=== PATIENT | female | born 1970 | race Caucasian/White ===

== ENCOUNTER → 2017-11-21 16:38 | Outpatient (CLI) | payer MEDICARE, MEDICAID, SELFPAY ==
[2017-11-21 18:05] LABS: Absolute Lymphocyte Count 4.84 X10^3/ul (0.83-4.51); Absolute Neutrophil Count 9.9 X10^3/uL (2.0-7.7); Basophil# 0.04 X10^3/uL; Basophil% 0.3 % (0-1); Eosinophils% 1.9 % (0-5); Hematocrit 42.8 % (37-47); Hemoglobin 13.7 g/dl (12.0-15.0); Lymphocyte # 4.84 X10^3/ul (4.0); Lymphocyte % 30.8 % (19-41); Mean Corpuscular Hgb 29.7 pg (27.0-32.0); Mean Corpuscular Volume 92.6 fL (81-99); Mean Platelet Vol. 10.3 fl (6.2-12.0); Monocyte# 0.57 X10^3/uL; Monocyte% 3.6 % (0-10); Neutrophil # 9.93 X10^3/uL (2.7-7.7); Neutrophil % 63.1 % (47-70); Platelet Count 393 K/mm3 (150-450); RBC Distribution Width SD 51.4 fl (35.1-43.9); Red Blood Count 4.62 M/mm3 (4.2-5.4); White Blood Count 15.7 K/mm3 (4.4-11.0)
[2017-11-21 18:06] LABS: POSITIVE COUNT NO; POSITIVE DIFFERENTIAL NO; POSITIVE MORPHOLOGY NO
[2017-11-21 18:17] LABS: Erythrocyte Sedimentation Rate 50 mm/hr (0-20)
[2017-11-23 13:00] LABS: ANTINUCLEAR ANTIBODIES DIRECT Negative (Negative)
== END ==
PROVIDERS: Family Provider Family Medicine; PCP Family Medicine; Visit Provider Family Medicine
DX: R89.9 Unspecified abnormal finding in specimens from other organs, systems and tissues (principal)
CPT/HCPCS: 36415; 85025; 85652; 86038; 86140

== ENCOUNTER → 2017-11-23 15:43 | Outpatient (CLI) | payer MEDICARE, MEDICAID, SELFPAY ==
--- NOTE | 2017-11-23 15:44 | MRI_ITS ---
STUDY: MRI LUMBAR SPINE WITHOUT CONTRAST REASON FOR EXAM: Female, 47 years old. Back pain and bilateral leg pain TECHNIQUE: Standardized fat and water weighted pulse sequences were obtained in the sagittal and axial planes. COMPARISON: None FINDINGS: T12-L1: Normal endplates. Normal disc height, hydration and morphology. Normal bilateral facet joints. Normal central canal and bilateral lateral recesses. Normal bilateral intervertebral neural foramina. Normal lumbar lordosis. There is no substantial scoliosis. Normal conus medullaris that terminates at the L1 level. L1-2: Mild bulging annulus with bilateral facet and ligamentum flavum hypertrophy. Minimal central canal stenosis. L2-3: Disc desiccation. Bilateral facet and ligamentum flavum hypertrophy with mild to moderate central canal stenosis. L3-4: Disc desiccation and L4 Schmorl's node. Mild bulging annulus with superimposed left foraminal annular fissure and bilateral facet and ligamentum flavum hypertrophy. Mild to moderate central canal stenosis and mild right foraminal stenosis. L4-5: Disc space narrowing and desiccation with anterior osteophytes. Bulging annulus with bilateral facet and ligamentum flavum hypertrophy. Moderate central canal stenosis and moderate to severe bilateral lateral recess stenoses. Moderate to severe right and moderate left foraminal stenoses. L5-S1: Disc desiccation and discogenic endplate changes. Bulging annulus and left foraminal osteophyte with bilateral facet and ligamentum flavum hypertrophy. Moderate left lateral recess stenosis. Severe left and moderate right foraminal stenoses. Normal visualized sacral ala. Normal visualized paraspinous soft tissue structures. MRI/Spine Lumbar (Routine) IMPRESSION: Multilevel degenerative disc and facet disease as described. Severe left foraminal stenosis at L5-S1. Moderate to severe bilateral lateral recess stenoses at L4-5. Moderate to severe right foraminal stenosis at L4-5. Electronically Signed: Tommy Petersen MD at 3:30 EST Tel , Service support ,
== END ==
PROVIDERS: Family Provider Family Medicine; PCP Family Medicine; Visit Provider Orthopaedic Surgery
DX: M54.5 Low back pain (principal); G89.29 Other chronic pain
CPT/HCPCS: 72148

== ENCOUNTER → 2017-12-13 15:43 | Outpatient (CLI) | payer MEDICARE, MEDICAID, SELFPAY ==
--- NOTE | 2017-12-13 15:45 | CT_ITS ---
STUDY: CT ABDOMEN WITH CONTRAST REASON FOR EXAM: Female, 47 years old. Persistent epigastric pain. RADIATION DOSAGE (If Supplied By Facility): CTDIvol = ( 20.34 ) mGy, DLP = ( 870.54 ) mGycm TECHNIQUE: Transaxial images were obtained post I.V. administration of 100mL ml of Isovue 300 contrast, and with oral contrast. Sagittal and coronal images were reconstructed. Individualized dose optimization techniques were used for this CT. COMPARISON: 02/25/2016. FINDINGS: The visualized lung bases are unremarkable. The visualized portions of the heart are within normal limits. There is decreased attenuation of the liver consistent with steatosis. There is marked hepatomegaly. There is non-visualization of the gallbladder, which may be secondary to either contraction or a prior cholecystectomy. Normal spleen. Normal pancreas. Normal bilateral adrenal glands. No acute abnormalities of the kidneys. Both kidneys show small cortical scars. Both kidneys show partial duplication with pronounced on the left. Stable nonobstructing 1 mm stone in the lower pole of the right kidney. Stable 7 mm nonobstructing stone in the lower pole of left kidney. Normal visualized stomach. Normal small intestine. Normal colon. There is non-visualization of the appendix. Normal abdominal aorta. Normal inferior vena cava. There is borderline retroperitoneal lymphadenopathy with enlarged nodes no greater than 10mm in the short axis diameter. Normal abdominal wall. There are diffuse degenerative changes of the visualized lumbar spine. CT/Abdomen WITH IV Contrast IMPRESSION: There is no definite acute abnormality. Marked fatty liver and hepatomegaly. Bilateral duplicated and scarred kidneys, with nonobstructing renal stones. Electronically Signed: Boy Castañeda MD at 16:41 EST , Service support ,
[2017-12-13 16:00] LABS: CREATININE FINGERSTICK 1.2 mg/dL (0.55-1.02)
== END ==
PROVIDERS: Family Provider Family Medicine; PCP Family Medicine; Visit Provider Family Medicine
DX: R10.13 Epigastric pain (principal)
CPT/HCPCS: 74160; Q9967

== ENCOUNTER → 2018-01-19 10:00 | Outpatient (CLI) | payer MEDICARE, MEDICAID, SELFPAY ==
--- NOTE | 2018-01-19 10:11 | NM_ITS ---
CLINICAL: 47-year-old female with reported history of chronic abdominal pain. SEMI-SOLID PHASE 99m Tc SULFUR COLLOID GASTRIC EMPTYING STUDY COMPARISON: CT of the abdomen report 12/13/2017 FINDINGS: The patient was administered 1.1 mCi of 99m Tc sulfur colloid mixed with oatmeal and consumed per os. Image acquisitions in the anterior-posterior projections for a total of 60 minutes. There is prompt visualization of the stomach. There is no gastroesophageal reflux identified. First order kinetics are maintained throughout the duration of the acquisitions. The T1/2 linear fit was calculated to be 265.68 minutes, (Normal: 12-56 minutes). NM/Gastric Emptying Study IMPRESSION: 1. ABNORMAL 99m Tc sulfur colloid semi-solid phase (oatmeal) gastric emptying imaging examination. A. There is significantly delayed semi-solid phase gastric emptying compared to normal controls with maintained first order kinetics throughout all components of the examination. (Norberto healy al, J Nucl Med Tech 38: 186, 2010). Electronically Signed: Abdoul Harris DO at 13:31 EDT Tel , Service support ,
== END ==
PROVIDERS: Family Provider Family Medicine; PCP Family Medicine; Visit Provider Internal Medicine Gastroenterology
DX: R10.13 Epigastric pain (principal)
CPT/HCPCS: 78264; A9541

== ENCOUNTER 2018-01-29 09:23 | Inpatient (IN) | payer MEDICARE, MEDICAID, SELFPAY ==
[2018-01-29] VITALS (8 sets, daily range): BP systolic 103–148; BP diastolic 55–69; PULSE 72–81; RESP 13–20; TEMP 36.9–37.2; O2SAT 92–98; BMI 40.6
[2018-01-29 09:36] LABS: Bedside Glucose 146 mg/dL (70-110)
--- NOTE | 2018-01-29 09:42 | RAD_ITS ---
STUDY: X-RAY CHEST REASON FOR EXAM: Female, 47 years old. Mental status changes. TECHNIQUE: Single AP portable view of the chest. COMPARISON: Comparison is made with prior study dated February 08, 2016. FINDINGS: EKG electrodes are seen. The lungs are clear and expanded. There is no demonstrated pleural abnormality. Normal size heart. Normal mediastinum and geovanna. Normal visualized pulmonary arteries. Normal visualized aortic arch and descending thoracic aorta. Normal visualized thoracic spine. Normal visualized ribs, clavicles, and shoulders. There is no demonstrated abnormality of the visualized soft tissue structures of the upper abdomen. RAD/Chest 1 View (Portable) IMPRESSION: Normal x-ray examination of the chest. Electronically Signed: Rufus Pike MD at 10:20 EDT Tel [phone], Service support ,
--- NOTE | 2018-01-29 09:42 | EKG12_ITS ---
Test Reason : CONFUSION Blood Pressure : / mmHG Vent. Rate : 078 BPM Atrial Rate : 078 BPM P-R Int : 146 ms QRS Dur : 080 ms QT Int : 380 ms P-R-T Axes : 064 028 047 degrees QTc Int : 433 ms Normal sinus rhythm Normal ECG Confirmed by EAN CRABTREE, [place] ([id number]), scientific publications editor VÍCTOR IRBY ([id number]) on 01/30/2018 3:16:57 PM Referred By: CRIS/DALILA Confirmed By:[place] MCKOY MD
--- NOTE | 2018-01-29 09:42 | CT_ITS ---
STUDY: CT BRAIN WITHOUT CONTRAST REASON FOR EXAM: Female, 47 years old. Contusion since last night. RADIATION DOSAGE (If Supplied By Facility): CTDIvol = ( 44.99 ) mGy, DLP = ( 745.49 ) mGycm TECHNIQUE: Transaxial CT imaging of the brain was performed without administration of intravenous contrast material. Individualized dose optimization techniques were used for this CT. COMPARISON: None. FINDINGS: Normal soft tissue structures. Normal calvarium. Normal size ventricles and extra-axial spaces for the patient's age. Normal white matter tracts of the cerebral hemispheres. Normal basal ganglia and thalami. Normal brainstem. Normal cerebellum. There is no intracranial hemorrhage. There are no findings of an acute ischemic infarction. Normal visualized paranasal sinuses. Empty sella. CT/Brain/Head without Contrast IMPRESSION: Normal unenhanced CT scan of the brain. Electronically Signed: Rufus Pike MD at 10:30 EDT Tel [phone], Service support ,
--- NOTE | 2018-01-29 09:47 | ED.VISSUMM ---
- ER Visit Summary Date of Service: 01/29/18 Chief Complaint: Confusion History of Present Illness: The patient is a 47 F 3 of chronic pain, reflux, rjs-kqmgdyu-bvheqionj diabetes, hypothyroidism and chronic back pain. Patient brought in by her significant other who has been her male disposal plant operator for 20 years. He states he has never seen her like this. Last night she seemed confused. Since he was sleeping comfortably trouble waking her it was throughout the night. Since he is more confused today and he brought her in for evaluation. He denies any head injury or head trauma. No fever. No vomiting or diarrhea. No recent med changes. She is on chronic Percocet and fentanyl patches for chronic pain. He denies ever using any illicit drugs. Physical Examination: Middle-aged female no acute distress. Initial blood pressure 117/64. Pulse ox 94% on room air no signs of hypoxia. Her initial blood sugar is 146 per the nursing staff. HEENT exam no facial trauma. No scalp or head trauma. Pupils round reactive light. Her eyes are open. She is answering questions. There is no facial droop. Her slurred speech. Neck nontender no meningismus. Lungs clear to auscultation bilaterally. Heart regular rhythm no murmur. Chest wall nontender. Abdomen soft nondistended normal bowel sounds no peritoneal signs. She is moving all 4 extremities. Back exam nontender. Skin unremarkable. No petechiae or purpura. Neurologically she is awake she will answer questions. At times she does seem somewhat somnolent but easily arousable. She is confused to the day, month and year. She does seem confused. But has normal motor activity. Test Results: No acute abnormality reviewed by me read by the radiologist. Chest x-ray no acute abnormality. CBC white count 14,000 reviewing her old labs she has had multiple prior elevated white counts in the past. Normal H&H. Electrolytes unremarkable. Gap is 6. Glucose 139. She does have elevated BUN and creatinine of 41 and 2.66. Her prior most recent creatinine was 1.2. Liver enzymes normal. UA 25-50 red cells otherwise unremarkable no signs of infection. Emergency Department Course and Treatment: Middle aged diabetic female with confusion and mental status change. Treatment Plan: Jc exam no change patient remains confused. She does not know day, month or year. She has no motor deficits. I spoke to the hospitalist Dr. Sánchez and he will evaluate her for admission for confusion. Disposition: Admission Impression: Acute confusion with decreased mental status uncertain etiology Chronic pain syndrome History of diabetes This note was generated with e[employer] dictation software. It may contain incorrect words, spelling, and punctuation that were not noted in review of the chart prior to signing ED Disposition - Plan for ED Patient: Chief Complaint: Confusion Referrals: Aron Palumbo MD [Primary Care Provider] -
--- NOTE | 2018-01-29 09:50 | ED.DCSUM_ITS ---
- ER Visit Summary Date of Service: 01/29/18 Chief Complaint: Confusion History of Present Illness: The patient is a 47 F 3 of chronic pain, reflux, non -insulin-dependent diabetes, hypothyroidism and chronic back pain. Patient brought in by her significant other who has been her male care manager cna for 20 years. He states he has never seen her like this. Last night she seemed confused. Since he was sleeping comfortably trouble waking her it was throughout the night. Since he is more confused today and he brought her in for evaluation. He denies any head injury or head trauma. No fever. No vomiting or diarrhea. No recent med changes. She is on chronic Percocet and fentanyl patches for chronic pain. He denies ever using any illicit drugs. Physical Examination: Middle-aged female no acute distress. Initial blood pressure 117/64. Pulse ox 94% on room air no signs of hypoxia. Her initial blood sugar is 146 per the nursing staff. HEENT exam no facial trauma. No scalp or head trauma. Pupils round reactive light. Her eyes are open. She is answering questions. There is no facial droop. Her slurred speech. Neck nontender no meningismus. Lungs clear to auscultation bilaterally. Heart regular rhythm no murmur. Chest wall nontender. Abdomen soft nondistended normal bowel sounds no peritoneal signs. She is moving all 4 extremities. Back exam nontender. Skin unremarkable. No petechiae or purpura. Neurologically she is awake she will answer questions. At times she does seem somewhat somnolent but easily arousable. She is confused to the day, month and year. She does seem confused. But has normal motor activity. Test Results: No acute abnormality reviewed by me read by the radiologist. Chest x-ray no acute abnormality. CBC white count 14,000 reviewing her old labs she has had multiple prior elevated white counts in the past. Normal H&H. Electrolytes unremarkable. Gap is 6. Glucose 139. She does have elevated BUN and creatinine of 41 and 2.66. Her prior most recent creatinine was 1.2. Liver enzymes normal. UA 25-50 red cells otherwise unremarkable no signs of infection. Emergency Department Course and Treatment: Middle aged diabetic female with confusion and mental status change. Treatment Plan: Jc exam no change patient remains confused. She does not know day, month or year. She has no motor deficits. I spoke to the hospitalist Dr. Sánchez and he will evaluate her for admission for confusion. Disposition: Admission Impression: Acute confusion with decreased mental status uncertain etiology Chronic pain syndrome History of diabetes This note was generated with [employer] dictation software. It may contain incorrect words, spelling, and punctuation that were not noted in review of the chart prior to signing ED Disposition - Plan for ED Patient: Chief Complaint: Confusion Referrals: Aron Palumbo MD [Primary Care Provider] -
[2018-01-29 09:58] LABS: Absolute Lymphocyte Count 3.59 X10^3/ul (0.83-4.51); Absolute Neutrophil Count 9.4 X10^3/uL (2.0-7.7); Basophil# 0.03 X10^3/uL; Basophil% 0.2 % (0-1); Eosinophil# 0.21 X10^3/uL; Eosinophils% 1.5 % (0-5); Hematocrit 39.2 % (37-47); Hemoglobin 12.7 g/dl (12.0-15.0); Lymphocyte # 3.59 X10^3/ul (4.0); Lymphocyte % 25.7 % (19-41); Mean Corp Hgb Conc 32.4 g/gl (32-36); Mean Corpuscular Hgb 29.5 pg (27.0-32.0); Mean Platelet Vol. 9.3 fl (6.2-12.0); Monocyte# 0.71 X10^3/uL; Monocyte% 5.1 % (0-10); Neutrophil # 9.42 X10^3/uL (2.7-7.7); Neutrophil % 67.3 % (47-70); Platelet Count 330 K/mm3 (150-450); RBC Distribution Width CV 14.3 % (11.6-14.6); RBC Distribution Width SD 47.5 fl (35.1-43.9); Red Blood Count 4.31 M/mm3 (4.2-5.4)
[2018-01-29 09:59] LABS: POSITIVE COUNT NO; POSITIVE DIFFERENTIAL NO; POSITIVE MORPHOLOGY NO
[2018-01-29 10:16] LABS: AST(SGOT) 31 U/L (15-37); Alanine Aminotransfer ALT/SGPT 29 U/L (13-56); Albumin, Serum 3.8 g/dL (3.2-5.0); Alkaline Phosphatase 73 U/L (45-117); Anion Gap 6 (5-15); BUN 41 mg/dL (7-18); BUN/Creat Ratio 15.4 RATIO (10-20); Bilirubin, Direct 0.13 mg/dL (0.00-0.30); Calcium,Total 8.7 mg/dL (8.5-10.1); Chloride 111 mmol/L (98-107); Creatinine, Serum 2.66 mg/dL (0.55-1.02); EST Glomerular Filtration Rate 20 mL/min (>60); Est Glom Filt Rate - Afr Amer 25 mL/min (>60); Estimated Creatinine Clearance 23.27 ml/min; Globulin 3.6 g/dL (2.2-4.2); Glucose 139 mg/dL (74-106); Potassium 5.1 mmol/L (3.5-5.1); Protein, Total 7.4 g/dL (6.4-8.2); Sodium Level 141 mmol/L (136-145)
[2018-01-29 10:33] LABS: Mucous, Urine 0 SEEN /hpf (<or=2+); White Blood Cells 0 SEEN /hpf (0-5)
[2018-01-29 10:35] LABS: Color, Urine Yellow (Yellow); Glucose, Dipstick Normal (Normal); Ketone-Dipstick Negative (Negative); Leukocyte Esterase-Dipstick Negative /ul (Negative); Nitrite-Dipstick Negative (Negative); Occult Blood-Urine 250 /ul (Negative); Protein-Dipstick 15 mg/dl (Negative); Urine Bilirubin Dipstick Negative (Negative); Urine Clarity Clear (Clear); Urine Urobilinogen Normal (Normal)
[2018-01-29 10:49] LABS: Red Blood Cells-Urine 25-50 SEEN /hpf (0-5); Squamous Epithelial Cells - UA 0-5 SEEN /hpf (5-10)
[2018-01-29 10:50] LABS: Bacteria RARE /hpf (None Seen); Hyaline Cast 0-5 SEEN /lpf (0-5)
--- NOTE | 2018-01-29 11:32 | NURSING ---
DR URI LYNCH
--- NOTE | 2018-01-29 11:43 | NURSING ---
MED SURG KATLYN, CONFUSION URI
[2018-01-29] MEDS: 0.9% Normal Saline 1,000 ML 150 ML IV ×2 (14:53→19:24)
[2018-01-29] MEDS: Albuterol 2.5 MG/3 ML VIAL.NEB. INHALATION (15:13)
--- NOTE | 2018-01-29 16:08 | PCM.HP.STD ---
<Mariposa Iverson - Last Filed: 01/29/18 16:32> Problem List (1) Acute cholecystitis Status: Resolved (2) Morbid obesity Status: Chronic (3) Chronic low back pain Status: Chronic (4) COPD (chronic obstructive pulmonary disease) Status: Chronic (5) Hypertension Status: Chronic (6) Cervical cancer Status: Chronic (7) Severe sepsis Status: Resolved (8) Gallbladder rupture Status: Resolved (9) Respiratory failure Status: Resolved (10) Surgical wound dehiscence Status: Resolved (11) Wound infection after surgery Status: Resolved History of Present Illness Date of Admission: 01/29/18 Chief Complaint: Altered mental status The patient is a 47 year old F who presents to the emergency room with altered mental status. Patient was brought in by her fiteja who states he has never seen her like this before. Per ER report, he noted patient to be lethargic and had trouble waking her throughout the night and also noted confusion. Ghislaine? is no longer available at bedside. Patient is confused on assessment and not able to answer questions appropriately. When asked what year it is patient states Kiet. She answers Royal to various other questions. Patient appears very restless and is pulling at blankets and moving legs. Per records, she has a past medical history of chronic pain syndrome, type 2 diabetes mellitus, COPD, tobacco dependence, GERD, hypothyroidism, gout. Past Medical History Past Medical History (Chronic Problems): Chronic Problems (Last Reviewed 12/12/17 @ 16:04 by Ting Denis) Morbid obesity (Chronic) Chronic low back pain (Chronic) COPD (chronic obstructive pulmonary disease) (Chronic) Hypertension (Chronic) Cervical cancer (Chronic) Allergies codeine Allergy (Verified 01/29/18 09:24) Rash nabumetone [From Relafen] Allergy (Verified 01/29/18 09:24) Rash Sulfa (Sulfonamide Antibiotics) Allergy (Verified 01/29/18 09:24) Rash albuterol Adverse Reaction (Uncoded 01/29/18 09:24) Laryngospasms Home Medications: Ambulatory Orders Medication Instructions Recorded Cholecalciferol (Vitamin D3) 2,000 unit PO DAILY 08/12/17 [Vitamin D3] Duloxetine HCl 60 mg PO DAILY 08/12/17 Febuxostat [Uloric] 80 mg PO DAILY 08/12/17 Furosemide [Lasix] 20 mg PO DAILY PRN 08/12/17 Irbesartan [Avapro] 75 mg PO DAILY 08/12/17 Levothyroxine [Synthroid] 88 mcg PO DAILY 08/12/17 Linagliptin [Tradjenta] 5 mg PO DAILY 08/12/17 Montelukast [Singulair] 10 mg PO DAILY 08/12/17 Omeprazole [Prilosec] 20 mg PO DAILY 08/12/17 Oxycodone HCl/Acetaminophen 1 each PO Q8H 08/12/17 [Percocet 7.5-325 mg Tablet] Potassium Citrate [Urocit-K] 15 meq PO DAILY 08/12/17 Pregabalin [Lyrica] 200 mg PO BID 08/12/17 Topiramate [Topamax] 100 mg PO DAILY 08/12/17 fentaNYL patch [Duragesic] 25 mcg TRANSDERM. 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 VTE Information - Inpt Only VTE Present on Admission: No VTE Mechan Device Prophylaxis: None VTE Pharm Prophylaxis ordered?: Yes Patient Problems: Active and Suspected Problems (Last Reviewed 12/12/17 @ 16:04 by Ting Denis) Encephalopathy acute (Acute) - Physical Exam General: Alert, No apparent distress, Confused, Disoriented HEENT: Atraumatic, PERRLA, EOMI, Normocephalic Oral: Dry Mucosa Neck: Supple, No JVD, Negative Carotid Bruits Lungs: Diminished, Wheezes Cardiovascular: Regular rate, Regular Rhythm, Normal S1, Normal S2, No murmurs Abdomen: Bowel Sounds Present, Soft, Non Tender, Non-Distended, Obese Extremities: No clubbing, No cyanosis, No edema, Capillary Refill Less than 3 Seconds Skin: No rashes, No breakdown Musculoskeletal: No Tenderness to Palpation of Joints or Extremities Neurological: Cranial nerves II-XII grossly intact Psych/Mental Status: Restless Vital Signs Temp Pulse Resp BP Pulse Ox 99.0 F 74 20 H 114/55 L 94 01/29/18 14:51 01/29/18 15:14 01/29/18 15:14 01/29/18 14:51 01/29/18 14:51 Oxygen Delivery Method Room Air Weight: 110.6 kg Body Mass Index (BMI) 40.6 Assessment/Plan Active and Suspected Problems (Last Reviewed 12/12/17 @ 16:04 by Ting Denis) Encephalopathy acute (Acute) 1. Altered mental status, suspected acute encephalopathy secondary to polypharmacy-tox screen pending. Brain CT unremarkable. Chest x-ray normal. Urinalysis unremarkable. Patient is on multi drug pain regimen at home including Percocet, Lyrica, fentanyl patch, baclofen which are on hold at this time. Continue to monitor. 2. Acute renal failure on suspected chronic kidney disease stage III-creatinine on admission 2.66. Baseline appears to be 1.1-1.3. Home Lasix regimen on hold. Continue IV fluids. Monitor BMP. CT of abdomen November 2017 showed fatty liver and hepatomegaly. Bilateral scarred kidneys with nonobstructing renal stones. 3. Mild leukocytosis-unclear etiology. Appears chronic in nature. WBC in the range of 12-25 since 2016. 4. Chronic back pain/chronic pain syndrome-on multidrug regimen including baclofen, fentanyl patch, Lidoderm patch, Percocet, Lyrica. Recommend patient follow-up with pain management as outpatient. Lumbar spine x-ray from October 2017 show degenerative disc disease and arthritic changes at L4-L5 and L5-S1. 5. Type 2 diabetes mellitus-home oral regimen on hold. Accu-Cheks before meals at bedtime with sliding scale insulin. Check hemoglobin A1c. 6. Chronic COPD-no acute exacerbation. Continue albuterol and budesonide aerosols. 7. Hypertension-stable. 8. Hypothyroidism-continue home Synthroid regimen. 9. Tobacco dependence-encourage smoking cessation. 10. GERD-continue PPI. 11. Gout 12. Morbid obesity-nutrition consult for diet education when patient is alert and oriented. DVT prophylaxis-heparin subcu. This patient was seen by KRISHNA Cody under the supervision of Dr. Sánchez. <Aron Sánchez - Last Filed: 01/29/18 17:30> Problem List (1) Encephalopathy acute Status: Acute (2) Morbid obesity Status: Chronic (3) Chronic low back pain Status: Chronic (4) COPD (chronic obstructive pulmonary disease) Status: Chronic (5) Hypertension Status: Chronic (6) Cervical cancer Status: Chronic History of Present Illness The patient is a 47 year old F presents with confusion. Confusion was much worse over the past couple days where the patient has been having mild clonus plus perseverating her speech. The patient's fianc? said he spoke with the patient's son and who noted that the patient was having some perseverated speech couple weeks ago and was concerned that she was high on drugs. The patient's fianc? is unaware of the patient using any kind of illicit substances. Patient is on narcotics but he is not suspecting that she is using them inappropriately. She presented to the emergency room and had a head CT that was negative. The patient's fianc? noted that she has been feeling sick and rundown over the past month or so but otherwise she has been feeling well. Patient is confused and unable to provide any adequate history. 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 Perseverated speech. HEENT: Atraumatic, PERRLA, EOMI, Normocephalic Oral: Moist Mucosa, No Gingival or Mucosal Lesions/ Ulcerations Neck: No Nodes, Thyroid Normal Size and Texture Lungs: Clear to auscultation, Normal air movement, No rhonchi, No wheeze, Diminished Cardiovascular: Regular rate, Regular Rhythm, Normal S1, Normal S2, No murmurs Abdomen: Bowel Sounds Present, Soft, Non Tender, Non-Distended Extremities: No edema, No Calf Tenderness Skin: No rashes, No breakdown Neurological: Cranial nerves II-XII grossly intact, Deep Tendon Reflexes 2+/4 and Symmetrical Psych/Mental Status: Agitated, Restless Vital Signs Temp Pulse Resp BP Pulse Ox 37.2 C 74 20 H 114/55 L 94 01/29/18 14:51 01/29/18 15:14 01/29/18 15:14 01/29/18 14:51 01/29/18 14:51 Oxygen Delivery Method Room Air Weight: 110.6 kg Body Mass Index (BMI) 40.6 Laboratory Tests Past 24 Hrs 01/29/18 16:15 Urine Opiates Screen NEGATIVE Urine Methadone Screen NEGATIVE Ur Barbiturates Screen NEGATIVE Ur Phencyclidine Scrn NEGATIVE Ur Amphetamines Screen NEGATIVE U Methamphetamin-MDMA NEGATIVE U Benzodiazepines Scrn NEGATIVE Urine Cocaine Screen NEGATIVE U Cannabinoids Screen NEGATIVE Ur Drug Screen Comment Assessment/Plan Seen and examined independent. Agree the above note by the nurse practitioner. 1. Acute encephalopathy: Toxic versus metabolic or combination thereof. Hold potentiating medications. Check an MRI of the brain to rule out any other acute process. Given the patient's progress may need to consider getting a lumbar puncture. Drug screen negative. I doubt the patient is uremic as a cause of her myoclonus and change in mental status. 2. Acute kidney injury: Baseline creatinine is 1.23 from October. Presumed prerenal. IV fluids. 3. Leukocytosis: No left shift. Has been chronically elevated in the past and actually today it is lower than it has been. Continue to monitor. No evidence of any infection at this time. 4. DVT prophylaxis with heparin Code Visit Inpatient E&M: 68387 Init Hosp L3
[2018-01-29 17:15] LABS: Amphetamine Urine VISTA NEGATIVE (<1000 ng/mL); Barbiturate Urine VISTA NEGATIVE (< 200 ng/mL); Benzodiazepine Urine VISTA NEGATIVE (< 200 ng/mL); Cocaine Urine VISTA NEGATIVE (< 300 ng/mL); Ecstacy Urine VISTA NEGATIVE (< 500 ng/mL); Methadone Urine VISTA NEGATIVE (< 300 ng/mL); PCP Urine VISTA NEGATIVE (< 25 ng/mL); THC Urine VISTA NEGATIVE (< 50 ng/mL); Vista UDS pH Range 5
[2018-01-29 17:59] LABS: Hemoglobin A1c 7.4 % (4.2-6.3)
[2018-01-29] MEDS: Budesonide Respules 0.5 MG/2 ML AMPUL.NEB. INHALATION (19:55)
[2018-01-29] MEDS: Heparin Injection 5,000 UNITS/ML Syringe 5000 UNITS SC (22:44)
[2018-01-29 22:55] LABS: Bedside Glucose 131 mg/dL (70-110)
[2018-01-30] VITALS (7 sets, daily range): BP systolic 116–146; BP diastolic 79–91; PULSE 71–93; RESP 16–18; TEMP 36.3–36.9; O2SAT 95–99
[2018-01-30] MEDS: 0.9% Normal Saline 1,000 ML 150 ML IV ×2 (02:05→08:22)
[2018-01-30 06:25] LABS: Absolute Lymphocyte Count 3.74 X10^3/ul (0.83-4.51); Absolute Neutrophil Count 5.7 X10^3/uL (2.0-7.7); Basophil# 0.02 X10^3/uL; Basophil% 0.2 % (0-1); Eosinophil# 0.17 X10^3/uL; Eosinophils% 1.7 % (0-5); Lymphocyte # 3.74 X10^3/ul (4.0); Mean Corp Hgb Conc 32.4 g/gl (32-36); Mean Corpuscular Hgb 29.2 pg (27.0-32.0); Mean Platelet Vol. 9.8 fl (6.2-12.0); Monocyte# 0.47 X10^3/uL; Monocyte% 4.7 % (0-10); Neutrophil # 5.69 X10^3/uL (2.7-7.7); Neutrophil % 56.3 % (47-70); Platelet Count 328 K/mm3 (150-450); RBC Distribution Width CV 14.2 % (11.6-14.6); RBC Distribution Width SD 46.8 fl (35.1-43.9); Red Blood Count 4.11 M/mm3 (4.2-5.4); White Blood Count 10.1 K/mm3 (4.4-11.0)
[2018-01-30 06:27] LABS: POSITIVE COUNT NO; POSITIVE DIFFERENTIAL NO; POSITIVE MORPHOLOGY NO
[2018-01-30 06:48] LABS: Anion Gap 7 (5-15); BUN 24 mg/dL (7-18); BUN/Creat Ratio 21.4 RATIO (10-20); Calcium,Total 8.5 mg/dL (8.5-10.1); Chloride 113 mmol/L (98-107); Creatinine, Serum 1.12 mg/dL (0.55-1.02); EST Glomerular Filtration Rate 55 mL/min (>60); Est Glom Filt Rate - Afr Amer 67 mL/min (>60); Estimated Creatinine Clearance 55.28 ml/min; Glucose 135 mg/dL (74-106); Potassium 4.3 mmol/L (3.5-5.1); Sodium Level 141 mmol/L (136-145)
[2018-01-30] MEDS: Levothyroxine 88 MCG Tablet PO (06:58)
[2018-01-30 07:11] LABS: Bedside Glucose 133 mg/dL (70-110)
[2018-01-30] MEDS: Budesonide Respules 0.5 MG/2 ML AMPUL.NEB. INHALATION ×2 (07:40→19:05)
--- NOTE | 2018-01-30 08:02 | CPS ---
pt refuses Albuterol, it is listed as an allergy, says it causes her to have an asthma attack.
[2018-01-30 09:31] LABS: Bedside Glucose 121 mg/dL (70-110)
[2018-01-30] MEDS: Pantoprazole Sodium 20 MG Tablet PO (09:38)
[2018-01-30] MEDS: Heparin Injection 5,000 UNITS/ML Syringe 5000 UNITS SC ×2 (09:38→22:19)
--- NOTE | 2018-01-30 10:32 | PN_ITS ---
<Mariposa Iverson - Last Filed: 01/30/18 10:33> Patient Problems: Active and Suspected Problems (Last Reviewed 12/12/17 @ 16:04 by Ting Denis) Encephalopathy acute (Acute) Subjective: Patient seen and examined. Mental status improved from prior assessment. Patient answers most questions appropriately. She does say things repetitively during conversation. She states she has been taking her medications as prescribed although she states she uses fentanyl patch occasionally. She states she has not had episodes of confusion in the past. Denies other complaints. - Physical Exam General: Alert, Oriented x3, Cooperative, No apparent distress HEENT: Atraumatic, PERRLA, EOMI, Normocephalic Neck: Supple, No JVD, Negative Carotid Bruits Lungs: Clear to auscultation, Diminished Cardiovascular: Regular rate, Regular Rhythm, Normal S1, Normal S2, No murmurs Abdomen: Bowel Sounds Present, Soft, Non Tender, Non-Distended, Obese Extremities: No clubbing, No cyanosis, No edema, Capillary Refill Less than 3 Seconds Skin: No rashes, No breakdown Musculoskeletal: No Tenderness to Palpation of Joints or Extremities Neurological: Cranial nerves II-XII grossly intact Psych/Mental Status: Normal Affect, Appropriate Vital Signs Temp Pulse Resp BP Pulse Ox 97.9 F 72 16 116/79 95 01/30/18 07:19 01/30/18 07:40 01/30/18 07:40 01/30/18 07:19 01/30/18 07:19 Oxygen Delivery Method Room Air Weight: 110.6 kg Body Mass Index (BMI) 40.6 Intake and Output for Last 24 Hours 01/28/18 01/29/18 01/30/18 23:59 23:59 23:59 Intake Total 450 / 450 3046 / 3046 Balance 450 / 450 3046 / 3046 Laboratory Tests Past 24 Hrs 01/29/18 01/30/18 01/30/18 16:15 05:50 05:50 WBC 10.1 RBC 4.11 L Hgb 12.0 Hct 37.0 MCV 90.0 MCH 29.2 MCHC 32.4 RDW 14.2 RDW Differential 46.8 H Plt Count 328 MPV 9.8 Immature Gran % (Auto) 0.100 Neut % (Auto) 56.3 Lymph % (Auto) 37.0 [place] % (Auto) 4.7 Eos % (Auto) 1.7 Baso % (Auto) 0.2 Absolute Neuts (auto) 5.7 Absolute Lymphs (auto) 3.74 Total Counted Not Reportable Sodium 141 Potassium 4.3 Chloride 113 H Carbon Dioxide 21.0 Anion Gap 7 BUN 24 H Creatinine 1.12 H Estim Creat Clear Calc 55.28 Est GFR (MDRD) Af Amer 67 Est GFR (MDRD) Non-Af 55 L BUN/Creatinine Ratio 21.4 H Glucose 135 H Calcium 8.5 Urine Opiates Screen NEGATIVE Urine Methadone Screen NEGATIVE Ur Barbiturates Screen NEGATIVE Ur Phencyclidine Scrn NEGATIVE Ur Amphetamines Screen NEGATIVE U Methamphetamin-MDMA NEGATIVE U Benzodiazepines Scrn NEGATIVE Urine Cocaine Screen NEGATIVE U Cannabinoids Screen NEGATIVE Ur Drug Screen Comment POC Glucose 01/30/18 01/29/18 01/29/18 06:56 22:42 17:21 POC Glucose 133 H 131 H 121 H Medical Necessity - Tobacco Use Smoking Status: Current every day smoker Tobacco Use: Cigarettes Assessment/Plan Active and Suspected Problems (Last Reviewed 12/12/17 @ 16:04 by Ting Denis) Encephalopathy acute (Acute) Patient is a 47-year-old female admitted 01/29/18 due to altered mental status. She has a past medical history of chronic pain syndrome, type 2 diabetes mellitus, COPD, tobacco dependence, GERD, hypothyroidism, gout. 1. Altered mental status, acute encephalopathy-unclear etiology. Toxic versus metabolic? Tox screen negative. Brain CT unremarkable. Chest x-ray normal. Urinalysis unremarkable. No signs of infectious etiology. Patient is on multi drug pain regimen at home including Percocet, Lyrica, fentanyl patch, baclofen which are on hold at this time. Mental status improved. MRI of the brain pending. 2. Acute renal failure on suspected chronic kidney disease stage III- creatinine on admission 2.66. Baseline appears to be 1.1-1.3. Home Lasix regimen on hold. Continue IV fluids. Monitor BMP. CT of abdomen November 2017 showed fatty liver and hepatomegaly. Bilateral scarred kidneys with nonobstructing renal stones. Creatinine now at baseline, 1.12. 3. Mild leukocytosis-resolved. Unclear etiology. Appears chronic in nature. WBC in the range of 12-25 since 2016. 4. Chronic back pain/chronic pain syndrome-on multidrug regimen including baclofen, fentanyl patch, Lidoderm patch, Percocet, Lyrica. Patient follows with Dr. Gallegos as outpatient. Lumbar spine x-ray from October 2017 show degenerative disc disease and arthritic changes at L4-L5 and L5-S1. 5. Type 2 diabetes mellitus-home oral regimen on hold. Accu-Cheks before meals at bedtime with sliding scale insulin. Hemoglobin A1c 7.4%. 6. Chronic COPD-no acute exacerbation. Continue albuterol and budesonide aerosols. 7. Hypertension-stable. 8. Hypothyroidism-continue home Synthroid regimen. 9. Tobacco dependence-encourage smoking cessation. 10. GERD-continue PPI. 11. Gout 12. Morbid obesity-encourage diet and lifestyle modifications. DVT prophylaxis-heparin subcu. This patient was seen by KRISHNA Cody under the supervision of Dr. Sánchez. <Aron Sánchez - Last Filed: 01/30/18 11:28> - Physical Exam General: Alert, Oriented x3, Cooperative, No apparent distress, - - still with some confusion HEENT: Atraumatic, Normocephalic Lungs: Clear to auscultation, Normal air movement, No rhonchi, No wheeze, Diminished Cardiovascular: Regular rate, Regular Rhythm, Normal S1, Normal S2 Abdomen: Bowel Sounds Present, Soft, Non Tender, Non-Distended Extremities: No edema, No Calf Tenderness Psych/Mental Status: Normal Affect, Appropriate Vital Signs Temp Pulse Resp BP Pulse Ox 36.3 C L 81 16 142/83 H 97 01/30/18 11:22 01/30/18 11:22 01/30/18 11:22 01/30/18 11:22 01/30/18 11:22 Oxygen Delivery Method Room Air Weight: 110.6 kg Body Mass Index (BMI) 40.6 Intake and Output for Last 24 Hours 01/28/18 01/29/18 01/30/18 23:59 23:59 23:59 Intake Total 450 / 450 4135 / 4135 Balance 450 / 450 4135 / 4135 Laboratory Tests Past 24 Hrs 01/29/18 01/30/18 01/30/18 16:15 05:50 05:50 WBC 10.1 RBC 4.11 L Hgb 12.0 Hct 37.0 MCV 90.0 MCH 29.2 MCHC 32.4 RDW 14.2 RDW Differential 46.8 H Plt Count 328 MPV 9.8 Immature Gran % (Auto) 0.100 Neut % (Auto) 56.3 Lymph % (Auto) 37.0 [place] % (Auto) 4.7 Eos % (Auto) 1.7 Baso % (Auto) 0.2 Absolute Neuts (auto) 5.7 Absolute Lymphs (auto) 3.74 Total Counted Not Reportable Sodium 141 Potassium 4.3 Chloride 113 H Carbon Dioxide 21.0 Anion Gap 7 BUN 24 H Creatinine 1.12 H Estim Creat Clear Calc 55.28 Est GFR (MDRD) Af Amer 67 Est GFR (MDRD) Non-Af 55 L BUN/Creatinine Ratio 21.4 H Glucose 135 H Calcium 8.5 Urine Opiates Screen NEGATIVE Urine Methadone Screen NEGATIVE Ur Barbiturates Screen NEGATIVE Ur Phencyclidine Scrn NEGATIVE Ur Amphetamines Screen NEGATIVE U Methamphetamin-MDMA NEGATIVE U Benzodiazepines Scrn NEGATIVE Urine Cocaine Screen NEGATIVE U Cannabinoids Screen NEGATIVE Ur Drug Screen Comment POC Glucose 01/30/18 01/30/18 01/29/18 11:18 06:56 22:42 POC Glucose 186 H 133 H 131 H 01/29/18 17:21 POC Glucose 121 H Assessment/Plan Pt seen and examined independently. I agree with the above note. 1. Encephalopathy: favoring toxic given meds. Check MRI to r/o other processes. Improved. Doubt encephalitis. Code Visit Inpatient E&M: 80341 Subs Hosp L2
[2018-01-30 11:21] LABS: Bedside Glucose 186 mg/dL (70-110)
--- NOTE | 2018-01-30 11:23 | CASEMGMT ---
RN ELENA Face to Face with patient for initial transition planning/care coordination assessment. RN CM introduced self and role at [facility]. Patient lying in bed, alert and oriented. Patient willing to participate in assessment and is able to answer all questions appropriately. Care providers, pharmacy, and demographics verified. See link attached. Patient wishes to discharge home, denies need for home health at this time. Patient states she has no further needs or concerns at this time. CM to follow for discharge planning needs that may arise. Disposition Plan: Patient to discharge home with family support and follow-up plans in place.
--- NOTE | 2018-01-30 11:26 | MRI_ITS ---
STUDY: MRI BRAIN WITHOUT CONTRAST REASON FOR EXAM: Female, 47 years old. Encephalopathy and altered mental status TECHNIQUE: Standardized multiplanar fat and water weighted pulse sequences were obtained. COMPARISON: CT of the brain on January 29, 2018. FINDINGS: Normal size of the ventricles and extra-axial spaces for the patient's age. Normal white matter tracts of the supratentorial brain. Chronic ischemic changes within the jose bilaterally possibly due to old lacunar infarcts Normal bilateral basal ganglia. Normal thalami. There is no extra-axial fluid accumulation. Normal flow voids within the major intracranial circulation suggesting patency by spin echo criteria. Empty sella deformity of uncertain clinical significance. Normal, infundibular stalk, optic chiasm and hypothalamus. Normal tectal plate and pineal gland. Normal midbrain, jose and medulla. Normal cerebellum. Normal basal cisterns. Normal bilateral temporal bones. Normal bilateral internal auditory canals. No demonstrated orbital abnormality, within the constraints of a routine brain study. Normal visualized paranasal sinuses. Normal calvarium and skull base. Normal visualized soft tissue structures. Normal visualized upper cervical spine. MRI/Brain without Contrast IMPRESSION: Chronic ischemic changes or possible old bilateral lacunar infarcts in the jose. No significant periventricular white matter disease or evidence for acute infarct Incidental finding of empty sella deformity of uncertain significance although may be seen in association with pseudotumor cerebri. Clinical correlation is recommended in this regard Electronically Signed: Chuck Gonzales MD at 17:29 EDT , Service support ,
[2018-01-30 16:35] LABS: Bedside Glucose 125 mg/dL (70-110)
[2018-01-30] MEDS: fentaNYL 25 MCG Patch TRANSDERM. (16:57)
--- NOTE | 2018-01-30 17:40 | ECHOD_ITS ---
Version 2 Reason For Study: CVA Procedure This was a 2D Doppler, Color Flow transthoracic echocardiogram. Exam performed portable in patient room. Left Ventricle Normal size and thickness. The estimated ejection fraction is 65 %. Stage 1 diastolic dysfunction. No regional wall motion abnormalities noted. Right Ventricle Normal size and thickness. Normal systolic function. Atria Normal left atrium. Normal right atrium. Normal atrial septum. Bubble contrast study negative for right to left interatrial shunt. Mitral Valve The mitral valve is structurally normal. No prolapse or stenosis seen. Trivial mitral valve insufficiency. Tricuspid Valve Normal tricuspid valve. Trivial tricuspid valve insufficiency. Right ventricular systolic pressure estimated to be 31 mmHg. Aortic Valve Normal aortic valve. Trisinus/trileaflet aortic valve. Pulmonic Valve Normal pulmonic valve. Great Vessels Normal aortic root. Normal arch. Normal inferior vena cava. Inferior vena cava collapse with sniff. Pericardium/Pleural No pericardial effusion. Medication Performed a rapid injection of agitated mix of 9 cc saline and 1cc air to assess for atrial septal defect. MMode/2D Measurements & Calculations LVIDd: 4.3 cm IVSd: 1.1 cm Ao root diam: 2.8 cm LVIDs: 2.9 cm LVPWd: 0.85 cm LA dimension: 3.2 cm RVDd: 3.4 cm FS: 32.6 % LAV(MOD-bp): 46.7 ml EDV(MOD-sp4): 110.8 ml EDV(MOD-sp2): 99.2 ml LAV(MOD-bp) Indexed: 21.7 ml/m2 ESV(MOD-sp4): 45.3 ml EF(MOD-sp2): 65.5 % LAV(MOD-sp2): 46.9 ml EF(MOD-sp4): 59.1 % LAV(MOD-sp4): 41.4 ml SV(MOD-sp4): 65.5 ml SV(MOD-sp2): 65.0 ml LA A4 area: 15.0 cm2 RA A4 area: 12.4 cm2 Doppler Measurements & Calculations MV E max stevie: 93.9 cm/sec Lat Peak E' Stevie: 10.2 cm/sec Med Peak E' Stevie: 8.6 cm/sec MV A max stevie: 81.0 cm/sec E/E' lat: 9.2 E/E' med: 10.9 MV E/A: 1.2 Ao V2 max: 127.2 cm/sec LV V1 max: 105.7 cm/sec PA V2 max: 96.5 cm/sec Ao max P.5 mmHg LV V1 max P.5 mmHg TR max stevie: 249.6 cm/sec TR max P.9 mmHg Interpretation Summary The estimated ejection fraction is 65 %. Stage 1 diastolic dysfunction. Trivial mitral valve insufficiency. Trivial tricuspid valve insufficiency. Right ventricular systolic pressure estimated to be 31 mmHg. Compared to echo report dated 10/21/2014, no appreciable changes noted. Bubble contrast study negative for right to left interatrial shunt. Ordering Physician: Aron Sánchez Referring Physician: Aron Palumbo MD Performed By: Liz Quintana RDCS
[2018-01-30 23:26] LABS: Bedside Glucose 120 mg/dL (70-110)
[2018-01-31] MEDS: Acetaminophen 325 MG Tablet 650 MG PO (01:43)
[2018-01-31] MEDS: Lidocaine 5% Patch 1 PATCH TOPICAL (01:54)
[2018-01-31 02:00] VITALS: BP 135/68; PULSE 77; RESP 16; TEMP 36.8; O2SAT 98
[2018-01-31] MEDS: 0.9% NaCl Peripheral Flush Adult/Peds IV ×2 (06:37→12:10)
[2018-01-31] MEDS: Cosyntropin 0.25 MG Vial IV (06:37)
[2018-01-31] MEDS: Levothyroxine 88 MCG Tablet PO (06:38)
[2018-01-31 06:43] LABS: Hematocrit 38.7 % (37-47); Hemoglobin 13.3 g/dl (12.0-15.0); Mean Corp Hgb Conc 34.4 g/gl (32-36); Mean Corpuscular Hgb 30.4 pg (27.0-32.0); Mean Corpuscular Volume 88.4 fL (81-99); Mean Platelet Vol. 9.9 fl (6.2-12.0); Platelet Count 353 K/mm3 (150-450); RBC Distribution Width CV 13.8 % (11.6-14.6); RBC Distribution Width SD 44.2 fl (35.1-43.9); Red Blood Count 4.38 M/mm3 (4.2-5.4); White Blood Count 12.1 K/mm3 (4.4-11.0)
[2018-01-31 06:47] LABS: Scan Indicated on CBC? Y/N NO
[2018-01-31 06:51] LABS: Bedside Glucose 142 mg/dL (70-110)
[2018-01-31 07:06] VITALS: PULSE 66; RESP 16
[2018-01-31] MEDS: Budesonide Respules 0.5 MG/2 ML AMPUL.NEB. INHALATION (07:06)
[2018-01-31 07:17] LABS: Anion Gap 10 (5-15); BUN 18 mg/dL (7-18); BUN/Creat Ratio 19.6 RATIO (10-20); Chloride 112 mmol/L (98-107); Cholesterol 219 mg/dL (200); Creatinine, Serum 0.92 mg/dL (0.55-1.02); EST Glomerular Filtration Rate 69 mL/min (>60); Est Glom Filt Rate - Afr Amer 84 mL/min (>60); Estimated Creatinine Clearance 67.29 ml/min; Glucose 135 mg/dL (74-106); High Density Lipoprotein 28 mg/dL; Potassium 4.3 mmol/L (3.5-5.1); Sodium Level 140 mmol/L (136-145); Thyroid Stim Hormone (TSH) 6.42 uIU/mL (0.358-3.74); Triglycerides 453 mg/dL
[2018-01-31 08:07] VITALS: PULSE 69; RESP 18; O2SAT 99
[2018-01-31 08:54] VITALS: BP 131/79; PULSE 69; RESP 18; TEMP 36.8; O2SAT 99
--- NOTE | 2018-01-31 09:09 | PN_ITS ---
<Mariposa Iverson - Last Filed: 01/31/18 09:09> Subjective: Patient seen and examined. Currently having echocardiogram. Nursing reports patient has been alert and oriented overnight with no episodes of confusion. Discussed with patient neurology consult given MRI reporting possible old stroke. Patient became tearful and states she has grandchildren to help take care of. She denies any neurological symptoms. Denies other complaints. - Physical Exam General: Alert, Oriented x3, Cooperative, No apparent distress HEENT: Atraumatic, PERRLA, EOMI, Normocephalic Neck: Supple, No JVD, Negative Carotid Bruits Lungs: Clear to auscultation, Diminished Cardiovascular: Regular rate, Regular Rhythm, Normal S1, Normal S2, No murmurs Abdomen: Bowel Sounds Present, Soft, Non Tender, Non-Distended, Obese Extremities: No clubbing, No cyanosis, No edema, Capillary Refill Less than 3 Seconds Skin: No rashes, No breakdown Musculoskeletal: No Tenderness to Palpation of Joints or Extremities Neurological: Cranial nerves II-XII grossly intact, Neuro grossly intact Psych/Mental Status: Normal Affect, Appropriate Vital Signs Temp Pulse Resp BP Pulse Ox 98.2 F 66 16 135/68 H 98 01/31/18 02:00 01/31/18 07:06 01/31/18 07:06 01/31/18 02:00 01/31/18 02:00 Oxygen Delivery Method Room Air Weight: 110.6 kg Body Mass Index (BMI) 40.6 Intake and Output for Last 24 Hours 01/29/18 01/30/18 01/31/18 23:59 23:59 23:59 Intake Total 450 / 450 4735 / 4735 1200 / 1200 Balance 450 / 450 4735 / 4735 1200 / 1200 Laboratory Tests Past 24 Hrs 01/31/18 01/31/18 01/31/18 06:20 06:20 06:20 WBC 12.1 H RBC 4.38 Hgb 13.3 Hct 38.7 MCV 88.4 MCH 30.4 MCHC 34.4 RDW 13.8 RDW Differential 44.2 H Plt Count 353 MPV 9.9 Sodium 140 Potassium 4.3 Chloride 112 H Carbon Dioxide 18.0 L Anion Gap 10 BUN 18 Creatinine 0.92 Estim Creat Clear Calc 67.29 Est GFR (MDRD) Af Amer 84 Est GFR (MDRD) Non-Af 69 BUN/Creatinine Ratio 19.6 Glucose 135 H Calcium 9.0 Triglycerides 453 H Cholesterol 219 H LDL Cholesterol TNP VLDL Cholesterol TNP HDL Cholesterol 28 L TSH 6.42 H Cortisol 30.40 H POC Glucose 01/31/18 01/30/18 01/30/18 06:36 22:16 16:27 POC Glucose 142 H 120 H 125 H 01/30/18 01/29/18 11:18 17:21 POC Glucose 186 H 121 H Medical Necessity - Tobacco Use Smoking Status: Current every day smoker Tobacco Use: Cigarettes Assessment/Plan Patient is a 47-year-old female admitted 01/29/18 due to altered mental status. She has a past medical history of chronic pain syndrome, type 2 diabetes mellitus, COPD, tobacco dependence, GERD, hypothyroidism, gout. 1. Altered mental status, acute encephalopathy-unclear etiology. Toxic versus metabolic? Tox screen negative. Brain CT unremarkable. Chest x-ray normal. Urinalysis unremarkable. No signs of infectious etiology. Patient is on multi drug pain regimen at home including Percocet, Lyrica, fentanyl patch, baclofen. Neurology consult given abnormal MRI-see findings below. 2. Abnormal MRI-MRI showed chronic ischemic changes or possible old bilateral lacunar infarcts in the jose. No evidence of acute infarct. Incidental finding of empty sella deformity of uncertain significance. Echocardiogram ordered and pending. Neurology consulted. Cortisol 30. TSH 6.42. Continue Plavix, statin. 3. Acute renal failure on suspected chronic kidney disease stage III- creatinine on admission 2.66. Baseline appears to be 1.1-1.3. Home Lasix regimen on hold. Patient received IV fluids which have since been discontinued. CT of abdomen November 2017 showed fatty liver and hepatomegaly. Bilateral scarred kidneys with nonobstructing renal stones. Creatinine now 0.92. 4. Mild leukocytosis-resolved. Unclear etiology. Appears chronic in nature. WBC in the range of 12-25 since 2016. 5. Chronic back pain/chronic pain syndrome-on multidrug regimen including baclofen, fentanyl patch, Lidoderm patch, Percocet, Lyrica. Patient follows with Dr. Gallegos as outpatient. Lumbar spine x-ray from October 2017 show degenerative disc disease and arthritic changes at L4-L5 and L5-S1. 6. Type 2 diabetes mellitus-home oral regimen on hold. Accu-Cheks before meals at bedtime with sliding scale insulin. Hemoglobin A1c 7.4%. 7. Chronic COPD-no acute exacerbation. Continue albuterol and budesonide aerosols. 8. Hypertension-stable. 9. Hypothyroidism-continue home Synthroid regimen. 10. Tobacco dependence-encourage smoking cessation. 11. GERD-continue PPI. 12. Gout 13. Morbid obesity-encourage diet and lifestyle modifications. DVT prophylaxis-heparin subcu. This patient was seen by KRISHNA Cody under the supervision of Dr. Sánchez. <Aron Sánchez - Last Filed: 01/31/18 18:08> - Physical Exam General: Alert, Oriented x3, Cooperative, No apparent distress, - - Much more coherent today. HEENT: Atraumatic, Normocephalic Vital Signs Temp Pulse Resp BP Pulse Ox 37.5 C H 73 18 158/78 H 100 01/31/18 13:21 01/31/18 13:21 01/31/18 13:21 01/31/18 13:21 01/31/18 13:21 Oxygen Delivery Method Room Air Weight: 110.6 kg Body Mass Index (BMI) 40.6 Intake and Output for Last 24 Hours 01/29/18 01/30/18 01/31/18 23:59 23:59 23:59 Intake Total 450 / 450 4735 / 4735 1550 / 1550 Balance 450 / 450 4735 / 4735 1550 / 1550 Laboratory Tests Past 24 Hrs 01/31/18 01/31/18 01/31/18 06:20 06:20 06:20 WBC 12.1 H RBC 4.38 Hgb 13.3 Hct 38.7 MCV 88.4 MCH 30.4 MCHC 34.4 RDW 13.8 RDW Differential 44.2 H Plt Count 353 MPV 9.9 Sodium 140 Potassium 4.3 Chloride 112 H Carbon Dioxide 18.0 L Anion Gap 10 BUN 18 Creatinine 0.92 Estim Creat Clear Calc 67.29 Est GFR (MDRD) Af Amer 84 Est GFR (MDRD) Non-Af 69 BUN/Creatinine Ratio 19.6 Glucose 135 H Calcium 9.0 Triglycerides 453 H Cholesterol 219 H LDL Cholesterol TNP VLDL Cholesterol TNP HDL Cholesterol 28 L TSH 6.42 H Free T4 Cortisol 30.40 H 01/31/18 06:20 WBC RBC Hgb Hct MCV MCH MCHC RDW RDW Differential Plt Count MPV Sodium Potassium Chloride Carbon Dioxide Anion Gap BUN Creatinine Estim Creat Clear Calc Est GFR (MDRD) Af Amer Est GFR (MDRD) Non-Af BUN/Creatinine Ratio Glucose Calcium Triglycerides Cholesterol LDL Cholesterol VLDL Cholesterol HDL Cholesterol TSH Free T4 0.94 Cortisol POC Glucose 01/31/18 01/31/18 01/30/18 12:09 06:36 22:16 POC Glucose 180 H 142 H 120 H Assessment/Plan Name independently. Agree with above note by the nurse practitioner. 1. Acute encephalopathy probably combination of toxic and metabolic. Toxic due to her medications and metabolic due to renal failure. Recommended discontinuing Lyrica. Patient may continue with her other medications as previously prescribed. There was concern for pontine stroke spent on evaluation by neurology is not felt to be pontine strokes and thus no additional neurologic workup is necessary.
[2018-01-31 09:37] LABS: T4 Free Direct 0.94 ng/dL (0.76-1.46)
[2018-01-31] MEDS: Pantoprazole Sodium 20 MG Tablet PO (09:45)
[2018-01-31] MEDS: Clopidogrel Bisulfate 75 MG Tablet PO (09:45)
[2018-01-31] MEDS: Heparin Injection 5,000 UNITS/ML Syringe 5000 UNITS SC (09:46)
--- NOTE | 2018-01-31 12:05 | DCINST_ITS ---
- Discharge Diagnoses Current Active Problems: Current Active and Chronic Problems (Last Reviewed 12/12/17 @ 16:04 by Ting Denis) Encephalopathy acute (Acute) You will use the following diet at home:: Calorie/Carbohydrate Controlled ( specify 1200, 1400, etc) Discharge Activity: Return to Normal Activity Call your doctor if you observe: Numbness or Tingling, Shortness of breath, Dizziness, Fainting spells, Chest pain, Increased palpitations (irregular heartbeat) Allergies/Adverse Reactions: Allergies codeine Allergy (Verified 01/29/18 09:24) Rash nabumetone [From Relafen] Allergy (Verified 01/29/18 09:24) Rash Sulfa (Sulfonamide Antibiotics) Allergy (Verified 01/29/18 09:24) Rash albuterol Adverse Reaction (Uncoded 01/29/18 09:24) Laryngospasms Medications to take at Discharge Cholecalciferol (Vitamin D3) [Vitamin D3] 2,000 unit PO DAILY 08/12/17 Duloxetine HCl 60 mg PO DAILY 08/12/17 Febuxostat [Uloric] 80 mg PO DAILY 08/12/17 Furosemide [Lasix] 20 mg PO DAILY PRN 08/12/17 Irbesartan [Avapro] 75 mg PO DAILY 08/12/17 Levothyroxine [Synthroid] 88 mcg PO DAILY 08/12/17 Linagliptin [Tradjenta] 5 mg PO DAILY 08/12/17 Montelukast [Singulair] 10 mg PO DAILY 08/12/17 Omeprazole [Prilosec] 20 mg PO DAILY 08/12/17 Oxycodone HCl/Acetaminophen [Percocet 7.5-325 mg Tablet] 1 each PO Q8H PRN PRN 08/12/17 Potassium Citrate [Urocit-K] 15 meq PO DAILY 08/12/17 Topiramate [Topamax] 100 mg PO DAILY 08/12/17 fentaNYL patch [Duragesic patch] 25 mcg TRANSDERM. Q72H 08/12/17 Boric Acid 300 gm MC PRN PRN 11/04/17 Cetirizine HCl [All Day Allergy] 10 mg PO DAILY 11/04/17 Fluticasone/Vilanterol [Breo Ellipta 200-25 Mcg INH] 1 each IH DAILY 11/04/17 Hydroxyzine HCl 12.5 mg PO Q8 PRN 11/04/17 Lidocaine [Lidoderm Patch] 2 patch TOPICAL DAILY 11/04/17 Metformin HCl 1,000 mg PO BID 11/04/17 Sodium Chloride [Saline Nasal [place]] 30 ml NS Q2H PRN PRN 11/04/17 Baclofen 20 mg PO TID PRN 01/29/18 Aspirin E.C. [Ecotrin] 81 mg PO DAILY@0800 #30 tab 01/31/18 Atorvastatin Calcium [Lipitor] 40 mg PO QHS #30 tab 01/31/18 The following prescriptions were given: Aspirin E.C. [Ecotrin] 81 mg PO DAILY@0800 #30 tab Atorvastatin Calcium [Lipitor] 40 mg PO QHS #30 tab Primary Care Physician: Aron Palumbo MD [Primary Care Provider] - Please follow up with your Primary Care Physician in: 1 Week
--- NOTE | 2018-01-31 12:06 | PCM.DC.SUM ---
<Mariposa Iverson - Last Filed: 01/31/18 12:16> Discharge Date and Diagnosis Date of Admission: 01/29/18 Date of Discharge: 01/31/18 - Primary Discharge Diagnosis Active and Suspected Problems (Last Reviewed 12/12/17 @ 16:04 by Ting Denis) 1. Acute toxic encephalopathy 2. Acute kidney injury - Secondary Discharge Diagnosis Chronic Problems (Last Reviewed 12/12/17 @ 16:04 by Ting Denis) Morbid obesity (Chronic) Chronic low back pain (Chronic) COPD (chronic obstructive pulmonary disease) (Chronic) Hypertension (Chronic) Cervical cancer (Chronic) Hospital Course and Treatment Imaging Results: Diagnostic Data Brain CT 01/29/18 09:42 IMPRESSION: Normal unenhanced CT scan of the brain. Electronically Signed: Rufus Pike MD at 10:30 EDT Tel [phone], Service support , Chest X-Ray 01/29/18 09:42 IMPRESSION: Normal x-ray examination of the chest. Electronically Signed: Rufus Pike MD at 10:20 EDT Tel [phone], Service support , Brain MRI 01/30/18 11:26 IMPRESSION: Chronic ischemic changes or possible old bilateral lacunar infarcts in the jose. No significant periventricular white matter disease or evidence for acute infarct Incidental finding of empty sella deformity of uncertain significance although may be seen in association with pseudotumor cerebri. Clinical correlation is recommended in this regard Electronically Signed: Chuck Gonzales MD at 17:29 EDT , Service support , Dr. Aguilera- Neurology. Operations: None Procedures: 2-D Echocardiogram Summary of Care Provided: Patient is a 47-year-old female admitted 01/29/18 due to altered mental status. She has a past medical history of chronic pain syndrome, type 2 diabetes mellitus, COPD, tobacco dependence, GERD, hypothyroidism, gout. 1. Altered mental status, acute toxic encephalopathy-suspected secondary to polypharmacy. Tox screen negative. Brain CT unremarkable. Chest x-ray normal. Urinalysis unremarkable. No signs of infectious etiology. Patient is on multi drug pain regimen at home including Percocet, Lyrica, fentanyl patch, baclofen. Lyrica discontinued at discharge. MRI showed chronic ischemic changes or possible old bilateral lacunar infarcts in the jose. No evidence of acute infarct. Incidental finding of empty sella deformity of uncertain significance. Neurology consulted. Per neurology, no stroke on MRI. Patient will be discharged on aspirin, statin. Echocardiogram pending at discharge and can be followed by primary care physician. Follow-up with primary care physician in 1 week. 2. Acute renal failure on suspected chronic kidney disease stage III-creatinine on admission 2.66. Baseline appears to be 1.1-1.3. Patient received IV fluids. CT of abdomen November 2017 showed fatty liver and hepatomegaly. Bilateral scarred kidneys with nonobstructing renal stones. Creatinine now 0.92. 3. Mild leukocytosis-resolved. Unclear etiology. Appears chronic in nature. WBC in the range of 12-25 since 2016. 4. Chronic back pain/chronic pain syndrome-on multidrug regimen including baclofen, fentanyl patch, Lidoderm patch, Percocet, Lyrica. Patient follows with Dr. Gallegos as outpatient. Lumbar spine x-ray from October 2017 show degenerative disc disease and arthritic changes at L4-L5 and L5-S1. Lyrica discontinued at discharge. 5. Type 2 diabetes mellitus-continue home oral regimen. Hemoglobin A1c 7.4%. 6. Chronic COPD-no acute exacerbation. Continue albuterol and budesonide aerosols. 7. Hypertension-stable. 8. Hypothyroidism-continue home Synthroid regimen. 9. Tobacco dependence-encourage smoking cessation. 10. GERD-continue PPI. 11. Gout 12. Morbid obesity-encourage diet and lifestyle modifications. General: Alert, Oriented x3, Cooperative, No apparent distress HEENT: Atraumatic, PERRLA, EOMI, Normocephalic Neck: Supple, No JVD, Negative Carotid Bruits Lungs: Clear to auscultation, Diminished Cardiovascular: Regular rate, Regular Rhythm, Normal S1, Normal S2, No murmurs Abdomen: Bowel Sounds Present, Soft, Non Tender, Non-Distended, Obese Extremities: No clubbing, No cyanosis, No edema, Capillary Refill Less than 3 Seconds Skin: No rashes, No breakdown Musculoskeletal: No Tenderness to Palpation of Joints or Extremities Neurological: Cranial nerves II-XII grossly intact, Neuro grossly intact Psych/Mental Status: Normal Affect, Appropriate Patient seen and examined prior to discharge. Physical assessment as noted above. Patient stable for discharge home. This patient was seen by KRISHNA Cody under the supervision of Dr. Sánchez. Discharge Diet: Low fat/ Low Cholesterol, Carb Control Diet Discharge Activity: Return to Normal Activity Call your doctor if you observe: Numbness or Tingling, Shortness of breath, Dizziness, Fainting spells, Chest pain, Increased palpitations (irregular heartbeat) Home Medications: Medications to take at Discharge Cholecalciferol (Vitamin D3) [Vitamin D3] 2,000 unit PO DAILY 08/12/17 Duloxetine HCl 60 mg PO DAILY 08/12/17 Febuxostat [Uloric] 80 mg PO DAILY 08/12/17 Furosemide [Lasix] 20 mg PO DAILY PRN 08/12/17 Irbesartan [Avapro] 75 mg PO DAILY 08/12/17 Levothyroxine [Synthroid] 88 mcg PO DAILY 08/12/17 Linagliptin [Tradjenta] 5 mg PO DAILY 08/12/17 Montelukast [Singulair] 10 mg PO DAILY 08/12/17 Omeprazole [Prilosec] 20 mg PO DAILY 08/12/17 Oxycodone HCl/Acetaminophen [Percocet 7.5-325 mg Tablet] 1 each PO Q8H PRN PRN 08/12/17 Potassium Citrate [Urocit-K] 15 meq PO DAILY 08/12/17 Topiramate [Topamax] 100 mg PO DAILY 08/12/17 fentaNYL patch [Duragesic patch] 25 mcg TRANSDERM. Q72H 08/12/17 Boric Acid 300 gm MC PRN PRN 11/04/17 Cetirizine HCl [All Day Allergy] 10 mg PO DAILY 11/04/17 Fluticasone/Vilanterol [Breo Ellipta 200-25 Mcg INH] 1 each IH DAILY 11/04/17 Hydroxyzine HCl 12.5 mg PO Q8 PRN 11/04/17 Lidocaine [Lidoderm Patch] 2 patch TOPICAL DAILY 11/04/17 Metformin HCl 1,000 mg PO BID 11/04/17 Sodium Chloride [Saline Nasal [place]] 30 ml NS Q2H PRN PRN 11/04/17 Baclofen 20 mg PO TID PRN 01/29/18 Aspirin E.C. [Ecotrin] 81 mg PO DAILY@0800 #30 tab 01/31/18 Atorvastatin Calcium [Lipitor] 40 mg PO QHS #30 tab 01/31/18 Following Prescrptions Were Given to Patient: Aspirin E.C. [Ecotrin] 81 mg PO DAILY@0800 #30 tab Atorvastatin Calcium [Lipitor] 40 mg PO QHS #30 tab Primary Care Physician: Aron Palumbo MD [Primary Care Provider] - Please follow up with your Primary Care Physician in: 1 Week Disposition: Home Minutes spent on discharge:: 35 Patient Condition:: Stable Medical Necessity - Tobacco Use Smoking Status: Current every day smoker Tobacco Use: Cigarettes Meaningful Use Info Meaningful Use Diagnoses (Choose all that apply): None applicable <Aron Sánchez - Last Filed: 01/31/18 18:10> Discharge Date and Diagnosis - Secondary Discharge Diagnosis Chronic Problems (Last Reviewed 12/12/17 @ 16:04 by Ting Denis) Morbid obesity (Chronic) Chronic low back pain (Chronic) COPD (chronic obstructive pulmonary disease) (Chronic) Hypertension (Chronic) Cervical cancer (Chronic) Hospital Course and Treatment Operations: None Procedures: 2-D Echocardiogram Summary of Care Provided: Seen and examined pending. Agree with the above note by the nurse practitioner. Patient presents with encephalopathy likely combination of toxic and metabolic. Patient underwent an MRI that showed questionable pontine strokes. Evaluation of neurology felt that these were not pontine strokes. Recommend patient discontinue her Lyrica. The patient is a 47 year old F [] Discharge Diet: Low fat/ Low Cholesterol, Carb Control Diet Discharge Activity: Return to Normal Activity Call your doctor if you observe: Numbness or Tingling, Shortness of breath, Dizziness, Fainting spells, Chest pain, Increased palpitations (irregular heartbeat) Disposition: Home Minutes spent on discharge:: 35 Meaningful Use Info Meaningful Use Diagnoses (Choose all that apply): None applicable Code Visit Inpatient E&M: 19702 Disch Hosp
[2018-01-31] MEDS: DULoxetine Hcl 60 MG Capsule PO (12:11)
--- NOTE | 2018-01-31 12:16 | DS.PCM_ITS ---
<Mariposa Iverson - Last Filed: 01/31/18 12:16> Discharge Date and Diagnosis Date of Admission: 01/29/18 Date of Discharge: 01/31/18 - Primary Discharge Diagnosis Active and Suspected Problems (Last Reviewed 12/12/17 @ 16:04 by Ting Denis) 1. Acute toxic encephalopathy 2. Acute kidney injury - Secondary Discharge Diagnosis Chronic Problems (Last Reviewed 12/12/17 @ 16:04 by Ting Denis) Morbid obesity (Chronic) Chronic low back pain (Chronic) COPD (chronic obstructive pulmonary disease) (Chronic) Hypertension (Chronic) Cervical cancer (Chronic) Hospital Course and Treatment Imaging Results: Diagnostic Data Brain CT 01/29/18 09:42 IMPRESSION: Normal unenhanced CT scan of the brain. Electronically Signed: Rufus Pike MD at 10:30 EDT Tel [phone], Service support , Chest X-Ray 01/29/18 09:42 IMPRESSION: Normal x-ray examination of the chest. Electronically Signed: Rufus Pike MD at 10:20 EDT Tel [phone], Service support , Brain MRI 01/30/18 11:26 IMPRESSION: Chronic ischemic changes or possible old bilateral lacunar infarcts in the jose. No significant periventricular white matter disease or evidence for acute infarct Incidental finding of empty sella deformity of uncertain significance although may be seen in association with pseudotumor cerebri. Clinical correlation is recommended in this regard Electronically Signed: Chuck Gonzales MD at 17:29 EDT , Service support , Dr. Aguilera- Neurology. Operations: None Procedures: 2-D Echocardiogram Summary of Care Provided: Patient is a 47-year-old female admitted 01/29/18 due to altered mental status. She has a past medical history of chronic pain syndrome, type 2 diabetes mellitus, COPD, tobacco dependence, GERD, hypothyroidism, gout. 1. Altered mental status, acute toxic encephalopathy-suspected secondary to polypharmacy. Tox screen negative. Brain CT unremarkable. Chest x-ray normal. Urinalysis unremarkable. No signs of infectious etiology. Patient is on multi drug pain regimen at home including Percocet, Lyrica, fentanyl patch, baclofen. Lyrica discontinued at discharge. MRI showed chronic ischemic changes or possible old bilateral lacunar infarcts in the jose. No evidence of acute infarct. Incidental finding of empty sella deformity of uncertain significance. Neurology consulted. Per neurology, no stroke on MRI. Patient will be discharged on aspirin, statin. Echocardiogram pending at discharge and can be followed by primary care physician. Follow-up with primary care physician in 1 week. 2. Acute renal failure on suspected chronic kidney disease stage III- creatinine on admission 2.66. Baseline appears to be 1.1-1.3. Patient received IV fluids. CT of abdomen November 2017 showed fatty liver and hepatomegaly. Bilateral scarred kidneys with nonobstructing renal stones. Creatinine now 0.92. 3. Mild leukocytosis-resolved. Unclear etiology. Appears chronic in nature. WBC in the range of 12-25 since 2016. 4. Chronic back pain/chronic pain syndrome-on multidrug regimen including baclofen, fentanyl patch, Lidoderm patch, Percocet, Lyrica. Patient follows with Dr. Gallegos as outpatient. Lumbar spine x-ray from October 2017 show degenerative disc disease and arthritic changes at L4-L5 and L5-S1. Lyrica discontinued at discharge. 5. Type 2 diabetes mellitus-continue home oral regimen. Hemoglobin A1c 7.4%. 6. Chronic COPD-no acute exacerbation. Continue albuterol and budesonide aerosols. 7. Hypertension-stable. 8. Hypothyroidism-continue home Synthroid regimen. 9. Tobacco dependence-encourage smoking cessation. 10. GERD-continue PPI. 11. Gout 12. Morbid obesity-encourage diet and lifestyle modifications. General: Alert, Oriented x3, Cooperative, No apparent distress HEENT: Atraumatic, PERRLA, EOMI, Normocephalic Neck: Supple, No JVD, Negative Carotid Bruits Lungs: Clear to auscultation, Diminished Cardiovascular: Regular rate, Regular Rhythm, Normal S1, Normal S2, No murmurs Abdomen: Bowel Sounds Present, Soft, Non Tender, Non-Distended, Obese Extremities: No clubbing, No cyanosis, No edema, Capillary Refill Less than 3 Seconds Skin: No rashes, No breakdown Musculoskeletal: No Tenderness to Palpation of Joints or Extremities Neurological: Cranial nerves II-XII grossly intact, Neuro grossly intact Psych/Mental Status: Normal Affect, Appropriate Patient seen and examined prior to discharge. Physical assessment as noted above. Patient stable for discharge home. This patient was seen by KRISHNA Cody under the supervision of Dr. Sánchez. Discharge Diet: Low fat/ Low Cholesterol, Carb Control Diet Discharge Activity: Return to Normal Activity Call your doctor if you observe: Numbness or Tingling, Shortness of breath, Dizziness, Fainting spells, Chest pain, Increased palpitations (irregular heartbeat) Home Medications: Medications to take at Discharge Cholecalciferol (Vitamin D3) [Vitamin D3] 2,000 unit PO DAILY 08/12/17 Duloxetine HCl 60 mg PO DAILY 08/12/17 Febuxostat [Uloric] 80 mg PO DAILY 08/12/17 Furosemide [Lasix] 20 mg PO DAILY PRN 08/12/17 Irbesartan [Avapro] 75 mg PO DAILY 08/12/17 Levothyroxine [Synthroid] 88 mcg PO DAILY 08/12/17 Linagliptin [Tradjenta] 5 mg PO DAILY 08/12/17 Montelukast [Singulair] 10 mg PO DAILY 08/12/17 Omeprazole [Prilosec] 20 mg PO DAILY 08/12/17 Oxycodone HCl/Acetaminophen [Percocet 7.5-325 mg Tablet] 1 each PO Q8H PRN PRN 08/12/17 Potassium Citrate [Urocit-K] 15 meq PO DAILY 08/12/17 Topiramate [Topamax] 100 mg PO DAILY 08/12/17 fentaNYL patch [Duragesic patch] 25 mcg TRANSDERM. Q72H 08/12/17 Boric Acid 300 gm MC PRN PRN 11/04/17 Cetirizine HCl [All Day Allergy] 10 mg PO DAILY 11/04/17 Fluticasone/Vilanterol [Breo Ellipta 200-25 Mcg INH] 1 each IH DAILY 11/04/17 Hydroxyzine HCl 12.5 mg PO Q8 PRN 11/04/17 Lidocaine [Lidoderm Patch] 2 patch TOPICAL DAILY 11/04/17 Metformin HCl 1,000 mg PO BID 11/04/17 Sodium Chloride [Saline Nasal [place]] 30 ml NS Q2H PRN PRN 11/04/17 Baclofen 20 mg PO TID PRN 01/29/18 Aspirin E.C. [Ecotrin] 81 mg PO DAILY@0800 #30 tab 01/31/18 Atorvastatin Calcium [Lipitor] 40 mg PO QHS #30 tab 01/31/18 Following Prescrptions Were Given to Patient: Aspirin E.C. [Ecotrin] 81 mg PO DAILY@0800 #30 tab Atorvastatin Calcium [Lipitor] 40 mg PO QHS #30 tab Primary Care Physician: Aron Palumbo MD [Primary Care Provider] - Please follow up with your Primary Care Physician in: 1 Week Disposition: Home Minutes spent on discharge:: 35 Patient Condition:: Stable Medical Necessity - Tobacco Use Smoking Status: Current every day smoker Tobacco Use: Cigarettes Meaningful Use Info Meaningful Use Diagnoses (Choose all that apply): None applicable <Aron Sánchez - Last Filed: 01/31/18 18:10> Discharge Date and Diagnosis - Secondary Discharge Diagnosis Chronic Problems (Last Reviewed 12/12/17 @ 16:04 by Ting Denis) Morbid obesity (Chronic) Chronic low back pain (Chronic) COPD (chronic obstructive pulmonary disease) (Chronic) Hypertension (Chronic) Cervical cancer (Chronic) Hospital Course and Treatment Operations: None Procedures: 2-D Echocardiogram Summary of Care Provided: Seen and examined pending. Agree with the above note by the nurse practitioner. Patient presents with encephalopathy likely combination of toxic and metabolic. Patient underwent an MRI that showed questionable pontine strokes. Evaluation of neurology felt that these were not pontine strokes. Recommend patient discontinue her Lyrica. The patient is a 47 year old F [] Discharge Diet: Low fat/ Low Cholesterol, Carb Control Diet Discharge Activity: Return to Normal Activity Call your doctor if you observe: Numbness or Tingling, Shortness of breath, Dizziness, Fainting spells, Chest pain, Increased palpitations (irregular heartbeat) Disposition: Home Minutes spent on discharge:: 35 Meaningful Use Info Meaningful Use Diagnoses (Choose all that apply): None applicable Code Visit Inpatient E&M: 90235 Disch Hosp
[2018-01-31 12:17] LABS: Bedside Glucose 180 mg/dL (70-110)
[2018-01-31 13:21] VITALS: BP 158/78; PULSE 73; RESP 18; TEMP 37.5; O2SAT 100
--- NOTE | 2018-01-31 13:31 | CON.PCM_ITS ---
Reason for Consult Date of Consultation: 01/31/18 Reason for Consultation: Confusion History of Present Illness: The patient is a 47 year old female with a history of what is him, nephrolithiasis, and COPD, current smoker, who was admitted with confusion which is now resolved. She says she is at her normal baseline. Apparently the confusion has resolved with improvement of hydration she was felt to be somewhat dehydrated. In the process of her evaluation an MRI was obtained which showed possible pontine infarct as well as lacunar infarcts. An empty sella. The patient has been asymptomatic. She feels her normal self. Past Medical History Past Medical History (Chronic Problems): Chronic Problems (Last Reviewed 12/12/17 @ 16:04 by Ting Denis) Morbid obesity (Chronic) Chronic low back pain (Chronic) COPD (chronic obstructive pulmonary disease) (Chronic) Hypertension (Chronic) Cervical cancer (Chronic) Allergies codeine Allergy (Verified 01/29/18 09:24) Rash nabumetone [From Relafen] Allergy (Verified 01/29/18 09:24) Rash Sulfa (Sulfonamide Antibiotics) Allergy (Verified 01/29/18 09:24) Rash albuterol Adverse Reaction (Uncoded 01/29/18 09:24) Laryngospasms Home Medications: Ambulatory Orders Medication Instructions Recorded Cholecalciferol (Vitamin D3) 2,000 unit PO DAILY 08/12/17 [Vitamin D3] Duloxetine HCl 60 mg PO DAILY 08/12/17 Febuxostat [Uloric] 80 mg PO DAILY 08/12/17 Furosemide [Lasix] 20 mg PO DAILY PRN 08/12/17 Irbesartan [Avapro] 75 mg PO DAILY 08/12/17 Levothyroxine [Synthroid] 88 mcg PO DAILY 08/12/17 Linagliptin [Tradjenta] 5 mg PO DAILY 08/12/17 Montelukast [Singulair] 10 mg PO DAILY 08/12/17 Omeprazole [Prilosec] 20 mg PO DAILY 08/12/17 Oxycodone HCl/Acetaminophen 1 each PO Q8H PRN PRN 08/12/17 [Percocet 7.5-325 mg Tablet] Potassium Citrate [Urocit-K] 15 meq PO DAILY 08/12/17 Topiramate [Topamax] 100 mg PO DAILY 08/12/17 fentaNYL patch [Duragesic patch] 25 mcg TRANSDERM. Q72H 08/12/17 Boric Acid 300 gm MC PRN PRN 11/04/17 Cetirizine HCl [All Day Allergy] 10 mg PO DAILY 11/04/17 Fluticasone/Vilanterol [Breo 1 each IH DAILY 11/04/17 Ellipta 200-25 Mcg INH] Hydroxyzine HCl 12.5 mg PO Q8 PRN 11/04/17 Lidocaine [Lidoderm Patch] 2 patch TOPICAL DAILY 11/04/17 Metformin HCl 1,000 mg PO BID 11/04/17 Sodium Chloride [Saline Nasal 30 ml NS Q2H PRN PRN 11/04/17 [place]] Baclofen 20 mg PO TID PRN 01/29/18 Aspirin E.C. [Ecotrin] 81 mg PO DAILY@0800 #30 tab 01/31/18 Atorvastatin Calcium [Lipitor] 40 mg PO QHS #30 tab 01/31/18 Surgical History: cholecystectomy, - Psychiatric History: No pertinent psych hx [employer] History: cervical cancer Lives: Spouse/ Significant Other Smoking Status: Current every day smoker Tobacco Use: Cigarettes Drugs: - - *Family History Maternal History Items: Diabetes Paternal History Items: - Review of Systems Constitutional: Denies: Chills, Fever, Weight Change HEENT: Denies: Head Aches, Sinus Congestion, Sinus Drainage Cardiovascular: Denies: Chest Pain, Palpitations Respiratory: Denies: Cough, Shortness of breath at rest, Sputum production Gastrointestinal: Denies: Abdominal Pain, Nausea, Vomiting Genitourinary: Denies: Dysuria Musculoskeletal: Denies: Joint Pain, Joint Tenderness Skin: Denies: Rash, Wounds Neurological: Denies: Numbness, Tingling, Focal weakness Psychiatric: Denies: Anxiety, Depression, Homicidal Ideations, Suicidal Ideations Hematologic/ Lymphatic: Denies: Easy Bruising, Easy Bleeding Patient Problems: Active and Suspected Problems (Last Reviewed 12/12/17 @ 16:04 by Ting Denis) Encephalopathy acute (Acute) - Physical Exam General: Alert, Oriented x3, Cooperative HEENT: Atraumatic, PERRLA, EOMI, Normocephalic Neck: Supple, No JVD, Negative Carotid Bruits Lungs: Clear to auscultation, Normal air movement Cardiovascular: Regular rate, No murmurs Abdomen: Bowel Sounds Present, Soft, Non Tender Extremities: No edema, Capillary Refill Less than 3 Seconds Skin: No rashes, No breakdown Musculoskeletal: No Tenderness to Palpation of Joints or Extremities Neurological: Cranial nerves II-XII grossly intact Psych/Mental Status: Normal Affect, Appropriate Vital Signs Temp Pulse Resp BP Pulse Ox 37.5 C H 73 18 158/78 H 100 01/31/18 13:21 01/31/18 13:21 01/31/18 13:21 01/31/18 13:21 01/31/18 13:21 Oxygen Delivery Method Room Air Weight: 110.6 kg Body Mass Index (BMI) 40.6 Intake and Output for Last 24 Hours 01/29/18 01/30/18 01/31/18 23:59 23:59 23:59 Intake Total 450 / 450 4735 / 4735 1550 / 1550 Balance 450 / 450 4735 / 4735 1550 / 1550 Laboratory Tests Past 24 Hrs 01/31/18 01/31/18 01/31/18 06:20 06:20 06:20 WBC 12.1 H RBC 4.38 Hgb 13.3 Hct 38.7 MCV 88.4 MCH 30.4 MCHC 34.4 RDW 13.8 RDW Differential 44.2 H Plt Count 353 MPV 9.9 Sodium 140 Potassium 4.3 Chloride 112 H Carbon Dioxide 18.0 L Anion Gap 10 BUN 18 Creatinine 0.92 Estim Creat Clear Calc 67.29 Est GFR (MDRD) Af Amer 84 Est GFR (MDRD) Non-Af 69 BUN/Creatinine Ratio 19.6 Glucose 135 H Calcium 9.0 Triglycerides 453 H Cholesterol 219 H LDL Cholesterol TNP VLDL Cholesterol TNP HDL Cholesterol 28 L TSH 6.42 H Free T4 Cortisol 30.40 H 01/31/18 06:20 WBC RBC Hgb Hct MCV MCH MCHC RDW RDW Differential Plt Count MPV Sodium Potassium Chloride Carbon Dioxide Anion Gap BUN Creatinine Estim Creat Clear Calc Est GFR (MDRD) Af Amer Est GFR (MDRD) Non-Af BUN/Creatinine Ratio Glucose Calcium Triglycerides Cholesterol LDL Cholesterol VLDL Cholesterol HDL Cholesterol TSH Free T4 0.94 Cortisol POC Glucose 01/31/18 01/31/18 01/30/18 12:09 06:36 22:16 POC Glucose 180 H 142 H 120 H 01/30/18 16:27 POC Glucose 125 H MRI was reviewed. This is essentially normal. Nothing acute. There may be some very mild chronic white matter disease in her jose. Assessment/Plan Active and Suspected Problems (Last Reviewed 12/12/17 @ 16:04 by Ting Denis) Encephalopathy acute (Acute) [place]: Encephalopathy, resolved. Her MRI I think is essentially normal for her age although I would recommend aspirin daily, as well as smoking cessation. She can be discharged with outpatient follow-up from neurology perspective.
--- NOTE | 2018-02-02 16:04 | CASEMGMT ---
RN CM Discharge Follow-up Phone Call: RHONDA: Deepika Strata: 4 Call Date: 02/02/18 Discharge Date: 01/31/18 Time of Call:1605 Duration: 1 min Admitting Diagnosis: KATLYN, confusion RN CM attempted call no answer. Voice message left with contact information. Follow-up appt was schedule with Dr. Aron Palumbo for 02/08/18 0800 prior to discharge.
== END 2018-01-31 15:14 | disposition home or self-care (01) | DRG 682 ==
LOC: ED 10:38 → MS3 01-30 06:17
PROVIDERS: Nurse Practitioner Family; Emergency Provider Emergency Medicine; Family Provider Family Medicine; PCP Family Medicine
DX: N17.9 Acute kidney failure, unspecified (principal); G92 Toxic encephalopathy; Z68.41 Body mass index [BMI] 40.0-44.9, adult; E66.01 Morbid (severe) obesity due to excess calories; Z71.3 Dietary counseling and surveillance; J44.9 Chronic obstructive pulmonary disease, unspecified; Z85.41 Personal history of malignant neoplasm of cervix uteri; G89.4 Chronic pain syndrome; K21.9 Gastro-esophageal reflux disease without esophagitis; E03.9 Hypothyroidism, unspecified; M10.9 Gout, unspecified; F17.210 Nicotine dependence, cigarettes, uncomplicated; D72.829 Elevated white blood cell count, unspecified; E11.22 Type 2 diabetes mellitus with diabetic chronic kidney disease; I12.9 Hypertensive chronic kidney disease with stage 1 through stage 4 chronic kidney disease, or unspecified chronic kidney disease; N18.3 Chronic kidney disease, stage 3 (moderate)
CPT/HCPCS: 36415; 70450; 70551; 71045; 80048; 80061; 80076; 80307; 81001; 82533; 82962; 83036; 84439; 84443; 85025; 85027; 93005; 93306; 94640; 97802; 99284; J7030; P9612; Q9957; A4216; J0834

== ENCOUNTER 2018-03-05 13:51 | Inpatient (IN) | payer MEDICARE, MEDICAID, SELFPAY ==
[2018-03-05] VITALS (11 sets, daily range): BP systolic 110–151; BP diastolic 55–99; PULSE 78–97; RESP 16–28; TEMP 36.5–37.4; O2SAT 94–98; BMI 36.6; BMI 39.0; BMI 39.1
[2018-03-05 14:15] LABS: Bedside Glucose 366 mg/dL (70-110)
--- NOTE | 2018-03-05 14:26 | EKG12_ITS ---
Test Reason : CONFUSION Blood Pressure : / mmHG Vent. Rate : 080 BPM Atrial Rate : 080 BPM P-R Int : 138 ms QRS Dur : 080 ms QT Int : 402 ms P-R-T Axes : 038 031 041 degrees QTc Int : 463 ms Normal sinus rhythm Low voltage QRS Borderline ECG Confirmed by EAN CRABTREE, [place] ([id number]), social media editor VÍCTOR IRBY ([id number] on 03/09/2018 10:22:11 AM Referred By: CRIS Confirmed By:[place] MCKOY MD
[2018-03-05 14:38] LABS: Absolute Lymphocyte Count 2.17 X10^3/ul (0.83-4.51); Absolute Neutrophil Count 11.5 X10^3/uL (2.0-7.7); Basophil# 0.02 X10^3/uL; Basophil% 0.1 % (0-1); Eosinophil# 0.03 X10^3/uL; Eosinophils% 0.2 % (0-5); Hemoglobin 13.7 g/dl (12.0-15.0); Lymphocyte # 2.17 X10^3/ul (4.0); Lymphocyte % 15.2 % (19-41); Mean Corp Hgb Conc 34.3 g/gl (32-36); Mean Corpuscular Hgb 29.9 pg (27.0-32.0); Mean Corpuscular Volume 87.3 fL (81-99); Mean Platelet Vol. 9.8 fl (6.2-12.0); Monocyte% 3.5 % (0-10); Neutrophil # 11.48 X10^3/uL (2.7-7.7); Neutrophil % 80.8 % (47-70); Platelet Count 356 K/mm3 (150-450); RBC Distribution Width CV 13.8 % (11.6-14.6); Red Blood Count 4.58 M/mm3 (4.2-5.4); White Blood Count 14.2 K/mm3 (4.4-11.0)
[2018-03-05 14:39] LABS: POSITIVE COUNT NO; POSITIVE DIFFERENTIAL NO; POSITIVE MORPHOLOGY NO
[2018-03-05 14:58] LABS: AST(SGOT) 31 U/L (15-37); Alanine Aminotransfer ALT/SGPT 37 U/L (13-56); Albumin, Serum 4.1 g/dL (3.2-5.0); Alkaline Phosphatase 90 U/L (45-117); BUN 23 mg/dL (7-18); BUN/Creat Ratio 14.5 RATIO (10-20); Bilirubin, Direct 0.15 mg/dL (0.00-0.30); Calcium,Total 9.5 mg/dL (8.5-10.1); Chloride 104 mmol/L (98-107); Creatinine, Serum 1.59 mg/dL (0.55-1.02); EST Glomerular Filtration Rate 37 mL/min (>60); Est Glom Filt Rate - Afr Amer 44 mL/min (>60); Estimated Creatinine Clearance 38.94 ml/min; Globulin 4.2 g/dL (2.2-4.2); Glucose 348 mg/dL (74-106); Potassium 4.6 mmol/L (3.5-5.1); Protein, Total 8.3 g/dL (6.4-8.2); Sodium Level 137 mmol/L (136-145)
[2018-03-05 14:59] LABS: Anion Gap 12 (5-15)
--- NOTE | 2018-03-05 15:27 | PCM.HP.STD ---
Problem List (1) Encephalopathy acute Status: Acute (2) HLD (hyperlipidemia) Status: Chronic Qualifiers: Hyperlipidemia type: unspecified Qualified Code(s): E78.5 - Hyperlipidemia, unspecified (3) Tobacco use Status: Chronic (4) Obesity (BMI 30-39.9) Status: Chronic (5) Chronic low back pain Status: Chronic Qualifiers: Back pain laterality: unspecified Sciatica presence: unspecified whether sciatica present Qualified Code(s): M54.5 - Low back pain; G89.29 - Other chronic pain (6) COPD (chronic obstructive pulmonary disease) Status: Chronic Qualifiers: COPD type: unspecified COPD Qualified Code(s): J44.9 - Chronic obstructive pulmonary disease, unspecified (7) Hypertension Status: Chronic Qualifiers: Hypertension type: essential hypertension Qualified Code(s): I10 - Essential (primary) hypertension (8) Cervical cancer Status: Chronic Qualifiers: Malignant neoplasm of cervix location: unspecified location Qualified Code(s): C53.9 - Malignant neoplasm of cervix uteri, unspecified History of Present Illness Date of Admission: 03/05/18 Chief Complaint: Confusion The patient is a 47 y/o F w/ PMHx: Obesity, Chronic Pain Syndrome, HTN, HLD, History of Prior Cholecystitis w/ ruptured gallbladder, Chronic COPD, Tobacco use, Anxiety and Depression, Hypothyroidism. Allergic Rhinitis, Diabetes mellitus type II who presents to the [facility] ED on 03/05/18 with history of onset increased confusion, lethargy and noted serial movements per finance and [id number] over the last 12-24 hours, similar in appearance to recent admission 01/29/18 with work-up at that time and neurology evaluation unremarkable and felt likely secondary to lyrica which was discontinued and she has not restarted. In the ED work-up includes T 97.7, HR 92, BP 151/99, RR 16, 98% on RA, CBC w/ WBC 14.2, Hgb 13.7, Plts 356 with L shift, CMP w/ BUN/Cr 23/1.59, glucose 348, pending UDS and UA per ED, CT head deferred per ED given recent admission w/ MRI Brain secondary to similar presentation w/ noted chronic ischemic changes and possible prior CVA with neurology recommendation at that time for continued asa therapy. Past Medical History Past Medical History (Chronic Problems): Chronic Problems (Last Reviewed 12/12/17 @ 16:04 by Ting Denis) HLD (hyperlipidemia) (Chronic) Tobacco use (Chronic) Obesity (BMI 30-39.9) (Chronic) Morbid obesity (Chronic) Chronic low back pain (Chronic) COPD (chronic obstructive pulmonary disease) (Chronic) Hypertension (Chronic) Cervical cancer (Chronic) Allergies codeine Allergy (Verified 03/05/18 14:00) Rash nabumetone [From Relafen] Allergy (Verified 03/05/18 14:00) Rash Sulfa (Sulfonamide Antibiotics) Allergy (Verified 03/05/18 14:00) Rash pregabalin [From Lyrica] Adverse Reaction (Verified 03/05/18 14:00) Other CONFUSION/DELIRIUM albuterol Adverse Reaction (Uncoded 03/05/18 14:00) Laryngospasms Home Medications: Ambulatory Orders Medication Instructions Recorded Cetirizine HCl [All Day Allergy] 10 mg PO DAILY 03/05/18 Cholecalciferol (Vitamin D3) 5,000 unit PO DAILY 03/05/18 [Vitamin D3] Duloxetine HCl 60 mg PO DAILY 03/05/18 Febuxostat [Uloric] 80 mg PO DAILY 03/05/18 Fentanyl 25 mcg TD DAILY PRN PRN 03/05/18 Fluticasone/Vilanterol [Breo 1 puff IH DAILY 03/05/18 Ellipta 200-25 Mcg INH] Furosemide [Lasix] 20 mg PO DAILY 03/05/18 Hydroxyzine HCl 25 mg PO Q8H PRN PRN 03/05/18 Irbesartan [Avapro] 75 mg PO QHS 03/05/18 Levothyroxine [Synthroid] 88 mcg PO DAILY 03/05/18 Linagliptin [Tradjenta] 5 mg PO DAILY 03/05/18 Metformin HCl [Glucophage] 1,000 mg PO BIDCM 03/05/18 Metoprolol Succinate [Toprol Xl] 100 mg PO DAILY 03/05/18 Montelukast Sodium [Singulair] 10 mg PO DAILY 03/05/18 Omeprazole [Prilosec] 20 mg PO DAILY 03/05/18 Oxycodone HCl/Acetaminophen 7.5 - 325 each PO Q8H PRN PRN 03/05/18 [Percocet 7.5-325 mg Tablet] Potassium Citrate [Potassium 15 meq PO DAILY 03/05/18 Citrate ER] Pregabalin [Lyrica] 200 mg PO BID 03/05/18 Tizanidine HCl [Zanaflex] 4 mg PO BID 03/05/18 Surgical History: - - Carpal tunnel release, ?2, cholecystectomy. 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 Tobacco Use: Cigarettes Alcohol: None Drugs: None - *Family History Maternal History Items: Diabetes Paternal History Items: No pertinent history Review of Systems Constitutional: Reports: Anorexia, Malaise, Weakness, Fatigue. Denies: Chills, Fever, Weight Change HEENT: Denies: Head Aches, Sinus Congestion, Sinus Drainage Cardiovascular: Denies: Chest Pain, Palpitations Respiratory: Denies: Cough, Shortness of breath at rest, Sputum production Gastrointestinal: Reports: Abdominal Pain. Denies: Nausea, Vomiting Genitourinary: Denies: Dysuria Musculoskeletal: Denies: Joint Pain, Joint Tenderness Skin: Denies: Rash, Wounds Neurological: Reports: Confusion. Denies: Focal weakness, Numbness, Tingling Psychiatric: Reports: Anxiety, Depression. Denies: Homicidal Ideations, Suicidal Ideations Hematologic/ Lymphatic: Denies: Easy Bruising, Easy Bleeding VTE Information - Inpt Only VTE Present on Admission: No VTE Mechan Device Prophylaxis: SCD's VTE Pharm Prophylaxis ordered?: Yes Subjective: Seated upright in the ED bed, fatigued appearance, odd to the right upper extremity movements. Objective: Physical Examination: General: awake, not alert, oriented to self, not to date, month, year, lethargic appearing, intermittently cooperative, seated upright in bed in no apparent distress. Skin: normal color, turgor, no icterus, cyanosis. HEENT: AT/NC, EOMI, PERRLA, dry MM, no carotid bruits or JVD noted. Lungs: Diminished BS BL, > bases, poor effort, no rales, ronchi or wheezing. Heart: Regular rate and rhythm; no gallop, rub audible. Abdomen: soft, obese, TTP RUQ region, ND, mildly hyperactive BS, difficult to assess HSM secondary to habitus and discomfort. Extremities: no cyanosis, clubbing, or edema. Neurological: patient awake, not markedly alert, lethargic, oriented as noted; cognitive function not baseline intact; pupils equally reactive to light and accomodation; cranial nerves II-XII grossly normal, moving all 4 extremities, ongoing repetitive movements of the right upper extremity, strength difficult to assess but moderately to severely globally decreased, unable to delineate any focal deficits, negative babinski. Psychiatric: affect appears flat, lethargic, no acute evidence of depressive or anxiety feelings. - Physical Exam Vital Signs Temp Pulse Resp BP Pulse Ox 97.7 F L 83 16 111/78 94 03/05/18 13:52 03/05/18 14:03 03/05/18 14:03 03/05/18 14:03 03/05/18 14:03 Oxygen Delivery Method Room Air Weight: 220 lb Body Mass Index (BMI) 36.6 Finger Stick Blood Glucose 366 Laboratory Tests Past 24 Hrs 03/05/18 03/05/18 14:20 14:20 WBC 14.2 H RBC 4.58 Hgb 13.7 Hct 40.0 MCV 87.3 MCH 29.9 MCHC 34.3 RDW 13.8 RDW Differential 44.0 H Plt Count 356 MPV 9.8 Immature Gran % (Auto) 0.200 Neut % (Auto) 80.8 H Lymph % (Auto) 15.2 L [place] % (Auto) 3.5 Eos % (Auto) 0.2 Baso % (Auto) 0.1 Absolute Neuts (auto) 11.5 H Absolute Lymphs (auto) 2.17 Total Counted Not Reportable Sodium 137 Potassium 4.6 Chloride 104 Carbon Dioxide 21.0 Anion Gap 12 BUN 23 H Creatinine 1.59 H Estim Creat Clear Calc 38.94 Est GFR (MDRD) Af Amer 44 L Est GFR (MDRD) Non-Af 37 L BUN/Creatinine Ratio 14.5 Glucose 348 H Calcium 9.5 Total Bilirubin 0.40 Direct Bilirubin 0.15 AST 31 ALT 37 Alkaline Phosphatase 90 Total Protein 8.3 H Albumin 4.1 Globulin 4.2 POC Glucose 03/05/18 14:08 POC Glucose 366 H Assessment/Plan The patient is a 47 y/o F w/ PMHx: Obesity, Chronic Pain Syndrome, HTN, HLD, History of Prior Cholecystitis w/ ruptured gallbladder, Chronic COPD, Tobacco use, Anxiety and Depression, Hypothyroidism. Allergic Rhinitis, Diabetes mellitus type II who presents to the [facility] ED on 03/05/18 with history of onset increased confusion, lethargy and noted serial movements per finance and [id number] over the last 12-24 hours, similar in appearance to recent admission 01/29/18 with work-up at that time and neurology evaluation unremarkable and felt likely secondary to lyrica which was discontinued and she has not restarted. (1) Acute Encephalopathy, Unclear Etiology: Recent admission w/ Neurology evaluation, MRI and ECHO. Given severity of appearance and recurrence will admit to PCU, will obtain repeat MRI Brain, MRA Head and Neck, defer ECHO as already recently performed, PT/OT/Speech/Nutrition, consult Neurology for evaluation, allow permissive HTN until MRI performed given unclear etiology and prior abnormal appearing MRI w/ chronic ischemic change and possible prior old CVA, maintain on asa, add plavix until MRI resulted given unclear etiology and possible prior CVA on recent MRI, add statin w/ AM FLP, fall precautions. Mag, TSH pending. EEG requested. ABG requested. Pending UA, UDS. Ammonia pending. (2) Acute kidney injury: Unclear etiology, possible poor intake secondary to confusion and medications concurrently. Admission BUN/Cr 23/1.59, prior baseline creatinine noted to be 0.7. Will continue to hydrate, hold nephrotoxic medications and repeat chemistry in AM. Will obtain FeNa assessment. (3) Chronic Leukocytosis: Noted routine leukocytosis, unclear specific etiology, admission CBC w/ WBC 14.2, appears baseline, does have mild abdominal RUQ pain with palpation, history of GB rupture and cholecystitis, will obtain abdominal US, repeat CBC in AM, UA pending, obtain CXR. (4) Chronic COPD: ATC duonebs, PRN albuterol, HOB, IS parameters, ABG pending as noted above. (5) Tobacco Abuse: Encouraged cessation, inpatient consultation per RT, NR if desired. (6) Diabetes mellitus type II: Hold oral home regimen, ADA diet if passes swallow evaluation per RN, accu checks w/ ISS, HgbA1c pending. (7) Hypothyroidism: Continue home synthroid regimen, TSH pending. (8) Obesity: Weight loss and lifestyle changes encouraged, nutrition consulted. (9) Anxiety and Depression: Maintain on home duloxetine regimen. (10) Chronic Pain Syndrome: Patient per record on as needed agents only, hold given mental status changes and restart once appropriate to avoid withdrawal. (11) GERD: PPI. (12) DVT prophylaxis: SCDs, heparin. Code Visit Inpatient E&M: 36689 Init Hosp L3
--- NOTE | 2018-03-05 15:31 | ED.VISSUMM ---
- ER Visit Summary Date of Service: 03/05/18 Chief Complaint: Confusion and decreased mental status History of Present Illness: The patient is a 47 F past medical history of insulin-dependent diabetes and chronic back pain. Patient was admitted approximately 1 month ago secondary to confusion and mental status change. At that time had an extensive workup which was negative including CT of the brain, MRI and neurology consultation. They felt it may be secondary to Lyrica but according to her soon-to-be [id number] is in the room she has been off the Lyrica since that time. She denies any falls, head injury or fever. Physical Examination: Middle-aged female no acute distress. Vital signs are stable afebrile. She does not look septic or toxic. She does seem to be confused. No smell of alcohol. H EENT exam unremarkable. Multiple piercings. No trauma to the face or scalp. Neck nontender no meningismus. No lymphadenopathy. Lungs clear to auscultation bilaterally. Heart regular rhythm no murmur. Abdomen soft and nontender. Moving all 4 extremities. Neurologically she is confused. She thinks it is Monday not Monday. She does not answer the month or year. She does follow commands. No facial droop. Test Results: CBC shows a white count of 14.2 however she has had elevated white counts between 12 and 25 of the last year. Normal H&H. Electrolytes are unremarkable she does have an elevated blood sugar of 348. BUN 23 creatinine 1.59. Which is a change in the most recent creatinine but she has had higher in the past. She had a prior CT and MRI chose not to repeat those at this time. Urinalysis and tox screen are pending. Her last eye screen was negative. Emergency Department Course and Treatment: Repeat exam at 1527 is unchanged. I spoke to her soon-to-be [id number] and explained her she would be admitted for further evaluation and workup. I spoke to Dr. Hernandez the hospitalist who is going to admit the patient. Treatment Plan: [] Disposition: Admission Impression: Acute mental status change with confusion of uncertain etiology Hyperglycemia with a history of insulin-dependent diabetes Acute renal injury with elevated creatinine This note was generated with [employer] dictation software. It may contain incorrect words, spelling, and punctuation that were not noted in review of the chart prior to signing ED Disposition - Plan for ED Patient: Chief Complaint: Confusion Referrals: Aron Palumbo MD [Primary Care Provider] -
--- NOTE | 2018-03-05 15:36 | ED.DCSUM_ITS ---
- ER Visit Summary Date of Service: 03/05/18 Chief Complaint: Confusion and decreased mental status History of Present Illness: The patient is a 47 F past medical history of insulin-dependent diabetes and chronic back pain. Patient was admitted approximately 1 month ago secondary to confusion and mental status change. At that time had an extensive workup which was negative including CT of the brain, MRI and neurology consultation. They felt it may be secondary to Lyrica but according to her soon-to-be [id number] is in the room she has been off the Lyrica since that time. She denies any falls, head injury or fever. Physical Examination: Middle-aged female no acute distress. Vital signs are stable afebrile. She does not look septic or toxic. She does seem to be confused. No smell of alcohol. H EENT exam unremarkable. Multiple piercings. No trauma to the face or scalp. Neck nontender no meningismus. No lymphadenopathy. Lungs clear to auscultation bilaterally. Heart regular rhythm no murmur. Abdomen soft and nontender. Moving all 4 extremities. Neurologically she is confused. She thinks it is Monday not Monday. She does not answer the month or year. She does follow commands. No facial droop. Test Results: CBC shows a white count of 14.2 however she has had elevated white counts between 12 and 25 of the last year. Normal H&H. Electrolytes are unremarkable she does have an elevated blood sugar of 348. BUN 23 creatinine 1.59. Which is a change in the most recent creatinine but she has had higher in the past. She had a prior CT and MRI chose not to repeat those at this time. Urinalysis and tox screen are pending. Her last eye screen was negative. Emergency Department Course and Treatment: Repeat exam at 1527 is unchanged. I spoke to her soon-to-be [id number] and explained her she would be admitted for further evaluation and workup. I spoke to Dr. Hernandez the hospitalist who is going to admit the patient. Treatment Plan: [] Disposition: Admission Impression: Acute mental status change with confusion of uncertain etiology Hyperglycemia with a history of insulin-dependent diabetes Acute renal injury with elevated creatinine This note was generated with [employer] dictation software. It may contain incorrect words, spelling, and punctuation that were not noted in review of the chart prior to signing ED Disposition - Plan for ED Patient: Chief Complaint: Confusion Referrals: Aron Palumbo MD [Primary Care Provider] -
--- NOTE | 2018-03-05 15:37 | HP.PCM_ITS ---
Problem List (1) Encephalopathy acute Status: Acute (2) HLD (hyperlipidemia) Status: Chronic Qualifiers: Hyperlipidemia type: unspecified Qualified Code(s): E78.5 - Hyperlipidemia , unspecified (3) Tobacco use Status: Chronic (4) Obesity (BMI 30-39.9) Status: Chronic (5) Chronic low back pain Status: Chronic Qualifiers: Back pain laterality: unspecified Sciatica presence: unspecified whether sciatica present Qualified Code(s): M54.5 - Low back pain; G89.29 - Other chronic pain (6) COPD (chronic obstructive pulmonary disease) Status: Chronic Qualifiers: COPD type: unspecified COPD Qualified Code(s): J44.9 - Chronic obstructive pulmonary disease, unspecified (7) Hypertension Status: Chronic Qualifiers: Hypertension type: essential hypertension Qualified Code(s): I10 - Essential (primary) hypertension (8) Cervical cancer Status: Chronic Qualifiers: Malignant neoplasm of cervix location: unspecified location Qualified Code( s): C53.9 - Malignant neoplasm of cervix uteri, unspecified History of Present Illness Date of Admission: 03/05/18 Chief Complaint: Confusion The patient is a 47 y/o F w/ PMHx: Obesity, Chronic Pain Syndrome, HTN, HLD, History of Prior Cholecystitis w/ ruptured gallbladder, Chronic COPD, Tobacco use, Anxiety and Depression, Hypothyroidism. Allergic Rhinitis, Diabetes mellitus type II who presents to the [facility] ED on 03/05/18 with history of onset increased confusion, lethargy and noted serial movements per finance and mother- in-law over the last 12-24 hours, similar in appearance to recent admission 01/29 with work-up at that time and neurology evaluation unremarkable and felt likely secondary to lyrica which was discontinued and she has not restarted. In the ED work-up includes T 97.7, HR 92, BP 151/99, RR 16, 98% on RA, CBC w/ WBC 14.2, Hgb 13.7, Plts 356 with L shift, CMP w/ BUN/Cr 23/1.59, glucose 348, pending UDS and UA per ED, CT head deferred per ED given recent admission w/ MRI Brain secondary to similar presentation w/ noted chronic ischemic changes and possible prior CVA with neurology recommendation at that time for continued asa therapy. Past Medical History Past Medical History (Chronic Problems): Chronic Problems (Last Reviewed 12/12/17 @ 16:04 by Ting Denis) HLD (hyperlipidemia) (Chronic) Tobacco use (Chronic) Obesity (BMI 30-39.9) (Chronic) Morbid obesity (Chronic) Chronic low back pain (Chronic) COPD (chronic obstructive pulmonary disease) (Chronic) Hypertension (Chronic) Cervical cancer (Chronic) Allergies codeine Allergy (Verified 03/05/18 14:00) Rash nabumetone [From Relafen] Allergy (Verified 03/05/18 14:00) Rash Sulfa (Sulfonamide Antibiotics) Allergy (Verified 03/05/18 14:00) Rash pregabalin [From Lyrica] Adverse Reaction (Verified 03/05/18 14:00) Other CONFUSION/DELIRIUM albuterol Adverse Reaction (Uncoded 03/05/18 14:00) Laryngospasms Home Medications: Ambulatory Orders Medication Instructions Recorded Cetirizine HCl [All Day Allergy] 10 mg PO DAILY 03/05/18 Cholecalciferol (Vitamin D3) 5,000 unit PO DAILY 03/05/18 [Vitamin D3] Duloxetine HCl 60 mg PO DAILY 03/05/18 Febuxostat [Uloric] 80 mg PO DAILY 03/05/18 Fentanyl 25 mcg TD DAILY PRN PRN 03/05/18 Fluticasone/Vilanterol [Breo 1 puff IH DAILY 03/05/18 Ellipta 200-25 Mcg INH] Furosemide [Lasix] 20 mg PO DAILY 03/05/18 Hydroxyzine HCl 25 mg PO Q8H PRN PRN 03/05/18 Irbesartan [Avapro] 75 mg PO QHS 03/05/18 Levothyroxine [Synthroid] 88 mcg PO DAILY 03/05/18 Linagliptin [Tradjenta] 5 mg PO DAILY 03/05/18 Metformin HCl [Glucophage] 1,000 mg PO BIDCM 03/05/18 Metoprolol Succinate [Toprol Xl] 100 mg PO DAILY 03/05/18 Montelukast Sodium [Singulair] 10 mg PO DAILY 03/05/18 Omeprazole [Prilosec] 20 mg PO DAILY 03/05/18 Oxycodone HCl/Acetaminophen 7.5 - 325 each PO Q8H PRN PRN 03/05/18 [Percocet 7.5-325 mg Tablet] Potassium Citrate [Potassium 15 meq PO DAILY 03/05/18 Citrate ER] Pregabalin [Lyrica] 200 mg PO BID 03/05/18 Tizanidine HCl [Zanaflex] 4 mg PO BID 03/05/18 Surgical History: - - Carpal tunnel release, ?2, cholecystectomy. Psychiatric History: Anxiety, Depression [employer] History: cervical cancer Lives: Spouse/ Significant Other Smoking Status: Current every day smoker - 1 pack per day tobacco use. Tobacco Use: Cigarettes Alcohol: None Drugs: None - *Family History Maternal History Items: Diabetes Paternal History Items: No pertinent history Review of Systems Constitutional: Reports: Anorexia, Malaise, Weakness, Fatigue. Denies: Chills, Fever, Weight Change HEENT: Denies: Head Aches, Sinus Congestion, Sinus Drainage Cardiovascular: Denies: Chest Pain, Palpitations Respiratory: Denies: Cough, Shortness of breath at rest, Sputum production Gastrointestinal: Reports: Abdominal Pain. Denies: Nausea, Vomiting Genitourinary: Denies: Dysuria Musculoskeletal: Denies: Joint Pain, Joint Tenderness Skin: Denies: Rash, Wounds Neurological: Reports: Confusion. Denies: Focal weakness, Numbness, Tingling Psychiatric: Reports: Anxiety, Depression. Denies: Homicidal Ideations, Suicidal Ideations Hematologic/ Lymphatic: Denies: Easy Bruising, Easy Bleeding VTE Information - Inpt Only VTE Present on Admission: No VTE Mechan Device Prophylaxis: SCD's VTE Pharm Prophylaxis ordered?: Yes Subjective: Seated upright in the ED bed, fatigued appearance, odd to the right upper extremity movements. Objective: Physical Examination: General: awake, not alert, oriented to self, not to date, month, year, lethargic appearing, intermittently cooperative, seated upright in bed in no apparent distress. Skin: normal color, turgor, no icterus, cyanosis. HEENT: AT/NC, EOMI, PERRLA, dry MM, no carotid bruits or JVD noted. Lungs: Diminished BS BL, > bases, poor effort, no rales, ronchi or wheezing. Heart: Regular rate and rhythm; no gallop, rub audible. Abdomen: soft, obese, TTP RUQ region, ND, mildly hyperactive BS, difficult to assess HSM secondary to habitus and discomfort. Extremities: no cyanosis, clubbing, or edema. Neurological: patient awake, not markedly alert, lethargic, oriented as noted; cognitive function not baseline intact; pupils equally reactive to light and accomodation; cranial nerves II-XII grossly normal, moving all 4 extremities, ongoing repetitive movements of the right upper extremity, strength difficult to assess but moderately to severely globally decreased, unable to delineate any focal deficits, negative babinski. Psychiatric: affect appears flat, lethargic, no acute evidence of depressive or anxiety feelings. - Physical Exam Vital Signs Temp Pulse Resp BP Pulse Ox 97.7 F L 83 16 111/78 94 03/05/18 13:52 03/05/18 14:03 03/05/18 14:03 03/05/18 14:03 03/05/18 14:03 Oxygen Delivery Method Room Air Weight: 220 lb Body Mass Index (BMI) 36.6 Finger Stick Blood Glucose 366 Laboratory Tests Past 24 Hrs 03/05/18 03/05/18 14:20 14:20 WBC 14.2 H RBC 4.58 Hgb 13.7 Hct 40.0 MCV 87.3 MCH 29.9 MCHC 34.3 RDW 13.8 RDW Differential 44.0 H Plt Count 356 MPV 9.8 Immature Gran % (Auto) 0.200 Neut % (Auto) 80.8 H Lymph % (Auto) 15.2 L [place] % (Auto) 3.5 Eos % (Auto) 0.2 Baso % (Auto) 0.1 Absolute Neuts (auto) 11.5 H Absolute Lymphs (auto) 2.17 Total Counted Not Reportable Sodium 137 Potassium 4.6 Chloride 104 Carbon Dioxide 21.0 Anion Gap 12 BUN 23 H Creatinine 1.59 H Estim Creat Clear Calc 38.94 Est GFR (MDRD) Af Amer 44 L Est GFR (MDRD) Non-Af 37 L BUN/Creatinine Ratio 14.5 Glucose 348 H Calcium 9.5 Total Bilirubin 0.40 Direct Bilirubin 0.15 AST 31 ALT 37 Alkaline Phosphatase 90 Total Protein 8.3 H Albumin 4.1 Globulin 4.2 POC Glucose 03/05/18 14:08 POC Glucose 366 H Assessment/Plan The patient is a 47 y/o F w/ PMHx: Obesity, Chronic Pain Syndrome, HTN, HLD, History of Prior Cholecystitis w/ ruptured gallbladder, Chronic COPD, Tobacco use, Anxiety and Depression, Hypothyroidism. Allergic Rhinitis, Diabetes mellitus type II who presents to the [facility] ED on 03/05/18 with history of onset increased confusion, lethargy and noted serial movements per finance and mother- in-law over the last 12-24 hours, similar in appearance to recent admission 01/29 with work-up at that time and neurology evaluation unremarkable and felt likely secondary to lyrica which was discontinued and she has not restarted. (1) Acute Encephalopathy, Unclear Etiology: Recent admission w/ Neurology evaluation, MRI and ECHO. Given severity of appearance and recurrence will admit to PCU, will obtain repeat MRI Brain, MRA Head and Neck, defer ECHO as already recently performed, PT/OT/Speech/Nutrition, consult Neurology for evaluation, allow permissive HTN until MRI performed given unclear etiology and prior abnormal appearing MRI w/ chronic ischemic change and possible prior old CVA, maintain on asa, add plavix until MRI resulted given unclear etiology and possible prior CVA on recent MRI, add statin w/ AM FLP, fall precautions. Mag, TSH pending. EEG requested. ABG requested. Pending UA, UDS. Ammonia pending. (2) Acute kidney injury: Unclear etiology, possible poor intake secondary to confusion and medications concurrently. Admission BUN/Cr 23/1.59, prior baseline creatinine noted to be 0.7. Will continue to hydrate, hold nephrotoxic medications and repeat chemistry in AM. Will obtain FeNa assessment. (3) Chronic Leukocytosis: Noted routine leukocytosis, unclear specific etiology , admission CBC w/ WBC 14.2, appears baseline, does have mild abdominal RUQ pain with palpation, history of GB rupture and cholecystitis, will obtain abdominal US, repeat CBC in AM, UA pending, obtain CXR. (4) Chronic COPD: ATC duonebs, PRN albuterol, HOB, IS parameters, ABG pending as noted above. (5) Tobacco Abuse: Encouraged cessation, inpatient consultation per RT, NR if desired. (6) Diabetes mellitus type II: Hold oral home regimen, ADA diet if passes swallow evaluation per RN, accu checks w/ ISS, HgbA1c pending. (7) Hypothyroidism: Continue home synthroid regimen, TSH pending. (8) Obesity: Weight loss and lifestyle changes encouraged, nutrition consulted. (9) Anxiety and Depression: Maintain on home duloxetine regimen. (10) Chronic Pain Syndrome: Patient per record on as needed agents only, hold given mental status changes and restart once appropriate to avoid withdrawal. (11) GERD: PPI. (12) DVT prophylaxis: SCDs, heparin. Code Visit Inpatient E&M: 69929 Init Hosp L3
--- NOTE | 2018-03-05 16:28 | US_ITS ---
STUDY: ABDOMINAL ULTRASOUND - RIGHT UPPER QUADRANT REASON FOR VISIT: Female, 47 years old. Right upper quadrant pain TECHNIQUE: Transverse and longitudinal imaging of the right upper quadrant was performed using real-time ultrasound. COMPARISON: CT abdomen and pelvis dated December 13, 2017 FINDINGS: Liver: The liver measures at least 23 cm. There is increased echogenicity of the liver. The direction of portal flow is hepatopetal. There is no demonstrated mass in the liver. Gallbladder: The patient has had prior cholecystectomy. Common Bile Duct (C.B.D.): The common bile duct measures 7.7 mm. Pancreas: The visualized pancreas is within normal limits. There is no demonstrated mass in the pancreas. Right Kidney: The right kidney measures 13.8 cm. The right cortex measures 1.3 cm. There is no demonstrated mass in the right kidney. There is no dilatation of the collecting system. There is no demonstrated free fluid. US/Liver IMPRESSION: The liver is markedly enlarged with fatty infiltration. There is no ascites. There are no acute abnormalities. Electronically Signed: Wilma Perez MD at 21:27 EDT Tel Direct: [phone], Service support ,
[2018-03-05 17:25] LABS: Bedside Glucose 311 mg/dL (70-110)
--- NOTE | 2018-03-05 17:38 | CPS ---
ABG attempts x2 unsuccessful. Dr. Hernandez made aware. Okay to try again later. Albuterol allergy - reaction needs verified by family prior to aerosol start. RT to call Dr. Hernandez once reaction known.
[2018-03-05 17:42] LABS: Hemoglobin A1c 8.3 % (4.2-6.3)
[2018-03-05] MEDS: 0.9% Normal Saline 1,000 ML 999 ML IV (17:49)
[2018-03-05] MEDS: 0.9% NaCl Peripheral Flush Adult/Peds IV (17:54)
[2018-03-05 17:57] LABS: Lipase 154 U/L (73-393); Thyroid Stim Hormone (TSH) 2.48 uIU/mL (0.358-3.74)
[2018-03-05] MEDS: 0.9% Normal Saline 1,000 ML 125 ML IV (19:05)
[2018-03-05] MEDS: Ipratropium 0.5 MG/2.5 ML SOLUTION INHALATION (19:44)
[2018-03-05] MEDS: Atorvastatin Calcium 80 MG Tablet PO (22:56)
[2018-03-05] MEDS: Heparin Injection (Vial) 5,000 UNIT/ML VIAL 5000 UNIT SC (22:57)
[2018-03-05 23:20] LABS: Bedside Glucose 249 mg/dL (70-110)
[2018-03-05] MEDS: Insulin Lispro 100 UNIT/ML INSULN.PEN SC (23:48)
[2018-03-06] VITALS (11 sets, daily range): BP systolic 109–145; BP diastolic 71–82; PULSE 73–89; RESP 16–20; TEMP 36.2–36.9; O2SAT 95–96; BMI 39.0
[2018-03-06] MEDS: Ipratropium 0.5 MG/2.5 ML SOLUTION INHALATION ×3 (00:51→15:20)
[2018-03-06 05:39] LABS: Absolute Lymphocyte Count 4.88 X10^3/ul (0.83-4.51); Absolute Neutrophil Count 7.5 X10^3/uL (2.0-7.7); Basophil# 0.04 X10^3/uL; Basophil% 0.3 % (0-1); Eosinophil# 0.14 X10^3/uL; Hematocrit 35.6 % (37-47); Hemoglobin 12.2 g/dl (12.0-15.0); Lymphocyte # 4.88 X10^3/ul (4.0); Lymphocyte % 36.4 % (19-41); Mean Corp Hgb Conc 34.3 g/gl (32-36); Mean Corpuscular Hgb 30.1 pg (27.0-32.0); Mean Corpuscular Volume 87.9 fL (81-99); Mean Platelet Vol. 9.7 fl (6.2-12.0); Monocyte# 0.82 X10^3/uL; Monocyte% 6.1 % (0-10); Neutrophil % 56.1 % (47-70); POSITIVE COUNT NO; POSITIVE DIFFERENTIAL NO; POSITIVE MORPHOLOGY NO; Platelet Count 327 K/mm3 (150-450); RBC Distribution Width CV 13.9 % (11.6-14.6); RBC Distribution Width SD 44.7 fl (35.1-43.9); Red Blood Count 4.05 M/mm3 (4.2-5.4); White Blood Count 13.4 K/mm3 (4.4-11.0)
[2018-03-06 06:04] LABS: Cholesterol 155 mg/dL (200); High Density Lipoprotein 29 mg/dL; Triglycerides 345 mg/dL; Very Low Density Lipoprotein 69 mg/dL (5-40)
[2018-03-06] MEDS: Levothyroxine 88 MCG Tablet PO (06:24)
[2018-03-06] MEDS: 0.9% Normal Saline 1,000 ML 125 ML IV ×2 (06:24→15:45)
[2018-03-06] MEDS: Heparin Injection (Vial) 5,000 UNIT/ML VIAL 5000 UNIT SC ×2 (06:24→14:37)
[2018-03-06 07:03] LABS: Bacteria 0 SEEN /hpf (None Seen); Mucous, Urine 0 SEEN /hpf (<or=2+); Red Blood Cells-Urine 0 SEEN /hpf (0-5)
[2018-03-06 07:05] LABS: Bedside Glucose 226 mg/dL (70-110)
[2018-03-06 07:11] LABS: Color, Urine Yellow (Yellow); Glucose, Dipstick Normal (Normal); Ketone-Dipstick Negative (Negative); Leukocyte Esterase-Dipstick Negative /ul (Negative); Nitrite-Dipstick Negative (Negative); Occult Blood-Urine Negative /ul (Negative); Protein-Dipstick 15 mg/dl (Negative); Urine Bilirubin Dipstick Negative (Negative); Urine Clarity Clear (Clear); Urine Urobilinogen Normal (Normal)
[2018-03-06 07:19] LABS: Squamous Epithelial Cells - UA 0-5 SEEN /hpf (5-10); White Blood Cells 0-5 SEEN /hpf (0-5)
[2018-03-06 07:38] LABS: Urine Sodium 138 mmol/L (Not Establ.)
[2018-03-06] MEDS: Aspirin 81 MG TAB.CHEW PO (07:55)
[2018-03-06 07:57] LABS: Amphetamine Urine VISTA NEGATIVE (<1000 ng/mL); Barbiturate Urine VISTA NEGATIVE (< 200 ng/mL); Benzodiazepine Urine VISTA NEGATIVE (< 200 ng/mL); Cocaine Urine VISTA NEGATIVE (< 300 ng/mL); Ecstacy Urine VISTA NEGATIVE (< 500 ng/mL); Methadone Urine VISTA NEGATIVE (< 300 ng/mL); PCP Urine VISTA NEGATIVE (< 25 ng/mL); THC Urine VISTA POSITIVE (< 50 ng/mL); Vista UDS pH Range 5
[2018-03-06] MEDS: Insulin Lispro 100 UNIT/ML INSULN.PEN SC ×3 (07:59→17:05)
[2018-03-06] MEDS: DULoxetine Hcl 60 MG Capsule PO (09:57)
[2018-03-06] MEDS: Pantoprazole Sodium 20 MG Tablet PO (09:58)
[2018-03-06] MEDS: Febuxostat 40 MG TABLET 80 MG PO (09:58)
[2018-03-06] MEDS: LORazepam 2 MG/ML Syringe 0.5 MG IV (11:50)
[2018-03-06 12:05] LABS: Bedside Glucose 295 mg/dL (70-110)
--- NOTE | 2018-03-06 12:37 | CASEMGMT ---
Face to Face with patient for initial transition planning/care coordination assessment. RN ELENA introduced self and role at [facility], pt voices understanding and consents to assessment at this time. Pt is lying in bed in no distress at this time. Pt is A/O x4 but has moments of confusion and answers most questions appropriately at this time. Care providers, pharmacy, and demographics verified. See attached link. Pt voices no further concerns/needs at this time. Advised pt to ask for CM if any further questions/concerns/needs arise, voices understanding. CM to follow for any further discharge planning/needs. PLAN: [place] [facility]
[2018-03-06 12:48] LABS: Anion Gap 9 (5-15); BUN 16 mg/dL (7-18); BUN/Creat Ratio 15.1 RATIO (10-20); Calcium,Total 8.3 mg/dL (8.5-10.1); Chloride 107 mmol/L (98-107); Creatinine, Serum 1.06 mg/dL (0.55-1.02); EST Glomerular Filtration Rate 59 mL/min (>60); Est Glom Filt Rate - Afr Amer 71 mL/min (>60); Glucose 274 mg/dL (74-106); Potassium 3.8 mmol/L (3.5-5.1); Sodium Level 137 mmol/L (136-145)
--- NOTE | 2018-03-06 14:24 | CT_ITS ---
STUDY: CT BRAIN WITHOUT CONTRAST REASON FOR EXAM: Female, 47 years old. Alteration of awareness RADIATION DOSAGE (If Supplied By Facility): CTDIvol = ( 44.99 ) mGy, DLP = ( 1490.98 ) mGycm TECHNIQUE: Transaxial CT imaging of the brain was performed without administration of intravenous contrast material. Individualized dose optimization techniques were used for this CT. COMPARISON: January 29, 2018 FINDINGS: The soft tissues are unremarkable. The osseous structures are unremarkable. Normal size ventricles and extra-axial spaces for the patient's age. The white matter tracts are unremarkable. The basal ganglia and thalami are unremarkable. No abnormalities are seen in the brainstem. The cerebellum is unremarkable. Incidentally noted is an empty sella. There is no intracranial hemorrhage. There are no findings of acute ischemia. The visualized sinuses are unremarkable. CT/Brain/Head without Contrast IMPRESSION: No acute intracranial abnormalities or changes. Electronically Signed: Wilma Perez MD at 16:30 EDT Tel Direct: [phone], Service support ,
--- NOTE | 2018-03-06 14:56 | PCM.CONS.GEN ---
Problem List (1) Encephalopathy acute Status: Acute Reason for Consult Date of Consultation: 03/06/18 Reason for Consultation: AMS History of Present Illness: The patient is a 47 year old CF with PMH HLD, DM, COPD, hypothyroidism, depression, chronic low back pain, morbid obesity admitted with AMS. Per patient she remembers waking up yesterday (03/05/18) then remembers her fiance telling her that he is taking her to the hospital, she does not remember being brought to the hospital, was admitted for confusion and AMS, found to have BS of 348 and KATLYN with creatinine of 1.59, per patient she started remembering things from last night and at present her encephalopathy has almost resolved, this time it was felt that her symptoms could have been medication induced due to Percocet and the same was discontinued by the hospitalist. She had admission due to similar symptoms about a month ago in January 2018, had normal CT head and MRI brain at that time, it was thought that her symptoms were medication induced due to Lyrica which was discontinued then. Patient has history of migraines and per patient is being treated by her PCP with Topamax, usually has HAs about 3-4 times a week, generalized, with photophobia, phonophobia, visual floaters and nausea, lasting hours. At present denies any SANTANA, visual disturbances, focal motor weakness or sensory loss. [] Past Medical History Past Medical History (Chronic Problems): Chronic Problems (Last Reviewed 12/12/17 @ 16:04 by Ting Denis) HLD (hyperlipidemia) (Chronic) Tobacco use (Chronic) Obesity (BMI 30-39.9) (Chronic) Morbid obesity (Chronic) Chronic low back pain (Chronic) COPD (chronic obstructive pulmonary disease) (Chronic) Hypertension (Chronic) Cervical cancer (Chronic) Allergies codeine Allergy (Verified 03/05/18 14:00) Rash nabumetone [From Relafen] Allergy (Verified 03/05/18 14:00) Rash Sulfa (Sulfonamide Antibiotics) Allergy (Verified 03/05/18 14:00) Rash pregabalin [From Lyrica] Adverse Reaction (Verified 03/05/18 17:25) confusion/delirium CONFUSION/DELIRIUM albuterol Adverse Reaction (Uncoded 03/05/18 14:00) Laryngospasms Home Medications: Ambulatory Orders Medication Instructions Recorded Aspirin E.C. [Ecotrin] 81 mg PO DAILY 03/05/18 Atorvastatin Calcium [Lipitor] 40 mg PO QHS 03/05/18 Cetirizine HCl [All Day Allergy] 10 mg PO DAILY 03/05/18 Cholecalciferol (Vitamin D3) 5,000 unit PO DAILY 03/05/18 [Vitamin D3] Duloxetine HCl 60 mg PO DAILY 03/05/18 Febuxostat [Uloric] 80 mg PO DAILY 03/05/18 Fentanyl 25 mcg TD Q72H 03/05/18 Fluticasone/Vilanterol [Breo 1 puff IH DAILY 03/05/18 Ellipta 200-25 Mcg INH] Furosemide [Lasix] 20 mg PO DAILY PRN 03/05/18 Hydroxyzine HCl 25 mg PO Q8H PRN PRN 03/05/18 Irbesartan [Avapro] 75 mg PO QHS 03/05/18 Levothyroxine [Synthroid] 88 mcg PO DAILY 03/05/18 Lidocaine [Lidoderm Patch] 1 patch TOPICAL DAILY 03/05/18 Melatonin [Melatonin] 1 mg PO 1700,2100 03/05/18 Metformin HCl [Glucophage] 1,000 mg PO BIDCM 03/05/18 Montelukast Sodium [Singulair] 10 mg PO DAILY 03/05/18 Omeprazole [Prilosec] 20 mg PO DAILY 03/05/18 Oxycodone HCl/Acetaminophen 7.5 - 325 each PO Q8H PRN PRN 03/05/18 [Percocet 7.5-325 mg Tablet] Potassium Citrate [Potassium 15 meq PO DAILY PRN 03/05/18 Citrate ER] Sodium Chloride [Saline Nasal 1 spray NS Q2H PRN 03/05/18 [place]] Surgical History: - - Carpal tunnel release, ?2, cholecystectomy. 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 Lives: Spouse/ Significant Other Smoking Status: Current every day smoker Tobacco Use: Cigarettes Alcohol: None Drugs: None - *Family History Maternal History Items: Diabetes Paternal History Items: No pertinent history Review of Systems Constitutional: Reports: - - complete ROS negative except as documented in HPI - Physical Exam General: Alert, Cooperative, No apparent distress HEENT: Normocephalic Neck: Supple Lungs: Clear to auscultation Cardiovascular: Regular rate Abdomen: Bowel Sounds Present Extremities: No cyanosis Skin: No rashes Musculoskeletal: No Tenderness to Palpation of Joints or Extremities Neurological: - - consious, awake, AoA x2 (only has some mild confusion with date/time), CN 2-12 grossly intact, Power 5/5 all 4 extremities, no sensory loss, no cerebellar signs, Reflexes + B/L B/S/T/K/A, gait deferred Vital Signs Temp Pulse Resp BP Pulse Ox 97.1 F L 78 18 145/82 H 96 03/06/18 11:50 03/06/18 11:50 03/06/18 11:50 03/06/18 11:50 03/06/18 11:50 Oxygen Delivery Method Room Air Weight: 106.5 kg Body Mass Index (BMI) 39.0 Intake and Output for Last 24 Hours 03/04/18 03/05/18 03/06/18 23:59 23:59 23:59 Intake Total 1359 / 1359 2226 / 2226 Output Total 700 / 700 Balance 1359 / 1359 1526 / 1526 Laboratory Tests Past 24 Hrs 03/05/18 03/05/18 03/05/18 17:06 17:06 17:06 WBC RBC Hgb Hct MCV MCH MCHC RDW RDW Differential Plt Count MPV Immature Gran % (Auto) Neut % (Auto) Lymph % (Auto) [place] % (Auto) Eos % (Auto) Baso % (Auto) Absolute Neuts (auto) Absolute Lymphs (auto) Total Counted Sodium Potassium Chloride Carbon Dioxide Anion Gap BUN Creatinine Estim Creat Clear Calc Est GFR (MDRD) Af Amer Est GFR (MDRD) Non-Af BUN/Creatinine Ratio Glucose Hemoglobin A1c 8.3 H Calcium Magnesium 2.0 Ammonia 22.0 Triglycerides Cholesterol LDL Cholesterol VLDL Cholesterol HDL Cholesterol Lipase 154 TSH 2.48 Urine Color Urine Clarity Urine pH Ur Specific [place] Urine Protein Urine Glucose (UA) Urine Ketones Urine Occult Blood Urine Nitrite Urine Bilirubin Urine Urobilinogen Ur Leukocyte Esterase Urine RBC Urine WBC Ur Squamous Epith Cells Urine Bacteria Urine Mucus Ur Random Sodium Urine Creatinine Urine Opiates Screen Urine Methadone Screen Ur Barbiturates Screen Ur Phencyclidine Scrn Ur Amphetamines Screen U Methamphetamin-MDMA U Benzodiazepines Scrn Urine Cocaine Screen U Cannabinoids Screen Ur Drug Screen Comment 03/06/18 03/06/18 03/06/18 05:20 05:20 06:30 WBC 13.4 H RBC 4.05 L Hgb 12.2 Hct 35.6 L MCV 87.9 MCH 30.1 MCHC 34.3 RDW 13.9 RDW Differential 44.7 H Plt Count 327 MPV 9.7 Immature Gran % (Auto) 0.100 Neut % (Auto) 56.1 Lymph % (Auto) 36.4 [place] % (Auto) 6.1 Eos % (Auto) 1.0 Baso % (Auto) 0.3 Absolute Neuts (auto) 7.5 Absolute Lymphs (auto) 4.88 H Total Counted Not Reportable Sodium Potassium Chloride Carbon Dioxide Anion Gap BUN Creatinine Estim Creat Clear Calc Est GFR (MDRD) Af Amer Est GFR (MDRD) Non-Af BUN/Creatinine Ratio Glucose Hemoglobin A1c Calcium Magnesium Ammonia Triglycerides 345 H Cholesterol 155 LDL Cholesterol 57 VLDL Cholesterol 69 H HDL Cholesterol 29 L Lipase TSH Urine Color Urine Clarity Urine pH Ur Specific [place] Urine Protein Urine Glucose (UA) Urine Ketones Urine Occult Blood Urine Nitrite Urine Bilirubin Urine Urobilinogen Ur Leukocyte Esterase Urine RBC Urine WBC Ur Squamous Epith Cells Urine Bacteria Urine Mucus Ur Random Sodium Urine Creatinine Urine Opiates Screen NEGATIVE Urine Methadone Screen NEGATIVE Ur Barbiturates Screen NEGATIVE Ur Phencyclidine Scrn NEGATIVE Ur Amphetamines Screen NEGATIVE U Methamphetamin-MDMA NEGATIVE U Benzodiazepines Scrn NEGATIVE Urine Cocaine Screen NEGATIVE U Cannabinoids Screen POSITIVE H Ur Drug Screen Comment 03/06/1818 03/06/18 06:30 06:30 06:30 WBC RBC Hgb Hct MCV MCH MCHC RDW RDW Differential Plt Count MPV Immature Gran % (Auto) Neut % (Auto) Lymph % (Auto) [place] % (Auto) Eos % (Auto) Baso % (Auto) Absolute Neuts (auto) Absolute Lymphs (auto) Total Counted Sodium Potassium Chloride Carbon Dioxide Anion Gap BUN Creatinine Estim Creat Clear Calc Est GFR (MDRD) Af Amer Est GFR (MDRD) Non-Af BUN/Creatinine Ratio Glucose Hemoglobin A1c Calcium Magnesium Ammonia Triglycerides Cholesterol LDL Cholesterol VLDL Cholesterol HDL Cholesterol Lipase TSH Urine Color Yellow Urine Clarity Clear Urine pH 6.0 Ur Specific [place] 1.020 Urine Protein 15 H Urine Glucose (UA) Normal Urine Ketones Negative Urine Occult Blood Negative Urine Nitrite Negative Urine Bilirubin Negative Urine Urobilinogen Normal Ur Leukocyte Esterase Negative Urine RBC 0 SEEN Urine WBC 0-5 SEEN Ur Squamous Epith Cells 0-5 SEEN Urine Bacteria 0 SEEN Urine Mucus 0 SEEN Ur Random Sodium 138 Urine Creatinine 134.00 Urine Opiates Screen Urine Methadone Screen Ur Barbiturates Screen Ur Phencyclidine Scrn Ur Amphetamines Screen U Methamphetamin-MDMA U Benzodiazepines Scrn Urine Cocaine Screen U Cannabinoids Screen Ur Drug Screen Comment 03/06/18 11:40 WBC RBC Hgb Hct MCV MCH MCHC RDW RDW Differential Plt Count MPV Immature Gran % (Auto) Neut % (Auto) Lymph % (Auto) [place] % (Auto) Eos % (Auto) Baso % (Auto) Absolute Neuts (auto) Absolute Lymphs (auto) Total Counted Sodium 137 Potassium 3.8 Chloride 107 Carbon Dioxide 21.0 Anion Gap 9 BUN 16 Creatinine 1.06 H Estim Creat Clear Calc 58.40 Est GFR (MDRD) Af Amer 71 Est GFR (MDRD) Non-Af 59 L BUN/Creatinine Ratio 15.1 Glucose 274 H Hemoglobin A1c Calcium 8.3 L Magnesium Ammonia Triglycerides Cholesterol LDL Cholesterol VLDL Cholesterol HDL Cholesterol Lipase TSH Urine Color Urine Clarity Urine pH Ur Specific [place] Urine Protein Urine Glucose (UA) Urine Ketones Urine Occult Blood Urine Nitrite Urine Bilirubin Urine Urobilinogen Ur Leukocyte Esterase Urine RBC Urine WBC Ur Squamous Epith Cells Urine Bacteria Urine Mucus Ur Random Sodium Urine Creatinine Urine Opiates Screen Urine Methadone Screen Ur Barbiturates Screen Ur Phencyclidine Scrn Ur Amphetamines Screen U Methamphetamin-MDMA U Benzodiazepines Scrn Urine Cocaine Screen U Cannabinoids Screen Ur Drug Screen Comment POC Glucose 03/06/18 03/06/18 03/05/18 11:48 07:00 22:50 POC Glucose 295 H 226 H 249 H 03/05/18 16:57 POC Glucose 311 H Assessment/Plan The patient is a 47 year old CF with PMH HLD, DM, COPD, hypothyroidism, depression, chronic low back pain, morbid obesity admitted with AMS. Per patient she remembers waking up yesterday (03/05/18) then remembers her fiance telling her that he is taking her to the hospital, she does not remember being brought to the hospital, was admitted for confusion and AMS, found to have BS of 348 and KATLYN with creatinine of 1.59, per patient she started remembering things from last night and at present her encephalopathy has almost resolved, this time it was felt that her symptoms could have been medication induced due to Percocet and the same was discontinued by the hospitalist. She had admission due to similar symptoms about a month ago in January 2018, had normal CT head and MRI brain at that time, it was thought that her symptoms were medication induced due to Lyrica which was discontinued then. Patient has history of migraines and per patient is being treated by her PCP with Topamax, usually has HAs about 3-4 times a week, generalized, with photophobia, phonophobia, visual floaters and nausea, lasting hours. At present denies any SANTANA, visual disturbances, focal motor weakness or sensory loss. Impression Metabolic Encephalopathy Possible Medication induced Plan -Check CT head. Patient does not want to have another MRI brain -Check EEG -Avoid narcotics -Labs reviewed -Further medical management per primary team -GI/DVT prophylaxis -PT/OT -Please call with questions if any -Thank you for allowing us to participate in patient's care and management I spent 60 minutes taking history, doing physical examination, reviewing medical records, coordinating care and counseling the patient. Code Visit Inpatient E&M: 11572 Init Hosp L3
--- NOTE | 2018-03-06 15:05 | PN_ITS ---
<Milo Delgado - Last Filed: 03/06/18 14:52> Subjective: Pt intermittently confused throughout the day today. This AM she was able to provide me with her hx and why she came in, then later couldn't remember. She did admit to smoking cannabinoids. She does not think she took anything extra. She did not restart lyrica after last admission which at that time was felt to be the cause of her altered mental status. She denies hx of CVA. 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 She denies focal weakness. - Physical Exam General: Alert, Oriented x3, Cooperative HEENT: Atraumatic, PERRLA, EOMI, Normocephalic Neck: Supple, No JVD, Negative Carotid Bruits Lungs: Clear to auscultation, Normal air movement Cardiovascular: Regular rate, No murmurs Abdomen: Bowel Sounds Present, Soft, Non Tender Extremities: No edema, Capillary Refill Less than 3 Seconds Skin: No rashes, No breakdown Musculoskeletal: No Tenderness to Palpation of Joints or Extremities Neurological: Cranial nerves II-XII grossly intact Psych/Mental Status: Normal Affect, Appropriate Vital Signs Temp Pulse Resp BP Pulse Ox 97.1 F L 78 18 145/82 H 96 03/06/18 11:50 03/06/18 11:50 03/06/18 11:50 03/06/18 11:50 03/06/18 11:50 Oxygen Delivery Method Room Air Weight: 106.5 kg Body Mass Index (BMI) 39.0 Intake and Output for Last 24 Hours 03/04/18 03/05/18 03/06/18 23:59 23:59 23:59 Intake Total 1359 / 1359 2226 / 2226 Output Total 700 / 700 Balance 1359 / 1359 1526 / 1526 Laboratory Tests Past 24 Hrs 03/05/18 03/05/18 03/05/18 17:06 17:06 17:06 WBC RBC Hgb Hct MCV MCH MCHC RDW RDW Differential Plt Count MPV Immature Gran % (Auto) Neut % (Auto) Lymph % (Auto) Hart[place] % (Auto) Eos % (Auto) Baso % (Auto) Absolute Neuts (auto) Absolute Lymphs (auto) Total Counted Sodium Potassium Chloride Carbon Dioxide Anion Gap BUN Creatinine Estim Creat Clear Calc Est GFR (MDRD) Af Amer Est GFR (MDRD) Non-Af BUN/Creatinine Ratio Glucose Hemoglobin A1c 8.3 H Calcium Magnesium 2.0 Ammonia 22.0 Triglycerides Cholesterol LDL Cholesterol VLDL Cholesterol HDL Cholesterol Lipase 154 TSH 2.48 Urine Color Urine Clarity Urine pH Ur Specific [place] Urine Protein Urine Glucose (UA) Urine Ketones Urine Occult Blood Urine Nitrite Urine Bilirubin Urine Urobilinogen Ur Leukocyte Esterase Urine RBC Urine WBC Ur Squamous Epith Cells Urine Bacteria Urine Mucus Ur Random Sodium Urine Creatinine Urine Opiates Screen Urine Methadone Screen Ur Barbiturates Screen Ur Phencyclidine Scrn Ur Amphetamines Screen U Methamphetamin-MDMA U Benzodiazepines Scrn Urine Cocaine Screen U Cannabinoids Screen Ur Drug Screen Comment 03/06/18 03/06/18 03/06/18 05:20 05:20 06:30 WBC 13.4 H RBC 4.05 L Hgb 12.2 Hct 35.6 L MCV 87.9 MCH 30.1 MCHC 34.3 RDW 13.9 RDW Differential 44.7 H Plt Count 327 MPV 9.7 Immature Gran % (Auto) 0.100 Neut % (Auto) 56.1 Lymph % (Auto) 36.4 Hartley % (Auto) 6.1 Eos % (Auto) 1.0 Baso % (Auto) 0.3 Absolute Neuts (auto) 7.5 Absolute Lymphs (auto) 4.88 H Total Counted Not Reportable Sodium Potassium Chloride Carbon Dioxide Anion Gap BUN Creatinine Estim Creat Clear Calc Est GFR (MDRD) Af Amer Est GFR (MDRD) Non-Af BUN/Creatinine Ratio Glucose Hemoglobin A1c Calcium Magnesium Ammonia Triglycerides 345 H Cholesterol 155 LDL Cholesterol 57 VLDL Cholesterol 69 H HDL Cholesterol 29 L Lipase TSH Urine Color Urine Clarity Urine pH Ur Specific [place] Urine Protein Urine Glucose (UA) Urine Ketones Urine Occult Blood Urine Nitrite Urine Bilirubin Urine Urobilinogen Ur Leukocyte Esterase Urine RBC Urine WBC Ur Squamous Epith Cells Urine Bacteria Urine Mucus Ur Random Sodium Urine Creatinine Urine Opiates Screen NEGATIVE Urine Methadone Screen NEGATIVE Ur Barbiturates Screen NEGATIVE Ur Phencyclidine Scrn NEGATIVE Ur Amphetamines Screen NEGATIVE U Methamphetamin-MDMA NEGATIVE U Benzodiazepines Scrn NEGATIVE Urine Cocaine Screen NEGATIVE U Cannabinoids Screen POSITIVE H Ur Drug Screen Comment 03/06/18 03/06/18 03/06/18 06:30 06:30 06:30 WBC RBC Hgb Hct MCV MCH MCHC RDW RDW Differential Plt Count MPV Immature Gran % (Auto) Neut % (Auto) Lymph % (Auto) Hartley % (Auto) Eos % (Auto) Baso % (Auto) Absolute Neuts (auto) Absolute Lymphs (auto) Total Counted Sodium Potassium Chloride Carbon Dioxide Anion Gap BUN Creatinine Estim Creat Clear Calc Est GFR (MDRD) Af Amer Est GFR (MDRD) Non-Af BUN/Creatinine Ratio Glucose Hemoglobin A1c Calcium Magnesium Ammonia Triglycerides Cholesterol LDL Cholesterol VLDL Cholesterol HDL Cholesterol Lipase TSH Urine Color Yellow Urine Clarity Clear Urine pH 6.0 Ur Specific [place] 1.020 Urine Protein 15 H Urine Glucose (UA) Normal Urine Ketones Negative Urine Occult Blood Negative Urine Nitrite Negative Urine Bilirubin Negative Urine Urobilinogen Normal Ur Leukocyte Esterase Negative Urine RBC 0 SEEN Urine WBC 0-5 SEEN Ur Squamous Epith Cells 0-5 SEEN Urine Bacteria 0 SEEN Urine Mucus 0 SEEN Ur Random Sodium 138 Urine Creatinine 134.00 Urine Opiates Screen Urine Methadone Screen Ur Barbiturates Screen Ur Phencyclidine Scrn Ur Amphetamines Screen U Methamphetamin-MDMA U Benzodiazepines Scrn Urine Cocaine Screen U Cannabinoids Screen Ur Drug Screen Comment 03/06/18 11:40 WBC RBC Hgb Hct MCV MCH MCHC RDW RDW Differential Plt Count MPV Immature Gran % (Auto) Neut % (Auto) Lymph % (Auto) [place] % (Auto) Eos % (Auto) Baso % (Auto) Absolute Neuts (auto) Absolute Lymphs (auto) Total Counted Sodium 137 Potassium 3.8 Chloride 107 Carbon Dioxide 21.0 Anion Gap 9 BUN 16 Creatinine 1.06 H Estim Creat Clear Calc 58.40 Est GFR (MDRD) Af Amer 71 Est GFR (MDRD) Non-Af 59 L BUN/Creatinine Ratio 15.1 Glucose 274 H Hemoglobin A1c Calcium 8.3 L Magnesium Ammonia Triglycerides Cholesterol LDL Cholesterol VLDL Cholesterol HDL Cholesterol Lipase TSH Urine Color Urine Clarity Urine pH Ur Specific [place] Urine Protein Urine Glucose (UA) Urine Ketones Urine Occult Blood Urine Nitrite Urine Bilirubin Urine Urobilinogen Ur Leukocyte Esterase Urine RBC Urine WBC Ur Squamous Epith Cells Urine Bacteria Urine Mucus Ur Random Sodium Urine Creatinine Urine Opiates Screen Urine Methadone Screen Ur Barbiturates Screen Ur Phencyclidine Scrn Ur Amphetamines Screen U Methamphetamin-MDMA U Benzodiazepines Scrn Urine Cocaine Screen U Cannabinoids Screen Ur Drug Screen Comment POC Glucose 03/06/18 03/06/18 03/05/18 11:48 07:00 22:50 POC Glucose 295 H 226 H 249 H 03/05/18 16:57 POC Glucose 311 H Medical Necessity - Tobacco Use Smoking Status: Current every day smoker Tobacco Use: Cigarettes Assessment/Plan 1. Acute metabolic/toxic encephalopathy - unclear etiology. No focal weakness. Possibly continued polypharmacy which she was here for about 1 month ago at which time abilio was DCd. DC percocet. Was in KATLYN at admission which has improved, may not have been clearing medications well. Lethargy is improved but still somewhat confused. Pt refused MRI brain. Will have CT brain instead. Will also get EEG per neuro who is following. Drug screen with cannabinoids. Liver US with fatty liver, negative ammonia level. UA negative. TSH normal. 2. Chronic leukocytosis - unclear etiology. 3. KATLYN resolved - dehydration 2/2 poor PO intake. 4. COPD - stable. 5. Tobacco abuse - patch. Advised cessation. 6. DMt2 - hold orals. A1C 8.3. would benefit from additional agent at DC. Trigs poorly controlled as well. 7. HTN - trend 8. Hx cervical CA 9. Hypothyroidism - normal TSH, continue current synthroid dose. 10. Chronic pain syndrome 2/2 back pain - continue as ordered now. 11. GERD - ppi 12. Anx/Depression - meds possibly contributing to #1. DVT ppx: heparin DC planning: PTOT This patient was seen by Miol Delgado PA-C under the supervision of Doctor Rivas. <Bassem Hathaway - Last Filed: 03/06/18 17:51> - Physical Exam Vital Signs Temp Pulse Resp BP Pulse Ox 98.0 F 89 18 121/71 H 95 03/06/18 15:42 03/06/18 15:42 03/06/18 15:42 03/06/18 15:42 03/06/18 15:42 Oxygen Delivery Method Room Air Weight: 106.5 kg Body Mass Index (BMI) 39.0 Intake and Output for Last 24 Hours 03/04/18 03/05/18 03/06/18 23:59 23:59 23:59 Intake Total 1359 / 1359 2226 / 2226 Output Total 700 / 700 Balance 1359 / 1359 1526 / 1526 Laboratory Tests Past 24 Hrs 03/05/18 03/06/18 03/06/18 17:06 05:20 05:20 WBC 13.4 H RBC 4.05 L Hgb 12.2 Hct 35.6 L MCV 87.9 MCH 30.1 MCHC 34.3 RDW 13.9 RDW Differential 44.7 H Plt Count 327 MPV 9.7 Immature Gran % (Auto) 0.100 Neut % (Auto) 56.1 Lymph % (Auto) 36.4 Hartley % (Auto) 6.1 Eos % (Auto) 1.0 Baso % (Auto) 0.3 Absolute Neuts (auto) 7.5 Absolute Lymphs (auto) 4.88 H Total Counted Not Reportable Sodium Potassium Chloride Carbon Dioxide Anion Gap BUN Creatinine Estim Creat Clear Calc Est GFR (MDRD) Af Amer Est GFR (MDRD) Non-Af BUN/Creatinine Ratio Glucose Calcium Magnesium 2.0 Triglycerides 345 H Cholesterol 155 LDL Cholesterol 57 VLDL Cholesterol 69 H HDL Cholesterol 29 L Lipase 154 TSH 2.48 Urine Color Urine Clarity Urine pH Ur Specific [place] Urine Protein Urine Glucose (UA) Urine Ketones Urine Occult Blood Urine Nitrite Urine Bilirubin Urine Urobilinogen Ur Leukocyte Esterase Urine RBC Urine WBC Ur Squamous Epith Cells Urine Bacteria Urine Mucus Ur Random Sodium Urine Creatinine Urine Opiates Screen Urine Methadone Screen Ur Barbiturates Screen Ur Phencyclidine Scrn Ur Amphetamines Screen U Methamphetamin-MDMA U Benzodiazepines Scrn Urine Cocaine Screen U Cannabinoids Screen Ur Drug Screen Comment 03/06/18 03/06/18 03/06/18 06:30 06:30 06:30 WBC RBC Hgb Hct MCV MCH MCHC RDW RDW Differential Plt Count MPV Immature Gran % (Auto) Neut % (Auto) Lymph % (Auto) [place] % (Auto) Eos % (Auto) Baso % (Auto) Absolute Neuts (auto) Absolute Lymphs (auto) Total Counted Sodium Potassium Chloride Carbon Dioxide Anion Gap BUN Creatinine Estim Creat Clear Calc Est GFR (MDRD) Af Amer Est GFR (MDRD) Non-Af BUN/Creatinine Ratio Glucose Calcium Magnesium Triglycerides Cholesterol LDL Cholesterol VLDL Cholesterol HDL Cholesterol Lipase TSH Urine Color Yellow Urine Clarity Clear Urine pH 6.0 Ur Specific [place] 1.020 Urine Protein 15 H Urine Glucose (UA) Normal Urine Ketones Negative Urine Occult Blood Negative Urine Nitrite Negative Urine Bilirubin Negative Urine Urobilinogen Normal Ur Leukocyte Esterase Negative Urine RBC 0 SEEN Urine WBC 0-5 SEEN Ur Squamous Epith Cells 0-5 SEEN Urine Bacteria 0 SEEN Urine Mucus 0 SEEN Ur Random Sodium Urine Creatinine 134.00 Urine Opiates Screen NEGATIVE Urine Methadone Screen NEGATIVE Ur Barbiturates Screen NEGATIVE Ur Phencyclidine Scrn NEGATIVE Ur Amphetamines Screen NEGATIVE U Methamphetamin-MDMA NEGATIVE U Benzodiazepines Scrn NEGATIVE Urine Cocaine Screen NEGATIVE U Cannabinoids Screen POSITIVE H Ur Drug Screen Comment 03/06/18 03/06/18 06:30 11:40 WBC RBC Hgb Hct MCV MCH MCHC RDW RDW Differential Plt Count MPV Immature Gran % (Auto) Neut % (Auto) Lymph % (Auto) [place] % (Auto) Eos % (Auto) Baso % (Auto) Absolute Neuts (auto) Absolute Lymphs (auto) Total Counted Sodium 137 Potassium 3.8 Chloride 107 Carbon Dioxide 21.0 Anion Gap 9 BUN 16 Creatinine 1.06 H Estim Creat Clear Calc 58.40 Est GFR (MDRD) Af Amer 71 Est GFR (MDRD) Non-Af 59 L BUN/Creatinine Ratio 15.1 Glucose 274 H Calcium 8.3 L Magnesium Triglycerides Cholesterol LDL Cholesterol VLDL Cholesterol HDL Cholesterol Lipase TSH Urine Color Urine Clarity Urine pH Ur Specific [place] Urine Protein Urine Glucose (UA) Urine Ketones Urine Occult Blood Urine Nitrite Urine Bilirubin Urine Urobilinogen Ur Leukocyte Esterase Urine RBC Urine WBC Ur Squamous Epith Cells Urine Bacteria Urine Mucus Ur Random Sodium 138 Urine Creatinine Urine Opiates Screen Urine Methadone Screen Ur Barbiturates Screen Ur Phencyclidine Scrn Ur Amphetamines Screen U Methamphetamin-MDMA U Benzodiazepines Scrn Urine Cocaine Screen U Cannabinoids Screen Ur Drug Screen Comment POC Glucose 03/06/18 03/06/18 03/06/18 17:03 11:48 07:00 POC Glucose 268 H 295 H 226 H 03/05/18 22:50 POC Glucose 249 H Assessment/Plan This patient was seen in conjunction with Milo Delgado PA-C. I have independently interviewed and examined the patient and reviewed pertinent historical, laboratory, and other data. Please refer to Milo Delgado PA-C note for details of this patient's presentation, findings, and recommendations. I have reviewed Milo Delgado PA-C note and concur with documented findings. In brief, patient is a 47-year-old lady with chronic pain syndrome admitted with altered mental status. Patient admitted to a monitored bed for subsequent evaluation Physical Examination: Assessment: 1. Acute encephalopathy secondary to toxic encephalopathy from suspected accidental drug overdose and metabolic encephalopathy from her kidney injury 2. Acute kidney injury 3. Chronic pain syndrome 4. Hypothyroidism 5. GERD 6. Obesity with BMI of 39.1 7. Diabetes mellitus type 2 8. History of cervical CA 9. Tobacco dependence 10. COPD 11. Depression with anxiety Recommendations: 1. I have discussed the results of my overview and impressions with the patient 2. Options for management were reviewed Code Visit Inpatient E&M: 41309 Subs Hosp L3
--- NOTE | 2018-03-06 16:45 | EEG ---
- Electroencephalogram Date of service 03/06/18 History EEG is being done in this 47 yr F to rule out seizures EEG Description: This is an 18 channel EEG with 10-20 lead placement system. Bipolar montages, Referential and Circumferential montages were reviewed. Photic stimulation and Hyperventilation were performed. The posterior dominant background rhythm is absent. Photo stimulation did not elicit normal driving response or any abnormal photoparoxysmal response, Hyperventilation did not elicit any abnormal photoparoxysmal response. There is consistent artifact noted in the throughout the recording. Sleep was not identified. There was generalized background slowing in the theta frequency range of 6 Hz. There was intermittent presence of triphasic waves. There was no epileptiform discharges or electrographic seizures noted during this recording. EEG Interpretation This is an abnormal EEG due to the presence of mild to moderate generalized slowing and presence of triphasic waves. This can be seen in generalized cerebral dysfunction in form of metabolic/toxic encephalopathy. Clinical correlation is advised. Artifact present almost throughout the entire EEG recording. There is no epileptiform discharges or electrographic seizures noted during the record.
[2018-03-06 17:26] LABS: Bedside Glucose 268 mg/dL (70-110)
--- NOTE | 2018-03-06 17:36 | PCM.DC ---
- Discharge Diagnoses Current Active Problems: Current Active and Chronic Problems (Last Reviewed 12/12/17 @ 16:04 by Ting Denis) HLD (hyperlipidemia) (Chronic) Tobacco use (Chronic) Obesity (BMI 30-39.9) (Chronic) You will use the following diet at home:: Calorie/Carbohydrate Controlled (specify 1200, 1400, etc) - 1800 laura /day, Cardiac Your food should be the consistency of: Regular Your liquids should be the consistency of: Regular/Thin Discharge Activity: Return to Normal Activity Allergies/Adverse Reactions: Allergies codeine Allergy (Verified 03/05/18 14:00) Rash nabumetone [From Relafen] Allergy (Verified 03/05/18 14:00) Rash Sulfa (Sulfonamide Antibiotics) Allergy (Verified 03/05/18 14:00) Rash pregabalin [From Lyrica] Adverse Reaction (Verified 03/05/18 17:25) confusion/delirium CONFUSION/DELIRIUM albuterol Adverse Reaction (Uncoded 03/05/18 14:00) Laryngospasms Medications to take at Discharge Aspirin E.C. [Ecotrin] 81 mg PO DAILY 03/05/18 Atorvastatin Calcium [Lipitor] 40 mg PO QHS 03/05/18 Cetirizine HCl [All Day Allergy] 10 mg PO DAILY 03/05/18 Cholecalciferol (Vitamin D3) [Vitamin D3] 5,000 unit PO DAILY 03/05/18 Duloxetine HCl 60 mg PO DAILY 03/05/18 Febuxostat [Uloric] 80 mg PO DAILY 03/05/18 Fentanyl 25 mcg TD Q72H 03/05/18 Fluticasone/Vilanterol [Breo Ellipta 200-25 Mcg INH] 1 puff IH DAILY 03/05/18 Furosemide [Lasix] 20 mg PO DAILY PRN 03/05/18 Hydroxyzine HCl 25 mg PO Q8H PRN PRN 03/05/18 Irbesartan [Avapro] 75 mg PO QHS 03/05/18 Levothyroxine [Synthroid] 88 mcg PO DAILY 03/05/18 Lidocaine [Lidoderm Patch] 1 patch TOPICAL DAILY 03/05/18 Melatonin 1 mg PO 1700,2100 03/05/18 Metformin HCl [Glucophage] 1,000 mg PO BIDCM 03/05/18 Montelukast Sodium [Singulair] 10 mg PO DAILY 03/05/18 Omeprazole [Prilosec] 20 mg PO DAILY 03/05/18 Potassium Citrate [Potassium Citrate ER] 15 meq PO DAILY PRN 03/05/18 Sodium Chloride [Saline Nasal [place]] 1 spray NS Q2H PRN 03/05/18 Primary Care Physician: Aron Palumbo MD [Primary Care Provider] - Please follow up with your Primary Care Physician in: 1-2 weeks Please Follow Up With: Zoey Joyce MD When: 2-3 weeks Proposed Discharge Date: 03/06/18
--- NOTE | 2018-03-06 17:49 | DS.PCM_ITS ---
<Milo Delgado - Last Filed: 03/06/18 17:37> Discharge Date and Diagnosis Date of Admission: 03/05/18 Date of Discharge: 03/06/18 - Primary Discharge Diagnosis Acute toxic and metabolic encephalopathy 2/2 polypharmacy KATLYN 2/2 dehydration Chronic pain COPD no exacerbation HLD Tobacco abuse Hx Cervical CA Obesity Chronic leukocytosis DMt2 Hypothyroidism Anxiety/Depression - Secondary Discharge Diagnosis Chronic Problems (Last Reviewed 12/12/17 @ 16:04 by Ting Denis) HLD (hyperlipidemia) (Chronic) Tobacco use (Chronic) Obesity (BMI 30-39.9) (Chronic) Morbid obesity (Chronic) Chronic low back pain (Chronic) COPD (chronic obstructive pulmonary disease) (Chronic) Hypertension (Chronic) Cervical cancer (Chronic) Hospital Course and Treatment Imaging Results: US/Liver IMPRESSION: The liver is markedly enlarged with fatty infiltration. There is no ascites. There are no acute abnormalities. CT/Brain/Head without Contrast IMPRESSION: No acute intracranial abnormalities or changes. EEG Interpretation This is an abnormal EEG due to the presence of mild to moderate generalized slowing and presence of triphasic waves. This can be seen in generalized cerebral dysfunction in form of metabolic/toxic encephalopathy. Clinical correlation is advised. Artifact present almost throughout the entire EEG recording. There is no epileptiform discharges or electrographic seizures noted during the record. Consults: Isiah - neuro Operations: None Procedures: Electroencephalogram Summary of Care Provided: The patient is a 47 year old F with a hx of chronic pain and recent admission for toxic and metabolic encephalopathy 2/2 polypharmacy, HLD, HTN, DMt2, Obesity, hypothyroidism, chronic leukocytosis, COPD, nicotine abuse, who presented to the ER with increased lethargy at home and confusion. The patient was brought to the ER and was admitted with concern for stroke. She had been here about 1 month prior with a similar presentation, and at that time her lyrica was discontinued. She had had an MRI of the brain which was negative. This time in the ER she was found to have KATLYN with increased BUN and Creatinine. She was placed on fluids and admitted to the ER. We attempted to obtain an MRI the following day but this was refused by the patient. A CT of the brain was negative. Her renal function improved overnight. Her oxycodone was stopped. Her mentation improved. Neuro was consulted. An EEG was obtained which was abnormal with generalized slowing c/w encephalopathy see above. Tox screen was positive for cannabinoids. Liver US was obtained which showed fatty liver changes, ammonia was negative. Her symptoms were felt to be due to the multiple sedating and psychotropic agents that she is on in combination with renal failure accumulating to toxic levels making her lethargic. As her mentation had improved by the following day both in terms of KATLYN and alertness, she was discharged home in stable condition. She must discontinue oxycodone at this time, and additionally I have advised discontinuation of melatonin and hydroxizine. She will need to follow up with her PCP and with neurology. I have advised her to have a BMP in 3 days to reassess her renal function. This patient was seen by Milo Delgado PA-C under the supervision of Doctor Rivas. [] Discharge Diet: Low fat/ Low Cholesterol, 1800 Calorie Control Diet, 2000 mg Sodium Diet Discharge Activity: Return to Normal Activity Home Medications: Medications to take at Discharge Aspirin E.C. [Ecotrin] 81 mg PO DAILY 03/05/18 Atorvastatin Calcium [Lipitor] 40 mg PO QHS 03/05/18 Cetirizine HCl [All Day Allergy] 10 mg PO DAILY 03/05/18 Cholecalciferol (Vitamin D3) [Vitamin D3] 5,000 unit PO DAILY 03/05/18 Duloxetine HCl 60 mg PO DAILY 03/05/18 Febuxostat [Uloric] 80 mg PO DAILY 03/05/18 Fentanyl 25 mcg TD Q72H 03/05/18 Fluticasone/Vilanterol [Breo Ellipta 200-25 Mcg INH] 1 puff IH DAILY 03/05/18 Furosemide [Lasix] 20 mg PO DAILY PRN 03/05/18 Irbesartan [Avapro] 75 mg PO QHS 03/05/18 Levothyroxine [Synthroid] 88 mcg PO DAILY 03/05/18 Lidocaine [Lidoderm Patch] 1 patch TOPICAL DAILY 03/05/18 Metformin HCl [Glucophage] 1,000 mg PO BIDCM 03/05/18 Montelukast Sodium [Singulair] 10 mg PO DAILY 03/05/18 Omeprazole [Prilosec] 20 mg PO DAILY 03/05/18 Potassium Citrate [Potassium Citrate ER] 15 meq PO DAILY PRN 03/05/18 Sodium Chloride [Saline Nasal [place]] 1 spray NS Q2H PRN 03/05/18 Primary Care Physician: Aron Palumbo MD [Primary Care Provider] - Please follow up with your Primary Care Physician in: 1-2 weeks Please Follow Up With: Zoey Joyce MD When: 2-3 weeks Disposition: Home Minutes spent on discharge:: 35 Patient Condition:: Stable Medical Necessity - Tobacco Use Smoking Status: Current every day smoker Tobacco Use: Cigarettes Meaningful Use Info Meaningful Use Diagnoses (Choose all that apply): None applicable <Bassem Hathaway - Last Filed: 03/06/18 17:52> Discharge Date and Diagnosis - Secondary Discharge Diagnosis Chronic Problems (Last Reviewed 12/12/17 @ 16:04 by Ting Denis) HLD (hyperlipidemia) (Chronic) Tobacco use (Chronic) Obesity (BMI 30-39.9) (Chronic) Morbid obesity (Chronic) Chronic low back pain (Chronic) COPD (chronic obstructive pulmonary disease) (Chronic) Hypertension (Chronic) Cervical cancer (Chronic) Hospital Course and Treatment Imaging Results: 03/06/18 14:24 Brain/Head without Contrast [CT] Urgent Summary of Care Provided: In brief, patient is a 47-year-old lady with chronic pain syndrome admitted with altered mental status. Patient admitted to a monitored bed for subsequent evaluation Assessment: 1. Acute encephalopathy secondary to toxic encephalopathy from suspected accidental drug overdose and metabolic encephalopathy from her kidney injury 2. Acute kidney injury 3. Chronic pain syndrome 4. Hypothyroidism 5. GERD 6. Obesity with BMI of 39.1 7. Diabetes mellitus type 2 8. History of cervical CA 9. Tobacco dependence 10. COPD 11. Depression with anxiety Hospital course as elicited above by Milo Delgado PA-C Code Visit Inpatient E&M: 94879 Disch Hosp
== END 2018-03-06 19:00 | disposition home or self-care (01) | DRG 682 ==
LOC: ED 14:32 → PCU 15:37
PROVIDERS: Admitting Provider Family Medicine; Emergency Provider Emergency Medicine; Family Provider Family Medicine; PCP Family Medicine; Visit Provider Internal Medicine
DX: N17.9 Acute kidney failure, unspecified (principal); G92 Toxic encephalopathy; T50.905A Adverse effect of unspecified drugs, medicaments and biological substances, initial encounter; E86.0 Dehydration; J44.9 Chronic obstructive pulmonary disease, unspecified; Z85.41 Personal history of malignant neoplasm of cervix uteri; E11.9 Type 2 diabetes mellitus without complications; Z68.39 Body mass index [BMI] 39.0-39.9, adult; Z71.3 Dietary counseling and surveillance; E03.9 Hypothyroidism, unspecified; E78.5 Hyperlipidemia, unspecified; E66.01 Morbid (severe) obesity due to excess calories; I10 Essential (primary) hypertension; G89.4 Chronic pain syndrome; F17.210 Nicotine dependence, cigarettes, uncomplicated; F41.9 Anxiety disorder, unspecified; F32.9 Major depressive disorder, single episode, unspecified
CPT/HCPCS: 36415; 70450; 76705; 80048; 80061; 80076; 80307; 81001; 82140; 82570; 82962; 83036; 83690; 83735; 84300; 84443; 85025; 92523; 93005; 94640; 94667; 97162; 97165; 97802; 99284; J7030; A4216

== ENCOUNTER → 2018-03-20 14:38 | Outpatient (CLI) | payer MEDICARE, MEDICAID, SELFPAY ==
--- NOTE | 2018-03-20 14:38 | DT_ITS ---
This patient was seen during an EMR downtime March 19, 2018 - March 26, 2018. This patient may have a combination of paper and electronic documentation or all paper documentation. All documentation is viewable within the e-chart portion of [facility] for each patient visit.
--- NOTE | 2018-03-20 14:40 | RAD_ITS ---
STUDY: X-RAY - ABDOMEN/PELVIS REASON FOR EXAM: Female, 47 years old. Left upper quadrant and epigastric tenderness. Diabetic gastroparesis. TECHNIQUE: AP supine and upright views of the abdomen and pelvis. COMPARISON: None. FINDINGS: Normal visualized lung bases. There is a large amount of feces throughout nondistended colon. There is air in nondistended small bowel loops in left upper quadrant. There is no demonstrated free abdominal air. The visualized liver, spleen and kidneys are grossly normal in size and morphology. Normal soft tissue structures. Normal visualized osseous structures. RAD/[employer] Decub and/or Erect IMPRESSION: Question left upper quadrant localized ileus. Electronically Signed: Clive Alonso DO at 16:23 EDT Tel [phone], Service support ,
== END ==
PROVIDERS: Family Provider Family Medicine; PCP Family Medicine; Visit Provider Family Medicine
DX: E11.43 Type 2 diabetes mellitus with diabetic autonomic (poly)neuropathy (principal)
CPT/HCPCS: 74019

== ENCOUNTER → 2018-05-08 09:00 | Outpatient (CLI) | payer MEDICARE, MEDICAID, SELFPAY ==
[2018-05-08 10:40] LABS: ALB/GLOB Ratio 0.8 RATIO (0.9-2.4); AST(SGOT) 36 U/L (15-37); Alanine Aminotransfer ALT/SGPT 32 U/L (13-56); Albumin, Serum 3.6 g/dL (3.2-5.0); Alkaline Phosphatase 99 U/L (45-117); Anion Gap 12 (5-15); BUN 16 mg/dL (7-18); BUN/Creat Ratio 13.2 RATIO (10-20); Calcium,Total 8.9 mg/dL (8.5-10.1); Chloride 104 mmol/L (98-107); Creatinine, Serum 1.21 mg/dL (0.55-1.02); EST Glomerular Filtration Rate 50 mL/min (>60); Est Glom Filt Rate - Afr Amer 61 mL/min (>60); Globulin 4.8 g/dL (2.2-4.2); Glucose 214 mg/dL (74-106); Potassium 3.9 mmol/L (3.5-5.1); Protein, Total 8.4 g/dL (6.4-8.2); Sodium Level 136 mmol/L (136-145); T4 Free Direct 1.08 ng/dL (0.76-1.46)
== END ==
PROVIDERS: Family Provider Family Medicine; PCP Family Medicine; Visit Provider Family Medicine
DX: E03.9 Hypothyroidism, unspecified (principal); E11.40 Type 2 diabetes mellitus with diabetic neuropathy, unspecified; E11.43 Type 2 diabetes mellitus with diabetic autonomic (poly)neuropathy
CPT/HCPCS: 36415; 80053; 84439; 84443; 84481

== ENCOUNTER → 2018-06-11 14:07 | Outpatient (CLI) | payer MEDICARE, MEDICAID, SELFPAY | PROVIDERS: Family Provider Family Medicine; PCP Family Medicine; Visit Provider Family Medicine | DX: L02.211 Cutaneous abscess of abdominal wall (principal) | CPT/HCPCS: 87070; 87077; 87186; 87205 ==

== ENCOUNTER → 2018-09-25 14:25 | Outpatient (CLI) | payer MEDICARE, MEDICAID, SELFPAY ==
[2018-08-29 09:02] VITALS: BMI 37.3
--- OUTSIDE RECORDS SUMMARY | 2018-11-11 20:20 | XMS RPT_ITS ---
:1970 Author Organization OHIP Support Name Relationship Address Phone D Unavailable Unavailable Unavailable MARTÍNEZ, DIAMOND Unavailable [address] + [place] [address] D Unavailable Unavailable Unavailable MARTÍNEZ, DIAMOND Unavailable [address] + [place] [address] D Unavailable Unavailable Unavailable MARTÍNEZ, DIAMOND Unavailable [address] + [place] [address] D Unavailable Unavailable Unavailable MARTÍNEZ, DIAMOND Unavailable [address] + [place] [address] D Unavailable Unavailable Unavailable MARTÍNEZ, DIAMOND Unavailable [address] + [place] [address] D Unavailable Unavailable Unavailable MARTÍNEZ, DIAMOND Unavailable [address] + [place] [address] D Unavailable Unavailable Unavailable MARTÍNEZ, DIAMOND Unavailable [address] + [place] [address] D Unavailable Unavailable Unavailable MARTÍNEZ, DIAMOND Unavailable [address] + [place] [address] D Unavailable Unavailable Unavailable MARTÍNEZ, DIAMOND Unavailable [address] + [place] [address] D Unavailable Unavailable Unavailable MARTÍNEZ, DIAMOND Unavailable [address] + [place] [address] D Unavailable Unavailable Unavailable MARTÍNEZ, DIAMOND Unavailable [address] + [place] [address] D Unavailable Unavailable Unavailable MARTÍNEZ, DIAMOND Unavailable [address] + [place] [address] D Unavailable Unavailable Unavailable MARTÍNEZ, DIAMOND Unavailable [address] + [place] [address] D Unavailable Unavailable Unavailable MARTÍNEZ, DIAMOND Unavailable [address] + [place] [address] D Unavailable Unavailable Unavailable MARTÍNEZ, DIAMOND Unavailable [address] + [place] [address] D Unavailable Unavailable Unavailable MARTÍNEZ, DIAMOND Unavailable [address] + [place] [address] D Unavailable Unavailable Unavailable MARTÍNEZ, DIAMOND Unavailable [address] + [place] [address] D Unavailable Unavailable Unavailable MARTÍNEZ, DIAMOND Unavailable [address] + [place] [address] D Unavailable Unavailable Unavailable MARTÍNEZ, DIAMOND Unavailable [address] + [place] [address] D Unavailable Unavailable Unavailable MARTÍNEZMADI HUERTAH Unavailable [address] + [place] [address] D Unavailable Unavailable Unavailable MADI MARTÍNEZH Unavailable [address] + [place] [address] D Unavailable Unavailable Unavailable DIAMOND MARTÍNEZ Unavailable [address] + [place] [address] D Unavailable Unavailable Unavailable MADI MARTÍNEZH Unavailable [address] + [place] [address] D Unavailable Unavailable Unavailable MADI MARTÍNEZH Unavailable [address] + [place] [address] Care Team Providers Name Role Phone Margaret Tobin Attending Unavailable Palumbo, Aron Referring Unavailable Palumbo, Aron Primary Care Unavailable Margaret Tobin Attending Unavailable Palumbo, Aron Primary Care Unavailable Danae Tobinbeth Attending Unavailable Tobin, Margaret Referring Unavailable Palumbo, Aron Primary Care Unavailable Palumbo, Aron Attending Unavailable Palumbo, Aron Primary Care Unavailable Tobin, Margaret Attending Unavailable Palumbo, Aron Referring Unavailable Palumbo, Aron Primary Care Unavailable Palumbo, Aron Attending Unavailable Palumbo, Aron Referring Unavailable Palumbo, Aron Primary Care Unavailable Nate Coyne Attending Unavailable Nate Coyne Referring Unavailable Palumbo, Aron Primary Care Unavailable Palumbo, Aron Primary Care Unavailable Jopperi, Aron Admitting Unavailable Gonzalo Aron Attending Unavailable Horacio Aguilera Unavailable Palumbo, Aron Attending Unavailable Palumbo, Aron Referring Unavailable Palumbo, Aron Primary Care Unavailable Parth Watkins Attending Unavailable Slabgareth, Parth Referring Unavailable Palumbo, Aron Primary Care Unavailable Palumbo, Aron Attending Unavailable Palumbo, Aron Primary Care Unavailable Slabgareth, Parth Attending Unavailable Slaby, Parth Referring Unavailable Palumbo, Aron Primary Care Unavailable Slaby, Parth Consulting Unavailable Slaby, Parth Attending Unavailable Slaby, Parth Referring Unavailable Palumbo, Aron Primary Care Unavailable Slaby, Parth Consulting Unavailable Slaby, Parth Attending Unavailable Palumbo, Aron Referring Unavailable Jopperi, Aron Admitting Unavailable Palumbo, Aron Primary Care Unavailable Jopperi, Aron Consulting Unavailable Jopperi, Aron Attending Unavailable Jopperi, Aron Admitting Unavailable Palumbo, Aron Primary Care Unavailable Jopperi, Aron Consulting Unavailable Jopperi, Aron Attending Unavailable Yoav Montes Attending Unavailable Jopperi, Aron Referring Unavailable Palumbo, Aron Primary Care Unavailable White, Miranda Admitting Unavailable Isiah, Zoey S. Consulting Unavailable KitBassem mancia Attending Unavailable White, Miranda Admitting Unavailable White, Miranda Attending Unavailable Palumbo, Aron Primary Care Unavailable White, Miranda Consulting Unavailable White, Miranda Admitting Unavailable Palumbo, Aron Primary Care Unavailable Isiah, Zoey S. Consulting Unavailable Bassem Hathaway Attending Unavailable KitBassem mnacia Consulting Unavailable Palumbo, Aron Attending Unavailable Palumbo, Aron Referring Unavailable Palumbo, Aron Primary Care Unavailable Palumbo, Aron Attending Unavailable Palumbo, Aron Primary Care Unavailable Palumbo, Aron Attending Unavailable Palumbo, Aron Primary Care Unavailable Parth Watkins Attending Unavailable Palumbo, Aron Referring Unavailable LEMON, VANDANA (PT) Attending Unavailable TOBIN, MARGARET M Referring Unavailable LEMON, VANDANA (PT) Attending Unavailable TOBIN, MARGARET M Referring Unavailable LEMON, VANDANA (PT) Attending Unavailable TOBIN, MARGARET M Referring Unavailable LEMON, VANDANA (PT) Attending Unavailable TOBIN, MARGARET M Referring Unavailable ShengAly oswald P Attending Unavailable Palumbo, Aron A Primary Care Unavailable Aly Patricio P Attending Unavailable Aly Patricio P Attending Unavailable Krystal Patricioaliel P Attending Unavailable Sheng, Aly P Primary Care Unavailable ShengKrystal oswaldaliel P Attending Unavailable Palumbo, Aron A Primary Care Unavailable Aly Patricio P Attending Unavailable Sheng, [place] P Primary Care Unavailable ShengKrystalAly P Attending Unavailable Linwood Aron Elizalde Primary Care Unavailable Aly Patricio Attending Unavailable Aly Patricio Attending Unavailable Aly Patricio Attending Unavailable Aron Palumbo A Primary Care Unavailable PROBLEMS PROBLEMS DATE TYPE CONDITION / CODE ATTENDING STATUS SOURCE 10/19/2018 Unknown G89.18 - Other acute Parth Watkins Active [place] postprocedural pain Community / G89.18(ICD-10) Hospital Repository 10/01/2018 Unknown N30.90 - Cystitis, Aron Palumbo Active [place] unspecified without Community hematuria / Hospital N30.90(ICD-10) Repository 09/25/2018 Unknown R39.198 - Other Aron Palumbo Active [place] difficulties with Community micturition / Hospital R39.198(ICD-10) Repository 06/11/2018 Unknown L02.211 - Cutaneous Aron Palumbo Active [place] abscess of abdominal Community wall / Hospital L02.211(ICD-10) Repository 05/08/2018 Unknown E11.43 - Type 2 Aron Palumbo Active [place] diabetes mellitus Community with diabetic Hospital autonomic Repository (poly)neuropathy / E11.43(ICD-10) 05/08/2018 Unknown E03.9 - Aron Palumbo Active [place] Hypothyroidism, Community unspecified / Hospital E03.9(ICD-10) Repository 04/02/2018 Admitting Unknown / Valentina Patricio Medical diagnosis UNK(Unknown) Aly Chairez [facility] Repository 12/13/2017 Unknown R10.13 - Epigastric Aron Palumbo Active [place] pain / Community R10.13(ICD-10) Hospital Repository 11/20/2017 Active Unknown / VANDANA ARREDONDO Active [facility] UNK(Unknown) (PT) [facility] [place] Repository 11/07/2017 Unknown M54.5 - Low back Margaret Tobin Active [place] pain / M54.5(ICD-10) [facility] Repository PROCEDURES PROCEDURES No Procedure Records FoundRESULTS RESULTS PLASTIC SURGERY Observed: 10/26/2018 Status: F Source: [place] VISIT REPORT 4:58 PM [facility] RE[facility]IT[facility] [address] [place] [address] OFFICE VISIT Date of Service: 10/24/18 MR#: [id number] Acct: [id number] Name: GELY LACKEY Rep #: [id number] : 1970 Provider: aPrth Watkins MD Age/Sex: 48/F [place] [facility] Status: Signed Intake Vital Signs10/24/18 Body Mass Index (BMI) 37.0 10/24/18 Blood Pressure 105/73 10/24/18 Blood Pressure Location Rt brachial 10/24/18 Blood Pressure Position Sitting 10/24/18 Respiratory Rate 18 Intake Visit Reasons: postop surgery 10/18/18 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 Accompanied by: None Is patient in pain?: No Allergies codeine Allergy (Verified 10/24/18 15:14) Rash nabumetone [From Relafen] Allergy (Verified 10/24/18 15:14) Rash Sulfa (Sulfonamide Antibiotics) Allergy (Verified 10/24/18 15:14) Rash pregabalin [From Lyrica] Adverse Reaction (Verified 10/24/18 15:14) confusion/delirium albuterol Adverse Reaction (Uncoded 10/24/18 15:14) Laryngospasms Medications Atorvastatin Calcium [Lipitor] 40 mg PO QHS 03/05/18 [History Confirmed 10/18/18] Cetirizine HCl [All Day Allergy] 10 mg PO DAILY 03/05/18 [History Confirmed 10/18/18] Cholecalciferol (Vitamin D3) [Vitamin D3] 5,000 unit PO DAILY 03/05/18 [History Confirmed 10/18/18] Duloxetine HCl 60 mg PO DAILY 03/05/18 [History Confirmed 10/18/18] Febuxostat [Uloric] 80 mg PO DAILY 03/05/18 [History Confirmed 10/18/18] Fluticasone/Vilanterol [Breo Ellipta 200-25 Mcg INH] 1 puff IH DAILY 03/05/18 [History Confirmed 10/18/18] Furosemide [Lasix] 20 mg PO DAILY 03/05/18 [History Confirmed 10/18/18] Irbesartan [Avapro] 75 mg PO QHS 03/05/18 [History Confirmed 10/18/18] Levothyroxine [Synthroid] 100 mcg PO DAILY 03/05/18 [History Confirmed 10/18/18] Lidocaine [Lidoderm Patch] 1 patch TOPICAL DAILY 03/05/18 [History Confirmed 10/18/18] Metformin HCl [Glucophage] 1,000 mg PO BIDCM 03/05/18 [History Confirmed 10/18/18] Montelukast Sodium [Singulair] 10 mg PO DAILY 03/05/18 [History Confirmed 10/18/18] Omeprazole [Prilosec] 40 mg PO DAILY 03/05/18 [History Confirmed 10/18/18] Potassium Citrate [Potassium Citrate ER] 15 meq PO DAILY 03/05/18 [History Confirmed 10/18/18] Sodium Chloride [Saline Nasal [place]] 1 spray NS Q2H PRN 03/05/18 [History Confirmed 10/18/18] Buprenorphine 20 Mcg/Hr [Butrans 20 Mcg/Hr] 20 mcg TRANSDERM. SA 10/11/18 [History Confirmed 10/18/18] Gabapentin [Gralise] 600 mg PO TID 10/11/18 [History Confirmed 10/18/18] Clindamycin HCl [Cleocin HCl] 300 mg PO TID #15 cap 10/18/18 [Rx] Nurse's Note: PFSH Medical History Arthritis (Acute) Asthma (Acute) Back problem (Acute) Diabetes (Acute) GERD (gastroesophageal reflux disease) (Acute) Gastric paresis (Acute) IBS (irritable bowel syndrome) (Acute) Kidney stones (Acute) Migraines (Acute) Multiple allergies (Acute) Sleep apnea in adult (Acute) Thyroid disease (Acute) COPD (chronic obstructive pulmonary disease) (Chronic) Chronic pain (Chronic) Surgical History Carpal tunnel syndrome (Acute) Cervical cancer (Acute) Previous section (Inactive) gallbladder removal (Inactive) Family History Mother Cervical cancer Grandmother Arthritis Diabetes Grandfather Bleeding disorder Bowel disease Heart disease Aunt Throat cancer Father Diabetes Social History Smoking Status: Current every day smoker alcohol intake: never substance use type: does not use additional social history: DOES USE ASPIRIN DOES NOT USE IBUPROFEN HPI postop surgery 10/18/18: Details: Postop visit from her recent surgery on 10/18/18 where she underwent excision 7 mm chronically infected soft tissue mass left cheek with 1.5 cm layered closure. Comes in today with no complaints. Incision is dry and intact. Mild swelling present. No evidence of infection. Pathology was discussed with the patient. The lesion showed focal mild chronic folliculitis and dermal fibrosis and mild chronic inflammation and negative for malignancy. Sutures were removed today without difficulty. Massage the incision with skin lotion daily to help soften up the scar. She is interested in pursing a breast reduction. I recommended that she will need to stop smoking before proceeding with this elective surgery. She states she will work on that. Followup 3 months for further evaluation. Assessment AND Plan Problems 1. Cheek mass R22.0 2. Smoker F17.200 Coding Level of Care Code Global Post Op Diagnoses Cheek mass R22.0 Smoker F17.200 10/26/18 1658 <Electronically signed by Parth Watkins MD> Date Parth Watkins MD Cosigner Signature: Date (if applicable) CC: OPERATIVE REPORT Observed: 10/19/2018 Status: F Source: [place] 5:09 PM [facility]IT[facility] Medical Records Department [address] [place] [address] Operative Report 10/18/181954 MR#: [id number] Acct: [id number] Name: GELY LACKEY Rep #: [id number] : 1970 48 From: Parth Watkins MD PCP: Aron Palumbo MD Status: [facility] [place] [facility] [place] of Operation Date of Procedure: 10/18/18 Pre-Operative Diagnosis: 1. 7 mm chronically infected soft tissue mass left cheek. 2. Smoker. Post-Operative Diagnosis: Same. Surgery/Procedure Performed:: Excision 7 mm chronically infected soft tissue mass left cheek with 1.5 cm layered closure. Description of Surgical Findings:: 48 year old woman presents with a soft tissue mass left cheek that had increased in size over the last several months. She noticed some redness around the soft tissue mass. There was spontaneous drainage of this mass in June. She denies any trauma. She denies any bleeding. She denies any fever. She is not on antibiotics at the present time. She has not had any I AND D procedures. Patient was informed of the risks and complications of the procedure including alternatives to surgery. These were discussed with the patient personally. Patient voices understanding and wishes to proceed. Some of the risks and complications were included in a form from the [employer]. Encouraged patient to stop smoking as it may have deleterious effects on wound healing. tool keeper: None Type of Anesthesia:: Local MAC - xylocaine with epinephrine. Specimen's removed: Chronically infected soft tissue mass left cheek to Pathology. Drains: None. Estimated Blood Loss (mL): 1 ml. Description of Procedure: Patient was taken to OR in supine position and was given IV sedation. The left cheek was prepped and draped in the usual fashion. SCD's were placed for DVT prophylaxis. Perioperative antibiotics were given intravenously. The left cheek lesion was infiltrated with xylocaine and epinephrine. After waiting 5 minutes for the anesthetic to take effect, The lesion was excised in an oblique elliptical fashion down into the subcutaneous tissue. A suture was marked at 12 oclock position for pathology orientation. The lesion was sent to Pathology for analysis to rule out carcinoma. A fair amount of scar tissue was present indicative of the chronicity of the disease process. No pus was seen. The soft tissue mass was adherent to the skin which also needed to be excised to minimize recurrence. The lesion was excised with a 1 mm margin in all directions thus making it a 9 mm excision with a 1.5 cm layered closure. Hemostasis was obtained with electrocautery. The wound was closed in a layered fashion with 5-0 Monocryl interrupted sutures for the deep dermis and subcutaneous tissue. The skin was approximated with 6-0 Prolene simple interrupted sutures. Steri-Strips were applied followed by antibiotic ointment. Patient tolerated the procedure well and was sent to PACU in satisfactory condition. Patient will be sent home on antibiotics and pain medication. Patient will keep her head elevated during the initial postoperative period. Patient will followup in a week for a wound check and for discussion of the pathology report and for removal of the sutures. Grafts/Implants Used: None. - Complications None. - Admit VTE Documentation VTE Present on Admission: No VTE Mechan Device Prophylaxis: SCD's VTE Pharm Prophylaxis ordered?: No Code Visit Surgery Charges CPT - 34522 ICD-10 - R22.0, F17.200 89736 R22.0, F17.200 10/19/18 1709 <Electronically signed by Parth Watkins MD> Date Parth Watkins MD CC: Aron Palumbo MD; Parth Watkins MD Signed HISTORY AND PHYSICAL Observed: 10/19/2018 Status: F Source: [place] EXAM 5:02 PM [facility] Medical Records Department [address] [place] [address] History and Physical 10/17/18 1700 MR#: [id number] Acct: [id number] Name: GELY LACKEY Rep #: [id number] : 1970 48 From: Parth Watkins MD PCP: Aron Palumbo MD Status: [facility] [place] [facility] History and Physical Date of Admission: 10/18/18 HISTORY OF PRESENT ILLNESS 48 year old woman presents with a soft tissue mass left cheek that had increased in size over the last several months. She noticed some redness around the soft tissue mass. There was spontaneous drainage of this mass in June. She denies any trauma. She denies any bleeding. She denies any fever. She is not on antibiotics at the present time. She has not had any I AND D procedures. While here she also had complaints about her bilateral macromastia and associated painful symptomatology of neck pain, thoracic back pain, bilateral shoulder pain from shoulder grooving from the weight of her breasts on her bra straps, and inframammary intertrigo for which she uses powders for relief. She states she has had PT in the past with no relief in her breast symptomatology. She is due for her mammogram in November,. She presents today for further evaluation and treatment. PAST MEDICAL HISTORY Arthritis Asthma Back problem Diabetes GERD (gastroesophageal reflux disease) Gastric paresis IBS (irritable bowel syndrome) Kidney stones Migraines Multiple allergies Sleep apnea in adult Thyroid disease COPD (chronic obstructive pulmonary disease) Chronic pain PAST SURGICAL HISTORY Carpal tunnel syndrome surgery Cervical cancer surgery Previous section gallbladder removal ALLERGIES codeine nabumetone [From Relafen] Sulfa (Sulfonamide Antibiotics) pregabalin [From Lyrica] albuterol MEDICATIONS Aspirin E.C. [Ecotrin] Atorvastatin Calcium [Lipitor] Cetirizine HCl [All Day Allergy] Cholecalciferol (Vitamin D3) [Vitamin D3] Duloxetine Febuxostat [Uloric] Fentanyl 25mcg Fluticasone/Vilanterol [Breo Ellipta 200-25 Mcg INH] Furosemide [Lasix] Irbesartan [Avapro] Levothyroxine [Synthroid] Lidocaine [Lidoderm Patch] Metformin HCl [Glucophage] Montelukast Sodium [Singulair] Omeprazole [Prilosec] Potassium Citrate [Potassium Citrate ER] Sodium Chloride [Saline Nasal [place]] FAMILY HISTORY Mother - Cervical cancer Grandmother - Arthritis, Diabetes Grandfather , Bleeding disorder, Bowel disease, Heart disease Aunt - Throat cancer Father - Diabetes SOCIAL HISTORY Smoking Status: Current every day smoker alcohol intake: never substance use type: does not use REVIEW OF SYSTEMS General - Denies fever, fatigue, and weight loss. Eyes - Denies cataracts and glaucoma. ENT - Denies nasal congestion and sore throat. Endocrine - Denies excessive thirst and urination. Has thyroid disease. Skin - Denies skin cancer. Has infected cystic lesion left cheek. Has inframammary intertrigo for which she uses powders for relief. Musculoskeletal - Denies joint pain, joint stiffness, weakness of muscles and joints, and arthritis. Has neck pain and thoracic back pain. Has bilateral shoulder pain from shoulder grooving from the weight of her breasts on her bra straps. Neuro - Has headaches. Cardiovascular - Denies chest pain, fatigue, and shortness of breath with exertion. Psych - Denies anxiety. Has depression. Respiratory - Denies chronic cough. Has shortness of breath. Has asthma. Patient is a smoker. Gastrointestinal - Denies nausea, vomiting, and constipation. Has some diarrhea. Hematologic - Denies abnormal bruising and bleeding. Genitourinary - Denies hematuria and urinary frequency. PHYSICAL EXAMINATION General - Alert and Oriented. Bra size is 44 D. HEENT - PERRL. EOMI. Throat is clear. On the left cheek is a soft tissue mass. Measures 7 mm. It is nodular and mobile. Mild redness seen around the mass. No fluctuance. No purulent drainage. Neck - Supple and nontender. No cervical adenopathy. No bony tenderness. Has pericervical soft tissue tenderness. Breasts - Bilateral macromastia with the left breast larger than the right breast. No breast masses palpable. No axillary adenopathy. Distance from midclavicular line on the left to the nipple is 34 cm and from the nipple to the inframammary fold is 10 cm. Distance from midclavicular line on the right to the nipple is 33 cm and from the nipple to the inframammary fold is 9 cm. The nipple areolar complex diameter is 8 cm bilaterally. Lungs - Clear to auscultation. Heart - Regular rate and rhythm. Abdomen - Soft and nondistended. Extremities - FROM. No axillary adenopathy. Radial pulses are palpable. Has bilateral shoulder tenderness from shoulder grooving from the weight of her breasts on her bra straps. Back - No bony tenderness. There is perivertebral soft tissue tenderness especially in the thoracic area. Neuro - CN II-XII grossly intact. Psych - Normal mood and affect. ASSESSMENT 1. 7 mm chronically infected soft tissue mass left cheek. 2. Bilateral macromastia. 3. Neck pain. 4. Thoracic back pain. 5. Bilateral shoulder pain from shoulder grooving from the weight of the breasts on the bra straps. 6. Inframammary intertrigo. 7. Smoker. PLAN Recommend excision of this chronically infected soft tissue mass left cheek. Will send the lesion to Pathology for analysis to rule out carcinoma. If evidence of infection persistent, will also send a culture as well. Depending on how much of the skin needs to be excised will determine if a local skin flap is needed. Surgery will be done on an outpatient basis under local anesthesia and IV sedation. Patient was informed of the risks and complications of the procedure including alternatives to surgery. These were discussed with the patient personally. Patient voices understanding and wishes to proceed. Some of the risks and complications were included in a form from the [employer]. Encouraged patient to stop smoking as it may have deleterious effects on wound healing. After healing has occurred, the patient is interested in a breast reduction mammaplasty. With her large size and associated painful symptomatology, she would benefit from this surgery. Since she has Medicare, no precert can be done. Medicare would decide after the surgery if it were medically necessary. Therefore the patient would have to sign a Medicare waiver prior to the surgery. She will also need a mammogram preop. She is due for her next mammogram in November,. I would remove about 500 grams of breast tissue per side, with more being taken from the left breast. Discussed the extent of the scarring. She would have drains in for a few days. Tissue that is removed will be sent to Pathology for analysis to rule out carcinoma. Will discuss further after her left cheek surgery has healed. Tentatively, will proceed with the breast reduction surgery in the Spring after her mammogram. Her last recorded HgbA1c was 8.3. Since the breast reduction surgery is elective, the HgbA1c has to be less than 8 in order to proceed. She states she will followup with her PCP to work on lowering her HgbA1c. 10/19/18 1702 <Electronically signed by Parth Watkins MD> Date Parth Watkins MD Cosigner Signature: Date (if applicable) CC: Aron Palumbo MD; Parth Watkins MD Signed DISCHARGE INSTRUCTION Observed: 10/18/2018 Status: F Source: [place] 8:43 AM [facility] RE[facility]IT[facility] Medical Records Department [address] [place] [id number] Instructions for Home/Discharge Instructions 10/18/18 0839 MR#: [id number] Acct: [id number] Name: GELY LACKEY Rep #: [id number] : 1970 48 From: Parth Watkins MD PCP: rAon Palumbo MD Status: [facility] You will use the following diet at home:: No restrictions Discharge Activity: May not drive while taking narcotic pain medications., May Shower - in two days. May shower in (days): 2 May resume sexual activity in: No Restrictions Ice area for (Minutes): 5 - as needed for facial swelling. Weight Bearing Status: Weight bearing as tolerated Lifting Restrictions: 20 lbs. Keep extremity elevated above heart level: - - elevate head. Call your doctor if your incision/area has: Continuous Slow Oozing, Sudden Increased Bleeding, Increased Pain/ Swelling, Increased Redness, Foul Smelling Discharge, Swelling at the incision site Call your doctor if you observe: Fever of 101 or Higher, Coldness, Increased Pain, Shortness of breath, Chest pain, Calf discomfort, Uncontrolled pain Suture Line Care: - - apply antibiotic ointment to suture line dailiy. Cleanse incision/area with: - - may get incision wet in the shower in two days. Allergies/Adverse Reactions: Allergies codeine Allergy (Verified 10/11/18 13:08) Rash nabumetone [From Relafen] Allergy (Verified 10/11/18 13:08) Rash Sulfa (Sulfonamide Antibiotics) Allergy (Verified 10/11/18 13:08) Rash pregabalin [From Lyrica] Adverse Reaction (Verified 10/11/18 13:08) confusion/delirium CONFUSION/DELIRIUM albuterol Adverse Reaction (Uncoded 10/11/18 13:08) Laryngospasms Medications to take at Discharge Atorvastatin Calcium [Lipitor] 40 mg PO QHS 03/05/18 Cetirizine HCl [All Day Allergy] 10 mg PO DAILY 03/05/18 Cholecalciferol (Vitamin D3) [Vitamin D3] 5,000 unit PO DAILY 03/05/18 Duloxetine HCl 60 mg PO DAILY 03/05/18 Febuxostat [Uloric] 80 mg PO DAILY 03/05/18 Fluticasone/Vilanterol [Breo Ellipta 200-25 Mcg INH] 1 puff IH DAILY 03/05/18 Furosemide [Lasix] 20 mg PO DAILY 03/05/18 Irbesartan [Avapro] 75 mg PO QHS 03/05/18 Levothyroxine [Synthroid] 100 mcg PO DAILY 03/05/18 Lidocaine [Lidoderm Patch] 1 patch TOPICAL DAILY 03/05/18 Metformin HCl [Glucophage] 1,000 mg PO BIDCM 03/05/18 Montelukast Sodium [Singulair] 10 mg PO DAILY 03/05/18 Omeprazole [Prilosec] 40 mg PO DAILY 03/05/18 Potassium Citrate [Potassium Citrate ER] 15 meq PO DAILY 03/05/18 Sodium Chloride [Saline Nasal [place]] 1 spray NS Q2H PRN 03/05/18 Buprenorphine 20 Mcg/Hr [Butrans 20 Mcg/Hr] 20 mcg TRANSDERM. SA 10/11/18 Gabapentin [Gralise] 600 mg PO TID 10/11/18 Clindamycin HCl [Cleocin HCl] 300 mg PO TID #15 cap 10/18/18 Oxycodone HCl/Acetaminophen [Percocet 5/325] 1 tab PO 4X/DAY PRN PRN 5 Days #20 tab 10/18/18 The following prescriptions were given: Oxycodone HCl/Acetaminophen [Percocet 5/325] 1 tab PO 4X/DAY PRN PRN 5 Days #20 tab PRN Reason: Pain Clindamycin HCl [Cleocin HCl] 300 mg PO TID #15 cap Primary Care Physician: Aron Palumbo MD [Primary Care Provider] - Test Results: Test results from this visit will be discussed in further detail at your follow-up appointment, if applicable. Please Follow Up With: Parth Watkins MD When: one week. call [phone] for appt. Proposed Discharge Date: 10/18/18 10/18/18 0843 <Electronically signed by Parth Watkins MD> Date Parth Watkins MD CC: Aron Palumbo MD Signed BEDSIDE GLUCOSE Collected: 10/18/2018 Status: F Source: [place] 7:05 AM [facility] REPOSITORY TYPE CODE TESTS RESULT OUT OF REFERENCE UNITS RANGE LAB L501.080 70-110 mg/dL High BEDSIDE GLU 239 Result Comment: MANAGEMENT OF PATIENT CARE PER NURSING PROTOCOL Performed By: #### L501.080 #### [facility] Point of Care [address] [place], [place] [address] MASS (DEFINE AREA) Observed: 10/18/2018 Status: F Source: [place] 12:00 AM [facility] REPOSITORY Patient: GELY LACKEY : 1970 (48/F) Acct Num: [id number] Phys: Parth Watkins MD Unit Num: [id number] Loc: [facility] Specimen: [id number] Received: 10/18/18 - 1445 Spec Type: Mass TISSUES 1 TISSUES: Cheek, NOS COMMENT Immunohistochemistry ([id number]) supports the above diagnosis. Case has been reviewed in consultation with Dr. Villeda who concurs with the above diagnosis. IDC:CHRIST GROSS DESCRIPTION Received in fixative is one container labeled with the patient's name and designated chronically infected soft tissue mass left cheek. The specimen consists of a gomez-white skin ellipse measuring 0.7 x 0.2 cm and up to 0.3 cm in thickness. The specimen is oriented by a suture at 12 o'clock. The 12 o'clock margin is inked black and 6 o'clock margin is inked blue. The entire specimen is submitted in one cassette. It will be bisected at the time of embedding. / SJ:delaney 10/18/18 TC:5 CPT: 84152 HEADER OPERATION: Excision infected cystic lesion left cheek PRE-OP DIAGNOSIS: Chronically infected soft tissue mass, left cheek TISSUE SUBMITTED: Chronically infected soft tissue mass, left cheek, suture at 12 o'clock MICROSCOPIC DESCRIPTION Slides are reviewed. MICROSCOPIC DIAGNOSIS Left cheek lesion, excisional biopsy: Focal mild chronic folliculitis. Dermal fibrosis, mild chronic inflammation and melanophages. Negative for malignancy. SJ:delaney 10/19/18 Signed Trey Medina DO 10/22/18 <signature on file> Performed By: #### [facility] #### [facility] [address] [place] [address]. [place], [address] IMMUNOHISTOCHEMISTRY Observed: 10/18/2018 Status: F Source: [place] 12:00 AM [facility] REPOSITORY Patient: GELY LACKEY : 1970 (48/F) Acct Num: [id number] Phys: Roland CRABTREE,Parth Unit Num: [id number] Loc: [facility] Specimen: [id number] Received: 10/22/18 - 1007 Spec Type: IMMUNO TISSUES 1 TISSUES: Cheek, NOS SPECIMEN INFORMATION: Tissue Source: Chronically infected soft tissue mass, left cheek Clinical Info: Chronically infected soft tissue mass, left cheek Specimen Number: [id number] CPT code: 75063, 74102 x3 METHODOLOGY: Deparaffinized sections of prefer/formalin-fixed tissue or PAP/DQ stained slides are incubated with monoclonal/polyclonal antibodies/oligonucleotide probes. Localization is made via biotin free immunoperoxidase method. Appropriate controls are performed and reacted as expected. Results on target cell population are indicated in the following table: RESULTS: ANTIBODY / CLONE RESULT S-100 (4C4.9) negative MART-1 (A-103) negative Vimentin (V9) positive Macro (HAM-56) positive These tests were developed and their performance characteristics determined by [facility]. They may not have been cleared or approved by the U.S. Food and Drug Administration. The FDA has determined that such clearance or approval is not necessary. INTERPRETATION: Chronically infected soft tissue mass, left cheek, excision: No evidence of malignancy. AM:delaney 10/22/18 [facility] [address] [address] Signed Trey Medina, DO 10/22/18 <signature on file> Performed By: #### [facility] #### [facility] [address] [place] [address]. [place], [address] TOXASSURE COMPR Collected: 10/03/2018 Status: F Source: [facility] 3:24 PM [facility] REPOSITORY TYPE CODE TESTS RESULT OUT OF RANGE REFERENCE UNITS LAB L600.30424 () Normal TOXASSURE COMPR FINAL Result Comment: TOXASSURE COMP DRUG ANALYSIS,UR Test Result Flag Units Drug Present and Declared for Prescription Verification Buprenorphine 2 EXPECTED ng/mg creat Norbuprenorphine 13 EXPECTED ng/mg creat Source of buprenorphine is a scheduled prescription medication. Norbuprenorphine is an expected metabolite of buprenorphine. Gabapentin PRESENT EXPECTED Drug Present not Declared for Prescription Verification Oxazepam 58 UNEXPECTED ng/mg creat Temazepam 9 UNEXPECTED ng/mg creat Oxazepam and temazepam are expected metabolites of diazepam. Oxazepam is also an expected metabolite of other benzodiazepine drugs, including chlordiazepoxide, prazepam, clorazepate, halazepam, and temazepam. Oxazepam and temazepam are available as scheduled prescription medications. Topiramate PRESENT UNEXPECTED Duloxetine PRESENT UNEXPECTED Test Result Flag Units Ref Range Creatinine 256 mg/dL >=20 Declared Medications: The flagging and interpretation on this report are based on the following declared medications. Unexpected results may arise from inaccuracies in the declared medications. Note: The testing scope of this panel includes these medications: Gabapentin Note: The testing scope of this panel does not include small to moderate amounts of these reported medications: Buprenorphine Patch (Butrans) For clinical consultation, please call . Performed At: [facility] [address] [place], [place] [id number] [facility] [id number] Performed By: #### L600.03236 #### [facility] [address] [place] [address] # [phone] URINALYSIS, COMPLETE Collected: 10/01/2018 Status: F Source: [place] 2:55 PM [facility] REPOSITORY Order Comment: How was Urine Obtained? CLEAN CATCH TYPE CODE TESTS RESULT OUT OF RANGE REFERENCE UNITS LAB L400.3000 Yellow Normal COLOR SEE COMMENT BELOW Result Comment: Visual Urine Color: ORANGE LAB L400.3050 Clear Normal CLARITY Clear LAB L400.3200 Normal mg/dl Normal GLUCOSE, UR Normal LAB L400.3300 Negative mg/dL High BILIRUBIN URINE 6 Result Comment: COLOR OF URINE MAY AFFECT DIPSTICK RESULTS. LAB L400.3400 Negative mg/dl High KETONE UR 5 LAB L400.3465 1.002-1.030 Normal SP.GR. DIPSTX 1.015 LAB L400.3550 5.0 - 8.0 pH Normal UR 8.0 LAB L400.3600 Negative mg/dl High PROT DIPSTX 30 LAB L400.3700 Normal mg/dl High UROBILI 12 LAB L400.3750 Negative High NITRITE UR Positive LAB L400.3780 Negative /ul High OCCULT 25 BLOOD-UR LAB L400.3800 Negative /ul High LEUK ESTERASE 25 LAB L400.4050 0-5 /hpf Normal WBC 0-5 SEEN LAB L400.4100 0-5 /hpf Normal RBC-UA 0-5 SEEN LAB L400.4150 5-10 /hpf Normal SQUAM EPI 0-5 SEEN LAB L400.4300 None Seen /hpf Normal BACTERIA 0 SEEN LAB L400.4350 <or=2+ /hpf Normal MUCUS, URINE 1+ LAB L400.4400 0-5 /lpf Normal HYALINE CAST 5-10 SEEN Performed By: #### L400.0001 #### [facility] [address] [place], [address] Observed: 10/01/2018 Status: F Source: [place] CULTURE, URINE 2:55 PM [facility] REPOSITORY Urine Culture PREDOMINENT ORGANISM: 54033 cfu/mL LACTOBACILLUS SPECIES ORGANISM 1: Mixed Gram Positive Organisms [place] Count 11,000-25,000 MIX CULTURE Mixed contaminants. Submit a new specimen if indicated. Performed By: #### M100.0650 #### [facility] [address] [place], [address] Observed: 09/25/2018 Status: F Source: [place] CULTURE, URINE 3:06 PM [facility] REPOSITORY Urine Culture Probable urogenital contamination. ORGANISM 1: Mixed Gram Positive Organisms [place] Count >100,000 Performed By: #### M100.0650 #### [facility] [address] [place], [address] PLASTIC SURGERY Observed: 09/02/2018 Status: F Source: [place] VISIT REPORT 7:51 PM [facility] REPOSITORY [facility] [address] [place] [address] OFFICE VISIT Date of Service: 08/29/18 MR#: [id number] Acct: [id number] Name: GELY LACKEY Deborah Rep #: [id number] : 1970 Provider: Parth Watkins MD Age/Sex: 48/F Location: [facility] Status: Signed Intake Vital Signs08/29/18 Height 5 ft 5 in 08/29/18 Weight: 224 lb 2 oz Intake Visit Reasons: evaluation infected cystic lesion left cheek and evaluation breast reduction 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 [Ecotrin] 81 mg PO DAILY 03/05/18 [History Confirmed 08/29/18] Atorvastatin Calcium [Lipitor] 40 mg PO QHS 03/05/18 [History Confirmed 08/29/18] Cetirizine HCl [All Day Allergy] 10 mg PO DAILY 03/05/18 [History Confirmed 08/29/18] Cholecalciferol (Vitamin D3) [Vitamin D3] 5,000 unit PO DAILY 03/05/18 [History Confirmed 08/29/18] Duloxetine HCl 60 mg PO DAILY 03/05/18 [History Confirmed 08/29/18] Febuxostat [Uloric] 80 mg PO DAILY 03/05/18 [History Confirmed 08/29/18] Fentanyl 25 mcg TD Q72H 03/05/18 [History Confirmed 08/29/18] Fluticasone/Vilanterol [Breo Ellipta 200-25 Mcg INH] 1 puff IH DAILY 03/05/18 [History Confirmed 08/29/18] Furosemide [Lasix] 20 mg PO DAILY PRN 03/05/18 [History Confirmed 08/29/18] Irbesartan [Avapro] 75 mg PO QHS 03/05/18 [History Confirmed 08/29/18] Levothyroxine [Synthroid] 88 mcg PO DAILY 03/05/18 [History Confirmed 08/29/18] Lidocaine [Lidoderm Patch] 1 patch TOPICAL DAILY 03/05/18 [History Confirmed 08/29/18] Metformin HCl [Glucophage] 1,000 mg PO BIDCM 03/05/18 [History Confirmed 08/29/18] Montelukast Sodium [Singulair] 10 mg PO DAILY 03/05/18 [History Confirmed 08/29/18] Omeprazole [Prilosec] 20 mg PO DAILY 03/05/18 [History Confirmed 08/29/18] Potassium Citrate [Potassium Citrate ER] 15 meq PO DAILY PRN 03/05/18 [History Confirmed 08/29/18] Sodium Chloride [Saline Nasal Layton] 1 spray NS Q2H PRN 03/05/18 [History Confirmed 08/29/18] Patient : No PFSH Medical History Arthritis (Acute) Asthma (Acute) Back problem (Acute) Diabetes (Acute) GERD (gastroesophageal reflux disease) (Acute) Gastric paresis (Acute) IBS (irritable bowel syndrome) (Acute) Kidney stones (Acute) Migraines (Acute) Multiple allergies (Acute) Sleep apnea in adult (Acute) Thyroid disease (Acute) COPD (chronic obstructive pulmonary disease) (Chronic) Chronic pain (Chronic) Surgical History Carpal tunnel syndrome (Acute) Cervical cancer (Acute) Previous section (Inactive) gallbladder removal (Inactive) Family History Mother Cervical cancer Grandmother Arthritis Diabetes Grandfather Bleeding disorder Bowel disease Heart disease Aunt Throat cancer Father Diabetes Social History Smoking Status: Current every day smoker alcohol intake: never substance use type: does not use additional social history: DOES USE ASPIRIN DOES NOT USE IBUPROFEN HPI evaluation infected cystic lesion left cheek and evaluation breast reduction: Details: HISTORY OF PRESENT ILLNESS 48 year old woman presents with a soft tissue mass left cheek that had increased in size over the last several months. She noticed some redness around the soft tissue mass. There was spontaneous drainage of this mass in June. She denies any trauma. She denies any bleeding. She denies any fever. She is not on antibiotics at the present time. She has not had any I AND D procedures. While here she also had complaints about her bilateral macromastia and associated painful symptomatology of neck pain, thoracic back pain, bilateral shoulder pain from shoulder grooving from the weight of her breasts on her bra straps, and inframammary intertrigo for which she uses powders for relief. She states she has had PT in the past with no relief in her breast symptomatology. She is due for her mammogram in November,. She presents today for further evaluation and treatment. REVIEW OF SYSTEMS General - Denies fever, fatigue, and weight loss. Eyes - Denies cataracts and glaucoma. ENT - Denies nasal congestion and sore throat. Endocrine - Denies excessive thirst and urination. Has thyroid disease. Skin - Denies skin cancer. Has infected cystic lesion left cheek. Has inframammary intertrigo for which she uses powders for relief. Musculoskeletal - Denies joint pain, joint stiffness, weakness of muscles and joints, and arthritis. Has neck pain and thoracic back pain. Has bilateral shoulder pain from shoulder grooving from the weight of her breasts on her bra straps. Neuro - Has headaches. Cardiovascular - Denies chest pain, fatigue, and shortness of breath with exertion. Psych - Denies anxiety. Has depression. Respiratory - Denies chronic cough. Has shortness of breath. Has asthma. Patient is a smoker. Gastrointestinal - Denies nausea, vomiting, and constipation. Has some diarrhea. Hematologic - Denies abnormal bruising and bleeding. Genitourinary - Denies hematuria and urinary frequency. PHYSICAL EXAMINATION General - Alert and Oriented. Bra size is 44 D. HEENT - PERRL. EOMI. Throat is clear. On the left cheek is a soft tissue mass. Measures 7 mm. It is nodular and mobile. Mild redness seen around the mass. No fluctuance. No purulent drainage. Neck - Supple and nontender. No cervical adenopathy. No bony tenderness. Has pericervical soft tissue tenderness. Breasts - Bilateral macromastia with the left breast larger than the right breast. No breast masses palpable. No axillary adenopathy. Distance from midclavicular line on the left to the nipple is 34 cm and from the nipple to the inframammary fold is 10 cm. Distance from midclavicular line on the right to the nipple is 33 cm and from the nipple to the inframammary fold is 9 cm. The nipple areolar complex diameter is 8 cm bilaterally. Lungs - Clear to auscultation. Heart - Regular rate and rhythm. Abdomen - Soft and nondistended. Extremities - FROM. No axillary adenopathy. Radial pulses are palpable. Has bilateral shoulder tenderness from shoulder grooving from the weight of her breasts on her bra straps. Back - No bony tenderness. There is perivertebral soft tissue tenderness especially in the thoracic area. Neuro - CN II-XII grossly intact. Psych - Normal mood and affect. ASSESSMENT 1. 7 mm chronically infected soft tissue mass left cheek. 2. Bilateral macromastia. 3. Neck pain. 4. Thoracic back pain. 5. Bilateral shoulder pain from shoulder grooving from the weight of the breasts on the bra straps. 6. Inframammary intertrigo. 7. Smoker. PLAN Recommend excision of this chronically infected soft tissue mass left cheek. Will send the lesion to Pathology for analysis to rule out carcinoma. If evidence of infection persistent, will also send a culture as well. Depending on how much of the skin needs to be excised will determine if a local skin flap is needed. Surgery will be done on an outpatient basis under local anesthesia and IV sedation. Patient was informed of the risks and complications of the procedure including alternatives to surgery. These were discussed with the patient personally. Patient voices understanding and wishes to proceed. Some of the risks and complications were included in a form from the [employer]. Encouraged patient to stop smoking as it may have deleterious effects on wound healing. After healing has occurred, the patient is interested in a breast reduction mammaplasty. With her large size and associated painful symptomatology, she would benefit from this surgery. Since she has Medicare, no precert can be done. Medicare would decide after the surgery if it were medically necessary. Therefore the patient would have to sign a Medicare waiver prior to the surgery. She will also need a mammogram preop. She is due for her next mammogram in November,. I would remove about 500 grams of breast tissue per side, with more being taken from the left breast. Discussed the extent of the scarring. She would have drains in for a few days. Tissue that is removed will be sent to Pathology for analysis to rule out carcinoma. Will discuss further after her left cheek surgery has healed. Tentatively, will proceed with the breast reduction surgery in the Spring after her mammogram. Her last recorded HgbA1c was 8.3. Since the breast reduction surgery is elective, the HgbA1c has to be less than 8 in order to proceed. She states she will followup with her PCP to work on lowering her HgbA1c. Assessment AND Plan Problems 1. Cheek mass R22.0 2. Breast hypertrophy N62 3. Chronic cervical pain M54.2; G89.29 4. Chronic thoracic back pain M54.6; G89.29 5. Shoulder pain M25.519 6. Intertrigo L30.4 7. Smoker F17.200 Coding Level of Care Code Off vis,new,level 4 Diagnoses Cheek mass R22.0 Breast hypertrophy N62 Chronic cervical pain M54.2; G89.29 Chronic thoracic back pain M54.6; G89.29 Shoulder pain M25.519 Intertrigo L30.4 Smoker F17.200 09/02/181950 <Electronically signed by Parth Watkins MD> Date Parth Watkins MD Cosigner Signature: Date (if applicable) CC: Aron Palumbo MD FLUOROSCOPY IN OR/PAIN Observed: 08/28/2018 Status: F [facility] FLUOROSCOPY IN OR/PAIN MGT Ordering Physician: Aly Patricio MD 08/28/2018 3:40 PM FLUOROSCOPY FOR PAIN MANAGEMENT: Clinical Statement: Sacroiliitis. Report: 50 seconds of fluoroscopy time was utilized by pain management. Frontal and lateral fluoroscopic images were obtained over the sacrum to document needle placement and saved to PACS. There are four needles visualized projecting over the right upper and mid sacrum. Further details can be found in the procedural note. IMPRESSION: Documentation of fluoroscopic utilization by pain management. ---- Electronic Signature on File ---- Signed By: Otf Parr MD [email or web address] Dictated: 08/28/2018 4:35 PM Signed: 08/28/2018 4:38 PM Reported By: OTF PARR M.D. Signed By: OTF PARR M.D. FLUOROSCOPY IN OR/PAIN Observed: 08/16/2018 Status: F [facility] 7:[facility] AM [facility] FLUOROSCOPY IN OR/PAIN MGT Ordering Physician: Aly Patricio MD 08/16/2018 2:30 PM FLUOROSCOPY AND RADIOGRAPHS UTILIZED IN PAIN MANAGEMENT Clinical Statement: Sacroiliitis FINDINGS: 34.2 seconds fluoroscopy time utilized. A total of two radiographs were obtained demonstrating needle placement at multiple sites overlying the left side of the sacrum. IMPRESSION: Documentation of fluoroscopy and radiographs utilized in pain management. Please see clinician's report for complete details. ---- Electronic Signature on File ---- Signed By: Monse Doyle MD [email or web address] Dictated: 08/16/2018 2:53 PM Signed: 08/16/2018 2:54 PM Reported By: MONSE DOYLE M.D. Signed By: MONSE DOYLE M.D. Observed: 06/11/2018 Status: F Source: [place] CULTURE, WOUND 1:40 PM [facility] REPOSITORY Gram Stain Gram Stain 2+ Red Blood Cells 1+ Gram positive cocci 1+ Epithelial cells 2+ White Blood Cells Wound Culture ORGANISM 1: Staphylococcus aureus Amount Growth Growth Staphylococcus aureus: REACTION Benzylpenicillin NF >=0.5 R Cefoxitin *NF - Clindamycin $$ <=0.25 S Inducable Clindamycin [place] - Erythromycin $ >=8 R Gentamicin $ <=0.5 S Levofloxacin $ >=8 R Linezolid $$$$ 1 S Moxifloxicin *NF >=8 R Oxacillin NF 0.5 S Tigecycline $$$$ <=0.12 S Rifampin $$ <=0.5 S Tetracycline NF <=1 S Trimethoprim/Sulfametho $ >=320 R Vancomycin $ 1 S (NF) indicates non-formulary drug at [facility]. Approval by Infectious Disease Specialist required before non-formulary drugs may be ordered and/or dispensed. * CLSI guidelines does not recommend testing of cephalosporins. This interpretation is deduced from Beta-lactam/penicillin results. Performed By: #### M100.1400 #### [facility] [address] [place], [address] FLUOROSCOPY IN OR/PAIN Observed: 06/05/2018 Status: F Source: [facility] MGT 6:37 AM [facility] REPOSITORY FLUOROSCOPY IN OR/PAIN MGT Ordering Physician: Aly Patricio MD 06/05/2018 9:15 AM INTRAOPERATIVE FLUOROSCOPY: Clinical Statement: Sacroiliac Comparison: None FINDINGS: 5.2 seconds of intraoperative fluoroscopy were provided to Dr. Aly Patricio for bilateral sacroiliac joint injections. Two fluoroscopic spot films were obtained. Frontal views of the sacrum show needles projecting near the bilateral sacroiliac joints IMPRESSION: Documentation of intraoperative fluoroscopy as described ---- Electronic Signature on File ---- Signed By: Frank Leon MD [email or web address] Dictated: 06/05/2018 9:34 AM Signed: 06/05/2018 9:35 AM Reported By: FRANK LEON M.D. Signed By: FRANK LEON M.D. FLUOROSCOPY IN OR/PAIN Observed: 05/15/2018 Status: F Source: [facility] MGT 7:08 AM [facility] REPOSITORY FLUOROSCOPY IN OR/PAIN MGT Ordering Physician: Aly Patricio MD 05/15/2018 9:50 AM FLUOROSCOPY AND SPOT RADIOGRAPHS: Clinical Statement: Lumbar DDD Comparison: None FINDINGS: 12.5 seconds of fluoroscopic time was utilized. Two spot radiographs were obtained. IMPRESSION: 1. Documentation of utilization of 12.5 seconds fluoroscopic time. 2. Two spot radiographs obtained. For details, refer to the procedure note by the physician performing this procedure. This report is for fluoroscopy documentation purposes only. ---- Electronic Signature on File ---- Signed By: Pedro Chavez MD [email or web address] Dictated: 05/15/2018 10:22 AM Signed: 05/15/2018 10:23 AM Reported By: PEDRO CHAVEZ M.D. Signed By: PEDRO CHAVEZ M.D. COMPREHENSIVE METABOLIC Collected: 05/08/2018 Status: F Source: [place]IET ARAUJO 9:02 AM [facility] REPOSITORY Order Comment: Order Date: 05/08/18 Order Info: 0786-1 - CMP Order Info: 3051-0 - T3F Order Info: 3016-3 - TSH Order Info: 3024-7 - T4F TYPE CODE TESTS RESULT OUT OF RANGE REFERENCE UNITS LAB L501.0100 74-106 mg/dL High GLU 214 Result Comment: Glucose result greater than or equal to 200 mg/dL suggests DIABETES MELLITUS per A.D.A. criteria. Please note revised GLUCOSE reference range effective 2017. LAB L501.1000 7-18 mg/dL Normal BUN 16 LAB L501.1100 0.55-1.02 mg/dL High CREAT,SERUM 1.21 Result Comment: The validity of the calculated GFR AND GFRAA in patients over 70 years has not been determined. Clinical correlation is essential. LAB L501.1110 >60 mL/min Low EST GFR 50 Result Comment: Non- GFR Calc LAB L501.1115 >60 mL/min Normal EST GFR - AA 61 Result Comment: GFR Calc LAB L501.1300 10-20 RATIO Normal BUN/CRE 13.2 LAB L501.1500 6.4-8.2 g/dL High T PROT 8.4 LAB L501.1800 3.2-5.0 g/dL Normal ALB 3.6 LAB L501.1950 2.2-4.2 g/dL High GLOB 4.8 LAB L501.2000 0.9-2.4 RATIO Low A/G 0.8 LAB L501.2200 8.5-10.1 mg/dL CA Normal 8.9 LAB L501.4100 15-37 U/L Normal AST 36 LAB L501.4305 45-117 U/L Normal ALK P 99 LAB L501.4405 13-56 U/L Normal ALT 32 LAB L501.4600 0.20-1.00 mg/dL T Normal BILI 0.40 LAB L501.5300 136-145 mmol/L NA Normal 136 LAB L501.5600 3.5-5.1 mmol/L K Normal 3.9 LAB L501.5900 98-107 mmol/L CL Normal 104 LAB L501.6100 21.0-32.0 mmol/L Low CO2 20.0 LAB L501.6200 5-15 Normal GAP 12 Performed By: #### L500.4050, L501.9520 #### [facility] [address], [place], [id number] THYROID STIM HORMONE Collected: 05/08/2018 Status: F Source: KIET (TSH) 9:02 AM [facility] REPOS[facility] Order Comment: Order Date: 05/08/18 Order Info: 0786-1 - CMP Order Info: 3051-0 - T3F Order Info: 3016-3 - TSH Order Info: 3024-7 - T4F TYPE CODE TESTS RESULT OUT OF RANGE REFERENCE UNITS LAB L501.9520 0.358-3.74 uIU/mL High TSH 10.50 Performed By: #### L500.4050, L501.9520 #### [facility] [address] [place], [address] FREE T3 Collected: 05/08/2018 Status: F Source: KIET 9:02 AM [facility] Order Comment: Order Date: 05/08/18 Order Info: 0786-1 - CMP Order Info: 3051-0 - T3F Order Info: 3016-3 - TSH Order Info: 3024-7 - T4F TYPE CODE TESTS RESULT OUT OF RANGE REFERENCE UNITS LAB L501.61058 2.18-3.98 pg/mL High FREE T3 5.0 Performed By: #### L501.20298, L506.0400 #### [facility] [address] [place], [address] T4 FREE DIRECT Collected: 05/08/2018 Status: F Source: KIET 9:02 AM [facility] Order Comment: Order Date: 05/08/18 Order Info: 0786-1 - CMP Order Info: 3051-0 - T3F Order Info: 3016-3 - TSH Order Info: 3024-7 - T4F TYPE CODE TESTS RESULT OUT OF RANGE REFERENCE UNITS LAB L506.0400 0.76-1.46 ng/dL Normal T4 FREE 1.08 DIRECT Performed By: #### L501.00471, L506.0400 #### [facility] [address] [place], [address] FLUOROSCOPY IN OR/PAIN Observed: 05/01/2018 Status: F Source: [facility] MGT 6:57 AM [facility] FLUOROSCOPY IN OR/PAIN MGT Ordering Physician: Aly Patricio MD 05/01/2018 8:16 AM FLUOROSCOPY AND SPOT RADIOGRAPHS: Clinical Statement: Lumbar DDD Comparison: None FINDINGS: 11.4 seconds of fluoroscopic time was utilized. Two spot radiographs were obtained. IMPRESSION: 1. Documentation of utilization of 11.4 seconds fluoroscopic time. 2. Two spot radiographs obtained. For details, refer to the procedure note by the physician performing this procedure. This report is for fluoroscopy documentation only. ---- Electronic Signature on File ---- Signed By: Pedro Chavez MD [email or web address] Dictated: 05/01/2018 8:59 AM Signed: 05/01/2018 9:00 AM Reported By: PEDRO CHAVEZ M.D. Signed By: PEDRO CHAVEZ M.D. DOWNTIME REPORT Observed: 04/05/2018 Status: F Source: KIET 2:14 PM [facility] REPOSITORY [facility] Medical Records Department [address] [place] [address] Downtime Report MR#: [id number] Acct: [id number] Name: GELY LACKEY Rep #: [id number] : 1970 47 From: Josh Irby PCP: Aron Palumbo MD Status: REG CLI This patient was seen during an EMR downtime March 19, 2018 - March 26, 2018. This patient may have a combination of paper and electronic documentation or all paper documentation. All documentation is viewable within the e-chart portion of [facility] [employer] for each patient visit. ABD INC DECUB Observed: 03/26/2018 Status: F Source: KIET AND/OR ERECT 1:28 PM [facility] REPOSITORY [facility] Imaging Services [address] [place] [address] Abd Inc Decub and/or Erect MR#: [id number] Acct: [id number] Name: GELY LACKEY Rep #: [id number] : 1970 F 47 From: Clive Alonso DO PCP: Aron Palumbo MD Status: REG CLI Study: Abd Inc Decub and/or Erect Date of Exam: 03/20/18 Exam# [id number] Ordering Dr: Aron Palumbo MD STUDY: X-RAY - ABDOMEN/PELVIS REASON FOR EXAM: Female, 47 years old. Left upper quadrant and epigastric tenderness. Diabetic gastroparesis. TECHNIQUE: AP supine and upright views of the abdomen and pelvis. COMPARISON: None. FINDINGS: Normal visualized lung bases. There is a large amount of feces throughout nondistended colon. There is air in nondistended small bowel loops in left upper quadrant. There is no demonstrated free abdominal air. The visualized liver, spleen and kidneys are grossly normal in size and morphology. Normal soft tissue structures. Normal visualized osseous structures. RAD/Abd Inc Decub and/or Erect IMPRESSION: Question left upper quadrant localized ileus. Electronically Signed: Clive Alonso DO at 16:23 EDT Tel [phone], Service support , CC: Aron Palumbo MD Industrial Engineering Professor: Signed CONSULTATION Observed: 03/18/2018 Status: F Source: [place] 2:56 PM [facility] REPOS[facility]ORY [facility] Medical Records Department [address] [place] [address] Consultation 03/06/18 1456 MR#: [id number] Acct: [id number] Name: GELY LACKEY Rep #: [id number] : 1970 47 From: Zoey Joyec MD PCP: Aron Palumbo MD Status: DIS IN Y Location: [place] [address] Problem List (1) Encephalopathy acute Status: Acute Reason for Consult Date of Consultation: 03/06/18 Reason for Consultation: AMS History of Present Illness: The patient is a 47 year old CF with PMH HLD, DM, COPD, hypothyroidism, depression, chronic low back pain, morbid obesity admitted with AMS. Per patient she remembers waking up yesterday (03/05/18) then remembers her fiance telling her that he is taking her to the hospital, she does not remember being brought to the hospital, was admitted for confusion and AMS, found to have BS of 348 and KALTYN with creatinine of 1.59, per patient she started remembering things from last night and at present her encephalopathy has almost resolved, this time it was felt that her symptoms could have been medication induced due to Percocet and the same was discontinued by the hospitalist. She had admission due to similar symptoms about a month ago in January 2018, had normal CT head and MRI brain at that time, it was thought that her symptoms were medication induced due to Lyrica which was discontinued then. Patient has history of migraines and per patient is being treated by her PCP with Topamax, usually has HAs about 3-4 times a week, generalized, with photophobia, phonophobia, visual floaters and nausea, lasting hours. At present denies any SANTANA, visual disturbances, focal motor weakness or sensory loss. [] Past Medical History Past Medical History (Chronic Problems): Chronic Problems (Last Reviewed 12/12/17 @ 16:04 by Ting Densi) HLD (hyperlipidemia) (Chronic) Tobacco use (Chronic) Obesity (BMI 30-39.9) (Chronic) Morbid obesity (Chronic) Chronic low back pain (Chronic) COPD (chronic obstructive pulmonary disease) (Chronic) Hypertension (Chronic) Cervical cancer (Chronic) Allergies codeine Allergy (Verified 03/05/18 14:00) Rash nabumetone [From Relafen] Allergy (Verified 03/05/18 14:00) Rash Sulfa (Sulfonamide Antibiotics) Allergy (Verified 03/05/18 14:00) Rash pregabalin [From Lyrica] Adverse Reaction (Verified 03/05/18 17:25) confusion/delirium CONFUSION/DELIRIUM albuterol Adverse Reaction (Uncoded 03/05/18 14:00) Laryngospasms Home Medications: Ambulatory Orders Medication Instructions Recorded Aspirin E.C. [Ecotrin] 81 mg PO DAILY 03/05/18 Atorvastatin Calcium [Lipitor] 40 mg PO QHS 03/05/18 Cetirizine HCl [All Day Allergy] 10 mg PO DAILY 03/05/18 Surgical History: - - Carpal tunnel release, 2, cholecystectomy. 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 Lives: Spouse/ Significant Other Smoking Status: Current every day smoker Tobacco Use: Cigarettes Alcohol: None Drugs: None - *Family History Maternal History Items: Diabetes Paternal History Items: No pertinent history Review of Systems Constitutional: Reports: - - complete ROS negative except as documented in HPI - Physical Exam General: Alert, Cooperative, No apparent distress HEENT: Normocephalic Neck: Supple Lungs: Clear to auscultation Cardiovascular: Regular rate Abdomen: Bowel Sounds Present Extremities: No cyanosis Skin: No rashes Musculoskeletal: No Tenderness to Palpation of Joints or Extremities Neurological: - - consious, awake, AoA x2 (only has some mild confusion with date/time), CN 2-12 grossly intact, Power 5/5 all 4 extremities, no sensory loss, no cerebellar signs, Reflexes + B/L B/S/T/K/A, gait deferred Vital Signs Temp Pulse Resp BP Pulse Ox 97.1 F L 78 18 145/82 H 96 03/06/18 11:50 03/06/18 11:50 03/06/18 11:50 03/06/18 11:50 03/06/18 11:50 Oxygen Delivery Method Room Air Weight: 106.5 kg Body Mass Index (BMI) 39.0 Intake and Output for Last 24 Hours Intake Total 1359 / 1359 2226 / 2226 Output Total 700 / 700 Balance 1359 / 1359 1526 / 1526 Laboratory Tests Past 24 Hrs WBC RBC WBC 13.4 H WBC RBC Hgb Hct MCV MCH MCHC RDW RDW Differential Plt Count MPV Immature Gran % (Auto) WBC RBC Hgb Hct MCV MCH MCHC RDW RDW Differential Plt Count MPV Immature Gran % (Auto) POC Glucose POC Glucose 295 H 226 H 249 H POC Glucose 311 H Assessment/Plan The patient is a 47 year old CF with PMH HLD, DM, COPD, hypothyroidism, depression, chronic low back pain, morbid obesity admitted with AMS. Per patient she remembers waking up yesterday (03/05/18) then remembers her fiance telling her that he is taking her to the hospital, she does not remember being brought to the hospital, was admitted for confusion and AMS, found to have BS of 348 and KATLYN with creatinine of 1.59, per patient she started remembering things from last night and at present her encephalopathy has almost resolved, this time it was felt that her symptoms could have been medication induced due to Percocet and the same was discontinued by the hospitalist. She had admission due to similar symptoms about a month ago in January 2018, had normal CT head and MRI brain at that time, it was thought that her symptoms were medication induced due to Lyrica which was discontinued then. Patient has history of migraines and per patient is being treated by her PCP with Topamax, usually has HAs about 3-4 times a week, generalized, with photophobia, phonophobia, visual floaters and nausea, lasting hours. At present denies any SANTANA, visual disturbances, focal motor weakness or sensory loss. Impression Metabolic Encephalopathy Possible Medication induced Plan -Check CT head. Patient does not want to have another MRI brain -Check EEG -Avoid narcotics -Labs reviewed -Further medical management per primary team -GI/DVT prophylaxis -PT/OT -Please call with questions if any -Thank you for allowing us to participate in patient's care and management I spent 60 minutes taking history, doing physical examination, reviewing medical records, coordinating care and counseling the patient. Code Visit Inpatient E AND M: 34775 Init Hosp L3 03/18/18 1456 <Electronically signed by Zoey Joyce MD> Date Zoey Joyce MD Cosigner Signature (if applicable): Date CC: Catarina Joyce MD; Aron Palumbo MD Signed ELECTROENCEPHALOGRAM Observed: 03/18/2018 Status: F Source: KIET 2:56 PM [facility] RE[facility]ORY [facility] Pulmonary Services/Neurology [address] [place] [address] MR#: [id number] Acct: [id number] Name: GELY LACKEY Rep #: [id number] : 1970 47 From: Zoey Joyce MD Referring Dr: Bassem Hathaway MD Status: DIS IN Ordering Dr: Date: Location: [place] [address] Sex: F C - Electroencephalogram Date of service 03/06/18 History EEG is being done in this 47 yr F to rule out seizures EEG Description: This is an 18 channel EEG with 10-20 lead placement system. Bipolar montages, Referential and Circumferential montages were reviewed. Photic stimulation and Hyperventilation were performed. The posterior dominant background rhythm is absent. Photo stimulation did not elicit normal driving response or any abnormal photoparoxysmal response, Hyperventilation did not elicit any abnormal photoparoxysmal response. There is consistent artifact noted in the throughout the recording. Sleep was not identified. There was generalized background slowing in the theta frequency range of 6 Hz. There was intermittent presence of triphasic waves. There was no epileptiform discharges or electrographic seizures noted during this recording. EEG Interpretation This is an abnormal EEG due to the presence of mild to moderate generalized slowing and presence of triphasic waves. This can be seen in generalized cerebral dysfunction in form of metabolic/toxic encephalopathy. Clinical correlation is advised. Artifact present almost throughout the entire EEG recording. There is no epileptiform discharges or electrographic seizures noted during the record. 03/18/18 1456 <Electronically signed by Zoey Joyce MD> Date Zoey Joyce MD CC: Catarina Joyce MD; Bassem Hathaway MD; Aron Palumbo MD Date Dictated: 03/06/181644 Date Transcribed: 03/06/181644 Industrial Engineering Professor: RSR Signed 12 LEAD ELECTROCARDIOGRAM Observed: 03/09/2018 Status: F Source: [place] 10:22 AM [facility] Cardiovascular Services [address] [place] [id number] 12 Lead EKG 03/05/18 1454 MR#: [id number] Acct: [id number] Name: GELY LACKEY Rep #: [id number] : 1970 47 From: Farncis Mckoy MD Attending Dr: Bassem Hathaway MD Status: DIS IN Ordering Dr: Chuck Zacarias MD Date: 03/05/18 Location: [facility] Sex: F C Admitted: 03/05/18 Test Reason : CONFUSION Blood Pressure : / mmHG Vent. Rate : 080 BPM Atrial Rate : 080 BPM P-R Int : 138 ms QRS Dur : 080 ms QT Int : 402 ms P-R-T Axes : 038 031 041 degrees QTc Int : 463 ms Normal sinus rhythm Low voltage QRS Borderline ECG Confirmed by EAN CRABTREE, FRANCIS ([id number]), loan expeditor LINDA IRBY ([id number]) on 03/09/2018 10:22:11 AM Referred By: CRIS Confirmed By:FRANCIS MCKOY MD 03/09/18 1022 Date Francis Mckoy MD CC: Bassem Hathaway MD; Aron Palumbo MD; Chuck Zacarias MD Signed DISCHARGE SUMMARY Observed: 03/06/2018 Status: F Source: KIET 5:52 PM [facility] Medical Records Department [address] [place] [address] Discharge Summary 03/06/18 1737 MR#: [id number] Acct: [id number] Name: GELY LACKEY Rep #: [id number] : 1970 47 From: Milo VAZQUEZ PCP: Aron Palumbo MD Status: ADM IN Y Location: [place] [address] <Milo Delgado - Last Filed: 03/06/18 17:37> Discharge Date and Diagnosis Date of Admission: 03/05/18 Date of Discharge: 03/06/18 - Primary Discharge Diagnosis Acute toxic and metabolic encephalopathy 2/2 polypharmacy KATLYN 2/2 dehydration Chronic pain COPD no exacerbation HLD Tobacco abuse Hx Cervical CA Obesity Chronic leukocytosis DMt2 Hypothyroidism Anxiety/Depression - Secondary Discharge Diagnosis Chronic Problems (Last Reviewed 12/12/17 @ 16:04 by Ting Denis) HLD (hyperlipidemia) (Chronic) Tobacco use (Chronic) Obesity (BMI 30-39.9) (Chronic) Morbid obesity (Chronic) Chronic low back pain (Chronic) COPD (chronic obstructive pulmonary disease) (Chronic) Hypertension (Chronic) Cervical cancer (Chronic) Hospital Course and Treatment Imaging Results: US/Liver IMPRESSION: The liver is markedly enlarged with fatty infiltration. There is no ascites. There are no acute abnormalities. CT/Brain/Head without Contrast IMPRESSION: No acute intracranial abnormalities or changes. EEG Interpretation This is an abnormal EEG due to the presence of mild to moderate generalized slowing and presence of triphasic waves. This can be seen in generalized cerebral dysfunction in form of metabolic/toxic encephalopathy. Clinical correlation is advised. Artifact present almost throughout the entire EEG recording. There is no epileptiform discharges or electrographic seizures noted during the record. Consults: Isiah - neuro Operations: None Procedures: Electroencephalogram Summary of Care Provided: The patient is a 47 year old F with a hx of chronic pain and recent admission for toxic and metabolic encephalopathy 2/2 polypharmacy, HLD, HTN, DMt2, Obesity, hypothyroidism, chronic leukocytosis, COPD, nicotine abuse, who presented to the ER with increased lethargy at home and confusion. The patient was brought to the ER and was admitted with concern for stroke. She had been here about 1 month prior with a similar presentation, and at that time her lyrica was discontinued. She had had an MRI of the brain which was negative. This time in the ER she was found to have KATLYN with increased BUN and Creatinine. She was placed on fluids and admitted to the ER. We attempted to obtain an MRI the following day but this was refused by the patient. A CT of the brain was negative. Her renal function improved overnight. Her oxycodone was stopped. Her mentation improved. Neuro was consulted. An EEG was obtained which was abnormal with generalized slowing c/w encephalopathy see above. Tox screen was positive for cannabinoids. Liver US was obtained which showed fatty liver changes, ammonia was negative. Her symptoms were felt to be due to the multiple sedating and psychotropic agents that she is on in combination with renal failure accumulating to toxic levels making her lethargic. As her mentation had improved by the following day both in terms of KATLYN and alertness, she was discharged home in stable condition. She must discontinue oxycodone at this time, and additionally I have advised discontinuation of melatonin and hydroxizine. She will need to follow up with her PCP and with neurology. I have advised her to have a BMP in 3 days to reassess her renal function. This patient was seen by Milo Delgaod PA-C under the supervision of Doctor Hathaway. [] Discharge Diet: Low fat/ Low Cholesterol, 1800 Calorie Control Diet, 2000 mg Sodium Diet Discharge Activity: Return to Normal Activity Home Medications: Medications to take at Discharge Aspirin E.C. [Ecotrin] 81 mg PO DAILY 03/05/18 Atorvastatin Calcium [Lipitor] 40 mg PO QHS 03/05/18 Cetirizine HCl [All Day Allergy] 10 mg PO DAILY 03/05/18 Cholecalciferol (Vitamin D3) [Vitamin D3] 5,000 unit PO DAILY 03/05/18 Duloxetine HCl 60 mg PO DAILY 03/05/18 Febuxostat [Uloric] 80 mg PO DAILY 03/05/18 Fentanyl 25 mcg TD Q72H 03/05/18 Fluticasone/Vilanterol [Breo Ellipta 200-25 Mcg INH] 1 puff IH DAILY 03/05/18 Furosemide [Lasix] 20 mg PO DAILY PRN 03/05/18 Irbesartan [Avapro] 75 mg PO QHS 03/05/18 Levothyroxine [Synthroid] 88 mcg PO DAILY 03/05/18 Lidocaine [Lidoderm Patch] 1 patch TOPICAL DAILY 03/05/18 Metformin HCl [Glucophage] 1,000 mg PO BIDCM 03/05/18 Montelukast Sodium [Singulair] 10 mg PO DAILY 03/05/18 Omeprazole [Prilosec] 20 mg PO DAILY 03/05/18 Potassium Citrate [Potassium Citrate ER] 15 meq PO DAILY PRN 03/05/18 Sodium Chloride [Saline Nasal [place]] 1 spray NS Q2H PRN 03/05/18 Primary Care Physician: Aron Palumbo MD [Primary Care Provider] - Please follow up with your Primary Care Physician in: 1-2 weeks Please Follow Up With: Zoey Joyce MD When: 2-3 weeks Disposition: Home Minutes spent on discharge:: 35 Patient Condition:: Stable Medical Necessity - Tobacco Use Smoking Status: Current every day smoker Tobacco Use: Cigarettes Meaningful Use Info Meaningful Use Diagnoses (Choose all that apply): None applicable <Bassem Hathaway - Last Filed: 03/06/18 17:52> Discharge Date and Diagnosis - Secondary Discharge Diagnosis Chronic Problems (Last Reviewed 12/12/17 @ 16:04 by Ting Denis) HLD (hyperlipidemia) (Chronic) Tobacco use (Chronic) Obesity (BMI 30-39.9) (Chronic) Morbid obesity (Chronic) Chronic low back pain (Chronic) COPD (chronic obstructive pulmonary disease) (Chronic) Hypertension (Chronic) Cervical cancer (Chronic) Hospital Course and Treatment Imaging Results: 03/06/18 14:24 Brain/Head without Contrast [CT] Urgent Summary of Care Provided: In brief, patient is a 47-year-old lady with chronic pain syndrome admitted with altered mental status. Patient admitted to a monitored bed for subsequent evaluation Assessment: 1. Acute encephalopathy secondary to toxic encephalopathy from suspected accidental drug overdose and metabolic encephalopathy from her kidney injury 2. Acute kidney injury 3. Chronic pain syndrome 4. Hypothyroidism 5. GERD 6. Obesity with BMI of 39.1 7. Diabetes mellitus type 2 8. History of cervical CA 9. Tobacco dependence 10. COPD 11. Depression with anxiety Hospital course as elicited above by Milo Delgado PA-C Code Visit Inpatient E AND M: 22036 Disch Hosp 03/06/181750 <Electronically signed by Milo VAZQUEZ> Date Milo VAZQUEZ 03/06/181751<Electronically signed by Bassem Hathaway MD> Cosigner Signature (if applicable): Date Bassem Hathaway MD CC: GEORGE Delgado; Bassem Hathaway MD; Aron Palumbo MD Signed DISCHARGE INSTRUCTION Observed: 03/06/2018 Status: F Source: [place] 5:37 PM [facility] REPOSITORY [facility] Medical Records Department [address] [place] [address] Instructions for Home/Discharge Instructions 03/06/18 1736 MR#: [id number] Acct: [id number] Name: GELY LACKEY Rep #: [id number] : 1970 47 From: Milo VAZQUEZ PCP: Aron Palumbo MD Status: ADM IN - Discharge Diagnoses Current Active Problems: Current Active and Chronic Problems (Last Reviewed 12/12/17 @ 16:04 by Ting Denis) HLD (hyperlipidemia) (Chronic) Tobacco use (Chronic) Obesity (BMI 30-39.9) (Chronic) You will use the following diet at home:: Calorie/Carbohydrate Controlled (specify 1200, 1400, etc) - 1800 laura /day, Cardiac Your food should be the consistency of: Regular Your liquids should be the consistency of: Regular/Thin Discharge Activity: Return to Normal Activity Allergies/Adverse Reactions: Allergies codeine Allergy (Verified 03/05/18 14:00) Rash nabumetone [From Relafen] Allergy (Verified 03/05/18 14:00) Rash Sulfa (Sulfonamide Antibiotics) Allergy (Verified 03/05/18 14:00) Rash pregabalin [From Lyrica] Adverse Reaction (Verified 03/05/18 17:25) confusion/delirium CONFUSION/DELIRIUM albuterol Adverse Reaction (Uncoded 03/05/18 14:00) Laryngospasms Medications to take at Discharge Aspirin E.C. [Ecotrin] 81 mg PO DAILY 03/05/18 Atorvastatin Calcium [Lipitor] 40 mg PO QHS 03/05/18 Cetirizine HCl [All Day Allergy] 10 mg PO DAILY 03/05/18 Cholecalciferol (Vitamin D3) [Vitamin D3] 5,000 unit PO DAILY 03/05/18 Duloxetine HCl 60 mg PO DAILY 03/05/18 Febuxostat [Uloric] 80 mg PO DAILY 03/05/18 Fentanyl 25 mcg TD Q72H 03/05/18 Fluticasone/Vilanterol [Breo Ellipta 200-25 Mcg INH] 1 puff IH DAILY 03/05/18 Furosemide [Lasix] 20 mg PO DAILY PRN 03/05/18 Hydroxyzine HCl 25 mg PO Q8H PRN PRN 03/05/18 Irbesartan [Avapro] 75 mg PO QHS 03/05/18 Levothyroxine [Synthroid] 88 mcg PO DAILY 03/05/18 Lidocaine [Lidoderm Patch] 1 patch TOPICAL DAILY 03/05/18 Melatonin 1 mg PO 1700,2100 03/05/18 Metformin HCl [Glucophage] 1,000 mg PO BIDCM 03/05/18 Montelukast Sodium [Singulair] 10 mg PO DAILY 03/05/18 Omeprazole [Prilosec] 20 mg PO DAILY 03/05/18 Potassium Citrate [Potassium Citrate ER] 15 meq PO DAILY PRN 03/05/18 Sodium Chloride [Saline Nasal [place]] 1 spray NS Q2H PRN 03/05/18 Primary Care Physician: Aron Palumbo MD [Primary Care Provider] - Please follow up with your Primary Care Physician in: 1-2 weeks Please Follow Up With: Zoey Joyce MD When: 2-3 weeks Proposed Discharge Date: 03/06/18 03/06/18 1602 <Electronically signed by Milo VAZQUEZ> Date Milo VAZQUEZ CC: Catarina Joyce MD; Aron Palumbo MD BEDSIDE GLUCOSE Collected: 03/06/2018 Status: F Source: KIET 5:03 PM [facility] REPOSITORY TYPE CODE TESTS RESULT OUT OF REFERENCE UNITS RANGE LAB L501.080 70-110 mg/dL High BEDSIDE GLU 268 Result Comment: MANAGEMENT OF PATIENT CARE PER NURSING PROTOCOL Performed By: #### L501.080 #### [facility] Point of Care [address] [place] [address] BRAIN/HEAD WITHOUT Observed: 03/06/2018 Status: F Source: KIET CONTRAST 2:26 PM [facility] REPOSITORY [facility] Imaging Services [address] [place] [address] Brain/Head without Contrast MR#: [id number] Acct: [id number] Name: GELY LACKEY Deborah Rep #: [id number] : 1970 F 47 From: Wilma Perez MD PCP: Aron Palumbo MD Status: ADM IN Study: Brain/Head without Contrast Date of Exam: 03/06/18 Exam# [id number] Ordering Dr: Milo Delgado STUDY: CT BRAIN WITHOUT CONTRAST REASON FOR EXAM: Female, 47 years old. Alteration of awareness RADIATION DOSAGE (If Supplied By Facility): CTDIvol = ( 44.99 ) mGy, DLP = ( 1490.98 ) mGycm TECHNIQUE: Transaxial CT imaging of the brain was performed without administration of intravenous contrast material. Individualized dose optimization techniques were used for this CT. COMPARISON: January 29, 2018 FINDINGS: The soft tissues are unremarkable. The osseous structures are unremarkable. Normal size ventricles and extra-axial spaces for the patient's age. The white matter tracts are unremarkable. The basal ganglia and thalami are unremarkable. No abnormalities are seen in the brainstem. The cerebellum is unremarkable. Incidentally noted is an empty sella. There is no intracranial hemorrhage. There are no findings of acute ischemia. The visualized sinuses are unremarkable. CT/Brain/Head without Contrast IMPRESSION: No acute intracranial abnormalities or changes. Electronically Signed: Wilma Perez MD at 16:30 EDT Tel Direct: [phone], Service support , CC: GEORGE Delgado; Aron Palumbo MD Industrial Engineering Professor: Signed BEDSIDE GLUCOSE Collected: 03/06/2018 Status: F Source: KIET 11:48 AM [facility] REPOSITORY TYPE CODE TESTS RESULT OUT OF REFERENCE UNITS RANGE LAB L501.080 70-110 mg/dL High BEDSIDE GLU 295 Result Comment: MANAGEMENT OF PATIENT CARE PER NURSING PROTOCOL Performed By: #### L501.080 #### [facility] Point of Care [facility] [place] [address] BASIC METABOLIC Collected: 03/06/2018 Status: F Source: HACKBERRY PROFILE (BMP) 11:40 AM [facility] REPOSITORY TYPE CODE TESTS RESULT OUT OF RANGE REFERENCE UNITS LAB L501.0100 74-106 mg/dL High GLU 274 Result Comment: Glucose result greater than or equal to 200 mg/dL suggests DIABETES MELLITUS per A.D.A. criteria. Please note revised GLUCOSE reference range effective 2017. LAB L501.1000 7-18 mg/dL Normal BUN 16 LAB L501.1100 0.55-1.02 mg/dL High CREAT,SERUM 1.06 Result Comment: The validity of the calculated GFR AND GFRAA in patients over 70 years has not been determined. Clinical correlation is essential. LAB L501.1110 >60 mL/min Low EST GFR 59 Result Comment: Non- GFR Calc LAB L501.1115 >60 mL/min Normal EST GFR - AA 71 Result Comment: GFR Calc LAB L501.1255 ml/min Normal Estimated CRCL 58.40 LAB L501.1300 10-20 RATIO Normal BUN/CRE 15.1 LAB L501.2200 8.5-10 mg/dL Low .1 CA 8.3 LAB L501.5300 136-14 mmol/L Normal 5 NA 137 LAB L501.5600 3.5-5. mmol/L Normal 1 K 3.8 LAB L501.5900 98-107 mmol/L Normal CL 107 LAB L501.6100 21.0-3 mmol/L Normal 2.0 CO2 21.0 LAB L501.6200 5-15 Normal GAP 9 Performed By: #### L500.2500 #### [facility] [address] [facility] [address] [place], [place], [address] BEDSIDE GLUCOSE Collected: 03/06/2018 Status: F Source: KIET 7:00 AM [facility] REPOSITORY TYPE CODE TESTS RESULT OUT OF REFERENCE UNITS RANGE LAB L501.080 70-110 mg/dL High BEDSIDE GLU 226 Result Comment: MANAGEMENT OF PATIENT CARE PER NURSING PROTOCOL Performed By: #### L501.080 #### [facility] Point of Care [address] [facility] [place], [place] [address] URINE DRUG SCREEN Collected: 03/06/2018 Status: F Source: KIET (VISTA) 6:30 AM [facility] REPOSITORY Order Comment: List of Drugs Taken or Suspected? UNK TYPE CODE TESTS RESULT OUT OF RANGE REFERENCE UNITS LAB L505.0075 TO BE Normal CONFIRMED Result Comment: CONFIRMATORY TESTING FOR ALL POSITIVE URINE DRUG SCREEN RESULTS WILL ONLY BE SENT OUT UPON PHYSICIAN ORDER. VISTA Urine Drug Screen methods provide only preliminary analytical test results. A more specific alternate chemical method must be used in order to obtain a confirmed analytical result. Gas chromatography/mass spectrometery (GC/MS) is the preferred confirmatory method. Clinical consideration and professional judgement should be applied to any drug of abuse test result, particularly when preliminary positive results are used. URINE TCA TESTING MUST BE ORDERED SEPARATELY. USE TEST MNEMONIC: [facility] LAB L505.5005 VISTA UDS PH 5 Normal LAB L505.5015 <1000 ng/mL AMPHETAMINES Normal NEGATIVE LAB L505.5025 < 200 ng/mL BARBITIURATES Normal NEGATIVE LAB L505.5035 < 200 ng/mL BENZODIAZIPINE Normal NEGATIVE LAB L505.5045 < 300 ng/mL COCAINE Normal NEGATIVE LAB L505.5055 < 500 ng/mL ECSTACY Normal NEGATIVE LAB L505.5065 < 300 ng/mL METHADONE Normal NEGATIVE LAB L505.5075 < 300 ng/mL OPIATES Normal NEGATIVE LAB L505.5085 < 25 ng/mL PCP Normal NEGATIVE LAB L505.5095 < 50 High ng/mL THC POSITIVE Performed By: #### L505.5000 #### [facility] [address] [place], [place], [id number] URINALYSIS, COMPLETE Collected: 03/06/2018 Status: F Source: HACKBERRY 6:30 AM [facility] REPOSITORY Order Comment: How was Urine Obtained? PHOTOGRAPHER FINISH TO SPECIFY TYPE CODE TESTS RESULT OUT OF RANGE REFERENCE UNITS LAB L400.3000 Yellow COLOR Normal Yellow LAB L400.3050 Clear Normal CLARITY Clear LAB L400.3200 Normal mg/dl Normal GLUCOSE, UR Normal LAB L400.3300 Negative mg/dL Normal BILIRUBIN URINE Negative LAB L400.3400 Negative mg/dl Normal KETONE UR Negative LAB L400.3465 1.002-1.030 Normal SP.GR. DIPSTX 1.020 LAB L400.3550 5.0 - 8.0 pH UR Normal 6.0 LAB L400.3600 Negative mg/dl High PROT 15 DIPSTX LAB L400.3700 Normal mg/dl Normal UROBILI Normal LAB L400.3750 Negative Normal NITRITE UR Negative LAB L400.3780 Negative /ul Normal OCCULT BLOOD-UR Negative LAB L400.3800 Negative /ul LEUK Normal ESTERASE Negative LAB L400.4050 0-5 /hpf WBC Normal 0-5 SEEN LAB L400.4100 0-5 /hpf 0 Normal RBC-UA SEEN LAB L400.4150 5-10 /hpf SQUAM Normal EPI 0-5 SEEN LAB L400.4300 None Seen /hpf 0 Normal BACTERIA SEEN LAB L400.4350 <or=2+ /hpf 0 Normal MUCUS, URINE SEEN Performed By: #### L400.0001 #### [facility] [address] [place], [place], [id number] CREATININE, URINE Collected: 03/06/2018 Status: F Source: HACKBERRY (RANDOM) 6:30 AM [facility] REPOSITORY TYPE CODE TESTS RESULT OUT OF RANGE REFERENCE UNITS LAB L501.1200 NO RANGE EST. mg/dL Normal UR CREAT 134.00 Performed By: #### L501.1200 #### [facility] [address] [place], [address] URINE SODIUM Collected: 03/06/2018 Status: F Source: HACKBERRY 6:30 AM [facility] REPOSITORY TYPE CODE TESTS RESULT OUT OF RANGE REFERENCE UNITS LAB L501.5500 Not Establ. mmol/L Normal UR NA 138 Performed By: #### L501.5500 #### [facility] [address] [place], [address] CBC W/DIFF, AUTOMATED Collected: 03/06/2018 Status: F Source: HACKBERRY 5:20 AM [facility] REPOSITORY TYPE CODE TESTS RESULT OUT OF RANGE REFERENCE UNITS LAB L100.1000 4.4-11.0 K/mm3 High WBC 13.4 LAB L100.1200 4.2-5.4 M/mm3 Low RBC 4.05 LAB L100.1300 12.0-15.0 g/dl Normal HGB 12.2 LAB L100.1400 37-47 % Low HCT 35.6 LAB L100.1500 81-99 fL Normal MCV 87.9 LAB L100.1600 27.0-32.0 pg Normal MCH 30.1 LAB L100.1700 32-36 g/gl Normal MCHC 34.3 LAB L100.1810 11.6-14.6 % Normal RDW CV 13.9 LAB L100.1820 35.1-43.9 fl High RDW SD 44.7 LAB L100.1900 150-450 K/mm3 Normal PLT 327 LAB L100.2000 6.2-12.0 fl Normal MPV 9.7 LAB L100.2100 47-70 % Normal NEUT% 56.1 LAB L100.2200 19-41 % Normal LY% 36.4 LAB L100.2300 0-10 % Normal MONO% 6.1 LAB L100.2400 0-5 % Normal EO% 1.0 LAB L100.2500 0-1 % Normal BASO% 0.3 LAB L100.2550 0.0-0.9 % Normal IM GRAN % 0.100 Result Comment: IG% - Immature Granulocytes (promyelocytes, myelocytes and metamyelocytes) > 1% indicates that a LEFT SHIFT is Present. LAB L100.2620 2.0-7.7 X10 3/uL Normal Absolute Neut 7.5 LAB L100.2720 0.83-4.51 X10 3/ul High Absolute Lymph 4.88 Performed By: #### L100.0100 #### [facility] [address] [place], [place], [address] LIPID PROFILE Collected: 03/06/2018 Status: F Source: KIET 5:20 AM [facility] REPOSITORY TYPE CODE TESTS RESULT OUT OF RANGE REFERENCE UNITS LAB L501.4900 200 mg/dL Normal CHOL 155 Result Comment: <200 mg/dL Desirable 200-240 mg/dL Borderline >240 mg/dL High Risk LAB L501.5000 mg/dL High TRIG 345 Result Comment: The drugs N-Acetylcysteine and Metamizole may falsely depress this assay. Serum Triglycerides Reference Interval Normal <150 mg/dL Borderline high 150 - 199 mg/dL High 200 - 499 mg/dL Very High > or = 500 mg/dL LAB L501.6400 mg/dL Low HDL 29 Result Comment: The drugs N-Acetylcysteine and Metamizole may falsely depress this assay. Reference Range HDL <40 mg/dL Low HDL Cholesterol HDL >or= 60 mg/dL High HDL Cholesterol LAB L501.6500 0-130 mg/dL Normal LDL 57 LAB L501.6600 5-40 mg/dL High VLDL 69 Performed By: #### L500.4100 #### [facility] [address] [facility] [place], [place], [id number] BEDSIDE GLUCOSE Collected: 03/05/2018 Status: F Source: KIET 10:50 PM [facility] REPOSITORY TYPE CODE TESTS RESULT OUT OF REFERENCE UNITS RANGE LAB L501.080 70-110 mg/dL High BEDSIDE GLU 249 Result Comment: MANAGEMENT OF PATIENT CARE PER NURSING PROTOCOL Performed By: #### L501.080 #### [facility] Point of Care [address] [place] [address]. [place], [place] [address] HEMOGLOBIN A1C Collected: 03/05/2018 Status: F Source: KIET 5:06 PM [facility] REPOSITORY TYPE CODE TESTS RESULT OUT OF RANGE REFERENCE UNITS LAB L501.9985 4.2-6.3 % High HGB A1C 8.3 Performed By: #### L501.9985 #### [facility] [address] [place], [address] AMMONIA Collected: 03/05/2018 Status: F Source: KIET 5:06 PM [facility] REPOSITORY TYPE CODE TESTS RESULT OUT OF RANGE REFERENCE UNITS LAB L503.5510 11-32 umol/L Normal AMMONIA 22.0 Performed By: #### L503.5510 #### [facility] [address] [place], [address] LIPASE Collected: 03/05/2018 Status: F Source: KIET 5:06 PM [facility] REPOSITORY TYPE CODE TESTS RESULT OUT OF RANGE REFERENCE UNITS LAB L501.2450 73-393 U/L Normal LIPASE 154 Performed By: #### L501.2450, L501.5200, L501.9520 #### [facility] [address] [place], [address] MAGNESIUM Collected: 03/05/2018 Status: F Source: KIET 5:06 PM [facility] REPOSITORY TYPE CODE TESTS RESULT OUT OF RANGE REFERENCE UNITS LAB L501.5200 1.6-2.6 mg/dL Normal MG 2.0 Performed By: #### L501.2450, L501.5200, L501.9520 #### [facility] [address] [place], [address] THYROID STIM HORMONE Collected: 03/05/2018 Status: F Source: KIET (TSH) 5:06 PM [facility] REPOSITORY TYPE CODE TESTS RESULT OUT OF RANGE REFERENCE UNITS LAB L501.9520 0.358-3.74 uIU/mL Normal TSH 2.48 Performed By: #### L501.2450, L501.5200, L501.9520 #### [facility] [address] [place], [address] BEDSIDE GLUCOSE Collected: 03/05/2018 Status: F Source: KIET 4:57 PM [facility] REPOSITORY TYPE CODE TESTS RESULT OUT OF REFERENCE UNITS RANGE LAB L501.080 70-110 mg/dL High BEDSIDE GLU 311 Result Comment: MANAGEMENT OF PATIENT CARE PER NURSING PROTOCOL Performed By: #### L501.080 #### [facility] Point of Care [address] [place] [address] EMERGENCY DEPARTMENT Observed: 03/05/2018 Status: F Source: HACKBERRY SUMMARY 4:38 PM [facility] REPOSITORY [facility] Medical Records Department [address] [place] [address] Emergency Department Summary 03/05/18 1531 MR#: [id number] Acct: [id number] Name: GELY LACKEY Rep #: [id number] : 1970 47 From: Chuck Zacarias MD PCP: Aron Palumbo MD Status: ADM IN - ER Visit Summary Date of Service: 03/05/18 Chief Complaint: Confusion and decreased mental status History of Present Illness: The patient is a 47 F past medical history of insulin-dependent diabetes and chronic back pain. Patient was admitted approximately 1 month ago secondary to confusion and mental status change. At that time had an extensive workup which was negative including CT of the brain, MRI and neurology consultation. They felt it may be secondary to Lyrica but according to her soon-to-be [id number] is in the room she has been off the Lyrica since that time. She denies any falls, head injury or fever. Physical Examination: Middle-aged female no acute distress. Vital signs are stable afebrile. She does not look septic or toxic. She does seem to be confused. No smell of alcohol. H EENT exam unremarkable. Multiple piercings. No trauma to the face or scalp. Neck nontender no meningismus. No lymphadenopathy. Lungs clear to auscultation bilaterally. Heart regular rhythm no murmur. Abdomen soft and nontender. Moving all 4 extremities. Neurologically she is confused. She thinks it is Monday not Monday. She does not answer the month or year. She does follow commands. No facial droop. Test Results: CBC shows a white count of 14.2 however she has had elevated white counts between 12 and 25 of the last year. Normal H AND H. Electrolytes are unremarkable she does have an elevated blood sugar of 348. BUN 23 creatinine 1.59. Which is a change in the most recent creatinine but she has had higher in the past. She had a prior CT and MRI chose not to repeat those at this time. Urinalysis and tox screen are pending. Her last eye screen was negative. Emergency Department Course and Treatment: Repeat exam at 1527 is unchanged. I spoke to her soon-to-be [id number] and explained her she would be admitted for further evaluation and workup. I spoke to Dr. Hernandez the hospitalist who is going to admit the patient. Treatment Plan: [] Disposition: Admission Impression: Acute mental status change with confusion of uncertain etiology Hyperglycemia with a history of insulin-dependent diabetes Acute renal injury with elevated creatinine This note was generated with [employer] dictation software. It may contain incorrect words, spelling, and punctuation that were not noted in review of the chart prior to signing ED Disposition - Plan for ED Patient: Chief Complaint: Confusion Referrals: Aron Palumbo MD [Primary Care Provider] - What to do if you have Problems For any increased pain, shortness of breath, bleeding, nausea or vomiting, chest pain, or any unexpected problems, contact your Primary Care Provider. Call [facility] ([phone]) or report to the closest Emergency Room. Call 911 if necessary. 03/05/18 1638 <Electronically signed by Chuck Zacarias MD> Date Chuck Zacarias MD Cosigner Signature (If Indicated): Date CC: Aron Palumbo MD LIVER Observed: 03/05/2018 Status: F Source: HACKBERRY 4:29 PM [facility] REPOSITORY [facility] Imaging Services [facility] [place] [address] Liver MR#: [id number] Acct: [id number] Name: GELY LACKEY Rep #: [id number] : 1970 F 47 From: Wilma Perez MD PCP: Aron Palumbo MD Status: ADM IN Study: Liver Date of Exam: 03/05/18 Exam# [id number] Ordering Dr: Miranda Hernandez STUDY: ABDOMINAL ULTRASOUND - RIGHT UPPER QUADRANT REASON FOR VISIT: Female, 47 years old. Right upper quadrant pain TECHNIQUE: Transverse and longitudinal imaging of the right upper quadrant was performed using real-time ultrasound. COMPARISON: CT abdomen and pelvis dated December 13, 2017 FINDINGS: Liver: The liver measures at least 23 cm. There is increased echogenicity of the liver. The direction of portal flow is hepatopetal. There is no demonstrated mass in the liver. Gallbladder: The patient has had prior cholecystectomy. Common Bile Duct (C.B.D.): The common bile duct measures 7.7 mm. Pancreas: The visualized pancreas is within normal limits. There is no demonstrated mass in the pancreas. Right Kidney: The right kidney measures 13.8 cm. The right cortex measures 1.3 cm. There is no demonstrated mass in the right kidney. There is no dilatation of the collecting system. There is no demonstrated free fluid. US/Liver IMPRESSION: The liver is markedly enlarged with fatty infiltration. There is no ascites. There are no acute abnormalities. Electronically Signed: Wilma Perez MD at 21:27 EDT Tel Direct: [phone], Service support , CC: Miranda Hernandez; Aron Palumbo MD Industrial Engineering Professor: Signed HISTORY AND PHYSICAL Observed: 03/05/2018 Status: F Source: HACKBERRY EXAM 4:11 PM [facility] REPOSITORY [facility] Medical Records Department [address] [place] [id number] History and Physical 03/05/18 1527 MR#: [id number] Acct: [id number] Name: GELY LACKEY Rep #: [id number] : 1970 47 From: Miranda Hernandez PCP: Aron Palumbo MD Status: ADM IN Y Location: [place] [address]-1 Problem List (1) Encephalopathy acute Status: Acute (2) HLD (hyperlipidemia) Status: Chronic Qualifiers: Hyperlipidemia type: unspecified Qualified Code(s): E78.5 - Hyperlipidemia, unspecified (3) Tobacco use Status: Chronic (4) Obesity (BMI 30-39.9) Status: Chronic (5) Chronic low back pain Status: Chronic Qualifiers: Back pain laterality: unspecified Sciatica presence: unspecified whether sciatica present Qualified Code(s): M54.5 - Low back pain; G89.29 - Other chronic pain (6) COPD (chronic obstructive pulmonary disease) Status: Chronic Qualifiers: COPD type: unspecified COPD Qualified Code(s): J44.9 - Chronic obstructive pulmonary disease, unspecified (7) Hypertension Status: Chronic Qualifiers: Hypertension type: essential hypertension Qualified Code(s): I10 - Essential (primary) hypertension (8) Cervical cancer Status: Chronic Qualifiers: Malignant neoplasm of cervix location: unspecified location Qualified Code(s): C53.9 - Malignant neoplasm of cervix uteri, unspecified History of Present Illness Date of Admission: 03/05/18 Chief Complaint: Confusion The patient is a 47 y/o F w/ PMHx: Obesity, Chronic Pain Syndrome, HTN, HLD, History of Prior Cholecystitis w/ ruptured gallbladder, Chronic COPD, Tobacco use, Anxiety and Depression, Hypothyroidism. Allergic Rhinitis, Diabetes mellitus type II who presents to the [facility] ED on 03/05/18 with history of onset increased confusion, lethargy and noted serial movements per finance and qchnzj-pa-bzq over the last 12-24 hours, similar in appearance to recent admission 01/29/18 with work-up at that time and neurology evaluation unremarkable and felt likely secondary to lyrica which was discontinued and she has not restarted. In the ED work-up includes T 97.7, HR 92, BP 151/99, RR 16, 98% on RA, CBC w/ WBC 14.2, Hgb 13.7, Plts 356 with L shift, CMP w/ BUN/Cr 23/1.59, glucose 348, pending UDS and UA per ED, CT head deferred per ED given recent admission w/ MRI Brain secondary to similar presentation w/ noted chronic ischemic changes and possible prior CVA with neurology recommendation at that time for continued asa therapy. Past Medical History Past Medical History (Chronic Problems): Chronic Problems (Last Reviewed 12/12/17 @ 16:04 by Ting Denis) HLD (hyperlipidemia) (Chronic) Tobacco use (Chronic) Obesity (BMI 30-39.9) (Chronic) Morbid obesity (Chronic) Chronic low back pain (Chronic) COPD (chronic obstructive pulmonary disease) (Chronic) Hypertension (Chronic) Cervical cancer (Chronic) Allergies codeine Allergy (Verified 03/05/18 14:00) Rash nabumetone [From Relafen] Allergy (Verified 03/05/18 14:00) Rash Sulfa (Sulfonamide Antibiotics) Allergy (Verified 03/05/18 14:00) Rash pregabalin [From Lyrica] Adverse Reaction (Verified 03/05/18 14:00) Other CONFUSION/DELIRIUM albuterol Adverse Reaction (Uncoded 03/05/18 14:00) Laryngospasms Home Medications: Ambulatory Orders Medication Instructions Recorded Cetirizine HCl [All Day Allergy] 10 mg PO DAILY 03/05/18 Cholecalciferol (Vitamin D3) 5,000 unit PO DAILY 03/05/18 Surgical History: - - Carpal tunnel release, 2, cholecystectomy. 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 Lives: Spouse/ Significant Other Smoking Status: Current every day smoker - 1 pack per day tobacco use. Tobacco Use: Cigarettes Alcohol: None Drugs: None - *Family History Maternal History Items: Diabetes Paternal History Items: No pertinent history Review of Systems Constitutional: Reports: Anorexia, Malaise, Weakness, Fatigue. Denies: Chills, Fever, Weight Change HEENT: Denies: Head Aches, Sinus Congestion, Sinus Drainage Cardiovascular: Denies: Chest Pain, Palpitations Respiratory: Denies: Cough, Shortness of breath at rest, Sputum production Gastrointestinal: Reports: Abdominal Pain. Denies: Nausea, Vomiting Genitourinary: Denies: Dysuria Musculoskeletal: Denies: Joint Pain, Joint Tenderness Skin: Denies: Rash, Wounds Neurological: Reports: Confusion. Denies: Focal weakness, Numbness, Tingling Psychiatric: Reports: Anxiety, Depression. Denies: Homicidal Ideations, Suicidal Ideations Hematologic/ Lymphatic: Denies: Easy Bruising, Easy Bleeding VTE Information - Inpt Only VTE Present on Admission: No VTE Mechan Device Prophylaxis: SCD's VTE Pharm Prophylaxis ordered?: Yes Subjective: Seated upright in the ED bed, fatigued appearance, odd to the right upper extremity movements. Objective: Physical Examination: General: awake, not alert, oriented to self, not to date, month, year, lethargic appearing, intermittently cooperative, seated upright in bed in no apparent distress. Skin: normal color, turgor, no icterus, cyanosis. HEENT: AT/NC, EOMI, PERRLA, dry MM, no carotid bruits or JVD noted. Lungs: Diminished BS BL, > bases, poor effort, no rales, ronchi or wheezing. Heart: Regular rate and rhythm; no gallop, rub audible. Abdomen: soft, obese, TTP RUQ region, ND, mildly hyperactive BS, difficult to assess HSM secondary to habitus and discomfort. Extremities: no cyanosis, clubbing, or edema. Neurological: patient awake, not markedly alert, lethargic, oriented as noted; cognitive function not baseline intact; pupils equally reactive to light and accomodation; cranial nerves II-XII grossly normal, moving all 4 extremities, ongoing repetitive movements of the right upper extremity, strength difficult to assess but moderately to severely globally decreased, unable to delineate any focal deficits, negative babinski. Psychiatric: affect appears flat, lethargic, no acute evidence of depressive or anxiety feelings. - Physical Exam Vital Signs Temp Pulse Resp BP Pulse Ox 97.7 F L 83 16 111/78 94 03/05/18 13:52 03/05/18 14:03 03/05/18 14:03 03/05/18 14:03 03/05/18 14:03 Oxygen Delivery Method Room Air Weight: 220 lb Body Mass Index (BMI) 36.6 Finger Stick Blood Glucose 366 Laboratory Tests Past 24 Hrs WBC 14.2 H RBC 4.58 Hgb 13.7 Hct 40.0 MCV 87.3 POC Glucose POC Glucose 366 H Assessment/Plan The patient is a 47 y/o F w/ PMHx: Obesity, Chronic Pain Syndrome, HTN, HLD, History of Prior Cholecystitis w/ ruptured gallbladder, Chronic COPD, Tobacco use, Anxiety and Depression, Hypothyroidism. Allergic Rhinitis, Diabetes mellitus type II who presents to the [facility] ED on 03/05/18 with history of onset increased confusion, lethargy and noted serial movements per finance and [id number] over the last 12-24 hours, similar in appearance to recent admission 01/29/18 with work-up at that time and neurology evaluation unremarkable and felt likely secondary to lyrica which was discontinued and she has not restarted. (1) Acute Encephalopathy, Unclear Etiology: Recent admission w/ Neurology evaluation, MRI and ECHO. Given severity of appearance and recurrence will admit to PCU, will obtain repeat MRI Brain, MRA Head and Neck, defer ECHO as already recently performed, PT/OT/Speech/Nutrition, consult Neurology for evaluation, allow permissive HTN until MRI performed given unclear etiology and prior abnormal appearing MRI w/ chronic ischemic change and possible prior old CVA, maintain on asa, add plavix until MRI resulted given unclear etiology and possible prior CVA on recent MRI, add statin w/ AM FLP, fall precautions. Mag, TSH pending. EEG requested. ABG requested. Pending UA, UDS. Ammonia pending. (2) Acute kidney injury: Unclear etiology, possible poor intake secondary to confusion and medications concurrently. Admission BUN/Cr 23/1.59, prior baseline creatinine noted to be 0.7. Will continue to hydrate, hold nephrotoxic medications and repeat chemistry in AM. Will obtain FeNa assessment. (3) Chronic Leukocytosis: Noted routine leukocytosis, unclear specific etiology, admission CBC w/ WBC 14.2, appears baseline, does have mild abdominal RUQ pain with palpation, history of GB rupture and cholecystitis, will obtain abdominal US, repeat CBC in AM, UA pending, obtain CXR. (4) Chronic COPD: ATC duonebs, PRN albuterol, HOB, IS parameters, ABG pending as noted above. (5) Tobacco Abuse: Encouraged cessation, inpatient consultation per RT, NR if desired. (6) Diabetes mellitus type II: Hold oral home regimen, ADA diet if passes swallow evaluation per RN, accu checks w/ ISS, HgbA1c pending. (7) Hypothyroidism: Continue home synthroid regimen, TSH pending. (8) Obesity: Weight loss and lifestyle changes encouraged, nutrition consulted. (9) Anxiety and Depression: Maintain on home duloxetine regimen. (10) Chronic Pain Syndrome: Patient per record on as needed agents only, hold given mental status changes and restart once appropriate to avoid withdrawal. (11) GERD: PPI. (12) DVT prophylaxis: SCDs, heparin. Code Visit Inpatient E AND M: [id number] Init Hosp L3 03/05/18 1611 <Electronically signed by Miranda Hernandez > Date Miranda Hernandez Cosigner Signature: Date (if applicable) CC: Miranda Hernandez; Aron Palumbo MD Signed CBC W/DIFF, AUTOMATED Collected: 03/05/2018 Status: F Source: KIET 2:20 PM [facility] REPOSITORY TYPE CODE TESTS RESULT OUT OF RANGE REFERENCE UNITS LAB L100.1000 4.4-11.0 K/mm3 High WBC 14.2 LAB L100.1200 4.2-5.4 M/mm3 Normal RBC 4.58 LAB L100.1300 12.0-15.0 g/dl Normal HGB 13.7 LAB L100.1400 37-47 % Normal HCT 40.0 LAB L100.1500 81-99 fL Normal MCV 87.3 LAB L100.1600 27.0-32.0 pg Normal MCH 29.9 LAB L100.1700 32-36 g/gl Normal MCHC 34.3 LAB L100.1810 11.6-14.6 % Normal RDW CV 13.8 LAB L100.1820 35.1-43.9 fl High RDW SD 44.0 LAB L100.1900 150-450 K/mm3 Normal PLT 356 LAB L100.2000 6.2-12.0 fl Normal MPV 9.8 LAB L100.2100 47-70 % High NEUT% 80.8 LAB L100.2200 19-41 % Low LY% 15.2 LAB L100.2300 0-10 % Normal MONO% 3.5 LAB L100.2400 0-5 % Normal EO% 0.2 LAB L100.2500 0-1 % Normal BASO% 0.1 LAB L100.2550 0.0-0.9 % Normal IM GRAN % 0.200 Result Comment: IG% - Immature Granulocytes (promyelocytes, myelocytes and metamyelocytes) > 1% indicates that a LEFT SHIFT is Present. LAB L100.2620 2.0-7.7 X10 3/uL High Absolute Neut 11.5 LAB L100.2720 0.83-4.51 X10 3/ul Normal Absolute Lymph 2.17 Performed By: #### L100.0100 #### [facility] [address] [place], [place], [address] BASIC METABOLIC Collected: 03/05/2018 Status: F Source: KIET PROFILE (BMP) 2:20 PM [facility] REPOSITORY TYPE CODE TESTS RESULT OUT OF RANGE REFERENCE UNITS LAB L501.0100 74-106 mg/dL High GLU 348 Result Comment: Glucose result greater than or equal to 200 mg/dL suggests DIABETES MELLITUS per A.D.A. criteria. Please note revised GLUCOSE reference range effective 2017. LAB L501.1000 7-18 mg/dL High BUN 23 LAB L501.1100 0.55-1.02 mg/dL High CREAT,SERUM 1.59 Result Comment: The validity of the calculated GFR AND GFRAA in patients over 70 years has not been determined. Clinical correlation is essential. LAB L501.1110 >60 mL/min Low EST GFR 37 Result Comment: Non- GFR Calc LAB L501.1115 >60 mL/min Low EST GFR - AA 44 Result Comment: GFR Calc LAB L501.1255 ml/min Normal Estimated CRCL 38.94 LAB L501.1300 10-20 RATIO Normal BUN/CRE 14.5 LAB L501.2200 8.5-10 mg/dL Normal .1 CA 9.5 LAB L501.5300 136-14 mmol/L Normal 5 NA 137 LAB L501.5600 3.5-5. mmol/L Normal 1 K 4.6 LAB L501.5900 98-107 mmol/L Normal CL 104 LAB L501.6100 21.0-3 mmol/L Normal 2.0 CO2 21.0 LAB L501.6200 5-15 Normal GAP 12 Performed By: #### L500.2500, L500.3400 #### [facility] [address] [place], [place], [id number] LIVER PROFILE Collected: 03/05/2018 Status: F Source: [place] 2:20 PM [facility] REPOSITORY TYPE CODE TESTS RESULT OUT OF RANGE REFERENCE UNITS LAB L501.1500 6.4-8.2 g/dL High T PROT 8.3 LAB L501.1800 3.2-5.0 g/dL Normal ALB 4.1 LAB L501.1950 2.2-4.2 g/dL Normal GLOB 4.2 LAB L501.4100 15-37 U/L Normal AST 31 LAB L501.4305 45-117 U/L Normal ALK P 90 LAB L501.4405 13-56 U/L Normal ALT 37 LAB L501.4600 0.20-1.00 mg/dL Normal T BILI 0.40 LAB L501.4700 0.00-0.30 mg/dL Normal D BILI 0.15 Performed By: #### L500.2500, L500.3400 #### [facility] [address] [place], [address] BEDSIDE GLUCOSE Collected: 03/05/2018 Status: F Source: [place] 2:08 PM [facility] REPOSITORY TYPE CODE TESTS RESULT OUT OF REFERENCE UNITS RANGE LAB L501.080 70-110 mg/dL High BEDSIDE GLU 366 Result Comment: MANAGEMENT OF PATIENT CARE PER NURSING PROTOCOL Performed By: #### L501.080 #### [facility] Point of Care [address] [place] [address] CONSULTATION Observed: 02/01/2018 Status: F Source: [place] 10:04 AM [facility] REPOSITORY [facility] Medical Records Department [facility] [place] [address] Consultation 01/31/18 1329 MR#: [id number] Acct: [id number] Name: GELY LACKEY Rep #: [id number] : 1970 47 From: Horacio Aguilera MD PCP: Aron Palumbo MD Status: DIS IN Y Location: [facility] [id number] Reason for Consult Date of Consultation: 01/31/18 Reason for Consultation: Confusion History of Present Illness: The patient is a 47 year old female with a history of what is him, nephrolithiasis, and COPD, current smoker, who was admitted with confusion which is now resolved. She says she is at her normal baseline. Apparently the confusion has resolved with improvement of hydration she was felt to be somewhat dehydrated. In the process of her evaluation an MRI was obtained which showed possible pontine infarct as well as lacunar infarcts. An empty sella. The patient has been asymptomatic. She feels her normal self. Past Medical History Past Medical History (Chronic Problems): Chronic Problems (Last Reviewed 12/12/17 @ 16:04 by Ting Denis) Morbid obesity (Chronic) Chronic low back pain (Chronic) COPD (chronic obstructive pulmonary disease) (Chronic) Hypertension (Chronic) Cervical cancer (Chronic) Allergies codeine Allergy (Verified 01/29/18 09:24) Rash nabumetone [From Relafen] Allergy (Verified 01/29/18 09:24) Rash Sulfa (Sulfonamide Antibiotics) Allergy (Verified 01/29/18 09:24) Rash albuterol Adverse Reaction (Uncoded 01/29/18 09:24) Laryngospasms Home Medications: Ambulatory Orders Medication Instructions Recorded Cholecalciferol (Vitamin D3) 2,000 unit PO DAILY 08/12/17 [Vitamin D3] Duloxetine HCl 60 mg PO DAILY 08/12/17 Surgical History: cholecystectomy, - Psychiatric History: No pertinent psych hx [employer] C[employer]ER History: cervical cancer Lives: Spouse/ Significant Other Smoking Status: Current every day smoker Tobacco Use: Cigarettes Drugs: - - *Family History Maternal History Items: Diabetes Paternal History Items: - Review of Systems Constitutional: Denies: Chills, Fever, Weight Change HEENT: Denies: Head Aches, Sinus Congestion, Sinus Drainage Cardiovascular: Denies: Chest Pain, Palpitations Respiratory: Denies: Cough, Shortness of breath at rest, Sputum production Gastrointestinal: Denies: Abdominal Pain, Nausea, Vomiting Genitourinary: Denies: Dysuria Musculoskeletal: Denies: Joint Pain, Joint Tenderness Skin: Denies: Rash, Wounds Neurological: Denies: Numbness, Tingling, Focal weakness Psychiatric: Denies: Anxiety, Depression, Homicidal Ideations, Suicidal Ideations Hematologic/ Lymphatic: Denies: Easy Bruising, Easy Bleeding Patient Problems: Active and Suspected Problems (Last Reviewed 12/12/17 @ 16:04 by Ting Denis) Encephalopathy acute (Acute) - Physical Exam General: Alert, Oriented x3, Cooperative HEENT: Atraumatic, PERRLA, EOMI, Normocephalic Neck: Supple, No JVD, Negative Carotid Bruits Lungs: Clear to auscultation, Normal air movement Cardiovascular: Regular rate, No murmurs Abdomen: Bowel Sounds Present, Soft, Non Tender Extremities: No edema, Capillary Refill Less than 3 Seconds Skin: No rashes, No breakdown Musculoskeletal: No Tenderness to Palpation of Joints or Extremities Neurological: Cranial nerves II-XII grossly intact Psych/Mental Status: Normal Affect, Appropriate Vital Signs Temp Pulse Resp BP Pulse Ox 37.5 C H 73 18 158/78 H 100 01/31/18 13:21 01/31/18 13:21 01/31/18 13:21 01/31/18 13:21 01/31/18 13:21 Oxygen Delivery Method Room Air Weight: 110.6 kg Body Mass Index (BMI) 40.6 Intake and Output for Last 24 Hours Intake Total 450 / 450 4735 / 4735 1550 / 1550 Balance 450 / 450 4735 / 4735 1550 / 1550 Laboratory Tests Past 24 Hrs WBC 12.1 H RBC 4.38 Hgb 13.3 Hct 38.7 WBC RBC Hgb Hct MCV POC Glucose POC Glucose 180 H 142 H 120 H POC Glucose 125 H MRI was reviewed. This is essentially normal. Nothing acute. There may be some very mild chronic white matter disease in her jose. Assessment/Plan Active and Suspected Problems (Last Reviewed 12/12/17 @ 16:04 by Ting Denis) Encephalopathy acute (Acute) Ashen: Encephalopathy, resolved. Her MRI I think is essentially normal for her age although I would recommend aspirin daily, as well as smoking cessation. She can be discharged with outpatient follow-up from neurology perspective. 02/01/18 1004 <Electronically signed by Horacio Aguilera MD> Date Horacio Aguilera MD Cosigner Signature (if applicable): Date CC: Aron Palumbo MD; Horacio Aguilera MD Signed DISCHARGE SUMMARY Observed: 01/31/2018 Status: F Source: [place] 6:11 PM [facility] REPOSITORY [facility] Medical Records Department [address] [place] [address] Discharge Summary 01/31/18 1206 MR#: [id number] Acct: [id number] Name: GELY LACKEY Rep #: [id number] : 1970 47 From: Mariposa Iverson [employer] TECHNICIAN-C PCP: Aron Palumbo MD Status: DIS IN Y Location: [facility] [id number] <Mariposa Iverson - Last Filed: 01/31/18 12:16> Discharge Date and Diagnosis Date of Admission: 01/29/18 Date of Discharge: 01/31/18 - Primary Discharge Diagnosis Active and Suspected Problems (Last Reviewed 12/12/17 @ 16:04 by Ting Denis) 1. Acute toxic encephalopathy 2. Acute kidney injury - Secondary Discharge Diagnosis Chronic Problems (Last Reviewed 12/12/17 @ 16:04 by Ting Denis) Morbid obesity (Chronic) Chronic low back pain (Chronic) COPD (chronic obstructive pulmonary disease) (Chronic) Hypertension (Chronic) Cervical cancer (Chronic) Hospital Course and Treatment Imaging Results: Diagnostic Data Brain CT 01/29/18 09:42 IMPRESSION: Normal unenhanced CT scan of the brain. Electronically Signed: Rufus Pike MD at 10:30 EDT Tel [phone], Service support , Chest X-Ray 01/29/18 09:42 IMPRESSION: Normal x-ray examination of the chest. Electronically Signed: Rufus Pike MD at 10:20 EDT Tel [phone], Service support , Brain MRI 01/30/18 11:26 IMPRESSION: Chronic ischemic changes or possible old bilateral lacunar infarcts in the jose. No significant periventricular white matter disease or evidence for acute infarct Incidental finding of empty sella deformity of uncertain significance although may be seen in association with pseudotumor cerebri. Clinical correlation is recommended in this regard Electronically Signed: Chuck Gonzales MD at 17:29 EDT , Service support , Dr. Aguilera- Neurology. Operations: None Procedures: 2-D Echocardiogram Summary of Care Provided: Patient is a 47-year-old female admitted 01/29/18 due to altered mental status. She has a past medical history of chronic pain syndrome, type 2 diabetes mellitus, COPD, tobacco dependence, GERD, hypothyroidism, gout. 1. Altered mental status, acute toxic encephalopathy-suspected secondary to polypharmacy. Tox screen negative. Brain CT unremarkable. Chest x-ray normal. Urinalysis unremarkable. No signs of infectious etiology. Patient is on multi drug pain regimen at home including Percocet, Lyrica, fentanyl patch, baclofen. Lyrica discontinued at discharge. MRI showed chronic ischemic changes or possible old bilateral lacunar infarcts in the jose. No evidence of acute infarct. Incidental finding of empty sella deformity of uncertain significance. Neurology consulted. Per neurology, no stroke on MRI. Patient will be discharged on aspirin, statin. Echocardiogram pending at discharge and can be followed by primary care physician. Follow-up with primary care physician in 1 week. 2. Acute renal failure on suspected chronic kidney disease stage III-creatinine on admission 2.66. Baseline appears to be 1.1-1.3. Patient received IV fluids. CT of abdomen November 2017 showed fatty liver and hepatomegaly. Bilateral scarred kidneys with nonobstructing renal stones. Creatinine now 0.92. 3. Mild leukocytosis-resolved. Unclear etiology. Appears chronic in nature. WBC in the range of 12-25 since 2016. 4. Chronic back pain/chronic pain syndrome-on multidrug regimen including baclofen, fentanyl patch, Lidoderm patch, Percocet, Lyrica. Patient follows with Dr. Gallegos as outpatient. Lumbar spine x-ray from October 2017 show degenerative disc disease and arthritic changes at L4-L5 and L5-S1. Lyrica discontinued at discharge. 5. Type 2 diabetes mellitus-continue home oral regimen. Hemoglobin A1c 7.4%. 6. Chronic COPD-no acute exacerbation. Continue albuterol and budesonide aerosols. 7. Hypertension-stable. 8. Hypothyroidism-continue home Synthroid regimen. 9. Tobacco dependence-encourage smoking cessation. 10. GERD-continue PPI. 11. Gout 12. Morbid obesity-encourage diet and lifestyle modifications. General: Alert, Oriented x3, Cooperative, No apparent distress HEENT: Atraumatic, PERRLA, EOMI, Normocephalic Neck: Supple, No JVD, Negative Carotid Bruits Lungs: Clear to auscultation, Diminished Cardiovascular: Regular rate, Regular Rhythm, Normal S1, Normal S2, No murmurs Abdomen: Bowel Sounds Present, Soft, Non Tender, Non-Distended, Obese Extremities: No clubbing, No cyanosis, No edema, Capillary Refill Less than 3 Seconds Skin: No rashes, No breakdown Musculoskeletal: No Tenderness to Palpation of Joints or Extremities Neurological: Cranial nerves II-XII grossly intact, Neuro grossly intact Psych/Mental Status: Normal Affect, Appropriate Patient seen and examined prior to discharge. Physical assessment as noted above. Patient stable for discharge home. This patient was seen by KRISHNA Cody under the supervision of Dr. Sánchez. Discharge Diet: Low fat/ Low Cholesterol, Carb Control Diet Discharge Activity: Return to Normal Activity Call your doctor if you observe: Numbness or Tingling, Shortness of breath, Dizziness, Fainting spells, Chest pain, Increased palpitations (irregular heartbeat) Home Medications: Medications to take at Discharge Cholecalciferol (Vitamin D3) [Vitamin D3] 2,000 unit PO DAILY 08/12/17 Duloxetine HCl 60 mg PO DAILY 08/12/17 Febuxostat [Uloric] 80 mg PO DAILY 08/12/17 Furosemide [Lasix] 20 mg PO DAILY PRN 08/12/17 Irbesartan [Avapro] 75 mg PO DAILY 08/12/17 Levothyroxine [Synthroid] 88 mcg PO DAILY 08/12/17 Linagliptin [Tradjenta] 5 mg PO DAILY 08/12/17 Montelukast [Singulair] 10 mg PO DAILY 08/12/17 Omeprazole [Prilosec] 20 mg PO DAILY 08/12/17 Oxycodone HCl/Acetaminophen [Percocet 7.5-325 mg Tablet] 1 each PO Q8H PRN PRN 08/12/17 Potassium Citrate [Urocit-K] 15 meq PO DAILY 08/12/17 Topiramate [Topamax] 100 mg PO DAILY 08/12/17 fentaNYL patch [Duragesic patch] 25 mcg TRANSDERM. Q72H 08/12/17 Boric Acid 300 gm MC PRN PRN 11/04/17 Cetirizine HCl [All Day Allergy] 10 mg PO DAILY 11/04/17 Fluticasone/Vilanterol [Breo Ellipta 200-25 Mcg INH] 1 each IH DAILY 11/04/17 Hydroxyzine HCl 12.5 mg PO Q8 PRN 11/04/17 Lidocaine [Lidoderm Patch] 2 patch TOPICAL DAILY 11/04/17 Metformin HCl 1,000 mg PO BID 11/04/17 Sodium Chloride [Saline Nasal [place]] 30 ml NS Q2H PRN PRN 11/04/17 Baclofen 20 mg PO TID PRN 01/29/18 Aspirin E.C. [Ecotrin] 81 mg PO DAILY@0800 #30 tab 01/31/18 Atorvastatin Calcium [Lipitor] 40 mg PO QHS #30 tab 01/31/18 Following Prescrptions Were Given to Patient: Aspirin E.C. [Ecotrin] 81 mg PO DAILY@0800 #30 tab Atorvastatin Calcium [Lipitor] 40 mg PO QHS #30 tab Primary Care Physician: Aron Palumbo MD [Primary Care Provider] - Please follow up with your Primary Care Physician in: 1 Week Disposition: Home Minutes spent on discharge:: 35 Patient Condition:: Stable Medical Necessity - Tobacco Use Smoking Status: Current every day smoker Tobacco Use: Cigarettes Meaningful Use Info Meaningful Use Diagnoses (Choose all that apply): None applicable <Aron Sánchez - Last Filed: 01/31/18 18:10> Discharge Date and Diagnosis - Secondary Discharge Diagnosis Chronic Problems (Last Reviewed 12/12/17 @ 16:04 by Ting Denis) Morbid obesity (Chronic) Chronic low back pain (Chronic) COPD (chronic obstructive pulmonary disease) (Chronic) Hypertension (Chronic) Cervical cancer (Chronic) Hospital Course and Treatment Operations: None Procedures: 2-D Echocardiogram Summary of Care Provided: Seen and examined pending. Agree with the above note by the nurse practitioner. Patient presents with encephalopathy likely combination of toxic and metabolic. Patient underwent an MRI that showed questionable pontine strokes. Evaluation of neurology felt that these were not pontine strokes. Recommend patient discontinue her Lyrica. The patient is a 47 year old F [] Discharge Diet: Low fat/ Low Cholesterol, Carb Control Diet Discharge Activity: Return to Normal Activity Call your doctor if you observe: Numbness or Tingling, Shortness of breath, Dizziness, Fainting spells, Chest pain, Increased palpitations (irregular heartbeat) Disposition: Home Minutes spent on discharge:: 35 Meaningful Use Info Meaningful Use Diagnoses (Choose all that apply): None applicable Code Visit Inpatient ROB: [id number] Disch Hosp 01/31/18 1217 <Electronically signed by Mariposa Iverson [employer] TECHNICIAN-C> Date Mariposa Iverson [employer] TECHNICIAN-C 01/31/18 181<Electronically signed by Aron Sánchez DO> Cosigner Signature (if applicable): Date Aron Sánchez DO CC: [employer] TECHNICIAN-C Mariposa Iverson; Aron Sánchez DO; Aron Palumbo MD Signed ECHOCARDIOGRAM COMPLETE Observed: 01/31/2018 Status: F Source: [place] 2:08 PM [facility] REPOSITORY [facility] Cardiovascular Services [address] [place] [address] Echo Complete 01/31/1810 MR#: [id number] Acct: [id number] Name: GELY LACKEY Rep #: [id number] : 1970 47 From: Yoav Montes MD Attending Dr: Aron Sánchez DO Status: ADM IN Ordering Dr: Aron Sánchez DO Date: 01/30/18 Location: [facility] Sex: F C Admitted: 01/29/18 Version 2 Reason For Study: CVA Procedure This was a 2D Doppler, Color Flow transthoracic echocardiogram. Exam performed portable in patient room. Left Ventricle Normal size and thickness. The estimated ejection fraction is 65 %. Stage 1 diastolic dysfunction. No regional wall motion abnormalities noted. Right Ventricle Normal size and thickness. Normal systolic function. Atria Normal left atrium. Normal right atrium. Normal atrial septum. Bubble contrast study negative for right to left interatrial shunt. Mitral Valve The mitral valve is structurally normal. No prolapse or stenosis seen. Trivial mitral valve insufficiency. Tricuspid Valve Normal tricuspid valve. Trivial tricuspid valve insufficiency. Right ventricular systolic pressure estimated to be 31 mmHg. Aortic Valve Normal aortic valve. Trisinus/trileaflet aortic valve. Pulmonic Valve Normal pulmonic valve. Great Vessels Normal aortic root. Normal arch. Normal inferior vena cava. Inferior vena cava collapse with sniff. Pericardium/Pleural No pericardial effusion. Medication Performed a rapid injection of agitated mix of 9 cc saline and 1cc air to assess for atrial septal defect. MMode/2D Measurements AND Calculations LVIDd: 4.3 cm IVSd: 1.1 cm Ao root diam: 2.8 cm LVIDs: 2.9 cm LVPWd: 0.85 cm LA dimension: 3.2 cm RVDd: 3.4 cm FS: 32.6 % LAV(MOD-bp): 46.7 ml EDV(MOD-sp4): 110.8 ml EDV(MOD-sp2): 99.2 ml LAV(MOD-bp) Indexed: 21.7 ml/m2 ESV(MOD-sp4): 45.3 ml EF(MOD-sp2): 65.5 % LAV(MOD-sp2): 46.9 ml EF(MOD-sp4): 59.1 % LAV(MOD-sp4): 41.4 ml SV(MOD-sp4): 65.5 ml SV(MOD-sp2): 65.0 ml LA A4 area: 15.0 cm2 RA A4 area: 12.4 cm2 Doppler Measurements AND Calculations MV E max leora: 93.9 cm/sec Lat Peak E' Leora: 10.2 cm/sec Med Peak E' Leora: 8.6 cm/sec MV A max leora: 81.0 cm/sec E/E' lat: 9.2 E/E' med: 10.9 MV E/A: 1.2 Ao V2 max: 127.2 cm/sec LV V1 max: 105.7 cm/sec PA V2 max: 96.5 cm/sec Ao max P.5 mmHg LV V1 max P.5 mmHg TR max leora: 249.6 cm/sec TR max P.9 mmHg Interpretation Summary The estimated ejection fraction is 65 %. Stage 1 diastolic dysfunction. Trivial mitral valve insufficiency. Trivial tricuspid valve insufficiency. Right ventricular systolic pressure estimated to be 31 mmHg. Compared to echo report dated 10/21/2014, no appreciable changes noted. Bubble contrast study negative for right to left interatrial shunt. Ordering Physician: Aron Sánchez Referring Physician: Aron Palumbo MD Performed By: Liz Quintana RDCS 01/31/18 1407 Date Yoav Montes MD CC: Aron Sánchez DO; Aron Palumbo MD Date Dictated: 01/31/18 0810 Date Transcribed: 01/31/18 140 Industrial Engineering Professor: Signed DISCHARGE INSTRUCTION Observed: 01/31/2018 Status: F Source: [place] 12:17 PM [facility] REPOSITORY [facility] Medical Records Department [address] [place] [address] Instructions for Home/Discharge Instructions 01/31/18 1202 MR#: [id number] Acct: [id number] Name: GELY LACKEY Rep #: [id number] : 1970 47 From: Mariposa Iverson [employer] TECHNICIAN-C PCP: Aron Palumbo MD Status: ADM IN - Discharge Diagnoses Current Active Problems: Current Active and Chronic Problems (Last Reviewed 12/12/17 @ 16:04 by Ting Denis) Encephalopathy acute (Acute) You will use the following diet at home:: Calorie/Carbohydrate Controlled (specify 1200, 1400, etc) Discharge Activity: Return to Normal Activity Call your doctor if you observe: Numbness or Tingling, Shortness of breath, Dizziness, Fainting spells, Chest pain, Increased palpitations (irregular heartbeat) Allergies/Adverse Reactions: Allergies codeine Allergy (Verified 01/29/18 09:24) Rash nabumetone [From Relafen] Allergy (Verified 01/29/18 09:24) Rash Sulfa (Sulfonamide Antibiotics) Allergy (Verified 01/29/18 09:24) Rash albuterol Adverse Reaction (Uncoded 01/29/18 09:24) Laryngospasms Medications to take at Discharge Cholecalciferol (Vitamin D3) [Vitamin D3] 2,000 unit PO DAILY 08/12/17 Duloxetine HCl 60 mg PO DAILY 08/12/17 Febuxostat [Uloric] 80 mg PO DAILY 08/12/17 Furosemide [Lasix] 20 mg PO DAILY PRN 08/12/17 Irbesartan [Avapro] 75 mg PO DAILY 08/12/17 Levothyroxine [Synthroid] 88 mcg PO DAILY 08/12/17 Linagliptin [Tradjenta] 5 mg PO DAILY 08/12/17 Montelukast [Singulair] 10 mg PO DAILY 08/12/17 Omeprazole [Prilosec] 20 mg PO DAILY 08/12/17 Oxycodone HCl/Acetaminophen [Percocet 7.5-325 mg Tablet] 1 each PO Q8H PRN PRN 08/12/17 Potassium Citrate [Urocit-K] 15 meq PO DAILY 08/12/17 Topiramate [Topamax] 100 mg PO DAILY 08/12/17 fentaNYL patch [Duragesic patch] 25 mcg TRANSDERM. Q72H 08/12/17 Boric Acid 300 gm MC PRN PRN 11/04/17 Cetirizine HCl [All Day Allergy] 10 mg PO DAILY 11/04/17 Fluticasone/Vilanterol [Breo Ellipta 200-25 Mcg INH] 1 each IH DAILY 11/04/17 Hydroxyzine HCl 12.5 mg PO Q8 PRN 11/04/17 Lidocaine [Lidoderm Patch] 2 patch TOPICAL DAILY 11/04/17 Metformin HCl 1,000 mg PO BID 11/04/17 Sodium Chloride [Saline Nasal [place]] 30 ml NS Q2H PRN PRN 11/04/17 Baclofen 20 mg PO TID PRN 01/29/18 Aspirin E.C. [Ecotrin] 81 mg PO DAILY@0800 #30 tab 01/31/18 Atorvastatin Calcium [Lipitor] 40 mg PO QHS #30 tab 01/31/18 The following prescriptions were given: Aspirin E.C. [Ecotrin] 81 mg PO DAILY@0800 #30 tab Atorvastatin Calcium [Lipitor] 40 mg PO QHS #30 tab Primary Care Physician: Aron Palumbo MD [Primary Care Provider] - Please follow up with your Primary Care Physician in: 1 Week 01/31/18 1217 <Electronically signed by Mariposa KELLER> Date Mariposa Iverson NP-C CC: Aron Palumbo MD; Horacio Aguilera MD BEDSIDE GLUCOSE Collected: 01/31/2018 Status: F Source: KIET 12:09 PM [facility] REPOSITORY TYPE CODE TESTS RESULT OUT OF REFERENCE UNITS RANGE LAB L501.080 70-110 mg/dL High BEDSIDE GLU 180 Result Comment: MANAGEMENT OF PATIENT CARE PER NURSING PROTOCOL Performed By: #### L501.080 #### [facility] Point of Care [address] [place], [place] [address] BEDSIDE GLUCOSE Collected: 01/31/2018 Status: F Source: KIET 6:36 AM [facility] REPOSITORY TYPE CODE TESTS RESULT OUT OF REFERENCE UNITS RANGE LAB L501.080 70-110 mg/dL High BEDSIDE GLU 142 Result Comment: MANAGEMENT OF PATIENT CARE PER NURSING PROTOCOL Performed By: #### L501.080 #### [facility] Point of Care [address] [place], [place] [address] CBC-COMPLETE BLOOD CNT Collected: 01/31/2018 Status: F Source: KIET NO DIFF 6:20 AM [facility] REPOSITORY TYPE CODE TESTS RESULT OUT OF RANGE REFERENCE UNITS LAB L100.1000 4.4-11.0 K/mm3 High WBC 12.1 LAB L100.1200 4.2-5.4 M/mm3 Normal RBC 4.38 LAB L100.1300 12.0-15.0 g/dl Normal HGB 13.3 LAB L100.1400 37-47 % Normal HCT 38.7 LAB L100.1500 81-99 fL Normal MCV 88.4 LAB L100.1600 27.0-32.0 pg Normal MCH 30.4 LAB L100.1700 32-36 g/gl Normal MCHC 34.4 LAB L100.1810 11.6-14.6 % Normal RDW CV 13.8 LAB L100.1820 35.1-43.9 fl High RDW SD 44.2 LAB L100.1900 150-450 K/mm3 Normal PLT 353 LAB L100.2000 6.2-12.0 fl Normal MPV 9.9 Performed By: #### L100.0500 #### [facility] [address] [place], [place], [address] BASIC METABOLIC Collected: 01/31/2018 Status: F Source: KIET PROFILE (BMP) 6:20 AM [facility] REPOSITORY TYPE CODE TESTS RESULT OUT OF RANGE REFERENCE UNITS LAB L501.0100 74-106 mg/dL High GLU 135 Result Comment: Fasting Glucose result greater than or equal to 126 mg/dL suggests DIABETES MELLITUS per A.D.A. criteria. Please note revised GLUCOSE reference range effective 2017. LAB L501.1000 7-18 mg/dL Normal BUN 18 LAB L501.1100 0.55-1.02 mg/dL Normal CREAT,SERUM 0.92 Result Comment: The validity of the calculated GFR AND GFRAA in patients over 70 years has not been determined. Clinical correlation is essential. LAB L501.1110 >60 mL/min Normal EST GFR 69 Result Comment: Non- GFR Calc LAB L501.1115 >60 mL/min Normal EST GFR - AA 84 Result Comment: GFR Calc LAB L501.1255 ml/min Normal Estimated CRCL 67.29 LAB L501.1300 10-20 RATIO Normal BUN/CRE 19.6 LAB L501.2200 8.5-10 mg/dL Normal .1 CA 9.0 LAB L501.5300 136-14 mmol/L Normal 5 NA 140 LAB L501.5600 3.5-5. mmol/L Normal 1 K 4.3 LAB L501.5900 98-107 mmol/L High CL 112 LAB L501.6100 21.0-3 mmol/L Low 2.0 CO2 18.0 LAB L501.6200 5-15 Normal GAP 10 Performed By: #### L500.2500, L500.4100, L501.9520 #### [facility] [address] [place], [place], [address] LIPID PROFILE Collected: 01/31/2018 Status: F Source: KIET 6:20 AM [facility] REPOSITORY TYPE CODE TESTS RESULT OUT OF RANGE REFERENCE UNITS LAB L501.4900 200 mg/dL High CHOL 219 Result Comment: <200 mg/dL Desirable 200-240 mg/dL Borderline >240 mg/dL High Risk LAB L501.5000 mg/dL High TRIG 453 Result Comment: The drugs N-Acetylcysteine and Metamizole may falsely depress this assay. TRIGLYCERIDE IS GREATER THAN 400 mg/dL. LDL RESULT IS INVALID AND WILL NOT BE REPORTED. Serum Triglycerides Reference Interval Normal <150 mg/dL Borderline high 150 - 199 mg/dL High 200 - 499 mg/dL Very High > or = 500 mg/dL LAB L501.6400 mg/dL Low HDL 28 Result Comment: The drugs N-Acetylcysteine and Metamizole may falsely depress this assay. Reference Range HDL <40 mg/dL Low HDL Cholesterol HDL >or= 60 mg/dL High HDL Cholesterol LAB L501.6500 0-130 mg/dL Test Normal not performed LDL LAB L501.6600 5-40 mg/dL Test Normal not performed VLDL Performed By: #### L500.2500, L500.4100, L501.9520 #### [facility] [address] [place], [address] THYROID STIM HORMONE Collected: 01/31/2018 Status: F Source: KIET (TSH) 6:20 AM [facility] REPOSITORY TYPE CODE TESTS RESULT OUT OF RANGE REFERENCE UNITS LAB L501.9520 0.358-3.74 uIU/mL High TSH 6.42 Performed By: #### L500.2500, L500.4100, L501.9520 #### [facility] [address] [place], [place], [address] CORTISOL SERUM Collected: 01/31/2018 Status: F Source: KIET 6:20 AM [facility] REPOSITORY TYPE CODE TESTS RESULT OUT OF REFERENCE UNITS RANGE LAB L509.6000 3.09-22.40 ug/dL High CORTISOL 30.40 Result Comment: Adult (AM) 4.30 - 22.40 ug/dL Adult (PM) 3.09 - 16.66 ug/dL Performed By: #### L509.6000 #### [facility] [address] [place], [address] T4 FREE DIRECT Collected: 01/31/2018 Status: F Source: KIET 6:20 AM [facility] REPOSITORY TYPE CODE TESTS RESULT OUT OF RANGE REFERENCE UNITS LAB L506.0400 0.76-1.46 ng/dL Normal T4 FREE 0.94 DIRECT Performed By: #### L506.0400 #### [facility] [address] [place], [address] BEDSIDE GLUCOSE Collected: 01/30/2018 Status: F Source: [place] 10:16 PM [facility] REPOSITORY TYPE CODE TESTS RESULT OUT OF REFERENCE UNITS RANGE LAB L501.080 70-110 mg/dL High BEDSIDE GLU 120 Result Comment: MANAGEMENT OF PATIENT CARE PER NURSING PROTOCOL Performed By: #### L501.080 #### [facility] Point of Care [address] [place] [address] BEDSIDE GLUCOSE Collected: 01/30/2018 Status: F Source: [place] 4:27 PM [facility] REPOSITORY TYPE CODE TESTS RESULT OUT OF REFERENCE UNITS RANGE LAB L501.080 70-110 mg/dL High BEDSIDE GLU 125 Result Comment: MANAGEMENT OF PATIENT CARE PER NURSING PROTOCOL Performed By: #### L501.080 #### [facility] Point of Care [address] [place] [address] 12 LEAD ELECTROCARDIOGRAM Observed: 01/30/2018 Status: F Source: [place] 3:17 PM [facility] REPOSITORY [facility] Cardiovascular Services [address] [facility] [place] [address] 12 Lead EKG 01/29/18 0959 MR#: [id number] Acct: [id number] Name: GELY LACKEY Deborah Rep #: [id number] : 1970 47 From: Francis Mckoy MD Attending Dr: Aron Sánchez DO Status: ADM IN Ordering Dr: Chuck Zacarias MD Date: 01/29/18 Location: MS3 Sex: F C Admitted: 01/29/18 Test Reason : CONFUSION Blood Pressure : / mmHG Vent. Rate : 078 BPM Atrial Rate : 078 BPM P-R Int : 146 ms QRS Dur : 080 ms QT Int : 380 ms P-R-T Axes : 064 028 047 degrees QTc Int : 433 ms Normal sinus rhythm Normal ECG Confirmed by FRANCIS MCKOY MD ([id number]), loan expeditor LINDA IRBY ([id number]) on 01/30/2018 3:16:57 PM Referred By: CRIS/DALILA Confirmed By:FRANCIS MCKOY MD 01/30/18 1517 Date Francis Mckoy MD CC: Aron Sánchez DO; Aron Palumbo MD; Chuck Zacarias MD Signed BRAIN WITHOUT Observed: 01/30/2018 Status: F Source: [place] CONTRAST 11:27 AM [facility] REPOSITORY [facility] Imaging Services [address] [place] [address] Brain without Contrast MR#: [id number] Acct: [id number] Name: GELY LACKEY Rep #: [id number] : 1970 F 47 From: Chuck Gonzales MD PCP: Aron Palumbo MD Status: ADM IN Study: Brain without Contrast Date of Exam: 01/30/18 Exam# [id number] Ordering Dr: Aron Sánchez DO STUDY: MRI BRAIN WITHOUT CONTRAST REASON FOR EXAM: Female, 47 years old. Encephalopathy and altered mental status TECHNIQUE: Standardized multiplanar fat and water weighted pulse sequences were obtained. COMPARISON: CT of the brain on January 29, 2018. FINDINGS: Normal size of the ventricles and extra-axial spaces for the patient's age. Normal white matter tracts of the supratentorial brain. Chronic ischemic changes within the jose bilaterally possibly due to old lacunar infarcts Normal bilateral basal ganglia. Normal thalami. There is no extra-axial fluid accumulation. Normal flow voids within the major intracranial circulation suggesting patency by spin echo criteria. Empty sella deformity of uncertain clinical significance. Normal, infundibular stalk, optic chiasm and hypothalamus. Normal tectal plate and pineal gland. Normal midbrain, jose and medulla. Normal cerebellum. Normal basal cisterns. Normal bilateral temporal bones. Normal bilateral internal auditory canals. No demonstrated orbital abnormality, within the constraints of a routine brain study. Normal visualized paranasal sinuses. Normal calvarium and skull base. Normal visualized soft tissue structures. Normal visualized upper cervical spine. MRI/Brain without Contrast IMPRESSION: Chronic ischemic changes or possible old bilateral lacunar infarcts in the jose. No significant periventricular white matter disease or evidence for acute infarct Incidental finding of empty sella deformity of uncertain significance although may be seen in association with pseudotumor cerebri. Clinical correlation is recommended in this regard Electronically Signed: Chuck Gonzales MD at 17:29 EDT , Service support , CC: Aron Sánchez DO; Aron Palumbo MD Industrial Engineering Professor: Signed BEDSIDE GLUCOSE Collected: 01/30/2018 Status: F Source: KIET 11:18 AM [facility] REPOSITORY TYPE CODE TESTS RESULT OUT OF REFERENCE UNITS RANGE LAB L501.080 70-110 mg/dL High BEDSIDE GLU 186 Result Comment: MANAGEMENT OF PATIENT CARE PER NURSING PROTOCOL Performed By: #### L501.080 #### [facility] Point of Care [address] [place] [address] BEDSIDE GLUCOSE Collected: 01/30/2018 Status: F Source: KIET 6:56 AM [facility] REPOSITORY TYPE CODE TESTS RESULT OUT OF REFERENCE UNITS RANGE LAB L501.080 70-110 mg/dL High BEDSIDE GLU 133 Result Comment: MANAGEMENT OF PATIENT CARE PER NURSING PROTOCOL Performed By: #### L501.080 #### [facility] Point of Care [address] [place] [address] CBC W/DIFF, AUTOMATED Collected: 01/30/2018 Status: F Source: KIET 5:50 AM [facility] REPOSITORY TYPE CODE TESTS RESULT OUT OF RANGE REFERENCE UNITS LAB L100.1000 4.4-11.0 K/mm3 Normal WBC 10.1 LAB L100.1200 4.2-5.4 M/mm3 Low RBC 4.11 LAB L100.1300 12.0-15.0 g/dl Normal HGB 12.0 LAB L100.1400 37-47 % Normal HCT 37.0 LAB L100.1500 81-99 fL Normal MCV 90.0 LAB L100.1600 27.0-32.0 pg Normal MCH 29.2 LAB L100.1700 32-36 g/gl Normal MCHC 32.4 LAB L100.1810 11.6-14.6 % Normal RDW CV 14.2 LAB L100.1820 35.1-43.9 fl High RDW SD 46.8 LAB L100.1900 150-450 K/mm3 Normal PLT 328 LAB L100.2000 6.2-12.0 fl Normal MPV 9.8 LAB L100.2100 47-70 % Normal NEUT% 56.3 LAB L100.2200 19-41 % Normal LY% 37.0 LAB L100.2300 0-10 % Normal MONO% 4.7 LAB L100.2400 0-5 % Normal EO% 1.7 LAB L100.2500 0-1 % Normal BASO% 0.2 LAB L100.2550 0.0-0.9 % Normal IM GRAN % 0.100 Result Comment: IG% - Immature Granulocytes (promyelocytes, myelocytes and metamyelocytes) > 1% indicates that a LEFT SHIFT is Present. LAB L100.2620 2.0-7.7 X10 3/uL Normal Absolute Neut 5.7 LAB L100.2720 0.83-4.51 X10 3/ul Normal Absolute Lymph 3.74 Performed By: #### L100.0100 #### [facility] [address] [facility] [place], [address] BASIC METABOLIC Collected: 01/30/2018 Status: F Source: [place] PROFILE (BMP) 5:50 AM [facility] REPOSITORY TYPE CODE TESTS RESULT OUT OF RANGE REFERENCE UNITS LAB L501.0100 74-106 mg/dL High GLU 135 Result Comment: Fasting Glucose result greater than or equal to 126 mg/dL suggests DIABETES MELLITUS per A.D.A. criteria. Please note revised GLUCOSE reference range effective 2017. LAB L501.1000 7-18 mg/dL High BUN 24 LAB L501.1100 0.55-1.02 mg/dL High CREAT,SERUM 1.12 Result Comment: The validity of the calculated GFR AND GFRAA in patients over 70 years has not been determined. Clinical correlation is essential. LAB L501.1110 >60 mL/min Low EST GFR 55 Result Comment: Non- GFR Calc LAB L501.1115 >60 mL/min Normal EST GFR - AA 67 Result Comment: GFR Calc LAB L501.1255 ml/min Normal Estimated CRCL 55.28 LAB L501.1300 10-20 RATIO High BUN/CRE 21.4 LAB L501.2200 8.5-10 mg/dL Normal .1 CA 8.5 LAB L501.5300 136-14 mmol/L Normal 5 NA 141 LAB L501.5600 3.5-5. mmol/L Normal 1 K 4.3 LAB L501.5900 98-107 mmol/L High CL 113 LAB L501.6100 21.0-3 mmol/L Normal 2.0 CO2 21.0 LAB L501.6200 5-15 Normal GAP 7 Performed By: #### L500.2500 #### [facility] [address] [place], [address] BEDSIDE GLUCOSE Collected: 01/29/2018 Status: F Source: [place] 10:42 PM [facility] REPOSITORY TYPE CODE TESTS RESULT OUT OF REFERENCE UNITS RANGE LAB L501.080 70-110 mg/dL High BEDSIDE GLU 131 Result Comment: MANAGEMENT OF PATIENT CARE PER NURSING PROTOCOL Performed By: #### L501.080 #### [facility] Point of Care [address] [place] [address] HISTORY AND PHYSICAL Observed: 01/29/2018 Status: F Source: [place] EXAM 5:31 PM [facility] REPOSITORY [facility] Medical Records Department [address] [place] [address] History and Physical 01/29/18 1608 MR#: [id number] Acct: [id number] Name: ZIYADGELY Deborah Rep #: [id number] : 1970 47 From: Mariposa Iverson [employer] TECHNICIAN-C PCP: Aron Palumbo MD Status: ADM IN Y Location: [facility] [id number] <Mariposa Iverson - Last Filed: 01/29/18 16:32> Problem List (1) Acute cholecystitis Status: Resolved (2) Morbid obesity Status: Chronic (3) Chronic low back pain Status: Chronic (4) COPD (chronic obstructive pulmonary disease) Status: Chronic (5) Hypertension Status: Chronic (6) Cervical cancer Status: Chronic (7) Severe sepsis Status: Resolved (8) Gallbladder rupture Status: Resolved (9) Respiratory failure Status: Resolved (10) Surgical wound dehiscence Status: Resolved (11) Wound infection after surgery Status: Resolved History of Present Illness Date of Admission: 01/29/18 Chief Complaint: Altered mental status The patient is a 47 year old F who presents to the emergency room with altered mental status. Patient was brought in by her fianc who states he has never seen her like this before. Per ER report, he noted patient to be lethargic and had trouble waking her throughout the night and also noted confusion. Fianc is no longer available at bedside. Patient is confused on assessment and not able to answer questions appropriately. When asked what year it is patient states [place]. She answers [place] to various other questions. Patient appears very restless and is pulling at blankets and moving legs. Per records, she has a past medical history of chronic pain syndrome, type 2 diabetes mellitus, COPD, tobacco dependence, GERD, hypothyroidism, gout. Past Medical History Past Medical History (Chronic Problems): Chronic Problems (Last Reviewed 12/12/17 @ 16:04 by Ting Denis) Morbid obesity (Chronic) Chronic low back pain (Chronic) COPD (chronic obstructive pulmonary disease) (Chronic) Hypertension (Chronic) Cervical cancer (Chronic) Allergies codeine Allergy (Verified 01/29/18 09:24) Rash nabumetone [From Relafen] Allergy (Verified 01/29/18 09:24) Rash Sulfa (Sulfonamide Antibiotics) Allergy (Verified 01/29/18 09:24) Rash albuterol Adverse Reaction (Uncoded 01/29/18 09:24) Laryngospasms Home Medications: Ambulatory Orders Medication Instructions Recorded Surgical History: cholecystectomy, - - 2 history section, carpal tunnel surgery Psychiatric History: 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 VTE Information - Inpt Only VTE Present on Admission: No VTE Mechan Device Prophylaxis: None VTE Pharm Prophylaxis ordered?: Yes Patient Problems: Active and Suspected Problems (Last Reviewed 12/12/17 @ 16:04 by Ting Denis) Encephalopathy acute (Acute) - Physical Exam General: Alert, No apparent distress, Confused, Disoriented HEENT: Atraumatic, PERRLA, EOMI, Normocephalic Oral: Dry Mucosa Neck: Supple, No JVD, Negative Carotid Bruits Lungs: Diminished, Wheezes Cardiovascular: Regular rate, Regular Rhythm, Normal S1, Normal S2, No murmurs Abdomen: Bowel Sounds Present, Soft, Non Tender, Non-Distended, Obese Extremities: No clubbing, No cyanosis, No edema, Capillary Refill Less than 3 Seconds Skin: No rashes, No breakdown Musculoskeletal: No Tenderness to Palpation of Joints or Extremities Neurological: Cranial nerves II-XII grossly intact Psych/Mental Status: Restless Vital Signs Temp Pulse Resp BP Pulse Ox 99.0 F 74 20 H 114/55 L 94 01/29/18 14:51 01/29/18 15:14 01/29/18 15:14 01/29/18 14:51 01/29/18 14:51 Oxygen Delivery Method Room Air Weight: 110.6 kg Body Mass Index (BMI) 40.6 Assessment/Plan Active and Suspected Problems (Last Reviewed 12/12/17 @ 16:04 by Ting Denis) Encephalopathy acute (Acute) 1. Altered mental status, suspected acute encephalopathy secondary to polypharmacy-tox screen pending. Brain CT unremarkable. Chest x-ray normal. Urinalysis unremarkable. Patient is on multi drug pain regimen at home including Percocet, Lyrica, fentanyl patch, baclofen which are on hold at this time. Continue to monitor. 2. Acute renal failure on suspected chronic kidney disease stage III-creatinine on admission 2.66. Baseline appears to be 1.1-1.3. Home Lasix regimen on hold. Continue IV fluids. Monitor BMP. CT of abdomen November 2017 showed fatty liver and hepatomegaly. Bilateral scarred kidneys with nonobstructing renal stones. 3. Mild leukocytosis-unclear etiology. Appears chronic in nature. WBC in the range of 12-25 since 2016. 4. Chronic back pain/chronic pain syndrome-on multidrug regimen including baclofen, fentanyl patch, Lidoderm patch, Percocet, Lyrica. Recommend patient follow-up with pain management as outpatient. Lumbar spine x-ray from October 2017 show degenerative disc disease and arthritic changes at L4-L5 and L5-S1. 5. Type 2 diabetes mellitus-home oral regimen on hold. Accu- Cheks before meals at bedtime with sliding scale insulin. Check hemoglobin A1c. 6. Chronic COPD-no acute exacerbation. Continue albuterol and budesonide aerosols. 7. Hypertension-stable. 8. Hypothyroidism-continue home Synthroid regimen. 9. Tobacco dependence-encourage smoking cessation. 10. GERD-continue PPI. 11. Gout 12. Morbid obesity-nutrition consult for diet education when patient is alert and oriented. DVT prophylaxis-heparin subcu. This patient was seen by Mariposa Iverson NP-Coni under the supervision of Dr. Sánchez. <Aron Sánchez - Last Filed: 01/29/18 17:30> Problem List (1) Encephalopathy acute Status: Acute (2) Morbid obesity Status: Chronic (3) Chronic low back pain Status: Chronic (4) COPD (chronic obstructive pulmonary disease) Status: Chronic (5) Hypertension Status: Chronic (6) Cervical cancer Status: Chronic History of Present Illness The patient is a 47 year old F presents with confusion. Confusion was much worse over the past couple days where the patient has been having mild clonus plus perseverating her speech. The patient's fianc said he spoke with the patient's son and who noted that the patient was having some perseverated speech couple weeks ago and was concerned that she was high on drugs. The patient's fianc is unaware of the patient using any kind of illicit substances. Patient is on narcotics but he is not suspecting that she is using them inappropriately. She presented to the emergency room and had a head CT that was negative. The patient's fianc noted that she has been feeling sick and rundown over the past month or so but otherwise she has been feeling well. Patient is confused and unable to provide any adequate history. 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 Perseverated speech. HEENT: Atraumatic, PERRLA, EOMI, Normocephalic Oral: Moist Mucosa, No Gingival or Mucosal Lesions/ Ulcerations Neck: No Nodes, Thyroid Normal Size and Texture Lungs: Clear to auscultation, Normal air movement, No rhonchi, No wheeze, Diminished Cardiovascular: Regular rate, Regular Rhythm, Normal S1, Normal S2, No murmurs Abdomen: Bowel Sounds Present, Soft, Non Tender, Non-Distended Extremities: No edema, No Calf Tenderness Skin: No rashes, No breakdown Neurological: Cranial nerves II-XII grossly intact, Deep Tendon Reflexes 2+/4 and Symmetrical Psych/Mental Status: Agitated, Restless Vital Signs Temp Pulse Resp BP Pulse Ox 37.2 C 74 20 H 114/55 L 94 01/29/18 14:51 01/29/18 15:14 01/29/18 15:14 01/29/18 14:51 01/29/18 14:51 Oxygen Delivery Method Room Air Weight: 110.6 kg Body Mass Index (BMI) 40.6 Laboratory Tests Past 24 Hrs Urine Opiates Screen NEGATIVE Urine Methadone Screen NEGATIVE Ur Barbiturates Screen NEGATIVE Ur Phencyclidine Scrn NEGATIVE Assessment/Plan Seen and examined independent. Agree the above note by the nurse practitioner. 1. Acute encephalopathy: Toxic versus metabolic or combination thereof. Hold potentiating medications. Check an MRI of the brain to rule out any other acute process. Given the patient's progress may need to consider getting a lumbar puncture. Drug screen negative. I doubt the patient is uremic as a cause of her myoclonus and change in mental status. 2. Acute kidney injury: Baseline creatinine is 1.23 from October. Presumed prerenal. IV fluids. 3. Leukocytosis: No left shift. Has been chronically elevated in the past and actually today it is lower than it has been. Continue to monitor. No evidence of any infection at this time. 4. DVT prophylaxis with heparin Code Visit Inpatient E AND M: 44631 Init Hosp L3 01/29/18 1632 <Electronically signed by Mariposa Iverson PLAYER PIANO TECHNICIAN-C> Date Mariposa Iverson PLAYER PIANO TECHNICIAN-C 01/29/18 1731<Electronically signed by Aron Sánchez DO> Cosigner Signature: Date (if applicable) Aron Sánchez DO CC: PLAYER PIANO TECHNICIAN-C Mariposa Iverson; Aron Sánchez DO; Aron Palumbo MD Signed BEDSIDE GLUCOSE Collected: 01/29/2018 Status: F Source: [place] 5:21 PM [facility] REPOSITORY TYPE CODE TESTS RESULT OUT OF REFERENCE UNITS RANGE LAB L501.080 70-110 mg/dL High BEDSIDE GLU 121 Result Comment: MANAGEMENT OF PATIENT CARE PER NURSING PROTOCOL Performed By: #### L501.080 #### [facility] Point of Care [address] [facility] [place] [address] EMERGENCY DEPARTMENT Observed: 01/29/2018 Status: F Source: [place] SUMMARY 5:00 PM [facility] REPOSITORY [facility] Medical Records Department [address] [place] [address] Emergency Department Summary 01/29/18 0947 MR#: [id number] Acct: [id number] Name: ZIYADGELY Deborah Rep #: [id number] : 1970 47 From: Chuck Zacarias MD PCP: Aron Palumbo MD Status: ADM IN - ER Visit Summary Date of Service: 01/29/18 Chief Complaint: Confusion History of Present Illness: The patient is a 47 F 3 of chronic pain, reflux, sjg-vxuttol-aqspolata diabetes, hypothyroidism and chronic back pain. Patient brought in by her significant other who has been her male stacker straightener for 20 years. He states he has never seen her like this. Last night she seemed confused. Since he was sleeping comfortably trouble waking her it was throughout the night. Since he is more confused today and he brought her in for evaluation. He denies any head injury or head trauma. No fever. No vomiting or diarrhea. No recent med changes. She is on chronic Percocet and fentanyl patches for chronic pain. He denies ever using any illicit drugs. Physical Examination: Middle-aged female no acute distress. Initial blood pressure 117/64. Pulse ox 94% on room air no signs of hypoxia. Her initial blood sugar is 146 per the nursing staff. HEENT exam no facial trauma. No scalp or head trauma. Pupils round reactive light. Her eyes are open. She is answering questions. There is no facial droop. Her slurred speech. Neck nontender no meningismus. Lungs clear to auscultation bilaterally. Heart regular rhythm no murmur. Chest wall nontender. Abdomen soft nondistended normal bowel sounds no peritoneal signs. She is moving all 4 extremities. Back exam nontender. Skin unremarkable. No petechiae or purpura. Neurologically she is awake she will answer questions. At times she does seem somewhat somnolent but easily arousable. She is confused to the day, month and year. She does seem confused. But has normal motor activity. Test Results: No acute abnormality reviewed by me read by the radiologist. Chest x-ray no acute abnormality. CBC white count 14,000 reviewing her old labs she has had multiple prior elevated white counts in the past. Normal H AND H. Electrolytes unremarkable. Gap is 6. Glucose 139. She does have elevated BUN and creatinine of 41 and 2.66. Her prior most recent creatinine was 1.2. Liver enzymes normal. UA 25-50 red cells otherwise unremarkable no signs of infection. Emergency Department Course and Treatment: Middle aged diabetic female with confusion and mental status change. Treatment Plan: Jc exam no change patient remains confused. She does not know day, month or year. She has no motor deficits. I spoke to the hospitalist Dr. Sánchez and he will evaluate her for admission for confusion. Disposition: Admission Impression: Acute confusion with decreased mental status uncertain etiology Chronic pain syndrome History of diabetes This note was generated with Adom[employer]ation software. It may contain incorrect words, spelling, and punctuation that were not noted in review of the chart prior to signing ED Disposition - Plan for ED Patient: Chief Complaint: Confusion Referrals: Aron Palumbo MD [Primary Care Provider] - What to do if you have Problems For any increased pain, shortness of breath, bleeding, nausea or vomiting, chest pain, or any unexpected problems, contact your Primary Care Provider. Call [facility] ([phone]) or report to the closest Emergency Room. Call 911 if necessary. 01/29/18 1700 <Electronically signed by Chuck Zacarias MD> Date Chuck Zacarias MD Cosigner Signature (If Indicated): Date CC: Aron Palumbo MD URINE DRUG SCREEN Collected: 01/29/2018 Status: F Source: [place] (VISTA) 4:15 PM [facility] REPOSITORY TYPE CODE TESTS RESULT OUT OF RANGE REFERENCE UNITS LAB L505.0075 TO BE Normal CONFIRMED Result Comment: CONFIRMATORY TESTING FOR ALL POSITIVE URINE DRUG SCREEN RESULTS WILL ONLY BE SENT OUT UPON PHYSICIAN ORDER. VISTA Urine Drug Screen methods provide only preliminary analytical test results. A more specific alternate chemical method must be used in order to obtain a confirmed analytical result. Gas chromatography/mass spectrometery (GC/MS) is the preferred confirmatory method. Clinical consideration and professional judgement should be applied to any drug of abuse test result, particularly when preliminary positive results are used. URINE TCA TESTING MUST BE ORDERED SEPARATELY. USE TEST MNEMONIC: [facility] LAB L505.5005 VISTA UDS PH 5 Normal LAB L505.5015 <1000 ng/mL AMPHETAMINES Normal NEGATIVE LAB L505.5025 < 200 ng/mL BARBITIURATES Normal NEGATIVE LAB L505.5035 < 200 ng/mL BENZODIAZIPINE Normal NEGATIVE LAB L505.5045 < 300 ng/mL COCAINE Normal NEGATIVE LAB L505.5055 < 500 ng/mL ECSTACY Normal NEGATIVE LAB L505.5065 < 300 ng/mL METHADONE Normal NEGATIVE LAB L505.5075 < 300 ng/mL OPIATES Normal NEGATIVE LAB L505.5085 < 25 ng/mL PCP Normal NEGATIVE LAB L505.5095 < 50 ng/mL THC Normal NEGATIVE Performed By: #### L505.5000 #### [facility] [address] [place], [address] URINALYSIS, COMPLETE Collected: 01/29/2018 Status: F Source: [place] 10:30 AM [facility] REPOSITORY Order Comment: Order Date: 01/29/18 Has pt arrived? Y How was Urine Obtained? CLEAN CATCH TYPE CODE TESTS RESULT OUT OF RANGE REFERENCE UNITS LAB L400.3000 Yellow COLOR Normal Yellow LAB L400.3050 Clear Normal CLARITY Clear LAB L400.3200 Normal mg/dl Normal GLUCOSE, UR Normal LAB L400.3300 Negative mg/dL Normal BILIRUBIN URINE Negative LAB L400.3400 Negative mg/dl Normal KETONE UR Negative LAB L400.3465 1.002-1.030 Normal SP.GR. DIPSTX 1.020 LAB L400.3550 5.0 - 8.0 pH UR Normal 5.0 LAB L400.3600 Negative mg/dl High PROT 15 DIPSTX LAB L400.3700 Normal mg/dl Normal UROBILI Normal LAB L400.3750 Negative Normal NITRITE UR Negative LAB L400.3780 Negative /ul High OCCULT BLOOD-UR 250 LAB L400.3800 Negative /ul LEUK Normal ESTERASE Negative LAB L400.4050 0-5 /hpf WBC 0 Normal SEEN LAB L400.4100 0-5 /hpf Normal RBC-UA 25-50 SEEN LAB L400.4150 5-10 /hpf SQUAM Normal EPI 0-5 SEEN LAB L400.4300 None Seen /hpf Normal BACTERIA RARE LAB L400.4350 <or=2+ /hpf 0 Normal MUCUS, URINE SEEN LAB L400.4400 0-5 /lpf Normal HYALINE CAST 0-5 SEEN Performed By: #### L400.0001 #### [facility] [address] [place], [address] CBC W/DIFF, AUTOMATED Collected: 01/29/2018 Status: F Source: [place] 9:50 AM [facility] REPOSITORY TYPE CODE TESTS RESULT OUT OF RANGE REFERENCE UNITS LAB L100.1000 4.4-11.0 K/mm3 High WBC 14.0 LAB L100.1200 4.2-5.4 M/mm3 Normal RBC 4.31 LAB L100.1300 12.0-15.0 g/dl Normal HGB 12.7 LAB L100.1400 37-47 % Normal HCT 39.2 LAB L100.1500 81-99 fL Normal MCV 91.0 LAB L100.1600 27.0-32.0 pg Normal MCH 29.5 LAB L100.1700 32-36 g/gl Normal MCHC 32.4 LAB L100.1810 11.6-14.6 % Normal RDW CV 14.3 LAB L100.1820 35.1-43.9 fl High RDW SD 47.5 LAB L100.1900 150-450 K/mm3 Normal PLT 330 LAB L100.2000 6.2-12.0 fl Normal MPV 9.3 LAB L100.2100 47-70 % Normal NEUT% 67.3 LAB L100.2200 19-41 % Normal LY% 25.7 LAB L100.2300 0-10 % Normal MONO% 5.1 LAB L100.2400 0-5 % Normal EO% 1.5 LAB L100.2500 0-1 % Normal BASO% 0.2 LAB L100.2550 0.0-0.9 % Normal IM GRAN % 0.200 Result Comment: IG% - Immature Granulocytes (promyelocytes, myelocytes and metamyelocytes) > 1% indicates that a LEFT SHIFT is Present. LAB L100.2620 2.0-7.7 X10 3/uL High Absolute Neut 9.4 LAB L100.2720 0.83-4.51 X10 3/ul Normal Absolute Lymph 3.59 Performed By: #### L100.0100 #### [facility] [address] [place], [place], [address] BASIC METABOLIC Collected: 01/29/2018 Status: F Source: [place] PROFILE (BMP) 9:50 AM [facility] REPOSITORY TYPE CODE TESTS RESULT OUT OF RANGE REFERENCE UNITS LAB L501.0100 74-106 mg/dL High GLU 139 Result Comment: Fasting Glucose result greater than or equal to 126 mg/dL suggests DIABETES MELLITUS per A.D.A. criteria. Please note revised GLUCOSE reference range effective 2017. LAB L501.1000 7-18 mg/dL High BUN 41 LAB L501.1100 0.55-1.02 mg/dL High CREAT,SERUM 2.66 Result Comment: The validity of the calculated GFR AND GFRAA in patients over 70 years has not been determined. Clinical correlation is essential. LAB L501.1110 >60 mL/min Low EST GFR 20 Result Comment: Non- GFR Calc LAB L501.1115 >60 mL/min Low EST GFR - AA 25 Result Comment: GFR Calc LAB L501.1255 ml/min Normal Estimated CRCL 23.27 LAB L501.1300 10-20 RATIO Normal BUN/CRE 15.4 LAB L501.2200 8.5-10 mg/dL Normal .1 CA 8.7 LAB L501.5300 136-14 mmol/L Normal 5 NA 141 LAB L501.5600 3.5-5. mmol/L Normal 1 K 5.1 LAB L501.5900 98-107 mmol/L High CL 111 LAB L501.6100 21.0-3 mmol/L Normal 2.0 CO2 24.0 LAB L501.6200 5-15 Normal GAP 6 Performed By: #### L500.2500, L500.3400 #### [facility] [address] [place], [address] LIVER PROFILE Collected: 01/29/2018 Status: F Source: [place] 9:50 AM [facility] REPOSITORY TYPE CODE TESTS RESULT OUT OF RANGE REFERENCE UNITS LAB L501.1500 6.4-8.2 g/dL Normal T PROT 7.4 LAB L501.1800 3.2-5.0 g/dL Normal ALB 3.8 LAB L501.1950 2.2-4.2 g/dL Normal GLOB 3.6 LAB L501.4100 15-37 U/L Normal AST 31 LAB L501.4305 45-117 U/L Normal ALK P 73 LAB L501.4405 13-56 U/L Normal ALT 29 LAB L501.4600 0.20-1.00 mg/dL Normal T BILI 0.60 LAB L501.4700 0.00-0.30 mg/dL Normal D BILI 0.13 Performed By: #### L500.2500, L500.3400 #### [facility] [address] [place], [address] HEMOGLOBIN A1C Collected: 01/29/2018 Status: F Source: [place] 9:50 AM [facility] REPOSITORY TYPE CODE TESTS RESULT OUT OF RANGE REFERENCE UNITS LAB L501.9985 4.2-6.3 % High HGB A1C 7.4 Performed By: #### L501.9985 #### [facility] [address] [place], [address] CHEST 1 VIEW Observed: 01/29/2018 Status: F Source: [place] (PORTABLE) 9:46 AM [facility] REPOSITORY [facility] Imaging Services [address] [place] [address] Chest 1 View (Portable) MR#: [id number] Acct: [id number] Name: GELY LACKEY Rep #: [id number] : 1970 F 47 From: Rufus Pike MD PCP: Aron Palumbo MD Status: REG ER Study: Chest 1 View (Portable) Date of Exam: 01/29/18 Exam# [id number] Ordering Dr: Chuck Zacarias MD STUDY: X-RAY CHEST REASON FOR EXAM: Female, 47 years old. Mental status changes. TECHNIQUE: Single AP portable view of the chest. COMPARISON: Comparison is made with prior study dated February 08, 2016. FINDINGS: EKG electrodes are seen. The lungs are clear and expanded. There is no demonstrated pleural abnormality. Normal size heart. Normal mediastinum and geovanna. Normal visualized pulmonary arteries. Normal visualized aortic arch and descending thoracic aorta. Normal visualized thoracic spine. Normal visualized ribs, clavicles, and shoulders. There is no demonstrated abnormality of the visualized soft tissue structures of the upper abdomen. RAD/Chest 1 View (Portable) IMPRESSION: Normal x-ray examination of the chest. Electronically Signed: Rufus Pike MD at 10:20 EDT Tel [phone], Service support , CC: Aron Palumbo MD; Chuck Zacarias MD Industrial Engineering Professor: Signed BRAIN/HEAD WITHOUT Observed: 01/29/2018 Status: F Source: [place] CONTRAST 9:46 AM [facility] REPOSITORY [facility] Imaging Services [address] [place] [address] Brain/Head without Contrast MR#: [id number] Acct: [id number] Name: GELY LACKEY Rep #: [id number] : 1970 F 47 From: Rufus Pike MD PCP: Linwood CRABTREE,Aron Status: REG ER Study: Brain/Head without Contrast Date of Exam: 01/29/18 Exam# [id number] Ordering Dr: Chuck Zacarias MD STUDY: CT BRAIN WITHOUT CONTRAST REASON FOR EXAM: Female, 47 years old. Contusion since last night. RADIATION DOSAGE (If Supplied By Facility): CTDIvol = ( 44.99 ) mGy, DLP = ( 745.49 ) mGycm TECHNIQUE: Transaxial CT imaging of the brain was performed without administration of intravenous contrast material. Individualized dose optimization techniques were used for this CT. COMPARISON: None. FINDINGS: Normal soft tissue structures. Normal calvarium. Normal size ventricles and extra-axial spaces for the patient's age. Normal white matter tracts of the cerebral hemispheres. Normal basal ganglia and thalami. Normal brainstem. Normal cerebellum. There is no intracranial hemorrhage. There are no findings of an acute ischemic infarction. Normal visualized paranasal sinuses. Empty sella. CT/Brain/Head without Contrast IMPRESSION: Normal unenhanced CT scan of the brain. Electronically Signed: Rufus Pike MD at 10:30 EDT Tel [phone], Service support , CC: Aron Palumbo MD; Chuck Zacarias MD Industrial Engineering Professor: Signed BEDSIDE GLUCOSE Collected: 01/29/2018 Status: F Source: [place] 9:30 AM [facility] REPOSITORY TYPE CODE TESTS RESULT OUT OF REFERENCE UNITS RANGE LAB L501.080 70-110 mg/dL High BEDSIDE GLU 146 Result Comment: MANAGEMENT OF PATIENT CARE PER NURSING PROTOCOL Performed By: #### L501.080 #### [facility] Point of Care [address] [place] [address] PROGRESS Observed: 01/22/2018 Status: COMPLETED Source: [place] 11:23 AM [facility] REPOSITORY HNO ID: [id number] Author: Vandana (Pt) Arnulfo Service: (none) Author Type: Physical Therapist Type: Progress Notes Filed: 01/22/2018 11:24 AM Note Text: [facility] PHYSICAL THERAPY DISCONTINUANCE OF CARE Plan of Care Period: Start of Care Date: 11/20/17 Last Visit Date: 12/04/17 Therapy Program: The following is a summary of the interventions provided for this episode of care; Therapeutic exercise Assessment: Based on most recent visit, patient was progressing slower than expected toward functional goals based on pain levels and documented subjective information on progress. Unable to formally assess goal achievement due to non-compliance with therapy plan of care. Reason for Discontinuation of Care: Patient has not returned to therapy or scheduled additional follow-up appointments. Vandana Arredondo PT GASTRIC EMPTYING Observed: 01/19/2018 Status: F Source: [place] STUDY 10:11 AM [facility] REPOSITORY [facility] Imaging Services [address] [place] [address] Gastric Emptying Study MR#: [id number] Acct: [id number] Name: GELY LACKEY Rep #: [id number] : 1970 F 47 From: Abdoul Harris DO PCP: Aron Palumbo MD Status: REG CLI Study: Gastric Emptying Study Date of Exam: 01/19/18 Exam# [id number] Ordering Dr: Nate Coyne MD CLINICAL: 47-year-old female with reported history of chronic abdominal pain. SEMI-SOLID PHASE 99m Tc SULFUR COLLOID GASTRIC EMPTYING STUDY COMPARISON: CT of the abdomen report 12/13/2017 FINDINGS: The patient was administered 1.1 mCi of 99m Tc sulfur colloid mixed with oatmeal and consumed per os. Image acquisitions in the anterior-posterior projections for a total of 60 minutes. There is prompt visualization of the stomach. There is no gastroesophageal reflux identified. First order kinetics are maintained throughout the duration of the acquisitions. The T1/2 linear fit was calculated to be 265.68 minutes, (Normal: 12-56 minutes). NM/Gastric Emptying Study IMPRESSION: 1. ABNORMAL 99m Tc sulfur colloid semi-solid phase (oatmeal) gastric emptying imaging examination. A. There is significantly delayed semi-solid phase gastric emptying compared to normal controls with maintained first order kinetics throughout all components of the examination. (Norberto healy al, J Nucl Med Tech 38: 186, 2010). Electronically Signed: Abdoul Harris DO at 13:31 EDT Tel , Service support , CC: Aron Palumbo MD; Nate Coyne Industrial Engineering Professor: Signed ORTHOPEDIC VISIT Observed: 12/15/2017 Status: F Source: [place] REPORT 11:49 AM [facility] [address] [place] [address] OFFICE VISIT Date of Service: 12/12/17 MR#: [id number] Acct: [id number] Name: ZIYADGELY L Rep #: [id number] : 1970 Provider: Margaret Tobin MD Age/Sex: 47/F Location: [facility] Status: Signed Intake Intake Visit Reasons: Low Back Is patient in pain?: Yes Allergies codeine Allergy (Verified 11/04/17 13:43) Rash nabumetone [From Relafen] Allergy (Verified 11/04/17 13:43) Rash Sulfa (Sulfonamide Antibiotics) Allergy (Verified 11/04/17 13:43) Rash albuterol Adverse Reaction (Uncoded 11/04/17 13:43) Laryngospasms Medications Cholecalciferol (Vitamin D3) [Vitamin D3] 2,000 unit PO DAILY 08/12/17 [History Confirmed 11/04/17] Duloxetine HCl 60 mg PO DAILY 08/12/17 [History Confirmed 11/04/17] Febuxostat [Uloric] 80 mg PO DAILY 08/12/17 [History Confirmed 11/04/17] Fentanyl [Duragesic] 25 mcg TRANSDERM. Q72H 08/12/17 [History Confirmed 11/04/17] Furosemide [Lasix] 20 mg PO DAILY PRN 08/12/17 [History Confirmed 11/04/17] Irbesartan [Avapro] 75 mg PO DAILY 08/12/17 [History Confirmed 11/04/17] Levothyroxine [Synthroid] 88 mcg PO DAILY 08/12/17 [History Confirmed 11/04/17] Linagliptin [Tradjenta] 5 mg PO DAILY 08/12/17 [History Confirmed 11/04/17] Montelukast [Singulair] 10 mg PO DAILY 08/12/17 [History Confirmed 11/04/17] Omeprazole [Prilosec] 20 mg PO DAILY 08/12/17 [History Confirmed 11/04/17] Oxycodone HCl/Acetaminophen [Percocet 7.5-325 mg Tablet] 1 ea PO Q8H 08/12/17 [History Confirmed 11/04/17] Potassium Citrate [Urocit-K] 15 meq PO DAILY 08/12/17 [History Confirmed 11/04/17] Pregabalin [Lyrica] 200 mg PO BID 08/12/17 [History Confirmed 11/04/17] Tizanidine HCl 4 mg PO BID 08/12/17 [History Confirmed 11/04/17] Topiramate [Topamax] 100 mg PO DAILY 08/12/17 [History Confirmed 11/04/17] Boric Acid 340 gm MC PRN PRN 11/04/17 [History Confirmed 11/04/17] Cetirizine HCl [All Day Allergy] 10 mg PO DAILY 11/04/17 [History Confirmed 11/04/17] Fluticasone/Vilanterol [Breo Ellipta 200-25 Mcg INH] 1 ea IH DAILY 11/04/17 [History Confirmed 11/04/17] Hydroxyzine HCl 12.5 mg PO Q8 PRN 11/04/17 [History Confirmed 11/04/17] Lidocaine [Lidoderm Patch] 2 patch TOPICAL DAILY 11/04/17 [History Confirmed 11/04/17] Metformin HCl 1,000 mg PO BID 11/04/17 [History Confirmed 11/04/17] Sodium Chloride [Saline Nasal [place]] 30 ml NS Q2H PRN PRN 11/04/17 [History Confirmed 11/04/17] PFSH Medical History Diabetes (Acute) Surgical History Previous section (Inactive) gallbladder removal (Inactive) Social History Smoking Status: Current every day smoker alcohol intake: never HPI Low Back: Details: GELY LACKEY is a 47 year old F here today for a followup on low back pain. Patient notes that her pain radiates up her lumbar spine and down into her left ankle. She has 25% back pain and 75% bilateral buttock, posterior thigh, posterior calf pain. It is worse with sitting and standing. It is improved when she continues to move and change positions. She has had physical therapy, which did not help. It helped with desensitization. She denies bowel or bladder issues. She continues to smoke. She is accompanied by her sister. She was started on baclofen by her PCP. ROS Const Reports system reviewed and no additional complaints, except as docu Eyes Reports system reviewed and no additional complaints, except as docu ENT Reports system reviewed and no additional complaints, except as docu Card Reports system reviewed and no additional complaints, except as docu Resp Reports system reviewed and no additional complaints, except as docu GI Reports system reviewed and no additional complaints, except as docu Reports system reviewed and no additional complaints, except as docu Musc Reports muscle weakness, Reports back pain Skin/Breast Reports system reviewed and no additional complaints, except as docu Neuro Yes system reviewed and no additional complaints, except as docu Psych Reports system reviewed and no additional complaints, except as docu Endo Reports system reviewed and no additional complaints, except as docu Ortho Exam Spine Neuro: Yes Straight Leg Raise (negative bilaterally) and Sahu's (negative bilaterally) General: alert, oriented x3 Capillary Refill <2sec: Yes Gait: normal gait Motor: strength 5/5 throughout Sensory Exam: no sensory deficits noted DTR's: Rt Patellar: 2+, Lt Patellar: 2+, Rt Ankle: 2+, Lt Ankle: 2+ Plantar Reflexes: Downgoing: bilateral Coordination: tandem gait normal, Romberg test normal SPINE TESTING CERVICAL THORACIC LUMBAR Musculoskeletal General: Yes normal posture Thoracic/Lumbar Spine: straight leg raise negative bilaterally, thoraco-lumbar ROM limited, paraspinal tenderness, pain with thoraco-lumbar ROM (worse with lumbar extension) Strength 0=absent - 5=normal R Hip Flexor (L1-3): 5, L Hip Flexor (L1-3): 5, R Quadriceps (L2-4): 5, L Quadriceps (L2-4): 5, R Anterior Tibialis (L4-5): 5, L Anterior Tibialis (L4-5): 5, R Hamstrings (L5-S1): 5, L Hamstrings (L5-S1): 5, GS (S1): 5, L GS (S1): 5, R Peroneals (S1): 5, L Peroneals (S1): 5 Assessment AND Plan Problems 1. Chronic bilateral low back pain, with sciatica presence unspecified M54.5; G89.29 Plan Imaging: MRI lumbar spine - diffuse spondylosis with left L5-S1 foraminal stenosis, moderate L4-5 stenosis I/R/P: 1. back pain 2. bilateral leg pain 3. nicotine use Ms. Lackey returns today with back and bilateral leg pain. Her imaging reveals moderate stenosis; however, her symtpoms are not typical for neurogenic claudication. Surgical intervention at this time is not recommended. Recommend continued management with her pain physician, Dr. Cordova. She will contact us with any issues or concerns. Plan of care discussed. All questions answered. She and her sister are in understanding. Coding Level of Care Code Off vis,new,level 4 Diagnoses Chronic bilateral low back pain, with sciatica presence unspecified M54.5; G89.29 Back pain location: low back pain Chronicity: chronic Back pain laterality: bilateral Sciatica presence: unspecified whether sciatica present 12/15/17 1149 <Electronically signed by Margaret Tobin MD> Date Margaret Tobin MD Cosigner Signature: Date (if applicable) CC: CREATININE FINGERSTICK Collected: 12/13/2017 Status: F Source: [place] 3:53 PM [facility] REPOSITORY TYPE CODE TESTS RESULT OUT OF REFERENCE UNITS RANGE LAB L9100.0210 0.55-1.02 mg/dL High CREATININE WB 1.2 LAB L9100.0220 >60 mL/min Low EGFR WB 50.0000 Performed By: #### L9100.0200 #### [facility] Point of Care [address] [place] [address] ABDOMEN WITH IV Observed: 12/13/2017 Status: F Source: [place] CONTRAST 3:45 PM [facility] REPOSITORY [facility] Imaging Services [address] [place] [address] Abdomen WITH IV Contrast MR#: [id number] Acct: [id number] Name: GELY LACKEY Rep #: [id number] : 1970 F 47 From: Boy Castañeda MD PCP: Aron Palumbo MD Status: REG CLI Study: Abdomen WITH IV Contrast Date of Exam: 12/13/17 Exam# [id number] Ordering Dr: Aron Palumbo MD STUDY: CT ABDOMEN WITH CONTRAST REASON FOR EXAM: Female, 47 years old. Persistent epigastric pain. RADIATION DOSAGE (If Supplied By Facility): CTDIvol = ( 20.34 ) mGy, DLP = ( 870.54 ) mGycm TECHNIQUE: Transaxial images were obtained post I.V. administration of 100mL ml of Isovue 300 contrast, and with oral contrast. Sagittal and coronal images were reconstructed. Individualized dose optimization techniques were used for this CT. COMPARISON: 02/25/2016. FINDINGS: The visualized lung bases are unremarkable. The visualized portions of the heart are within normal limits. There is decreased attenuation of the liver consistent with steatosis. There is marked hepatomegaly. There is non-visualization of the gallbladder, which may be secondary to either contraction or a prior cholecystectomy. Normal spleen. Normal pancreas. Normal bilateral adrenal glands. No acute abnormalities of the kidneys. Both kidneys show small cortical scars. Both kidneys show partial duplication with pronounced on the left. Stable nonobstructing 1 mm stone in the lower pole of the right kidney. Stable 7 mm nonobstructing stone in the lower pole of left kidney. Normal visualized stomach. Normal small intestine. Normal colon. There is non-visualization of the appendix. Normal abdominal aorta. Normal inferior vena cava. There is borderline retroperitoneal lymphadenopathy with enlarged nodes no greater than 10mm in the short axis diameter. Normal abdominal wall. There are diffuse degenerative changes of the visualized lumbar spine. CT/Abdomen WITH IV Contrast IMPRESSION: There is no definite acute abnormality. Marked fatty liver and hepatomegaly. Bilateral duplicated and scarred kidneys, with nonobstructing renal stones. Electronically Signed: Boy Castañeda MD at 16:41 EST , Service support , CC: Aron Palumbo MD Industrial Engineering Professor: Signed PROGRESS Observed: 12/04/2017 Status: COMPLETED Source: [place] 4:23 PM [facility] REPOSITORY HNO ID: [id number] Author: Vandana (Pt) Arnulfo Service: (none) Author Type: Physical Therapist Type: Progress Notes Filed: 12/04/2017 7:01 PM Note Text: Episode Visit Count: 4 Therapist That Will Oversee The Plan Of Care: Vandana Arredondo Start of Care Date: 11/20/17 Plan of Care Certification Date: 11/20/17 [facility] PHYSICAL THERAPY TREATMENT NOTE ASSESSMENT: Gely Lackey demonstrated difficulty with gait, transfers and exercises today. Fair response to addition of seated stepper with no increased pain. The patient will continue to benefit from continued skilled physical therapy for core strengthening, ROM and pain control. PLAN FOR NEXT VISIT: May trial gentle manual pelvic traction depending on symptom response. SUBJECTIVE: Pt states she has not had any relief of her migraine since last week. She continues to perform her HEP. She reports having a follow up appt with her family doctor on Monday. Pain Score: 10/10 Pain Location: Low Back/Lumbar Spine - Right;Low Back/Lumbar Spine - Left (migraine continues since last Monday) Frequency: Continuous Post Treatment Pain Score: No Change OBJECTIVE MEASURES WITH LEVEL OF FUNCTION: Gait Assessment Gait Observation: Gait is a little improved from previous visit with increased carlyn and decreased antalgia. Functional Strength Functional Strength: Pt demonstrating difficulty with transfers d/t low back pain and migraine headache. TREATMENT: Therapeutic Exercise: 1: seated stepper, seat 13, WL 1.0 x 5 min 2: supine isometric abdominal 5 sec holds 1 x 10 reps. Deferred second set d/t increased pain last few reps of first set. 3: supine pelvic tilts within limited, comfortable ROM x 10 reps 4: supine gluteal sets 5 sec holds 2 x 10 reps 5: seated lumbar flexion stretch 20 sec hold x 10 reps Skilled Intervention: Patient was educated in proper exercise technique and purpose for exercises. Reviewed and educated patient on additions/changes for home exercise program and pt to modify sets/reps per symptoms. Skilled judgment was provided in selection of appropriate interventions. Correct performance of therapeutic exercises was facilitated with verbal and visual cuing. Patient education as noted. Billing: [facility]: Therapeutic Exercise ([id number]): 1:1 time: 45 minutes (3 units: 38-52 mins) Total time: 45 minutes Vandana Arredondo PT CNTHERAPY Observed: 12/04/2017 Status: COMPLETED Source: [place] 4:15 PM [facility] REPOSITORY OT/PT/Speech Visit (PTWS) GELY LACKEY ([id number]) 1970 F Date Time Provider Department 12/04/17 4:15 PM VANDANA ARREDONDOPT) PTWS Date Time Provider Department Center 12/04/2017 4:15 PM [id number] ARREDONDOPT) PTWS [facility] Reason for Visit: Physical Therapy [503] PT Discharge [752] Reason For Visit History Recorded Primary Visit Diagnosis:Low back pain, unspecified back pain laterality, unspecified chronicity, with sciatica presence unspecified [M54.5] Allergies As of Date: 12/04/2017 Noted Allergy Reaction ALLOPURINOL 01/20/2015 2 - Rash ALLOPURINOL 08/10/2015 4 - Hives CODEINE 03/17/2008 4 - Hives Comments: itching,swelling CODEINE 08/10/2015 4 - Hives RELAFEN (NABUMETONE) 08/10/2015 4 - Hives SULFA (SULFONAMIDE ANTIBIOTICS) 03/17/2008 4 - Hives Comments: swelling,itching SULFUR-SOD SUL,THIOSUL-MFOLATE 08/10/2015 4 - Hives Date Reviewed: 10/20/2015 Reviewed by: Jose Singh - Fully Assessed Prescriptions as of 12/04/2017 Sig: HYDROCODONE 7.5 MG-ACETAMINOP* MONTELUKAST 10 MG TABLET LYRICA 100 MG CAPSULE SELENIUM 200 MCG TABLET SERTRALINE 100 MG TABLET SALINE NOSE 0.65 % SPRAY AERO* TIZANIDINE 4 MG TABLET TOPIRAMATE 50 MG TABLET TEGADERM FRAME STYLE 4 X 4 3* LIDOCAINE 5 % TOPICAL PATCH Apply 1 Patch as directed nely* POLYETHYLENE GLYCOL 3350 17 G* Take 17 g by mouth once daily* ASMANEX TWISTHALER INHALATION Inhale as instructed. TRAMADOL 50 MG TABLET SPIRIVA WITH HANDIHALER 18 MC* SELENOMETHIONINE 200 MCG TABL* FIBER LAXATIVE (PSYLLIUM HUSK* as needed. POTASSIUM CITRATE ER 15 MEQ (* PRILOSEC OTC 20 MG TABLET,DEL* NORTRIPTYLINE 25 MG CAPSULE DULERA 200 MCG-5 MCG/ACTUATIO* MAGNESIUM OXIDE 400 MG TABLET LOSARTAN 25 MG TABLET HYDROXYZINE HCL 25 MG TABLET FUROSEMIDE 20 MG TABLET FLUTICASONE 50 MCG/ACTUATION * FENTANYL 25 MCG/HR TRANSDERMA* COD LIVER OIL CAPSULE BACLOFEN 20 MG TABLET FEBUXOSTAT 80 MG TABLET Take by mouth once daily. VITAMIN B COMPLEX TABLET Take 1 tablet by mouth once d* LEVOTHYROXINE 88 MCG TABLET Take 88 mcg by mouth daily be* PREGABALIN 75 MG CAPSULE Take 75 mg by mouth three caroline* CETIRIZINE 10 MG TABLET Take 10 mg by mouth once celio* NAPROXEN 500 MG TABLET Take 500 mg by mouth twice da* Progress Notes: Vandana Arredondo PT 12/04/2017 7:01 PM Signed Episode Visit Count: 4 Therapist That Will Oversee The Plan Of Care: ArnulfoBethVandana Start of Care Date: 11/20/17 Plan of Care Certification Date: 11/20/17 REHABILITATION AND SPORTS THERAPY PHYSICAL THERAPY TREATMENT NOTE ASSESSMENT: Gely Lackey demonstrated difficulty with gait, transfers and exercises today. Fair response to addition of seated stepper with no increased pain. The patient will continue to benefit from continued skilled physical therapy for core strengthening, ROM and pain control. PLAN FOR NEXT VISIT: February trial gentle manual pelvic traction depending on symptom response. SUBJECTIVE: Pt states she has not had any relief of her migraine since last week. She continues to perform her HEP. She reports having a follow up appt with her family doctor on Monday. Pain Score: 10/10 Pain Location: Low Back/Lumbar Spine - Right;Low Back/Lumbar Spine - Left (migraine continues since last Monday) Frequency: Continuous Post Treatment Pain Score: No Change OBJECTIVE MEASURES WITH LEVEL OF FUNCTION: Gait Assessment Gait Observation: Gait is a little improved from previous visit with increased carlyn and decreased antalgia. Functional Strength Functional Strength: Pt demonstrating difficulty with transfers d/t low back pain and migraine headache. TREATMENT: Therapeutic Exercise: 1: seated stepper, seat 13, WL 1.0 x 5 min 2: supine isometric abdominal 5 sec holds 1 x 10 reps. Deferred second set d/t increased pain last few reps of first set. 3: supine pelvic tilts within limited, comfortable ROM x 10 reps 4: supine gluteal sets 5 sec holds 2 x 10 reps 5: seated lumbar flexion stretch 20 sec hold x 10 reps Skilled Intervention: Patient was educated in proper exercise technique and purpose for exercises. Reviewed and educated patient on additions/changes for home exercise program and pt to modify sets/reps per symptoms. Skilled judgment was provided in selection of appropriate interventions. Correct performance of therapeutic exercises was facilitated with verbal and visual cuing. Patient education as noted. Billing: [facility]: Therapeutic Exercise ([id number]): 1:1 time: 45 minutes (3 units: 38-52 mins) Total time: 45 minutes Vandana Arredondo, PT Vandana Arredondo PT 01/22/2018 11:24 AM Signed [facility]ERAPY PHYSICAL THERAPY DISCONTINUANCE OF CARE Plan of Care Period: Start of Care Date: 11/20/17 Last Visit Date: 12/04/17 Therapy Program: The following is a summary of the interventions provided for this episode of care; Therapeutic exercise Assessment: Based on most recent visit, patient was progressing slower than expected toward functional goals based on pain levels and documented subjective information on progress. Unable to formally assess goal achievement due to non-compliance with therapy plan of care. Reason for Discontinuation of Care: Patient has not returned to therapy or scheduled additional follow-up appointments. Vandana Arredondo PT PROGRESS Observed: 12/01/2017 Status: COMPLETED Source: [place] 2:50 PM [facility] REPOSITORY O ID: [id number] Author: Vandana (Pt) Arnulfo Service: (none) Author Type: Physical Therapist Type: Progress Notes Filed: 12/01/2017 4:11 PM Note Text: Episode Visit Count: 3 Therapist That Will Oversee The Plan Of Care: Vandana Arredondo Start of Care Date: 11/20/17 Plan of Care Certification Date: 11/20/17 REHABILITATION AND SPORTS THERAPY PHYSICAL THERAPY TREATMENT NOTE ASSESSMENT: Gely Lackey demonstrated difficulty with increased pain and migraine headache today. Did not advance HEP today d/t increased pain and migraine. The patient will continue to benefit from continued skilled physical therapy for core strengthening and ROM to allow for improved function with pain reduction. PLAN FOR NEXT VISIT: Assess response to today's treatment and progression of HEP. Cotninue to advance per symptoms tolerance. May trial on seated stepper or recumbant stationary bike. SUBJECTIVE: Pt reports she felt better after her previous therapy session, then on Monday onset of migrain that has not resolved. Pain Score: 9/10 (Pt states almost a 10.) Pain Location: Low Back/Lumbar Spine - Right;Low Back/Lumbar Spine - Left (migraine back of head) Frequency: Continuous OBJECTIVE MEASURES WITH LEVEL OF FUNCTION: Gait Assessment Gait Observation: More labored, slower carlyn today. Pt amb with straight cane. TREATMENT: Therapeutic Exercise: 1: Attempted passive SKC, but caused increased lumbar pain so discontinued. 2: supine isometric abdominal 5 sec holds 2 x 10 reps 3: supine gluteal sets 5 sec holds 2 x 10 reps 4: supine pelvic tilts within limited, comfortable ROM x 10 reps 5: seated lumbar flexion stretch 20 sec hold x 10 reps Skilled Intervention: Patient was educated in proper exercise technique and purpose for exercises. Reviewed and educated patient on additions/changes for home exercise program increase sets of exercise per symptom tolerance. Skilled judgment was provided in selection of appropriate interventions. Correct performance of therapeutic exercises was facilitated with verbal and visual cuing. Patient education as noted. Educated pt in modifications to daily activities, positioning, and exercises to allow for improved function without increased pain. Billing: [facility]: Therapeutic Exercise ([id number]): 1:1 time: 40 minutes (3 units: 38-52 mins) Total time: 40 minutes Vandana Arredondo PT CNTHERAPY Observed: 12/01/2017 Status: COMPLETED Source: [place] 2:30 PM [facility] REPOSITORY OT/PT/Speech Visit (PTWS) GELY LACKEY ([id number]) 1970 F Date Time Provider Department 12/01/17 2:30 PM VANDANA ARREDONDO (PT) PTWS Date Time Provider Department Center 12/01/2017 2:30 PM [id number] ARREDONDO (PT) PTWS [facility] Reason for Visit: Physical Therapy [503] Primary Visit Diagnosis:Low back pain, unspecified back pain laterality, unspecified chronicity, with sciatica presence unspecified [M54.5] Allergies As of Date: 12/01/2017 Noted Allergy Reaction ALLOPURINOL 01/20/2015 2 - Rash ALLOPURINOL 08/10/2015 4 - Hives CODEINE 03/17/2008 4 - Hives Comments: itching,swelling CODEINE 08/10/2015 4 - Hives RELAFEN (NABUMETONE) 08/10/2015 4 - Hives SULFA (SULFONAMIDE ANTIBIOTICS) 03/17/2008 4 - Hives Comments: swelling,itching SULFUR-SOD SUL,THIOSUL-MFOLATE 08/10/2015 4 - Hives Date Reviewed: 10/20/2015 Reviewed by: Jose Singh - Fully Assessed Prescriptions as of 12/01/2017 Sig: HYDROCODONE 7.5 MG-ACETAMINOP* MONTELUKAST 10 MG TABLET LYRICA 100 MG CAPSULE SELENIUM 200 MCG TABLET SERTRALINE 100 MG TABLET SALINE NOSE 0.65 % SPRAY AERO* TIZANIDINE 4 MG TABLET TOPIRAMATE 50 MG TABLET TEGADERM FRAME STYLE 4 X 4 3* LIDOCAINE 5 % TOPICAL PATCH Apply 1 Patch as directed nely* POLYETHYLENE GLYCOL 3350 17 G* Take 17 g by mouth once daily* ASMANEX TWISTHALER INHALATION Inhale as instructed. TRAMADOL 50 MG TABLET SPIRIVA WITH HANDIHALER 18 MC* SELENOMETHIONINE 200 MCG TABL* FIBER LAXATIVE (PSYLLIUM HUSK* as needed. POTASSIUM CITRATE ER 15 MEQ (* PRILOSEC OTC 20 MG TABLET,DEL* NORTRIPTYLINE 25 MG CAPSULE DULERA 200 MCG-5 MCG/ACTUATIO* MAGNESIUM OXIDE 400 MG TABLET LOSARTAN 25 MG TABLET HYDROXYZINE HCL 25 MG TABLET FUROSEMIDE 20 MG TABLET FLUTICASONE 50 MCG/ACTUATION * FENTANYL 25 MCG/HR TRANSDERMA* COD LIVER OIL CAPSULE BACLOFEN 20 MG TABLET FEBUXOSTAT 80 MG TABLET Take by mouth once daily. VITAMIN B COMPLEX TABLET Take 1 tablet by mouth once d* LEVOTHYROXINE 88 MCG TABLET Take 88 mcg by mouth daily be* PREGABALIN 75 MG CAPSULE Take 75 mg by mouth three caroline* CETIRIZINE 10 MG TABLET Take 10 mg by mouth once celio* NAPROXEN 500 MG TABLET Take 500 mg by mouth twice da* Progress Notes: Vandana Arredondo, PT 12/01/2017 4:11 PM Signed Episode Visit Count: 3 Therapist That Will Oversee The Plan Of Care: Vandana Arredondo Start of Care Date: 11/20/17 Plan of Care Certification Date: 11/20/17 REHABILITATION AND SPORTS THERAPY PHYSICAL THERAPY TREATMENT NOTE ASSESSMENT: Gely Lackey demonstrated difficulty with increased pain and migraine headache today. Did not advance HEP today d/t increased pain and migraine. The patient will continue to benefit from continued skilled physical therapy for core strengthening and ROM to allow for improved function with pain reduction. PLAN FOR NEXT VISIT: Assess response to today's treatment and progression of HEP. Cotninue to advance per symptoms tolerance. May trial on seated stepper or recumbant stationary bike. SUBJECTIVE: Pt reports she felt better after her previous therapy session, then on Monday onset of migrain that has not resolved. Pain Score: 9/10 (Pt states almost a 10.) Pain Location: Low Back/Lumbar Spine - Right;Low Back/Lumbar Spine - Left (migraine back of head) Frequency: Continuous OBJECTIVE MEASURES WITH LEVEL OF FUNCTION: Gait Assessment Gait Observation: More labored, slower carlyn today. Pt amb with straight cane. TREATMENT: Therapeutic Exercise: 1: Attempted passive SKC, but caused increased lumbar pain so discontinued. 2: supine isometric abdominal 5 sec holds 2 x 10 reps 3: supine gluteal sets 5 sec holds 2 x 10 reps 4: supine pelvic tilts within limited, comfortable ROM x 10 reps 5: seated lumbar flexion stretch 20 sec hold x 10 reps Skilled Intervention: Patient was educated in proper exercise technique and purpose for exercises. Reviewed and educated patient on additions/changes for home exercise program increase sets of exercise per symptom tolerance. Skilled judgment was provided in selection of appropriate interventions. Correct performance of therapeutic exercises was facilitated with verbal and visual cuing. Patient education as noted. Educated pt in modifications to daily activities, positioning, and exercises to allow for improved function without increased pain. Billing: [facility]: Therapeutic Exercise ([id number]): 1:1 time: 40 minutes (3 units: 38-52 mins) Total time: 40 minutes Vandana Arredondo PT PROGRESS Observed: 11/27/2017 Status: COMPLETED Source: [place] 4:28 PM [facility] REPOSITORY HNO ID: [id number] Author: Vandana (Pt) Arnulfo Service: (none) Author Type: Physical Therapist Type: Progress Notes Filed: 11/27/2017 6:58 PM Note Text: Episode Visit Count: 2 Therapist That Will Oversee The Plan Of Care: Vandana Arredondo Start of Care Date: 11/20/17 Plan of Care Certification Date: 11/20/17 REHABILITATION AND SPORTS THERAPY PHYSICAL THERAPY TREATMENT NOTE ASSESSMENT: Gely Lackey demonstrated improvements in transfers onto and off of the plinth. She demonstrates compliance with HEP. The patient will continue to benefit from continued skilled physical therapy for core strengthening and ROM for lumbar spine. PLAN FOR NEXT VISIT: Continue to monitor response to exercises and HEP. Progress core strengthening as symptoms tolerate. SUBJECTIVE: Pt reports she started having more pain on Monday and a migraine today. She is not able to take pain medicine and drive. Used TENS unit earlier today with temporary relief. Pain Score: (A very high 9 and a half) Pain Location: Low Back/Lumbar Spine - Right;Low Back/Lumbar Spine - Left Frequency: Continuous Post Treatment Pain Score: (I can't rate it, but it's better. I can move R leg easier.) OBJECTIVE MEASURES WITH LEVEL OF FUNCTION: Pt demonstrated improved transfers onto and off of the plinth today compared to initial evaluation. TREATMENT: Therapeutic Exercise: 1: supine SKC stretches using towel for assist (gentle to tolerance) x 3 each leg 2: seated lumbar flexion stretch 20 sec hold x 5 reps 3: supine isometric abdominal 5 sec holds x 10 reps 4: supine pelvic tilts within limited, comfortable ROM x 10 reps 5: supine gluteal sets 5 sec holds 1 x 10 reps Skilled Intervention: Patient was educated in proper exercise technique and purpose for exercises. Reviewed and educated patient on additions/changes for home exercise program pt to add gluteal sets and increase reps of others as noted. Skilled judgment was provided in selection of appropriate interventions. Provided written instruction for home exercise program to facilitate proper performance and compliance. Correct performance of therapeutic exercises was facilitated with verbal and visual cuing. Patient education as noted. Billing: [facility]: Therapeutic Exercise ([id number]): 1:1 time: 43 minutes (3 units: 38-52 mins) Total time: 43 minutes Vandana Arredondo PT CNTHERAPY Observed: 11/27/2017 Status: COMPLETED Source: [place] 4:15 PM [facility] REPOSITORY OT/PT/Speech Visit (PTWS) GELY LACKEY ([id number]) 1970 F Date Time Provider Department 11/27/17 4:15 PM VANDANA ARREDONDO (PT) PTWS Date Time Provider Department Center 11/27/2017 4:15 PM [id number] ARREDONDO (PT) PTWS [facility] Reason for Visit: Physical Therapy [503] Primary Visit Diagnosis:Low back pain, unspecified back pain laterality, unspecified chronicity, with sciatica presence unspecified [M54.5] Allergies As of Date: 11/27/2017 Noted Allergy Reaction ALLOPURINOL 01/20/2015 2 - Rash ALLOPURINOL 08/10/2015 4 - Hives CODEINE 03/17/2008 4 - Hives Comments: itching,swelling CODEINE 08/10/2015 4 - Hives RELAFEN (NABUMETONE) 08/10/2015 4 - Hives SULFA (SULFONAMIDE ANTIBIOTICS) 03/17/2008 4 - Hives Comments: swelling,itching SULFUR-SOD SUL,THIOSUL-MFOLATE 08/10/2015 4 - Hives Date Reviewed: 10/20/2015 Reviewed by: Jose Singh - Fully Assessed Prescriptions as of 11/27/2017 Sig: HYDROCODONE 7.5 MG-ACETAMINOP* MONTELUKAST 10 MG TABLET LYRICA 100 MG CAPSULE SELENIUM 200 MCG TABLET SERTRALINE 100 MG TABLET SALINE NOSE 0.65 % SPRAY AERO* TIZANIDINE 4 MG TABLET TOPIRAMATE 50 MG TABLET TEGADERM FRAME STYLE 4 X 4 3* LIDOCAINE 5 % TOPICAL PATCH Apply 1 Patch as directed nely* POLYETHYLENE GLYCOL 3350 17 G* Take 17 g by mouth once daily* ASMANEX TWISTHALER INHALATION Inhale as instructed. TRAMADOL 50 MG TABLET SPIRIVA WITH HANDIHALER 18 MC* SELENOMETHIONINE 200 MCG TABL* FIBER LAXATIVE (PSYLLIUM HUSK* as needed. POTASSIUM CITRATE ER 15 MEQ (* PRILOSEC OTC 20 MG TABLET,DEL* NORTRIPTYLINE 25 MG CAPSULE DULERA 200 MCG-5 MCG/ACTUATIO* MAGNESIUM OXIDE 400 MG TABLET LOSARTAN 25 MG TABLET HYDROXYZINE HCL 25 MG TABLET FUROSEMIDE 20 MG TABLET FLUTICASONE 50 MCG/ACTUATION * FENTANYL 25 MCG/HR TRANSDERMA* COD LIVER OIL CAPSULE BACLOFEN 20 MG TABLET FEBUXOSTAT 80 MG TABLET Take by mouth once daily. VITAMIN B COMPLEX TABLET Take 1 tablet by mouth once d* LEVOTHYROXINE 88 MCG TABLET Take 88 mcg by mouth daily be* PREGABALIN 75 MG CAPSULE Take 75 mg by mouth three caroline* CETIRIZINE 10 MG TABLET Take 10 mg by mouth once celio* NAPROXEN 500 MG TABLET Take 500 mg by mouth twice da* Progress Notes: Vandana Arredondo, PT 11/27/2017 6:58 PM Signed Episode Visit Count: 2 Therapist That Will Oversee The Plan Of Care: Vandana Arredondo Start of Care Date: 11/20/17 Plan of Care Certification Date: 11/20/17 REHABILITATION AND SPORTS THERAPY PHYSICAL THERAPY TREATMENT NOTE ASSESSMENT: Gely Lackey demonstrated improvements in transfers onto and off of the plinth. She demonstrates compliance with HEP. The patient will continue to benefit from continued skilled physical therapy for core strengthening and ROM for lumbar spine. PLAN FOR NEXT VISIT: Continue to monitor response to exercises and HEP. Progress core strengthening as symptoms tolerate. SUBJECTIVE: Pt reports she started having more pain on Monday and a migraine today. She is not able to take pain medicine and drive. Used TENS unit earlier today with temporary relief. Pain Score: (A very high 9 and a half) Pain Location: Low Back/Lumbar Spine - Right;Low Back/Lumbar Spine - Left Frequency: Continuous Post Treatment Pain Score: (I can't rate it, but it's better. I can move R leg easier.) OBJECTIVE MEASURES WITH LEVEL OF FUNCTION: Pt demonstrated improved transfers onto and off of the plinth today compared to initial evaluation. TREATMENT: Therapeutic Exercise: 1: supine SKC stretches using towel for assist (gentle to tolerance) x 3 each leg 2: seated lumbar flexion stretch 20 sec hold x 5 reps 3: supine isometric abdominal 5 sec holds x 10 reps 4: supine pelvic tilts within limited, comfortable ROM x 10 reps 5: supine gluteal sets 5 sec holds 1 x 10 reps Skilled Intervention: Patient was educated in proper exercise technique and purpose for exercises. Reviewed and educated patient on additions/changes for home exercise program pt to add gluteal sets and increase reps of others as noted. Skilled judgment was provided in selection of appropriate interventions. Provided written instruction for home exercise program to facilitate proper performance and compliance. Correct performance of therapeutic exercises was facilitated with verbal and visual cuing. Patient education as noted. Billing: [facility]: Therapeutic Exercise ([id number]): 1:1 time: 43 minutes (3 units: 38-52 mins) Total time: 43 minutes Vandana Arredondo PT ORTHOPEDIC VISIT Observed: 11/25/2017 Status: F Source: [facility] REPORT 10:24 PM [facility] REPOSITORY [facility] [address] [place] [address] OFFICE VISIT Date of Service: 11/07/17 MR#: [id number] Acct: [id number] Name: GELY LACKEY Rep #: [id number] : 1970 Provider: Margaret Tobin MD Age/Sex: 47/F Location: [facility] [place] Status: Signed with Addenda ADDENDUM by Margaret Tobin MD on 11/25/17 at 2223 Addendum entered and electronically signed by Margaret Tobin MD 11/25/17 22:23: BMI 46 11/25/174 <Electronically signed by Margaret Tobin MD> Date Margaret Tobin MD cc: Aron Palumbo MD * Signed Intake Intake Visit Reasons: Lumbar pain Is patient in pain?: Yes Pain scale (1-10): 9 Allergies codeine Allergy (Verified 11/04/17 13:43) Rash nabumetone [From Relafen] Allergy (Verified 11/04/17 13:43) Rash Sulfa (Sulfonamide Antibiotics) Allergy (Verified 11/04/17 13:43) Rash albuterol Adverse Reaction (Uncoded 11/04/17 13:43) Laryngospasms Medications Cholecalciferol (Vitamin D3) [Vitamin D3] 2,000 unit PO DAILY 08/12/17 [History Confirmed 11/04/17] Duloxetine HCl 60 mg PO DAILY 08/12/17 [History Confirmed 11/04/17] Febuxostat [Uloric] 80 mg PO DAILY 08/12/17 [History Confirmed 11/04/17] Fentanyl [Duragesic] 25 mcg TRANSDERM. Q72H 08/12/17 [History Confirmed 11/04/17] Furosemide [Lasix] 20 mg PO DAILY PRN 08/12/17 [History Confirmed 11/04/17] Irbesartan [Avapro] 75 mg PO DAILY 08/12/17 [History Confirmed 11/04/17] Levothyroxine [Synthroid] 88 mcg PO DAILY 08/12/17 [History Confirmed 11/04/17] Linagliptin [Tradjenta] 5 mg PO DAILY 08/12/17 [History Confirmed 11/04/17] Montelukast [Singulair] 10 mg PO DAILY 08/12/17 [History Confirmed 11/04/17] Omeprazole [Prilosec] 20 mg PO DAILY 08/12/17 [History Confirmed 11/04/17] Oxycodone HCl/Acetaminophen [Percocet 7.5-325 mg Tablet] 1 ea PO Q8H 08/12/17 [History Confirmed 11/04/17] Potassium Citrate [Urocit-K] 15 meq PO DAILY 08/12/17 [History Confirmed 11/04/17] Pregabalin [Lyrica] 200 mg PO BID 08/12/17 [History Confirmed 11/04/17] Tizanidine HCl 4 mg PO BID 08/12/17 [History Confirmed 11/04/17] Topiramate [Topamax] 100 mg PO DAILY 08/12/17 [History Confirmed 11/04/17] Boric Acid 340 gm MC PRN PRN 11/04/17 [History Confirmed 11/04/17] Cetirizine HCl [All Day Allergy] 10 mg PO DAILY 11/04/17 [History Confirmed 11/04/17] Fluticasone/Vilanterol [Breo Ellipta 200-25 Mcg INH] 1 ea IH DAILY 11/04/17 [History Confirmed 11/04/17] Hydroxyzine HCl 12.5 mg PO Q8 PRN 11/04/17 [History Confirmed 11/04/17] Lidocaine [Lidoderm Patch] 2 patch TOPICAL DAILY 11/04/17 [History Confirmed 11/04/17] Metformin HCl 1,000 mg PO BID 11/04/17 [History Confirmed 11/04/17] Sodium Chloride [Saline Nasal [place]] 30 ml NS Q2H PRN PRN 11/04/17 [History Confirmed 11/04/17] PFSH Medical History Diabetes (Acute) Surgical History Previous section (Inactive) gallbladder removal (Inactive) Social History Smoking Status: Current every day smoker alcohol intake: never HPI Low back pain: Chief Complaint: lumbar pain Details: GELY LACKEY is a 47 year old RHD F who presents with 50% back pain since 2004 and 50% left greater than right buttock, posterior thigh, posterior calf pain since 2014. She states her pain is worse with prolonged sitting and standing and improved with changing positions. She denies bowel or bladder issues. She has used a cane since 2009 due to back pain. She denies difficulty with hand dexterity. She has had physical therapy, to include aqua therapy in 2014 without relief. She does some home exercises. She has been on a fentanyl patch 25mcg since and percocet three times a day for the past 8 months. She has 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 Cordova with [facility] pain management. She has had spinal injections with RFAs helping the most. She states a tens helps. She denies startup pain. She denies constitutional symptoms. She has DM and hypothyroidism. She is on disability. She does smoke 1/2 ppd. ROS Const Reports system reviewed and no additional complaints, except as docu Eyes Reports system reviewed and no additional complaints, except as docu ENT Reports system reviewed and no additional complaints, except as docu Card Reports system reviewed and no additional complaints, except as docu Resp Reports system reviewed and no additional complaints, except as docu GI Reports system reviewed and no additional complaints, except as [facility] Reports system reviewed and no additional complaints, except as [facility] Musc Reports back pain, Reports stiffness Skin/Breast Reports system reviewed and no additional complaints, except as [facility] Neuro Yes system reviewed and no additional complaints, except as [facility] Psych Reports system reviewed and no additional complaints, except as [facility] Endo Reports system reviewed and no additional complaints, except as [facility] Ortho Exam Spine Neuro: Yes Sahu's (negative bilaterally), Clonus (none bilaterally), Babinski (downgoing bilaterally) and Straight Leg Raise (negative) General: alert, oriented x3 Gait: normal gait (heel and toe walk intact, normal tandem gait) Motor: strength 5/5 throughout Sensory Exam: no sensory deficits noted (hyperesthesias of her entire low back ) DTR's: Rt Triceps: 2+, Lt Triceps: 2+, Rt Biceps: 2+, Lt Biceps: 2+, Rt Brachioradialis: 2+, Lt Brachioradialis: 2+, Rt Patellar: 2+, Lt Patellar: 2+, Rt Ankle: 2+, Lt Ankle: 2+ Plantar Reflexes: Downgoing: bilateral Coordination: tandem gait normal, Romberg test normal Details: 2+ bilateral dp and pt pulses SPINE TESTING CERVICAL THORACIC LUMBAR SLR: Negative Iliac Compression: Positive (bilateral positive VAHE) Musculoskeletal General: Yes normal posture (neutral sagittal balance) Cervical Spine: cervical ROM normal, other (negative lhermitte's) Thoracic/Lumbar Spine: lumbar spinal tenderness, thoraco-lumbar ROM limited (worse with lumbar extension), other (no skin dysraphism) Sacroiliac joints: bilateral (positive VAHE bilaterally) Strength 0=absent - 5=normal Deltoid R (C5): 5, Deltoid L (C5): 5, R Bicep (C5-6): 5, L Bicep (C5-6): 5, R Wrist Extensor (C6): 5, L Wrist Extensor (C6): 5, R Tricep (C7): 5, L Tricep (C7): 5, R Finger Flexors (C8): 5, L Finger Flexors (C8): 5, R First Dorsal Interossei (C8): 5, L First Dorsal Interossei (C8): 5, R Hip Flexor (L1-3): 5, L Hip Flexor (L1-3): 5, R Quadriceps (L2-4): 5, L Quadriceps (L2-4): 5, R Anterior Tibialis (L4-5): 5, L Anterior Tibialis (L4- 5): 5, R Hamstrings (L5-S1): 5, L Hamstrings (L5-S1): 5, GS (S1): 5, L GS (S1): 5, R Peroneals (S1): 5, L Peroneals (S1): 5 Assessment AND Plan 1. Chronic low back pain M54.40 Plan Imaging XR lumbar spine reveals diffuse spondylosis wth L4-5 kypohotic disc collapse MRI lumbar spine 01/25/2017 reveals diffuse spondylosis with L4-5 spondylolisthesis. Poor quality MRI with skipping of axial images so a complete MRI study is not available for review. No significant central stenosis from the images available I/R/P 1. back pain 2. bilateral leg pain 3. DM 4. nicotine use Ms. Lackey presents with back and bilateral leg pain. Her MRI is nearly 1 year old and of poor quality. Recommend an updated MRI lumbar spine. Counseled on nicotine cessation. Recommend updated physical therapy. Follow up after MRI or sooner if issues arise. Plan of care discussed. All questions answerd. She is in understanding. Plan Detail Other Orders Orders: Coding Level of Care Code Off vis,new,level 4 Diagnoses Chronic low back pain M54.40 Back pain laterality: bilateral Sciatica presence: with sciatica Sciatica laterality: sciatica laterality unspecified 11/25/17 [id number] <Electronically signed by Margaret Tobin MD> Date Margaret Tobin MD Cosigner Signature: Date (if applicable) CC: Aron Palumbo MD SPINE LUMBAR Observed: 11/23/2017 Status: F Source: [place] (ROUTINE) 3:44 PM [facility] REPOSIT[facility] Imaging Services [address] [place] [address] Spine Lumbar (Routine) MR#: [id number] Acct: [id number] Name: GELY LACKEY Rep #: [id number] : 1970 F 47 From: Tommy Petersen MD PCP: Aron Palumbo MD Status: REG CLI Study: Spine Lumbar (Routine) Date of Exam: 11/23/17 Exam# [id number] Ordering Dr: Margaret Tobin MD STUDY: MRI LUMBAR SPINE WITHOUT CONTRAST REASON FOR EXAM: Female, 47 years old. Back pain and bilateral leg pain TECHNIQUE: Standardized fat and water weighted pulse sequences were obtained in the sagittal and axial planes. COMPARISON: None FINDINGS: T12-L1: Normal endplates. Normal disc height, hydration and morphology. Normal bilateral facet joints. Normal central canal and bilateral lateral recesses. Normal bilateral intervertebral neural foramina. Normal lumbar lordosis. There is no substantial scoliosis. Normal conus medullaris that terminates at the L1 level. L1-2: Mild bulging annulus with bilateral facet and ligamentum flavum hypertrophy. Minimal central canal stenosis. L2-3: Disc desiccation. Bilateral facet and ligamentum flavum hypertrophy with mild to moderate central canal stenosis. L3-4: Disc desiccation and L4 Schmorl's node. Mild bulging annulus with superimposed left foraminal annular fissure and bilateral facet and ligamentum flavum hypertrophy. Mild to moderate central canal stenosis and mild right foraminal stenosis. L4-5: Disc space narrowing and desiccation with anterior osteophytes. Bulging annulus with bilateral facet and ligamentum flavum hypertrophy. Moderate central canal stenosis and moderate to severe bilateral lateral recess stenoses. Moderate to severe right and moderate left foraminal stenoses. L5-S1: Disc desiccation and discogenic endplate changes. Bulging annulus and left foraminal osteophyte with bilateral facet and ligamentum flavum hypertrophy. Moderate left lateral recess stenosis. Severe left and moderate right foraminal stenoses. Normal visualized sacral ala. Normal visualized paraspinous soft tissue structures. MRI/Spine Lumbar (Routine) IMPRESSION: Multilevel degenerative disc and facet disease as described. Severe left foraminal stenosis at L5-S1. Moderate to severe bilateral lateral recess stenoses at L4-5. Moderate to severe right foraminal stenosis at L4-5. Electronically Signed: Tommy Petersen MD at 3:30 EST Tel , Service support , CC: Margaret Tobin MD; Aron Palumbo MD Industrial Engineering Professor: Signed CBC W/DIFF, AUTOMATED Collected: 11/21/2017 Status: F Source: [place] 4:41 PM [facility] REPOSITORY Order Comment: Order Date: 11/07/17 Order Info: [id number] - CBCD Order Info: [id number] - SED TYPE CODE TESTS RESULT OUT OF RANGE REFERENCE UNITS LAB L100.1000 4.4-11.0 K/mm3 High WBC 15.7 LAB L100.1200 4.2-5.4 M/mm3 Normal RBC 4.62 LAB L100.1300 12.0-15.0 g/dl Normal HGB 13.7 LAB L100.1400 37-47 % Normal HCT 42.8 LAB L100.1500 81-99 fL Normal MCV 92.6 LAB L100.1600 27.0-32.0 pg Normal MCH 29.7 LAB L100.1700 32-36 g/gl Normal MCHC 32.0 LAB L100.1810 11.6-14.6 % High RDW CV 15.0 LAB L100.1820 35.1-43.9 fl High RDW SD 51.4 LAB L100.1900 150-450 K/mm3 Normal PLT 393 LAB L100.2000 6.2-12.0 fl Normal MPV 10.3 LAB L100.2100 47-70 % Normal NEUT% 63.1 LAB L100.2200 19-41 % Normal LY% 30.8 LAB L100.2300 0-10 % Normal MONO% 3.6 LAB L100.2400 0-5 % Normal EO% 1.9 LAB L100.2500 0-1 % Normal BASO% 0.3 LAB L100.2550 0.0-0.9 % Normal IM GRAN % 0.300 Result Comment: IG% - Immature Granulocytes (promyelocytes, myelocytes and metamyelocytes) > 1% indicates that a LEFT SHIFT is Present. LAB L100.2620 2.0-7.7 X10 3/uL High Absolute Neut 9.9 LAB L100.2720 0.83-4.51 X10 3/ul High Absolute Lymph 4.84 Performed By: #### L100.0100, L101.9900 #### [facility] [address] [place] [facility] [address] #### L3100.5475 #### [facility] (refer to report for specific site) refer to report for address and phone number ERYTHROCYTE SED RATE Collected: 11/21/2017 Status: F Source: [place] 4:41 PM [facility] Order Comment: Order Date: 11/07/17 Order Info: [id number] - CBCD Order Info: [id number] - SED TYPE CODE TESTS RESULT OUT OF RANGE REFERENCE UNITS LAB L102.0000 0-20 mm/hr High SED RATE 50 Performed By: #### L100.0100, L101.9900 #### [facility] [address] [place] [address] #### L3100.5475 #### [facility] (refer to report for specific site) refer to report for address and phone number ANTINUCLEAR ANTIBODIES Collected: 11/21/2017 Status: F Source: [place] DIRECT 4:41 PM [facility] REPOSIT[facility] Order Comment: Order Date: 11/07/17 Order Info: [id number] - MARVA TYPE CODE TESTS RESULT OUT OF RANGE REFERENCE UNITS LAB L3100.5475 Negative Normal Negative MARVA-DIRECT Result Comment: Performed at: [facility] [address] [place] [id number] Traffic Coordinator: Nate Craig PhD, Phone: [phone] Performed By: #### L100.0100, L101.9900 #### [facility] [address] [place] [address], [address] #### L3100.5475 #### [facility] (refer to report for specific site) refer to report for address and phone number CRP Collected: 11/21/2017 Status: F Source: [place] 4:41 PM [facility] TYPE CODE TESTS RESULT OUT OF RANGE REFERENCE UNITS LAB L501.6710 0.0-3.0 mg/L High 12.90 C-REACTIVE PROT Result Comment: C-Reactive Protein (CRP) provides useful information for the diagnosis, therapy and monitoring of inflammatory processes and associated diseases. For the evaluation of Relative Risk for Cardiovascular Disease, a High Sensitivity CRP (HSCRP) should be ordered. Performed By: #### L501.6710 #### [facility] [address] [place], [address] PROGRESS Observed: 11/20/2017 Status: COMPLETED Source: [place] 1:39 PM [facility] [place] REPOSITORY HNO ID: [id number] Author: Vandana (Pt) Arnulfo Service: (none) Author Type: Physical Therapist Type: Progress Notes Filed: 11/20/2017 7:19 PM Note Text: Episode Visit Count: 1 Therapist That Will Oversee The Plan Of Care: Vandana Arredondo Start of Care Date: 11/20/17 Plan of Care Certification Date: 11/20/17 Patient Identified by Name and Date of : Yes REHABILITATION AND SPORTS THERAPY PHYSICAL THERAPY EVALUATION PLAN OF CARE: Assessment: Gely Lackey presents with the diagnosis of back pain/SI jt pain. She presents with impairments of decreased lumbar spine AROM, core and BLE weakness, and abnormal gait. She may benefit from skilled therapy services to improve B LE and core strength, lumbar spine AROM, posture and gait. May also address balance issues if balance testing reveals pt is at risk of falls d/t balance defecits. Low Back Pain Subgroup Classification Low Back Pain Subgroup Classification: Core stabilization subgroup: recommended visits 10. Core Stabilization Subgroup Classification based on: pain with transitional movements Prognosis: Good Good due to: current objective clinical presentation;within-session changes at evaluation;good support system/ coping skills Goals for Episode of Care: created on 11/20/17 through 01/18/18 [place] in home exercise program. Patient will decrease pain rating by 2 points to meet minimal clinical important difference for numeric pain rating scale. Patient will increase active ROM of lumbar spine by 5 degrees to allow pt to improved performance of ADLs. Patient will increase strength of core and B LE musculature to 4 to 4+/5 to allow for return to prior functional status. Perform sitting, standing, bending, cleaning, and community ambulation with decreased report of symptoms/pain in 8 weeks. Demonstrate improvement on functional score: Patient will improve his/her AM-PAC T-scale score by 4 points to indicate a Minimal Clinical Important Difference . Improve postural awareness. Normal gait. G CODE REPORTING Based on clinical assessment and the score on the Oswestry Assessment Tool, the G code and corresponding severity modifiers are documented below. Evaluation: 11/20/2017 Current Status: Mobility: Walking and Moving Around: G8978 CL 60-79% impaired Goal Status: Mobility: Walking and Moving Around: G8979 CL 60-79% impaired Planned Interventions, Frequency, and Duration: Current Frequency: 2x/week Duration: 8 weeks Total Number of Visits Planned: 16 Patient to be see for Planned Treatment Interventions: Therapeutic exercise;Neuromuscular re-education;Patient/Family/Caregiver Education PLAN FOR NEXT VISIT: Review HEP to insure correct and safe performance. Progress strengthening and ROM exercises including HEP. Assess pelvic alignmane and at some point in next few visits balance testing. Patient demonstrates good understanding of plan of care and treatment. The above goals and plan of care were discussed and agreed upon by patient/family. SUBJECTIVE: Gely Lackey is a 47 year old female seen today for 2004 woke up in middle of the night and had pain. Had therapy a couple of years ago and had aquatic therapy. She continues to do aquatic exercises in her home pool (outdoor) from spring to fall as weather permits. States she has been diagnosed with spinal stenosis more recently and got a second opinion regarding surgical consult which triggered her current referral for therapy. Symptoms have been recently worsening. Severe cramping in legs at night only (less frequent now with medication), legs give out unexpectedly. Can't stand or sit for longer than 15-20 minutes at a time. Limited community walking to 15-20 min with shopping cart. Pt describes a fall right after Amanda when she hit her head on bathroom door and had to have stitches (reports mild concussion). 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 Intake Information: Prescription present Previous Treatment: Pain Meds;Injections;Nerve Blocks;Physical Therapy;Aquatic PT (TENS unit, Fentynol, Lyrica, Lydicaine patches, Percocet) Falls Interview: Two or more falls in the last year;Fall with injury in the last year Spine History Sleeping Position: (avoids supine, but turns a lot while sleeping) Sleep Affected by Pain: Pain awakens Pain Score: 9/10 Pain Location: Low Back/Lumbar Spine - Right;Low Back/Lumbar Spine - Left (and into B LE (posterior) to knees) Description: Sharp;Stabbing Frequency: Continuous Post Treatment Pain Score: No Change OBJECTIVE MEASURES WITH LEVEL OF FUNCTION: Posture / Alignment Posture: Increased lumbar lordosis Sensation - Lumbar Sensation: (B LE numbness and tingling intermittently and varies in B LE) Lumbar Spine AROM Lumbar Flexion: (fingertips to knees, increased pain) Lumbar Extension: Major limitation;Increased pain Lumbar R Side-Bend: (15 deg with pain) Lumbar L Side-Bend: (15 deg with pain) LE Strength R LE Strength: Pt unable to sustain a solid muscle contraction demonstrating shaking and muslce fasciculations throughout B LE during MMT. R Hip ABduction: 4/5 R Hip ADduction: 4/5 R Knee Extension: 4-/5 (with pain) R Knee Flexion: 4/5 R Ankle Dorsiflexion: 3+/5 R Ankle Plantar Flexion: 3+/5 L Hip ABduction: 4/5 L Hip ADduction: 4/5 L Knee Extension: 4-/5 L Knee Flexion: 4/5 L Ankle Dorsiflexion: 3+/5 L Ankle Plantar Flexion: 3+/5 Education: Education Learning Preferences: Demonstration;Explanation Barriers: None Learning/educational needs: Home exercise program;Plan of Care Education Provided: Yes, see treatment interventions for education provided Education Provided To: Patient Education Mode/Type: Demonstration;Explanation/Discussion;Literature/Printed Materials;Performance Response to Education/Teach Back: States/Identifies;Return Demonstration TREATMENT: Evaluation Therapeutic Exercise: 1: seated SKC stretches (very gentle to tolerance) x 3 each leg 2: seated lumbar flexion stretch 20 sec hold x 3 reps 3: seated pelvic tilts within limited, comfortable ROM x 5 reps 4: seated isometric abdominal 5 sec holds x 10 reps Skilled Intervention: Patient was educated in proper exercise technique and purpose for exercises. Skilled judgment was provided in selection of appropriate interventions. Provided written instruction for home exercise program to facilitate proper performance and compliance. Correct performance of therapeutic exercises was facilitated with verbal and visual cuing. Patient education as noted. Billing: [facility]: Evaluation - Low Complexity (53618) Therapeutic Exercise (15899): 1:1 time: 20 minutes (1 unit: 8-22 mins) Total time: 50 minutes Vandana Arredondo PT CNTHERAPY Observed: 11/20/2017 Status: COMPLETED Source: [place] 1:30 PM [facility] [place] REPOSITORY OT/PT/Speech Visit (PTWS) GELY LACKEY ([id number]) 1970 F Date Time Provider Department 11/20/17 1:30 PM VANDANA ARREDONDO (PT) PTWS Date Time Provider Department Center 11/20/2017 1:30 PM [id number] ARREDONDO (PT) PTWS [facility] [place] Reason for Visit: PT Eval [747] Primary Visit Diagnosis:Low back pain, unspecified back pain laterality, unspecified chronicity, with sciatica presence unspecified [M54.5] Other Visit Diagnosis:Pain in joint, multiple sites [M25.50] Allergies As of Date: 11/20/2017 Noted Allergy Reaction ALLOPURINOL 01/20/2015 2 - Rash ALLOPURINOL 08/10/2015 4 - Hives CODEINE 03/17/2008 4 - Hives Comments: itching,swelling CODEINE 08/10/2015 4 - Hives RELAFEN (NABUMETONE) 08/10/2015 4 - Hives SULFA (SULFONAMIDE ANTIBIOTICS) 03/17/2008 4 - Hives Comments: swelling,itching SULFUR-SOD SUL,THIOSUL-MFOLATE 08/10/2015 4 - Hives Date Reviewed: 10/20/2015 Reviewed by: Jose Singh - Fully Assessed Prescriptions as of 11/20/2017 Sig: HYDROCODONE 7.5 MG-ACETAMINOP* MONTELUKAST 10 MG TABLET LYRICA 100 MG CAPSULE SELENIUM 200 MCG TABLET SERTRALINE 100 MG TABLET SALINE NOSE 0.65 % SPRAY AERO* TIZANIDINE 4 MG TABLET TOPIRAMATE 50 MG TABLET TEGADERM FRAME STYLE 4 X 4 3* LIDOCAINE 5 % TOPICAL PATCH Apply 1 Patch as directed nely* POLYETHYLENE GLYCOL 3350 17 G* Take 17 g by mouth once daily* ASMANEX TWISTHALER INHALATION Inhale as instructed. TRAMADOL 50 MG TABLET SPIRIVA WITH HANDIHALER 18 MC* SELENOMETHIONINE 200 MCG TABL* FIBER LAXATIVE (PSYLLIUM HUSK* as needed. POTASSIUM CITRATE ER 15 MEQ (* PRILOSEC OTC 20 MG TABLET,DEL* NORTRIPTYLINE 25 MG CAPSULE DULERA 200 MCG-5 MCG/ACTUATIO* MAGNESIUM OXIDE 400 MG TABLET LOSARTAN 25 MG TABLET HYDROXYZINE HCL 25 MG TABLET FUROSEMIDE 20 MG TABLET FLUTICASONE 50 MCG/ACTUATION * FENTANYL 25 MCG/HR TRANSDERMA* COD LIVER OIL CAPSULE BACLOFEN 20 MG TABLET FEBUXOSTAT 80 MG TABLET Take by mouth once daily. VITAMIN B COMPLEX TABLET Take 1 tablet by mouth once d* LEVOTHYROXINE 88 MCG TABLET Take 88 mcg by mouth daily be* PREGABALIN 75 MG CAPSULE Take 75 mg by mouth three caroline* CETIRIZINE 10 MG TABLET Take 10 mg by mouth once celio* NAPROXEN 500 MG TABLET Take 500 mg by mouth twice da* Progress Notes: Vandana Arredondo, PT 11/20/2017 7:19 PM Signed Episode Visit Count: 1 Therapist That Will Oversee The Plan Of Care: Vandana Arredondo Start of Care Date: 11/20/17 Plan of Care Certification Date: 11/20/17 Patient Identified by Name and Date of : Yes REHABILITATION AND SPORTS THERAPY PHYSICAL THERAPY EVALUATION PLAN OF CARE: Assessment: Gely Lackey presents with the diagnosis of back pain/SI jt pain. She presents with impairments of decreased lumbar spine AROM, core and BLE weakness, and abnormal gait. She may benefit from skilled therapy services to improve B LE and core strength, lumbar spine AROM, posture and gait. May also address balance issues if balance testing reveals pt is at risk of falls d/t balance defecits. Low Back Pain Subgroup Classification Low Back Pain Subgroup Classification: Core stabilization subgroup: recommended visits 10. Core Stabilization Subgroup Classification based on: pain with transitional movements Prognosis: Good Good due to: current objective clinical presentation;within- session changes at evaluation;good support system/ coping skills Goals for Episode of Care: created on 11/20/17 through 01/18/18 [place] in home exercise program. Patient will decrease pain rating by 2 points to meet minimal clinical important difference for numeric pain rating scale. Patient will increase active ROM of lumbar spine by 5 degrees to allow pt to improved performance of ADLs. Patient will increase strength of core and B LE musculature to 4 to 4+/5 to allow for return to prior functional status. Perform sitting, standing, bending, cleaning, and community ambulation with decreased report of symptoms/pain in 8 weeks. Demonstrate improvement on functional score: Patient will improve his/her AM-PAC T-scale score by 4 points to indicate a Minimal Clinical Important Difference . Improve postural awareness. Normal gait. G CODE REPORTING Based on clinical assessment and the score on the Oswestry Assessment Tool, the G code and corresponding severity modifiers are documented below. Evaluation: 11/20/2017 Current Status: Mobility: Walking and Moving Around: G8978 CL 60-79% impaired Goal Status: Mobility: Walking and Moving Around: G8979 CL 60-79% impaired Planned Interventions, Frequency, and Duration: Current Frequency: 2x/week Duration: 8 weeks Total Number of Visits Planned: 16 Patient to be see for Planned Treatment Interventions: Therapeutic exercise;Neuromuscular re-education;Patient/Family/Caregiver Education PLAN FOR NEXT VISIT: Review HEP to insure correct and safe performance. Progress strengthening and ROM exercises including HEP. Assess pelvic alignmane and at some point in next few visits balance testing. Patient demonstrates good understanding of plan of care and treatment. The above goals and plan of care were discussed and agreed upon by patient/family. SUBJECTIVE: Gely Lackey is a 47 year old female seen today for 2004 woke up in middle of the night and had pain. Had therapy a couple of years ago and had aquatic therapy. She continues to do aquatic exercises in her home pool (outdoor) from spring to fall as weather permits. States she has been diagnosed with spinal stenosis more recently and got a second opinion regarding surgical consult which triggered her current referral for therapy. Symptoms have been recently worsening. Severe cramping in legs at night only (less frequent now with medication), legs give out unexpectedly. Can't stand or sit for longer than 15-20 minutes at a time. Limited community walking to 15-20 min with shopping cart. Pt describes a fall right after [employer] when she hit her head on bathroom door and had to have stitches (reports mild concussion). 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 Intake Information: Prescription present Previous Treatment: Pain Meds;Injections;Nerve Blocks;Physical Therapy;Aquatic PT (TENS unit, Fentynol, Lyrica, Lydicaine patches, Percocet) Falls Interview: Two or more falls in the last year;Fall with injury in the last year Spine History Sleeping Position: (avoids supine, but turns a lot while sleeping) Sleep Affected by Pain: Pain awakens Pain Score: 9/10 Pain Location: Low Back/Lumbar Spine - Right;Low Back/Lumbar Spine - Left (and into B LE (posterior) to knees) Description: Sharp;Stabbing Frequency: Continuous Post Treatment Pain Score: No Change OBJECTIVE MEASURES WITH LEVEL OF FUNCTION: Posture / Alignment Posture: Increased lumbar lordosis Sensation - Lumbar Sensation: (B LE numbness and tingling intermittently and varies in B LE) Lumbar Spine AROM Lumbar Flexion: (fingertips to knees, increased pain) Lumbar Extension: Major limitation;Increased pain Lumbar R Side-Bend: (15 deg with pain) Lumbar L Side-Bend: (15 deg with pain) LE Strength R LE Strength: Pt unable to sustain a solid muscle contraction demonstrating shaking and muslce fasciculations throughout B LE during MMT. R Hip ABduction: 4/5 R Hip ADduction: 4/5 R Knee Extension: 4-/5 (with pain) R Knee Flexion: 4/5 R Ankle Dorsiflexion: 3+/5 R Ankle Plantar Flexion: 3+/5 L Hip ABduction: 4/5 L Hip ADduction: 4/5 L Knee Extension: 4-/5 L Knee Flexion: 4/5 L Ankle Dorsiflexion: 3+/5 L Ankle Plantar Flexion: 3+/5 Education: Education Learning Preferences: Demonstration;Explanation Barriers: None Learning/educational needs: Home exercise program;Plan of Care Education Provided: Yes, see treatment interventions for education provided Education Provided To: Patient Education Mode/Type: Demonstration;Explanation/Discussion;Literature/Printed Materials;Performance Response to Education/Teach Back: States/Identifies;Return Demonstration TREATMENT: Evaluation Therapeutic Exercise: 1: seated SKC stretches (very gentle to tolerance) x 3 each leg 2: seated lumbar flexion stretch 20 sec hold x 3 reps 3: seated pelvic tilts within limited, comfortable ROM x 5 reps 4: seated isometric abdominal 5 sec holds x 10 reps Skilled Intervention: Patient was educated in proper exercise technique and purpose for exercises. Skilled judgment was provided in selection of appropriate interventions. Provided written instruction for home exercise program to facilitate proper performance and compliance. Correct performance of therapeutic exercises was facilitated with verbal and visual cuing. Patient education as noted. Billing: [facility]: Evaluation - Low Complexity (59297) Therapeutic Exercise (13554): 1:1 time: 20 minutes (1 unit: 8-22 mins) Total time: 50 minutes Vandana Arredondo PT Letter Text L/S SPINE MIN 4 Observed: 11/07/2017 Status: F Source: [place] VIEWS 2:14 PM [facility] REPOSITORY [facility] Imaging Services [address] [place] [address] 11848 L/S Spine Min 4 Views MR#: [id number] Acct: [id number] Name: GELY LACKEY Rep #: [id number] : 1970 F 47 From: Linda Guevara MD PCP: Aron Palumbo MD Status: REG CLI Study: L/S Spine Min 4 Views Date of Exam: 11/07/17 Exam# [id number] Ordering Dr: Margaret Tobin MD XR Spine Lumbar Min 4 Views INDICATION: CHRONIC PAIN SINCE 2004 COMPARISON: None TECHNIQUE: Frontal and lateral views of the lumbar spine, lateral flexion and extension views FINDINGS: There are 5 lumbar type nonrib-bearing vertebral bodies. There is normal lumbar lordosis and no evidence of significant scoliosis. Range of motion on flexion and extension is markedly limited. No evidence of listhesis. Disc spaces at L4-5 and L5-S1 are decreased with marginal osteophytes and facet arthritic changes. RAD/L/S Spine Min 4 Views IMPRESSION: Degenerative disc disease and facet arthritic changes at L4- 5 and L5-S1. Limited range of motion on flexion and extension views. at 2014 Reported and signed by: Linda Guevara MD Electronically Signed: Linda Guevara MD at 19:13 EST Tel , Service support , CC: Margaret Tobin MD; Aron Palumbo MD Industrial Engineering Professor: Signed ALLERGIES ALLERGIES DATE TYPE / CODE NAME / CODE REACTION SEVERITY SOURCE Drug Sulfa Rash Unknown [place] 9 Allergy/039839504( (Sulfonamide Community SNOMED CT) Antibiotics)/ Hospital 14024470(RXNORM Repository ) Drug codeine/X269839 Rash Unknown [place] 9 Allergy/933754114( 550(RXNORM) [facility] SNOMED CT) Hospital Repository Drug nabumetone/F006 Rash Unknown [place] 9 Allergy/655175180( 560319(RXNORM) [facility] SNOMED CT) Hospital Repository Miscellaneous albuterol Laryngospasms Unknown [place] 9 Allergy/305717303( [facility] SNOMED CT) Hospital Repository Drug pregabalin/F006 confusion/deliriu Unknown [place] 9 Allergy/161637796( 074961(RXNORM) m [facility] SNOMED CT) Hospital Repository DRUG ALLOPURINOL [facility] 5 INGREDI/885982039( [facility] SNOMED CT) [place] Repository DRUG CODEINE [facility] 5 INGREDI/403321475( [facility] SNOMED CT) [place] Repository DRUG NABUMETONE [facility] 5 INGREDI/768645577( Clinic Main SNOMED CT) [place] Repository DRUG/780865680(SNO SULFUR-SOD [facility] [address]) SUL,THIOSUL-MFO Clinic Main LATE [place] Repository Drug SULFA [facility] 8 Class/430291235(SN (SULFONAMIDE Clinic Main OMED CT) ANTIBIOTICS) [place] Repository ENCOUNTERS ENCOUNTERS ADMIT/DISCHARGE ACCOUNT ADMITTING ENCOUNTER LOCATION SOURCE NUMBER CLASS 10/24/2018/10/24/19 [id number] Ambulatory BMSBuilding:[place] 19 [place] Repository 10/18/2018 [id number] Ambulatory BMSBuilding:[place] MS.CF.[facility] Repository 10/18/2018/10/18/19 [id number] Ambulatory [address] ing:SDCRoom: Repository AC02 10/17/2018 [id number] Ambulatory BMSBuilding:[place] Santa MS.CF.[facility] Repository 10/03/2018 [id number] [facility] [place] [facility]H.[facility] Repository 10/01/2018 [id number] Ambulatory General acute hospital ing:LABSPEC Repository 09/25/2018 [id number] Ambulatory General acute hospital ing:LABSPEC Repository 08/29/2018/08/29/20 [id number] Ambulatory BMSBuilding:[place] 18 [place].[facility] Repository 08/28/2018 [id number] Inpatient [facility] Medical Encounter [facility] [place] g:H.PMJ Repository 08/16/2018 [id number] Inpatient [facility] Medical Encounter [facility] [place] g:H.PMJ Repository 08/08/2018 [id number] [facility] [place] [facility] Repository 06/11/2018 [id number] Ambulatory General acute hospital ing:LABSPEC Repository 06/05/2018 [id number] Inpatient [facility] Medical Encounter [facility] [place] g:H.PMJ Repository 06/04/2018 [id number] [facility] [place] g:H[facility]PM[facility] Repository 05/15/2018 [id number] Inpatient [facility] Medical Encounter [facility] g:H.PMJ Repository 05/08/2018 [id number] Ambulatory General acute hospital ing:MFPLAB Repository 05/02/2018 [id number] [facility] g:H.PMJ Repository 05/01/2018 [id number] Inpatient [facility] Medical Encounter [facility] g:H.PMJ Repository 04/02/2018 [id number] [facility] g:H.PMJ Repository 03/20/2018 [id number] Ambulatory General acute hospital ing:MTRAD Repository 03/05/2018/03/06/20 [id number] Miranda Hernandez Inpatient [address] ing:PCURoom: Repository XXH684Tsl: 1 03/05/2018 [id number] Miranda Hernandez Ambulatory BMSBuilding:B [place] Repository 03/05/2018 [id number] Miranda Hernandez Ambulatory BMSBuilding:B [place] Repository 01/29/2018/02/01/20 [id number] Aron Sánchez Inpatient [address] ing:MM0Rule: Repository CS748Idk: 1 01/29/2018 [id number] Aron Sánchez Ambulatory BMSBuilding:B [place] Repository 01/29/2018/02/01/20 [id number] Ambulatory BMSBuilding:[place] [address] [place] [address] Repository 01/29/2018 [id number] Aron Sánchez Ambulatory BMSBuilding:B [place] Repository 01/19/2018 [id number] Ambulatory General acute hospital ing:NM Repository 12/13/2017 [id number] Ambulatory General acute hospital ing:CT Repository 12/12/2017/12/12/19 [id number] Ambulatory BMSBuilding:B [place] 18 [facility] Repository 12/04/2017/12/07/19 [id number] Ambulatory [address] Repository 12/01/2017/12/05/19 [id number] Ambulatory [address] Repository 11/27/2017/11/28/19 [id number] Ambulatory [address] Repository 11/23/2017 [id number] Ambulatory General acute hospital ing:MRI Repository 11/21/2017 [id number] Ambulatory General acute hospital ing:MFPLAB Repository 11/20/2017/11/22/19 [id number] Ambulatory [address] Repository 11/07/2017 [id number] Ambulatory General acute hospital ing:HPRAD Repository 11/07/2017/11/07/19 [id number] Ambulatory BMSBuilding:B [place] 18 MS.[facility] Repository PAYERS PAYERS ENCOUNTER GUARANTOR PAYER SUBSCRIBER SOURCE 10/24/2018 GELY Cabrera Primary GELY L [place] [id number] Insurance:MEDICARE TOMBLINDOB: [facility] [id number] Number: Repository [address]Fgf: 330 [id number] [phone] () Date:2018-10-19 10/24/2018 Secondary GELY L [place] Insurance:MEDICAIDPol TOMBLINDOB: [facility] Number: [id number] Hospital [id number] Repository Date:2018-10-19 10/24/2018 Tertiary NOT GIVENUNK [place] Insurance:SELF PAY [facility] Number: Effective Repository Date:2018-10-24 10/18/2018 GELY Cabrera Primary GELY L [place] [id number] Insurance:MEDICARE TOMBLINDOB: [facility] [id number] Number: Repository 10607Cgm: 330 [id number] [phone] (HP) Date:2018-09-11 10/18/2018 Secondary GELY L [place] Insurance:MEDICAIDPol TOMBLINDOB: Community icy Number: [id number] Hospital [id number] Repository Date:2018-09-11 10/18/2018 Tertiary NOT GIVENUNK [place] Insurance:SELF PAY [facility] Number: Effective Repository Date:2018-10-18 10/18/2018 GELY Cabrera Primary GELY L [place] [id number] Insurance:MEDICARE TOMBLINDOB: [facility] [place] PART A [facility] [id number] Number: Repository 96[address]Mbz: ([phone] [id number] [phone] () Date:2018-09-11 10/18/2018 Secondary GELY L [place] Insurance:MEDICAIDPol TOMBLINDOB: [facility] icy Number: [id number] Hospital [id number] Repository Date:2018-09-11 10/18/2018 Tertiary NOT GIVENUNK [place] Insurance:SELF PAY [facility] Number: Effective Repository Date:2018-09-11 10/17/2018 GELY Cabrera Primary GELY L [place] [id number] Insurance:MEDICARE TOMBLINDOB: [facility] [place] PART A [facility] [id number], [place] Number: Repository 9[address]Awu: [phone]) [id number] [phone] () Date:2018-09-11 10/17/2018 Secondary GELY L [place] Insurance:MEDICAIDPol TOMBLINDOB: [facility] icy Number: [id number] Hospital [id number] Repository Date:2018-09-11 10/17/2018 Tertiary NOT GIVENUNK [place] Insurance:SELF PAY [facility] Number: Effective Repository Date:2018-10-17 10/03/2018 GELY Primary GELY Piña Medical [id number] [facility] Number: Repository [place], [place] [id number] [address]Mkr: (330) Date:[address] (HP) 763227VPJW CODE VG340MYSRZYZSEVANSVIL[place], [place] [address]OA: 10/03/2018 Secondary GELY Piña Medical Insurance:MEDICAID [facility] Number: Repository [id number] Date:[address] [address]FW: 10/01/2018 GELY Cabrera Primary GELY Cabrera [place] [id number] Insurance:MEDICARE TOMBLINDOB: [facility] [id number], [place] Number: Repository [address]Pnh: 330 [id number] [phone] () Date:2018-10-01 10/01/2018 Secondary GELY Cabrera [place] Insurance:MEDICAIDPol [facility] Number: [id number] Hospital [id number] Repository Date:2018-10-01 10/01/2018 Tertiary NOT GIVENUNK [place] Insurance:SELF PAY [facility] Number: Effective Repository Date:2018-10-01 09/25/2018 GELY Cabrera Primary GELY Cabrera [place] [id number] Insurance:MEDICARE TOMBLINDOB: [facility] A [facility] [id number], [place] Number: Repository 55[address]Iod: 330 [id number] [phone] () Date:2018-09-25 09/25/2018 Secondary GELY L [place] Insurance:MEDICAIDPol TOMBLINDOB: [facility] Number: [id number] Hospital [id number] Repository Date:2018-09-25 09/25/2018 Tertiary NOT GIVENUNK [place] Insurance:SELF PAY [facility] Number: Effective Repository Date:2018-09-25 08/29/2018 GELY L Primary GELY L [place] [id number] HIGH Insurance:MEDICARE TOMBLINDOB: [place] PART A [facility] [id number] Hospital 988[address]Cja: 330) Number: Repository [phone] () [id number] Date:2018-05-17 08/29/2018 Secondary GELY L [place] [facility] TOMBLINDOB: Community icy Number: [id number] Hospital [id number] Repository Date:2018-05-17 08/29/2018 Tertiary TRACE HOSKINSUNK [place] Insurance:SELF PAY [facility] Number: Effective Repository Date:2018-08-28 08/28/2018 GELY Primary GELY Piña [facility] [id number] HIGH Insurance:MEDICAREPol TOMBLINUNK [place] icy Number: Repository 39[address]Jpf: 330 [id number] [phone] (HP) Date:[address] CODE OO101DFLLCQAF, [place] [address]CS: 08/28/2018 Secondary GELY Piña Medical Insurance:MEDICAID OF TOMBLINUNK [facility] [place] OHIOPolicy Number: Repository [id number] Date:[address] [address]DO: 08/16/2018 GELY Primary GELY [facility] [id number] HIGH Insurance:MEDICAREPol TOMBLINUNK [place] icy Number: Repository 47[address]Cyw: 330 [id number] [phone] (HP) Date:[address]WMKU CODE FX791HYUMYYZS, [place] [address]PD: 08/16/2018 [facility] Insurance:MEDICAID OF TOMBLINUNK [place] OHIOPolicy Number: Repository [id number] Date:[address], [place] [address]FT: 08/08/2018 [facility] GLEY [facility] [id number] HIGH Insurance:MEDICAREPol TOMBLINUNK [place] icy Number: Repository [id number]: 330 [id number] [phone] (HP) Date:[address] CODE JL175ZDJWCDSN, [place] [address]RX: 08/08/2018 Secondary GELY Piña Medical Insurance:MEDICAID OF TOMBLINUNK [place] OHIOPolicy Number: Repository [id number] Date:[address] [address]LX: 06/11/2018 GELY Cabrera Primary GELY [place] [id number] HIGH Insurance:MEDICARE TOMBLINDOB: [place] PART A BPolicy [id number] Hospital 848[address]Yje: (330) Number: Repository [phone] (HP) [id number] Date:2018-06-11 06/11/2018 Secondary GELY L [place] Insurance:[facility]OB: [facility] Number: [id number] Hospital [id number] Repository Date:2018-06-11 06/11/2018 Tertiary NOT GIVENUNK [place] Insurance:SELF PAY [facility] Number: Effective Repository Date:2018-06-11 06/05/2018 GELY Primary GELY Piña Medical [id number] HIGH Insurance:MEDICAREPol TOMBLINUNK [place] icy Number: Repository [id number]: 330 [id number] [phone] (HP) Date:[address]OIEP CODE FW284TYBLOMRF, [place] [address]AN: 06/05/2018 Secondary GELY Piña Medical Insurance:MEDICAID [facility] Number: Repository [id number] Date:[address] [address]FD: 06/04/2018 GELY Primary GELY Piña [facility] [id number] HIGH Insurance:MEDICAREPol TOMBLINUNK [place] icy Number: Repository 49[address]Tyc: 330 [id number] [phone] (HP) Date:[address]IGNU CODE ZO027JUBRXMZGEVANSVILLE, [place] [address]XI: 06/04/2018 Secondary GELY Piña Medical Insurance:MEDICAID [facility] Number: Repository [id number] Date:[address], [place] [address]YJ: 05/15/2018 GELY Primary GELY Piña [facility] [id number] HIGH Insurance:MEDICAREPol TOMBLINUNK [place] icy Number: Repository [address]Ldx: 330 [id number] [phone] (HP) Date:[address] CODE LE251CUPSNQKL, [place] [address]IU: 05/15/2018 Secondary GELY Piña Medical Insurance:MEDICAID OF TOMBLINUNK [place] OHIOPolicy Number: Repository [id number] Date:[address], [place] [address]RJ: 05/08/2018 GELY L Primary GELY L [place] [id number] HIGH Insurance:MEDICARE TOMBLINDOB: [place] PART A BPolic [id number] Hospital 430[address]Lhs: (330) Number: Repository [phone] () [id number] Date:2018-05-08 05/08/2018 Secondary GELY L [place] Insurance:MEDICAIDPol TOMBLINDOB: [facility] Number: [id number] Hospital [id number] Repository Date:2018-05-08 05/08/2018 Tertiary NOT GIVENUNK [place] Insurance:SELF PAY [facility] Number: Effective Repository Date:2018-05-08 05/02/2018 GELY Primary GELY Piña Medical [id number] HIGH Insurance:MEDICAREPol TOMBLINUNK [place] icy Number: Repository 54[address]Xgk: 330 [id number] [phone] (HP) Date:[address]CZDI CODE MS822OABHMUUP, [place] [address]VX: 05/02/2018 Secondary GELY Piña Medical Insurance:MEDICAID [facility] Number: Repository [id number] Date:[address], [place] [address]TR: 05/01/2018 GELY Primary GELY Piña Medical [id number] HIGH Insurance:MEDICAREPol TOMBLINUNK [place] icy Number: Repository [id number]: 330 [id number] [phone] (HP) Date:[address] CODE OW496MHMQRVAV, [place] [address]EA: 05/01/2018 Secondary GELY Piña Medical Insurance:MEDICAID OF TOMBLINUNK [place] OHIOPolicy Number: Repository [id number] Date:[address], [place] [address]KG: 04/02/2018 GELY Piña [facility] [id number] HIGH Insurance:MEDICAREPol TOMBLINUNK [place] icy Number: Repository 150[address]Chg: 330 [id number] [phone] (HP) Date:[address] CODE NQ587UIXVRZFG, [place] [address]JG: 04/02/2018 Secondary GELY Piña Medical Insurance:MEDICAID [facility] Number: Repository [id number] Date:[address] [place] [address]XJ: 03/20/2018 GELY Cabrera Primary GELY L [place] [id number] HIGH Insurance:MEDICARE TOMBLINDOB: [place] PART A olic [id number] Hospital 287[address]Zez: (330) Number: Repository [phone] (HP) [id number] Date:2018-03-20 03/20/2018 Secondary GELY L [place] Insurance:MEDICAIDPol TOMBLINDOB: [facility] icy Number: [id number] Hospital [id number] Repository Date:2018-03-20 03/20/2018 Tertiary NOT GIVENUNK [place] Insurance:SELF PAY [facility] Number: Effective Repository Date:2018-03-20 03/05/2018 GELY Cabrera Primary GELY [place] [id number] HIGH Insurance:MEDICARE TOMBLINDOB: [place] PART A [facility] [id number] Hospital 63[address]Rzv: (330) Number: Repository [phone] () [id number] Date:2018-03-05 03/05/2018 Secondary GELY L [place] Insurance:MEDICAIDPol TOMBLINDOB: [facility] ic Number: [id number] Hospital [id number] Repository Date:2018-03-05 03/05/2018 Tertiary NOT GIVENUNK [place] Insurance:SELF PAY [facility] Number: Effective Repository Date:2018-03-05 03/05/2018 GELY Cabrera Primary GELY [place] [id number] HIGH Insurance:MEDICARE TOMBLINDOB: [place] PART [place] [facility] [id number] Hospital 81007Igt: (330) Number: Repository [phone] () [id number] Date:2018-03-05 03/05/2018 Secondary GELY Cabrera [place] Insurance:MEDICAIDPol TOMBLINDOB: [facility] icy Number: [id number] Hospital [id number] Repository Date:2018-03-05 03/05/2018 Tertiary NOT GIVENUNK [place] Insurance:SELF PAY [facility] Number: Effective Repository Date:2018-03-05 03/05/2018 GELY Cabrera Primary GELY [place] [id number] HIGH Insurance:MEDICARE TOMBLINDOB: [place] PART [place] [facility] [id number] Hospital 673[address]Wyc: (330) Number: Repository [phone] () [id number] Date:2018-03-05 03/05/2018 Secondary GELY L [place] Insurance:MEDICAIDPol TOMBLINDOB: [facility] icy Number: [id number] Hospital [id number] Repository Date:2018-03-05 03/05/2018 Tertiary NOT GIVENUNK [place] Insurance:SELF PAY [facility] Number: Effective Repository Date:2018-03-05 01/29/2018 GELY Cabrera Primary GELY Cabrera [place] [id number] HIGH Insurance:MEDICARE TOMBLINDOB: [place] PART A olic [id number] Hospital 44[address]Rne: (330) Number: Repository [phone] () [id number] Date:2018-01-29 01/29/2018 Secondary GELY L [place] Insurance:MEDICAIDPol TOMBLINDOB: [facility] icy Number: [id number] Hospital [id number] Repository Date:2018-01-29 01/29/2018 Tertiary NOT GIVENUNK [place] Insurance:SELF PAY [facility] Number: Effective Repository Date:2018-01-29 01/29/2018 GELY Cabrera Primary GELY L [place] [id number] HIGH Insurance:MEDICARE TOMBLINDOB: [place] PART A [facility] [id number] [address]Kur: (330) Number: Repository [phone] () [id number] Date:2018-01-29 01/29/2018 Secondary GELY L [place] Insurance:MEDICAIDPol TOMBLINDOB: [facility] icy Number: [id number] [facility] [id number] Repository Date:2018-01-29 01/29/2018 Tertiary NOT GIVENUNK [place] Insurance:SELF PAY [facility] Number: Effective Repository Date:2018-01-29 01/29/2018 GELY L Primary GELY L [place] [id number] HIGH Insurance:MEDICARE TOMBLINDOB: [place] PART A [facility] [id number] [address]Nzi: (330) Number: Repository [phone] () [id number] Date:2018-01-29 01/29/2018 Secondary GELY L [place] Insurance:MEDICAIDPol TOMBLINDOB: [facility] icy Number: [id number] [facility] [id number] Repository Date:2018-01-29 01/29/2018 Tertiary NOT GIVENUNK [place] Insurance:SELF PAY [facility] Number: Effective Repository Date:2018-01-29 01/29/2018 GELY Cabrera Primary GELY Cabrera [place] [id number] HIGH Insurance:MEDICARE TOMBLINDOB: [place] PART A [facility] [id number] [facility] [address]Wfl: (330) Number: Repository [phone] () [id number] Date:2018-01-29 01/29/2018 Secondary GELY L [place] Insurance:MEDICAIDPol TOMBLINDOB: Community icy Number: [id number] [facility] [id number] Repository Date:2018-01-29 01/29/2018 Tertiary NOT GIVENUNK [place] Insurance:SELF PAY [facility] Number: Effective Repository Date:2018-01-29 01/19/2018 GELY Cabrera Primary GELY [place] [id number] HIGH Insurance:MEDICARE TOMBLINDOB: [place] PART A [facility] [id number] [facility] [address]Pqm: (330) Number: Repository [phone] () [id number] Date:2018-01-16 01/19/2018 Secondary GELY Cabrera [place] Insurance:MEDICAIDPol TOMBLINDOB: Community icy Number: [id number] [facility] [id number] Repository Date:2018-01-16 01/19/2018 Tertiary NOT GIVENUNK [place] Insurance:SELF PAY [facility] Number: Effective Repository Date:2018-01-16 12/13/2017 GELY Cabrera Primary GELY Cabrera [place] [id number] HIGH Insurance:MEDICARE TOMBLINDOB: [place] PART A [facility] [id number] Hospital [address]Ghz: (330) Number: Repository [phone] () [id number] Date:2017-12-06 12/13/2017 Secondary GELY L [place] Insurance:MEDICAIDPol TOMBLINDOB: Community icy Number: [id number] [id number] Repository Date:2017-12-06 12/13/2017 Tertiary NOT GIVENUNK [place] Insurance:SELF PAY [facility] Number: Effective Repository Date:2017-12-06 12/12/2017 GELY Cabrera Primary GELY L [place] [id number] HIGH Insurance:MEDICARE TOMBLINDOB: [place] PART A [facility] [id number] Hospital [address]Mau: (330) Number: Repository [phone] () [id number] Date:2017-12-07 12/12/2017 Secondary GELY L [place] Insurance:MEDICAIDPol TOMBLINDOB: [facility] icy Number: [id number] [facility] [id number] Repository Date:2017-12-07 12/12/2017 Tertiary NOT GIVENUNK [place] Insurance:SELF PAY [facility] Number: Effective Repository Date:2017-12-07 11/23/2017 GELY L Primary GELY L [place] [id number] HIGH Insurance:MEDICARE TOMBLINDOB: [place] PART A [facility] [id number] [facility] [address]Zaq: (330) Number: Repository [phone] () [id number] Date:2017-11-21 11/23/2017 Secondary GELY L [place] Insurance:MEDICAIDPol TOMBLINDOB: [facility] ic Number: [id number] [id number] Repository Date:2017-11-21 11/23/2017 Tertiary NOT GIVENUNK [place] Insurance:SELF PAY [facility] Number: Effective Repository Date:2017-11-21 11/21/2017 GELY L Primary GELY L [place] [id number] HIGH Insurance:MEDICARE TOMBLINDOB: [place] PART A [facility] [id number] [address]Myt: (330) Number: Repository [phone] () [id number] Date:2017-11-21 11/21/2017 Secondary GELY L [place] Insurance:MEDICAIDPol TOMBLINDOB: [facility] icy Number: [id number] [facility] [id number] Repository Date:2017-11-21 11/21/2017 Tertiary NOT GIVENUNK [place] Insurance:SELF PAY [facility] Number: Effective Repository Date:2017-11-21 11/07/2017 GELY L Primary [place] [id number] HIGH Insurance:MEDICARE TOMBLINDOB: [place] PART A [facility] [id number] [facility] [address]Jzz: (330) Number: Repository [phone] () [id number] Date:2017-11-07 11/07/2017 Secondary GELY L [place] Insurance:MEDICAIDPol TOMBLINDOB: [facility] icy Number: [id number] Hospital [id number] Repository Date:2017-11-07 11/07/2017 Tertiary NOT GIVENUNK [place] Insurance:SELF PAY [facility] Number: Effective Repository Date:2017-11-07 11/07/2017 GELY Cabrera Primary GELY [place] [id number] HIGH Insurance:MEDICARE TOMBLINDOB: [place] PART A [facility] [id number] [facility] [address]Xwr: (330) Number: Repository [phone] () [id number] Date:2017-09-16 11/07/2017 Secondary GELY Cabrera [place] Insurance:MEDICAIDPol TOMBLINDOB: Community icy Number: [id number] [facility] [id number] Repository Date:2017-09-16 11/07/2017 Tertiary NOT GIVENUNK [place] Insurance:SELF PAY [facility] Number: Effective Repository Date:2017-09-16
== END ==
PROVIDERS: Family Provider Family Medicine; PCP Family Medicine; Referring Provider Family Medicine; Visit Provider Family Medicine
DX: R39.198 Other difficulties with micturition (principal)
CPT/HCPCS: 87086; 87088

== ENCOUNTER → 2018-10-01 19:30 | Outpatient (CLI) | payer MEDICARE, MEDICAID, SELFPAY ==
[2018-08-29 09:02] VITALS: BMI 37.3
[2018-10-01 19:40] LABS: Bacteria 0 SEEN /hpf (None Seen)
[2018-10-01 20:40] LABS: Glucose, Dipstick Normal (Normal); Ketone-Dipstick 5 mg/dl (Negative); Leukocyte Esterase-Dipstick 25 /ul (Negative); Nitrite-Dipstick Positive (Negative); Occult Blood-Urine 25 /ul (Negative); Protein-Dipstick 30 mg/dl (Negative); Specific Gravity, Urine 1.015 (1.002-1.030); Urine Clarity Clear (Clear); Urine Urobilinogen 12 mg/dl (Normal)
[2018-10-01 20:41] LABS: Color, Urine SEE COMMENT BELOW (Yellow); Urine Bilirubin Dipstick 6 mg/dL (Negative)
[2018-10-01 20:42] LABS: Mucous, Urine 1+ /hpf (<or=2+); Red Blood Cells-Urine 0-5 SEEN /hpf (0-5); Squamous Epithelial Cells - UA 0-5 SEEN /hpf (5-10); White Blood Cells 0-5 SEEN /hpf (0-5)
[2018-10-01 20:43] LABS: Hyaline Cast 5-10 SEEN /lpf (0-5)
--- OUTSIDE RECORDS SUMMARY | 2019-01-03 10:09 | XMS RPT_ITS ---
:1970 Author Organization OHIP Support Name Relationship Address Phone D Unavailable Unavailable Unavailable MARTÍNEZ, DIAMOND Unavailable [address] + [place] [address] D Unavailable Unavailable Unavailable MARTÍNEZ, DIAMOND Unavailable [address] + [place] [address] D Unavailable Unavailable Unavailable MARTÍNEZ, DIAMOND Unavailable [address] + [place] [address] D Unavailable Unavailable Unavailable MARTÍNEZ, DIAMOND Unavailable [address] + [place] [address] D Unavailable Unavailable Unavailable MARTÍNEZ, DIAMOND Unavailable [address] + [place] [address] D Unavailable Unavailable Unavailable MARTÍNEZ, DIAMOND Unavailable [address] + [place] [address] D Unavailable Unavailable Unavailable MARTÍNEZ, DIAMOND Unavailable [address] + [place] [address] D Unavailable Unavailable Unavailable MARTÍNEZ, DIAMOND Unavailable [address] + [place] [address] D Unavailable Unavailable Unavailable MARTÍNEZ, DIAMOND Unavailable [address] + [place] [address] D Unavailable Unavailable Unavailable MARTÍNEZ, DIAMOND Unavailable [address] + [place] [address] D Unavailable Unavailable Unavailable MARTÍNEZ, DIAMOND Unavailable [address] + [place] [address] D Unavailable Unavailable Unavailable MARTÍNEZ, DIAMOND Unavailable [address] + [place] [address] D Unavailable Unavailable Unavailable MARTÍNEZ, DIAMOND Unavailable [address] + [place] [address] D Unavailable Unavailable Unavailable MARTÍNEZ, DIAMOND Unavailable [address] + [place] [address] D Unavailable Unavailable Unavailable MARTÍNEZMADI HUERTAH Unavailable [address] + [place] [address] D Unavailable Unavailable Unavailable MARTÍNEZMADI HUERTAH Unavailable [address] + [place] [address] D Unavailable Unavailable Unavailable MARTÍNEZMADI HUERTAH Unavailable [address] + [place] [address] D Unavailable Unavailable Unavailable MARTÍNEZMADI HUERTAH Unavailable [address] + [place] [address] D Unavailable Unavailable Unavailable MARTÍNEZDAIMOND HUERTA Unavailable [address] + [place] [address] D Unavailable Unavailable Unavailable DIAMOND MARTÍNEZ Unavailable [address] + [place] [address] D Unavailable Unavailable Unavailable MARTÍNEZDIAMOND HUERTA Unavailable [address] + [place] [address] D Unavailable Unavailable Unavailable DIAMOND MARTÍNEZ Unavailable [address] + [place] [address] D Unavailable Unavailable Unavailable MARTÍNEZDIAMOND HUERTA Unavailable [address] + [place] [address] Care Team Providers Name Role Phone Margaret Tobin Attending Unavailable Margaret Tobin Referring Unavailable Palumbo, Aron Primary Care Unavailable Palumbo, Aron Attending Unavailable Palumbo, Aron Primary Care Unavailable Margaret Tobin Attending Unavailable Palumbo, Aron Referring Unavailable Palumbo, Aron Primary Care Unavailable Palumbo, Aron Attending Unavailable Palumbo, Aron Referring Unavailable Palumbo, Aron Primary Care Unavailable Nate Coyne Attending Unavailable Jabour, Vincent Referring Unavailable Palumbo, Aron Primary Care Unavailable Palumbo, Aron Primary Care Unavailable Jopperi, Aron Admitting Unavailable Jopperi, Aron Attending Unavailable Horacio Aguilera Consulting Unavailable Jopperi, Aron Admitting Unavailable Palumbo, Aron Primary Care Unavailable Jopperi, Aron Consulting Unavailable Jopperi, Aron Attending Unavailable Jopperi, Aron Admitting Unavailable Palumbo, Aron Primary Care Unavailable Jopperi, Aron Consulting Unavailable Jopperi, Aron Attending Unavailable Palumbo, Aron Attending Unavailable Palumbo, Aron Referring Unavailable Palumbo, Aron Primary Care Unavailable Parth Watkins Attending Unavailable Parth Watkins Referring Unavailable Palumbo, Aron Primary Care Unavailable Palumbo, Aron Attending Unavailable Palumbo, Aron Primary Care Unavailable Roland, Parth Attending Unavailable Slabgareth, Parth Referring Unavailable Palumbo, Aron Primary Care Unavailable Slabgareth, Parth Consulting Unavailable Slabgareth, Parth Attending Unavailable Slaby, Parth Referring Unavailable Palumbo, Aron Primary Care Unavailable Slabgareth, Parth Consulting Unavailable Slaby, Parth Attending Unavailable Palumbo, Aron Referring Unavailable Yoav Montes Attending Unavailable Jopperi, Aron Referring Unavailable Palumbo, Aron Primary Care Unavailable White, Miarnda Admitting Unavailable Isiah, Zoey S. Consulting Unavailable Bassem Hathaway Attending Unavailable White, Miranda Admitting Unavailable White, Miranda Attending Unavailable Palumbo, Aron Primary Care Unavailable White, Miranda Consulting Unavailable White, Miranda Admitting Unavailable Palumbo, Aron Primary Care Unavailable Isiah, Zoey S. Consulting Unavailable Bassem Hathaway Attending Unavailable Bassem Hathaway Consulting Unavailable Palumbo, Aron Attending Unavailable Palumbo, Aron Referring Unavailable Palumbo, Aron Primary Care Unavailable Palumbo, Aron Attending Unavailable Palumbo, Aron Primary Care Unavailable Palumbo, Aron Attending Unavailable Palumbo, Aron Primary Care Unavailable Roland, Parth Attending Unavailable Palumbo, Aron Referring Unavailable Margaret Tobin Attending Unavailable Palumbo, Aron Referring Unavailable Palumbo, Aron Primary Care Unavailable NUPURON, VANDANA (PT) Attending Unavailable TOBIN, MARGARET M Referring Unavailable LEMON, VANDANA (PT) Attending Unavailable TOBIN, MARGARET M Referring Unavailable LEMON, VANDANA (PT) Attending Unavailable TOBIN, MARGARET M Referring Unavailable LEMON, VANDANA (PT) Attending Unavailable TOBIN, MARGARET M Referring Unavailable Sheng, Ash P Attending Unavailable Palumbo, Aron A Primary Care Unavailable Sheng, Aly P Attending Unavailable Sheng, Aly P Attending Unavailable Sheng, Aly P Attending Unavailable Sheng, Ash P Primary Care Unavailable Sheng, Aly P Attending Unavailable Palumbo, Aron A Primary Care Unavailable Sheng, Ash P Attending Unavailable Sheng, Ash P Primary Care Unavailable Sheng, Ash P Attending Unavailable Palumbo, Aron A Primary Care Unavailable Sheng, Aly P Attending Unavailable Sheng, Ash P Attending Unavailable Sheng, Ash P Attending Unavailable Palumbo, Aron A Primary Care Unavailable PROBLEMS PROBLEMS DATE TYPE CONDITION / CODE ATTENDING STATUS SOURCE 10/19/2018 Unknown G89.18 - Other acute KseniagarethParth Active [place] postprocedural pain [facility] / G89.18(ICD-10) Hospital Repository 10/01/2018 Unknown N30.90 - Cystitis, Aron Palumbo Active [place] unspecified without Community hematuria / Hospital N30.90(ICD-10) Repository 09/25/2018 Unknown R39.198 - Other Aron Palumbo Active [place] difficulties with Community micturition / Hospital R39.198(ICD-10) Repository 06/11/2018 Unknown L02.211 - Cutaneous Aron Palumbo Active [place] abscess of abdominal Community wall / Hospital L02.211(ICD-10) Repository 05/08/2018 Unknown E11.43 - Type 2 Aron Palumbo Active [place] diabetes mellitus [facility] with diabetic Hospital autonomic Repository (poly)neuropathy / E11.43(ICD-10) 05/08/2018 Unknown E03.9 - Aron Palumbo Active [place] Hypothyroidism, Community unspecified / Hospital E03.9(ICD-10) Repository 04/02/2018 Admitting Unknown / Sheng Active [facility] Medical diagnosis UNK(Unknown) [facility] [place] Repository 12/13/2017 Unknown R10.13 - Epigastric Aron Palumbo Active [place] pain / Community R10.13(ICD-10) Hospital Repository 12/04/2017 Active Unknown / VANDANA ARREDONDO Active [facility] UNK(Unknown) (PT) [facility] [place] Repository 11/07/2017 Unknown M54.5 - Low back Margaret Tobin Active [place] pain / M54.5(ICD-10) [facility] Hospital Repository PROCEDURES PROCEDURES No Procedure Records FoundRESULTS RESULTS PLASTIC SURGERY Observed: 10/26/2018 Status: F Source: [place] VISIT REPORT 4:58 PM REPOSITORY [facility]astic [facility]ive Surgery [address] [facility] [address] [place] [address] OFFICE VISIT Date of Service: 10/24/18 MR#: [id number] Acct: [id number] Name: GELY LACKEY Rep #: [id number] : 1970 Provider: Parth Watkins MD Age/Sex: 48/F [place] [facility] Status: Signed Intake Vital Signs10/24/18 Body Mass Index (BMI) 37.0 10/24/18 Blood Pressure 105/73 10/24/18 Blood Pressure Location Rt brachial 10/24/18 Blood Pressure Position Sitting 10/24/18 Respiratory Rate 18 Intake Visit Reasons: postop surgery 10/18/18 Benefit Specialist Required: No Accompanied by: None Is patient [...] [History Confirmed 10/18/18] Sodium Chloride [Saline Nasal [place]] 1 spray NS Q2H PRN 03/05/18 [History [...] OPERATIVE REPORT Observed: 10/19/2018 Status: F Source: [place] 5:09 PM REPOSITORY [facility] Medical Records Department [address] [place] [address] Operative Report 10/18/181954 MR#: [id number] Acct: [id number] Name: GELY LACKEY Rep #: [id number] : 1970 48 From: Parth Watkins MD PCP: Aron Palumbo MD Status: [facility] Location: [facility] [place] [facility] Report of Operation Date of Procedure: 10/18/18 [...] were included in a form from the [employer]. Encouraged patient to stop smoking as it may have deleterious effects on wound healing. 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 Type of Anesthesia:: Local MAC - [...] No Code Visit Surgery Charges CPT - 91272 ICD-10 - R22.0, F17.200 40279 R22.0, F17.200 10/19/18 2906 <Electronically signed by Parth Watkins MD> Date Parth Watkins MD CC: Aron Palumbo MD; Parth Watkins MD Signed HISTORY AND PHYSICAL Observed: 10/19/2018 Status: F Source: [place] EXAM 5:02 PM REPOSITORY [facility] Medical Records Department [address] [place] [address] History and Physical 10/17/18 1700 MR#: [id number] Acct: [id number] Name: GELY LACKEY Rep #: [id number] : 1970 48 From: Parth Watkins MD PCP: Aron Palumbo MD Status: DEP [facility] Y Location: [facility] [place] History and Physical Date of Admission: 10/18/18 [...] [Potassium Citrate ER] Sodium Chloride [Saline Nasal [place]] FAMILY HISTORY Mother - Cervical cancer Grandmother [...] were included in a form from the [employer]. Encouraged patient to [...] DISCHARGE INSTRUCTION Observed: 10/18/2018 Status: F Source: [place] 8:43 AM REPOSITORY [facility] Medical Records Department [address] [place] [address] Instructions for Home/Discharge Instructions 10/18/18 0839 MR#: [id number] Acct: [id number] Name: GELY LACKEY Rep #: [id number] : 1970 48 From: Parth Watkins MD PCP: Aron Palumbo MD Status: REG [facility] You will use the following diet at [...] PO DAILY 03/05/18 Sodium Chloride [Saline Nasal [place]] 1 spray NS Q2H PRN 03/05/18 Buprenorphine [...] Parth Watkins MD When: one week. call [phone] for appt. Proposed Discharge Date: 10/18/18 10/18/18 0843 <Electronically signed by Parth Watkins MD> Date Parth Watkins MD CC: Aron Palumbo MD Signed BEDSIDE GLUCOSE Collected: 10/18/2018 Status: F Source: [place] 7:05 AM REPOSITORY TYPE CODE TESTS RESULT OUT OF REFERENCE UNITS RANGE LAB L501.080 70-110 mg/dL High BEDSIDE GLU 239 Result Comment: MANAGEMENT OF PATIENT CARE PER NURSING PROTOCOL Performed By: #### L501.080 #### [facility] Point of Care [address] [place] [address] MASS (DEFINE AREA) Observed: 10/18/2018 Status: F Source: [place] 12:00 AM REPOSITORY Patient: GELY LACKEY : 1970 (48/F) Acct Num: [id number] Phys: Parth Watkins MD Unit Num: [id number] Loc: [facility] Specimen: [id number] Received: 10/18/18 - 9177 Spec Type: Mass TISSUES 1 TISSUES: Cheek, [...] of embedding. / SJ:delaney 10/18/18 TC:5 CPT: 07901 HEADER OPERATION: Excision infected cystic lesion left [...] 10/22/18 <signature on file> Performed By: #### PMASS #### [facility] [place], [address] IMMUNOHISTOCHEMISTRY Observed: 10/18/2018 Status: F Source: [place] 12:00 AM REPOSITORY Patient: GELY LACKEY : 1970 (48/F) Acct Num: [id number] Phys: Roland CRABTREE,Parth Unit Num: [id number] Loc: [facility] [place] Specimen: [id number] Received: 10/22/18 - 1007 Spec Type: IMMUNO TISSUES 1 TISSUES: Cheek, NOS SPECIMEN INFORMATION: Tissue Source: Chronically infected soft tissue mass, left cheek Clinical Info: Chronically infected soft tissue mass, left cheek Specimen Number: [id number] CPT code: 92897, 05264 x3 METHODOLOGY: Deparaffinized sections of prefer/formalin-fixed tissue [...] developed and their performance characteristics determined by [facility]. They may not have been cleared or approved by the U.S. Food and Drug Administration. The FDA has determined that such clearance or approval is not necessary. INTERPRETATION: Chronically infected soft tissue mass, left cheek, excision: No evidence of malignancy. AM:delaney 10/22/18 PHYSICIAN [facility] INSTIT[facility] [address] [address] Signed Trey Medina, 10/22/18 <signature on file> Performed By: #### PIMM #### [facility] [address] [place] [address]. [place], [address] TOXASSURE COMPR Collected: 10/03/2018 Status: F Source: [facility] 3:24 PM [facility] REPOSITORY TYPE CODE TESTS RESULT OUT OF RANGE REFERENCE UNITS LAB L600.93088 () Normal TOXASSURE COMPR FINAL Result Comment: [...] clinical consultation, please call . Performed At: [facility] [address] [place] [id number] [facility] [phone] Performed By: #### L600.10467 #### [address] [address] URINALYSIS, COMPLETE Collected: 10/01/2018 Status: F Source: [place] 2:55 PM REPOSITORY Order Comment: How was Urine Obtained? [...] 5-10 SEEN Performed By: #### L400.0001 #### [facility] [address] [place], [address] Observed: 10/01/2018 Status: F Source: [place] CULTURE, URINE 2:55 PM REPOSITORY Urine Culture PREDOMINENT ORGANISM: 465[address] cfu/mL LACTOBACILLUS SPECIES ORGANISM 1: Mixed Gram Positive Organisms [place] Count 11,000-25,000 MIX CULTURE Mixed contaminants. Submit a new specimen if indicated. Performed By: #### M100.0650 #### [facility] [address] [place], [address] Observed: 09/25/2018 Status: F Source: [place] CULTURE, URINE 3:06 PM REPOSITORY Urine Culture Probable urogenital contamination. ORGANISM 1: Mixed Gram Positive Organisms [place] Count >100,000 Performed By: #### M100.0650 #### [facility] [address] [place], [place], [address] PLASTIC SURGERY Observed: 09/02/2018 Status: F Source: [place] VISIT REPORT 7:51 PM REPOSITORY [place] [facility] [address] [facility] [address] [place] [address] OFFICE VISIT Date of Service: 08/29/18 MR#: [id number] Acct: [id number] Name: GELY LACKEY Deborah Rep #: [id number] : 1970 Provider: Parth Watkins MD Age/Sex: 48/F [place] [facility] Status: Signed Intake Vital Signs08/29/18 Height 5 ft 5 in 08/29/18 Weight: 224 lb 2 oz Intake Visit Reasons: evaluation infected cystic lesion left cheek and evaluation breast reduction Benefit Specialist Required: No Accompanied by: None Is patient [...] [History Confirmed 08/29/18] Sodium Chloride [Saline Nasal [place]] 1 spray NS Q2H PRN 03/05/18 [History [...] were included in a form from the [employer]. Encouraged patient to [...] IN OR/PAIN Observed: 08/28/2018 Status: F Source: [facility] 7:28 AM [facility] REPOSITORY FLUOROSCOPY IN OR/PAIN MGT Ordering Physician: [...] IN OR/PAIN Observed: 08/16/2018 Status: F Source: [facility] 7:21 AM [facility] REPOSITORY FLUOROSCOPY IN OR/PAIN MGT Ordering Physician: [...] DOYLE M.D. Observed: 06/11/2018 Status: F Source: [place] CULTURE, WOUND 1:40 PM [facility] Gram Stain Gram Stain 2+ Red [...] 1 S (NF) indicates non-formulary drug at [facility]. Approval by Infectious Disease Specialist required before non-formulary drugs may be ordered and/or dispensed. * CLSI guidelines does not recommend testing of cephalosporins. This interpretation is deduced from Beta-lactam/penicillin results. Performed By: #### M100.1400 #### [facility] [address] [facility] [place], [address] FLUOROSCOPY IN OR/PAIN Observed: 06/05/2018 Status: F Source: [facility] MGT 6:37 AM [facility] FLUOROSCOPY IN OR/PAIN MGT Ordering Physician: [...] IN OR/PAIN Observed: 05/15/2018 Status: F Source: [facility] MGT 7:08 AM [facility] REPOSITORY FLUOROSCOPY IN OR/PAIN MGT Ordering Physician: [...] Status: F Source: [place] 9:02 AM REPOSITORY Order Comment: Order Date: 05/08/18 Order [...] 12 Performed By: #### L500.4050, L501.9520 #### [facility] [address] [place], [place], [address] THYROID STIM HORMONE Collected: 05/08/2018 Status: F Source: [place] (TSH) 9:02 AM REPOSITORY Order Comment: Order Date: 05/08/18 Order Info: 0786-1 - CMP Order Info: 3051-0 - T3F Order Info: 3016-3 - TSH Order Info: 3024-7 - T4F TYPE CODE TESTS RESULT OUT OF RANGE REFERENCE UNITS LAB L501.9520 0.358-3.74 uIU/mL High TSH 10.50 Performed By: #### L500.4050, L501.9520 #### [facility] [address] [place], [place], [address] FREE T3 Collected: 05/08/2018 Status: F Source: [place] 9:02 AM REPOSITORY Order Comment: Order Date: 05/08/18 Order Info: 0786-1 - CMP Order Info: 3051-0 - T3F Order Info: 3016-3 - TSH Order Info: 3024-7 - T4F TYPE CODE TESTS RESULT OUT OF RANGE REFERENCE UNITS LAB L501.91453 2.18-3.98 pg/mL High FREE T3 5.0 Performed By: #### L501.28435, L506.0400 #### [facility] [address] [place], [address] T4 FREE DIRECT Collected: 05/08/2018 Status: F Source: [place] 9:02 AM REPOSITORY Order Comment: Order Date: 05/08/18 Order Info: 0786-1 - CMP Order Info: 3051-0 - T3F Order Info: 3016-3 - TSH Order Info: 3024-7 - T4F TYPE CODE TESTS RESULT OUT OF RANGE REFERENCE UNITS LAB L506.0400 0.76-1.46 ng/dL Normal T4 FREE 1.08 DIRECT Performed By: #### L501.70790, L506.0400 #### [facility] [address] [place], [address] FLUOROSCOPY IN OR/PAIN Observed: 05/01/2018 Status: F Source: [facility] MGT 6:57 AM [facility] FLUOROSCOPY IN OR/PAIN MGT Ordering Physician: [...] 04/05/2018 Status: F Source: [place] 2:14 PM REPOSITORY [facility] Medical Records Department [address] [place] [address] Downtime Report MR#: [id number] Acct: [id number] Name: GELY LACKEY Rep #: [id number] : 1970 47 From: Josh Irby PCP: Aron Palumbo MD Status: REG CLI This patient was seen during an EMR downtime March 19, 2018 - March 26, 2018. This patient may have a combination of paper and electronic documentation or all paper documentation. All documentation is viewable within the e-chart portion of [facility] for each patient visit. ABD INC DECUB Observed: 03/26/2018 Status: F Source: [place] AND/OR ERECT 1:28 PM REPOSITORY [facility] Imaging Services [address] [place] [address] Abd Inc Decub and/or Erect MR#: [id number] Acct: [id number] Name: GELY LACKEY Rep #: [id number] : 1970 F 47 From: Clive Alonso DO PCP: Aron Palumbo MD Status: REG CLI Study: Abd Inc Decub and/or Erect Date of Exam: 03/20/18 Exam# [id number] Ordering Dr: Aron Palumbo MD STUDY: X-RAY [...] quadrant localized ileus. Electronically Signed: Clive Alonso at 16:23 EDT Tel [phone], Service support , CC: Aron Palumbo MD Regulatory Analyst: Signed CONSULTATION Observed: 03/18/2018 Status: F Source: [place] 2:56 PM REPOSITORY [facility] Medical Records Department [address] [place] [address] Consultation 03/06/18 1456 MR#: [id number] Acct: [id number] Name: GELY LACKEY Rep #: [id number] : 1970 47 From: Zoey Joyce MD PCP: Aron Palumbo MD Status: DIS IN Y Location: [place] [address] Problem List (1) Encephalopathy acute Status: Acute [...] release, 2, cholecystectomy. 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 Code Visit Inpatient E AND M: 21272 Init Hosp L3 03/18/18 1456 <Electronically signed by Zoey Joyce MD> Date Zoey Joyce MD Cosigner Signature (if applicable): Date CC: Catarina [place] MD; Aron Palumbo MD Signed ELECTROENCEPHALOGRAM Observed: 03/18/2018 Status: F Source: [place] 2:56 PM REPOSITORY [facility]/Neurology [address] [place] [address] MR#: [id number] Acct: [id number] Name: GELY LACKEY Rep #: [id number] : 1970 47 From: Zoey Joyce MD Referring Dr: Bassem Hathaway MD Status: DIS IN Ordering Dr: [id number] Sex: F C - Electroencephalogram Date of [...] Joyce MD> Date Zoey Joyce MD CC: aCtarina Joyce MD; Bassem Hathaway MD; Aron Palumbo MD Date Dictated: 03/06/181644 Date Transcribed: 03/06/181644 Regulatory Analyst: RSR Signed 12 LEAD ELECTROCARDIOGRAM Observed: 03/09/2018 Status: F Source: [place] 10:22 AM REPOSITORY [facility] Cardi[facility] Services [address] [place] [address] 12 Lead EKG 03/05/18 1454 MR#: [id number] Acct: [id number] Name: GELY LACKEY Rep #: [id number] : 1970 47 From: Francis Mckoy MD Attending Dr: Bassem Hathaway MD Status: DIS IN Ordering Dr: Chuck Zacarias MD Date: 03/05/18 Location: [facility] Sex: F C Admitted: 03/05/18 Test Reason [...] Borderline ECG Confirmed by EAN CRABTREE, FRANCIS ([id number]), subeditor VÍCTOR IRBY ([id number]) on 03/09/2018 10:22:11 AM Referred By: CRIS Confirmed By:FRANCIS MCKOY MD 03/09/18 1022 Date Francis Mckoy MD CC: Bassem Hathaway MD; Aron Palumbo MD; Chuck Zacarias MD Signed DISCHARGE SUMMARY Observed: 03/06/2018 Status: F Source: [place] 5:52 PM REPOSITORY [facility] Medical Records Department [address] [place] [address] Discharge Summary 03/06/18 1737 MR#: [id number] Acct: [id number] Name: GELY LACKEY Rep #: [id number] : 1970 47 From: Milo VAZQUEZ PCP: Aron Palumbo MD Status: ADM IN Y Location: [place] [id number] <Milo Delgado - Last Filed: 03/06/18 17:37> [...] function. This patient was seen by Milo Delgado PA-C under the supervision of Doctor Hathaway. [...] DAILY PRN 03/05/18 Sodium Chloride [Saline Nasal [place]] 1 spray NS Q2H PRN 03/05/18 Primary [...] PA-C Code Visit Inpatient E AND M: 12552 Disch Hosp 03/06/181750 <Electronically signed by [place] VA[place]QUEZ> Date Milo VAZQUEZ 03/06/18 175<Electronically signed by Bassem Hathaway MD> Cosigner Signature (if applicable): Date Bassem Hathaway MD CC: GEORGE Delgado; Bassem Hathaway MD; Aron Palumbo MD Signed DISCHARGE INSTRUCTION Observed: 03/06/2018 Status: F Source: [place] 5:37 PM REPOSITORY [facility] Medical Records Department [address] [place] [address] Instructions for Home/Discharge Instructions 03/06/18 1736 MR#: [id number] Acct: [id number] Name: GELY LACKEY Rep #: [id number] : 1970 47 From: Milo VAZQUEZ PCP: [...] DAILY PRN 03/05/18 Sodium Chloride [Saline Nasal [place]] 1 spray NS Q2H PRN 03/05/18 Primary Care Physician: Aron Palumbo MD [Primary Care Provider] - Please follow up with your Primary Care Physician in: 1-2 weeks Please Follow Up With: Zoey Joyce MD When: 2-3 weeks Proposed Discharge Date: 03/06/18 03/06/18 1737 <Electronically signed by [place] VAZQUEZ> Date [place] VAZQUEZ CC: Catarina Joyce MD; Aron Palumbo MD BEDSIDE GLUCOSE Collected: 03/06/2018 Status: F Source: [place] 5:03 PM REPOSITORY TYPE CODE TESTS RESULT OUT OF REFERENCE UNITS RANGE LAB L501.080 70-110 mg/dL High BEDSIDE GLU 268 Result Comment: MANAGEMENT OF PATIENT CARE PER NURSING PROTOCOL Performed By: #### L501.080 #### [facility] Point of Care [address] [place] [address] BRAIN/HEAD WITHOUT Observed: 03/06/2018 Status: F Source: [place] CONTRAST 2:26 PM REPOSITORY [facility] Imaging Services [address] [place] [address] Brain/Head without Contrast MR#: [id number] Acct: [id number] Name: GELY LACKEY Rep #: [id number] : 1970 F 47 From: Wilma Perez MD PCP: Aron Palumbo MD Status: ADM IN Study: Brain/Head without Contrast Date of Exam: 03/06/18 Exam# [id number] Ordering Dr: Milo Delgado STUDY: CT BRAIN [...] Perez MD at 16:30 EDT Tel Direct: [phone], Service support , CC: GEORGE Delgado; Aron Palumbo MD Regulatory Analyst: Signed BEDSIDE GLUCOSE Collected: 03/06/2018 Status: F Source: KIET 11:48 AM REPOSITORY TYPE CODE TESTS RESULT OUT OF REFERENCE UNITS RANGE LAB L501.080 70-110 mg/dL High BEDSIDE GLU 295 Result Comment: MANAGEMENT OF PATIENT CARE PER NURSING PROTOCOL Performed By: #### L501.080 #### [facility] Point [place] [address] BASIC METABOLIC Collected: 03/06/2018 Status: F Source: [place] PROFILE (BMP) 11:40 AM REPOSITORY TYPE CODE TESTS RESULT OUT OF [...] GAP 9 Performed By: #### L500.2500 #### [facility] [address] [place], [address] BEDSIDE GLUCOSE Collected: 03/06/2018 Status: F Source: KIET 7:00 AM REPOSITORY TYPE CODE TESTS RESULT OUT OF REFERENCE UNITS RANGE LAB L501.080 70-110 mg/dL High BEDSIDE GLU 226 Result Comment: MANAGEMENT OF PATIENT CARE PER NURSING PROTOCOL Performed By: #### L501.080 #### [facility] Point of Care [address] [place] [address] URINE DRUG SCREEN Collected: 03/06/2018 Status: F Source: [facility]IET (VISTA) 6:30 AM REPOSITORY Order Comment: List of Drugs Taken [...] THC POSITIVE Performed By: #### L505.5000 #### [facility] [address] [facility]. [place], [place], [id number] URINALYSIS, COMPLETE Collected: 03/06/2018 Status: F Source: [place] 6:30 AM REPOSITORY Order Comment: How was Urine Obtained? INFORMATION ASSURANCE TO SPECIFY TYPE CODE TESTS RESULT OUT [...] URINE SEEN Performed By: #### L400.0001 #### [facility] [address] [facility] [place], [address] CREATININE, URINE Collected: 03/06/2018 Status: F Source: [facility]IET (RANDOM) 6:30 AM REPOSITORY TYPE CODE TESTS RESULT OUT OF RANGE REFERENCE UNITS LAB L501.1200 NO RANGE EST. mg/dL Normal UR CREAT 134.00 Performed By: #### L501.1200 #### [facility] [address] [facility]. [place], [place], [address] URINE SODIUM Collected: 03/06/2018 Status: F Source: [place] 6:30 AM REPOSITORY TYPE CODE TESTS RESULT OUT OF RANGE REFERENCE UNITS LAB L501.5500 Not Establ. mmol/L Normal UR NA 138 Performed By: #### L501.5500 #### [facility] [place], [address] CBC W/DIFF, AUTOMATED Collected: 03/06/2018 Status: F Source: [place] 5:20 AM REPOSITORY TYPE CODE TESTS RESULT OUT OF [...] Lymph 4.88 Performed By: #### L100.0100 #### [facility] [address] [place], [address] LIPID PROFILE Collected: 03/06/2018 Status: F Source: [place] 5:20 AM REPOSITORY TYPE CODE TESTS RESULT OUT OF [...] VLDL 69 Performed By: #### L500.4100 #### [facility] [address] [place], [address] BEDSIDE GLUCOSE Collected: 03/05/2018 Status: F Source: [place] 10:50 PM REPOSITORY TYPE CODE TESTS RESULT OUT OF REFERENCE UNITS RANGE LAB L501.080 70-110 mg/dL High BEDSIDE GLU 249 Result Comment: MANAGEMENT OF PATIENT CARE PER NURSING PROTOCOL Performed By: #### L501.080 #### [facility] Point of Care [address] [place] [address] HEMOGLOBIN A1C Collected: 03/05/2018 Status: F Source: [place] 5:06 PM REPOSITORY TYPE CODE TESTS RESULT OUT OF RANGE REFERENCE UNITS LAB L501.9985 4.2-6.3 % High HGB A1C 8.3 Performed By: #### L501.9985 #### [facility] [address] [place], [address] AMMONIA Collected: 03/05/2018 Status: F Source: [facility] 5:06 PM REPOSITORY TYPE CODE TESTS RESULT OUT OF RANGE REFERENCE UNITS LAB L503.5510 11-32 umol/L Normal AMMONIA 22.0 Performed By: #### L503.5510 #### [facility] [address] [place], [address] LIPASE Collected: 03/05/2018 Status: F Source: [facility]IET 5:06 PM REPOSITORY TYPE CODE TESTS RESULT OUT OF RANGE REFERENCE UNITS LAB L501.2450 73-393 U/L Normal LIPASE 154 Performed By: #### L501.2450, L501.5200, L501.9520 #### [facility] [address] [facility] [place], [address] MAGNESIUM Collected: 03/05/2018 Status: F Source: [facility]IET 5:06 PM REPOSITORY TYPE CODE TESTS RESULT OUT OF RANGE REFERENCE UNITS LAB L501.5200 1.6-2.6 mg/dL Normal MG 2.0 Performed By: #### L501.2450, L501.5200, L501.9520 #### [facility] [address] [facility] [place], [address] THYROID STIM HORMONE Collected: 03/05/2018 Status: F Source: [facility] (TSH) 5:06 PM REPOSITORY TYPE CODE TESTS RESULT OUT OF RANGE REFERENCE UNITS LAB L501.9520 0.358-3.74 uIU/mL Normal TSH 2.48 Performed By: #### L501.2450, L501.5200, L501.9520 #### [facility] [address] [place], [address] BEDSIDE GLUCOSE Collected: 03/05/2018 Status: F Source: [facility] 4:57 PM REPOSITORY TYPE CODE TESTS RESULT OUT OF REFERENCE UNITS RANGE LAB L501.080 70-110 mg/dL High BEDSIDE GLU 311 Result Comment: MANAGEMENT OF PATIENT CARE PER NURSING PROTOCOL Performed By: #### L501.080 #### [facility] Point of Care [address] [place] [address] EMERGENCY DEPARTMENT Observed: 03/05/2018 Status: F Source: [place] SUMMARY 4:38 PM REPOSITORY [facility] Medical Records Department [address] [place] [address] Emergency Department Summary 03/05/18 1531 MR#: [id number] Acct: [id number] Name: GELY LACKEY Rep #: [id number] : 1970 47 From: Chuck Zacarias MD [...] to Lyrica but according to her soon-to-be fsruqv-bu-fxe is in the room she has been [...] is unchanged. I spoke to her soon-to-be kfatfy-wt-ekf and explained her she would be admitted for further evaluation and workup. I spoke to Dr. Hernandez the hospitalist who is going to admit the patient. Treatment Plan: [] Disposition: Admission Impression: Acute mental status change with confusion of uncertain etiology Hyperglycemia with a history of insulin-dependent diabetes Acute renal injury with elevated creatinine This note was generated with TwoF dictation software. It may contain incorrect words, [...] problems, contact your Primary Care Provider. Call [facility] ([phone]) or report to the closest Emergency Room. Call 911 if necessary. 03/05/18 1638 <Electronically signed by Chuck Zacarias MD> Date Chuck Zacarias MD Cosigner Signature (If Indicated): Date CC: Aron Palumbo MD LIVER Observed: 03/05/2018 Status: F Source: [place] 4:29 PM REPOSITORY [facility] [address] [place] [address] Liver MR#: [id number] Acct: [id number] Name: GELY LACKEY Rep #: [id number] : 1970 F 47 From: Wilma Perez MD PCP: Aron Palumbo MD Status: ADM IN Study: Liver Date of Exam: 03/05/18 Exam# [id number] Ordering Dr: Miranda eHrnandez STUDY: ABDOMINAL ULTRASOUND - RIGHT UPPER QUADRANT [...] Perez MD at 21:27 EDT Tel Direct: [phone], Service support , CC: Miranda Hernandez; Aron Palumbo MD Regulatory Analyst: Signed HISTORY AND PHYSICAL Observed: 03/05/2018 Status: F Source: [place] EXAM 4:11 PM REPOSITORY [facility] Medical Records Department [address] [place] [address] History and Physical 03/05/18 1527 MR#: [id number] Acct: [id number] Name: GELY LACKEY Rep #: [id number] : 1970 47 From: Miranda Hernandez PCP: Aron Palumbo MD Status: ADM IN Y Location: [place] [address] Problem List (1) Encephalopathy acute Status: Acute [...] mellitus type II who presents to the [facility] ED on 03/05/18 with history of onset increased confusion, lethargy and noted serial movements per finance and rzfhhb-yh-bvg over the last 12-24 hours, similar in [...] (Last Reviewed 12/12/17 @ 16:04 by Ting eDnis) HLD (hyperlipidemia) (Chronic) Tobacco use (Chronic) Obesity [...] release, 2, cholecystectomy. 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 Code Visit Inpatient E AND M: 50625 Init Hosp L3 03/05/18 1611 <Electronically signed by Miranda Hernandez > Date Miranda Cabrera Mary Cosigner Signature: Date (if applicable) CC: Miranda Hernandez; Aron Palumbo MD Signed CBC W/DIFF, AUTOMATED Collected: 03/05/2018 Status: F Source: KIET 2:20 PM REPOSITORY TYPE CODE TESTS RESULT OUT OF [...] Lymph 2.17 Performed By: #### L100.0100 #### [facility] [address] [place], [place], [address] BASIC METABOLIC Collected: 03/05/2018 Status: F Source: [place] PROFILE (BMP) 2:20 PM REPOSITORY TYPE CODE TESTS RESULT OUT OF [...] 12 Performed By: #### L500.2500, L500.3400 #### [facility] [address] [place], [place], [address] LIVER PROFILE Collected: 03/05/2018 Status: F Source: [place] 2:20 PM REPOSITORY TYPE CODE TESTS RESULT OUT OF [...] 0.15 Performed By: #### L500.2500, L500.3400 #### [facility] [address] [place], [address] BEDSIDE GLUCOSE Collected: 03/05/2018 Status: F Source: [place] 2:08 PM REPOSITORY TYPE CODE TESTS RESULT OUT OF REFERENCE UNITS RANGE LAB L501.080 70-110 mg/dL High BEDSIDE GLU 366 Result Comment: MANAGEMENT OF PATIENT CARE PER NURSING PROTOCOL Performed By: #### L501.080 #### [facility] Point of Care [address] [place] [address] CONSULTATION Observed: 02/01/2018 Status: F Source: [place] 10:04 AM REPOSITORY [facility] Medical Records Department [address] [place] [address] Consultation 01/31/18 1329 MR#: [id number] Acct: [id number] Name: GELY LACKEY Rep #: [id number] : 1970 47 From: Horacio Aguilera MD PCP: Aron Palumbo MD Status: DIS IN Y Location: NC3 AE650-7 Reason for Consult Date of Consultation: 01/31/18 [...] - Psychiatric History: No pertinent psych hx 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 Electronically Signed: Rufus Pike MD at 10:20 EDT Tel [phone], Service support , Brain MRI 01/30/18 11:26 [...] PO BID 11/04/17 Sodium Chloride [Saline Nasal [place]] 30 ml NS Q2H PRN PRN 11/04/17 [...] that apply): None applicable Code Visit Inpatient E KITA M: 28597 Disch Hosp 01/31/18 1217 <Electronically signed by Mariposa BILLSC> Date Mariposa BILLSC 01/31/18 1811<Electronically signed by Aron Sánchez DO> Cosigner Signature (if applicable): Date Aron Sánchez DO CC: HOUSE CLEANERLyssaC Mariposa Iverson; Aron Sánchez DO; Aron Palumbo MD Signed ECHOCARDIOGRAM COMPLETE Observed: 01/31/2018 Status: F Source: [place] 2:08 PM REPOSITORY [facility] [address] [place] [address] Echo Complete 01/31/18 0810 MR#: [id number] Acct: [id number] Name: GELY LACKEY Rep #: [id number] : 1970 47 From: Yoav Montes MD Attending Dr: Aron Sánchez DO Status: ADM IN Ordering Dr: Aron Sánchez DO Date: 01/30/18 Location: NC3 Sex: F C Admitted: 01/29/18 Version 2 [...] Physician: Aron Palumbo MD Performed By: Liz Quintana, RDHAYLIE 01/31/18 1407 Date Yoav Montes MD CC: Aron Sánchez DO; Aron Palumbo MD Date Dictated: 01/31/18 0810 Date Transcribed: 01/31/18 1403 Regulatory Analyst: Signed DISCHARGE INSTRUCTION Observed: 01/31/2018 Status: F Source: KIET 12:17 PM REPOSITORY [facility] Records Department [address] [place] [address] Instructions for Home/Discharge Instructions 01/31/18 1202 MR#: [id number] Acct: [id number] Name: GELY LACKEY Rep #: [id number] : 1970 47 From: Mariposa Iverson HOUSE CLEANERJoan PCP: Aron Palumbo MD Status: ADM IN [...] PO BID 11/04/17 Sodium Chloride [Saline Nasal [place]] 30 ml NS Q2H PRN PRN 11/04/17 [...] <Electronically signed by Mariposa KELLER> Date Mariposa KELLER CC: Aron Palumbo MD; Horacio Aguilera MD BEDSIDE GLUCOSE Collected: 01/31/2018 Status: F Source: [facility] 12:09 PM REPOSITORY TYPE CODE TESTS RESULT OUT OF REFERENCE UNITS RANGE LAB L501.080 70-110 mg/dL High BEDSIDE GLU 180 Result Comment: MANAGEMENT OF PATIENT CARE PER NURSING PROTOCOL Performed By: #### L501.080 #### [facility] Point of Care [address] [facility] [place], [place] [address] BEDSIDE GLUCOSE Collected: 01/31/2018 Status: F Source: KIET 6:36 AM REPOSITORY TYPE CODE TESTS RESULT OUT OF REFERENCE UNITS RANGE LAB L501.080 70-110 mg/dL High BEDSIDE GLU 142 Result Comment: MANAGEMENT OF PATIENT CARE PER NURSING PROTOCOL Performed By: #### L501.080 #### [facility] Point of Care [address] [facility] [place] [address] CBC-COMPLETE BLOOD CNT Collected: 01/31/2018 Status: F Source: [facility] NO DIFF 6:20 AM REPOSITORY TYPE CODE TESTS RESULT OUT OF [...] MPV 9.9 Performed By: #### L100.0500 #### [facility] [address] [place], [place], [address] BASIC METABOLIC Collected: 01/31/2018 Status: F Source: [place] PROFILE (BMP) 6:20 AM REPOSITORY TYPE CODE TESTS RESULT OUT OF [...] Performed By: #### L500.2500, L500.4100, L501.9520 #### [facility] [address] [place], [address] LIPID PROFILE Collected: 01/31/2018 Status: F Source: [place] 6:20 AM REPOSITORY TYPE CODE TESTS RESULT OUT OF [...] Performed By: #### L500.2500, L500.4100, L501.9520 #### [facility] [address] [facility] [place], [place], [address] THYROID STIM HORMONE Collected: 01/31/2018 Status: F Source: [facility] (TSH) 6:20 AM REPOSITORY TYPE CODE TESTS RESULT OUT OF RANGE REFERENCE UNITS LAB L501.9520 0.358-3.74 uIU/mL High TSH 6.42 Performed By: #### L500.2500, L500.4100, L501.9520 #### [facility] [address] [facility] [place], [place], [address] CORTISOL SERUM Collected: 01/31/2018 Status: F Source: [facility] 6:20 AM REPOSITORY TYPE CODE TESTS RESULT OUT OF REFERENCE UNITS RANGE LAB L509.6000 3.09-22.40 ug/dL High CORTISOL 30.40 Result Comment: Adult (AM) 4.30 - 22.40 ug/dL Adult (PM) 3.09 - 16.66 ug/dL Performed By: #### L509.6000 #### [facility] [address] [facility] [place], [place], [address] T4 FREE DIRECT Collected: 01/31/2018 Status: F Source: [facility] 6:20 AM REPOSITORY TYPE CODE TESTS RESULT OUT OF RANGE REFERENCE UNITS LAB L506.0400 0.76-1.46 ng/dL Normal T4 FREE 0.94 DIRECT Performed By: #### L506.0400 #### [facility] [address] [place], [address] BEDSIDE GLUCOSE Collected: 01/30/2018 Status: F Source: [place] 10:16 PM REPOSITORY TYPE CODE TESTS RESULT OUT OF REFERENCE UNITS RANGE LAB L501.080 70-110 mg/dL High BEDSIDE GLU 120 Result Comment: MANAGEMENT OF PATIENT CARE PER NURSING PROTOCOL Performed By: #### L501.080 #### [facility] Point of Care [address] [place] [address] BEDSIDE GLUCOSE Collected: 01/30/2018 Status: F Source: [place] 4:27 PM REPOSITORY TYPE CODE TESTS RESULT OUT OF REFERENCE UNITS RANGE LAB L501.080 70-110 mg/dL High BEDSIDE GLU 125 Result Comment: MANAGEMENT OF PATIENT CARE PER NURSING PROTOCOL Performed By: #### L501.080 #### [facility] Point of Care [address] [place] [address] 12 LEAD ELECTROCARDIOGRAM Observed: 01/30/2018 Status: F Source: [place] 3:17 PM REPOSITORY [facility] [address] [facility] [address] 12 Lead EKG 01/29/18 0959 MR#: [id number] Acct: [id number] Name: GELY LACKEY Rep #: [id number] : 1970 47 From: Francis Mckoy MD Attending Dr: Aron Sánchez DO Status: ADM IN Ordering Dr: Chuck Zacarias MD Date: 01/29/18 Location: NC3 Sex: F C Admitted: 01/29/18 Test Reason : CONFUSION Blood Pressure : / mmHG Vent. Rate : 078 BPM Atrial Rate : 078 BPM P-R Int : 146 ms QRS Dur : 080 ms QT Int : 380 ms P-R-T Axes : 064 028 047 degrees QTc Int : 433 ms Normal sinus rhythm Normal ECG Confirmed by EAN CRABTREE, FRANCIS ([id number]), subeditor VÍCTOR IRBY ([id number]) on 01/30/2018 3:16:57 PM Referred By: MIRZA Confirmed By:FRANCIS MCKOY MD 01/30/18 1517 Date Francis Mckoy MD CC: Aron Sánchez DO; Aron Palumbo MD; Chuck Zacarias MD Signed BRAIN WITHOUT Observed: 01/30/2018 Status: F Source: [place] CONTRAST 11:27 AM REPOSITORY [facility] [address] [place] [address] Brain without Contrast MR#: [id number] Acct: [id number] Name: GELY LACKEY Rep #: [id number] : 1970 F 47 From: Chuck Gonzales MD PCP: Aron Palumbo MD Status: ADM IN Study: Brain without Contrast Date of Exam: 01/30/18 Exam# [id number] Ordering Dr: Aron Sánchez DO STUDY: MRI [...] CC: Aron Sánchez DO; Aron Palumbo MD Regulatory Analyst: Signed BEDSIDE GLUCOSE Collected: 01/30/2018 Status: F Source: KIET 11:18 AM REPOSITORY TYPE CODE TESTS RESULT OUT OF REFERENCE UNITS RANGE LAB L501.080 70-110 mg/dL High BEDSIDE GLU 186 Result Comment: MANAGEMENT OF PATIENT CARE PER NURSING PROTOCOL Performed By: #### L501.080 #### [facility] Point of Care [address] [facility] [place] [address] BEDSIDE GLUCOSE Collected: 01/30/2018 Status: F Source: KIET 6:56 AM REPOSITORY TYPE CODE TESTS RESULT OUT OF REFERENCE UNITS RANGE LAB L501.080 70-110 mg/dL High BEDSIDE GLU 133 Result Comment: MANAGEMENT OF PATIENT CARE PER NURSING PROTOCOL Performed By: #### L501.080 #### [facility] Point of Care [address] [facility] [place] [address] CBC W/DIFF, AUTOMATED Collected: 01/30/2018 Status: F Source: KIET 5:50 AM REPOSITORY TYPE CODE TESTS RESULT OUT OF [...] Lymph 3.74 Performed By: #### L100.0100 #### [facility] [address] [place], [address] BASIC METABOLIC Collected: 01/30/2018 Status: F Source: [place] PROFILE ([facility]) 5:50 AM REPOSITORY TYPE CODE TESTS RESULT OUT OF [...] GAP 7 Performed By: #### L500.2500 #### [facility] [address] [place], [address] BEDSIDE GLUCOSE Collected: 01/29/2018 Status: F Source: [place] 10:42 PM REPOSITORY TYPE CODE TESTS RESULT OUT OF REFERENCE UNITS RANGE LAB L501.080 70-110 mg/dL High BEDSIDE GLU 131 Result Comment: MANAGEMENT OF PATIENT CARE PER NURSING PROTOCOL Performed By: #### L501.080 #### [facility] Point of Care [address] [place], [place] [address] HISTORY AND PHYSICAL Observed: 01/29/2018 Status: F Source: [place] EXAM 5:31 PM REPOSITORY [facility] Medical Records Department [address] [place] [address] History and Physical 01/29/18 1608 MR#: [id number] Acct: [id number] Name: GELY LACKEY Deborah Rep #: [id number] : 1970 47 From: Mariposa Iverson HOUSE CLEANER-C PCP: Aron Palumbo MD Status: ADM IN Y Location: NC3 II282-8 <Mariposa Iverson - Last Filed: 01/29/18 16:32> [...] asked what year it is patient states [place]. She answers [place] to various other questions. 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 This patient was seen by KRISHNA Cody under the supervision of Dr. Sánchez. 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 Lives: Spouse/ Significant Other [...] heparin Code Visit Inpatient E AND M: 99378 Init Hosp L3 01/29/18 1632 <Electronically signed by Mariposa Iverson HOUSE CLEANER-C> Date Mariposa Iverson HOUSE CLEANER-C 01/29/18 1731<Electronically signed by Aron Sánchez DO> Cosigner Signature: Date (if applicable) Aron Sánchez DO CC: HOUSE CLEANER-C Mariposa Iverson; Aron Sánchez DO; Aron Palumbo MD Signed BEDSIDE GLUCOSE Collected: 01/29/2018 Status: F Source: [place] 5:21 PM REPOSITORY TYPE CODE TESTS RESULT OUT OF REFERENCE UNITS RANGE LAB L501.080 70-110 mg/dL High BEDSIDE GLU 121 Result Comment: MANAGEMENT OF PATIENT CARE PER NURSING PROTOCOL Performed By: #### L501.080 #### [facility] Point of Care [address] [facility] [place] [address] EMERGENCY DEPARTMENT Observed: 01/29/2018 Status: F Source: [facility] SUMMARY 5:00 PM REPOSITORY [facility] Records Department [address] [place] [address] Emergency Department Summary 01/29/18 0947 MR#: [id number] Acct: [id number] Name: GELY LACKEY Rep #: [id number] : 1970 47 From: Chuck Zacarias MD PCP: Aron Palumbo MD Status: ADM IN - ER Visit Summary Date of Service: 01/29/18 Chief Complaint: Confusion History of Present Illness: The patient is a 47 F 3 of chronic pain, reflux, zyh-xpigsnw-gezxtlbyb diabetes, hypothyroidism and chronic back pain. Patient brought in by her significant other who has been her male warrant server for 20 years. He states he has [...] of diabetes This note was generated with Celframeation software. It may contain incorrect words, spelling, [...] your Primary Care Provider. Call [facility] ([phone]) or report to the closest Emergency Room. Call 911 if necessary. 01/29/18 1700 <Electronically signed by Chuck Zacarias MD> Date Chuck Zacarias MD Cosigner Signature (If Indicated): Date CC: Aron Palumbo MD URINE DRUG SCREEN Collected: 01/29/2018 Status: F Source: KIET (VISTA) 4:15 PM REPOSITORY TYPE CODE TESTS RESULT OUT OF [...] Normal NEGATIVE Performed By: #### L505.5000 #### [facility] [address] [place], [place], [address] URINALYSIS, COMPLETE Collected: 01/29/2018 Status: F Source: KIET 10:30 AM REPOSITORY Order Comment: Order Date: 01/29/18 Has [...] 0-5 SEEN Performed By: #### L400.0001 #### [facility] [address] [place], [address] CBC W/DIFF, AUTOMATED Collected: 01/29/2018 Status: F Source: KIET 9:50 AM REPOSITORY TYPE CODE TESTS RESULT OUT OF [...] Lymph 3.59 Performed By: #### L100.0100 #### [facility] [address] [place], [address] BASIC METABOLIC Collected: 01/29/2018 Status: F Source: [place] PROFILE ([facility]) 9:50 AM REPOSITORY TYPE CODE TESTS RESULT OUT OF [...] 6 Performed By: #### L500.2500, L500.3400 #### [facility] [address] [facility] [place], [place], [address] LIVER PROFILE Collected: 01/29/2018 Status: F Source: [place] 9:50 AM REPOSITORY TYPE CODE TESTS RESULT OUT OF [...] 0.13 Performed By: #### L500.2500, L500.3400 #### [facility] [address] [facility] [place], [place], [address] HEMOGLOBIN A1C Collected: 01/29/2018 Status: F Source: [place] 9:50 AM REPOSITORY TYPE CODE TESTS RESULT OUT OF RANGE REFERENCE UNITS LAB L501.9985 4.2-6.3 % High HGB A1C 7.4 Performed By: #### L501.9985 #### [facility] [address] [place], [place], [address] CHEST 1 VIEW Observed: 01/29/2018 Status: F Source: KIET (PORTABLE) 9:46 AM [facility] REPOSITORY [facility] [address] [place] [address] Chest 1 View (Portable) MR#: [id number] Acct: [id number] Name: GELY LACKEY Rep #: [id number] : 1970 F 47 From: Rufus Pike MD PCP: Linwood CRABTREE,Aron Status: REG ER Study: Chest 1 View (Portable) Date of Exam: 01/29/18 Exam# [id number] Ordering Dr: Chuck Zacarias MD STUDY: X-RAY [...] Rufus Pike MD at 10:20 EDT Tel [phone], Service support , CC: Aron Palumbo MD; Chuck Zacarias MD Regulatory Analyst: Signed BRAIN/HEAD WITHOUT Observed: 01/29/2018 Status: F Source: [place] CONTRAST 9:46 AM REPOSITORY [facility] [address] [place] [address] Brain/Head without Contrast MR#: [id number] Acct: [id number] Name: GELY LACKEY Rep #: [id number] : 1970 F 47 From: Rufus Pike MD PCP: Aron Paulmbo MD Status: REG ER Study: Brain/Head without Contrast Date of Exam: 01/29/18 Exam# [id number] Ordering Dr: Chuck Zacarias MD STUDY: CT [...] Rufus Pike MD at 10:30 EDT Tel [phone], Service support , CC: Aron Palumbo MD; Chuck Zacarias MD Regulatory Analyst: Signed BEDSIDE GLUCOSE Collected: 01/29/2018 Status: F Source: [place] 9:30 AM REPOSITORY TYPE CODE TESTS RESULT OUT OF REFERENCE UNITS RANGE LAB L501.080 70-110 mg/dL High BEDSIDE GLU 146 Result Comment: MANAGEMENT OF PATIENT CARE PER NURSING PROTOCOL Performed By: #### L501.080 #### [facility] Point of Care [address] [place] [address] PROGRESS Observed: 01/22/2018 Status: COMPLETED Source: [place] 11:23 AM [facility] REPOSITORY HNO ID: [id number] Author: Vandana (Pt) Arnulfo Service: (none) Author Type: Physical Therapist Type: Progress Notes Filed: 01/22/2018 11:24 AM Note Text: [facility] PHYSICAL THERAPY [...] GASTRIC EMPTYING Observed: 01/19/2018 Status: F Source: [place] STUDY 10:11 AM REPOSITORY [facility] [address] [place] [address] Gastric Emptying Study MR#: [id number] Acct: [id number] Name: GELY LACKEY Deborah Rep #: [id number] : 1970 F 47 From: Abdoul Harris DO PCP: Aron aPlumbo MD Status: REG CLI Study: Gastric Emptying Study Date of Exam: 01/19/18 Exam# [id number] Ordering Dr: Nate Coyne MD CLINICAL: 47-year-old [...] throughout all components of the examination. (Norberto et al, J Nucl Med Tech 38: 186, 2010). Electronically Signed: Abdoul Harris DO at 13:31 EDT Tel , Service support , CC: Aron Palumbo MD; Nate oCyne Regulatory Analyst: Signed ORTHOPEDIC VISIT Observed: 12/15/2017 Status: F Source: [place] REPORT 11:49 AM REPOSITORY [facility] Sports Medicine [address] [place] [address] OFFICE VISIT Date of Service: 12/12/17 MR#: [id number] Acct: [id number] Name: GELY LACKEY Rep #: [id number] : 1970 Provider: Margaret Tobin MD Age/Sex: 47/F [place] [facility]: Signed Intake Intake Visit Reasons: Low [...] [History Confirmed 11/04/17] Sodium Chloride [Saline Nasal [place]] 30 ml NS Q2H PRN PRN 11/04/17 [...] 12/13/2017 Status: F Source: [place] 3:53 PM REPOSITORY TYPE CODE TESTS RESULT OUT OF REFERENCE UNITS RANGE LAB L9100.0210 0.55-1.02 mg/dL High CREATININE WB 1.2 LAB L9100.0220 >60 mL/min Low EGFR WB 50.0000 Performed By: #### L9100.0200 #### [facility] Point of Care [address] [place] [address] ABDOMEN WITH IV Observed: 12/13/2017 Status: F Source: [place] CONTRAST 3:45 PM REPOSITORY [facility] [address] [place] [address] Abdomen WITH IV Contrast MR#: [id number] Acct: [id number] Name: GELY LACKEY Rep #: [id number] : 1970 F 47 From: Boy Castañeda MD PCP: Aron Palumbo MD Status: REG CLI Study: Abdomen WITH IV Contrast Date of Exam: 12/13/17 Exam# [id number] Ordering Dr: Aron Palumbo MD STUDY: CT [...] Service support , CC: Aron Palumbo MD Regulatory Analyst: Signed PROGRESS Observed: 12/04/2017 Status: COMPLETED Source: [place] 4:23 PM [facility] [place] REPOSITORY O ID: [id number] Author: Vandana (Pt) Arnulfo Service: (none) Author [...] visual cuing. Patient education as noted. Billing: [facility]: Therapeutic Exercise (74123): 1:1 time: 45 minutes (3 units: 38-52 mins) Total time: 45 minutes Vandana Arredondo PT CNTHERAPY Observed: 12/04/2017 Status: COMPLETED Source: [place] 4:15 PM [facility] REPOSITORY OT/PT/Speech Visit (PTWS) GELY LACKEY ([id number]) 1970 F Date Time Provider Department 12/04/17 4:15 PM VANDANA ARREDONDO (PT) PTWS Date Time Provider Department Center 12/04/2017 4:15 PM [id number]-HQSCHVANDANA RAREDONDO (PT) PTWS [facility] KIET Reason for Visit: Physical Therapy [503] [...] twice da* Progress Notes: Vandana Arredondo, PT 12/04/2017 7:01 PM Signed Episode Visit [...] visual cuing. Patient education as noted. Billing: [facility]: Therapeutic Exercise (90049): 1:1 time: 45 minutes (3 units: 38-52 mins) Total time: 45 minutes Vandana Arredondo, PT Vandana Arredondo PT 01/22/2018 11:24 AM Signed [facility] PHYSICAL THERAPY [...] PT PROGRESS Observed: 12/01/2017 Status: COMPLETED Source: [place] 2:50 PM [facility] REPOSITORY HNO ID: [id number] Author: Vandana (Pt) Arnulfo Service: (none) Author [...] for improved function without increased pain. Billing: [facility]: Therapeutic Exercise (35082): 1:1 time: 40 minutes (3 units: 38-52 mins) Total time: 40 minutes Vandana Arredondo PT CNTHERAPY Observed: 12/01/2017 Status: COMPLETED Source: [place] 2:30 PM [facility] REPOSITORY OT/PT/Speech Visit (PTWS) GELY LACKEY ([id number]) 1970 F Date Time Provider Department 12/01/17 2:30 PM VANDANA ARREDONDO (PT) PTWS Date Time Provider Department Center 12/01/2017 2:30 PM [id number]-MVMMFVANDANA ARREDONDO (PT) PTWS [facility] KIET Reason for Visit: Physical Therapy [503] [...] THERAPY PHYSICAL THERAPY TREATMENT NOTE ASSESSMENT: Gely Littlebashirporter demonstrated difficulty with increased pain and migraine [...] for improved function without increased pain. Billing: [facility]: Therapeutic Exercise (39916): 1:1 time: 40 minutes (3 units: 38-52 mins) Total time: 40 minutes Vandana Arredondo PT PROGRESS Observed: 11/27/2017 Status: COMPLETED Source: [place] 4:28 PM [facility] REPOSITORY HNO ID: [id number] Author: Vandana (Pt) Arnulfo Service: (none) Author [...] visual cuing. Patient education as noted. Billing: [facility]: Therapeutic Exercise (88348): 1:1 time: 43 minutes (3 units: 38-52 mins) Total time: 43 minutes Vandana Arredondo PT CNTHERAPY Observed: 11/27/2017 Status: COMPLETED Source: [place] 4:15 PM [facility] REPOSITORY OT/PT/Speech Visit (PTWS) MOUSTAPHA LACKEYIA ([id number]) 1970 F Date Time Provider Department 11/27/17 4:15 PM VANDANA ARREDONDO (PT) PTWS Date Time Provider Department Center 11/27/2017 4:15 PM [id number]-GEMFDVANDANA ARREDONDO (PT) PTWS [facility] KIET Reason for Visit: Physical Therapy [503] [...] visual cuing. Patient education as noted. Billing: [facility]: Therapeutic Exercise (77740): 1:1 time: 43 minutes (3 units: 38-52 mins) Total time: 43 minutes Vandana Arredondo, PT ORTHOPEDIC VISIT Observed: 11/25/2017 Status: F Source: [place] REPORT 10:24 PM [facility] Medicine [address] [place] [address] OFFICE VISIT Date of Service: 11/07/17 MR#: [id number] Acct: [id number] Name: GELY LACKEY Rep #: [id number] : 1970 Provider: Margaret Tobin MD Age/Sex: 47/F Location[place] [facility] Status: Signed with Addenda ADDENDUM by Margaret Tobin MD on 11/25/17 at 2223 Addendum entered and electronically signed by Margaret Tobin MD 11/25/17 22:23: BMI 46 11/25/17 2224 <Electronically signed by Margaret Tobin MD> Date [...] [History Confirmed 11/04/17] Sodium Chloride [Saline Nasal [place]] 30 ml NS Q2H PRN PRN 11/04/17 [...] 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 She has had spinal injections [...] additional complaints, except as docu Musc Reports back pain, Reports stiffness Skin/Breast Reports system reviewed and no additional complaints, except as docu Neuro Yes system reviewed and no additional complaints, except as docu Psych Reports system reviewed and no additional complaints, except as docu Endo Reports system reviewed and no additional complaints, except as docu Ortho Exam Spine Neuro: Yes Sahu's (negative [...] pain 3. DM 4. nicotine use Ms. Lcakey presents with back and bilateral leg pain. [...] sciatica Sciatica laterality: sciatica laterality unspecified 11/25/17 8872 <Electronically signed by Margaret Tobin MD> Date Margaret Tobin MD Cosigner Signature: Date (if applicable) CC: Aron Palumbo MD SPINE LUMBAR Observed: 11/23/2017 Status: F Source: [place] (ROUTINE) 3:44 PM REPOSITORY [facility] [address] [place] [address] Spine Lumbar (Routine) MR#: [id number] Acct: [id number] Name: GELY LACKEY Rep #: [id number] : 1970 F 47 From: Tommy Petersen MD PCP: Aron Palumbo MD Status: REG CLI Study: Spine Lumbar (Routine) Date of Exam: 11/23/17 Exam# [id number] Ordering Dr: Margaret Tobin MD STUDY: MRI [...] CC: Margaret Tobin MD; Aron Palumbo MD Regulatory Analyst: Signed CBC W/DIFF, AUTOMATED Collected: 11/21/2017 Status: F Source: [place] 4:41 PM REPOSITORY Order Comment: Order Date: 11/07/17 Order Info: 0184-1 - CBCD Order Info: 33295-8 - SED TYPE CODE TESTS RESULT OUT [...] 4.84 Performed By: #### L100.0100, L101.9900 #### [facility] [address] [place], [address] #### L3100.5475 #### [facility] (refer to report for specific site) refer to report for address and phone number ERYTHROCYTE SED RATE Collected: 11/21/2017 Status: F Source: [place] 4:41 PM REPOSITORY Order Comment: Order Date: 11/07/17 Order Info: 0184-1 - CBCD Order Info: 78327-1 - SED TYPE CODE TESTS RESULT OUT OF RANGE REFERENCE UNITS LAB L102.0000 0-20 mm/hr High SED RATE 50 Performed By: #### L100.0100, L101.9900 #### [facility] [place], [address] #### L3100.5475 #### [facility] (refer to report for specific site) refer to report for address and phone number ANTINUCLEAR ANTIBODIES Collected: 11/21/2017 Status: F Source: [place] DIRECT 4:41 PM REPOSITORY Order Comment: Order Date: 11/07/17 Order Info: 0270-1 - MARVA TYPE CODE TESTS RESULT OUT OF RANGE REFERENCE UNITS LAB L3100.5475 Negative Normal Negative MARVA-DIRECT Result Comment: Performed at: [facility] [id number] [employer] Inserting Machine Operator: Nate Craig PhD, Phone: [phone] Performed By: #### L100.0100, L101.9900 #### [facility] [place], [address] #### L3100.5475 #### [facility] (refer to report for specific site) refer to report for address and phone number CRP Collected: 11/21/2017 Status: F Source: [place] 4:41 PM REPOSITORY TYPE CODE TESTS RESULT OUT OF RANGE REFERENCE UNITS LAB L501.6710 0.0-3.0 mg/L High 12.90 C-REACTIVE PROT Result Comment: C-Reactive Protein (CRP) provides useful information for the diagnosis, therapy and monitoring of inflammatory processes and associated diseases. For the evaluation of Relative Risk for Cardiovascular Disease, a High Sensitivity CRP (HSCRP) should be ordered. Performed By: #### L501.6710 #### [facility] [address] [place], [address] PROGRESS Observed: 11/20/2017 Status: COMPLETED Source: [place] 1:39 PM [facility] [place] REPOSITORY HNO ID: [id number] Author: Vandana (Pt) Arnulfo Service: (none) Author [...] of Care: created on 11/20/17 through 01/18/18 [place] in home exercise program. Patient will decrease [...] visual cuing. Patient education as noted. Billing: [facility]: Evaluation - Low Complexity (88116) Therapeutic Exercise (39737): 1:1 time: 20 minutes (1 unit: 8-22 mins) Total time: 50 minutes Vandana Arredondo PT CNTHERAPY Observed: 11/20/2017 Status: COMPLETED Source: [place] 1:30 PM [facility] [place] REPOSITORY OT/PT/Speech Visit (PTWS) GELY LACKEY ([id number]) 1970 F Date Time Provider Department 11/20/17 1:30 PM VANDANA ARREDONDO (PT) PTWS Date Time Provider Department Center 11/20/2017 1:30 PM [id number]-SVOELVANDANA ARREDONDO (PT) PTWS [facility] KIET Reason for Visit: PT Eval [747] [...] of Care: created on 11/20/17 through 01/18/18 [place] in home exercise program. Patient will decrease [...] visual cuing. Patient education as noted. Billing: [facility]: Evaluation - Low Complexity (25548) Therapeutic Exercise (63419): 1:1 time: 20 minutes (1 unit: 8-22 mins) Total time: 50 minutes Vandana Arredondo PT Letter Text ALLERGIES ALLERGIES DATE TYPE / CODE NAME / CODE REACTION SEVERITY SOURCE Drug Sulfa Rash Unknown [place] 9 Allergy/018578034( (Sulfonamide [facility] SNOMED CT) Antibiotics)/[address] [address]38[address](RXNORM Repository ) Drug codeine/A532407 Rash Unknown [place] 9 Allergy/880973291( 550(RXNORM) [facility] SNOMED CT) Hospital Repository Drug nabumetone/F006 Rash Unknown [place] 9 Allergy/598140712( 941910(RXNORM) [facility] SNOMED CT) Hospital Repository Miscellaneous albuterol Laryngospasms Unknown [place] 9 Allergy/932906089( [facility] SNOMED CT) Hospital Repository Drug pregabalin/F006 confusion/deliriu Unknown [place] 9 Allergy/931235426( 751811(RXNORM) [facility] DRUG ALLOPURINOL HIVES [place] 5 INGREDI/699021236( Clinic Main SNOMED CT) [place] Repository DRUG CODEINE [facility] 5 INGREDI/397888669( Clinic Main SNOMED CT) [place] Repository DRUG NABUMETONE [facility] 5 INGREDI/198557171( Clinic Main SNOMED CT) [place] Repository DRUG/988267186(SNO SULFUR-SOD [facility] [address]) SUL,THIOSUL-MFO [facility] Main LATE [place] Repository Drug SULFA [facility] 8 Class/016969573(SN (SULFONAMIDE Clinic Main OMED CT) ANTIBIOTICS) [place] Repository ENCOUNTERS ENCOUNTERS ADMIT/DISCHARGE ACCOUNT ADMITTING ENCOUNTER LOCATION SOURCE NUMBER CLASS 10/24/2018/10/24/19 [id number] Ambulatory BMSBuilding:[place] [facility] [place] Repository 10/18/2018 [id number] Ambulatory BMSBuilding:[place] MS.CF.[facility] Repository 10/18/2018/10/18/19 [id number] Ambulatory [address] Hospital ing:SDCRoom: Repository AC02 10/17/2018 [id number] Ambulatory BMSBuilding:[place] MS.CF.[facility] Repository 10/03/2018 [id number] [facility] [place] g:H.PMJ Repository 10/01/2018 [id number] Ambulatory [facility] Hospital ing:LABSPEC Repository 09/25/2018 [id number] Ambulatory [facility] Hospital ing:LABSPEC Repository 08/29/2018/08/29/20 [id number] Ambulatory BMSBuilding:B [place] 18 [facility] Repository 08/28/2018 [id number] Inpatient [facility] Medical Encounter [facility] [place] g:H.PMJ Repository 08/16/2018 [id number] Inpatient [facility] Medical Encounter [facility] [place] g:H.PMJ Repository 08/08/2018 [id number] [facility] [place] g:H.PMJ Repository 06/11/[id number] [facility] ing:LABSPEC Repository 06/05/2018 [id number] Inpatient [facility] Medical Encounter [facility] [place] g:H.PMJ Repository 06/04/2018 [id number] [facility] [place] g:H.PMJ Repository 05/15/2018 [id number] Inpatient [facility] Repository 05/08/[id number] [facility] ing:MFPLAB Repository 05/02/2018 [id number] [facility] g:H.PMJ Repository 05/01/2018 [id number] Inpatient [facility] Medical Encounter [place] [facility] g:H.PMJ Repository 04/02/2018 [id number] [facility] Repository 03/20/[id number] [facility] ing:MTRAD Repository 03/05/2018/03/06/20 [id number] Mirnada Hernandez Inpatient [address] ing:PCURoom: Repository IYG166Drh: 1 03/05/2018 [id number] Miranda Hernandez Ambulatory BMSBuilding:B [place].[facility] Repository 03/05/2018 [id number] Miranda Hernandez Ambulatory BMSBuilding:B [place].[facility] Repository 01/29/2018/02/01/20 [id number] Aron Sánchez Inpatient [address] ing:OR0Choe: Repository JG915Ult: 1 01/29/2018 [id number] Aron Sánchez Ambulatory BMSBuilding:[place].[facility] Repository 01/29/2018/02/01/20 [id number] Ambulatory BMSBuilding:[place] [facility] Repository 01/29/2018 [id number] Aron Sánchez Ambulatory BMSBuilding:B [place] [facility] Repository 01/19/[id number] [facility] ing:NM Repository 12/13/[id number] [facility] ing:CT Repository 12/12/2017/12/12/19 [id number] Ambulatory BMSBuilding:B [place] 18 [facility] Repository 12/04/2017/12/07/19 [id number] Ambulatory [address] Repository 12/01/2017/12/05/19 [id number] Ambulatory [address] Repository 11/27/2017/11/28/19 [id number] Ambulatory [address] Repository 11/23/[id number] [facility] ing:MRI Repository 11/21/2017 [id number] [facility] ing:MFPLAB Repository 11/20/2017/11/22/19 [id number] Ambulatory [address] Repository 11/07/2017/11/07/19 [id number] Ambulatory BMSBuilding:B [place] 18 [facility] Repository PAYERS PAYERS ENCOUNTER GUARANTOR PAYER SUBSCRIBER SOURCE 10/24/2018 GELY [place] [id number] Insurance:MEDICARE TOMBLINDOB: [facility] [id number] Number: Repository [address]Rgo: 330 [id number] [phone] () Date:2018-10-19 10/24/2018 Secondary GELY L [place] Insurance:MEDICAIDPol TOMBLINDOB: [facility] Number: [id number] Hospital [id number] Repository Date:2018-10-19 10/24/2018 Tertiary NOT GIVENUNK [place] Insurance:SELF PAY [facility] Number: Effective Repository Date:2018-10-24 10/18/2018 GELY Cabrera Primary GELY L [place] [id number] Insurance:MEDICARE TOMBLINDOB: [facility] [id number] Number: Repository [address]Ofw: (330 [id number] [phone] (HP) Date:2018-09-11 10/18/2018 Secondary GELY L [place] Insurance:MEDICAIDPol TOMBLINDOB: Community icy Number: [id number] Hospital [id number] Repository Date:2018-09-11 10/18/2018 Tertiary NOT GIVENUNK [place] Insurance:SELF PAY [facility] Number: Effective Repository Date:2018-10-18 10/18/2018 GELY Cabrera Primary GELY L [place] [id number] Insurance:MEDICARE TOMBLINDOB: [facility] PART A [facility] [id number] Number: Repository [address]Xkd: (330) [id number] [phone] () Date:2018-09-11 10/18/2018 Secondary GELY L [place] Insurance:MEDICAIDPol TOMBLINDOB: Community icy Number: [id number] Hospital [id number] Repository Date:2018-09-11 10/18/2018 Tertiary NOT GIVENUNK [place] Insurance:SELF PAY [facility] Number: Effective Repository Date:2018-09-11 10/17/2018 GELY Cabrera Primary GELY Cabrera [place] [id number] Insurance:MEDICARE TOMBLINDOB: [facility] PART A [facility] [id number], [place] Number: Repository 13387Dmx: (330) [id number] [phone] () Date:2018-09-11 10/17/2018 Secondary GELY L [place] Insurance:MEDICAIDPol TOMBLINDOB: Community icy Number: [id number] Hospital [id number] Repository Date:2018-09-11 10/17/2018 Tertiary NOT GIVENUNK [place] Insurance:SELF PAY [facility] Number: Effective Repository Date:2018-10-17 10/03/2018 GELY Primary GELY [facility] [id number] Insurance:[facility] icy Number: Repository [place], [place] [id number] [address]Kit: (330) Date:[phone] (HP) 074535WEEU CODE EX351NVGQYJUMEL[place], [place] [address]NA: 10/03/2018 Secondary GELY Piña Medical Insurance:MEDICAID [facility] Number: Repository [id number] Date:[address], [place] [address]MV: 10/01/2018 GELY Cabrera Primary GELY Cabrera [place] [id number] Insurance:MEDICARE TOMBLINDOB: [facility] PART A [facility] [id number], [place] Number: Repository [address]Tqn: 330 [id number] [phone] () Date:2018-10-01 10/01/2018 Secondary GELY Cabrera [place] Insurance:MEDICAIDPol [facility]: [facility] ic Number: [id number] Hospital [id number] Repository Date:2018-10-01 10/01/2018 Tertiary NOT GIVENUNK [place] Insurance:SELF PAY [facility] Number: Effective Repository Date:2018-10-01 09/25/2018 GELY Cabrera Primary GELY L [place] [id number] Insurance:MEDICARE TOMBLINDOB: [facility] PART A [facility] [id number], [place] Number: Repository [address]Wei: 330 [id number] [phone] () Date:2018-09-25 09/25/2018 Secondary GELY L [place] Insurance:MEDICAIDPol TOMBLINDOB: [facility] ic Number: [id number] Hospital [id number] Repository Date:2018-09-25 09/25/2018 Tertiary NOT GIVENUNK [place] Insurance:SELF PAY [facility] Number: Effective Repository Date:2018-09-25 08/29/2018 GELY Cabrera Primary GELY L [place] [id number] HIGH Insurance:MEDICARE TOMBLINDOB: [place] PART A [facility] [id number] Hospital [address]Scf: 330) Number: Repository [phone] (HP) [id number] Date:2018-05-17 08/29/2018 Secondary GELY L [place] Insurance:MEDICAIDPol TOMBLINDOB: Community icy Number: [id number] Hospital [id number] Repository Date:2018-05-17 08/29/2018 Tertiary TRACE HOSKINSUNK [place] Insurance:SELF PAY [facility] Number: Effective Repository Date:2018-08-28 08/28/2018 GELY Primary GELY Piña [facility] [id number] HIGH Insurance:MEDICAREPol TOMBLINUNK [place] icy Number: Repository [address]Bqe: 330 [id number] [phone] (HP) Date:[address] CODE WR795JNVDBNLA, [place] [address]DL: 08/28/2018 Secondary GELY Piña Medical Insurance:MEDICAID OF TOMBLINUNK [place] OHIOPolicy Number: Repository [id number] Date:[address] [address]DH: 08/16/2018 GELY [facility] GELY [facility] [id number] HIGH Insurance:MEDICAREPol TOMBLINUNK [place] icy Number: Repository [address]Kaz: 330 [id number] [phone] (HP) Date:[address]NUUJ CODE WJ922ANHOZORX, [place] [address]QV: 08/16/2018 Secondary [facility] Insurance:MEDICAID OF TOMBLINUNK [place] OHIOPolicy Number: Repository [id number] Date:[address] [address]IV: 08/08/2018 [facility] [id number] HIGH Insurance:MEDICAREPol TOMBLINUNK [place] icy Number: Repository [address]Ksz: 330 [id number] [phone] (HP) Date:[address]OJII CODE SO403SHSWWSNN, [place] [address]LS: 08/08/2018 Secondary GELY Piña Medical Insurance:MEDICAID OF TOMBLINUNK [place] OHIOPolicy Number: Repository [id number] Date:[address], [place] [address]MK: 06/11/2018 GELY Cabrera Primary GELY L [place] [id number] HIGH Insurance:MEDICARE TOMBLINDOB: [place] PART A olic [id number] Hospital [id number]: (330) Number: Repository [phone] (HP) [id number] Date:2018-06-11 06/11/2018 Secondary GELY L Kiet Insurance:MEDICAIDPol TOMBLINDOB: [facility] Number: [id number] [facility] [id number] Repository Date:2018-06-11 06/11/2018 Tertiary NOT GIVENUNK [place] Insurance:SELF PAY [facility] Number: Effective Repository Date:2018-06-11 06/05/2018 GELY Primary GELY Piña Medical [id number] HIGH Insurance:MEDICAREPol [place] Number: Repository [id number]: 330 [id number] [phone] (HP) Date:[address]XTSM CODE LZ560DKSOIUFK, [place] [address]LE: 06/05/2018 Secondary GELY Piña Medical Insurance:MEDICAID OF [place] [facility] [place] Number: Repository [id number] Date:[address] [address]AU: 06/04/2018 GELY Primary GELY Piña Medical [id number] HIGH Insurance:MEDICAREPol [place] Number: Repository [id number]: 330 [id number] [phone] (HP) Date:[address]NLK CODE OF759EDDPVIRL, [place] [address]VX: 06/04/2018 Secondary GELY Piña Medical Insurance[place] [facility] [place]: Repository [id number] Date:[address] [address]XC: 05/15/2018 GELY Primary GELY Piña Medical [id number] HIGH Insurance:MEDICAREPol [place] icy Number: Repository [id number]: 330 [id number] [phone] (HP) Date:[address] CODE [id number], [place] [address]UD: 05/15/2018 Secondary GELY Piña Medical Insurance[place] [facility] [place]: Repository [id number] Date:[address], [place] [address]TI: 05/08/2018 GELY L Primary GELY L [place] [id number] HIGH Insurance:MEDICARE TOM[place]OB: [place]olic [id number] Hospital 37897Pwz: (330) Number: Repository [phone] () [id number] Date:2018-05-08 05/08/2018 Secondary GELY L [place] Insurance:MEDICAIDPol TOMBLINDOB: [facility] icy Number: [id number] Hospital [id number] Repository Date:2018-05-08 05/08/2018 Tertiary NOT GIVENUNK [place] Insurance:SELF PAY [facility] Number: Effective Repository Date:2018-05-08 05/02/2018 GELY Primary GELY Piña Medical [id number] HIGH Insurance:MEDICAREPol [place]K [place] icy Number: Repository [id number]: 330 [id number] [phone] (HP) Date:[address]VVF CODE ER135LOPFQPZY, [place] [address]IZ: 05/02/2018 Secondary GELY Piña Medical Insurance[place] [facility] [place]: Repository [id number] Date:[address] [address]MK: 05/01/2018 GELY Primary GELY Piña Medical [id number] HIGH Insurance:MEDICAREPol [place] icy Number: Repository [id number]: 330 [id number] [phone] (HP) Date:[address] CODE PX078FKHHDAOJ, [place] [address]EL: 05/01/2018 Secondary GELY Piña Medical Insurance:MEDICAID OF [place] [facility] [place] Number: Repository [id number] Date:[address] [address]ED: 04/02/2018 GELY Primary GELY Piña Medical [id number] HIGH Insurance:MEDICAREPol [place] icy Number: Repository [id number]: 330 [id number] [phone] (HP) Date:[address]JFYE CODE HJ736WJTIHSOG, [place] [address]GX: 04/02/2018 Secondary GELY Piña Medical Insurance:MEDICAID OF [place] [facility] [place] Number: Repository [id number] Date:[address] [address]VU: 03/20/2018 GELY L Primary GELY L [place] [id number] HIGH Insurance:MEDICARE [place]OB: [place] BPolicy [id number] Hospital [address]Kiv: (330) Number: Repository [phone] () [id number] Date:2018-03-20 03/20/2018 Secondary GELY L [place] Insurance:MEDICAIDPol TOMBLINDOB: [facility] icy Number: [id number] Hospital [id number] Repository Date:2018-03-20 03/20/2018 Tertiary NOT GIVENUNK [place] Insurance:SELF PAY [facility] Number: Effective Repository Date:2018-03-20 03/05/2018 GELY Cabrera Primary GELY Cabrera [place] [id number] HIGH Insurance:MEDICARE [place]OB: [place] [facility] [id number] Hospital 079[address]Ppu: (330) Number: Repository [phone] () [id number] Date:2018-03-05 03/05/2018 Secondary GELY L [place] Insurance:MEDICAIDPol TOMBLINDOB: [facility] icy Number: [id number] Hospital [id number] Repository Date:2018-03-05 03/05/2018 Tertiary NOT GIVENUNK [place] Insurance:SELF PAY [facility] Number: Effective Repository Date:2018-03-05 03/05/2018 GELY L Primary GELY L [place] [id number] HIGH Insurance:MEDICARE [place]: [place] [facility] [id number] Hospital 080[address]Yae: (330) Number: Repository [phone] () [id number] Date:2018-03-05 03/05/2018 Secondary GELY L [place] Insurance:MEDICAIDPol TOMBLINDOB: [facility] icy Number: [id number] Hospital [id number] Repository Date:2018-03-05 03/05/2018 Tertiary NOT GIVENUNK [place] Insurance:SELF PAY [facility] Number: Effective Repository Date:2018-03-05 03/05/2018 GELY L Primary GELY L [place] [id number] HIGH Insurance:MEDICARE [place]OB: [place] [facility] [id number] Hospital 20154Piq: (330) Number: Repository [phone] () [id number] Date:2018-03-05 03/05/2018 Secondary GELY L [place] Insurance:MEDICAIDPol TOMBLINDOB: [facility] icy Number: [id number] Hospital [id number] Repository Date:2018-03-05 03/05/2018 Tertiary NOT GIVENUNK [place] Insurance:SELF PAY [facility] Effective Rep[facility] Date:2018-03-05 01/29/2018 GELY Cabrera Primary GELY Duenasoster [id number] HIGH Insurance:MEDICARE [place]OB: [place] [facility] [id number] Hospital 27732Svw: (330) Number: Repository [phone] () [id number] Date:2018-01-29 01/29/2018 Secondary GELY L [place] Insurance:MEDICAIDPol TOMBLINDOB: Community icy Number: [id number] Hospital [id number] Repository Date:2018-01-29 01/29/2018 Tertiary NOT GIVENUNK [place] Insurance:SELF PAY [facility] Number: Effective Repository Date:2018-01-29 01/29/2018 GELY Cabrera Primary GELY L [place] [id number] HIGH Insurance:MEDICARE [place]OB: [place] [facility] [id number] Hospital 79757Tme: (330) Number: Repository [phone] () [id number] Date:2018-01-29 01/29/2018 Secondary GELY L [place] Insurance:MEDICAIDPol TOM[place]INDOB: [facility] icy Number: [id number] Hospital [id number] Repository Date:2018-01-29 01/29/2018 Tertiary NOT GIVENUNK [place] Insurance:SELF PAY [facility] Number: Effective Repository Date:2018-01-29 01/29/2018 GELY L Primary GELY L [place] [id number] HIGH Insurance:MEDICARE [place]: [place] [facility] [id number] Hospital 25878Wer: (330) Number: Repository [phone] () [id number] Date:2018-01-29 01/29/2018 Secondary GELY L [place] Insurance:MEDICAIDPol TOMBLINDOB: [facility] icy Number: [id number] Hospital [id number] Repository Date:2018-01-29 01/29/2018 Tertiary NOT GIVENUNK [place] Insurance:SELF PAY [facility] Number: Effective Repository Date:2018-01-29 01/29/2018 GELY Cabrera Primary GELY [place] [id number] HIGH Insurance:MEDICARE [place]OB: [place] olic [id number] Hospital 15166Emm: (330) Number: Repository [phone] () [id number] Date:2018-01-29 01/29/2018 Secondary GELY L [place] Insurance:MEDICAIDPol TOMBLINDOB: [facility] icy Number: [id number] Hospital [id number] Repository Date:2018-01-29 01/29/2018 Tertiary NOT GIVENUNK [place] Insurance:SELF PAY [facility] Number: Effective Repository Date:2018-01-29 01/19/2018 GELY Cabrera Primary GELY [place] [id number] HIGH Insurance:MEDICARE [place]OB: [place] [facility] [id number] Hospital 72220Sdk: (330) Number: Repository [phone] () [id number] Date:2018-01-16 01/19/2018 Secondary GELY Cabrera [place] Insurance:MEDICAIDPol TOMBLINDOB: [facility] icy Number: [id number] Hospital [id number] Repository Date:2018-01-16 01/19/2018 Tertiary NOT GIVENUNK [place] Insurance:SELF PAY [facility] Number: Effective Repository Date:2018-01-16 12/13/2017 GELY Cabrera Primary GELY Santa [id number] HIGH Insurance:MEDICARE [place]: [place] [facility] [id number] Hospital 54569Uqj: (330) Number: Repository [phone] () [id number] Date:2017-12-06 12/13/2017 Secondary GELY L [place] Insurance:MEDICAIDPol TOMBLINDOB: [facility] icy Number: [id number] Hospital [id number] Repository Date:2017-12-06 12/13/2017 Tertiary NOT GIVENUNK [place] Insurance:SELF PAY [facility] Number: Effective Repository Date:2017-12-06 12/12/2017 GELY Cabrera Primary GELY Cabrera [place] [id number] HIGH Insurance:MEDICARE [place]: [place] [facility] [id number] Hospital 655[address]Rcp: (330) Number: Repository [phone] () [id number] Date:2017-12-07 12/12/2017 Secondary GELY L [place] Insurance:MEDICAIDPol TOMBLINDOB: [facility] icy Number: [id number] Hospital [id number] Repository Date:2017-12-07 12/12/2017 Tertiary NOT GIVENUNK [place] Insurance:SELF PAY [facility] Number: Effective Repository Date:2017-12-07 11/23/2017 GELY Cabrera Primary GELY Cabrera [place] [id number] HIGH Insurance:MEDICARE [place]: [place] [facility] [id number] Hospital 07471Isn: (330) Number: Repository [phone] () [id number] Date:2017-11-21 11/23/2017 Secondary GELY L [place] Insurance:MEDICAIDPol TOMBLINDOB: [facility] icy Number: [id number] Hospital [id number] Repository Date:2017-11-21 11/23/2017 Tertiary NOT GIVENUNK [place] Insurance:SELF PAY [facility] Number: Effective Repository Date:2017-11-21 11/21/2017 GELY Cabrera Primary GELY Cabrera [place] [id number] HIGH Insurance:MEDICARE [place]OB: [place] [facility] [id number] Hospital 49052Lyy: (330) Number: Repository [phone] () [id number] Date:2017-11-21 11/21/2017 Secondary GELY L [place] Insurance:MEDICAIDPol TOMBLINDOB: [facility] icy Number: [id number] Hospital [id number] Repository Date:2017-11-21 11/21/2017 Tertiary NOT GIVENUNK [place] Insurance:SELF PAY [facility] Number: Effective Repository Date:2017-11-21 11/07/2017 GELY Cabrera Primary GELY [place] [id number] HIGH Insurance:MEDICARE [place]OB: [place]olic [id number] Hospital 21624Rcz: (330) Number: Repository [phone] () [id number] Date:2017-09-16 11/07/2017 Secondary GELY [place] Insurance:MEDICAIDPol TOMBLINDOB: [facility] Number: [id number] Hospital [id number] Repository Date:2017-09-16 11/07/2017 Tertiary NOT GIVENUNK [place] Insurance:SELF PAY [facility] Number: Effective Repository Date:2017-09-16
== END ==
PROVIDERS: Family Provider Family Medicine; PCP Family Medicine; Visit Provider Family Medicine
DX: N30.90 Cystitis, unspecified without hematuria (principal)
CPT/HCPCS: 81001; 87086; 87088; 87661

== ENCOUNTER 2018-10-18 06:32 | Day surgery (SDC) | payer MEDICARE, MEDICAID, SELFPAY ==
[2018-08-29 09:02] VITALS: BMI 37.3
--- NOTE | 2018-10-17 17:08 | HP.PCM_ITS ---
History and Physical Date of Admission: 10/18/18 HISTORY OF PRESENT ILLNESS 48 year old woman presents with a soft tissue mass left cheek that had increased in size over the last several months. She noticed some redness around the soft tissue mass. There was spontaneous drainage of this mass in June. She denies any trauma. She denies any bleeding. She denies any fever. She is not on antibiotics at the present time. She has not had any I&D procedures. While here she also had complaints about her bilateral macromastia and associated painful symptomatology of neck pain, thoracic back pain, bilateral shoulder pain from shoulder grooving from the weight of her breasts on her bra straps, and inframammary intertrigo for which she uses powders for relief. She states she has had PT in the past with no relief in her breast symptomatology. She is due for her mammogram in November,. She presents today for further evaluation and treatment. PAST MEDICAL HISTORY Arthritis Asthma Back problem Diabetes GERD (gastroesophageal reflux disease) Gastric paresis IBS (irritable bowel syndrome) Kidney stones Migraines Multiple allergies Sleep apnea in adult Thyroid disease COPD (chronic obstructive pulmonary disease) Chronic pain PAST SURGICAL HISTORY Carpal tunnel syndrome surgery Cervical cancer surgery Previous section gallbladder removal ALLERGIES codeine nabumetone [From Relafen] Sulfa (Sulfonamide Antibiotics) pregabalin [From Lyrica] albuterol MEDICATIONS Aspirin E.C. [Ecotrin] Atorvastatin Calcium [Lipitor] Cetirizine HCl [All Day Allergy] Cholecalciferol (Vitamin D3) [Vitamin D3] Duloxetine Febuxostat [Uloric] Fentanyl 25mcg Fluticasone/Vilanterol [Breo Ellipta 200-25 Mcg INH] Furosemide [Lasix] Irbesartan [Avapro] Levothyroxine [Synthroid] Lidocaine [Lidoderm Patch] Metformin HCl [Glucophage] Montelukast Sodium [Singulair] Omeprazole [Prilosec] Potassium Citrate [Potassium Citrate ER] Sodium Chloride [Saline Nasal [place]] FAMILY HISTORY Mother - Cervical cancer Grandmother - Arthritis, Diabetes Grandfather , Bleeding disorder, Bowel disease, Heart disease Aunt - Throat cancer Father - Diabetes SOCIAL HISTORY Smoking Status: Current every day smoker alcohol intake: never substance use type: does not use REVIEW OF SYSTEMS General - Denies fever, fatigue, and weight loss. Eyes - Denies cataracts and glaucoma. ENT - Denies nasal congestion and sore throat. Endocrine - Denies excessive thirst and urination. Has thyroid disease. Skin - Denies skin cancer. Has infected cystic lesion left cheek. Has inframammary intertrigo for which she uses powders for relief. Musculoskeletal - Denies joint pain, joint stiffness, weakness of muscles and joints, and arthritis. Has neck pain and thoracic back pain. Has bilateral shoulder pain from shoulder grooving from the weight of her breasts on her bra straps. Neuro - Has headaches. Cardiovascular - Denies chest pain, fatigue, and shortness of breath with exertion. Psych - Denies anxiety. Has depression. Respiratory - Denies chronic cough. Has shortness of breath. Has asthma. Patient is a smoker. Gastrointestinal - Denies nausea, vomiting, and constipation. Has some diarrhea. Hematologic - Denies abnormal bruising and bleeding. Genitourinary - Denies hematuria and urinary frequency. PHYSICAL EXAMINATION General - Alert and Oriented. Bra size is 44 D. HEENT - PERRL. EOMI. Throat is clear. On the left cheek is a soft tissue mass. Measures 7 mm. It is nodular and mobile. Mild redness seen around the mass. No fluctuance. No purulent drainage. Neck - Supple and nontender. No cervical adenopathy. No bony tenderness. Has pericervical soft tissue tenderness. Breasts - Bilateral macromastia with the left breast larger than the right breast. No breast masses palpable. No axillary adenopathy. Distance from midclavicular line on the left to the nipple is 34 cm and from the nipple to the inframammary fold is 10 cm. Distance from midclavicular line on the right to the nipple is 33 cm and from the nipple to the inframammary fold is 9 cm. The nipple areolar complex diameter is 8 cm bilaterally. Lungs - Clear to auscultation. Heart - Regular rate and rhythm. Abdomen - Soft and nondistended. Extremities - FROM. No axillary adenopathy. Radial pulses are palpable. Has bilateral shoulder tenderness from shoulder grooving from the weight of her breasts on her bra straps. Back - No bony tenderness. There is perivertebral soft tissue tenderness kahlil ecially in the thoracic area. Neuro - CN II-XII grossly intact. Psych - Normal mood and affect. ASSESSMENT 1. 7 mm chronically infected soft tissue mass left cheek. 2. Bilateral macromastia. 3. Neck pain. 4. Thoracic back pain. 5. Bilateral shoulder pain from shoulder grooving from the weight of the breasts on the bra straps. 6. Inframammary intertrigo. 7. Smoker. PLAN Recommend excision of this chronically infected soft tissue mass left cheek. Will send the lesion to Pathology for analysis to rule out carcinoma. If evidence of infection persistent, will also send a culture as well. Depending on how much of the skin needs to be excised will determine if a local skin flap is needed. Surgery will be done on an outpatient basis under local anesthesia and IV sedation. Patient was informed of the risks and complications of the procedure including alternatives to surgery. These were discussed with the patient personally. Pankaj alegre voices understanding and wishes to proceed. Some of the risks and complications were included in a form from the [employer]. Encouraged patient to stop smoking as it may have deleterious effects on wound healing. After healing has occurred, the patient is interested in a breast reduction mammaplasty. With her large size and associated painful symptomatology, she would benefit from this surgery. Since she has Medicare, no precert can be done. Medicare would decide after the surgery if it were medically necessary. Therefore the patient would have to sign a Medicare waiver prior to the surgery. She will also need a mammogram preop. She is due for her next mammogram in November,. I would remove about 500 grams of breast tissue per side, with more being taken from the left breast. Discussed the extent of the scarring. She would have drains in for a few days. Tissue that is removed will be sent to Pathology for analysis to rule out carcinoma. Will discuss further after her left cheek surgery has healed. Tentatively, will proceed with the breast reduction surgery in the Spring after her mammogram. Her last recorded HgbA1c was 8.3. Since the breast reduction surgery is elective, the HgbA1c has to be less than 8 in order to proceed. She states she will followup with her PCP to work on lowering her HgbA1c.
[2018-10-18] VITALS (8 sets, daily range): BP systolic 86–113; BP diastolic 52–68; PULSE 85–94; RESP 16–18; TEMP 36.2–37.1; O2SAT 92–94; BMI 37.0
--- NOTE | 2018-10-18 | IMM_PTH ---
PATIENT: GELY LACKEY [place]: [facility] [place] U[place][id number] AGE/SX: 48/F ROOM: RE10/18/[address]: Dr. Parth Watkins MD : 1970 BED: DIS: 10/18/2018 SPEC #: [id number] RECD: 10/22/18 10:07 STATUS: DANA REQ #: [id number] ALFREDO: 10/18/18 00:[address]: Parth Watkins DEPT: IMMUNOHISTOCHEMISTRY RECD BY: Georgina Salinas ENTERED: 10/22/18 10:08 SP TYPE: IMMUNO OTHR DR: Dr. Aron Palumbo MD Tissues: Cheek, NOS Procedures: Ora-1 (initial) MACRO (add) Vimentin (add) S-100 (add) PHYSICIAN & INSTITUTION [place] [id number] SPECIMEN INFORMATION: Tissue Source: Chronically infected soft tissue mass, left cheek Clinical Info: Chronically infected soft tissue mass, left cheek Specimen Number: [id number] CPT code: 66889, 01054 x3 METHODOLOGY: Deparaffinized sections of prefer/formalin-fixed tissue or PAP/DQ stained slides are incubated with monoclonal/polyclonal antibodies/oligonucleotide probes. Localization is made via biotin free immunoperoxidase method. Appropriate controls are performed and reacted as expected. Results on target cell population are indicated in the following table: RESULTS: ANTIBODY / CLONE RESULT S-100 (4C4.9) negative MART-1 (A-103) negative Vimentin (V9) positive Macro (HAM-56) positive These tests were developed and their performance characteristics determined by [facility]. They may not have been cleared or approved by the U.S. Food and Drug Administration. The FDA has determined that such clearance or approval is not necessary. INTERPRETATION: Chronically infected soft tissue mass, left cheek, excision: No evidence of malignancy. AM:delaney 10/22/18
--- NOTE | 2018-10-18 | MASS_PTH ---
PATIENT: GELY LACKEY [place] [facility] [place][id number] AGE/SX: 48/F ROOM: RE10/18/[address]: Dr. Parth Watkins MD : 1970 BED: DIS: 10/18/2018 SPEC #: [id number] RECD: 10/18/18 14:45 STATUS: DANA REPierce #: [id number] ALFREDO: 10/18/18 00:[address]: Parth Watkins DEPT: SURGICAL PATHOLOGY RECD BY: Josep Kan ENTERED: 10/18/18 14:45 SP TYPE: Mass OTHR DR: Dr. Aron Palumbo MD Tissues: Cheek, NOS Procedures: Surgery Specimen Level IV HEADER OPERATION: Excision infected cystic lesion left cheek PRE-OP DIAGNOSIS: Chronically infected soft tissue mass, left cheek TISSUE SUBMITTED: Chronically infected soft tissue mass, left cheek, suture at 12 o'clock MICROSCOPIC DIAGNOSIS Left cheek lesion, excisional biopsy: Focal mild chronic folliculitis. Dermal fibrosis, mild chronic inflammation and melanophages. Negative for malignancy. CRHIST:delaney 10/19/18 COMMENT Immunohistochemistry ([id number]) supports the above diagnosis. Case has been reviewed in consultation with Dr. Villeda who concurs with the above diagnosis. IDC:SJ MICROSCOPIC DESCRIPTION Slides are reviewed. GROSS DESCRIPTION Received in fixative is one container labeled with the patient's name and designated chronically infected soft tissue mass left cheek. The specimen consists of a gomez-white skin ellipse measuring 0.7 x 0.2 cm and up to 0.3 cm in thickness. The specimen is oriented by a suture at 12 o'clock. The 12 o'clock margin is inked black and 6 o'clock margin is inked blue. The entire specimen is submitted in one cassette. It will be bisected at the time of embedding. / CHRIST:delaney 10/18/18 TC:5 CPT: 53300
[2018-10-18 07:21] LABS: Bedside Glucose 239 mg/dL (70-110)
--- NOTE | 2018-10-18 08:33 | OP.PN_ITS ---
Immediate Post-Op Note Date of Procedure: 10/18/18 Primary Surgeon/Physician: Parth Watkins MD laser print operator: None Pre-Operative Diagnosis: 1. 7 mm chronically infected soft tissue mass left cheek. 2. Smoker. Post-Operative Diagnosis: Same. Surgery/Procedure Performed:: Excision 7 mm chronically infected soft tissue mass left cheek with 1.5 cm layered closure. Description of Surgical Findings:: 48 year old woman presents with a soft tissue mass left cheek that had increased in size over the last several months. She noticed some redness around the soft tissue mass. There was spontaneous drainage of this mass in June. She denies any trauma. She denies any bleeding. She denies any fever. She is not on antibiotics at the present time. She has not had any I&D procedures. Today the patient underwent excision 7 mm chronically infected soft tissue mass left cheek with 1.5 cm layered closure. Estimated Blood Loss: 1 ml. Specimen's removed: Chronically infected soft tissue mass left cheek to Pathology. Drains: None. Type of Anesthesia:: Local MAC - xylocaine with epinephrine. - Admit VTE Documentation VTE Present on Admission: No VTE Mechan Device Prophylaxis: SCD's VTE Pharm Prophylaxis ordered?: No
[2018-10-18] MEDS: Mupirocin Ointment 22gm Tube 1 APPLIC (08:35)
--- NOTE | 2018-10-18 08:43 | DCINST_ITS ---
You will use the following diet at home:: No restrictions Discharge Activity: May not drive while taking narcotic pain medications., May Shower - in two days. May shower in (days): 2 May resume sexual activity in: No Restrictions Ice area for (Minutes): 5 - as needed for facial swelling. Weight Bearing Status: Weight bearing as tolerated Lifting Restrictions: 20 lbs. Keep extremity elevated above heart level: - - elevate head. Call your doctor if your incision/area has: Continuous Slow Oozing, Sudden Increased Bleeding, Increased Pain/ Swelling, Increased Redness, Foul Smelling Discharge, Swelling at the incision site Call your doctor if you observe: Fever of 101 or Higher, Coldness, Increased Pain, Shortness of breath, Chest pain, Calf discomfort, Uncontrolled pain Suture Line Care: - - apply antibiotic ointment to suture line dailiy. Cleanse incision/area with: - - may get incision wet in the shower in two days. Allergies/Adverse Reactions: Allergies codeine Allergy (Verified 10/11/18 13:08) Rash nabumetone [From Relafen] Allergy (Verified 10/11/18 13:08) Rash Sulfa (Sulfonamide Antibiotics) Allergy (Verified 10/11/18 13:08) Rash pregabalin [From Lyrica] Adverse Reaction (Verified 10/11/18 13:08) confusion/delirium CONFUSION/DELIRIUM albuterol Adverse Reaction (Uncoded 10/11/18 13:08) Laryngospasms Medications to take at Discharge Atorvastatin Calcium [Lipitor] 40 mg PO QHS 03/05/18 Cetirizine HCl [All Day Allergy] 10 mg PO DAILY 03/05/18 Cholecalciferol (Vitamin D3) [Vitamin D3] 5,000 unit PO DAILY 03/05/18 Duloxetine HCl 60 mg PO DAILY 03/05/18 Febuxostat [Uloric] 80 mg PO DAILY 03/05/18 Fluticasone/Vilanterol [Breo Ellipta 200-25 Mcg INH] 1 puff IH DAILY 03/05/18 Furosemide [Lasix] 20 mg PO DAILY 03/05/18 Irbesartan [Avapro] 75 mg PO QHS 03/05/18 Levothyroxine [Synthroid] 100 mcg PO DAILY 03/05/18 Lidocaine [Lidoderm Patch] 1 patch TOPICAL DAILY 05/21/18 Metformin HCl [Glucophage] 1,000 mg PO BIDCM 03/05/18 Montelukast Sodium [Singulair] 10 mg PO DAILY 03/05/18 Omeprazole [Prilosec] 40 mg PO DAILY 03/05/18 Potassium Citrate [Potassium Citrate ER] 15 meq PO DAILY 03/05/18 Sodium Chloride [Saline Nasal [place]] 1 spray NS Q2H PRN 03/05/18 Buprenorphine 20 Mcg/Hr [Butrans 20 Mcg/Hr] 20 mcg TRANSDERM. SA 10/11/18 Gabapentin [Gralise] 600 mg PO TID 10/11/18 Clindamycin HCl [Cleocin HCl] 300 mg PO TID #15 cap 10/18/18 Oxycodone HCl/Acetaminophen [Percocet 5/325] 1 tab PO 4X/DAY PRN PRN 5 Days #20 tab 10/18/18 The following prescriptions were given: Oxycodone HCl/Acetaminophen [Percocet 5/325] 1 tab PO 4X/DAY PRN PRN 5 Days #20 tab PRN Reason: Pain Clindamycin HCl [Cleocin HCl] 300 mg PO TID #15 cap Primary Care Physician: Aron Palumbo MD [Primary Care Provider] - Test Results: Test results from this visit will be discussed in further detail at your follow- up appointment, if applicable. Please Follow Up With: Parth Watkins MD When: one week. call [phone] for appt. Proposed Discharge Date: 10/18/18
--- NOTE | 2018-10-18 19:55 | PCM.OPRPT ---
Report of Operation Date of Procedure: 10/18/18 Pre-Operative Diagnosis: 1. 7 mm chronically infected soft tissue mass left cheek. 2. Smoker. Post-Operative Diagnosis: Same. Surgery/Procedure Performed:: Excision 7 mm chronically infected soft tissue mass left cheek with 1.5 cm layered closure. Description of Surgical Findings:: 48 year old woman presents with a soft tissue mass left cheek that had increased in size over the last several months. She noticed some redness around the soft tissue mass. There was spontaneous drainage of this mass in June. She denies any trauma. She denies any bleeding. She denies any fever. She is not on antibiotics at the present time. She has not had any I&D procedures. Patient was informed of the risks and complications of the procedure including alternatives to surgery. These were discussed with the patient personally. Patient voices understanding and wishes to proceed. Some of the risks and complications were included in a form from the [employer]. Encouraged patient to stop smoking as it may have deleterious effects on wound healing. hedis registered nurse rn: None Type of Anesthesia:: Local MAC - xylocaine with epinephrine. Specimen's removed: Chronically infected soft tissue mass left cheek to Pathology. Drains: None. Estimated Blood Loss (mL): 1 ml. Description of Procedure: Patient was taken to OR in supine position and was given IV sedation. The left cheek was prepped and draped in the usual fashion. SCD's were placed for DVT prophylaxis. Perioperative antibiotics were given intravenously. The left cheek lesion was infiltrated with xylocaine and epinephrine. After waiting 5 minutes for the anesthetic to take effect, The lesion was excised in an oblique elliptical fashion down into the subcutaneous tissue. A suture was marked at 12 oclock position for pathology orientation. The lesion was sent to Pathology for analysis to rule out carcinoma. A fair amount of scar tissue was present indicative of the chronicity of the disease process. No pus was seen. The soft tissue mass was adherent to the skin which also needed to be excised to minimize recurrence. The lesion was excised with a 1 mm margin in all directions thus making it a 9 mm excision with a 1.5 cm layered closure. Hemostasis was obtained with electrocautery. The wound was closed in a layered fashion with 5-0 Monocryl interrupted sutures for the deep dermis and subcutaneous tissue. The skin was approximated with 6-0 Prolene simple interrupted sutures. Steri-Strips were applied followed by antibiotic ointment. Patient tolerated the procedure well and was sent to PACU in satisfactory condition. Patient will be sent home on antibiotics and pain medication. Patient will keep her head elevated during the initial postoperative period. Patient will followup in a week for a wound check and for discussion of the pathology report and for removal of the sutures. Grafts/Implants Used: None. - Complications None. - Admit VTE Documentation VTE Present on Admission: No VTE Mechan Device Prophylaxis: SCD's VTE Pharm Prophylaxis ordered?: No Code Visit Surgery Charges CPT - 76910 ICD-10 - R22.0, F17.200 83432 R22.0, F17.200
== END 2018-10-18 09:30 | disposition home or self-care (01) ==
LOC: SDC 06:33 → AC 06:34
PROVIDERS: Family Provider Family Medicine; PCP Family Medicine; Referring Provider Surgery; Visit Provider Surgery
PROC: (CPT 11441; principal; 2018-10-18 07:50)
DX: R22.0 Localized swelling, mass and lump, head (principal); L73.9 Follicular disorder, unspecified; F17.200 Nicotine dependence, unspecified, uncomplicated; K58.9 Irritable bowel syndrome, unspecified; K21.9 Gastro-esophageal reflux disease without esophagitis; E11.9 Type 2 diabetes mellitus without complications; G47.30 Sleep apnea, unspecified; J44.9 Chronic obstructive pulmonary disease, unspecified; M19.90 Unspecified osteoarthritis, unspecified site; G89.29 Other chronic pain; E07.9 Disorder of thyroid, unspecified; Z79.899 Other long term (current) drug therapy; Z79.84 Long term (current) use of oral hypoglycemic drugs; Z79.82 Long term (current) use of aspirin; N62 Hypertrophy of breast; L30.4 Erythema intertrigo
CPT/HCPCS: 11441; 12051; 82962; 88305; 88341; 88342; J7120

== ENCOUNTER → 2018-12-20 12:18 | Outpatient (CLI) | payer MEDICARE, MEDICAID, SELFPAY ==
[2018-10-24 15:14] VITALS: BMI 37.0
[2018-12-20 16:00] LABS: Hemoglobin A1c 7.4 % (4.2-6.3)
[2018-12-20 16:10] LABS: ALB/GLOB Ratio 1.1 RATIO (0.9-2.4); AST(SGOT) 33 U/L (15-37); Alanine Aminotransfer ALT/SGPT 32 U/L (13-56); Albumin, Serum 3.8 g/dL (3.2-5.0); Alkaline Phosphatase 101 U/L (45-117); Anion Gap 12 (5-15); BUN 14 mg/dL (7-18); BUN/Creat Ratio 13.9 RATIO (10-20); Calcium,Total 8.8 mg/dL (8.5-10.1); Chloride 109 mmol/L (98-107); Creatinine, Serum 1.01 mg/dL (0.55-1.02); EST Glomerular Filtration Rate 62 mL/min (>60); Est Glom Filt Rate - Afr Amer 75 mL/min (>60); Globulin 3.4 g/dL (2.2-4.2); Glucose 178 mg/dL (74-106); Potassium 4.3 mmol/L (3.5-5.1); Protein, Total 7.2 g/dL (6.4-8.2); Sodium Level 140 mmol/L (136-145); T4 Free Direct 1.19 ng/dL (0.76-1.46); Thyroid Stim Hormone (TSH) 2.29 uIU/mL (0.358-3.74)
[2018-12-20 16:15] LABS: Microalbumin,Random Urine 31.7 mg/L (NO RANGE EST.); Microalbumin:Creatinine Ratio 13.3 mg/g CRE (<30 mg/g CRE)
== END ==
PROVIDERS: Family Provider Family Medicine; PCP Family Medicine; Referring Provider Family Medicine; Visit Provider Family Medicine
DX: E11.40 Type 2 diabetes mellitus with diabetic neuropathy, unspecified (principal); E03.9 Hypothyroidism, unspecified
CPT/HCPCS: 36415; 80053; 82043; 82570; 83036; 84439; 84443; 84481

== ENCOUNTER → 2019-03-02 | Outpatient (CLI) | payer MEDICARE, MEDICAID, SELFPAY ==
[2019-02-12 11:01] VITALS: BMI 37.0
--- NOTE | 2019-03-02 07:54 | BI_ITS ---
MAMMOGRAPHY - BILATERAL SCREENING REASON FOR EXAM: Female, 48 years old. Routine annual screening examination. PERTINENT HISTORY: Non-contributory. TECHNIQUE: Digital bilateral breast milagros (3D mammographic acquisition) in the CC and MLO projections. 2-D mediolateral oblique (MLO) and craniocaudad (CC) views of both breasts were obtained. CAD: Full Field Digital Mammography with Computer Added Detection was performed. COMPARISON: Comparison is made with prior examination dated December 26, 2016 and November 23, 2015. FINDINGS: Breast Composition: The breasts are almost entirely fatty. There are no dominant masses or suspicious calcifications. Stable small bilateral axillary lymph nodes. No other significant abnormalities are identified. There has been no significant change since the prior study. BI/SCREENING MAMM (CAD), BILAT IMPRESSION: Stable bilateral screening mammogram. Yearly follow-up mammogram recommended. (A) ASSESSMENT CATEGORY: BIRADS Category 1: Negative. A letter regarding these results will be sent to the patient by the facility within 30 days. Approximately 10% of breast cancers are not detected by mammography. A normal mammogram should not delay biopsy of a clinically suspicious abnormality. [id number] Electronically Signed: Rfuus Pike, at 8:35 EDT , Service support ,
== END | disposition home or self-care (01) ==
PROVIDERS: Family Provider Family Medicine; PCP Family Medicine; Referring Provider Family Medicine; Visit Provider Family Medicine
DX: Z12.31 Encounter for screening mammogram for malignant neoplasm of breast (principal)
CPT/HCPCS: 77063; 77067

== ENCOUNTER → 2019-03-22 | Outpatient (CLI) | payer MEDICARE, MEDICAID, SELFPAY ==
[2019-02-12 11:01] VITALS: BMI 37.0
== END | disposition home or self-care (01) ==
LOC: MTLAB 15:13
PROVIDERS: Family Provider Family Medicine; PCP Family Medicine; Referring Provider Family Medicine; Visit Provider Family Medicine
DX: N30.01 Acute cystitis with hematuria (principal)
CPT/HCPCS: 87086; 87088

== ENCOUNTER → 2019-04-23 | Outpatient (CLI) | payer MEDICARE, MEDICAID, SELFPAY ==
[2019-04-17 15:11] VITALS: BMI 37.0
== END | disposition home or self-care (01) ==
LOC: LABSPEC 11:10
PROVIDERS: Family Provider Family Medicine; PCP Family Medicine; Referring Provider Family Medicine; Visit Provider Family Medicine
DX: N39.0 Urinary tract infection, site not specified (principal)
CPT/HCPCS: 87086

== ENCOUNTER 2019-04-26 10:36 | Inpatient (IN) | payer MEDICARE, MEDICAID, SELFPAY ==
[2019-02-12 11:01] VITALS: BMI 37.0
[2019-04-17 15:11] VITALS: BMI 37.0
--- NOTE | 2019-04-24 11:08 | EKG12_ITS ---
Test Reason : PREOP Blood Pressure : / mmHG Vent. Rate : 085 BPM Atrial Rate : 085 BPM P-R Int : 130 ms QRS Dur : 082 ms QT Int : 374 ms P-R-T Axes : 038 032 051 degrees QTc Int : 445 ms Normal sinus rhythm Low voltage QRS Borderline ECG Confirmed by HANS LATIF ([id number]), book editor DARLENE ARAGON ([id number]) on 04/25/2019 1:38:40 PM Referred By: Parth Watkins Confirmed By:HANS LATIF
[2019-04-24 11:30] LABS: Hematocrit 45.2 % (37-47); Hemoglobin 15.4 g/dl (12.0-15.0); Mean Corp Hgb Conc 34.1 g/gl (32-36); Mean Corpuscular Volume 88.1 fL (81-99); Mean Platelet Vol. 9.8 fl (6.2-12.0); Platelet Count 369 K/mm3 (150-450); RBC Distribution Width CV 13.2 % (11.6-14.6); RBC Distribution Width SD 42.6 fl (35.1-43.9); Red Blood Count 5.13 M/mm3 (4.2-5.4); White Blood Count 13.4 K/mm3 (4.4-11.0)
[2019-04-24 11:31] LABS: Scan Indicated on CBC? Y/N NO
[2019-04-24 11:58] LABS: Hemoglobin A1c 6.4 % (4.2-6.3)
[2019-04-24 12:03] LABS: Anion Gap 9 (5-15); BUN 13 mg/dL (7-18); BUN/Creat Ratio 12.4 RATIO (10-20); Calcium,Total 9.4 mg/dL (8.5-10.1); Chloride 109 mmol/L (98-107); Creatinine, Serum 1.05 mg/dL (0.55-1.02); EST Glomerular Filtration Rate 59 mL/min (>60); Est Glom Filt Rate - Afr Amer 71 mL/min (>60); Glucose 158 mg/dL (74-106); Potassium 3.9 mmol/L (3.5-5.1); Sodium Level 140 mmol/L (136-145); Thyroid Stim Hormone (TSH) 2.69 uIU/mL (0.358-3.74)
--- NOTE | 2019-04-25 23:40 | HP.PCM_ITS ---
History and Physical Date of Admission: 04/26/19 HISTORY OF PRESENT ILLNESS 48 year old woman presents with complaints about her bilateral macromastia and associated painful symptomatology of neck pain, thoracic back pain, bilateral shoulder pain from shoulder grooving from the weight of her breasts on her bra straps, and inframammary intertrigo for which she uses powders for relief. She states she has had PT in the past with no relief in her breast symptomatology. She had a mammogram done on 03/02/19. It showed the breasts are almost entirely fatty. There are no dominant masses or suspicious calcifications. Stable small bilateral axillary lymph nodes. No other significant abnormalities are identified. She denies any family history of breast cancer. We have received medical approval for the breast reduction surgery from her insurance carrier. She presents today for a preop evaluation. She states she has quit smoking. PAST MEDICAL HISTORY Arthritis Asthma Back problem Diabetes GERD (gastroesophageal reflux disease) Gastric paresis IBS (irritable bowel syndrome) Kidney stones Migraines Sleep apnea in adult Thyroid disease COPD (chronic obstructive pulmonary disease) PAST SURGICAL HISTORY Carpal tunnel syndrome Cervical cancer Previous section gallbladder removal ALLERGIES codeine nabumetone [From Relafen] Sulfa (Sulfonamide Antibiotics) pregabalin [From Lyrica] albuterol MEDICATIONS Atorvastatin Calcium [Lipitor] Cetirizine HCl [All Day Allergy] Cholecalciferol (Vitamin D3) [Vitamin D3] Duloxetine HCl Febuxostat [Uloric] Fluticasone/Vilanterol [Breo Ellipta] Furosemide [Lasix] Irbesartan [Avapro] Levothyroxine [Synthroid] Lidocaine [Lidoderm Patch] Montelukast Sodium [Singulair] Omeprazole [Prilosec] Potassium Citrate [Potassium Citrate ER] Sodium Chloride [Saline Nasal [place]] metFORMIN HCl [Glucophage] Buprenorphine [Butrans] Gabapentin [Gralise] Linagliptin [Tradjenta] Liraglutide [Victoza] FAMILY HISTORY Mother - Cervical cancer Grandmother - Arthritis. Diabetes Grandfather - Bleeding disorder, Bowel disease, Heart disease Aunt - Throat cancer Father - Diabetes SOCIAL HISTORY Smoking Status: Current every day smoker alcohol intake: never substance use type: does not use REVIEW OF SYSTEMS General - Denies fever, fatigue, and weight loss. Eyes - Denies cataracts and glaucoma. ENT - Denies nasal congestion and sore throat. Endocrine - Denies excessive thirst and urination. Has thyroid disease. Skin - Denies skin cancer. Cystic lesion left cheek removed and healing well. Has inframammary intertrigo for which she uses powders for relief. Musculoskeletal - Denies joint pain, joint stiffness, weakness of muscles and joints, and arthritis. Has neck pain and thoracic back pain. Has bilateral shoulder pain from shoulder grooving from the weight of her breasts on her bra straps. Neuro - Has headaches. Cardiovascular - Denies chest pain, fatigue, and shortness of breath with exertion. Psych - Denies anxiety. Has depression. Respiratory - Denies chronic cough. Has shortness of breath. Has asthma. Patient is a smoker. Gastrointestinal - Denies nausea, vomiting, and constipation. Has some diarrhea. Hematologic - Denies abnormal bruising and bleeding. Genitourinary - Denies hematuria and urinary frequency. PHYSICAL EXAMINATION General - Alert and Oriented. Bra size is 44 DD. HEENT - PERRL. EOMI. Throat is clear. On the left cheek the scar has healed. Neck - Supple and nontender. No cervical adenopathy. No bony tenderness. Has pericervical soft tissue tenderness. Breasts - Bilateral macromastia with the left breast larger than the right breast. No breast masses palpable. No axillary adenopathy. Distance from midclavicular line on the left to the nipple is 34 cm and from the nipple to the inframammary fold is 10 cm. Distance from midclavicular line on the right to the nipple is 33 cm and from the nipple to the inframammary fold is 9 cm. The nipple areolar complex diameter is 8 cm bilaterally. Lungs - Clear to auscultation. Heart - Regular rate and rhythm. Abdomen - Soft and nondistended. Extremities - FROM. No axillary adenopathy. Radial pulses are palpable. Has bilateral shoulder tenderness from shoulder grooving from the weight of her breasts on her bra straps. Back - No bony tenderness. There is perivertebral soft tissue tenderness especially in the thoracic area. Neuro - CN II-XII grossly intact. Psych - Normal mood and affect. ASSESSMENT 1. Bilateral macromastia. 2. Neck pain. 3. Thoracic back pain. 4. Bilateral shoulder pain from shoulder grooving from the weight of the breasts on the bra straps. 5. Inframammary intertrigo. 6. Smoker. PLAN Discussed with the patient the procedure of breast reduction mammoplasty. I feel this procedure would be beneficial in this patient as it would help relieve her painful symptomatology. She recently had a mammogram on 03/02/19. It showed the breasts are almost entirely fatty. There are no dominant masses or suspicious calcifications. Stable small bilateral axillary lymph nodes. No other significant abnormalities are identified. With her large size and associated painful symptomatology, she would benefit from this surgery. I would remove about 500 grams of breast tissue per side, with more being taken from the left breast. Discussed the extent of the scarring. The biggest risk for wound healing issues is in the Tzone area. If it occurs, it requires wound care with Silver dressing changes and antibiotics if the culture is positive. Occasionally a skin graft may be necessary. She voices understanding. Discussed the range of what her size would be. Because she is DD cup, her range would be more likely a low C cup to a high full C cup. She voices understanding. Surgery would be under general anesthesia with a surgical observation overnight stay in the hospital. She will have drains in for a few days. Tissue that is removed will be sent to Pathology for analysis to rule out carcinoma. Her last recorded HgbA1c was 7.4 on 12/20/18. It is less than 8, so we can proceed with the surgery. Patient will let us know when she wants to proceed. Patient was informed of the risks and complications of the procedure including alternatives to surgery. These were discussed with the patient personally. Patient voices understanding and wishes to proceed. Some of the risks and complications were included in a form from the [place] [employer]. Encouraged patient to stop smoking as it may have deleterious effects on wound healing. She states she has quit smoking for the surgery.
[2019-04-26] VITALS (39 sets, daily range): BP systolic 56–115; BP diastolic 31–89; PULSE 63–103; RESP 13–23; TEMP 36.1–36.6; O2SAT 92–100; BMI 32.5; BMI 33.5
[2019-04-26 07:09] LABS: Internal QC Validated? YES +Cl - CLEAR BKGD; Pregnancy, Urine Negative Negative
[2019-04-26 07:50] LABS: Bedside Glucose 137 mg/dL (70-110)
--- NOTE | 2019-04-26 10:08 | SUR.PHASEI ---
UPON ARRIVAL TO PACU, SBP 50-60'S, PATIENT AROUSABLE, DENIES ANY CHEST PAIN, SHORTNESS OF BREATH, OR NAUSEA. PLACED IN SUPINE
--- NOTE | 2019-04-26 10:32 | PN_ITS ---
Progress Note Patient was scheduled to have an elective bilateral breast reduction mammaplasty surgery today. Before putting her under anesthesia, she was noted to have hypotension with systolic in the 50-70 range. She was awake and alert during this time. She states she is on Lasix prn for leg swelling. She has not seen a Automated Access Systems Technician. Being a 5 hour elective procedure, it was decided to cancel the surgery for today and admit her for further evaluation and treatment for her hypotension. Hospitalist Group will be consulted for medical management. After her workup and once she is medically stable, we can reschedule the breast reduction surgery.
--- NOTE | 2019-04-26 10:50 | SUR.PHASEI ---
Addendum entered by Kelley Decker 04/26/19 11:14: DR JOSEPH SPOKE WITH DR FELIX, LICENSED WEIGHER, REPORTEDLY STATES PATIENT SHOULD BE TRANSFERRED TO ICU WITHOUT A CENTRAL LINE AND ON PHENYLEPHRINE GTT, MAY TRANSFER NOW. WILL UPDATE DR FRANCISCO, HOSPITALIST. Original Note: DRS. FRANCISCO, HOSPITALIST, AND JAKE, ANESTHESIA, DISCUSSING CARE AT BEDSIDE. PHENYLEPHRINE GTT STARTED AT 10 MCG/MIN, SBP INCREASED TO 71 IN THE FIRST 5 MINUTES.
--- NOTE | 2019-04-26 10:55 | SUR.PHASEI ---
ARRIVED TO PACU AT 0946, SBP 50-60'S. SURGERY HAS BEEN CANCELLED. EASILY AROUSES AND CONVERSING, DENIES ANY CHEST PAIN, SHORTNESS OF BREATH, NAUSEA, OTHER C/O. LUNGS SCATTERED EXPIRATORY WHEEZES WHICH PATIENT STATES IS CHRONIC DUE TO HER COPD AND ASTHMA. DR JOSEPH, ANESTHESIA, HAS EITHER BEEN AT THE BEDSIDE OR FREQUENTLY UPDATED. HAS BEEN RECEIVING IVF WITHOUT ANY IMPROVEMENT IN SBP OR MAP. STARTED PHENYLEPHRINE GTT SOON IT ARRIVED FROM PHARMACY WITH SOME IMPROVEMENT. DR FRANCISCO, HOSPITALIST, HAS EVALUATED PATIENT IN PACU. FAMILY UPDATED AND AWARE OF PLAN TO TXR TO ICU.
--- NOTE | 2019-04-26 11:16 | CON.PCM_ITS ---
Reason for Consult Date of Consultation: 04/26/19 Reason for Consultation: Shock History of Present Illness: The patient is a 48 year old F with an extensive past medical history as listed. She was admitted on 04/26/2019 from PACU on account of hypotension and subsequent shock. Patient had been scheduled to have elective bilateral breast reduction surgery by Dr. Watkins. During the preop., Patient became hypotensive, with BP in 50s systolic after she received a dose of 2 mg of Versed and 25 mg of fentanyl as well as Precedex. She was persistently hypotensive and not responding to ephedrine or and a dose of neosynephrine. Surgery was therefore aborted, and she was started on IVF. Hospitalist service was consulted to admit for hypotension. Patient was seen down in PACU. She was not responding to IVF, with BP being in 50s and 60s systolic. Patient states she had similar hy potension when she had a mass on her cheek excised some years ago. She was told after that surgery that she was coming out of general anesthesia, she was noted to be hypotensive. However she did not require admission at that time. She denied any lightheadedness or dizziness, palpitations, shortness of breath, chest pain, diarrhea or vomiting. Review of systems is otherwise negative. Patient is on Lasix for lower extremity swelling which was started by her PCP,but states she last took it on the night prior to admission the morning of admission. Patient states that the only meds she had taken in the morning of admission were her diabetes medication. Review of systems is otherwise negative. She denied any history of fever, chills, cough, lightheadedness or dizziness, palpitations, abdominal pain, diarrhea or vomiting prior to coming in for the surgery. Vitals were significant for blood pressure in the 60s systolic with pressure being 67/39 at time of review. Pulse was around 79. Pulse in PACU, patient was started on Bob-Synephrine drip by the peripheral line on account of shock of unknown etiology. She was admitted to ICU for further management. Registered Massage Therapist consulted. [] Past Medical History Past Medical History (Chronic Problems): Chronic Problems (Last Updated 08/29/18 @ 09:06 by Deedee Newton) Smoker (Chronic) Intertrigo (Chronic) inframammary intertrigo Shoulder pain (Chronic) bilateral shoulder pain from shoulder grooving from the weight of her breasts on her bra straps Chronic thoracic back pain (Chronic) Chronic cervical pain (Chronic) Breast hypertrophy (Chronic) bilateral macromastia Cheek mass (Chronic) 7 mm chronically infected soft tissue mass left cheek. 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 IBS (irritable bowel syndrome) K58.9 Kidney stones N20.0 Migraines G43.909 Multiple allergies Z88.9 Sleep apnea in adult G47.30 Thyroid disease E07.9 COPD (chronic obstructive pulmonary disease) J44.9 Chronic pain G89.29 Allergies codeine Allergy (Verified 04/26/19 07:35) Rash nabumetone [From Relafen] Allergy (Verified 04/26/19 07:35) Rash Sulfa (Sulfonamide Antibiotics) Allergy (Verified 04/26/19 07:35) Rash pregabalin [From Lyrica] Adverse Reaction (Verified 04/26/19 07:35) confusion/delirium CONFUSION/DELIRIUM albuterol Adverse Reaction (Uncoded 04/26/19 07:35) Laryngospasms Home Medications: Ambulatory Orders Medication Instructions Recorded Atorvastatin Calcium [Lipitor] 40 mg PO QHS 03/05/18 Cetirizine HCl [All Day Allergy] 10 mg PO DAILY 03/05/18 Cholecalciferol (Vitamin D3) 5,000 unit PO DAILY 03/05/18 [Vitamin D3] Duloxetine HCl 60 mg PO DAILY 03/05/18 Febuxostat [Uloric] 80 mg PO DAILY 03/05/18 Fluticasone/Vilanterol [Breo 1 puff IH DAILY 03/05/18 Ellipta 200-25 Mcg INH] Furosemide [Lasix] 20 mg PO DAILY 03/05/18 Irbesartan [Avapro] 75 mg PO QHS 03/05/18 Levothyroxine [Synthroid] 100 mcg PO DAILY 03/05/18 Lidocaine [Lidoderm Patch] 1 patch TOPICAL DAILY 03/05/18 Montelukast Sodium [Singulair] 10 mg PO DAILY 03/05/18 Omeprazole [Prilosec] 40 mg PO DAILY 03/05/18 Potassium Citrate [Potassium 15 meq PO DAILY 03/05/18 Citrate ER] Sodium Chloride [Saline Nasal 1 spray NS Q2H PRN 03/05/18 [place]] metFORMIN HCl [Glucophage] 1,000 mg PO BIDCM 03/05/18 Buprenorphine 20 Mcg/Hr [Butrans 20 mcg TRANSDERM. SA 10/11/18 20 Mcg/Hr] Gabapentin [Gralise] 600 mg PO TID 10/11/18 Linagliptin [Tradjenta] 5 mg PO DAILY 04/19/19 Liraglutide [Victoza] 18 mg IN DINNER 04/19/19 Surgical History: Surgical History (Last Updated 08/29/18 @ 09:10 by Deedee Newton) Carpal tunnel syndrome G56.00 Cervical cancer C53.9 3/4 REMOVAL OF CERVIX Previous section Z98.891 gallbladder removal Surgical History: - - Carpal tunnel release, ?2, cholecystectomy. 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 Lives: With Family Smoking Status: Current every day smoker Tobacco Use: Cigarettes Alcohol: None Drugs: None - *Family History Maternal Family History: Family History (Last Updated 08/29/18 @ 09:17 by Deedee Newton) Mother Cervical cancer Grandmother Arthritis Diabetes Grandfather Bleeding disorder Bowel disease Heart disease Aunt Throat cancer Father Diabetes History Items: Diabetes Paternal Family History: Family History (Last Updated 08/29/18 @ 09:17 by Deedee Newton) Mother Cervical cancer Grandmother Arthritis Diabetes Grandfather Bleeding disorder Bowel disease Heart disease Aunt Throat cancer Father Diabetes History Items: No pertinent history Review of Systems Constitutional: Denies: Chills, Fever, Malaise, Weakness, Weight Change, Fatigue Eyes: Denies: Blurred vision HEENT: Denies: Head Aches, Sinus Congestion, Sinus Drainage Cardiovascular: Denies: Chest Pain, Heaviness, Light Headedness, Palpitations Respiratory: Denies: Cough, Shortness of Breath, Shortness of breath at rest, Shortness of breath upon exertion, Sputum production Gastrointestinal: Denies: Abdominal Pain, Nausea, Vomiting Genitourinary: Denies: Dysuria Musculoskeletal: Denies: Joint Pain, Joint Tenderness Skin: Denies: Rash, Wounds Neurological: Denies: Numbness, Tingling, Focal weakness Psychiatric: Denies: Anxiety, Depression, Homicidal Ideations, Suicidal Ideations Hematologic/ Lymphatic: Denies: Easy Bruising, Easy Bleeding - Physical Exam General: Alert, Oriented x3, Cooperative, No apparent distress HEENT: Atraumatic, PERRLA, EOMI, Normocephalic Oral: Dry Mucosa Neck: Supple, No JVD, Negative Carotid Bruits Lungs: Clear to auscultation, Normal air movement Cardiovascular: Regular rate, Regular Rhythm, Normal S1, Normal S2, No murmurs Abdomen: Bowel Sounds Present, Soft, Non Tender, Non-Distended, No Hepato- splenomegaly Extremities: No clubbing, No cyanosis, No edema, Capillary Refill Less than 3 Seconds Skin: No rashes, No breakdown Musculoskeletal: No Tenderness to Palpation of Joints or Extremities Lymphatic: No Cervical, Supraclavicular, or Inguinal Adenopathy Neurological: Cranial nerves II-XII grossly intact, Neuro grossly intact, Motor Exam 5/5 strength throughout Psych/Mental Status: Normal Affect, Appropriate, Alert and oriented to time, place, person, mood and affect Vital Signs Temp Pulse Resp BP Pulse Ox 97.5 F L 73 16 67/39 L 99 04/26/19 09:46 04/26/19 11:10 04/26/19 11:10 04/26/19 11:10 04/26/19 11:10 Oxygen Flow Rate (L/min) 2 Oxygen Delivery Method Nasal Cannula Weight: 196 lb Body Mass Index (BMI) 32.5 Finger Stick Blood Glucose 366 Laboratory Tests Past 24 Hrs 04/26/19 06:50 Urine Test Negative POC Glucose 04/26/19 07:32 POC Glucose 137 H Assessment/Plan All Active Problems (Last Updated 08/29/18 @ 09:06 by Deedee Newton) Encephalopathy acute (Acute) Acute cholecystitis (Resolved) Gallbladder rupture (Resolved) Respiratory failure (Resolved) Severe sepsis (Resolved) Surgical wound dehiscence (Resolved) Wound infection after surgery (Resolved) 48 y/o female admitted from PACU o/a of shock possibly due to anesthesia medication 1. Hypovolemic shock probablydue to anesthesia medications * admit to ICU * consult chief lock tender operator * continue neosynephrine, and continue IVF ~ 150cc/hr * titrate neosynephrine to maintain MAP>65 * get 2D echo * CBC and BMP done 2 days ago were WNL, apart from WBc of 13.4 * will check CBC and BMP * hold BP meds and lasix * 2. History of hypertension: on irbesartan. Will hold 3. Diabetes mellitus: * on linagliptin and liraglutide as well as metformin. * Will hold metformin o/a of hypotension and possible kidney impairment. ISS. Accuchecks ACHS. * 4. Hypothyroidism: on synthroid 5. Asthma and COPD: on Bre0. Breathing treatments with Duonebs 6. GERD: on omeprazole DVT prophylaxis: lovenox Code Visit Inpatient E&M: 00711 Init Hosp L3 OBSV E&M: 54444 Initial observation care L3
[2019-04-26 12:06] LABS: Bedside Glucose 94 mg/dL (70-110)
--- NOTE | 2019-04-26 12:10 | NURSING ---
In ICU4 from PACU, AIR ROUTE CONTROLLER in attendance
--- NOTE | 2019-04-26 12:26 | ECHOD_ITS ---
Reason For Study: Dyspnea/SOB Procedure This was a 2D Doppler, Color Flow transthoracic echocardiogram. Exam performed portable in ICU/CCU. Left Ventricle Normal LV size. Left ventricular systolic function is normal. The estimated ejection fraction is 60 %. Normal diastology for age. No regional wall motion abnormalities noted. Right Ventricle Normal RV size. Normal systolic function. Atria Normal left atrium. Normal right atrium. Mitral Valve Normal mitral valve. Tricuspid Valve Normal tricuspid valve. Mild tricuspid valve insufficiency. Pulmonary artery systolic pressure is 28 mmHg. Aortic Valve Normal aortic valve. Pulmonic Valve Normal pulmonic valve. Great Vessels Normal aortic root. The pulmonary artery is normal size. Normal inferior vena cava. Pericardium/Pleural No pericardial effusion. MMode/2D Measurements & Calculations LVIDd: 4.0 cm IVSd: 0.91 cm LA dimension: 3.7 cm LVIDs: 2.4 cm LVPWd: 0.92 cm RVDd: 3.4 cm FS: 39.6 % LAV(MOD-bp): 42.8 ml LA A4 area: 17.1 cm2 RA A4 area: 12.3 cm2 LAV(MOD-bp) Indexed: 21.5 ml/m2 LAV(MOD-sp2): 33.6 ml LAV(MOD-sp4): 49.1 ml Time Measurements MV dec time: 0.27 sec Doppler Measurements & Calculations MV E max stevie: 92.2 cm/sec Lat Peak E' Stevie: 14.5 cm/sec Med Peak E' Stevie: 10.7 cm/sec MV A max stevie: 68.5 cm/sec E/E' lat: 6.4 E/E' med: 8.6 MV E/A: 1.3 MV V2 max: 93.7 cm/sec MV P1/2t max stevie: 93.7 cm/sec Ao V2 max: 133.9 cm/sec MV max P.5 mmHg MV P1/2t: 84.6 msec Ao max P.2 mmHg MV V2 mean: 50.9 cm/sec MV dec slope: 324.7 cm/sec2 MV mean P.2 mmHg MVA(P1/2t): 2.6 cm2 MV V2 VTI: 32.0 cm LV V1 max: 117.5 cm/sec PA V2 max: 66.0 cm/sec TR max stevie: 242.1 cm/sec LV V1 max P.5 mmHg TR max P.5 mmHg Interpretation Summary Normal LV size. Left ventricular systolic function is normal. The estimated ejection fraction is 60 %. Normal diastology for age. Pulmonary artery systolic pressure is 28 mmHg. Ordering Physician: Giana Jones Referring Physician: Parth Watkins Performed By: Quintin Cline RCS
--- NOTE | 2019-04-26 13:06 | CON.PCM_ITS ---
Problem List (1) Smoker Status: Chronic (2) Shoulder pain Status: Chronic Qualifiers: Chronicity: chronic Laterality: bilateral Qualified Code(s): M25.511 - Pain in right shoulder; M25.512 - Pain in left shoulder; G89.29 - Other chronic pain Comment: bilateral shoulder pain from shoulder grooving from the weight of her breasts on her bra straps (3) Chronic thoracic back pain Status: Chronic Qualifiers: Back pain laterality: midline Qualified Code(s): M54.6 - Pain in thoracic spine; G89.29 - Other chronic pain (4) Chronic cervical pain Status: Chronic (5) Breast hypertrophy Status: Chronic Comment: bilateral macromastia (6) HLD (hyperlipidemia) Status: Chronic Qualifiers: Hyperlipidemia type: unspecified Qualified Code(s): E78.5 - Hyperlipidemia, unspecified (7) Tobacco use Status: Chronic (8) Obesity (BMI 30-39.9) Status: Chronic (9) Chronic low back pain Status: Chronic Qualifiers: Back pain laterality: unspecified Sciatica presence: unspecified whether sciatica present Qualified Code(s): M54.5 - Low back pain; G89.29 - Other chronic pain (10) COPD (chronic obstructive pulmonary disease) Status: Chronic Qualifiers: COPD type: unspecified COPD Qualified Code(s): J44.9 - Chronic obstructive pulmonary disease, unspecified (11) Hypertension Status: Chronic Qualifiers: Hypertension type: essential hypertension Qualified Code(s): I10 - Essential (primary) hypertension (12) Cervical cancer Status: Chronic Qualifiers: Malignant neoplasm of cervix location: unspecified location Qualified Code(s): C53.9 - Malignant neoplasm of cervix uteri, unspecified Reason for Consult Date of Consultation: 04/26/19 Reason for Consultation: Hypotension History of Present Illness: The patient is a 48 year old F, with past medical history listed below, who presented [facility] on 04/26/2019 secondary to elective bilateral breast reduction to be completed by Dr. Watkins. Patient reportedly was of her usual health upon presentation. Patient received Precedex, Versed and fentanyl in the preanesthesia area. Patient then became hypotensive. Patient was given ephedrine and a dose of Bob-Synephrine. Patient persisted to have blood pressures in the 50s to 60s systolic. Patient reportedly had blood pressures as low as 67/39 in the PACU. Patient was initiated on Bob-Synephrine drip and ICU was called for evaluation. Patient reports that she was of her usual health prior to presentation. Patient does have multiple medications that she takes chronically including inhalers for COPD/asthma, active tobacco abuse, obesity, and a history of hypertension. Patient is on Lasix at baseline for lower extremity swelling, but states that her echoes have been normal. Patient was placed on a statin secondary to elevated lipids, but stated these are not that bad. Patient has never been told about any peripheral artery disease. Patient does report that after a cheek surgery she was having problems with hypotension. On presentation to the intensive care unit, patient was mentating at her baseline. Patient states that she feels tired, but otherwise has no issues. Patient is not reporting any chest pain, abdominal pain, nausea or vomiting. Patient was on Bob-Synephrine at 40. This was running through a peripheral line. Patient was able to be rapidly weaned off of Bob-Synephrine, but blood pressures did remain marginal. Repeat blood pressures show a 20 to 30mmHg drop from the right arm to the left arm. Patient was given 1 L of LR and reported subjective improvement in overall condition. Patient does report that she took her Lantus overnight despite being n.p.o. Patient states her last food was at 8 PM and her last drink was at midnight. Patient did report taking a small sip of water this morning for her Synthroid. Patient denies any history of obstructive sleep apnea. Patient states that she is never had a sleep study. Patient does not snore and denies any hypersomnia symptoms. She denies any difficulty with blood pressure in one arm versus the other previously. Review of systems otherwise negative x10 systems. Past Medical History Past Medical History (Chronic Problems): Chronic Problems (Last Updated 08/29/18 @ 09:06 by Deedee Newton) Smoker (Chronic) Intertrigo (Chronic) inframammary intertrigo Shoulder pain (Chronic) bilateral shoulder pain from shoulder grooving from the weight of her breasts on her bra straps Chronic thoracic back pain (Chronic) Chronic cervical pain (Chronic) Breast hypertrophy (Chronic) bilateral macromastia Cheek mass (Chronic) 7 mm chronically infected soft tissue mass left cheek. 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 IBS (irritable bowel syndrome) K58.9 Kidney stones N20.0 Migraines G43.909 Multiple allergies Z88.9 Sleep apnea in adult G47.30 Thyroid disease E07.9 COPD (chronic obstructive pulmonary disease) J44.9 Chronic pain G89.29 Allergies codeine Allergy (Verified 04/26/19 07:35) Rash nabumetone [From Relafen] Allergy (Verified 04/26/19 07:35) Rash Sulfa (Sulfonamide Antibiotics) Allergy (Verified 04/26/19 07:35) Rash pregabalin [From Lyrica] Adverse Reaction (Verified 04/26/19 07:35) confusion/delirium CONFUSION/DELIRIUM albuterol Adverse Reaction (Uncoded 04/26/19 07:35) Laryngospasms Home Medications: Ambulatory Orders Medication Instructions Recorded Atorvastatin Calcium [Lipitor] 40 mg PO QHS 03/05/18 Cetirizine HCl [All Day Allergy] 10 mg PO DAILY 03/05/18 Cholecalciferol (Vitamin D3) 5,000 unit PO DAILY 03/05/18 [Vitamin D3] Duloxetine HCl 60 mg PO DAILY 03/05/18 Febuxostat [Uloric] 80 mg PO DAILY 03/05/18 Fluticasone/Vilanterol [Breo 1 puff IH DAILY 03/05/18 Ellipta 200-25 Mcg INH] Furosemide [Lasix] 20 mg PO DAILY 03/05/18 Irbesartan [Avapro] 75 mg PO QHS 03/05/18 Levothyroxine [Synthroid] 100 mcg PO DAILY 03/05/18 Lidocaine [Lidoderm Patch] 1 patch TOPICAL DAILY 03/05/18 Montelukast Sodium [Singulair] 10 mg PO DAILY 03/05/18 Omeprazole [Prilosec] 40 mg PO DAILY 03/05/18 Potassium Citrate [Potassium 15 meq PO DAILY 03/05/18 Citrate ER] Sodium Chloride [Saline Nasal 1 spray NS Q2H PRN 03/05/18 [place]] metFORMIN HCl [Glucophage] 1,000 mg PO BIDCM 03/05/18 Buprenorphine 20 Mcg/Hr [Butrans 20 mcg TRANSDERM. SA 10/11/18 20 Mcg/Hr] Gabapentin [Gralise] 600 mg PO TID 10/11/18 Linagliptin [Tradjenta] 5 mg PO DAILY 04/19/19 Liraglutide [Victoza] 18 mg IN DINNER 04/19/19 Surgical History: Surgical History (Last Updated 08/29/18 @ 09:10 by Deedee Newton) Carpal tunnel syndrome G56.00 Cervical cancer C53.9 3/4 REMOVAL OF CERVIX Previous section Z98.891 gallbladder removal Surgical History: - - Carpal tunnel release, ?2, cholecystectomy. 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 Lives: With Family Smoking Status: Current every day smoker Tobacco Use: Cigarettes Alcohol: None Drugs: None - *Family History Maternal Family History: Family History (Last Updated 08/29/18 @ 09:17 by Deedee Newton) Mother Cervical cancer Grandmother Arthritis Diabetes Grandfather Bleeding disorder Bowel disease Heart disease Aunt Throat cancer Father Diabetes History Items: Diabetes Paternal Family History: Family History (Last Updated 08/29/18 @ 09:17 by Deedee Newton) Mother Cervical cancer Grandmother Arthritis Diabetes Grandfather Bleeding disorder Bowel disease Heart disease Aunt Throat cancer Father Diabetes History Items: No pertinent history Review of Systems Comment: See HPI Objective: Echocardiogram completed 01/30/2018 shows an EF of 65% with stage I diastolic dysfunction. RVSP noted to be 31 mmHg. No significant valvular abnormalities. No PFT or PSG is available for review. - Physical Exam General: Alert, Oriented x3, Cooperative, No apparent distress, Well developed, Well nourished, - - Obese. No conversational dyspnea. HEENT: Atraumatic, PERRLA, EOMI, Normocephalic, - - No scleral icterus or injection noted. Oral: Moist Mucosa, No Gingival or Mucosal Lesions/ Ulcerations, - - No mucosal edema or ulcerations noted. Neck: Supple, No JVD, No Nodes, Trachea Midline Lungs: Clear to auscultation, Normal air movement, No rhonchi, No wheeze, No rales Cardiovascular: Regular rate, Regular Rhythm, Normal S1, Normal S2, No murmurs, No rub noted, No Gallop Abdomen: Bowel Sounds Present, Soft, Non Tender, Non-Distended, Obese Extremities: No clubbing, No cyanosis, Edema - Trace lower extremity Skin: No rashes - No anaphylactic skin eruptions appreciated, No breakdown Musculoskeletal: No Tenderness to Palpation of Joints or Extremities Lymphatic: No Cervical, Supraclavicular, or Inguinal Adenopathy Neurological: Cranial nerves II-XII grossly intact, Neuro grossly intact, Motor Exam 5/5 strength throughout Psych/Mental Status: Alert and oriented to time, place, person, mood and affect Vital Signs Temp Pulse Resp BP Pulse Ox 36.1 C L 70 19 H 95/59 L 97 04/26/19 12:38 04/26/19 12:38 04/26/19 12:38 04/26/19 12:38 04/26/19 12:38 Oxygen Flow Rate (L/min) 2 Oxygen Delivery Method Room Air Weight: 92.8 kg Body Mass Index (BMI) 33.5 Finger Stick Blood Glucose 366 Intake and Output for Last 24 Hours 04/24/19 04/25/19 04/26/19 23:59 23:59 23:59 Intake Total 1500 / 1500 Balance 1500 / 1500 Laboratory Tests Past 24 Hrs 04/26/19 06:50 Urine Test Negative POC Glucose 04/26/19 04/26/19 12:00 07:32 POC Glucose 94 137 H Assessment/Plan RECOMMENDATIONS: 1. Aggressive volume resuscitation 2. Obtain baseline labs 3. Obtain CTA of the chest once hemodynamically stable 4. Check random cortisol 5. No central line at this time IMPRESSIONS: 1. Hypotension Unclear etiology at this time. Patient appears to be responding to aggressive fluid resuscitation. Patient did receive medications for anxiolytic effects prior to surgery, but not a doses that would expect hypotension. Patient does not have any signs or symptoms of anaphylaxis at this time. Patient does have a significant discrepancy between arms, so coarctation of the aorta and subclavian stenosis would be a consideration. Patient does take inhaled corticosteroids, but no systemic steroids. Will obtain a random cortisol level. Another differential diagnosis would include dehydration secondary to n.p.o. status. Once patient is volume resuscitated, will obtain a CTA of the chest for evaluation of arterial stenosis. 2. COPD/active tobacco abuse Unclear if patient truly has COPD. This cannot be verified by testing. Patient can be placed on therapeutic substitution for home medications at this time. There are no signs or symptoms of exacerbation noted. 3. Obesity/chronic pain/hypertension/hyperlipidemia/history of cervical cancer Complicates care, management, recovery and prognosis. Okay to continue with baseline medications from my perspective, except for hypertensive medications given patient's acute presentation. Code Visit Inpatient E&M: 59954 Init Hosp L3
[2019-04-26 13:31] LABS: Bedside Glucose 83 mg/dL (70-110)
[2019-04-26] MEDS: Dextrose 5%/0.9% NaCl 1,000 ML 100 ML IV (14:01)
[2019-04-26 14:10] LABS: Hematocrit 38.7 % (37-47); Hemoglobin 13.1 g/dl (12.0-15.0); Mean Corp Hgb Conc 33.9 g/gl (32-36); Mean Corpuscular Hgb 30.3 pg (27.0-32.0); Mean Corpuscular Volume 89.6 fL (81-99); Mean Platelet Vol. 9.6 fl (6.2-12.0); Platelet Count 302 K/mm3 (150-450); RBC Distribution Width CV 13.4 % (11.6-14.6); RBC Distribution Width SD 43.6 fl (35.1-43.9); Red Blood Count 4.32 M/mm3 (4.2-5.4); White Blood Count 14.9 K/mm3 (4.4-11.0)
[2019-04-26 14:11] LABS: Scan Indicated on CBC? Y/N NO
[2019-04-26 14:25] LABS: ALB/GLOB Ratio 0.9 RATIO (0.9-2.4); AST(SGOT) 26 U/L (15-37); Alanine Aminotransfer ALT/SGPT 23 U/L (13-56); Albumin, Serum 3.2 g/dL (3.2-5.0); Alkaline Phosphatase 69 U/L (45-117); Anion Gap 5 (5-15); BUN 18 mg/dL (7-18); BUN/Creat Ratio 11.2 RATIO (10-20); Calcium,Total 8.4 mg/dL (8.5-10.1); Chloride 109 mmol/L (98-107); EST Glomerular Filtration Rate 36 mL/min (>60); Est Glom Filt Rate - Afr Amer 44 mL/min (>60); Estimated Creatinine Clearance 38.27 ml/min; Globulin 3.4 g/dL (2.2-4.2); Glucose 78 mg/dL (74-106); Potassium 3.5 mmol/L (3.5-5.1); Protein, Total 6.6 g/dL (6.4-8.2); Sodium Level 138 mmol/L (136-145)
[2019-04-26] MEDS: Lactated Ringers 1,000 ML 999 ML IV (14:37)
[2019-04-26] MEDS: Gabapentin 600 MG Tablet PO (17:17)
[2019-04-26 17:20] LABS: Bedside Glucose 109 mg/dL (70-110)
[2019-04-26] MEDS: Atorvastatin Calcium 40 MG Tablet PO (21:57)
[2019-04-26 22:05] LABS: Bedside Glucose 99 mg/dL (70-110)
[2019-04-27 02:00] VITALS: BP 133/81; PULSE 70; RESP 19; TEMP 36.4; O2SAT 99
[2019-04-27 03:10] VITALS: PULSE 69
[2019-04-27] MEDS: Levothyroxine 100 MCG Tablet PO (04:32)
[2019-04-27 04:36] LABS: Basophil# 0.02 X10^3/uL; Basophil% 0.1 % (0-1); Eosinophils% 0.7 % (0-5); Hematocrit 38.5 % (37-47); Hemoglobin 13.1 g/dl (12.0-15.0); Mean Corpuscular Hgb 30.8 pg (27.0-32.0); Mean Corpuscular Volume 90.4 fL (81-99); Mean Platelet Vol. 9.3 fl (6.2-12.0); Monocyte# 0.71 X10^3/uL; Monocyte% 5.1 % (0-10); Neutrophil # 8.04 X10^3/uL (2.7-7.7); Neutrophil % 57.9 % (47-70); Platelet Count 265 K/mm3 (150-450); RBC Distribution Width CV 13.4 % (11.6-14.6); RBC Distribution Width SD 43.9 fl (35.1-43.9); Red Blood Count 4.26 M/mm3 (4.2-5.4); White Blood Count 13.9 K/mm3 (4.4-11.0)
[2019-04-27 05:07] LABS: Anion Gap 9 (5-15); BUN 14 mg/dL (7-18); BUN/Creat Ratio 12.2 RATIO (10-20); Calcium,Total 8.8 mg/dL (8.5-10.1); Chloride 108 mmol/L (98-107); Creatinine, Serum 1.15 mg/dL (0.55-1.02); EST Glomerular Filtration Rate 53 mL/min (>60); Est Glom Filt Rate - Afr Amer 64 mL/min (>60); Estimated Creatinine Clearance 53.25 ml/min; Glucose 96 mg/dL (74-106); POSITIVE COUNT NO; POSITIVE DIFFERENTIAL NO; POSITIVE MORPHOLOGY NO; Potassium 3.5 mmol/L (3.5-5.1); Sodium Level 142 mmol/L (136-145)
[2019-04-27 06:51] VITALS: PULSE 98; RESP 16; O2SAT 95
[2019-04-27] MEDS: Budesonide Respules 0.5 MG/2 ML AMPUL.NEB. INHALATION (06:51)
[2019-04-27 07:01] VITALS: PULSE 74
--- NOTE | 2019-04-27 07:07 | CPS ---
Pt declined Albuterol, says it causes bronchospasm.
[2019-04-27 07:10] LABS: Bedside Glucose 111 mg/dL (70-110)
--- NOTE | 2019-04-27 07:21 | PN_ITS ---
Subjective: Patient responded well to fluid boluses yesterday. Blood pressure has been normalized overnight. Patient reports no symptoms at this time. Objective: Echocardiogram showed an EF of 60% with normal diastolic function. Pulmonary artery systolic pressure estimated at 28 mmHg. General: Alert, Oriented x3, Cooperative, No apparent distress, Well developed, Well nourished, - - Obese. No conversational dyspnea. HEENT: Atraumatic, PERRLA, EOMI, Normocephalic, - - No scleral icterus or injection noted. Oral: Moist Mucosa, No Gingival or Mucosal Lesions/ Ulcerations Neck: Supple, No JVD, No Nodes, Trachea Midline Lungs: Clear to auscultation, Normal air movement, No rhonchi, No wheeze, No rales Cardiovascular: Regular rate, Regular Rhythm, Normal S1, Normal S2, No murmurs, No rub noted, No Gallop Abdomen: Bowel Sounds Present, Soft, Non Tender, Non-Distended, Obese Extremities: No clubbing, No cyanosis, No edema, Capillary Refill Less than 3 Seconds Skin: No rashes, No breakdown Musculoskeletal: No Tenderness to Palpation of Joints or Extremities Lymphatic: No Cervical, Supraclavicular, or Inguinal Adenopathy Neurological: Cranial nerves II-XII grossly intact, Neuro grossly intact, Motor Exam 5/5 strength throughout Psych/Mental Status: Alert and oriented to time, place, person, mood and affect Vital Signs Temp Pulse Resp BP Pulse Ox 36.4 C L 69 19 H 133/81 H 99 04/27/19 02:00 04/27/19 03:10 04/27/19 02:00 04/27/19 02:00 04/27/19 02:00 Oxygen Flow Rate (L/min) 2 Oxygen Delivery Method Room Air Weight: 93.7 kg Body Mass Index (BMI) 33.5 Finger Stick Blood Glucose 366 Intake and Output for Last 24 Hours 04/25/19 04/26/19 04/27/19 23:59 23:59 23:59 Intake Total 5207 / 5657 850 / 850 Output Total 200 / 200 Balance 5007 / 5457 850 / 850 Labs (Last 48 Hours) 04/26/19 04/26/19 04/26/19 06:50 07:32 12:00 WBC Corrected WBC RBC Hgb Hct MCV MCH MCHC RDW RDW Differential Plt Count MPV Immature Gran % (Auto) Neut % (Auto) Lymph % (Auto) [place] % (Auto) Eos % (Auto) Baso % (Auto) Absolute Neuts (auto) Absolute Lymphs (auto) Total Counted Differential Comment Diff Path Review Sodium Potassium Chloride Carbon Dioxide Anion Gap BUN Creatinine Estim Creat Clear Calc Est GFR (MDRD) Af Amer Est GFR (MDRD) Non-Af BUN/Creatinine Ratio Glucose Calcium Total Bilirubin AST ALT Alkaline Phosphatase Total Protein Albumin Globulin Albumin/Globulin Ratio Cortisol Urine Test Negative POC Glucose 137 H 94 04/26/19 04/26/19 04/26/19 12:30 13:20 13:20 WBC Cancelled Corrected WBC Cancelled RBC Cancelled Hgb Cancelled Hct Cancelled MCV Cancelled MCH Cancelled MCHC Cancelled RDW Cancelled RDW Differential Cancelled Plt Count Cancelled MPV Cancelled Immature Gran % (Auto) Neut % (Auto) Lymph % (Auto) [place] % (Auto) Eos % (Auto) Baso % (Auto) Absolute Neuts (auto) Absolute Lymphs (auto) Total Counted Differential Comment Cancelled Diff Path Review Cancelled Sodium Cancelled Potassium Cancelled Chloride Cancelled Carbon Dioxide Cancelled Anion Gap Cancelled BUN Cancelled Creatinine Cancelled Estim Creat Clear Calc Cancelled Est GFR (MDRD) Af Amer Cancelled Est GFR (MDRD) Non-Af Cancelled BUN/Creatinine Ratio Cancelled Glucose Cancelled Calcium Cancelled Total Bilirubin Cancelled AST Cancelled ALT Cancelled Alkaline Phosphatase Cancelled Total Protein Cancelled Albumin Cancelled Globulin Cancelled Albumin/Globulin Ratio Cancelled Cortisol Urine Test POC Glucose 83 04/26/19 04/26/19 04/26/19 13:20 14:00 14:00 WBC Corrected WBC RBC Hgb Hct MCV MCH MCHC RDW RDW Differential Plt Count MPV Immature Gran % (Auto) Neut % (Auto) Lymph % (Auto) [place] % (Auto) Eos % (Auto) Baso % (Auto) Absolute Neuts (auto) Absolute Lymphs (auto) Total Counted Differential Comment Diff Path Review Sodium 138 Potassium 3.5 Chloride 109 H Carbon Dioxide 24.0 Anion Gap 5 BUN 18 Creatinine 1.60 H Estim Creat Clear Calc 38.27 Est GFR (MDRD) Af Amer 44 L Est GFR (MDRD) Non-Af 36 L BUN/Creatinine Ratio 11.2 Glucose 78 Calcium 8.4 L Total Bilirubin 0.40 AST 26 ALT 23 Alkaline Phosphatase 69 Total Protein 6.6 Albumin 3.2 Globulin 3.4 Albumin/Globulin Ratio 0.9 Cortisol Cancelled 2.20 L Urine Test POC Glucose 04/26/19 04/26/19 04/26/19 14:00 17:13 21:56 WBC 14.9 H Corrected WBC RBC 4.32 Hgb 13.1 Hct 38.7 MCV 89.6 MCH 30.3 MCHC 33.9 RDW 13.4 RDW Differential 43.6 Plt Count 302 MPV 9.6 Immature Gran % (Auto) Neut % (Auto) Lymph % (Auto) [place] % (Auto) Eos % (Auto) Baso % (Auto) Absolute Neuts (auto) Absolute Lymphs (auto) Total Counted Differential Comment Diff Path Review Sodium Potassium Chloride Carbon Dioxide Anion Gap BUN Creatinine Estim Creat Clear Calc Est GFR (MDRD) Af Amer Est GFR (MDRD) Non-Af BUN/Creatinine Ratio Glucose Calcium Total Bilirubin AST ALT Alkaline Phosphatase Total Protein Albumin Globulin Albumin/Globulin Ratio Cortisol Urine Test POC Glucose 109 99 04/27/19 04/27/19 04/27/19 04:30 04:30 07:07 WBC 13.9 H Corrected WBC RBC 4.26 Hgb 13.1 Hct 38.5 MCV 90.4 MCH 30.8 MCHC 34.0 RDW 13.4 RDW Differential 43.9 Plt Count 265 MPV 9.3 Immature Gran % (Auto) 0.200 Neut % (Auto) 57.9 Lymph % (Auto) 36.0 [place] % (Auto) 5.1 Eos % (Auto) 0.7 Baso % (Auto) 0.1 Absolute Neuts (auto) 8.0 H Absolute Lymphs (auto) 5.00 H Total Counted Not Reportable Differential Comment Diff Path Review Sodium 142 Potassium 3.5 Chloride 108 H Carbon Dioxide 25.0 Anion Gap 9 BUN 14 Creatinine 1.15 H Estim Creat Clear Calc 53.25 Est GFR (MDRD) Af Amer 64 Est GFR (MDRD) Non-Af 53 L BUN/Creatinine Ratio 12.2 Glucose 96 Calcium 8.8 Total Bilirubin AST ALT Alkaline Phosphatase Total Protein Albumin Globulin Albumin/Globulin Ratio Cortisol Urine Test POC Glucose 111 H Medical Necessity - Tobacco Use Smoking Status: Current every day smoker Tobacco Use: Cigarettes Assessment/Plan All Active Problems (Last Updated 08/29/18 @ 09:06 by Deedee Newton) Encephalopathy acute (Acute) Acute cholecystitis (Resolved) Gallbladder rupture (Resolved) Respiratory failure (Resolved) Severe sepsis (Resolved) Surgical wound dehiscence (Resolved) Wound infection after surgery (Resolved) RECOMMENDATIONS: 1. Discontinue all IV fluids 2. Monitor tolerance of breakfast 3. Consider outpatient evaluation by endocrinology 4. Hemodynamically stable on room air. Okay to discharge from my perspective with follow-up only if patient wishes to pursue COPD diagnosis IMPRESSIONS: 1. Hypotension Unclear etiology at this time. Patient responded well to aggressive fluid resuscitation. There was a significant difference in blood pressures between the left and right arm, so subclavian stenosis versus coarctation would be a consideration. Patient could have a CTA of the chest as an outpatient for evaluation. Patient's random cortisol level was low, so evaluation by career and technology education teacher as an outpatient for possible adrenal suppression could also be reasonable. That being said, patient is hemodynamically stable on room air at this time and can likely be discharged from the hospital. 2. COPD/active tobacco abuse Unclear if patient truly has COPD. This cannot be verified by testing. Patient can be placed on therapeutic substitution for home medications at this time. There are no signs or symptoms of exacerbation noted. 3. Obesity/chronic pain/hypertension/hyperlipidemia/history of cervical cancer Complicates care, management, recovery and prognosis. Okay to continue with baseline medications from my perspective, except for hypertensive medications given patient's acute presentation. Code Visit Inpatient E&M: 50796 Subs Hosp L2
[2019-04-27 08:00] VITALS: BP 110/73; PULSE 78; RESP 19; TEMP 36.5; O2SAT 96
--- NOTE | 2019-04-27 09:13 | PCM.DC ---
You will use the following diet at home:: Cardiac Your food should be the consistency of: Regular Your liquids should be the consistency of: Regular/Thin Discharge Activity: Return to Normal Activity Weight Bearing Status: Weight bearing as tolerated Call your doctor if you observe: Fever of 101 or Higher, Shortness of breath, Fainting spells Instructions: Low Blood Pressure (Hypotension) Additional Instructions: Irbesartan and lasix stopped o/a of hyppotension Allergies/Adverse Reactions: Allergies codeine Allergy (Verified 04/26/19 07:35) Rash nabumetone [From Relafen] Allergy (Verified 04/26/19 07:35) Rash Sulfa (Sulfonamide Antibiotics) Allergy (Verified 04/26/19 07:35) Rash pregabalin [From Lyrica] Adverse Reaction (Verified 04/26/19 07:35) confusion/delirium CONFUSION/DELIRIUM albuterol Adverse Reaction (Uncoded 04/26/19 07:35) Laryngospasms Medications to take at Discharge Atorvastatin Calcium [Lipitor] 40 mg PO QHS 03/05/18 Cetirizine HCl [All Day Allergy] 10 mg PO DAILY 03/05/18 Cholecalciferol (Vitamin D3) [Vitamin D3] 5,000 unit PO DAILY 03/05/18 Duloxetine HCl 60 mg PO DAILY 03/05/18 Febuxostat [Uloric] 80 mg PO DAILY 03/05/18 Fluticasone/Vilanterol [Breo Ellipta 200-25 Mcg INH] 1 puff IH DAILY 03/05/18 Levothyroxine [Synthroid] 100 mcg PO DAILY 03/05/18 Lidocaine [Lidoderm Patch] 1 patch TOPICAL DAILY 03/05/18 Montelukast Sodium [Singulair] 10 mg PO DAILY 03/05/18 Omeprazole [Prilosec] 40 mg PO DAILY 03/05/18 Potassium Citrate [Potassium Citrate ER] 15 meq PO DAILY 03/05/18 Sodium Chloride [Saline Nasal [place]] 1 spray NS Q2H PRN 03/05/18 metFORMIN HCl [Glucophage] 1,000 mg PO BIDCM 03/05/18 Buprenorphine 20 Mcg/Hr [Butrans 20 Mcg/Hr] 20 mcg TRANSDERM. SA 10/11/18 Gabapentin [Gralise] 600 mg PO TID 10/11/18 Linagliptin [Tradjenta] 5 mg PO DAILY 04/19/19 Liraglutide [Victoza] 18 mg IN DINNER 04/19/19 Orders to be completed after discharge: ,Urine Time Frame: 04/26/19, Facility: [facility], Location: Laboratory Primary Care Physician: Aron Palumbo MD [Primary Care Provider] - Please follow up with your Primary Care Physician in: one week Test Results: Test results from this visit will be discussed in further detail at your follow-up appointment, if applicable. Please Follow Up With: Parth Watkins MD When: one week to reschedule surgery Proposed Discharge Date: 04/27/19
--- NOTE | 2019-04-27 09:15 | DS.PCM_ITS ---
Discharge Date and Diagnosis Date of Admission: 04/26/19 Date of Discharge: 04/27/19 - Primary Discharge Diagnosis hypotension Katlyn - Secondary Discharge Diagnosis Chronic Problems (Last Updated 08/29/18 @ 09:06 by Deedee Newton) Smoker (Chronic) Intertrigo (Chronic) inframammary intertrigo Shoulder pain (Chronic) bilateral shoulder pain from shoulder grooving from the weight of her breasts on her bra straps Chronic thoracic back pain (Chronic) Chronic cervical pain (Chronic) Breast hypertrophy (Chronic) bilateral macromastia Cheek mass (Chronic) 7 mm chronically infected soft tissue mass left cheek. HLD (hyperlipidemia) (Chronic) Tobacco use (Chronic) Obesity (BMI 30-39.9) (Chronic) Morbid obesity (Chronic) Chronic low back pain (Chronic) COPD (chronic obstructive pulmonary disease) (Chronic) Hypertension (Chronic) Cervical cancer (Chronic) Hospital Course and Treatment Imaging Results: Interpretation Summary Normal LV size. Left ventricular systolic function is normal. The estimated ejection fraction is 60 %. Normal diastology for age. Pulmonary artery systolic pressure is 28 mmHg. critical care- DR Ramirez Operations: None Procedures: 2-D Echocardiogram Summary of Care Provided: The patient is a 48 year old F with an extensive past medical history as listed. She was admitted on 04/26/2019 from PACU on account of hypotension and subsequent shock. Patient had been scheduled to have elective bilateral breast reduction surgery by Dr. Watkins. During the preop., Patient became hypotensive, with BP in 50s systolic after she received a dose of 2 mg of Versed and 25 mg of fentanyl as well as Precedex. She was persistently hypotensive and not responding to ephedrine or and a dose of neosynephrine. Surgery was therefore aborted, and she was started on IVF. Hospitalist service was consulted to admit for hypotension. Patient was seen down in PACU. She was not responding to IVF, with BP being in 50s and 60s systolic. Patient states she had similar hypotension when she had a mass on her cheek excised some years ago. She was told after that surgery that she was coming out of general anesthesia, she was noted to be hypotensive. However she did not require admission at that time. She denied any lightheadedness or dizziness, palpitations, shortness of breath, chest pain, diarrhea or vomiting. Review of systems is otherwise negative. Patient is on Lasix for lower extremity swelling which was started by her PCP,but states she last took it on the night prior to admission the morning of admission. Patient states that the only meds she had taken in the morning of admission were her diabetes medication. Review of systems is otherwise negative. She denied any history of fever, chills, cough, lightheadedness or dizziness, palpitations, abdominal pain, diarrhea or vomiting prior to coming in for the surgery. Vitals were significant for blood pressure in the 60s systolic with pressure being 67/39 at time of review. Pulse was around 79. Pulse in PACU, patient was started on Bob-Synephrine drip by the peripheral line on account of hypotension of unknown etiology. She was admitted to ICU for further management. Turntable Engineer was consulted. Labs done also showed KATLYN with creatinine of 1.6 which was likely as a result of the hypotension therefore prerenal in etiology. She responded to fluids in [facility] ICU and neosynephrine was tapered off. She had 2D echo which showed EF of 60%, with normal LV size and systolic function, and normal diastology for age. Patient remained stable, and IVF was discontinued, with BP still remaining normal. Her BP meds (irbesartan) and lasix were discontinued at discharge. KATLYN had resolved at time of discharge with creatinine down to 1.15. She is to follow up with her PCP within one week. BP meds to be resumed on outpatient basis as deemed appropriate by PCP. SHe is also to follow up with DR Watkins for rescheduling of her breast reduction surgery. Patient seen and examined prior to discharge patient no complaints and felt well. Review of systems otherwise negative. Labs and vitals reviewed. Home medications reviewed and reconciled. o/e; Vital Signs Height 5 ft 5.5 in Weight: 206 lb 9.17 oz Weight in Pounds 206.6 lbs Pulse Ox 96 Temperature 97.7 F Pulse Rate 78 Respiratory Rate 19 Blood Pressure [BP] 112/74 Blood Pressure 110/73 Blood Pressure Position [BP] Sitting Blood Pressure Position Semi-Fowlers General: Alert, Oriented x3, Cooperative, No apparent distress HEENT: Atraumatic, PERRLA, EOMI, Normocephalic Oral: Dry Mucosa Neck: Supple, No JVD, Negative Carotid Bruits Lungs: Clear to auscultation, Normal air movement Cardiovascular: Regular rate, Regular Rhythm, Normal S1, Normal S2, No murmurs Abdomen: Bowel Sounds Present, Soft, Non Tender, Non-Distended, No Hepato- splenomegaly Extremities: No clubbing, No cyanosis, No edema, Capillary Refill Less than 3 Seconds Skin: No rashes, No breakdown Musculoskeletal: No Tenderness to Palpation of Joints or Extremities Lymphatic: No Cervical, Supraclavicular, or Inguinal Adenopathy Neurological: Cranial nerves II-XII grossly intact, Neuro grossly intact, Motor Exam 5/5 strength throughout Psych/Mental Status: Normal Affect, Appropriate, Alert and oriented to time, place, person, mood and affect Plan as above. Of note, patient improved much more rapidly than expected and she was discharged home on 04/27/2019. - Physical Exam Vital Signs Temp Pulse Resp BP Pulse Ox 97.5 F L 74 16 133/81 H 95 04/27/19 02:00 04/27/19 07:01 04/27/19 06:51 04/27/19 02:00 04/27/19 06:51 Oxygen Flow Rate (L/min) 2 Oxygen Delivery Method Room Air Weight: 206 lb 9.17 oz Body Mass Index (BMI) 33.5 Finger Stick Blood Glucose 366 Intake and Output for Last 24 Hours 04/25/19 04/26/19 04/27/19 23:59 23:59 23:59 Intake Total 5207 / 5657 850 / 850 Output Total 200 / 200 Balance 5007 / 5457 850 / 850 Laboratory Tests Past 24 Hrs 04/26/19 04/26/19 04/26/19 13:20 13:20 13:20 WBC Cancelled Corrected WBC Cancelled RBC Cancelled Hgb Cancelled Hct Cancelled MCV Cancelled MCH Cancelled MCHC Cancelled RDW Cancelled RDW Differential Cancelled Plt Count Cancelled MPV Cancelled Immature Gran % (Auto) Neut % (Auto) Lymph % (Auto) [place] % (Auto) Eos % (Auto) Baso % (Auto) Absolute Neuts (auto) Absolute Lymphs (auto) Total Counted Differential Comment Cancelled Diff Path Review Cancelled Sodium Cancelled Potassium Cancelled Chloride Cancelled Carbon Dioxide Cancelled Anion Gap Cancelled BUN Cancelled Creatinine Cancelled Estim Creat Clear Calc Cancelled Est GFR (MDRD) Af Amer Cancelled Est GFR (MDRD) Non-Af Cancelled BUN/Creatinine Ratio Cancelled Glucose Cancelled Calcium Cancelled Total Bilirubin Cancelled AST Cancelled ALT Cancelled Alkaline Phosphatase Cancelled Total Protein Cancelled Albumin Cancelled Globulin Cancelled Albumin/Globulin Ratio Cancelled Cortisol Cancelled 04/26/19 04/26/19 04/26/19 14:00 14:00 14:00 WBC 14.9 H Corrected WBC RBC 4.32 Hgb 13.1 Hct 38.7 MCV 89.6 MCH 30.3 MCHC 33.9 RDW 13.4 RDW Differential 43.6 Plt Count 302 MPV 9.6 Immature Gran % (Auto) Neut % (Auto) Lymph % (Auto) [place] % (Auto) Eos % (Auto) Baso % (Auto) Absolute Neuts (auto) Absolute Lymphs (auto) Total Counted Differential Comment Diff Path Review Sodium 138 Potassium 3.5 Chloride 109 H Carbon Dioxide 24.0 Anion Gap 5 BUN 18 Creatinine 1.60 H Estim Creat Clear Calc 38.27 Est GFR (MDRD) Af Amer 44 L Est GFR (MDRD) Non-Af 36 L BUN/Creatinine Ratio 11.2 Glucose 78 Calcium 8.4 L Total Bilirubin 0.40 AST 26 ALT 23 Alkaline Phosphatase 69 Total Protein 6.6 Albumin 3.2 Globulin 3.4 Albumin/Globulin Ratio 0.9 Cortisol 2.20 L 04/27/19 04/27/19 04:30 04:30 WBC 13.9 H Corrected WBC RBC 4.26 Hgb 13.1 Hct 38.5 MCV 90.4 MCH 30.8 MCHC 34.0 RDW 13.4 RDW Differential 43.9 Plt Count 265 MPV 9.3 Immature Gran % (Auto) 0.200 Neut % (Auto) 57.9 Lymph % (Auto) 36.0 [place] % (Auto) 5.1 Eos % (Auto) 0.7 Baso % (Auto) 0.1 Absolute Neuts (auto) 8.0 H Absolute Lymphs (auto) 5.00 H Total Counted Not Reportable Differential Comment Diff Path Review Sodium 142 Potassium 3.5 Chloride 108 H Carbon Dioxide 25.0 Anion Gap 9 BUN 14 Creatinine 1.15 H Estim Creat Clear Calc 53.25 Est GFR (MDRD) Af Amer 64 Est GFR (MDRD) Non-Af 53 L BUN/Creatinine Ratio 12.2 Glucose 96 Calcium 8.8 Total Bilirubin AST ALT Alkaline Phosphatase Total Protein Albumin Globulin Albumin/Globulin Ratio Cortisol POC Glucose 04/27/19 04/26/19 04/26/19 07:07 21:56 17:13 POC Glucose 111 H 99 109 04/26/19 04/26/19 12:30 12:00 POC Glucose 83 94 Discharge Diet: Low fat/ Low Cholesterol Discharge Activity: Return to Normal Activity Weight Bearing Status: Weight bearing as tolerated Call your doctor if you observe: Fever of 101 or Higher, Shortness of breath, Fainting spells Home Medications: Medications to take at Discharge Atorvastatin Calcium [Lipitor] 40 mg PO QHS 03/05/18 Cetirizine HCl [All Day Allergy] 10 mg PO DAILY 03/05/18 Cholecalciferol (Vitamin D3) [Vitamin D3] 5,000 unit PO DAILY 03/05/18 Duloxetine HCl 60 mg PO DAILY 03/05/18 Febuxostat [Uloric] 80 mg PO DAILY 03/05/18 Fluticasone/Vilanterol [Breo Ellipta 200-25 Mcg INH] 1 puff IH DAILY 03/05/18 Levothyroxine [Synthroid] 100 mcg PO DAILY 03/05/18 Lidocaine [Lidoderm Patch] 1 patch TOPICAL DAILY 03/05/18 Montelukast Sodium [Singulair] 10 mg PO DAILY 03/05/18 Omeprazole [Prilosec] 40 mg PO DAILY 03/05/18 Potassium Citrate [Potassium Citrate ER] 15 meq PO DAILY 03/05/18 Sodium Chloride [Saline Nasal [place]] 1 spray NS Q2H PRN 03/05/18 metFORMIN HCl [Glucophage] 1,000 mg PO BIDCM 03/05/18 Buprenorphine 20 Mcg/Hr [Butrans 20 Mcg/Hr] 20 mcg TRANSDERM. SA 10/11/18 Gabapentin [Gralise] 600 mg PO TID 10/11/18 Linagliptin [Tradjenta] 5 mg PO DAILY 04/19/19 Liraglutide [Victoza] 18 mg IN DINNER 04/19/19 Other Amb Orders: ,Urine Time Frame: 04/26/19, Facility: [facility], Location: Laboratory Primary Care Physician: Aron Palumbo MD [Primary Care Provider] - Please follow up with your Primary Care Physician in: one week Please Follow Up With: Parth Watkins MD When: one week to reschedule surgery Patient Instructions: Low Blood Pressure (Hypotension) Disposition: Home Minutes spent on discharge:: 35 Patient Condition:: Stable Medical Necessity - Tobacco Use Smoking Status: Current every day smoker Tobacco Use: Cigarettes Meaningful Use Info Meaningful Use Diagnoses (Choose all that apply): None applicable Code Visit Inpatient E&M: 14309 Disch Hosp
[2019-04-27] MEDS: DULoxetine Hcl 60 MG Capsule PO (09:56)
[2019-04-27] MEDS: Loratadine 10 MG Tablet PO (09:56)
[2019-04-27] MEDS: Gabapentin 600 MG Tablet PO (09:56)
[2019-04-27] MEDS: Pantoprazole Sodium 40 MG Tablet PO (09:56)
[2019-04-27] MEDS: LINAGLIPTIN 5 MG TABLET PO (09:57)
[2019-04-27] MEDS: Montelukast 10 MG Tablet PO (09:57)
[2019-04-27] MEDS: Febuxostat 40 MG TABLET 80 MG PO (09:57)
== END 2019-04-27 10:25 | disposition home or self-care (01) | DRG 315 ==
LOC: ICU 12:13 → SDC 13:11 → ICU 15:07
PROVIDERS: Anesthesiology; Admitting Provider Surgery; Family Provider Family Medicine; PCP Family Medicine; Referring Provider Surgery; Visit Provider Student in an Organized Health Care Education/Training Program
DX: I95.9 Hypotension, unspecified (principal); N17.9 Acute kidney failure, unspecified; N39.0 Urinary tract infection, site not specified; N62 Hypertrophy of breast; L30.4 Erythema intertrigo; I10 Essential (primary) hypertension; E11.9 Type 2 diabetes mellitus without complications; E03.9 Hypothyroidism, unspecified; K21.9 Gastro-esophageal reflux disease without esophagitis; J44.9 Chronic obstructive pulmonary disease, unspecified; E78.5 Hyperlipidemia, unspecified; G89.29 Other chronic pain; Z53.09 Procedure and treatment not carried out because of other contraindication; M54.5 Low back pain; Z79.84 Long term (current) use of oral hypoglycemic drugs; F17.210 Nicotine dependence, cigarettes, uncomplicated; E66.9 Obesity, unspecified; Z68.33 Body mass index [BMI] 33.0-33.9, adult; Z85.41 Personal history of malignant neoplasm of cervix uteri
CPT/HCPCS: 36415; 80048; 80053; 81025; 82533; 82962; 83036; 84443; 85025; 85027; 87086; 93005; 93306; 94640; 99406; J7050; J7120; Q9957; A4216; J2405; Q9968

== ENCOUNTER 2019-06-21 12:43 | Observation (INO) | payer MEDICARE, MEDICAID, SELFPAY ==
[2019-04-26 12:38] VITALS: BMI 33.5
--- NOTE | 2019-06-20 21:47 | HP.PCM_ITS ---
History and Physical Date of Admission: 06/21/19 HISTORY OF PRESENT ILLNESS 49 year old woman presents with complaints about her bilateral macromastia and associated painful symptomatology of neck pain, thoracic back pain, bilateral shoulder pain from shoulder grooving from the weight of her breasts on her bra straps, and inframammary intertrigo for which she uses powders for relief. She states she has had PT in the past with no relief in her breast symptomatology. She had a mammogram done on 03/02/19. It showed the breasts are almost entirely fatty. There are no dominant masses or suspicious calcifications. Stable small bilateral axillary lymph nodes. No other significant abnormalities are identified. She denies any family history of breast cancer. We have received medical approval for the breast reduction surgery from her insurance carrier. She presents today for a preop evaluation. She states she has quit smoking. PAST MEDICAL HISTORY Arthritis Asthma Back problem Diabetes GERD (gastroesophageal reflux disease) Gastric paresis IBS (irritable bowel syndrome) Kidney stones Migraines Sleep apnea in adult Thyroid disease COPD (chronic obstructive pulmonary disease) PAST SURGICAL HISTORY Carpal tunnel syndrome Cervical cancer Previous section gallbladder removal ALLERGIES codeine nabumetone [From Relafen] Sulfa (Sulfonamide Antibiotics) pregabalin [From Lyrica] albuterol MEDICATIONS Atorvastatin Calcium [Lipitor] Cetirizine HCl [All Day Allergy] Cholecalciferol (Vitamin D3) [Vitamin D3] Duloxetine HCl Febuxostat [Uloric] Fluticasone/Vilanterol [Breo Ellipta] Furosemide [Lasix] Irbesartan [Avapro] Levothyroxine [Synthroid] Lidocaine [Lidoderm Patch] Montelukast Sodium [Singulair] Omeprazole [Prilosec] Potassium Citrate [Potassium Citrate ER] Sodium Chloride [Saline Nasal [place]] metFORMIN HCl [Glucophage] Buprenorphine [Butrans] Gabapentin [Gralise] Linagliptin [Tradjenta] Liraglutide [Victoza] FAMILY HISTORY Mother - Cervical cancer Grandmother - Arthritis. Diabetes Grandfather - Bleeding disorder, Bowel disease, Heart disease Aunt - Throat cancer Father - Diabetes SOCIAL HISTORY Smoking Status: Current every day smoker alcohol intake: never substance use type: does not use REVIEW OF SYSTEMS General - Denies fever, fatigue, and weight loss. Eyes - Denies cataracts and glaucoma. ENT - Denies nasal congestion and sore throat. Endocrine - Denies excessive thirst and urination. Has thyroid disease. Skin - Denies skin cancer. Cystic lesion left cheek removed and healing well. Has inframammary intertrigo for which she uses powders for relief. Musculoskeletal - Denies joint pain, joint stiffness, weakness of muscles and joints, and arthritis. Has neck pain and thoracic back pain. Has bilateral shoulder pain from shoulder grooving from the weight of her breasts on her bra straps. Neuro - Has headaches. Cardiovascular - Denies chest pain, fatigue, and shortness of breath with exertion. Psych - Denies anxiety. Has depression. Respiratory - Denies chronic cough. Has shortness of breath. Has asthma. Patient is a smoker. Gastrointestinal - Denies nausea, vomiting, and constipation. Has some diarrhea. Hematologic - Denies abnormal bruising and bleeding. Genitourinary - Denies hematuria and urinary frequency. PHYSICAL EXAMINATION General - Alert and Oriented. Bra size is 44 DD. HEENT - PERRL. EOMI. Throat is clear. On the left cheek the scar has healed. Neck - Supple and nontender. No cervical adenopathy. No bony tenderness. Has pericervical soft tissue tenderness. Breasts - Bilateral macromastia with the left breast larger than the right breast. No breast masses palpable. No axillary adenopathy. Distance from midclavicular line on the left to the nipple is 34 cm and from the nipple to the inframammary fold is 10 cm. Distance from midclavicular line on the right to the nipple is 33 cm and from the nipple to the inframammary fold is 9 cm. The nipple areolar complex diameter is 8 cm bilaterally. Lungs - Clear to auscultation. Heart - Regular rate and rhythm. Abdomen - Soft and nondistended. Extremities - FROM. No axillary adenopathy. Radial pulses are palpable. Has bilateral shoulder tenderness from shoulder grooving from the weight of her breasts on her bra straps. Back - No bony tenderness. There is perivertebral soft tissue tenderness especially in the thoracic area. Neuro - CN II-XII grossly intact. Psych - Normal mood and affect. ASSESSMENT 1. Bilateral macromastia. 2. Neck pain. 3. Thoracic back pain. 4. Bilateral shoulder pain from shoulder grooving from the weight of the breasts on the bra straps. 5. Inframammary intertrigo. 6. Smoker. PLAN Discussed with the patient the procedure of breast reduction mammoplasty. I feel this procedure would be beneficial in this patient as it would help relieve her painful symptomatology. She recently had a mammogram on 03/02/19. It showed the breasts are almost entirely fatty. There are no dominant masses or suspicious calcifications. Stable small bilateral axillary lymph nodes. No other significant abnormalities are identified. With her large size and associated painful symptomatology, she would benefit from this surgery. I would remove about 500 grams of breast tissue per side, with more being taken from the left breast. Discussed the extent of the scarring. The biggest risk for wound healing issues is in the Tzone area. If it occurs, it requires wound care with Silver dressing changes and antibiotics if the culture is positive. Occasionally a skin graft may be necessary. She voices understanding. Discussed the range of what her size would be. Because she is DD cup, her range would be more likely a C cup. She voices understanding. Surgery would be under general anesthesia with a surgical observation overnight stay in the hospital. She will have drains in for a few days. Tissue that is removed will be sent to Pathology for analysis to rule out carcinoma. Her last recorded HgbA1c was 6.4 on 04/24/19. It is less than 8, so we can p roceed with the surgery. Patient will let us know when she wants to proceed. Patient was informed of the risks and complications of the procedure including alternatives to surgery. These were discussed with the patient personally. Patient voices understanding and wishes to proceed. Some of the risks and complications were included in a form from the [employer]. Encouraged patient to stop smoking as it may have deleterious effects on wound healing. She states she has quit smoking for the surgery.
[2019-06-21] VITALS (17 sets, daily range): BP systolic 87–120; BP diastolic 54–89; PULSE 84–103; RESP 16–18; TEMP 36.6–37.2; O2SAT 90–99; BMI 32.3
[2019-06-21 06:15] LABS: Bedside Glucose 156 mg/dL (70-110)
[2019-06-21] MEDS: Lactated Ringers 1,000 ML 100 ML IV ×2 (06:27→15:39)
[2019-06-21] MEDS: Cefazolin 2 GM in 0.9% Normal Saline 100 ML IV (07:28)
--- NOTE | 2019-06-21 07:30 | BR_PTH ---
PATIENT: GELY LACKEY LOC: [facility] U#:[id number] AGE/SX: 49/F ROOM: [facility]317 RE06/21/[address]: Dr. Parth Watkins MD : 1970 BED: 1 DIS: 06/22/2019 SPEC #: [id number] RECD: 06/21/19 14:25 STATUS: DANA KEISHA #: [id number] ALFREDO: 06/21/19 07:[address]: Parth Watkins DEPT: SURGICAL PATHOLOGY RECD BY: Lane Albright ENTERED: 06/24/19 08:37 SP TYPE: MAMOPLASTY OTHR DR: Dr. Aron Palumbo MD Tissues: A - Left breast, NOS B - Right breast, NOS Procedures: Surgery Specimen Level IV HEADER OPERATION: Breast reduction mammoplasty PRE-OP DIAGNOSIS: Bilateral macromastia, neck pain, thoracic back pain, bilateral shoulder pain, inframammary intertrigo TISSUE SUBMITTED: A. Left breast tissue, B. Right breast tissue MICROSCOPIC DIAGNOSIS A. Left breast, reduction mammoplasty: No pathologic change. B. Right breast, reduction mammoplasty: No pathologic change. AM:delaney 06/25/19 MICROSCOPIC DESCRIPTION Slides are reviewed. GROSS DESCRIPTION A - Received in fixative is one container labeled with the patient's name and designated left breast tissue. The specimen consists of multiple fragments of fibroadipose tissue weighing in aggregate 720 gm and measures in aggregate 26 x 19 x 7 cm. A few of the pieces also show gomez-white skin. No skin lesion is identified. A few of the detached pieces of skin are also noted. Sections reveal yellow adipose cut surfaces mixed with scant gomez-white fibrous area. No mass lesion is identified. Mumps Developer sections are submitted in six cassettes. Cassette 1 contains the skin piece. B - Received in fixative is one container labeled with the patient's name and designated right breast tissue. The specimen consists of multiple fragments of fibroadipose tissue weighing in aggregate 683 gm and measures in aggregate 22 x 20 x 6 cm. A few of the pieces also show gomez-white skin. No skin lesion is identified. A few of the detached pieces of skin are also noted. Sections reveal yellow adipose cut surfaces mixed with scant gomez-white fibrous area. No mass lesion is identified. Mumps Developer sections are submitted in six cassettes. Cassette 1 contains the skin piece. / SJ:delaney 06/24/19 TC: CPT: 11660 x2
--- NOTE | 2019-06-21 12:28 | OP.PCM_ITS ---
Report of Operation Date of Procedure: 06/21/19 Pre-Operative Diagnosis: 1. Bilateral macromastia. 2. Neck pain. 3. T horacic back pain. 4. Bilateral shoulder pain from shoulder grooving from the weight of the breasts on the bra straps. 5. Inframammary intertrigo. 6. Smoker, reportedly quit for the surgery. Post-Operative Diagnosis: Same. Surgery/Procedure Performed:: Bilateral breast reduction mammaplasty. Description of Surgical Findings:: 49 year old woman presents with complaints about her bilateral macromastia and associated painful symptomatology of neck pain, thoracic back pain, bilateral shoulder pain from shoulder grooving from the weight of her breasts on her bra straps, and inframammary intertrigo for which she uses powders for relief. She states she has had PT in the past with no relief in her breast symptomatology. She had a mammogram done on 03/02/19. It showed the breasts are almost entirely fatty. There are no dominant masses or suspicious calcifications. Stable small bilateral axillary lymph nodes. No other significant abnormalities are identified. She denies any family history of breast cancer. We have received medical approval for the breast reduction surgery from her insurance carrier. She presents today for a preop evaluation. She states she has quit smoking. Patient was informed of the risks and complications of the procedure including alternatives to surgery. These were discussed with the patient personally. Patient voices understanding and wishes to proceed. Some of the risks and complications were included in a form from the [employer]. IV Fluids - 2300 ml. Urine Output - 185 ml. Tissue removed from the left breast - 668 grams. Tissue removed from the right breast - 642 grams. I used Karen absorbable hemostat, (I used 4 vials, 2 in each breast). Reference Number - [id number]. Lot Number - [id number]. Expiration - November 12, 2023, (Left breast). Reference Number - [id number]. Lot Number - [id number]. Expiration - January 11, 2024, (3 vials, one in left breast and 2 in right breast). manager investigations: Missael Carter. Type of Anesthesia:: General Specimen's removed: 1. Left breast tissue to Pathology. 2. Right breast tissue to Pathology. Drains: Speedy drain x2 (one in each breast). Estimated Blood Loss (mL): 250 ml. Fluids Replaced: 2485 ml. (IV Fluids 2300 ml, Urine Output 185 ml). Description of Procedure: The patient was taken to the operating room and in the sitting position, preoperative markings were made. The sternum midline was marked down to the umbilicus. The inframammary folds were marked bilaterally. The midclavicular line was then marked down to the nipple, then from the nipple to the inframammary fold. The inframammary fold was then superimposed on the midclavicular line and I made a point 1 cm below that to be the new position of the nipple-areolar complex. 7 cm lines were then drawn divergent from that point to encompass the nipple-areolar complex. The distance between the divergent lines was 10 cm. The patient was then placed in the supine position and placed under general anesthesia and her breasts were prepped and draped in usual fashion. SCDs were placed for DVT prophylaxis. Perioperative antibiotics were given intravenously. A Herrera catheter was also placed. I then tattooed the preoperative markings with methylene blue and 25- gauge needle. I also tattooed the 12 o'clock position of the nipple-areolar complex to help with positioning of the nipple-areolar complex when it is brought through the keyhole incision at the end of the procedure to minimize kinking and twisting of the central breast mound pedicle. I then ramy straight lines down from the lines drawn divergent around the nipple-areolar complex down to the inframammary fold. The width of the pedicle is 10 cm. I then used a 42 mm circular template for a new size of the nipple-areolar complex. The central markings were infiltrated with Xylocaine and epinephrine. The central skin was then deepithelialized. I started on the right side first and then went to the left side. I then mobilized medial and lateral breast flaps at the level of Orion's fascia down to within a centimeter of the chest wall. This was met in the midline of the breast with dissection at the level of Orion's fascia down to within a centimeter of the chest wall. Once the central breast mound pedicle was from the skin envelope, the reduction was then begun. Most of the tissue was removed from the superior aspect of the breast and the lateral aspect of the breast. I then sutured the leading edge of the medial and lateral breast flaps to the midline of the inframammary fold with 2-0 Vicryl suture. The vertical incision was approximated using surgical clips. The excess tissue from the medial and lateral breast flaps were excised and the horizontal incision was approximated using surgical clips. The patient was then placed in a sitting position. Using a vertical limb length of 4.5 cm, I ramy the new position of the new nipple-areolar complexes on both breasts. They were in good position on the central aspect of the breast mound. Good symmetry was noted between the left breast and the right breast. Good shape and contour and projection was noted and appeared clinically to be at least a full B cup or a low C cup. The patient was then placed back in the supine position and the surgical clips were removed. The breast wounds were then irrigated with saline. Hemostasis was obtained using electrocautery. The tissue removed from the left breast was 668 grams. The tissue removed from the right breast was 642 grams. The tissue that was removed from the breasts was sent to Pathology for analysis to rule out carcinoma. After hemostasis was obtained using electrocautery, I then sprayed Karen absorbable hemostat into both breast wounds. I used two vials for each side. I then placed a size 15 Speedy drain into each breast wound to be brought through the lateral aspect of the horizontal incision. I then closed the breast wounds by first approximating the leading edge of the medial and lateral breast flaps to the midline of the inframammary fold with 2-0 Vicryl suture. The deep dermis and subcutaneous tissue of the vertical incision and the horizontal incisions were approximated using 3-0 Monocryl interrupted sutures. The horizontal incision was then approximated using 4-0 V-Loc unidirectional barbed running subcuticular suture. I also placed a few 4-0 Prolene vertical mattress interrupted sutures at the level of the Tzone. The vertical incision was then closed on the skin with 4-0 Prolene interrupted sutures. With a vertical limb length of 4.5 cm, I ramy a circular incision where the nipple-areolar complex would be brought through this keyhole incision. Incisions were made and the nipple areolar complex was brought through the keyhole incision. The 12 o'clock position of the nipple-areolar complex was lined up with the 12 o'clock position of the breast skin. The nipple-areolar complex was secured to the breast skin using 3-0 Monocryl interrupted sutures for deep dermis and subcutaneous tissue. The skin was approximated using 4-0 Prolene simple interrupted sutures. This was then covered with Histoacryl skin tissue adhesive. I sutured the drain to the skin using 3-0 nylon suture. At the end of the procedure, the breasts were soft and symmetrical with no evidence of vascular compromise. No evidence of hematomas were noted. The nipples were viable. I then dressed the breasts with a Kerlix gauze and a surgical bra. The patient tolerated the procedure well and will be sent to the recovery room in satisfactory condition. She will be admitted for surgical observation overnight stay. She will go home tomorrow once she is tolerating oral pain medication. I will remove the drains in a few days. She will be maintained on antibiotics until the drains are removed. She will keep her head elevated during the initial postoperative period. She will be maintained on a lifting restriction and keep her head elevated during the initial postoperative period. Postoperatively, she may get a compression sports bra as well. She will have the Herrera removed in the morning. She will be sent home on antibiotics and pain medicine for a few days. Sutures will be removed in 1-2 weeks. Grafts/Implants Used: None. - Complications None. - Admit VTE Documentation VTE Present on Admission: No VTE Mechan Device Prophylaxis: SCD's VTE Pharm Prophylaxis ordered?: Yes Code Visit Surgery Charges CPT - 22540-81 ICD-10 - N62, M54.2, M54.6, M25.519, L30.4, F17.200 67331 N62, M54.2, M54.6, M25.519, L30.4, F17.200
[2019-06-21] MEDS: HYDROmorphone 0.5 MG/0.5 ML SYRINGE IV ×2 (16:05→19:03)
[2019-06-21] MEDS: Cefazolin 1 GM/50 ML BAG IV ×2 (17:05→21:21)
[2019-06-21] MEDS: Gabapentin 600 MG Tablet PO ×2 (17:07→21:09)
[2019-06-21] MEDS: metFORMIN HCl 1,000 MG Tablet 1000 MG PO (17:07)
[2019-06-21] MEDS: oxyCODONE 5 MG Tablet 10 MG PO ×2 (17:11→21:21)
--- NOTE | 2019-06-21 19:28 | NURSING ---
pt home med victoza is in refrigerator in med room and home med breo ellipta is locked in med sinker winder room.
[2019-06-21] MEDS: Lidocaine 5% Patch 1 PATCH TOPICAL (21:09)
[2019-06-21] MEDS: Docusate Sodium 100 MG Capsule PO (21:09)
[2019-06-21] MEDS: Atorvastatin Calcium 40 MG Tablet PO (21:10)
[2019-06-21] MEDS: Hydrocortisone Sod Succinate 100 MG/2 ML Vial IV (21:11)
[2019-06-21 22:00] LABS: Bedside Glucose 68 mg/dL (70-110)
[2019-06-22] MEDS: Lactated Ringers 1,000 ML 100 ML IV ×2 (00:22→10:42)
[2019-06-22] MEDS: HYDROmorphone 0.5 MG/0.5 ML SYRINGE IV ×2 (00:27→06:16)
[2019-06-22 02:26] VITALS: BP 101/61; PULSE 99; RESP 16; TEMP 37.1; O2SAT 92
[2019-06-22] MEDS: oxyCODONE 5 MG Tablet 10 MG PO ×2 (02:30→08:17)
[2019-06-22] MEDS: Cefazolin 1 GM/50 ML BAG IV (06:06)
[2019-06-22] MEDS: Gabapentin 600 MG Tablet PO (06:08)
[2019-06-22] MEDS: Levothyroxine 100 MCG Tablet PO (06:08)
[2019-06-22] MEDS: Hydrocortisone Sod Succinate 100 MG/2 ML Vial IV (06:09)
[2019-06-22 06:23] LABS: Hemoglobin 9.6 g/dL (12.0-15.0); Mean Corp Hgb Conc 33.1 g/dL (32-36); Mean Corpuscular Hgb 30.9 pg (27.0-32.0); Mean Corpuscular Volume 93.2 fL (81-99); Mean Platelet Vol. 9.4 fl (6.2-12.0); Platelet Count 284 K/mm3 (150-450); RBC Distribution Width CV 13.4 % (11.6-14.6); RBC Distribution Width SD 45.7 fl (35.1-43.9); Red Blood Count 3.11 M/mm3 (4.2-5.4); White Blood Count 17.9 K/mm3 (4.4-11.0)
[2019-06-22 06:44] LABS: Anion Gap 7 (5-15); BUN 13 mg/dL (7-18); Calcium,Total 8.3 mg/dL (8.5-10.1); Chloride 111 mmol/L (98-107); Creatinine, Serum 0.93 mg/dL (0.55-1.02); EST Glomerular Filtration Rate 68 mL/min (>60); Est Glom Filt Rate - Afr Amer 83 mL/min (>60); Estimated Creatinine Clearance 65.12 ml/min; Glucose 121 mg/dL (74-106); Potassium 4.3 mmol/L (3.5-5.1); Prealbumin 17.8 mg/dL (20.0-40.0); Sodium Level 143 mmol/L (136-145)
[2019-06-22 08:01] VITALS: BP 95/61; PULSE 87; RESP 18; TEMP 37.1; O2SAT 93
[2019-06-22 08:25] LABS: Bedside Glucose 127 mg/dL (70-110)
[2019-06-22] MEDS: metFORMIN HCl 1,000 MG Tablet 1000 MG PO (08:58)
[2019-06-22] MEDS: DULoxetine Hcl 60 MG Capsule PO (08:59)
[2019-06-22] MEDS: FLUTICASONE/VILANTEROL 1 EACH BLST.W.DEV IH (08:59)
[2019-06-22] MEDS: Docusate Sodium 100 MG Capsule PO (08:59)
[2019-06-22] MEDS: Loratadine 10 MG Tablet PO (08:59)
[2019-06-22] MEDS: Pantoprazole Sodium 40 MG Tablet PO (09:00)
[2019-06-22] MEDS: Montelukast 10 MG Tablet PO (09:00)
[2019-06-22] MEDS: LINAGLIPTIN 5 MG TABLET PO (09:00)
[2019-06-22] MEDS: Febuxostat 40 MG TABLET 80 MG PO (09:00)
[2019-06-22 11:41] LABS: Bedside Glucose 283 mg/dL (70-110)
[2019-06-22 14:00] VITALS: BP 109/60; PULSE 102; RESP 18; TEMP 37.3; O2SAT 96
--- NOTE | 2019-06-22 14:04 | PCM.PN.SRG ---
Subjective: Postop #1 Patient is resting comfortably. - Physical Exam General: Alert, Oriented x3 HEENT: PERRLA, EOMI Oral: Moist Mucosa Neck: Supple Abdomen: Soft, Non-Distended Skin: Incision - Breast incisions are dry and intact. Breasts are soft and symmetrical. Nipples are viable. Mild bruising on skin flaps. Neurological: Cranial nerves II-XII grossly intact Psych/Mental Status: Normal Affect, Appropriate Vital Signs Temp Pulse Resp BP Pulse Ox 98.8 F 87 18 95/61 93 06/22/19 08:01 06/22/19 08:01 06/22/19 08:01 06/22/19 08:01 06/22/19 08:01 Oxygen Flow Rate (L/min) 2 Oxygen Delivery Method Nasal Cannula Weight: 194 lb 10.691 oz Body Mass Index (BMI) 32.3 Finger Stick Blood Glucose 366 Intake and Output for Last 24 Hours 06/20/19 06/21/19 06/22/19 23:59 23:59 23:59 Intake Total 2700.00 / 4000.00 5116.67 / 5116.67 Output Total 830 / 2195 3665 / 3665 Balance 1870.00 / 1805.00 1451.67 / 1451.67 Drainage 95 ml yesterday, 190 ml today. Laboratory Tests Past 24 Hrs 06/22/19 06/22/19 06:05 06:05 WBC 17.9 H RBC 3.11 L Hgb 9.6 L Hct 29.0 L MCV 93.2 MCH 30.9 MCHC 33.1 RDW Std Deviation 45.7 H RDW Coeff of Cipriano 13.4 Plt Count 284 MPV 9.4 Sodium 143 Potassium 4.3 Chloride 111 H Carbon Dioxide 25.0 Anion Gap 7 BUN 13 Creatinine 0.93 Estim Creat Clear Calc 65.12 Est GFR (MDRD) Af Amer 83 Est GFR (MDRD) Non-Af 68 BUN/Creatinine Ratio 14.0 Glucose 121 H Calcium 8.3 L Prealbumin 17.8 L POC Glucose 06/22/19 06/22/19 06/21/19 11:36 07:58 21:24 POC Glucose 283 H 127 H 68 L Medical Necessity - Tobacco Use Smoking Status: Current some day smoker Tobacco Use: Cigarettes Assessment/Plan All Active Problems (Last Updated 08/29/18 @ 09:06 by Deedee Newton) Encephalopathy acute (Acute) Acute cholecystitis (Resolved) Gallbladder rupture (Resolved) Respiratory failure (Resolved) Severe sepsis (Resolved) Surgical wound dehiscence (Resolved) Wound infection after surgery (Resolved) 1. Bilateral macromastia. 2. Neck pain. 3. Thoracic back pain. 4. Bilateral shoulder pain from shoulder grooving from the weight of the breasts on the bra straps. 5. Inframammary intertrigo. 6. Smoker, reportedly quit for the surgery. 7. s/p bilateral breast reduction mammaplasty. 8. Anemia of chronic disease, acute on chronic. Breasts are soft and symmetrical. Incisions are dry and intact. Nipples are viable. Tolerating po analgesia. Her WBC was elevated to 17. She was given steroids postoperatively. Prealbumin was 17.8. Encourage nutritional supplementation with protein to help the healing process. Her Hgb was 9.6. She has anemia of chronic disease. She had some operative blood loss of 250 ml. She also has some IV dilution postop with positive I's/O's of 3000 ml. There is no clinical evidence of hematoma. Will send her home on Iron supplementation. Discharge home today. Followup office Monday06/24/19 for drain removal. Keep head elevated. No heavy lifting. Hold off on showering until the drains are removed. Wrote script for Cefadroxil until the drains are removed. Wrote script for Percocet for pain (50 tabs).
--- NOTE | 2019-06-22 14:25 | DCINST_ITS ---
You will use the following diet at home:: No restrictions, Other - encourage nutritional supplementation with protein to help the healing process. Discharge Activity: May not drive while taking narcotic pain medications., May Not Shower - until the drains are removed., - - keep head elevated. no heavy lifting. May shower in (days): 3 - after the drains are removed. May resume sexual activity in: No Restrictions Weight Bearing Status: Weight bearing as tolerated Lifting Restrictions: 20 lbs. Keep extremity elevated above heart level: - - elevate head. Call your doctor if your incision/area has: Continuous Slow Oozing, Sudden Increased Bleeding, Increased Pain/ Swelling, Increased Redness, Foul Smelling Discharge, Swelling at the incision site Call your doctor if you observe: Fever of 101 or Higher, Coldness, Increased Pain, Shortness of breath, Chest pain, Calf discomfort, Uncontrolled pain Suture Line Care: - - dry dressings daily. Change Dressing in (Days):: 1 - dry dressings daily. Cleanse incision/area with: - - may get incisions wet in the shower after drains are removed. Drain: Suction - nicole drain x2 to bulb suction. empty and record drainage output daily. Allergies/Adverse Reactions: Allergies codeine Allergy (Verified 06/21/19 06:10) Rash nabumetone [From Relafen] Allergy (Verified 06/21/19 06:10) Rash Sulfa (Sulfonamide Antibiotics) Allergy (Verified 06/21/19 06:10) Rash pregabalin [From Lyrica] Adverse Reaction (Verified 06/21/19 06:10) confusion/delirium CONFUSION/DELIRIUM albuterol Adverse Reaction (Uncoded 06/21/19 06:10) Laryngospasms Medications to take at Discharge Atorvastatin Calcium [Lipitor] 40 mg PO QHS 03/05/18 Cetirizine HCl [All Day Allergy] 10 mg PO DAILY 03/05/18 Cholecalciferol (Vitamin D3) [Vitamin D3] 5,000 unit PO DAILY 03/05/18 Duloxetine HCl 60 mg PO DAILY 03/05/18 Febuxostat [Uloric] 80 mg PO DAILY 03/05/18 Fluticasone/Vilanterol [Breo Ellipta 200-25 Mcg INH] 1 puff IH DAILY 03/05/18 Lidocaine [Lidoderm Patch] 1 patch TOPICAL QHS 03/05/18 Montelukast Sodium [Singulair] 10 mg PO DAILY 03/05/18 Omeprazole [Prilosec] 40 mg PO DAILY 03/05/18 Potassium Citrate [Potassium Citrate ER] 15 meq PO DAILY PRN 03/05/18 Sodium Chloride [Saline Nasal [place]] 1 spray NS Q2H PRN 03/05/18 metFORMIN HCl [Glucophage] 1,000 mg PO BIDCM 03/05/18 Buprenorphine 20 Mcg/Hr [Butrans 20 Mcg/Hr] 20 mcg TRANSDERM. SA 10/11/18 Gabapentin [Gralise] 600 mg PO TID 10/11/18 Linagliptin [Tradjenta] 5 mg PO DAILY 04/19/19 Liraglutide [Victoza] 1.8 mg SQ DINNER 04/19/19 Levothyroxine [Synthroid] 100 mcg PO DAILY 06/14/19 Cefadroxil [Duricef] 500 mg PO BID #10 cap 06/22/19 Iron Poly/Vit C [Niferex-150] 150 mg PO DAILYCM #30 cap 06/22/19 Oxycodone HCl/Acetaminophen [Percocet 5/325] 1 - 2 tab PO 4X/DAY PRN PRN 7 Days #50 tab 06/22/19 The following prescriptions were given: Cefadroxil [Duricef] 500 mg PO BID #10 cap Prescription Printed Iron Poly/Vit C [Niferex-150] 150 mg PO DAILYCM #30 cap Prescription Printed Oxycodone HCl/Acetaminophen [Percocet 5/325] 1 - 2 tab PO 4X/DAY PRN PRN 7 Days #50 tab PRN Reason: Pain Prescription Printed Primary Care Physician: Aron Palumbo MD [Primary Care Provider] - Test Results: Test results from this visit will be discussed in further detail at your follow- up appointment, if applicable. Please Follow Up With: Parth Watkins MD When: monday06/24/19. Call [phone] for appt. Proposed Discharge Date: 06/22/19
[2019-06-22 15:00] VITALS: BP 109/60; PULSE 102; RESP 18; TEMP 37.3; O2SAT 96
== END 2019-06-22 15:03 | disposition home or self-care (01) ==
LOC: MS3 06-24 10:36 → SDC 06-24 10:36
PROVIDERS: Admitting Provider Surgery; Family Provider Family Medicine; PCP Family Medicine; Referring Provider Surgery; Visit Provider Surgery
PROC: 0H0U0ZZ Alteration of Left Breast, Open Approach (ICD-10-PCS; CPT 19318; principal; 2019-06-21 07:15)
DX: N62 Hypertrophy of breast (principal); M54.6 Pain in thoracic spine; M54.2 Cervicalgia; M25.512 Pain in left shoulder; M25.511 Pain in right shoulder; L30.4 Erythema intertrigo; E11.9 Type 2 diabetes mellitus without complications; K21.9 Gastro-esophageal reflux disease without esophagitis; G47.30 Sleep apnea, unspecified; J44.9 Chronic obstructive pulmonary disease, unspecified; D63.8 Anemia in other chronic diseases classified elsewhere; E03.9 Hypothyroidism, unspecified; F41.9 Anxiety disorder, unspecified; F32.9 Major depressive disorder, single episode, unspecified; K58.9 Irritable bowel syndrome, unspecified; M19.90 Unspecified osteoarthritis, unspecified site; Z79.899 Other long term (current) drug therapy; Z79.84 Long term (current) use of oral hypoglycemic drugs; Z87.891 Personal history of nicotine dependence
CPT/HCPCS: 19318; 36415; 80048; 82962; 84134; 85027; 88305; 96361; 96365; 96366; 96375; 96376; 99218; 99406; J7040; J7120; G0378; G0379; J2405; Q9968

== ENCOUNTER 2019-07-05 21:41 | Inpatient (IN) | payer MEDICARE, MEDICAID, SELFPAY ==
[2019-06-24 16:50] VITALS: BMI 32.3
[2019-07-05 21:42] VITALS: BP 134/73; PULSE 105; RESP 16; TEMP 36.8; O2SAT 100; BMI 30.9
--- NOTE | 2019-07-05 23:05 | ED.DCSUM_ITS ---
History of Present Illness Chief Complaint: Wound Check Narrative: This patient is a 49-year-old female who presents for wound check. She is 2 weeks postop from a bilateral breast reduction. She has had her drains out. She has been doing well. She has had some drainage from the wound since surgery however since last night this is increased and she states her wound did not look good today. It is not hot to the touch. She denies systemic symptoms such as fevers nausea vomiting. She is diabetic. Past Medical History - Allergies and Home Meds Allergies/Adverse Reactions: Allergies codeine Allergy (Verified 07/05/19 21:45) Rash nabumetone [From Relafen] Allergy (Verified 07/05/19 21:45) Rash Sulfa (Sulfonamide Antibiotics) Allergy (Verified 07/05/19 21:45) Rash pregabalin [From Lyrica] Adverse Reaction (Verified 07/05/19 21:45) confusion/delirium CONFUSION/DELIRIUM albuterol Adverse Reaction (Uncoded 07/05/19 21:45) Laryngospasms Primary Care Physician: Aron Palumbo MD [Primary Care Provider] - Past Medical History: - - Diabetes, hypothyroidism, hyperlipidemia Surgical History: - - Carpal tunnel release, ?2, cholecystectomy. Smoking Status: Current some day smoker - Family History Maternal Family History: Family History (Last Reviewed 06/24/19 @ 16:39 by Deedee Newton) Mother Cervical cancer Grandmother Arthritis Diabetes Grandfather Bleeding disorder Bowel disease Heart disease Aunt Throat cancer Father Diabetes Family History: Reports: Diabetes Paternal Family History: Family History (Last Reviewed 06/24/19 @ 16:39 by Deedee Newton) Mother Cervical cancer Grandmother Arthritis Diabetes Grandfather Bleeding disorder Bowel disease Heart disease Aunt Throat cancer Father Diabetes Family History: Reports: No pertinent history Review of Systems All systems negative except as indicated General: Denies: Fever Cardiovascular: Denies: Chest pain Respiratory: Denies: Dyspnea Gastrointestinal: Denies: Nausea, Vomiting Skin: Reports: Wounds Physical Exam Vital Signs/Narrative: Vital Signs Temp Pulse Resp BP Pulse Ox 07/05/19 21:42 98.2 F 105 H 16 134/73 H 100 Inital Vital Signs reviewed: Yes General: Well nourished, Well developed Head: Normocephalic Eyes: EOMI ENT: Moist mucous membranes Neck: Supple Cardiovascular: - - Heart is regular rhythm, slightly tachycardic Respiratory: No distress, CTA bilaterally, - - Bilateral breast surgical wounds there is some erythema along the lower surgical wounds on both sides on the right breast there is a 3 x 4 cm area of dry necrosis/open wound as well as an area of developing necrosis lateral to this Abdomen: Soft Skin: Normal color Neurological: Alert Psychological: Normal affect Diagnostic/Tx/Re-eval Laboratory Results 07/05/19 07/05/19 07/05/19 23:12 23:12 23:50 WBC 20.3 H RBC 3.73 L Hgb 11.2 L Hct 34.3 L MCV 92.0 MCH 30.0 MCHC 32.7 RDW Std Deviation 47.2 H RDW Coeff of Cipriano 14.0 Plt Count 562 H MPV 8.6 Immature Gran % (Auto) 0.600 Neut % (Auto) 72.7 H Lymph % (Auto) 22.7 [place] % (Auto) 3.6 Eos % (Auto) 0.2 Baso % (Auto) 0.2 Absolute Neuts (auto) 14.7 H Absolute Lymphs (auto) 4.60 H Nucleated RBC % 0 Sodium 139 Potassium 3.7 Chloride 109 H Carbon Dioxide 24.0 Anion Gap 6 BUN 13 Creatinine 0.93 Estim Creat Clear Calc 65.12 Est GFR (MDRD) Af Amer 82 Est GFR (MDRD) Non-Af 68 BUN/Creatinine Ratio 14.0 Glucose 220 H Lactic Acid 1.6 Calcium 9.0 - Medical Decision Making Patient had IV Zosyn ordered on initial presentation. Laboratory studies as above notable for white blood cell count of 20,000. At this point I did add on lactic acid and blood. Lactic acid is normal. I spoke to Dr. Watkins who agrees to admit for further management and IV antibiotics. I also gave IV vancomycin. Patient admitted. ED Disposition - Plan for ED Patient: Disposition: Acute Care Hospital [facility] Diagnosis: Wound infection Referrals: Aron Palumbo MD [Primary Care Provider] -
[2019-07-05 23:19] LABS: Absolute Neutrophil Count 14.7 X10^3/uL (2.0-7.7); Basophil# 0.05 X10^3/uL; Basophil% 0.2 % (0-1); Eosinophil# 0.04 X10^3/uL; Eosinophils% 0.2 % (0-5); Hematocrit 34.3 % (37-47); Hemoglobin 11.2 g/dL (12.0-15.0); Lymphocyte % 22.7 % (19-41); Mean Corp Hgb Conc 32.7 g/dL (32-36); Mean Platelet Vol. 8.6 fl (6.2-12.0); Monocyte# 0.72 X10^3/uL; Monocyte% 3.6 % (0-10); NRBC Flagged by Analyzer 0 % (0-5); Neutrophil # 14.74 X10^3/uL (2.7-7.7); Neutrophil % 72.7 % (47-70); Platelet Count 562 K/mm3 (150-450); RBC Distribution Width SD 47.2 fl (35.1-43.9); Red Blood Count 3.73 M/mm3 (4.2-5.4); White Blood Count 20.3 K/mm3 (4.4-11.0)
[2019-07-05] MEDS: 0.9% Normal Saline 1,000 ML 999 ML IV (23:27)
[2019-07-05] MEDS: Ketorolac 30 MG/ML Syringe IV (23:28)
[2019-07-05 23:31] LABS: Anion Gap 6 (5-15); BUN 13 mg/dL (7-18); Chloride 109 mmol/L (98-107); Creatinine, Serum 0.93 mg/dL (0.55-1.02); EST Glomerular Filtration Rate 68 mL/min (>60); Est Glom Filt Rate - Afr Amer 82 mL/min (>60); Estimated Creatinine Clearance 65.12 ml/min; Glucose 220 mg/dL (74-106); Potassium 3.7 mmol/L (3.5-5.1); Sodium Level 139 mmol/L (136-145)
[2019-07-05 23:42] VITALS: BP 127/78; PULSE 72; RESP 15; TEMP 36.8; O2SAT 100
[2019-07-05 23:45] VITALS: BP 127/78; PULSE 72; RESP 15; TEMP 36.8; O2SAT 100
[2019-07-06 00:24] LABS: Lactic Acid 1.6 mmol/L (0.4-2.0)
[2019-07-06] MEDS: Ondansetron 4 MG/2 ML Vial IV (00:41)
[2019-07-06] MEDS: Morphine 4 MG/ML Syringe IV (00:42)
--- NOTE | 2019-07-06 01:25 | HP.PCM_ITS ---
History and Physical Date of Admission: 07/06/19 Date of Admission: 06/21/19 HISTORY OF PRESENT ILLNESS 49 year old woman presents with complaints about her bilateral macromastia and associated painful symptomatology of neck pain, thoracic back pain, bilateral shoulder pain from shoulder grooving from the weight of her breasts on her bra straps, and inframammary intertrigo for which she uses powders for relief. She states she has had PT in the past with no relief in her breast symptomatology. She had a mammogram done on 03/02/19. It showed the breasts are almost entirely fatty. There are no dominant masses or suspicious calcifications. Stable small bilateral axillary lymph nodes. No other significant abnormalities are identified. She denies any family history of breast cancer. We have received medical approval for the breast reduction surgery from her insurance carrier. She presents today for a preop evaluation. She states she has quit smoking. PAST MEDICAL HISTORY Arthritis Asthma Back problem Diabetes GERD (gastroesophageal reflux disease) Gastric paresis IBS (irritable bowel syndrome) Kidney stones Migraines Sleep apnea in adult Thyroid disease COPD (chronic obstructive pulmonary disease) PAST SURGICAL HISTORY Carpal tunnel syndrome Cervical cancer Previous section gallbladder removal ALLERGIES codeine nabumetone [From Relafen] Sulfa (Sulfonamide Antibiotics) pregabalin [From Lyrica] albuterol MEDICATIONS Atorvastatin Calcium [Lipitor] Cetirizine HCl [All Day Allergy] Cholecalciferol (Vitamin D3) [Vitamin D3] Duloxetine HCl Febuxostat [Uloric] Fluticasone/Vilanterol [Breo Ellipta] Furosemide [Lasix] Irbesartan [Avapro] Levothyroxine [Synthroid] Lidocaine [Lidoderm Patch] Montelukast Sodium [Singulair] Omeprazole [Prilosec] Potassium Citrate [Potassium Citrate ER] Sodium Chloride [Saline Nasal [place]] metFORMIN HCl [Glucophage] Buprenorphine [Butrans] Gabapentin [Gralise] Linagliptin [Tradjenta] Liraglutide [Victoza] FAMILY HISTORY Mother - Cervical cancer Grandmother - Arthritis. Diabetes Grandfather - Bleeding disorder, Bowel disease, Heart disease Aunt - Throat cancer Father - Diabetes SOCIAL HISTORY Smoking Status: Current every day smoker alcohol intake: never substance use type: does not use REVIEW OF SYSTEMS General - Denies fever, fatigue, and weight loss. Eyes - Denies cataracts and glaucoma. ENT - Denies nasal congestion and sore throat. Endocrine - Denies excessive thirst and urination. Has thyroid disease. Skin - Denies skin cancer. Cystic lesion left cheek removed and healing well. Has inframammary intertrigo for which she uses powders for relief. Musculoskeletal - Denies joint pain, joint stiffness, weakness of muscles and joints, and arthritis. Has neck pain and thoracic back pain. Has bilateral shoulder pain from shoulder grooving from the weight of her breasts on her bra straps. Neuro - Has headaches. Cardiovascular - Denies chest pain, fatigue, and shortness of breath with exertion. Psych - Denies anxiety. Has depression. Respiratory - Denies chronic cough. Has shortness of breath. Has asthma. Kanwal vines is a smoker. Gastrointestinal - Denies nausea, vomiting, and constipation. Has some diarrhea. Hematologic - Denies abnormal bruising and bleeding. Genitourinary - Denies hematuria and urinary frequency. PHYSICAL EXAMINATION General - Alert and Oriented. Bra size is 44 DD. HEENT - PERRL. EOMI. Throat is clear. On the left cheek the scar has healed. Neck - Supple and nontender. No cervical adenopathy. No bony tenderness. Has pericervical soft tissue tenderness. Breasts - Bilateral macromastia with the left breast larger than the right breast. No breast masses palpable. No axillary adenopathy. Distance from midclavicular line on the left to the nipple is 34 cm and from the nipple to the inframammary fold is 10 cm. Distance from midclavicular line on the right to the nipple is 33 cm and from the nipple to the inframammary fold is 9 cm. The nipple areolar complex diameter is 8 cm bilaterally. Lungs - Clear to auscultation. Heart - Regular rate and rhythm. Abdomen - Soft and nondistended. Extremities - FROM. No axillary adenopathy. Radial pulses are palpable. Has bilateral shoulder tenderness from shoulder grooving from the weight of her breasts on her bra straps. Back - No bony tenderness. There is perivertebral soft tissue tenderness especially in the thoracic area. Neuro - CN II-XII grossly intact. Psych - Normal mood and affect. ASSESSMENT 1. Bilateral macromastia. 2. Neck pain. 3. Thoracic back pain. 4. Bilateral shoulder pain from shoulder grooving from the weight of the breasts on the bra straps. 5. Inframammary intertrigo. 6. Smoker. PLAN Discussed with the patient the procedure of breast reduction mammoplasty. I feel this procedure would be beneficial in this patient as it would help relieve her painful symptomatology. She recently had a mammogram on 03/02/19. It showed the breasts are almost entirely fatty. There are no dominant masses or suspicious calcifications. Stable small bilateral axillary lymph nodes. No other significant abnormalities are identified. With her large size and associated painful symptomatology, she would benefit from this surgery. I would remove about 500 grams of breast tissue per side, with more being taken from the left breast. Discussed the extent of the scarring. The biggest risk for wound healing issues is in the Tzone area. If it occurs, it requires wound care with Silver dressing changes and antibiotics if the culture is positive. Occasionally a skin graft may be necessary. She voices understanding. Discussed the range of what her size would be. Because she is DD cup, her range would be more likely a C cup. She voices understanding. Surgery would be under general anesthesia with a surgical observation overnight stay in the hospital. She will have drains in for a few days. Tissue that is removed will be sent to Pathology for analysis to rule out carcinoma. Her last recorded HgbA1c was 6.4 on 04/24/19. It is less than 8, so we can proceed with the surgery. Patient will let us know when she wants to proceed. Patient was informed of the risks and complications of the procedure including alternatives to surgery. These were discussed with the patient personally. Patient voices understanding and wishes to proceed. Some of the risks and complications were included in a form from the [place] [employer]. Encouraged patient to stop smoking as it may have deleterious effects on wound healing. She states she has quit smoking for the surgery.
[2019-07-06 01:51] VITALS: BMI 31.4
[2019-07-06 01:57] VITALS: BMI 31.4
[2019-07-06 02:24] VITALS: BP 124/73; PULSE 71; RESP 16; TEMP 36.5; O2SAT 99
[2019-07-06] MEDS: oxyCODONE 5 MG Tablet 10 MG PO ×4 (03:08→17:23)
[2019-07-06] MEDS: 0.9% NaCl Peripheral Flush Adult/Peds IV ×3 (03:08→15:28)
--- NOTE | 2019-07-06 03:19 | PCM.RX.CS ---
Consult Pharmacy has been consulted to manage selected antiobiotic: Vancomycin Type of Consult: New start Suspected Infection: Skin/Soft tissue Prior Doses of Antibiotics Received/Current Regimen: Medications Vancomycin HCl 750 mg/ Sodium (Chloride) 265 mls @ 250 mls/hr IV Q12H EVELIN to begin 07/06/19 1300 Discontinued Medications Vancomycin HCl 1,250 mg/ (Dextrose) 275 mls @ 250 mls/hr IV X1 ONE Stop: 07/06/19 01:20 Last Admin: 07/06/19 02:40 Dose: Infused Documented by: Labs: Sodium 139 mmol/L (136-145) 07/05/19 23:12 Potassium 3.7 mmol/L (3.5-5.1) 07/05/19 23:12 Chloride 109 mmol/L (98-107) H 07/05/19 23:12 Carbon Dioxide 24.0 mmol/L (21.0-32.0) 07/05/19 23:12 Anion Gap 6 (5-15) 07/05/19 23:12 BUN 13 mg/dL (7-18) 07/05/19 23:12 Creatinine 0.93 mg/dL (0.55-1.02) 07/05/19 23:12 Est GFR (MDRD) Af Amer 82 mL/min (>60) 07/05/19 23:12 Est GFR (MDRD) Non-Af 68 mL/min (>60) 07/05/19 23:12 BUN/Creatinine Ratio 14.0 RATIO (10-20) 07/05/19 23:12 Glucose 220 mg/dL (74-106) H 07/05/19 23:12 Weight used for dosin.7 kg Estimated Creatinine Clearance: 65.12 Goal Trough: 10-15 mcg/mL Pharmacy Plan for Drug Dosing: Pharmacy Service will continue to monitor and adjust dosing as required. Vancomycin 750mg IV q12h will begin 07/06/19 at 1300 per moderate dosing regimen. Follow-Up Labs: Trough Vancomycin - before 4th dose Labs to be done on [date and time ordered]: 07/07/19 1230 before 4th dose
[2019-07-06] MEDS: 0.9% NaCl IVPB Med Flush (250 mL) 15 ML IV (05:56)
[2019-07-06 06:32] LABS: Hematocrit 31.2 % (37-47); Mean Corp Hgb Conc 32.1 g/dL (32-36); Mean Corpuscular Hgb 29.7 pg (27.0-32.0); Mean Corpuscular Volume 92.6 fL (81-99); Mean Platelet Vol. 8.6 fl (6.2-12.0); Platelet Count 492 K/mm3 (150-450); RBC Distribution Width SD 47.5 fl (35.1-43.9); Red Blood Count 3.37 M/mm3 (4.2-5.4); White Blood Count 17.5 K/mm3 (4.4-11.0)
[2019-07-06 07:02] LABS: ALB/GLOB Ratio 0.6 RATIO (0.9-2.4); AST(SGOT) 19 U/L (15-37); Alanine Aminotransfer ALT/SGPT 15 U/L (13-56); Albumin, Serum 2.6 g/dL (3.2-5.0); Alkaline Phosphatase 78 U/L (45-117); Anion Gap 11 (5-15); BUN 14 mg/dL (7-18); BUN/Creat Ratio 16.1 RATIO (10-20); Calcium,Total 8.4 mg/dL (8.5-10.1); Chloride 111 mmol/L (98-107); Creatinine, Serum 0.87 mg/dL (0.55-1.02); EST Glomerular Filtration Rate 73 mL/min (>60); Est Glom Filt Rate - Afr Amer 89 mL/min (>60); Estimated Creatinine Clearance 69.61 ml/min; Glucose 103 mg/dL (74-106); Potassium 3.6 mmol/L (3.5-5.1); Protein, Total 6.6 g/dL (6.4-8.2); Sodium Level 142 mmol/L (136-145)
[2019-07-06 07:04] LABS: Erythrocyte Sedimentation Rate 95 mm/hr (0-30)
[2019-07-06] MEDS: Glucerna Shake 120 ML LIQUID PO ×4 (09:13→20:55)
[2019-07-06] MEDS: Docusate Sodium 100 MG Capsule PO (09:14)
[2019-07-06 09:26] VITALS: BP 118/76; PULSE 73; RESP 18; TEMP 37; O2SAT 99
--- NOTE | 2019-07-06 10:19 | CM.UR ---
RN CM Assessment Introduced role of RN CM to patient. Patient is alert and able to participate in RN CM Assessment. Care providers, pharmacy, and demographics verified. No family at bedside. Presentation: presented to ER stating wound doesn't look good from previous breast reduction. Admit Dx: Breast wound infection. Re-Admit: no Barriers/Issues: None noted PCP: Dr. Aron Palumbo Specialists: States Dr. Zamudio, pain mgmt. [facility] Insurance: Robert RICHARDS and [employer] Rx Benefit: Yes. States $5100 deductible that she meets quickly then no copays. Currently no copays. LNOK: Milad Black (Significant Other). LW/HPOA: None. Denies information at this time. Living Arrangements: 3 story home ADL?s: independent Transportation: self DME: Straight cane DME co: no preference HHC: Previously with [facility] for wound vac care on abd. SNF: None Goal: Home. States her and S.O. can do wound care as ordered. DC PLAN: Home, HOLLIE Escalera RN, CCM.
--- NOTE | 2019-07-06 11:08 | PN.SURG_ITS ---
Patient Problems: Active and Suspected Problems (Last Reviewed 06/24/19 @ 16:39 by Deedee Newton) Wound infection (Acute) Subjective: Postop #15 Patient is resting comfortably. - Physical Exam General: Alert, Oriented x3 HEENT: PERRLA, EOMI Oral: Moist Mucosa Neck: Supple Abdomen: Soft, Non-Distended Skin: Incision - Breast incisions are dry and intact. Nipples are viable. Breasts are soft and symmetrical. Small amount of skin compromise on the right breast at the Tzone. The area is dry and nontender. Could not express any fluid at this time. Neurological: Cranial nerves II-XII grossly intact Psych/Mental Status: Normal Affect, Appropriate Vital Signs Temp Pulse Resp BP Pulse Ox 98.6 F 73 18 118/76 99 07/06/19 09:26 07/06/19 09:26 07/06/19 09:26 07/06/19 09:26 07/06/19 09:26 Oxygen Delivery Method Room Air Weight: 188 lb 14.978 oz Body Mass Index (BMI) 31.4 Finger Stick Blood Glucose 366 Intake and Output for Last 24 Hours 07/04/19 07/05/19 07/06/19 23:59 23:59 23:59 Intake Total 1475.25 / 1475.25 Balance 1475.25 / 1475.25 Laboratory Tests Past 24 Hrs 07/05/19 07/05/19 07/05/19 23:12 23:12 23:50 WBC 20.3 H RBC 3.73 L Hgb 11.2 L Hct 34.3 L MCV 92.0 MCH 30.0 MCHC 32.7 RDW Std Deviation 47.2 H RDW Coeff of Cipriano 14.0 Plt Count 562 H MPV 8.6 Immature Gran % (Auto) 0.600 Neut % (Auto) 72.7 H Lymph % (Auto) 22.7 [place] % (Auto) 3.6 Eos % (Auto) 0.2 Baso % (Auto) 0.2 Absolute Neuts (auto) 14.7 H Absolute Lymphs (auto) 4.60 H Nucleated RBC % 0 ESR Sodium 139 Potassium 3.7 Chloride 109 H Carbon Dioxide 24.0 Anion Gap 6 BUN 13 Creatinine 0.93 Estim Creat Clear Calc 65.12 Est GFR (MDRD) Af Amer 82 Est GFR (MDRD) Non-Af 68 BUN/Creatinine Ratio 14.0 Glucose 220 H Lactic Acid 1.6 Calcium 9.0 Total Bilirubin AST ALT Alkaline Phosphatase C-React Prot Ext Range Total Protein Albumin Globulin Albumin/Globulin Ratio 07/06/19 07/06/19 06:02 06:02 WBC 17.5 H RBC 3.37 L Hgb 10.0 L Hct 31.2 L MCV 92.6 MCH 29.7 MCHC 32.1 RDW Std Deviation 47.5 H RDW Coeff of Cipriano 14.0 Plt Count 492 H MPV 8.6 Immature Gran % (Auto) Neut % (Auto) Lymph % (Auto) [place] % (Auto) Eos % (Auto) Baso % (Auto) Absolute Neuts (auto) Absolute Lymphs (auto) Nucleated RBC % ESR 95 H Sodium 142 Potassium 3.6 Chloride 111 H Carbon Dioxide 20.0 L Anion Gap 11 BUN 14 Creatinine 0.87 Estim Creat Clear Calc 69.61 Est GFR (MDRD) Af Amer 89 Est GFR (MDRD) Non-Af 73 BUN/Creatinine Ratio 16.1 Glucose 103 Lactic Acid Calcium 8.4 L Total Bilirubin 0.20 AST 19 ALT 15 Alkaline Phosphatase 78 C-React Prot Ext Range 10.20 H Total Protein 6.6 Albumin 2.6 L Globulin 4.0 Albumin/Globulin Ratio 0.6 L Medical Necessity - Tobacco Use Smoking Status: Former smoker Assessment/Plan All Active Problems (Last Reviewed 06/24/19 @ 16:39 by Deedee Newton) Wound infection (Acute) Encephalopathy acute (Acute) Acute cholecystitis (Resolved) Gallbladder rupture (Resolved) Respiratory failure (Resolved) Severe sepsis (Resolved) Surgical wound dehiscence (Resolved) Wound infection after surgery (Resolved) 1. Bilateral macromastia. 2. Neck pain. 3. Thoracic back pain. 4. Bilateral shoulder pain from shoulder grooving from the weight of the breasts on the bra straps. 5. Inframammary intertrigo. 6. Smoker, reportedly quit for the surgery. 7. s/p bilateral breast reduction mammaplasty. 8. Bilateral breast cellulitis. 9. Mild skin compromise right breast at Tzone. Continue Vancomycin and Zosyn. Thus far the breasts appear to be improving. Less redness noted. Incisions are dry. No drainage expressed from the breasts. WBC has improved from 20.3 to 17.5. Will recheck again tomorrow. As long as the WBC continues to improve and the redness improves, may consider stopping IV antibiotics and changing to po antibiotics at discharge. Because she is diabetic, I will decide tomorrow about continuing the IV antibiotics versus changing to po antibiotics. 'If drainage is seen, will send a wound culture at that time and start silver dressing changes. No need for silver dressing at this time as the incisions are dry. Once the area of skin compromise at the Tzone right breast starts to demarcate with a dry eschar, will sharply debride to aid in wound care with silver dressing changes.
[2019-07-06] MEDS: diazePAM 5 MG Tablet PO (15:28)
[2019-07-06] MEDS: HYDROmorphone 1 MG/ML Syringe IV ×2 (15:28→20:44)
[2019-07-06 15:34] VITALS: BP 122/71; PULSE 78; RESP 18; TEMP 36.6; O2SAT 99
[2019-07-06] MEDS: Lidocaine 5% Patch 2 PATCH TOPICAL (20:52)
[2019-07-06] MEDS: Gabapentin 600 MG Tablet PO (20:53)
[2019-07-06] MEDS: Atorvastatin Calcium 40 MG Tablet PO (20:53)
[2019-07-06 21:15] VITALS: BP 141/68; PULSE 71; RESP 16; TEMP 36.7; O2SAT 95
[2019-07-06 22:10] LABS: Bedside Glucose 51 mg/dL (70-110)
[2019-07-06 22:10] LABS: Bedside Glucose 72 mg/dL (70-110)
[2019-07-07] MEDS: oxyCODONE 5 MG Tablet 10 MG PO (01:26)
[2019-07-07 03:15] VITALS: BP 131/63; PULSE 86; RESP 16; TEMP 37; O2SAT 96
[2019-07-07] MEDS: Gabapentin 600 MG Tablet PO ×3 (05:46→22:07)
[2019-07-07] MEDS: Levothyroxine 100 MCG Tablet PO (05:46)
[2019-07-07] MEDS: HYDROmorphone 1 MG/ML Syringe IV ×3 (05:49→20:34)
[2019-07-07 06:19] LABS: Hematocrit 34.6 % (37-47); Hemoglobin 11.4 g/dL (12.0-15.0); Mean Corp Hgb Conc 32.9 g/dL (32-36); Mean Corpuscular Hgb 30.4 pg (27.0-32.0); Mean Corpuscular Volume 92.3 fL (81-99); Mean Platelet Vol. 8.7 fl (6.2-12.0); Platelet Count 513 K/mm3 (150-450); RBC Distribution Width CV 13.6 % (11.6-14.6); RBC Distribution Width SD 46.1 fl (35.1-43.9); Red Blood Count 3.75 M/mm3 (4.2-5.4); White Blood Count 14.6 K/mm3 (4.4-11.0)
[2019-07-07 06:59] LABS: Anion Gap 9 (5-15); BUN 16 mg/dL (7-18); BUN/Creat Ratio 21.2 RATIO (10-20); Calcium,Total 8.8 mg/dL (8.5-10.1); Chloride 108 mmol/L (98-107); Creatinine, Serum 0.76 mg/dL (0.55-1.02); EST Glomerular Filtration Rate 86 mL/min (>60); Est Glom Filt Rate - Afr Amer 104 mL/min (>60); Estimated Creatinine Clearance 79.69 ml/min; Glucose 90 mg/dL (74-106); Potassium 4.1 mmol/L (3.5-5.1); Sodium Level 140 mmol/L (136-145)
[2019-07-07 08:18] VITALS: BP 145/91; PULSE 86; RESP 18; TEMP 37.2; O2SAT 96
[2019-07-07] MEDS: Iron Polysaccharide Complex 150 MG CAPSULE PO (08:22)
[2019-07-07] MEDS: DULoxetine Hcl 60 MG Capsule PO (08:22)
[2019-07-07] MEDS: Pantoprazole Sodium 40 MG Tablet PO (08:22)
[2019-07-07] MEDS: Loratadine 10 MG Tablet PO (08:22)
[2019-07-07] MEDS: Montelukast 10 MG Tablet PO (08:22)
[2019-07-07] MEDS: Losartan Potassium 25 MG Tablet 12.5 MG PO (08:24)
[2019-07-07] MEDS: Febuxostat 40 MG TABLET 80 MG PO (08:24)
[2019-07-07] MEDS: Glucerna Shake 120 ML LIQUID PO ×4 (08:29→22:06)
[2019-07-07] MEDS: metFORMIN HCl 1,000 MG Tablet 1000 MG PO (08:29)
[2019-07-07 09:37] VITALS: PULSE 110
[2019-07-07] MEDS: FLUTICASONE/VILANTEROL 1 EACH BLST.W.DEV IH (09:47)
--- NOTE | 2019-07-07 11:37 | PCM.PN.SRG ---
Patient Problems: Active and Suspected Problems (Last Reviewed 06/24/19 @ 16:39 by Deedee Newton) Wound infection (Acute) Subjective: Postop #16 Patient is resting comfortably. - Physical Exam General: Alert, Oriented x3 HEENT: PERRLA, EOMI Oral: Moist Mucosa Neck: Supple Abdomen: Soft, Non-Distended Skin: Incision - Breast incisions are dry and intact. Nipples are viable. Breasts are soft and symmetrical. Small amount of skin compromise on the right breast at the Tzone. The area is dry and nontender. Could not express any fluid at this time. Neurological: Cranial nerves II-XII grossly intact Psych/Mental Status: Normal Affect, Appropriate Vital Signs Temp Pulse Resp BP Pulse Ox 99.0 F 110 H 18 145/91 H 96 07/07/19 08:18 07/07/19 09:37 07/07/19 08:18 07/07/19 08:18 07/07/19 08:18 Oxygen Delivery Method Room Air Weight: 188 lb 14.978 oz Body Mass Index (BMI) 31.4 Finger Stick Blood Glucose 366 Intake and Output for Last 24 Hours 07/05/19 07/06/19 07/07/19 23:59 23:59 23:59 Intake Total 3890.25 / 4490.25 1290 / 1290 Balance 3890.25 / 4490.25 1290 / 1290 Laboratory Tests Past 24 Hrs 07/07/19 07/07/19 05:40 05:40 WBC 14.6 H RBC 3.75 L Hgb 11.4 L Hct 34.6 L MCV 92.3 MCH 30.4 MCHC 32.9 RDW Std Deviation 46.1 H RDW Coeff of Cipriano 13.6 Plt Count 513 H MPV 8.7 Sodium 140 Potassium 4.1 Chloride 108 H Carbon Dioxide 23.0 Anion Gap 9 BUN 16 Creatinine 0.76 Estim Creat Clear Calc 79.69 Est GFR (MDRD) Af Amer 104 Est GFR (MDRD) Non-Af 86 BUN/Creatinine Ratio 21.2 H Glucose 90 Calcium 8.8 POC Glucose 07/06/19 07/06/19 22:02 21:03 POC Glucose 72 51 L Medical Necessity - Tobacco Use Smoking Status: Former smoker Assessment/Plan All Active Problems (Last Reviewed 06/24/19 @ 16:39 by Deedee Newton) Wound infection (Acute) Encephalopathy acute (Acute) Acute cholecystitis (Resolved) Gallbladder rupture (Resolved) Respiratory failure (Resolved) Severe sepsis (Resolved) Surgical wound dehiscence (Resolved) Wound infection after surgery (Resolved) 1. Bilateral macromastia. 2. Neck pain. 3. Thoracic back pain. 4. Bilateral shoulder pain from shoulder grooving from the weight of the breasts on the bra straps. 5. Inframammary intertrigo. 6. Smoker, reportedly quit for the surgery. 7. s/p bilateral breast reduction mammaplasty. 8. Bilateral breast cellulitis. 9. Mild skin compromise right breast at Tzone. Continue Vancomycin and Zosyn. Thus far the breasts appear to be improving. Less redness noted. Incisions are dry. No drainage expressed from the breasts. Compromised skin on the right is stable. WBC has improved from 17.5 to 14.6. Will recheck again tomorrow. As long as the WBC continues to improve and the redness improves, will stop IV antibiotics and changing to po antibiotics at discharge. Because she is diabetic, will continue IV antibiotics for one more day and then change to po antibiotics in anticipation of discharge tomorrow. 'If drainage is seen, will send a wound culture at that time and start silver dressing changes. No need for silver dressing at this time as the incisions are dry. Once the area of skin compromise at the Tzone right breast starts to demarcate with a dry eschar, will sharply debride to aid in wound care with silver dressing changes.
[2019-07-07 13:06] LABS: Vancomycin, Trough Level 11.5 ug/mL (5.0-15.0)
--- NOTE | 2019-07-07 14:28 | PCM.RX.CS ---
Consult Pharmacy has been consulted to manage selected antiobiotic: Vancomycin Type of Consult: Follow-up Suspected Infection: Skin/Soft tissue Prior Doses of Antibiotics Received/Current Regimen: VANCOMYCIN 750MG IV Q12HR: 07/06 @1311, 0123 AND 07/07 @1247 Labs: Sodium 140 mmol/L (136-145) 07/07/19 05:40 Potassium 4.1 mmol/L (3.5-5.1) 07/07/19 05:40 Chloride 108 mmol/L (98-107) H 07/07/19 05:40 Carbon Dioxide 23.0 mmol/L (21.0-32.0) 07/07/19 05:40 Anion Gap 9 (5-15) 07/07/19 05:40 BUN 16 mg/dL (7-18) 07/07/19 05:40 Creatinine 0.76 mg/dL (0.55-1.02) 07/07/19 05:40 Est GFR (MDRD) Af Amer 104 mL/min (>60) 07/07/19 05:40 Est GFR (MDRD) Non-Af 86 mL/min (>60) 07/07/19 05:40 BUN/Creatinine Ratio 21.2 RATIO (10-20) H 07/07/19 05:40 Glucose 90 mg/dL (74-106) 07/07/19 05:40 Vancomycin Trough 11.5 ug/mL (5.0-15.0) 07/07/19 12:22 Goal Trough: 10-15 mcg/mL Pharmacy Plan for Drug Dosing: The patient had a trough drawn which resulted in a value of 11.5 (~11hrs from last administered dose). This is within the patient's goal trough of 10-15. Will continue current regimen and recheck a trough in 3 days. PLAN/RECOMMENDATIONS 1. Continue vancomycin 750mg IV Q12hrs 2. Trough reassessment 07/10/19 @1230 3. Pharmacy Service will continue to monitor and adjust dosing as required.
[2019-07-07] MEDS: 0.9% NaCl Peripheral Flush Adult/Peds IV ×2 (14:36→14:46)
[2019-07-07] MEDS: Ondansetron 4 MG/2 ML Vial IV ×2 (14:36→20:38)
[2019-07-07 14:37] VITALS: BP 142/85; PULSE 92; RESP 16; TEMP 37.1; O2SAT 96
[2019-07-07 16:51] LABS: Bedside Glucose 131 mg/dL (70-110)
[2019-07-07 20:30] VITALS: BP 111/65; PULSE 86; RESP 16; TEMP 36.9; O2SAT 96
[2019-07-07] MEDS: Lidocaine 5% Patch 2 PATCH TOPICAL (22:07)
[2019-07-07] MEDS: Atorvastatin Calcium 40 MG Tablet PO (22:07)
[2019-07-08] MEDS: oxyCODONE 5 MG Tablet 10 MG PO ×4 (00:56→21:27)
[2019-07-08] MEDS: 0.9% NaCl IVPB Med Flush (250 mL) 15 ML IV ×3 (03:14→14:27)
[2019-07-08 05:50] LABS: Hematocrit 35.6 % (37-47); Hemoglobin 11.5 g/dL (12.0-15.0); Mean Corp Hgb Conc 32.3 g/dL (32-36); Mean Corpuscular Hgb 30.3 pg (27.0-32.0); Mean Corpuscular Volume 93.9 fL (81-99); Mean Platelet Vol. 8.6 fl (6.2-12.0); Platelet Count 560 K/mm3 (150-450); RBC Distribution Width CV 13.5 % (11.6-14.6); Red Blood Count 3.79 M/mm3 (4.2-5.4); White Blood Count 15.7 K/mm3 (4.4-11.0)
[2019-07-08] MEDS: Gabapentin 600 MG Tablet PO ×3 (05:57→21:29)
[2019-07-08] MEDS: HYDROmorphone 1 MG/ML Syringe IV ×3 (05:58→19:33)
[2019-07-08] MEDS: Levothyroxine 100 MCG Tablet PO (05:58)
[2019-07-08 06:01] LABS: Anion Gap 7 (5-15); BUN 16 mg/dL (7-18); BUN/Creat Ratio 18.4 RATIO (10-20); Calcium,Total 9.3 mg/dL (8.5-10.1); Chloride 106 mmol/L (98-107); Creatinine, Serum 0.87 mg/dL (0.55-1.02); EST Glomerular Filtration Rate 73 mL/min (>60); Est Glom Filt Rate - Afr Amer 89 mL/min (>60); Estimated Creatinine Clearance 69.61 ml/min; Glucose 89 mg/dL (74-106); Potassium 4.4 mmol/L (3.5-5.1); Sodium Level 140 mmol/L (136-145)
[2019-07-08] MEDS: Ondansetron 4 MG/2 ML Vial IV ×2 (06:07→19:29)
[2019-07-08] MEDS: Iron Polysaccharide Complex 150 MG CAPSULE PO (07:57)
[2019-07-08] MEDS: metFORMIN HCl 1,000 MG Tablet 1000 MG PO (07:57)
[2019-07-08 08:00] VITALS: BP 120/82; PULSE 72; RESP 18; TEMP 36.6; O2SAT 97
--- NOTE | 2019-07-08 09:27 | NURSING ---
wound photo: right breast
--- NOTE | 2019-07-08 09:28 | NURSING ---
wound photo left breast
[2019-07-08] MEDS: FLUTICASONE/VILANTEROL 1 EACH BLST.W.DEV IH (09:55)
[2019-07-08] MEDS: Pantoprazole Sodium 40 MG Tablet PO (09:56)
[2019-07-08] MEDS: Glucerna Shake 120 ML LIQUID PO ×4 (09:56→21:28)
[2019-07-08] MEDS: Loratadine 10 MG Tablet PO (09:56)
[2019-07-08] MEDS: Montelukast 10 MG Tablet PO (09:57)
[2019-07-08] MEDS: Febuxostat 40 MG TABLET 80 MG PO (09:57)
[2019-07-08] MEDS: Losartan Potassium 25 MG Tablet 12.5 MG PO (09:57)
[2019-07-08] MEDS: DULoxetine Hcl 60 MG Capsule PO (09:57)
[2019-07-08] MEDS: proMETHazine 25 MG Tablet PO (10:12)
[2019-07-08 13:36] LABS: M R Staph aureus DNA By PCR Negative (Negative); Probe Check PASS; Specimen Processing Control PASS; Staph aureus DNA By PCR NEGATIVE (Negative)
[2019-07-08] MEDS: 0.9% NaCl Peripheral Flush Adult/Peds IV ×2 (14:22→14:27)
--- NOTE | 2019-07-08 14:26 | CASEMGMT ---
Addendum entered by Tee Yeboah 07/08/19 15:51: Per Geraldine @ [facility], they can accept pt for IV antibiotics on dc. MAURICE PARKER let her know pt states start of care would need to be 7am (prior to her going to work), or after 5:30 pm. Moy SINGH Original Note: MAURICE PARKER Note: Pt to go home on IV antibiotics. Script received for Ceftriaxone 2 gm IV Q 24 hours. Pt is getting dose @ 10 am now, would like to schedule home doses for after 5:30 pm. Discussed Home Health options- list given to patient. Pt first choice is [facility]. Call to Geraldine @ [facility]. Message left. Pt will review list for second choice if needed. -Reviewed [facility] infusion companies per [facility] ppo website. [facility] and [facility] are [facility]. Pt choice is [facility]. Referral faxed to [facility] @ [facility]: anticipate home on discharge with IV antibiotics through [facility]. [facility] referral pending. Moy SINGH
[2019-07-08 17:14] VITALS: BP 126/78; PULSE 77; RESP 16; TEMP 37; O2SAT 96
--- NOTE | 2019-07-08 19:08 | PCM.PN.SRG ---
Patient Problems: Active and Suspected Problems (Last Reviewed 06/24/19 @ 16:39 by Deedee Newton) Wound infection (Acute) Subjective: Postop #17 Patient is resting comfortably. - Physical Exam General: Alert, Oriented x3 HEENT: PERRLA, EOMI Oral: Moist Mucosa Neck: Supple Abdomen: Soft, Non-Distended Skin: Incision - Right breast bruised area is more demarcated today. WBC increased slightly. Will place PICC line and change to Ceftriaxone for outpatient use. Sharply debrided the eschar. Remaining sutures removed. Some serous drainage expressed. Dimensions 6 x 4 x 2 cm. Packed with saline gauze. Will apply vac tomorrow. Wound culture obtained. Wound has too much depth for silver dressing at this time. Neurological: Cranial nerves II-XII grossly intact Psych/Mental Status: Normal Affect, Appropriate Vital Signs Temp Pulse Resp BP Pulse Ox 98.6 F 77 16 126/78 H 96 07/08/19 17:14 07/08/19 17:14 07/08/19 17:14 07/08/19 17:14 07/08/19 17:14 Oxygen Delivery Method Room Air Weight: 188 lb 14.978 oz Body Mass Index (BMI) 31.4 Finger Stick Blood Glucose 366 Intake and Output for Last 24 Hours 07/06/19 07/07/19 07/08/19 23:59 23:59 23:59 Intake Total 3890.25 / 4490.25 1905 / 2505 2758.00 / 2758.00 Output Total 50 / 50 Balance 3890.25 / 4490.25 1855 / 2455 2758.00 / 2758.00 Microbiology Past 72 Hours 07/08/19 09:00 Gram Stain - Final Wound - Breast 07/05/19 23:54 Blood Culture - Preliminary Blood Culture (Wb) - Anticubital Right No growth in 48 hours. 07/05/19 23:50 Blood Culture - Preliminary Blood Culture (Wb) - Anticubital Left No growth in 48 hours. Laboratory Tests Past 24 Hrs 07/08/19 07/08/19 07/08/19 05:16 05:16 09:00 WBC 15.7 H RBC 3.79 L Hgb 11.5 L Hct 35.6 L MCV 93.9 MCH 30.3 MCHC 32.3 RDW Std Deviation 46.0 H RDW Coeff of Cipriano 13.5 Plt Count 560 H MPV 8.6 Sodium 140 Potassium 4.4 Chloride 106 Carbon Dioxide 27.0 Anion Gap 7 BUN 16 Creatinine 0.87 Estim Creat Clear Calc 69.61 Est GFR (MDRD) Af Amer 89 Est GFR (MDRD) Non-Af 73 BUN/Creatinine Ratio 18.4 Glucose 89 Calcium 9.3 S.aureus Protein A PCR NEGATIVE MRSA (PCR) Negative Medical Necessity - Tobacco Use Smoking Status: Former smoker Assessment/Plan All Active Problems (Last Reviewed 06/24/19 @ 16:39 by Deedee Newton) Wound infection (Acute) Encephalopathy acute (Acute) Acute cholecystitis (Resolved) Gallbladder rupture (Resolved) Respiratory failure (Resolved) Severe sepsis (Resolved) Surgical wound dehiscence (Resolved) Wound infection after surgery (Resolved) 1. Bilateral macromastia. 2. Neck pain. 3. Thoracic back pain. 4. Bilateral shoulder pain from shoulder grooving from the weight of the breasts on the bra straps. 5. Inframammary intertrigo. 6. Smoker, reportedly quit for the surgery. 7. s/p bilateral breast reduction mammaplasty. 8. Bilateral breast cellulitis. 9. Mild skin compromise right breast at [facility]. WBC has increased to 15.[address] PICC line and change IV antibiotics to Ceftriaxone for outpatient use. Right breast bruised area is more demarcated today. WBC increased slightly. Sharply debrided the eschar. Remaining sutures removed. Some serous drainage expressed. Dimensions 6 x 4 x 2 cm. Packed with saline gauze. Will apply vac tomorrow. Wound culture obtained. Wound has too much depth for silver dressing at this time. Discharge home after vac approved, home health obtained, and infusion [facility] set up for antibiotics. Followup at [facility].
[2019-07-08 20:27] VITALS: BP 125/85; PULSE 93; RESP 18; TEMP 36.9; O2SAT 95
[2019-07-08] MEDS: Lidocaine 5% Patch 2 PATCH TOPICAL (21:28)
[2019-07-08] MEDS: Atorvastatin Calcium 40 MG Tablet PO (21:29)
[2019-07-09 02:25] VITALS: BP 107/71; PULSE 85; RESP 16; TEMP 36.8; O2SAT 96
[2019-07-09] MEDS: oxyCODONE 5 MG Tablet 10 MG PO ×3 (02:29→13:47)
[2019-07-09] MEDS: HYDROmorphone 1 MG/ML Syringe IV ×2 (03:51→12:23)
[2019-07-09] MEDS: Ondansetron 4 MG/2 ML Vial IV (03:51)
[2019-07-09 05:31] LABS: Hematocrit 32.8 % (37-47); Hemoglobin 10.7 g/dL (12.0-15.0); Mean Corp Hgb Conc 32.6 g/dL (32-36); Mean Corpuscular Hgb 30.5 pg (27.0-32.0); Mean Corpuscular Volume 93.4 fL (81-99); Mean Platelet Vol. 8.7 fl (6.2-12.0); Platelet Count 498 K/mm3 (150-450); RBC Distribution Width CV 13.7 % (11.6-14.6); RBC Distribution Width SD 46.3 fl (35.1-43.9); Red Blood Count 3.51 M/mm3 (4.2-5.4); White Blood Count 14.7 K/mm3 (4.4-11.0)
[2019-07-09 05:40] LABS: Anion Gap 6 (5-15); BUN 18 mg/dL (7-18); BUN/Creat Ratio 20.8 RATIO (10-20); Calcium,Total 9.1 mg/dL (8.5-10.1); Chloride 106 mmol/L (98-107); Creatinine, Serum 0.86 mg/dL (0.55-1.02); EST Glomerular Filtration Rate 74 mL/min (>60); Est Glom Filt Rate - Afr Amer 89 mL/min (>60); Estimated Creatinine Clearance 70.42 ml/min; Glucose 102 mg/dL (74-106); Potassium 4.3 mmol/L (3.5-5.1); Sodium Level 141 mmol/L (136-145)
[2019-07-09] MEDS: 0.9% NaCl Peripheral Flush Adult/Peds IV ×2 (06:03→12:23)
[2019-07-09] MEDS: Gabapentin 600 MG Tablet PO ×2 (06:03→13:41)
[2019-07-09] MEDS: Levothyroxine 100 MCG Tablet PO (06:03)
[2019-07-09] MEDS: 0.9% NaCl IVPB Med Flush (250 mL) 15 ML IV (06:03)
[2019-07-09 07:24] VITALS: BP 113/77; PULSE 82; RESP 18; TEMP 36.9; O2SAT 93
[2019-07-09] MEDS: Iron Polysaccharide Complex 150 MG CAPSULE PO (09:29)
[2019-07-09] MEDS: FLUTICASONE/VILANTEROL 1 EACH BLST.W.DEV IH (09:30)
[2019-07-09] MEDS: metFORMIN HCl 1,000 MG Tablet 1000 MG PO (09:30)
[2019-07-09] MEDS: Loratadine 10 MG Tablet PO (09:31)
[2019-07-09] MEDS: Losartan Potassium 25 MG Tablet 12.5 MG PO (09:32)
[2019-07-09] MEDS: DULoxetine Hcl 60 MG Capsule PO (09:32)
[2019-07-09] MEDS: Pantoprazole Sodium 40 MG Tablet PO (09:33)
[2019-07-09] MEDS: Montelukast 10 MG Tablet PO (09:34)
[2019-07-09] MEDS: Febuxostat 40 MG TABLET 80 MG PO (09:34)
[2019-07-09] MEDS: Glucerna Shake 120 ML LIQUID PO ×3 (10:00→16:41)
--- NOTE | 2019-07-09 11:00 | CASEMGMT ---
MAURICE PARKER received update from [facility] that patient is covered at 100% for IV ATBs. MAURICE PARKER updated [facility] and they are able to accept the patient. Patient will need wound vac at discharge pending approval. Start of care is planned for 07/10/191729. MAURICE PARKER updated patient that IV ATB and HHC are confirmed with planned start of care for 07/10/191729.
--- NOTE | 2019-07-09 12:57 | PCM.PN.SRG ---
Subjective: Postop #18 Patient is resting comfortably. VAC applied today. - Physical Exam General: Alert, Oriented x3 HEENT: PERRLA, EOMI Oral: Moist Mucosa Neck: Supple Abdomen: Soft, Non-Distended Skin: Ulcer/ Wound - Right breast wound is stable. No more drainage noted. VAC applied today. Less redness seen., Incision - Left breast incisions are dry and intact and healing satisfactory. Nipples are viable. Lymphatic: - - no axillary adenopathy. Neurological: Cranial nerves II-XII grossly intact Psych/Mental Status: Normal Affect, Appropriate Vital Signs Temp Pulse Resp BP Pulse Ox 98.5 F 82 18 113/77 93 07/09/19 07:24 07/09/19 07:24 07/09/19 07:24 07/09/19 07:24 07/09/19 07:24 Oxygen Delivery Method Room Air Weight: 188 lb 14.978 oz Body Mass Index (BMI) 31.4 Finger Stick Blood Glucose 366 Intake and Output for Last 24 Hours 07/07/19 07/08/19 07/09/19 23:59 23:59 23:59 Intake Total 1905 / 2505 2758.00 / 2758.00 275.75 / 275.75 Output Total 50 / 50 Balance 1855 / 2455 2758.00 / 2758.00 275.75 / 275.75 Microbiology Past 72 Hours 07/08/19 18:45 Gram Stain - Final Wound - Breast 07/08/19 09:00 Gram Stain - Final Wound - Breast Wound Culture - Preliminary No growth-Final to follow 07/05/19 23:54 Blood Culture - Preliminary Blood Culture (Wb) - Anticubital Right No growth in 48 hours. 07/05/19 23:50 Blood Culture - Preliminary Blood Culture (Wb) - Anticubital Left No growth in 48 hours. Laboratory Tests Past 24 Hrs 07/08/19 07/09/19 07/09/19 09:00 05:12 05:12 WBC 14.7 H RBC 3.51 L Hgb 10.7 L Hct 32.8 L MCV 93.4 MCH 30.5 MCHC 32.6 RDW Std Deviation 46.3 H RDW Coeff of Cipriano 13.7 Plt Count 498 H MPV 8.7 Sodium 141 Potassium 4.3 Chloride 106 Carbon Dioxide 29.0 Anion Gap 6 BUN 18 Creatinine 0.86 Estim Creat Clear Calc 70.42 Est GFR (MDRD) Af Amer 89 Est GFR (MDRD) Non-Af 74 BUN/Creatinine Ratio 20.8 H Glucose 102 Calcium 9.1 S.aureus Protein A PCR NEGATIVE MRSA (PCR) Negative Medical Necessity - Tobacco Use Smoking Status: Former smoker Assessment/Plan All Active Problems (Last Reviewed 06/24/19 @ 16:39 by Deedee Newton) Wound infection (Acute) Encephalopathy acute (Acute) Acute cholecystitis (Resolved) Gallbladder rupture (Resolved) Respiratory failure (Resolved) Severe sepsis (Resolved) Surgical wound dehiscence (Resolved) Wound infection after surgery (Resolved) 1. Bilateral macromastia. 2. Neck pain. 3. Thoracic back pain. 4. Bilateral shoulder pain from shoulder grooving from the weight of the breasts on the bra straps. 5. Inframammary intertrigo. 6. Smoker, reportedly quit for the surgery. 7. s/p bilateral breast reduction mammaplasty. 8. Bilateral breast cellulitis. 9. Nonhealing surgical wound right breast at [facility]. WBC has decreased to 14.7 from 15.7. PICC line in place. Continue Ceftriaxone. Wound culture negative thus far. A positive culture may necessitate antibiotic modification. Prealbumin from 06/22/19 was 17.8. Encourage nutritional supplementation with protein to help the healing process. Right breast wound is stable after debridement. VAC applied today. To be changed three times per week at 150 mmHg continuous suction. VAC has been approved. Discharge home today. She has been getting Ceftriaxone in the morning. Home Health will see her tomorrow and start Ceftriaxone later in the afternoon. Since the wound culture is negative thus far, it is ok that the transition from the hospital to home will have the Ceftriaxone given longer than 24 hours. Followup at the Wound Center next week. Wrote script for Diflucan for 30 days with a refill while on antibiotics. Wrote scripts for Percocet for pain (40 tabs) and for Valium for spasm (30 tabs). Wrote scripts for Phenergan for nausea (30 tabs) and a refill and for Colace for constipation (60 tabs).
[2019-07-09] MEDS: Fluconazole 100 MG Tablet 200 MG PO (13:41)
[2019-07-09 14:00] VITALS: BP 112/60; PULSE 88; RESP 18; TEMP 36.7; O2SAT 96
--- NOTE | 2019-07-09 14:01 | NURSING ---
wound photo: right breast
--- NOTE | 2019-07-09 15:42 | NURSING ---
Home VAC approved. pt switched over at this time. reviewed alarms, canister change, and how to fix a leak with patient. pt has previously had a wound VAC as well. denies further questions or needs at this time.
[2019-07-09] MEDS: diazePAM 5 MG Tablet PO (16:41)
--- NOTE | 2019-07-09 16:51 | NURSING ---
PT RESTING QUIETLY IN BED @ THIS TIME W/EYES CLOSED, RESP EASY
--- NOTE | 2019-07-09 17:03 | DCINST_ITS ---
- Discharge Diagnoses Current Active Problems: Current Active and Chronic Problems (Last Reviewed 06/24/19 @ 16:39 by Deedee Newton) Wound infection (Acute) You will use the following diet at home:: No restrictions, Other - encourage nutritional supplementation with protein to help the healing process. Discharge Activity: May not drive while taking narcotic pain medications., May Shower - on the days the vac is changed., - - keep head elevated. no heavy lifting. May shower in (days): 2 - on the days the vac is changed. May resume sexual activity in: No Restrictions Weight Bearing Status: Weight bearing as tolerated Lifting Restrictions: 20 lbs. Keep extremity elevated above heart level: - - elevate head. Call your doctor if your incision/area has: Continuous Slow Oozing, Sudden Increased Bleeding, Increased Pain/ Swelling, Increased Redness, Foul Smelling Discharge, Swelling at the incision site Call your doctor if you observe: Fever of 101 or Higher, Coldness, Increased Pain, Shortness of breath, Chest pain, Calf discomfort, Uncontrolled pain Suture Line Care: - - vac changes to right breast three times per week at 150 mmHg continuous suction. dry dressings to left breast. Change Dressing in (Days):: 2 - vac changes three times perweek. Cleanse incision/area with: Soap & Water - may cleanse the wound with soap and water at the time of the vac change., - - may shower on the days the vac is changed. Allergies/Adverse Reactions: Allergies codeine Allergy (Verified 07/05/19 21:45) Rash nabumetone [From Relafen] Allergy (Verified 07/05/19 21:45) Rash Sulfa (Sulfonamide Antibiotics) Allergy (Verified 07/05/19 21:45) Rash pregabalin [From Lyrica] Adverse Reaction (Verified 07/05/19 21:45) confusion/delirium CONFUSION/DELIRIUM albuterol Adverse Reaction (Uncoded 07/05/19 21:45) Laryngospasms Medications to take at Discharge Atorvastatin Calcium [Lipitor] 40 mg PO QHS 03/05/18 Cetirizine HCl [All Day Allergy] 10 mg PO DAILY 03/05/18 Cholecalciferol (Vitamin D3) [Vitamin D3] 5,000 unit PO DAILY 03/05/18 Duloxetine HCl 60 mg PO DAILY 03/05/18 Febuxostat [Uloric] 80 mg PO DAILY 03/05/18 Fluticasone/Vilanterol [Breo Ellipta 200-25 Mcg INH] 1 puff IH DAILY 03/05/18 Lidocaine [Lidoderm Patch] 1 patch TOPICAL QHS 03/05/18 Montelukast Sodium [Singulair] 10 mg PO DAILY 03/05/18 Omeprazole [Prilosec] 40 mg PO DAILY 03/05/18 Potassium Citrate [Potassium Citrate ER] 15 meq PO DAILY PRN 03/05/18 Sodium Chloride [Saline Nasal [place]] 1 spray NS Q2H PRN 03/05/18 metFORMIN HCl [Glucophage] 1,000 mg PO DAILY 03/05/18 Buprenorphine 20 Mcg/Hr [Butrans 20 Mcg/Hr] 20 mcg TRANSDERM. SA 10/11/18 Gabapentin [Gralise] 600 mg PO TID 10/11/18 Liraglutide [Victoza] 1.8 mg SQ DINNER 04/19/19 Levothyroxine [Synthroid] 100 mcg PO DAILY 06/14/19 Irbesartan 37.5 mg PO QHS 07/06/19 Iron Poly/Vit C [Niferex-150] 150 mg PO DAILYCM 07/06/19 Ceftriaxone 2 gm IV Q24 #14 vial 07/08/19 Diazepam [Valium] 5 mg PO 4X/DAY PRN PRN #30 tab 07/09/19 Docusate Sodium [Colace] 100 mg PO BID #60 cap 07/09/19 Fluconazole [Diflucan] 200 mg PO DAILY #30 tab 07/09/19 Glucerna Shake 120 ml PO 4X/DAY liquid 07/09/19 Loratadine [Claritin] 10 mg PO DAILY tab 07/09/19 Losartan Potassium [Cozaar] 12.5 mg PO DAILY tab 07/09/19 Oxycodone HCl/Acetaminophen [Oxycodone-Acetaminophen 5-325] 1 tab PO Q4H PRN PRN 7 Days #40 tab 07/09/19 proMETHazine tablet [Phenergan tablet] 25 mg PO 4X/DAY PRN PRN #30 tab 07/09/19 The following prescriptions were given: Ceftriaxone 2 gm IV Q24 #14 vial Prescription Printed Docusate Sodium [Colace] 100 mg PO BID #60 cap Prescription Printed Fluconazole [Diflucan] 200 mg PO DAILY #30 tab Prescription Printed Oxycodone HCl/Acetaminophen [Oxycodone-Acetaminophen 5-325] 1 tab PO Q4H PRN PRN 7 Days #40 tab PRN Reason: pain Prescription Printed proMETHazine tablet [Phenergan tablet] 25 mg PO 4X/DAY PRN PRN #30 tab PRN Reason: NAUSEA/VOMITING Prescription Printed Diazepam [Valium] 5 mg PO 4X/DAY PRN PRN #30 tab PRN Reason: Spasms Prescription Printed Primary Care Physician: Aron Palumbo MD [Primary Care Provider] - Test Results: Test results from this visit will be discussed in further detail at your follow- up appointment, if applicable. Please Follow Up With: Parth Watkins MD When: monday at [facility], 07/15/19. call [phone] for appt. Proposed Discharge Date: 07/09/19
--- NOTE | 2019-07-09 17:08 | PCM.DC.SUM ---
Discharge Date and Diagnosis Date of Admission: 07/06/19 Date of Discharge: 07/09/19 - Primary Discharge Diagnosis Bilateral breast cellulitis. Nonhealing surgical wound right breast at Tzone. - Secondary Discharge Diagnosis chronically infected soft tissue mass left cheek. HLD (hyperlipidemia) Chronic low back pain COPD (chronic obstructive pulmonary disease) Diabetes mellitus Hypertension Cervical cancer Bilateral macromastia. Neck pain. Thoracic back pain. Bilateral shoulder pain from shoulder grooving from the weight of the breasts on the bra straps. Inframammary intertrigo. Smoker, reportedly quit for the surgery. h/o bilateral breast reduction mammaplasty. Hospital Course and Treatment Imaging Results: None. 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 She had recent surgery on 06/21/19 where she underwent bilateral breast reduction mammaplasty. In the ED, she was afebrile. The WBC was 20.3. The Lactate was 1.6. Patient is diabetic and it was recommended to admit the patient for IV antibiotics (Vancomycin and Zosyn) and wound care with Silver dressings. There was some eschar at the Tzone right breast. Will also obtain wound cultures. Her cellulitis should improve with IV antibiotics and aggressive wound care. If no improvement is noted or if it worsens, then would need operative debridement. During her hospitalization her WBC improved from 20.3 to 14.6 after a couple of days and then increased to 15.7. At that point, a PICC line was placed and her antibiotics were changed to Ceftriaxone in anticipation for outpatient use. The area of compromise on the right breast at the Tzone further demarcated into a dry eschar and was sharply debrided on the the third day. Wound cultures were obtained. The wound had too much depth for a Silver dressing so the VAC was placed. On 07/09/19 the VAC was approved and she was discharged home in satisfactory condition. After the debridement, the WBC decreased back to 14.7. Will continue Ceftriaxone after discharge. Wound culture negative thus far. A positive culture may necessitate antibiotic modification. Prealbumin from 06/22/19 was 17.8. Encourage nutritional supplementation with protein to help the healing process. The VAC will be changed three times per week at 150 mmHg continuous suction with assist from Home Health. Discharged home on 07/09/19. She has been getting Ceftriaxone in the morning. Home Health will see her tomorrow and start Ceftriaxone later in the afternoon. Since the wound culture is negative thus far, it is ok that the transition from the hospital to home will have the Ceftriaxone given longer than 24 hours. Followup at the [facility] next week on Monday07/15/19. Wrote script for Diflucan for 30 days with a refill while on antibiotics. Wrote scripts for Percocet for pain (40 tabs) and for Valium for spasm (30 tabs). Wrote scripts for Phenergan for nausea (30 tabs) and a refill and for Colace for constipation (60 tabs). After the infection is under control and healing has occurred, can discuss breast reconstruction revision at that time. - Physical Exam General: Alert, Oriented x3 HEENT: PERRLA, EOMI Oral: Moist Mucosa Neck: Supple Abdomen: Soft, Non-Distended Skin: Ulcer/ Wound - Right breast wound is stable. No more drainage noted. VAC applied today. Less redness seen. Measures 5 x 7 x 2 cm., Incision - Left breast incisions are dry and intact and healing satisfactory. Nipples are viable. Lymphatic: - - no axillary adenopathy. Neurological: Cranial nerves II-XII grossly intact Psych/Mental Status: Normal Affect, Appropriate Vital Signs Temp Pulse Resp BP Pulse Ox 98.1 F 88 18 112/60 96 07/09/19 14:00 07/09/19 14:00 07/09/19 14:00 07/09/19 14:00 07/09/19 14:00 Oxygen Delivery Method Room Air Weight: 188 lb 14.978 oz Body Mass Index (BMI) 31.4 Finger Stick Blood Glucose 366 Intake and Output for Last 24 Hours 07/07/19 07/08/19 07/09/19 23:59 23:59 23:59 Intake Total 1905 / 2505 2758.00 / 2758.00 1156.25 / 1156.25 Output Total 50 / 50 Balance 1855 / 2455 2758.00 / 2758.00 1156.25 / 1156.25 Microbiology Past 72 Hours 07/08/19 18:45 Gram Stain - Final Wound - Breast 07/08/19 09:00 Gram Stain - Final Wound - Breast Wound Culture - Preliminary No growth-Final to follow 07/05/19 23:54 Blood Culture - Preliminary Blood Culture (Wb) - Anticubital Right No growth in 48 hours. 07/05/19 23:50 Blood Culture - Preliminary Blood Culture (Wb) - Anticubital Left No growth in 48 hours. Laboratory Tests Past 24 Hrs 07/09/19 07/09/19 05:12 05:12 WBC 14.7 H RBC 3.51 L Hgb 10.7 L Hct 32.8 L MCV 93.4 MCH 30.5 MCHC 32.6 RDW Std Deviation 46.3 H RDW Coeff of Cipriano 13.7 Plt Count 498 H MPV 8.7 Sodium 141 Potassium 4.3 Chloride 106 Carbon Dioxide 29.0 Anion Gap 6 BUN 18 Creatinine 0.86 Estim Creat Clear Calc 70.42 Est GFR (MDRD) Af Amer 89 Est GFR (MDRD) Non-Af 74 BUN/Creatinine Ratio 20.8 H Glucose 102 Calcium 9.1 Discharge Diet: Carb Control Diet, - - encourage nutritional supplementation with protein to help the healing process. Discharge Activity: May not drive while taking narcotic pain medications., May Shower - on the days the vac is changed., - - keep head elevated. no heavy lifting. May shower in (days): 2 - on the days the vac is changed. May resume sexual activity in: No Restrictions Weight Bearing Status: Weight bearing as tolerated Lifting Restrict to (lbs):: 20 Keep extremity elevated above heart level: - - elevate head. Call your doctor if your incision/area has: Continuous Slow Oozing, Sudden Increased Bleeding, Increased Pain/ Swelling, Increased Redness, Foul Smelling Discharge, Swelling at the incision site Call your doctor if you observe: Fever of 101 or Higher, Coldness, Increased Pain, Shortness of breath, Chest pain, Calf discomfort, Uncontrolled pain Suture Line Care: - - vac changes to right breast three times per week at 150 mmHg continuous suction. dry dressings to left breast. Change Dressing in (Days):: 2 - vac changes three times per week. Cleanse incision/area with: Soap & Water - may cleanse the wound with soap and water at the time of the vac change., - - may shower on the days the vac is changed. Home Medications: Medications to take at Discharge Atorvastatin Calcium [Lipitor] 40 mg PO QHS 03/05/18 Cetirizine HCl [All Day Allergy] 10 mg PO DAILY 03/05/18 Cholecalciferol (Vitamin D3) [Vitamin D3] 5,000 unit PO DAILY 03/05/18 Duloxetine HCl 60 mg PO DAILY 03/05/18 Febuxostat [Uloric] 80 mg PO DAILY 03/05/18 Fluticasone/Vilanterol [Breo Ellipta 200-25 Mcg INH] 1 puff IH DAILY 03/05/18 Lidocaine [Lidoderm Patch] 1 patch TOPICAL QHS 03/05/18 Montelukast Sodium [Singulair] 10 mg PO DAILY 03/05/18 Omeprazole [Prilosec] 40 mg PO DAILY 03/05/18 Potassium Citrate [Potassium Citrate ER] 15 meq PO DAILY PRN 03/05/18 Sodium Chloride [Saline Nasal [place]] 1 spray NS Q2H PRN 03/05/18 metFORMIN HCl [Glucophage] 1,000 mg PO DAILY 03/05/18 Buprenorphine 20 Mcg/Hr [Butrans 20 Mcg/Hr] 20 mcg TRANSDERM. SA 10/11/18 Gabapentin [Gralise] 600 mg PO TID 10/11/18 Liraglutide [Victoza] 1.8 mg SQ DINNER 04/19/19 Levothyroxine [Synthroid] 100 mcg PO DAILY 06/14/19 Irbesartan 37.5 mg PO QHS 07/06/19 Iron Poly/Vit C [Niferex-150] 150 mg PO DAILYCM 07/06/19 Ceftriaxone 2 gm IV Q24 #14 vial 07/08/19 Diazepam [Valium] 5 mg PO 4X/DAY PRN PRN #30 tab 07/09/19 Docusate Sodium [Colace] 100 mg PO BID #60 cap 07/09/19 Fluconazole [Diflucan] 200 mg PO DAILY #30 tab 07/09/19 Glucerna Shake 120 ml PO 4X/DAY liquid 07/09/19 Loratadine [Claritin] 10 mg PO DAILY tab 07/09/19 Losartan Potassium [Cozaar] 12.5 mg PO DAILY tab 07/09/19 Oxycodone HCl/Acetaminophen [Oxycodone-Acetaminophen 5-325] 1 tab PO Q4H PRN PRN 7 Days #40 tab 07/09/19 proMETHazine tablet [Phenergan tablet] 25 mg PO 4X/DAY PRN PRN #30 tab 07/09/19 amoxicillin 875 mg-potassium clavulanate 125 mg tablet 1 tab PO Q12H #28 tab 07/11/19 Following Prescrptions Were Given to Patient: Ceftriaxone 2 gm IV Q24 #14 vial Prescription Printed Docusate Sodium [Colace] 100 mg PO BID #60 cap Prescription Printed Fluconazole [Diflucan] 200 mg PO DAILY #30 tab Prescription Printed Oxycodone HCl/Acetaminophen [Oxycodone-Acetaminophen 5-325] 1 tab PO Q4H PRN PRN 7 Days #40 tab PRN Reason: pain Prescription Printed proMETHazine tablet [Phenergan tablet] 25 mg PO 4X/DAY PRN PRN #30 tab PRN Reason: NAUSEA/VOMITING Prescription Printed Diazepam [Valium] 5 mg PO 4X/DAY PRN PRN #30 tab PRN Reason: Spasms Prescription Printed Primary Care Physician: Aron Palumbo MD [Primary Care Provider] - Please Follow Up With: Parth Watkins MD When: monday at [facility], 07/15/19. call [phone] for appt. Disposition: Home with Home Health Minutes spent on discharge:: 35 Patient Condition:: Stable Medical Necessity - Tobacco Use Smoking Status: Former smoker Meaningful Use Info Meaningful Use Diagnoses (Choose all that apply): None applicable
[2019-07-09 17:22] VITALS: BP 112/66; PULSE 88; RESP 18; TEMP 36.7; O2SAT 96
--- NOTE | 2019-07-10 14:22 | CASEMGMT ---
MAURICE PARKER Discharge Follow-Up Phone Call. Lacyari: 12 Strata: 4 Discharge Date: 07/09/19 Adm Dx: Breast Wound Infection Call to pt to inquire about how she has been doing since being discharged from the hospital. She states she has been doing okay and denies having any questions about the discharge instructions. She states her IV medication is scheduled to be delivered by 5:30 PM today and [facility] is also scheduled to come see her by then as well. She states she was able to machine pecan picker her new prescriptions and denies having any questions about her medications. She states she is aware of needing to schedule an appt @ the [facility] Center for Monday. She states she has placed a call to them and left a message and is awaiting a return call to schedule this. MAURICE PARKER thanked pt for choosing [facility]. Meghana MARTIN RN, CM
== END 2019-07-09 17:25 | disposition home health service (06) | DRG 858 ==
LOC: ED 07-06 00:32 → MS3 07-06 02:15
PROVIDERS: Admitting Provider Surgery; Emergency Provider Emergency Medicine; Family Provider Family Medicine; PCP Family Medicine; Visit Provider Internal Medicine
DX: T81.49XA Infection following a procedure, other surgical site, initial encounter (principal); E11.9 Type 2 diabetes mellitus without complications; E03.9 Hypothyroidism, unspecified; N61.0 Mastitis without abscess; E66.01 Morbid (severe) obesity due to excess calories; E78.5 Hyperlipidemia, unspecified; J44.9 Chronic obstructive pulmonary disease, unspecified; I10 Essential (primary) hypertension; Z87.891 Personal history of nicotine dependence; Z68.31 Body mass index [BMI] 31.0-31.9, adult; Z79.84 Long term (current) use of oral hypoglycemic drugs; G89.29 Other chronic pain; M54.5 Low back pain
CPT/HCPCS: 36415; 36569; 80048; 80053; 80202; 82962; 83605; 85025; 85027; 85652; 86140; 87040; 87070; 87075; 87077; 87186; 87205; 87640; 97802; 99282; J7030; J7050; A4216; J0696; J2405

== ENCOUNTER 2019-07-15 08:28 | Outpatient (RCR) | payer MEDICARE, MEDICAID, SELFPAY ==
[2019-07-15 08:47] VITALS: BP 107/62; PULSE 90; RESP 16; TEMP 35.9; BMI 30.9
--- NOTE | 2019-07-15 13:01 | PCM.WC.PN ---
(1) Wound of right breast Status: Acute Code(s): S21.001A - Unspecified open wound of right breast, initial encounter (2) Wound infection Status: Acute Code(s): T14.8XXA - Other injury of unspecified body region, initial encounter; L08.9 - Local infection of the skin and subcutaneous tissue, unspecified (3) Smoker Status: Chronic Code(s): F17.200 - Nicotine dependence, unspecified, uncomplicated Type of Wound Date of Service: 07/15/19 Chief Complaint: Open surgical wound to the right abdomen secondary to surgical wound dehiscence from infection after open cholecystectomy History of Wound: On 06/21/19 She underwent bilateral breast reduction. She was admitted on 07/05/19 with elevated WBC and compromised wound healing. On 07/08/19 right breast eschar was debrided in the hospital to make wound care easier and to drain infection. Wound VAC was started along with PICC line placement and Ceftriaxone IV. Wound cultures on 07/08/19 postive for Proteus mirabilis, Enterococcus faecalis and Staphylococcus epidermidis. Today she denies fever. States appetite is ok. Progress of Wound: Stable - Physical Exam Vital Signs Temp Pulse Resp BP 96.6 F L 90 16 107/62 07/15/19 08:47 07/15/19 08:47 07/15/19 08:47 07/15/19 08:47 General: Alert, Oriented x3, Cooperative HEENT: Atraumatic Oral: Moist Mucosa Lungs: Normal air movement Cardiovascular: Regular rate Extremities: No edema, Capillary Refill Less than 3 Seconds Skin: Ulcer/ Wound - Right breast Wound Measurements and Assessment WC - Nurse 1 - General Ulcer Measurement Start: 07/15/19 08:47 Freq: Status: Active Protocol: Activity Type Activity Date Activity User E-Sign Co-Sign Detail Recorded Client Recorded Date Recorded By Document 07/15/19 08:47 MW [id number] 07/15/19 09:00 MW 07/15/19 08:47 Wound Center Nurse 1 [Ulcer Assessment] #3 left breast incision -Combined with other wound No -Current Size (cm) - Length 9.0 -Current Size (cm) - Width 16.0 -Current Size (cm) - Depth 0.1 -Total Square Cm 144.00 -Date of Last Picture (Recall this 07/15/19 field) -Photo Taken Yes -Tunneling No -Undermining/Tunneling No -Circular Undermining No -Exudate Amt None Present -Texture (Flavia-wound Skin Appearance) Assessed, Scarring -Moisture (Flavia-wound Skin Appearance No Abnormality, ) Assessed -Color (Flavia-wound Skin Appearance) No Abnormality, Assessed -Temperature (Flavia-wound Skin No Abnormality Appearance) (Pt Warm) -Tenderness on Palpation (Flavia-wound No Skin Appearance) -Ulcer Cleansing soap and water -Foul Odor after Cleansing No #2 right breast -Current Size (cm) - Length 9.0 -Current Size (cm) - Width 10.8 -Current Size (cm) - Depth 2.1 -Total Square Cm 97.20 -Date of Last Picture (Recall this 07/15/19 field) -Photo Taken Yes -Epithelialization None Present -Tunneling No -Undermining/Tunneling No -Circular Undermining No -Exudate Amt Large -Exudate Type Serosanguineous -Wound Margin Flat & Intact -Granulation Amt Medium (34-66%) -Granulation Quality Red -Necrosis Amt Medium (34-66%) -Necrotic Tissue Type Adherent Slough -Structure Exposed N/A -Texture (Flavia-wound Skin Appearance) Assessed, Localized Edema -Moisture (Flavia-wound Skin Appearance No Abnormality, ) Assessed -Color (Flavia-wound Skin Appearance) No Abnormality, Assessed -Temperature (Flavia-wound Skin No Abnormality Appearance) (Pt Warm) -Tenderness on Palpation (Flavia-wound Yes Skin Appearance) -Ulcer Cleansing soap and water -Foul Odor after Cleansing No -Anesthetic Used 4% Lidocaine Solution [Edema Assessment] -Lower Limb Edema Present No WC - Nurse 2 - General Ulcer CM Notes Start: 07/15/19 08:47 Freq: Status: Active Protocol: Activity Type Activity Date Activity User E-Sign Co-Sign Detail Recorded Client Recorded Date Recorded By Document 07/15/19 09:26 [email or web address] [id number] 07/15/19 09:39 TAYLA 07/15/19 09:26 Wound Center Nurse 2 [Procedure/Treatment] #3 left breast incision -Time 09:26 -Correct Patient Yes -Correct Side, Site, Position Yes -Correct Procedure Yes -Procedure Performed Yes -Type of Procedure Debridement -Clinical Debridement Subcutaneous -Post Debridement Size (cm) - Length 2.3 -Post Debridement Size (cm) - Width 2.5 -Post Debridement Size (cm) - Depth 1.0 -Total Square Cm 5.75 -Wound/Ulcer Outcome Not Healed -Ulcer Cleansing Rinsed/ Irrigated with Saline -Foul Odor after Cleansing No -Bioengineered Tissue No -Bleeding Controlled with Pressure -Other tunnel at 6:00- -1.1cm -Offloading No -Treatment Response Procedure Tolerated Well #2 right breast -Time 09:26 -Correct Patient Yes -Correct Side, Site, Position Yes -Correct Procedure Yes -Procedure Performed Yes -Type of Procedure Debridement -Clinical Debridement Subcutaneous -Post Debridement Size (cm) - Length 4.3 -Post Debridement Size (cm) - Width 8 -Post Debridement Size (cm) - Depth 2.0 -Total Square Cm 34.4 -Wound/Ulcer Outcome Not Healed -Ulcer Cleansing Rinsed/ Irrigated with Saline -Foul Odor after Cleansing No -Bioengineered Tissue No -Bleeding Controlled with Pressure -Other tunnel at 10:00 --2.0cm -Offloading No -Treatment Response Procedure Tolerated Well [See Physician Procedure note for Specifics] Pain Scale: 0-10 Numeric [Pain] -Is Patient Pain Free? Yes Musculoskeletal: No Tenderness to Palpation of Joints or Extremities Neurological: Neuro grossly intact Psych/Mental Status: Normal Affect, Appropriate Debridement Note Post-Debridement Measurements/Treatment WC - Nurse 2 - General Ulcer CM Notes Start: 07/15/19 08:47 Freq: Status: Active Protocol: Activity Type Activity Date Activity User E-Sign Co-Sign Detail Recorded Client Recorded Date Recorded By Document 07/15/19 09:26 [email or web address] [id number] 07/15/19 09:39 TAYLA 07/15/19 09:26 Wound Center Nurse 2 #3 left breast incision -Time 09:26 -Correct Patient Yes -Correct Side, Site, Position Yes -Correct Procedure Yes -Procedure Performed Yes -Type of Procedure Debridement -Clinical Debridement Subcutaneous -Post Debridement Size (cm) - Length 2.3 -Post Debridement Size (cm) - Width 2.5 -Post Debridement Size (cm) - Depth 1.0 -Total Square Cm 5.75 -Wound/Ulcer Outcome Not Healed -Ulcer Cleansing Rinsed/ Irrigated with Saline -Foul Odor after Cleansing No -Bioengineered Tissue No -Bleeding Controlled with Pressure -Other tunnel at 6:00- -1.1cm -Offloading No -Treatment Response Procedure Tolerated Well #2 right breast -Time 09:26 -Correct Patient Yes -Correct Side, Site, Position Yes -Correct Procedure Yes -Procedure Performed Yes -Type of Procedure Debridement -Clinical Debridement Subcutaneous -Post Debridement Size (cm) - Length 4.3 -Post Debridement Size (cm) - Width 8 -Post Debridement Size (cm) - Depth 2.0 -Total Square Cm 34.4 -Wound/Ulcer Outcome Not Healed -Ulcer Cleansing Rinsed/ Irrigated with Saline -Foul Odor after Cleansing No -Bioengineered Tissue No -Bleeding Controlled with Pressure -Other tunnel at 10:00 --2.0cm -Offloading No -Treatment Response Procedure Tolerated Well Pain Scale: 0-10 Numeric Is Patient Pain Free? Yes Wound debrided: breast Laterality: Right Type of Debridement: Excisional debridement Anesthesia Used: 4% Lidocaine Solution, 5% Lidocaine Gel Depth: Down to and including healthy tissue, in the subcutaneous layer Percentage of wound debrided: 100 Instrument Used: 7mm curette Tissue Removed: Subcutaneous tissue and slough Severity: Fat Layer Exposed Amount of bleeding with debridement: Mild Bleeding Controlled with: Pressure, Compression and gauze Patient tolerated procedure well Assessment/Plan Assessment: 1. Right breast wound. 2. Bilateral breast reduction. 3. Wound infection. 4. Smoker Plan: On 06/21/19 She underwent bilateral breast reduction. She was admitted on 07/05/19 with elevated WBC and compromised wound healing. On 07/08/19 right breast eschar was debrided in the hospital to make wound care easier and to drain infection. Wound VAC was started along with PICC line placement and Ceftriaxone IV. Wound cultures on 07/08/19 postive for Proteus mirabilis, Enterococcus faecalis and Staphylococcus epidermidis. Removed sutures from left breast. Instructed her to have [facility] was the wound with soap and water when changing the wound VAC. Percocet renewed (28), Valium renewed (30), OARRS report reviewed. Encouraged increased protein intake and increase Vitamin C. Follow up in one week. Code Visit [id number]
[2019-07-15 15:06] LABS: Hematocrit 34.7 % (37-47); Hemoglobin 11.2 g/dL (12.0-15.0); Mean Corp Hgb Conc 32.3 g/dL (32-36); Mean Corpuscular Hgb 30.4 pg (27.0-32.0); Mean Platelet Vol. 9.4 fl (6.2-12.0); Platelet Count 437 K/mm3 (150-450); RBC Distribution Width CV 13.8 % (11.6-14.6); RBC Distribution Width SD 47.3 fl (35.1-43.9); Red Blood Count 3.69 M/mm3 (4.2-5.4); White Blood Count 15.7 K/mm3 (4.4-11.0)
[2019-07-15 15:09] LABS: Erythrocyte Sedimentation Rate 90 mm/hr (0-30)
[2019-07-15 15:18] LABS: ALB/GLOB Ratio 0.7 RATIO (0.9-2.4); AST(SGOT) 22 U/L (15-37); Alanine Aminotransfer ALT/SGPT 22 U/L (13-56); Albumin, Serum 3.2 g/dL (3.2-5.0); Alkaline Phosphatase 90 U/L (45-117); Anion Gap 6 (5-15); BUN 19 mg/dL (7-18); BUN/Creat Ratio 19.2 RATIO (10-20); Calcium,Total 9.4 mg/dL (8.5-10.1); Chloride 107 mmol/L (98-107); Creatinine, Serum 0.99 mg/dL (0.55-1.02); EST Glomerular Filtration Rate 63 mL/min (>60); Est Glom Filt Rate - Afr Amer 76 mL/min (>60); Estimated Creatinine Clearance 61.17 ml/min; Globulin 4.3 g/dL (2.2-4.2); Glucose 111 mg/dL (74-106); Potassium 4.3 mmol/L (3.5-5.1); Protein, Total 7.5 g/dL (6.4-8.2); Sodium Level 140 mmol/L (136-145)
== END 2019-07-15 23:59 ==
LOC: WC 08:28
PROVIDERS: Family Provider Family Medicine; PCP Family Medicine; Referring Provider Nurse Practitioner Family; Visit Provider Nurse Practitioner Family
DX: T81.30XA Disruption of wound, unspecified, initial encounter (principal); Y83.8 Other surgical procedures as the cause of abnormal reaction of the patient, or of later complication, without mention of misadventure at the time of the procedure; L08.9 Local infection of the skin and subcutaneous tissue, unspecified
CPT/HCPCS: 11042; 11045; 80053; 85027; 85652; 86140; 97605; 99213; G0463

== ENCOUNTER 2019-08-12 13:00 | Outpatient (RCR) | payer MEDICARE, MEDICAID, SELFPAY ==
[2019-07-16 01:22] VITALS: BP 107/62; PULSE 90; RESP 16; TEMP 35.9
[2019-07-22 09:30] VITALS: BP 106/64; PULSE 119; RESP 16; BMI 30.9
--- NOTE | 2019-07-22 23:06 | PCM.WC.PN ---
Type of Wound Date of Service: 07/22/19 Chief Complaint: Open surgical wound right breast at [facility] and new onset open surgical wound left breast at [facility]. History of Wound: Surgery 06/21/19 - Bilateral breast reduction mammaplasty. She was recently admitted to hospital on 07/05/19 with elevated WBC and compromised wound healing. On 07/08/19 the right breast eschar was debrided in the hospital to make wound care easier and to drain infection. Wound VAC was started along with PICC line placement and Ceftriaxone IV antibiotics. Wound culture from 07/08/19 was postive for Proteus mirabilis, Enterococcus faecalis and MRSE. Augmentin and Doxycycline were added. Today she denies fever. States appetite is ok. She has concerns about some wound healing compromise on the left breast at the [facility]. Progress of Wound: Right breast wound is improved and new onset left breast wound. - Physical Exam Vital Signs Temp Pulse Resp BP 96.6 F L 119 H 16 106/64 07/16/19 01:22 07/22/19 09:30 07/22/19 09:30 07/22/19 09:30 Wound Measurements and Assessment WC - Nurse 1 - General Ulcer Measurement Start: 07/22/19 09:29 Freq: Status: Active Protocol: Activity Type Activity Date Activity User E-Sign Co-Sign Detail Recorded Client Recorded Date Recorded By Document 07/22/19 09:30 [facility] [id number] 07/22/19 09:43 BM 07/22/19 09:30 Wound Center Nurse 1 [Ulcer Assessment] #3- R AREOLA -Combined with other wound No -Current Size (cm) - Length 2.4 -Current Size (cm) - Width 2.2 -Current Size (cm) - Depth 0.1 -Total Square Cm 5.28 -Date of Last Picture (Recall this 07/22/19 field) -Photo Taken Yes -Epithelialization None Present -Tunneling No -Undermining/Tunneling No -Circular Undermining No -Exudate Amt Small -Exudate Type Serosanguineous -Wound Margin Thickened -Granulation Amt Small (1-33%) -Granulation Quality [place] -Slough/Fibrin Yes -Necrosis Amt Medium (34-66%) -Necrotic Tissue Type Adherent Slough -Texture (Flavia-wound Skin Appearance) Assessed, Scarring -Moisture (Flavia-wound Skin Appearance Assessed ) -Color (Flavia-wound Skin Appearance) Assessed, Erythema -Temperature (Flavia-wound Skin No Abnormality Appearance) (Pt Warm) -Tenderness on Palpation (Flavia-wound Yes Skin Appearance) -Ulcer Cleansing SOAP AND WATER -Foul Odor after Cleansing No -Anesthetic Used 4% Lidocaine Solution #3 left breast incision -Combined with other wound No -Current Size (cm) - Length 4.8 -Current Size (cm) - Width 21 -Current Size (cm) - Depth 0.6 -Total Square Cm 100.8 -Photo Taken No -Epithelialization None Present -Tunneling Yes -Tunneling Position (O'clock) 3 -Tunneling Distance (cm) 2.8 -Undermining/Tunneling No -Circular Undermining No -Exudate Amt Medium -Exudate Type Serosanguineous -Wound Margin Distinct, Outline Attached -Granulation Amt Medium (34-66%) -Granulation Quality Red -Slough/Fibrin Yes -Necrosis Amt Medium (34-66%) -Necrotic Tissue Type Adherent Slough -Texture (Flavia-wound Skin Appearance) Assessed, Scarring -Moisture (Flavia-wound Skin Appearance Assessed ) -Color (Flavia-wound Skin Appearance) Assessed, Erythema -Temperature (Flavia-wound Skin No Abnormality Appearance) (Pt Warm) -Tenderness on Palpation (Flavia-wound Yes Skin Appearance) -Ulcer Cleansing soap and water -Foul Odor after Cleansing No -Anesthetic Used 4% Lidocaine Solution #2 right breast -Combined with other wound No -Current Size (cm) - Length 3.6 -Current Size (cm) - Width 8.5 -Current Size (cm) - Depth 0.7 -Total Square Cm 30.60 -Photo Taken No -Epithelialization None Present -Tunneling No -Undermining/Tunneling No -Circular Undermining No -Exudate Amt Small -Exudate Type Serosanguineous -Granulation Amt Medium (34-66%) -Granulation Quality Red -Slough/Fibrin Yes -Necrosis Amt Medium (34-66%) -Necrotic Tissue Type Adherent Slough -Texture (Flavia-wound Skin Appearance) Assessed, Scarring -Moisture (Flavia-wound Skin Appearance Assessed ) -Color (Flavia-wound Skin Appearance) Assessed, Erythema -Temperature (Flavia-wound Skin No Abnormality Appearance) (Pt Warm) -Tenderness on Palpation (Flavia-wound Yes Skin Appearance) -Ulcer Cleansing soap and water -Foul Odor after Cleansing No -Anesthetic Used 4% Lidocaine Solution WC - Nurse 2 - General Ulcer CM Notes Start: 07/22/19 09:29 Freq: Status: Active Protocol: Activity Type Activity Date Activity User E-Sign Co-Sign Detail Recorded Client Recorded Date Recorded By Document 07/22/19 10:34 TAYLA [id number] 07/22/19 10:36 TAYLA 07/22/19 10:34 Wound Center Nurse 2 [Procedure/Treatment] #3- R AREOLA -Time 10:35 -Correct Patient Yes -Correct Side, Site, Position Yes -Correct Procedure Yes -Procedure Performed Yes -Type of Procedure Debridement -Clinical Debridement Subcutaneous -Post Debridement Size (cm) - Length 2.5 -Post Debridement Size (cm) - Width 3.0 -Post Debridement Size (cm) - Depth 0.3 -Total Square Cm 7.50 -Wound/Ulcer Outcome Not Healed -Ulcer Cleansing Rinsed/ Irrigated with Saline -Foul Odor after Cleansing No -Bioengineered Tissue No -Bleeding Controlled with Pressure -Offloading No -Treatment Response Procedure Tolerated Well #3 left breast incision -Time 10:34 -Correct Patient Yes -Correct Side, Site, Position Yes -Correct Procedure Yes -Procedure Performed Yes -Type of Procedure Debridement -Clinical Debridement Subcutaneous -Post Debridement Size (cm) - Length 5.9 -Post Debridement Size (cm) - Width 19.0 -Post Debridement Size (cm) - Depth 1.0 -Total Square Cm 112.10 -Wound/Ulcer Outcome Not Healed -Ulcer Cleansing Rinsed/ Irrigated with Saline -Foul Odor after Cleansing No -Bioengineered Tissue No -Bleeding Controlled with Pressure -Offloading No -Treatment Response Procedure Tolerated Well #2 right breast -Time 10:35 -Correct Patient Yes -Correct Side, Site, Position Yes -Correct Procedure Yes -Procedure Performed Yes -Type of Procedure Debridement -Clinical Debridement Subcutaneous -Post Debridement Size (cm) - Length 5 -Post Debridement Size (cm) - Width 9 -Post Debridement Size (cm) - Depth 1.0 -Total Square Cm 45 -Wound/Ulcer Outcome Not Healed -Ulcer Cleansing Rinsed/ Irrigated with Saline -Foul Odor after Cleansing No -Bioengineered Tissue No -Bleeding Controlled with Pressure -Offloading No -Treatment Response Procedure Tolerated Well [See Physician Procedure note for Specifics] Pain Scale: 0-10 Numeric [Pain] -Is Patient Pain Free? Yes Debridement Note Post-Debridement Measurements/Treatment WC - Nurse 2 - General Ulcer CM Notes Start: 07/22/19 09:29 Freq: Status: Active Protocol: Activity Type Activity Date Activity User E-Sign Co-Sign Detail Recorded Client Recorded Date Recorded By Document 07/22/19 10:34 TAYLA [id number] 07/22/19 10:36 TAYLA 07/22/19 10:34 Wound Center Nurse 2 #3- R AREOLA -Time 10:35 -Correct Patient Yes -Correct Side, Site, Position Yes -Correct Procedure Yes -Procedure Performed Yes -Type of Procedure Debridement -Clinical Debridement Subcutaneous -Post Debridement Size (cm) - Length 2.5 -Post Debridement Size (cm) - Width 3.0 -Post Debridement Size (cm) - Depth 0.3 -Total Square Cm 7.50 -Wound/Ulcer Outcome Not Healed -Ulcer Cleansing Rinsed/ Irrigated with Saline -Foul Odor after Cleansing No -Bioengineered Tissue No -Bleeding Controlled with Pressure -Offloading No -Treatment Response Procedure Tolerated Well #3 left breast incision -Time 10:34 -Correct Patient Yes -Correct Side, Site, Position Yes -Correct Procedure Yes -Procedure Performed Yes -Type of Procedure Debridement -Clinical Debridement Subcutaneous -Post Debridement Size (cm) - Length 5.9 -Post Debridement Size (cm) - Width 19.0 -Post Debridement Size (cm) - Depth 1.0 -Total Square Cm 112.10 -Wound/Ulcer Outcome Not Healed -Ulcer Cleansing Rinsed/ Irrigated with Saline -Foul Odor after Cleansing No -Bioengineered Tissue No -Bleeding Controlled with Pressure -Offloading No -Treatment Response Procedure Tolerated Well #2 right breast -Time 10:35 -Correct Patient Yes -Correct Side, Site, Position Yes -Correct Procedure Yes -Procedure Performed Yes -Type of Procedure Debridement -Clinical Debridement Subcutaneous -Post Debridement Size (cm) - Length 5 -Post Debridement Size (cm) - Width 9 -Post Debridement Size (cm) - Depth 1.0 -Total Square Cm 45 -Wound/Ulcer Outcome Not Healed -Ulcer Cleansing Rinsed/ Irrigated with Saline -Foul Odor after Cleansing No -Bioengineered Tissue No -Bleeding Controlled with Pressure -Offloading No -Treatment Response Procedure Tolerated Well Pain Scale: 0-10 Numeric Is Patient Pain Free? Yes Wound debrided: #[address] [facility]. Laterality: Right Wound Grade/Stage: 2. Type of Debridement: Excisional debridement Anesthesia Used: 4% Lidocaine Solution Depth: Down to and including healthy tissue, in the subcutaneous layer Percentage of wound debrided: 100 Instrument Used: 7mm curette Tissue Removed: subcutaneous tissue. Severity: Fat Layer Exposed Amount of bleeding with debridement: Mild Bleeding Controlled with: Pressure Patient tolerated procedure well - Additional Wound Wound debrided: #[address] [facility]. Laterality: Left Wound Grade/Stage: 2. Type of Debridement: Excisional debridement Anesthesia Used: 4% Lidocaine Solution Depth: Down to and including healthy tissue, in the subcutaneous layer Percentage of wound debrided: 100 Instrument Used: Forceps, - - scissors. Tissue Removed: subcutaneous tissue and necrotic skin. Severity: Fat Layer Exposed Amount of bleeding with debridement: Mild Bleeding Controlled with: Pressure Patient tolerated procedure: Patient tolerated procedure well, - - a wound culture was obtained today. Assessment/Plan Assessment: 1. Open surgical wound right breast at [facility]. 2. Open surgical wound left breast at [facility]. 3. Bilateral macromastia. 4. s/p bilateral breast reduction mammaplasty. 5. Smoker. 6. Diabetes mellitus. Plan: The right breast wound at the [facility] is healing satisfactory. Good granulation tissue seen. Continue the VAC. The left breast wound at the [facility] was sharply debrided today and Silver dressings were started. Will plan on getting the VAC approved for the left breast wound as well. A wound culture was sent from the left breast. Wound culture from her recent hospitalization on 07/08/19 was postive for Proteus mirabilis, Enterococcus faecalis and MRSE. She is on Ceftriaxone IV along with Augmentin and Doxycycline PO. Prealbumin from 06/22/19 was 17.8. Encouraged nutritional supplementation with protein to help the healing process. Follow up one week. Encouraged patient to stop smoking as it may have deleterious effects on wound healing.
[2019-07-29 12:14] VITALS: BP 105/62; PULSE 108; RESP 16; TEMP 37.1; BMI 30.9
--- NOTE | 2019-07-29 13:35 | PN.PCM_ITS ---
(1) Wound of right breast Status: Acute Code(s): S21.001A - Unspecified open wound of right breast, initial encounter (2) Wound of left breast Status: Acute Code(s): S21.002A - Unspecified open wound of left breast, initial encounter (3) Type 2 diabetes mellitus Status: Chronic Code(s): E11.9 - Type 2 diabetes mellitus without complications (4) Smoker Status: Chronic Code(s): F17.200 - Nicotine dependence, unspecified, uncomplicated (5) Intertrigo Status: Chronic Code(s): L30.4 - Erythema intertrigo Comment: inframammary intertrigo Type of Wound Date of Service: 07/29/19 Chief Complaint: Wounds of bilateral breast s/p breast reduction History of Wound: On 06/21/19 patient under went bilateral breast reduction mammoplasty. On 07/05/19 she was admitted through the ED for right breast wound breakdown and elevated WBC. She had the right breast debrided at the bedside and wound cultures were obtained. A wound VAC was placed before she was discharged. She was discharged with a PICC line on Ceftriaxone. Wound cultures from 07/08/19 Proteus mirabilis, Enterococcus faecalis and Staphylococcus epidermidis. She was place on Augmentin and Doxycycline in addition to the Ceftriaxone. Wound culture of left breast 07/26/19 positive Staphylococcus epidermidis, Corynebacterium amycolatum. She has cerncerns about her left breast breakdown today. Progress of Wound: Right breast stable. Increased breakdown at Tzone of left breast - Physical Exam Vital Signs Temp Pulse Resp BP 98.7 F 108 H 16 105/62 07/29/19 12:14 07/29/19 12:14 07/29/19 12:14 07/29/19 12:14 General: Alert, Oriented x3, Cooperative HEENT: Atraumatic Oral: Moist Mucosa Lungs: Normal air movement Cardiovascular: Regular rate Abdomen: Soft Extremities: No edema, Capillary Refill Less than 3 Seconds Skin: Ulcer/ Wound - bilateral breast breakdown at the Tzone Wound Measurements and Assessment WC - Nurse 1 - General Ulcer Measurement Start: 07/22/19 09:29 Freq: Status: Active Protocol: Activity Type Activity Date Activity User E-Sign Co-Sign Detail Recorded Client Recorded Date Recorded By Document 07/29/19 12:14 [facility] [id number] 07/29/19 12:39 [facility] 07/29/19 12:14 Wound Center Nurse 1 [Ulcer Assessment] #4- R AREOLA -Combined with other wound No -Current Size (cm) - Length 3.1 -Current Size (cm) - Width 4.9 -Current Size (cm) - Depth 0.1 -Total Square Cm 15.19 -Photo Taken No -Epithelialization None Present -Tunneling No -Undermining/Tunneling No -Circular Undermining No -Exudate Amt Medium -Exudate Type Serous -Wound Margin Distinct, Outline Attached -Granulation Amt None Present (0 %) -Slough/Fibrin Yes -Necrosis Amt Large (67-100%) -Necrotic Tissue Type Adherent Slough -Texture (Flavia-wound Skin Appearance) Assessed, Scarring -Moisture (Flavia-wound Skin Appearance Assessed ) -Color (Flavia-wound Skin Appearance) Assessed, Erythema -Temperature (Flavia-wound Skin No Abnormality Appearance) (Pt Warm) -Tenderness on Palpation (Flavia-wound Yes Skin Appearance) -Ulcer Cleansing soap and water -Foul Odor after Cleansing No -Anesthetic Used 4% Lidocaine Solution #3 left breast incision -Combined with other wound No -Current Size (cm) - Length 9 -Current Size (cm) - Width 24.3 -Current Size (cm) - Depth 1.8 -Total Square Cm 218.7 -Photo Taken No -Epithelialization None Present -Tunneling No -Undermining/Tunneling No -Circular Undermining No -Exudate Amt Medium -Exudate Type Serosanguineous -Wound Margin Distinct, Outline Attached -Granulation Amt Medium (34-66%) -Granulation Quality Red -Slough/Fibrin Yes -Necrosis Amt Medium (34-66%) -Necrotic Tissue Type Adherent Slough -Texture (Flavia-wound Skin Appearance) Assessed, Scarring -Moisture (Flavia-wound Skin Appearance Assessed ) -Color (Flavia-wound Skin Appearance) Assessed -Temperature (Flavia-wound Skin No Abnormality Appearance) (Pt Warm) -Tenderness on Palpation (Flavia-wound Yes Skin Appearance) -Ulcer Cleansing soap and water -Foul Odor after Cleansing No -Anesthetic Used 4% Lidocaine Solution #2 right breast -Combined with other wound No -Current Size (cm) - Length 2.8 -Current Size (cm) - Width 11.4 -Current Size (cm) - Depth 0.4 -Total Square Cm 31.92 -Photo Taken No -Epithelialization None Present -Tunneling No -Undermining/Tunneling No -Circular Undermining No -Exudate Amt Small -Exudate Type Serosanguineous -Wound Margin Distinct, Outline Attached -Granulation Amt Medium (34-66%) -Granulation Quality Red -Slough/Fibrin Yes -Necrosis Amt Medium (34-66%) -Necrotic Tissue Type Adherent Slough -Texture (Flavia-wound Skin Appearance) Assessed, Scarring -Moisture (Flavia-wound Skin Appearance Assessed ) -Color (Flavia-wound Skin Appearance) Assessed -Temperature (Flavia-wound Skin No Abnormality Appearance) (Pt Warm) -Tenderness on Palpation (Flavia-wound Yes Skin Appearance) -Ulcer Cleansing soap and water -Foul Odor after Cleansing No -Anesthetic Used 4% Lidocaine Solution WC - Nurse 2 - General Ulcer CM Notes Start: 07/22/19 09:29 Freq: Status: Active Protocol: Activity Type Activity Date Activity User E-Sign Co-Sign Detail Recorded Client Recorded Date Recorded By Document 07/29/19 13:00 [id number] 07/29/19 13:24 07/29/19 13:00 Wound Center Nurse 2 [Procedure/Treatment] #4- R AREOLA -Time 13:01 -Correct Patient Yes -Correct Side, Site, Position Yes -Correct Procedure Yes -Procedure Performed Yes -Type of Procedure Debridement -Clinical Debridement Subcutaneous -Post Debridement Size (cm) - Length 2.1 -Post Debridement Size (cm) - Width 3.0 -Post Debridement Size (cm) - Depth 0.3 -Total Square Cm 6.30 -Wound/Ulcer Outcome Not Healed -Ulcer Cleansing Rinsed/ Irrigated with Saline -Foul Odor after Cleansing No -Bioengineered Tissue No -Bleeding Controlled with Pressure -Offloading No -Treatment Response Procedure Tolerated Well #3 left breast incision -Time 13:01 -Correct Patient Yes -Correct Side, Site, Position Yes -Correct Procedure Yes -Procedure Performed Yes -Type of Procedure Debridement -Clinical Debridement Subcutaneous -Post Debridement Size (cm) - Length 5.5 -Post Debridement Size (cm) - Width 20.0 -Post Debridement Size (cm) - Depth 2.3 -Total Square Cm 110.00 -Wound/Ulcer Outcome Not Healed -Ulcer Cleansing Rinsed/ Irrigated with Saline -Foul Odor after Cleansing No -Bioengineered Tissue No -Bleeding Controlled with Pressure -Offloading No -Treatment Response Procedure Tolerated Well #2 right breast -Time 13:01 -Correct Patient Yes -Correct Side, Site, Position Yes -Correct Procedure Yes -Procedure Performed Yes -Type of Procedure Debridement -Clinical Debridement Subcutaneous -Post Debridement Size (cm) - Length 4 -Post Debridement Size (cm) - Width 10 -Post Debridement Size (cm) - Depth 1.3 -Total Square Cm 40 -Wound/Ulcer Outcome Not Healed -Ulcer Cleansing Rinsed/ Irrigated with Saline -Foul Odor after Cleansing No -Bioengineered Tissue No -Bleeding Controlled with Pressure -Offloading No -Treatment Response Procedure Tolerated Well [See Physician Procedure note for Specifics] Pain Scale: 0-10 Numeric [Pain] -Is Patient Pain Free? Yes Musculoskeletal: No Tenderness to Palpation of Joints or Extremities Neurological: Neuro grossly intact Psych/Mental Status: Normal Affect, Appropriate Debridement Note Post-Debridement Measurements/Treatment WC - Nurse 2 - General Ulcer CM Notes Start: 07/22/19 09:29 Freq: Status: Active Protocol: Activity Type Activity Date Activity User E-Sign Co-Sign Detail Recorded Client Recorded Date Recorded By Document 07/22/19 10:34 [id number] 07/22/19 10:36 Document 07/29/19 13:00 [id number] 07/29/19 13:24 07/22/19 07/29/19 10:34 13:00 Wound Center Nurse 2 #4- R AREOLA -Time 10:35 13:01 -Correct Patient Yes Yes -Correct Side, Site, Position Yes Yes -Correct Procedure Yes Yes -Procedure Performed Yes Yes -Type of Procedure Debridement Debridement -Clinical Debridement Subcutaneous Subcutaneous -Post Debridement Size (cm) - Length 2.5 2.1 -Post Debridement Size (cm) - Width 3.0 3.0 -Post Debridement Size (cm) - Depth 0.3 0.3 -Total Square Cm 7.50 6.30 -Wound/Ulcer Outcome Not Healed Not Healed -Ulcer Cleansing Rinsed/ Rinsed/ Irrigated with Irrigated with Saline Saline -Foul Odor after Cleansing No No -Bioengineered Tissue No No -Bleeding Controlled with Pressure Pressure -Offloading No No -Treatment Response Procedure Procedure Tolerated Well Tolerated Well #3 left breast incision -Time 10:34 13:01 -Correct Patient Yes Yes -Correct Side, Site, Position Yes Yes -Correct Procedure Yes Yes -Procedure Performed Yes Yes -Type of Procedure Debridement Debridement -Clinical Debridement Subcutaneous Subcutaneous -Post Debridement Size (cm) - Length 5.9 5.5 -Post Debridement Size (cm) - Width 19.0 20.0 -Post Debridement Size (cm) - Depth 1.0 2.3 -Total Square Cm 112.10 110.00 -Wound/Ulcer Outcome Not Healed Not Healed -Ulcer Cleansing Rinsed/ Rinsed/ Irrigated with Irrigated with Saline Saline -Foul Odor after Cleansing No No -Bioengineered Tissue No No -Bleeding Controlled with Pressure Pressure -Offloading No No -Treatment Response Procedure Procedure Tolerated Well Tolerated Well #2 right breast -Time 10:35 13:01 -Correct Patient Yes Yes -Correct Side, Site, Position Yes Yes -Correct Procedure Yes Yes -Procedure Performed Yes Yes -Type of Procedure Debridement Debridement -Clinical Debridement Subcutaneous Subcutaneous -Post Debridement Size (cm) - Length 5 4 -Post Debridement Size (cm) - Width 9 10 -Post Debridement Size (cm) - Depth 1.0 1.3 -Total Square Cm 45 40 -Wound/Ulcer Outcome Not Healed Not Healed -Ulcer Cleansing Rinsed/ Rinsed/ Irrigated with Irrigated with Saline Saline -Foul Odor after Cleansing No No -Bioengineered Tissue No No -Bleeding Controlled with Pressure Pressure -Offloading No No -Treatment Response Procedure Procedure Tolerated Well Tolerated Well Pain Scale: 0-10 Numeric Is Patient Pain Free? Yes Yes Wound debrided: breast Laterality: Right Type of Debridement: Excisional debridement Anesthesia Used: 4% Lidocaine Solution, 5% Lidocaine Gel Depth: Down to and including healthy tissue, in the subcutaneous layer Percentage of wound debrided: 100 Instrument Used: 7mm curette Tissue Removed: Subcutaneous tissue and slough Severity: Fat Layer Exposed Amount of bleeding with debridement: Mild Bleeding Controlled with: Pressure, Compression and gauze Patient tolerated procedure well - Additional Wound Wound debrided: Left breast ulcer Laterality: Left Type of Debridement: Excisional debridement Anesthesia Used: 4% Lidocaine Solution, 5% Lidocaine Gel Depth: Down to and including healthy tissue, in the subcutaneous layer Percentage of wound debrided: 100 Instrument Used: 7mm curette, - - scissors Tissue Removed: Necrotic adipose tissue and subcutaneous tissue and slough Severity: Fat Layer Exposed Amount of bleeding with debridement: Moderate Bleeding Controlled with: Pressure, Compression and gauze Patient tolerated procedure: Patient tolerated procedure well Assessment/Plan Assessment: 1. Right breast wound breakdwon. 2. Left breast wound breakdown at Tzone. 3. s/p bilateral breast reduction mammoplasty. 4. Nicotine abuse. 5. Type 2 diabetes Plan: Left breast with breakdown at the Tzone with fat necrosis. Debrided the necrotic tissue and slough. Wound VAC to right breast and have obtained approval for wound VAC to left breast. Right areola edge will apply silver dressing daily. May shower and wash wounds with soap and water with wound VAC dressing changes. Continue antibiotics. Follow up in one week. Code Visit [id number]
[2019-08-05 18:13] LABS: Hematocrit 36.6 % (37-47); Hemoglobin 11.9 g/dL (12.0-15.0); Mean Corp Hgb Conc 32.5 g/dL (32-36); Mean Corpuscular Hgb 29.7 pg (27.0-32.0); Mean Corpuscular Volume 91.3 fL (81-99); Mean Platelet Vol. 9.9 fl (6.2-12.0); Platelet Count 447 K/mm3 (150-450); RBC Distribution Width CV 13.6 % (11.6-14.6); RBC Distribution Width SD 46.1 fl (35.1-43.9); Red Blood Count 4.01 M/mm3 (4.2-5.4); White Blood Count 15.7 K/mm3 (4.4-11.0)
[2019-08-05 18:22] LABS: Erythrocyte Sedimentation Rate 88 mm/hr (0-30)
[2019-08-05 18:34] LABS: ALB/GLOB Ratio 0.8 RATIO (0.9-2.4); AST(SGOT) 27 U/L (15-37); Alanine Aminotransfer ALT/SGPT 18 U/L (13-56); Albumin, Serum 3.4 g/dL (3.2-5.0); Alkaline Phosphatase 81 U/L (45-117); Anion Gap 7 (5-15); BUN 16 mg/dL (7-18); BUN/Creat Ratio 14.2 RATIO (10-20); Calcium,Total 9.4 mg/dL (8.5-10.1); Chloride 106 mmol/L (98-107); Creatinine, Serum 1.13 mg/dL (0.55-1.02); EST Glomerular Filtration Rate 54 mL/min (>60); Est Glom Filt Rate - Afr Amer 66 mL/min (>60); Globulin 4.4 g/dL (2.2-4.2); Glucose 74 mg/dL (74-106); Potassium 3.5 mmol/L (3.5-5.1); Protein, Total 7.8 g/dL (6.4-8.2); Sodium Level 139 mmol/L (136-145)
[2019-08-12 13:13] VITALS: BP 97/63; PULSE 102; RESP 18; TEMP 37.5; BMI 30.9
--- NOTE | 2019-08-12 18:37 | PN.PCM_ITS ---
Type of Wound Date of Service: 08/12/19 Chief Complaint: Open surgical wounds bilateral breasts at [facility]. History of Wound: Surgery 06/21/19 - Bilateral breast reduction mammaplasty. She was recently admitted to hospital on 07/05/19 with elevated WBC and compromised wound healing. On 07/08/19 the right breast eschar was debrided in the hospital to make wound care easier and to drain infection. Wound VAC was started along with PICC line placement and Ceftriaxone IV antibiotics. Wound culture from 07/08/19 was postive for Proteus mirabilis, Enterococcus faecalis and MRSE. Augmentin and Doxycycline were added. On 07/22/19, there was wound breakdown on the left breast at the [facility]. Debridement was done and a wound culture showed MRSE and Corynebacterium amycolatum. VAC was started on the left breast as well. Today she denies fever. States appetite is ok. Her labs from today showed a Creatinine increase to 1.32. Progress of Wound: Bilateral breast wounds at [facility] have improved. - Physical Exam Vital Signs Temp Pulse Resp BP 99.5 F H 102 H 18 97/63 08/12/19 13:13 08/12/19 13:13 08/12/19 13:13 08/12/19 13:13 Wound Measurements and Assessment WC - Nurse 1 - General Ulcer Measurement Start: 07/22/19 09:29 Freq: Status: Active Protocol: Activity Type Activity Date Activity User E-Sign Co-Sign Detail Recorded Client Recorded Date Recorded By Document 08/12/19 13:13 [facility] [id number] 08/12/19 13:34 [facility] 08/12/19 13:13 Wound Center Nurse 1 [Ulcer Assessment] #4- R AREOLA -Combined with other wound No -Current Size (cm) - Length 2 -Current Size (cm) - Width 2.3 -Current Size (cm) - Depth 0.2 -Total Square Cm 4.6 -Photo Taken No -Epithelialization Small 1-33% -Tunneling No -Undermining/Tunneling No -Circular Undermining No -Exudate Amt Small -Exudate Type Serosanguineous -Wound Margin Distinct, Outline Attached -Granulation Amt Medium (34-66%) -Granulation Quality [place] -Slough/Fibrin Yes -Necrosis Amt Small (1-33%) -Necrotic Tissue Type Adherent Slough -Texture (Flavia-wound Skin Appearance) Assessed, Scarring -Moisture (Flavia-wound Skin Appearance Assessed ) -Color (Flavia-wound Skin Appearance) Assessed -Temperature (Flavia-wound Skin No Abnormality Appearance) (Pt Warm) -Tenderness on Palpation (Flavia-wound No Skin Appearance) -Ulcer Cleansing soap and water -Foul Odor after Cleansing No -Anesthetic Used 4% Lidocaine Solution #3 left breast incision -Combined with other wound No -Current Size (cm) - Length 5.6 -Current Size (cm) - Width 18.1 -Current Size (cm) - Depth 1 -Total Square Cm 101.36 -Photo Taken No -Epithelialization Small 1-33% -Tunneling No -Undermining/Tunneling Yes -Undermining/Tunneling Starts (O' 10 clock) -Undermining/Tunneling Ends (O'clock) 11 -Maximum Distance (cm) 1.1 -Circular Undermining No -Exudate Amt Medium -Exudate Type Serosanguineous -Wound Margin Distinct, Outline Attached -Granulation Amt Medium (34-66%) -Granulation Quality Pale,Red -Slough/Fibrin Yes -Necrosis Amt Medium (34-66%) -Necrotic Tissue Type Adherent Slough -Texture (Flavia-wound Skin Appearance) Assessed, Scarring -Moisture (Flavia-wound Skin Appearance Assessed ) -Color (Flavia-wound Skin Appearance) Assessed -Temperature (Flavia-wound Skin No Abnormality Appearance) (Pt Warm) -Tenderness on Palpation (Flavia-wound No Skin Appearance) -Ulcer Cleansing soap and water -Foul Odor after Cleansing No -Anesthetic Used 4% Lidocaine Solution #2 right breast -Combined with other wound No -Current Size (cm) - Length 3.9 -Current Size (cm) - Width 10.6 -Current Size (cm) - Depth 0.2 -Total Square Cm 41.34 -Photo Taken No -Epithelialization Small 1-33% -Tunneling No -Undermining/Tunneling No -Circular Undermining No -Exudate Amt Small -Exudate Type Serosanguineous -Wound Margin Distinct, Outline Attached -Granulation Amt Medium (34-66%) -Granulation Quality Pale,Red -Slough/Fibrin Yes -Necrosis Amt Small (1-33%) -Necrotic Tissue Type Adherent Slough -Texture (Flavia-wound Skin Appearance) Assessed, Scarring -Moisture (Flavia-wound Skin Appearance Assessed ) -Color (Flavia-wound Skin Appearance) Assessed -Temperature (Flavia-wound Skin No Abnormality Appearance) (Pt Warm) -Tenderness on Palpation (Flaiva-wound No Skin Appearance) -Ulcer Cleansing soap and water -Foul Odor after Cleansing No -Anesthetic Used 4% Lidocaine Solution WC - Nurse 2 - General Ulcer CM Notes Start: 07/22/19 09:29 Freq: Status: Active Protocol: Activity Type Activity Date Activity User E-Sign Co-Sign Detail Recorded Client Recorded Date Recorded By Document 08/12/19 14:02 TAYLA [id number] 08/12/19 14:04 TAYLA 08/12/19 14:02 Wound Center Nurse 2 [Procedure/Treatment] #4- R AREOLA -Time 14:02 -Correct Patient Yes -Correct Side, Site, Position Yes -Correct Procedure Yes -Procedure Performed Yes -Type of Procedure Debridement -Clinical Debridement Subcutaneous -Post Debridement Size (cm) - Length 2.1 -Post Debridement Size (cm) - Width 2.3 -Post Debridement Size (cm) - Depth 0.2 -Total Square Cm 4.83 -Wound/Ulcer Outcome Not Healed -Ulcer Cleansing Rinsed/ Irrigated with Saline -Foul Odor after Cleansing No -Bioengineered Tissue No -Bleeding Controlled with Pressure -Offloading No -Treatment Response Procedure Tolerated Well #3 left breast incision -Time 14:02 -Correct Patient Yes -Correct Side, Site, Position Yes -Correct Procedure Yes -Procedure Performed Yes -Type of Procedure Debridement -Clinical Debridement Subcutaneous -Post Debridement Size (cm) - Length 5.6 -Post Debridement Size (cm) - Width 18.2 -Post Debridement Size (cm) - Depth 1.0 -Total Square Cm 101.92 -Wound/Ulcer Outcome Not Healed -Ulcer Cleansing Rinsed/ Irrigated with Saline -Foul Odor after Cleansing No -Bioengineered Tissue No -Bleeding Controlled with Pressure -Offloading No -Treatment Response Procedure Tolerated Well #2 right breast -Time 14:03 -Correct Patient Yes -Correct Side, Site, Position Yes -Correct Procedure Yes -Procedure Performed Yes -Type of Procedure Debridement -Clinical Debridement Subcutaneous -Post Debridement Size (cm) - Length 4 -Post Debridement Size (cm) - Width 10.6 -Post Debridement Size (cm) - Depth 0.2 -Total Square Cm 42.4 -Wound/Ulcer Outcome Not Healed -Ulcer Cleansing Rinsed/ Irrigated with Saline -Foul Odor after Cleansing No -Bioengineered Tissue No -Bleeding Controlled with Pressure -Offloading No -Treatment Response Procedure Tolerated Well [See Physician Procedure note for Specifics] Pain Scale: 0-10 Numeric [Pain] -Is Patient Pain Free? Yes Debridement Note Post-Debridement Measurements/Treatment WC - Nurse 2 - General Ulcer CM Notes Start: 07/22/19 09:29 Freq: Status: Active Protocol: Activity Type Activity Date Activity User E-Sign Co-Sign Detail Recorded Client Recorded Date Recorded By Document 07/22/19 10:34 [id number] 07/22/19 10:36 Document 07/29/19 13:00 [id number] 07/29/19 13:24 JF Document 08/12/19 14:02 [id number] 08/12/19 14:04 07/22/19 07/29/19 08/12/19 10:34 13:00 14:02 Wound Center Nurse 2 #4- R AREOLA -Time 10:35 13:01 14:02 -Correct Patient Yes Yes Yes -Correct Side, Site, Position Yes Yes Yes -Correct Procedure Yes Yes Yes -Procedure Performed Yes Yes Yes -Type of Procedure Debridement Debridement Debridement -Clinical Debridement Subcutaneous Subcutaneous Subcutaneous -Post Debridement Size (cm) - Length 2.5 2.1 2.1 -Post Debridement Size (cm) - Width 3.0 3.0 2.3 -Post Debridement Size (cm) - Depth 0.3 0.3 0.2 -Total Square Cm 7.50 6.30 4.83 -Wound/Ulcer Outcome Not Healed Not Healed Not Healed -Ulcer Cleansing Rinsed/ Rinsed/ Rinsed/ Irrigated with Irrigated with Irrigated with Saline Saline Saline -Foul Odor after Cleansing No No No -Bioengineered Tissue No No No -Bleeding Controlled with Pressure Pressure Pressure -Offloading No No No -Treatment Response Procedure Procedure Procedure Tolerated Well Tolerated Well Tolerated Well #3 left breast incision -Time 10:34 13:01 14:02 -Correct Patient Yes Yes Yes -Correct Side, Site, Position Yes Yes Yes -Correct Procedure Yes Yes Yes -Procedure Performed Yes Yes Yes -Type of Procedure Debridement Debridement Debridement -Clinical Debridement Subcutaneous Subcutaneous Subcutaneous -Post Debridement Size (cm) - Length 5.9 5.5 5.6 -Post Debridement Size (cm) - Width 19.0 20.0 18.2 -Post Debridement Size (cm) - Depth 1.0 2.3 1.0 -Total Square Cm 112.10 110.00 101.92 -Wound/Ulcer Outcome Not Healed Not Healed Not Healed -Ulcer Cleansing Rinsed/ Rinsed/ Rinsed/ Irrigated with Irrigated with Irrigated with Saline Saline Saline -Foul Odor after Cleansing No No No -Bioengineered Tissue No No No -Bleeding Controlled with Pressure Pressure Pressure -Offloading No No No -Treatment Response Procedure Procedure Procedure Tolerated Well Tolerated Well Tolerated Well #2 right breast -Time 10:35 13:01 14:03 -Correct Patient Yes Yes Yes -Correct Side, Site, Position Yes Yes Yes -Correct Procedure Yes Yes Yes -Procedure Performed Yes Yes Yes -Type of Procedure Debridement Debridement Debridement -Clinical Debridement Subcutaneous Subcutaneous Subcutaneous -Post Debridement Size (cm) - Length 5 4 4 -Post Debridement Size (cm) - Width 9 10 10.6 -Post Debridement Size (cm) - Depth 1.0 1.3 0.2 -Total Square Cm 45 40 42.4 -Wound/Ulcer Outcome Not Healed Not Healed Not Healed -Ulcer Cleansing Rinsed/ Rinsed/ Rinsed/ Irrigated with Irrigated with Irrigated with Saline Saline Saline -Foul Odor after Cleansing No No No -Bioengineered Tissue No No No -Bleeding Controlled with Pressure Pressure Pressure -Offloading No No No -Treatment Response Procedure Procedure Procedure Tolerated Well Tolerated Well Tolerated Well Pain Scale: 0-10 Numeric Is Patient Pain Free? Yes Yes Yes Wound debrided: #[address] [facility]. Laterality: Right Wound Grade/Stage: 2. Type of Debridement: Excisional debridement Anesthesia Used: 4% Lidocaine Solution Depth: Down to and including healthy tissue, in the subcutaneous layer Percentage of wound debrided: 100 Instrument Used: 5mm curette Tissue Removed: subcutaneous tissue. Severity: Fat Layer Exposed Amount of bleeding with debridement: Mild Bleeding Controlled with: Pressure Patient tolerated procedure well - Additional Wound Wound debrided: #3 Left breast at one. Laterality: Left Wound Grade/Stage: 2. Type of Debridement: Excisional debridement Anesthesia Used: 4% Lidocaine Solution Depth: Down to and including healthy tissue, in the subcutaneous layer Percentage of wound debrided: 100 Instrument Used: 5mm curette Tissue Removed: subcutaneous tissue. Severity: Fat Layer Exposed Amount of bleeding with debridement: Mild Bleeding Controlled with: Pressure Patient tolerated procedure: Patient tolerated procedure well Assessment/Plan Assessment: 1. Open surgical wound right breast at [facility]. 2. Open surgical wound left breast at [facility]. 3. Bilateral macromastia. 4. s/p bilateral br east reduction mammaplasty. 5. Smoker. 6. Diabetes mellitus. 7. Increased Creatinine, probably medication related from antibiotics. Plan: Bilateral breast wounds at the [facility] are healing satisfactory. Good granulation tissue seen. Continue the VAC. A wound culture from 07/22/19 was sent from the left breast and showed MRSE and Corynebacterium amycolatum. Wound culture from her recent hospitalization on 07/08/19 was postive for Proteus mirabilis, Enterococcus faecalis and MRSE. She is on Ceftriaxone IV along with Augmentin and Doxycycline PO. However, the weekly labs from today showed a Creatinine of 1.32. So will stop the Ceftriaxone and continue the Augmentin and Doxycycline. Will check the labs again next week to monitor the Creatinine. Prealbumin from 06/22/19 was 17.8. Encouraged nutritional supplementation with protein to help the healing process. Renewed her Percocet for pain (40 tabs). Follow up one week. Encouraged patient to stop smoking as it may have deleterious effects on wound healing.
== END 2019-08-15 23:59 ==
LOC: WC 13:00
PROVIDERS: Family Provider Family Medicine; PCP Family Medicine; Referring Provider Nurse Practitioner Family; Visit Provider Nurse Practitioner Family
DX: T81.31XA Disruption of external operation (surgical) wound, not elsewhere classified, initial encounter (principal); Y83.8 Other surgical procedures as the cause of abnormal reaction of the patient, or of later complication, without mention of misadventure at the time of the procedure; N62 Hypertrophy of breast; E11.9 Type 2 diabetes mellitus without complications; T81.89XA Other complications of procedures, not elsewhere classified, initial encounter; F17.200 Nicotine dependence, unspecified, uncomplicated; L30.4 Erythema intertrigo
CPT/HCPCS: 11042; 11045; 80053; 85027; 85652; 86140; 87070; 87075; 87077; 87186; 87205; 97606

== ENCOUNTER 2019-08-12 13:18 | Outpatient (RCR) | payer MEDICARE, MEDICAID, SELFPAY ==
[2019-07-22 09:30] VITALS: BMI 30.9
[2019-07-24 15:33] LABS: Erythrocyte Sedimentation Rate 56 mm/hr (0-30)
[2019-07-24 15:34] LABS: ALB/GLOB Ratio 0.7 RATIO (0.9-2.4); AST(SGOT) 16 U/L (15-37); Alanine Aminotransfer ALT/SGPT 17 U/L (13-56); Albumin, Serum 3.1 g/dL (3.2-5.0); Alkaline Phosphatase 74 U/L (45-117); Anion Gap 10 (5-15); BUN 8 mg/dL (7-18); BUN/Creat Ratio 8.7 RATIO (10-20); Calcium,Total 9.1 mg/dL (8.5-10.1); Chloride 109 mmol/L (98-107); Creatinine, Serum 0.92 mg/dL (0.55-1.02); EST Glomerular Filtration Rate 69 mL/min (>60); Est Glom Filt Rate - Afr Amer 84 mL/min (>60); Globulin 4.3 g/dL (2.2-4.2); Glucose 166 mg/dL (74-106); Potassium 3.4 mmol/L (3.5-5.1); Protein, Total 7.4 g/dL (6.4-8.2); Sodium Level 143 mmol/L (136-145)
[2019-07-24 15:39] LABS: Hematocrit 37.3 % (37-47); Hemoglobin 11.9 g/dL (12.0-15.0); Mean Corp Hgb Conc 31.9 g/dL (32-36); Mean Corpuscular Hgb 30.1 pg (27.0-32.0); Mean Corpuscular Volume 94.4 fL (81-99); Mean Platelet Vol. 9.7 fl (6.2-12.0); Platelet Count 401 K/mm3 (150-450); RBC Distribution Width CV 13.4 % (11.6-14.6); RBC Distribution Width SD 46.4 fl (35.1-43.9); Red Blood Count 3.95 M/mm3 (4.2-5.4); White Blood Count 13.5 K/mm3 (4.4-11.0)
[2019-07-29 16:57] LABS: Hematocrit 38.2 % (37-47); Hemoglobin 12.3 g/dL (12.0-15.0); Mean Corp Hgb Conc 32.2 g/dL (32-36); Mean Corpuscular Hgb 29.8 pg (27.0-32.0); Mean Corpuscular Volume 92.5 fL (81-99); Mean Platelet Vol. 9.5 fl (6.2-12.0); Platelet Count 449 K/mm3 (150-450); RBC Distribution Width CV 13.6 % (11.6-14.6); RBC Distribution Width SD 46.2 fl (35.1-43.9); Red Blood Count 4.13 M/mm3 (4.2-5.4); White Blood Count 17.8 K/mm3 (4.4-11.0)
[2019-07-29 17:10] LABS: Erythrocyte Sedimentation Rate 80 mm/hr (0-30)
[2019-07-29 17:14] LABS: ALB/GLOB Ratio 0.7 RATIO (0.9-2.4); AST(SGOT) 18 U/L (15-37); Alanine Aminotransfer ALT/SGPT 15 U/L (13-56); Albumin, Serum 3.3 g/dL (3.2-5.0); Alkaline Phosphatase 79 U/L (45-117); Anion Gap 5 (5-15); BUN 13 mg/dL (7-18); BUN/Creat Ratio 12.1 RATIO (10-20); Calcium,Total 9.2 mg/dL (8.5-10.1); Chloride 108 mmol/L (98-107); Creatinine, Serum 1.07 mg/dL (0.55-1.02); EST Glomerular Filtration Rate 58 mL/min (>60); Est Glom Filt Rate - Afr Amer 70 mL/min (>60); Globulin 4.6 g/dL (2.2-4.2); Glucose 130 mg/dL (74-106); Potassium 4.2 mmol/L (3.5-5.1); Protein, Total 7.9 g/dL (6.4-8.2); Sodium Level 138 mmol/L (136-145)
[2019-08-12 13:57] LABS: Erythrocyte Sedimentation Rate 57 mm/hr (0-30)
[2019-08-12 13:58] LABS: Hematocrit 38.7 % (37-47); Hemoglobin 12.6 g/dL (12.0-15.0); Mean Corp Hgb Conc 32.6 g/dL (32-36); Mean Corpuscular Hgb 30.1 pg (27.0-32.0); Mean Corpuscular Volume 92.6 fL (81-99); Mean Platelet Vol. 10.1 fl (6.2-12.0); Platelet Count 413 K/mm3 (150-450); RBC Distribution Width CV 13.5 % (11.6-14.6); RBC Distribution Width SD 45.8 fl (35.1-43.9); Red Blood Count 4.18 M/mm3 (4.2-5.4); White Blood Count 15.8 K/mm3 (4.4-11.0)
[2019-08-12 14:09] LABS: ALB/GLOB Ratio 0.8 RATIO (0.9-2.4); AST(SGOT) 18 U/L (15-37); Alanine Aminotransfer ALT/SGPT 14 U/L (13-56); Albumin, Serum 3.5 g/dL (3.2-5.0); Alkaline Phosphatase 90 U/L (45-117); Anion Gap 8 (5-15); BUN 20 mg/dL (7-18); BUN/Creat Ratio 15.2 RATIO (10-20); Calcium,Total 9.6 mg/dL (8.5-10.1); Chloride 103 mmol/L (98-107); Creatinine, Serum 1.32 mg/dL (0.55-1.02); EST Glomerular Filtration Rate 45 mL/min (>60); Est Glom Filt Rate - Afr Amer 55 mL/min (>60); Globulin 4.6 g/dL (2.2-4.2); Glucose 107 mg/dL (74-106); Potassium 3.6 mmol/L (3.5-5.1); Protein, Total 8.1 g/dL (6.4-8.2); Sodium Level 137 mmol/L (136-145)
== END 2019-08-15 23:59 ==
LOC: HHLAB 13:18
PROVIDERS: Family Provider Family Medicine; PCP Family Medicine; Referring Provider Surgery; Visit Provider Surgery
DX: N62 Hypertrophy of breast (principal); E11.9 Type 2 diabetes mellitus without complications; T81.89XA Other complications of procedures, not elsewhere classified, initial encounter
CPT/HCPCS: 80053; 85027; 85652; 86140

== ENCOUNTER 2019-08-18 11:09 | Outpatient (RCR) | payer MEDICARE, MEDICAID, SELFPAY ==
[2019-08-18 11:24] LABS: Erythrocyte Sedimentation Rate 73 mm/hr (0-30)
[2019-08-18 11:25] LABS: Hemoglobin 13.2 g/dL (12.0-15.0); Mean Corp Hgb Conc 32.2 g/dL (32-36); Mean Corpuscular Hgb 29.7 pg (27.0-32.0); Mean Corpuscular Volume 92.1 fL (81-99); Mean Platelet Vol. 10.5 fl (6.2-12.0); Platelet Count 422 K/mm3 (150-450); RBC Distribution Width CV 13.1 % (11.6-14.6); RBC Distribution Width SD 44.8 fl (35.1-43.9); Red Blood Count 4.45 M/mm3 (4.2-5.4); White Blood Count 19.9 K/mm3 (4.4-11.0)
[2019-08-18 11:53] LABS: ALB/GLOB Ratio 0.8 RATIO (0.9-2.4); AST(SGOT) 16 U/L (15-37); Alanine Aminotransfer ALT/SGPT 16 U/L (13-56); Albumin, Serum 3.4 g/dL (3.2-5.0); Alkaline Phosphatase 94 U/L (45-117); Anion Gap 9 (5-15); BUN 17 mg/dL (7-18); BUN/Creat Ratio 17.4 RATIO (10-20); Calcium,Total 9.2 mg/dL (8.5-10.1); Chloride 110 mmol/L (98-107); Creatinine, Serum 0.98 mg/dL (0.55-1.02); EST Glomerular Filtration Rate 64 mL/min (>60); Est Glom Filt Rate - Afr Amer 78 mL/min (>60); Globulin 4.4 g/dL (2.2-4.2); Glucose 103 mg/dL (74-106); Protein, Total 7.8 g/dL (6.4-8.2); Sodium Level 142 mmol/L (136-145)
== END 2019-08-18 18:00 | disposition home or self-care (01) ==
LOC: HHLAB 11:09
PROVIDERS: Family Provider Family Medicine; PCP Family Medicine; Referring Provider Surgery; Visit Provider Surgery
DX: N62 Hypertrophy of breast (principal); E11.9 Type 2 diabetes mellitus without complications; T81.89XA Other complications of procedures, not elsewhere classified, initial encounter; N61.0 Mastitis without abscess
CPT/HCPCS: 36415; 80053; 85027; 85652; 86140

== ENCOUNTER 2019-09-09 13:00 | Outpatient (RCR) | payer MEDICARE, MEDICAID, SELFPAY ==
[2019-08-16 01:18] VITALS: BP 97/63; PULSE 102; RESP 18; TEMP 37.5
[2019-08-19 09:40] VITALS: BP 111/73; PULSE 131; RESP 22; TEMP 36.6; BMI 30.9
--- NOTE | 2019-08-19 13:40 | PN.PCM_ITS ---
(1) Wound of right breast Status: Chronic Code(s): S21.001A - Unspecified open wound of right breast, initial encounter (2) Wound of left breast Status: Chronic Code(s): S21.002A - Unspecified open wound of left breast, initial encounter (3) Type 2 diabetes mellitus Status: Chronic Code(s): E11.9 - Type 2 diabetes mellitus without complications (4) Smoker Status: Chronic Code(s): F17.200 - Nicotine dependence, unspecified, uncomplicated Type of Wound Date of Service: 08/19/19 Chief Complaint: Open surgical wounds to bilateral breast at [facility]. History of Wound: Surgery 06/21/19 - Bilateral breast reduction mammaplasty. She was recently admitted to hospital on 07/05/19 with elevated WBC and comprosed wound healing. One 07/08/19 the right breast eschar was debrided in the hospital to make wound care easier and to drain infection. Wound VAC was started along with PICC line placement and Ceftriaxone IV antibiotics. Wound culture from 07/08/19 was positive for Proteus mirabilis, Enterococcus faecalis and MRSE. Au gmentin and Doxycycline were added. On 07/22/19, there was wound breakdown on the left breast at the [facility]. Debridement was done and a wound culture showed MRSE and Corynebacterium amycolatum. VAC was started on the left breast as well. Today she denies fever. She states her appetite is ok. Her labs are now WNL. Progress of Wound: Bilateral breast wounds at [facility] have improved. - Physical Exam Vital Signs Temp Pulse Resp BP 98 F 131 H 22 H 111/73 08/19/19 09:40 08/19/19 09:40 08/19/19 09:40 08/19/19 09:40 General: Alert, Oriented x3, Cooperative HEENT: Atraumatic Oral: Moist Mucosa Lungs: Normal air movement Cardiovascular: Regular rate Extremities: Capillary Refill Less than 3 Seconds Skin: Ulcer/ Wound - bilateral breast wounds at the [facility] Wound Measurements and Assessment WC - Nurse 1 - General Ulcer Measurement Start: 08/19/19 09:40 Freq: Status: Active Protocol: Activity Type Activity Date Activity User E-Sign Co-Sign Detail Recorded Client Recorded Date Recorded By Document 08/19/19 09:50 DL [id number] 08/19/19 09:55 DL 08/19/19 09:50 Wound Center Nurse 1 [Ulcer Assessment] #4- R AREOLA -Current Size (cm) - Length 1.4 -Current Size (cm) - Width 2.5 -Current Size (cm) - Depth 0.1 -Total Square Cm 3.50 -Photo Taken No -Exudate Amt Small -Exudate Type Serosanguineous -Wound Margin Distinct, Outline Attached -Granulation Amt Medium (34-66%) -Granulation Quality Red -Necrosis Amt Medium (34-66%) -Necrotic Tissue Type Adherent Slough -Structure Exposed N/A -Texture (Flavia-wound Skin Appearance) Localized Edema -Moisture (Flavia-wound Skin Appearance No Abnormality ) -Color (Flavia-wound Skin Appearance) No Abnormality, Rubor -Temperature (Flavia-wound Skin No Abnormality Appearance) (Pt Warm) -Tenderness on Palpation (Flavia-wound No Skin Appearance) -Ulcer Cleansing Wound Cleanser -Foul Odor after Cleansing No -Anesthetic Used 5% Lidocaine Gel #3 left breast incision -Current Size (cm) - Length 4.6 -Current Size (cm) - Width 14.5 -Current Size (cm) - Depth 1.5 -Total Square Cm 66.70 -Undermining/Tunneling Starts (O' 7 clock) -Undermining/Tunneling Ends (O'clock) 10 -Maximum Distance (cm) 1.7 -Circular Undermining No -Exudate Amt Medium -Exudate Type Serosanguineous -Wound Margin Distinct, Outline Attached -Granulation Amt Medium (34-66%) -Granulation Quality Red -Necrosis Amt Medium (34-66%) -Necrotic Tissue Type Adherent Slough -Structure Exposed N/A -Texture (Flvaia-wound Skin Appearance) Scarring -Moisture (Falvia-wound Skin Appearance No Abnormality ) -Color (Flavia-wound Skin Appearance) No Abnormality -Temperature (Flavia-wound Skin No Abnormality Appearance) (Pt Warm) -Tenderness on Palpation (Flavia-wound No Skin Appearance) -Ulcer Cleansing Wound Cleanser -Foul Odor after Cleansing No -Anesthetic Used 4% Lidocaine Solution #2 right breast -Current Size (cm) - Length 3.5 -Current Size (cm) - Width 7.2 -Current Size (cm) - Depth 0.1 -Total Square Cm 25.20 -Photo Taken No -Exudate Amt Medium -Exudate Type Serosanguineous -Wound Margin Distinct, Outline Attached -Granulation Amt Medium (34-66%) -Granulation Quality Red -Necrosis Amt Medium (34-66%) -Necrotic Tissue Type Adherent Slough -Structure Exposed N/A -Texture (Flavia-wound Skin Appearance) Scarring -Moisture (Flavia-wound Skin Appearance No Abnormality ) -Color (Flavia-wound Skin Appearance) No Abnormality -Temperature (Flavia-wound Skin No Abnormality Appearance) (Pt Warm) -Tenderness on Palpation (Flavia-wound No Skin Appearance) -Ulcer Cleansing Wound Cleanser -Foul Odor after Cleansing No -Anesthetic Used 4% Lidocaine Solution WC - Nurse 2 - General Ulcer CM Notes Start: 08/19/19 09:40 Freq: Status: Active Protocol: Activity Type Activity Date Activity User E-Sign Co-Sign Detail Recorded Client Recorded Date Recorded By Document 08/19/19 10:37 TAYLA [id number] 08/19/19 10:41 TAYLA 08/19/19 10:37 Wound Center Nurse 2 [Procedure/Treatment] #4- R AREOLA -Time 10:41 -Correct Patient Yes -Correct Side, Site, Position Yes -Correct Procedure Yes -Procedure Performed Yes -Type of Procedure Debridement -Clinical Debridement Subcutaneous -Post Debridement Size (cm) - Length 1.9 -Post Debridement Size (cm) - Width 2.8 -Post Debridement Size (cm) - Depth 0.1 -Total Square Cm 5.32 -Wound/Ulcer Outcome Not Healed -Ulcer Cleansing Rinsed/ Irrigated with Saline -Foul Odor after Cleansing No -Bioengineered Tissue No -Bleeding Controlled with Pressure -Offloading No -Treatment Response Procedure Tolerated Well #3 left breast incision -Time 10:39 -Correct Patient Yes -Correct Side, Site, Position Yes -Correct Procedure Yes -Procedure Performed Yes -Type of Procedure Debridement -Clinical Debridement Subcutaneous -Post Debridement Size (cm) - Length 5.0 -Post Debridement Size (cm) - Width 11.0 -Post Debridement Size (cm) - Depth 1.5 -Total Square Cm 55.00 -Wound/Ulcer Outcome Not Healed -Ulcer Cleansing Rinsed/ Irrigated with Saline -Foul Odor after Cleansing No -Bioengineered Tissue No -Bleeding Controlled with Pressure -Offloading No -Treatment Response Procedure Tolerated Well #2 right breast -Time 10:39 -Correct Patient Yes -Correct Side, Site, Position Yes -Correct Procedure Yes -Procedure Performed Yes -Type of Procedure Debridement -Clinical Debridement Subcutaneous -Post Debridement Size (cm) - Length 3.7 -Post Debridement Size (cm) - Width 7.8 -Post Debridement Size (cm) - Depth 0.2 -Total Square Cm 28.86 -Wound/Ulcer Outcome Not Healed -Ulcer Cleansing Rinsed/ Irrigated with Saline -Foul Odor after Cleansing No -Bioengineered Tissue No -Bleeding Controlled with Pressure -Offloading No -Treatment Response Procedure Tolerated Well [See Physician Procedure note for Specifics] Pain Scale: 0-10 Numeric [Pain] -Is Patient Pain Free? Yes Musculoskeletal: No Muscle Wasting Neurological: Neuro grossly intact Psych/Mental Status: Normal Affect, Appropriate Debridement Note Post-Debridement Measurements/Treatment WC - Nurse 2 - General Ulcer CM Notes Start: 08/19/19 09:40 Freq: Status: Active Protocol: Activity Type Activity Date Activity User E-Sign Co-Sign Detail Recorded Client Recorded Date Recorded By Document 08/19/19 10:37 TAYLA [id number] 08/19/19 10:41 TAYLA 08/19/19 10:37 Wound Center Nurse 2 #4- R AREOLA -Time 10:41 -Correct Patient Yes -Correct Side, Site, Position Yes -Correct Procedure Yes -Procedure Performed Yes -Type of Procedure Debridement -Clinical Debridement Subcutaneous -Post Debridement Size (cm) - Length 1.9 -Post Debridement Size (cm) - Width 2.8 -Post Debridement Size (cm) - Depth 0.1 -Total Square Cm 5.32 -Wound/Ulcer Outcome Not Healed -Ulcer Cleansing Rinsed/ Irrigated with Saline -Foul Odor after Cleansing No -Bioengineered Tissue No -Bleeding Controlled with Pressure -Offloading No -Treatment Response Procedure Tolerated Well #3 left breast incision -Time 10:39 -Correct Patient Yes -Correct Side, Site, Position Yes -Correct Procedure Yes -Procedure Performed Yes -Type of Procedure Debridement -Clinical Debridement Subcutaneous -Post Debridement Size (cm) - Length 5.0 -Post Debridement Size (cm) - Width 11.0 -Post Debridement Size (cm) - Depth 1.5 -Total Square Cm 55.00 -Wound/Ulcer Outcome Not Healed -Ulcer Cleansing Rinsed/ Irrigated with Saline -Foul Odor after Cleansing No -Bioengineered Tissue No -Bleeding Controlled with Pressure -Offloading No -Treatment Response Procedure Tolerated Well #2 right breast -Time 10:39 -Correct Patient Yes -Correct Side, Site, Position Yes -Correct Procedure Yes -Procedure Performed Yes -Type of Procedure Debridement -Clinical Debridement Subcutaneous -Post Debridement Size (cm) - Length 3.7 -Post Debridement Size (cm) - Width 7.8 -Post Debridement Size (cm) - Depth 0.2 -Total Square Cm 28.86 -Wound/Ulcer Outcome Not Healed -Ulcer Cleansing Rinsed/ Irrigated with Saline -Foul Odor after Cleansing No -Bioengineered Tissue No -Bleeding Controlled with Pressure -Offloading No -Treatment Response Procedure Tolerated Well Pain Scale: 0-10 Numeric Is Patient Pain Free? Yes Wound debrided: breast at the [facility] Laterality: Right Type of Debridement: Excisional debridement Anesthesia Used: 5% Lidocaine Gel Depth: Down to and including healthy tissue, in the subcutaneous layer Percentage of wound debrided: 100 Instrument Used: 5mm curette Tissue Removed: Subcutaneous tissue and slough Severity: Fat Layer Exposed Amount of bleeding with debridement: Moderate Bleeding Controlled with: Pressure, Compression and gauze Patient tolerated procedure well - Additional Wound Wound debrided: breast breast at the [facility] Laterality: Left Type of Debridement: Excisional debridement Anesthesia Used: 5% Lidocaine Gel Depth: Down to and including healthy tissue, in the subcutaneous layer Percentage of wound debrided: 100 Instrument Used: 5mm curette Tissue Removed: Subcutaneous tissue and slough Severity: Fat Layer Exposed Amount of bleeding with debridement: Mild Bleeding Controlled with: Compression and gauze Patient tolerated procedure: Patient tolerated procedure well Assessment/Plan Assessment: 1. Open surgical wound right breast at [facility]. 2. Open surgical woudn left breast at [facility]. 3. Bilateral macromastia. 4. s/p bilateral breast reduction mammaplasty. 5. Smoker. 6. Diabetesmellitus. Plan: Bilateral breast wound at the [facility] are healing satisfactory. Good granulation tissue seen. Continue VAC. A wound culture from 07/22/19 was sent from the left breast and showed MRSE and Corynebacterium amycolatum. Wound culture from her recent hospitalization on 07/08/19 was positive for Proteus mirabiis, Enterococcus faecalis, and MRSE. She was on Ceftriaxone IV along with Augmentin and Doxycycline PO. Her weekly labs were showing elevated Creatinine of 1.32. Her Ceftriaxone was discontinued but the Augmentin and Doxycycline were continued. Her Creatnine was 0.98 yesterday. She will no longer need weekly lab work. Renewed Percocet (30) and Valium (30). OARRS reviewed. Follow up in one week. Code Visit 12324
[2019-08-26 10:40] VITALS: BP 93/51; PULSE 97; RESP 16; TEMP 37.2; BMI 30.9
--- NOTE | 2019-08-26 14:55 | PN.PCM_ITS ---
(1) Wound of right breast Status: Chronic Code(s): S21.001A - Unspecified open wound of right breast, initial encounter (2) Wound of left breast Status: Chronic Code(s): S21.002A - Unspecified open wound of left breast, initial encounter (3) Type 2 diabetes mellitus Status: Chronic Code(s): E11.9 - Type 2 diabetes mellitus without complications (4) Smoker Status: Chronic Code(s): F17.200 - Nicotine dependence, unspecified, uncomplicated Type of Wound Date of Service: 08/26/19 Chief Complaint: Open surgical wounds to bilateral breast at [facility]. History of Wound: Surgery 06/21/19 - Bilateral breast reduction mammaplasty. She was recently admitted to hospital on 07/05/19 with elevated WBC and comprosed wound healing. One 07/08/19 the right breast eschar was debrided in the hospital to make wound care easier and to drain infection. Wound VAC was started along with PICC line placement and Ceftriaxone IV antibiotics. Wound culture from 07/08/19 was positive for Proteus mirabilis, Enterococcus faecalis and MRSE. Au gmentin and Doxycycline were added. On 07/22/19, there was wound breakdown on the left breast at the [facility]. Debridement was done and a wound culture showed MRSE and Corynebacterium amycolatum. VAC was started on the left breast as well. Today she denies fever. She states her appetite is ok. Her labs are now WNL. Progress of Wound: Bilateral breast wounds at [facility] have improved. - Physical Exam Vital Signs Temp Pulse Resp BP 98.9 F 97 16 93/51 L 08/26/19 10:40 08/26/19 10:40 08/26/19 10:40 08/26/19 10:40 General: Alert, Oriented x3, Cooperative HEENT: Atraumatic Oral: Moist Mucosa Lungs: Normal air movement Cardiovascular: Regular rate Extremities: Capillary Refill Less than 3 Seconds Skin: Ulcer/ Wound - bilateral breast ulcers at [facility] Wound Measurements and Assessment WC - Nurse 1 - General Ulcer Measurement Start: 08/19/19 09:40 Freq: Status: Active Protocol: Activity Type Activity Date Activity User E-Sign Co-Sign Detail Recorded Client Recorded Date Recorded By Document 08/26/19 10:40 [facility] [id number] 08/26/19 10:56 BM[facility] 08/26/19 10:40 Wound Center Nurse 1 [Ulcer Assessment] #4- R AREOLA -Combined with other wound No -Current Size (cm) - Length 1.6 -Current Size (cm) - Width 2.4 -Current Size (cm) - Depth 0.1 -Total Square Cm 3.84 -Photo Taken No -Epithelialization Small 1-33% -Tunneling No -Undermining/Tunneling No -Circular Undermining No -Exudate Amt Small -Exudate Type Serosanguineous -Wound Margin Distinct, Outline Attached -Granulation Amt Medium (34-66%) -Granulation Quality Power -Slough/Fibrin Yes -Necrosis Amt Small (1-33%) -Necrotic Tissue Type Adherent Slough -Texture (Flavia-wound Skin Appearance) Assessed, Scarring -Moisture (Flavia-wound Skin Appearance Assessed ) -Color (Flavia-wound Skin Appearance) Assessed, Erythema -Temperature (Flavia-wound Skin No Abnormality Appearance) (Pt Warm) -Tenderness on Palpation (Flavia-wound No Skin Appearance) -Ulcer Cleansing SOAPY WATER -Foul Odor after Cleansing No -Anesthetic Used 4% Lidocaine Solution #3 left breast incision -Combined with other wound No -Current Size (cm) - Length 3.7 -Current Size (cm) - Width 14.4 -Current Size (cm) - Depth 1 -Total Square Cm 53.28 -Photo Taken No -Epithelialization None Present -Tunneling No -Undermining/Tunneling Yes -Undermining/Tunneling Starts (O' 10 clock) -Undermining/Tunneling Ends (O'clock) 12 -Maximum Distance (cm) 1 -Circular Undermining No -Exudate Amt Small -Exudate Type Serosanguineous -Wound Margin Distinct, Outline Attached -Granulation Amt Large (67-100%) -Granulation Quality Red -Slough/Fibrin Yes -Necrosis Amt Medium (34-66%) -Necrotic Tissue Type Adherent Slough -Texture (Flavia-wound Skin Appearance) Assessed, Scarring -Moisture (Flavia-wound Skin Appearance Assessed ) -Color (Flavia-wound Skin Appearance) Assessed -Temperature (Flavia-wound Skin No Abnormality Appearance) (Pt Warm) -Tenderness on Palpation (Flavia-wound No Skin Appearance) -Ulcer Cleansing SOAPY WATER -Foul Odor after Cleansing No -Anesthetic Used 4% Lidocaine Solution #2 right breast -Combined with other wound No -Current Size (cm) - Length 2.9 -Current Size (cm) - Width 7.6 -Current Size (cm) - Depth 0.1 -Total Square Cm 22.04 -Photo Taken No -Epithelialization Small 1-33% -Tunneling No -Undermining/Tunneling No -Circular Undermining No -Exudate Amt Small -Exudate Type Serosanguineous -Wound Margin Distinct, Outline Attached -Granulation Amt Medium (34-66%) -Granulation Quality Red -Slough/Fibrin Yes -Necrosis Amt Small (1-33%) -Necrotic Tissue Type Adherent Slough -Texture (Flavia-wound Skin Appearance) Assessed, Scarring -Moisture (Flavia-wound Skin Appearance Assessed ) -Color (Flavia-wound Skin Appearance) Assessed -Temperature (Flavia-wound Skin No Abnormality Appearance) (Pt Warm) -Tenderness on Palpation (Flavia-wound No Skin Appearance) -Ulcer Cleansing SOAPY WATER -Foul Odor after Cleansing No -Anesthetic Used 4% Lidocaine Solution WC - Nurse 2 - General Ulcer CM Notes Start: 08/19/19 09:40 Freq: Status: Active Protocol: Activity Type Activity Date Activity User E-Sign Co-Sign Detail Recorded Client Recorded Date Recorded By Document 08/26/19 11:04 [id number] 08/26/19 11:10 TAYLA 08/26/19 11:04 Wound Center Nurse 2 [Procedure/Treatment] #4- R AREOLA -Time 11:06 -Correct Patient Yes -Correct Side, Site, Position Yes -Correct Procedure Yes -Procedure Performed Yes -Type of Procedure Debridement -Clinical Debridement Subcutaneous -Post Debridement Size (cm) - Length 1.5 -Post Debridement Size (cm) - Width 2.5 -Post Debridement Size (cm) - Depth 0.1 -Total Square Cm 3.75 -Wound/Ulcer Outcome Not Healed -Ulcer Cleansing Rinsed/ Irrigated with Saline -Foul Odor after Cleansing No -Bioengineered Tissue No -Bleeding Controlled with Pressure -Offloading No -Treatment Response Procedure Tolerated Well #3 left breast incision -Time 11:06 -Correct Patient Yes -Correct Side, Site, Position Yes -Correct Procedure Yes -Procedure Performed Yes -Type of Procedure Debridement -Clinical Debridement Subcutaneous -Post Debridement Size (cm) - Length 4.3 -Post Debridement Size (cm) - Width 10.2 -Post Debridement Size (cm) - Depth 1.8 -Total Square Cm 43.86 -Wound/Ulcer Outcome Not Healed -Ulcer Cleansing Rinsed/ Irrigated with Saline -Foul Odor after Cleansing No -Bioengineered Tissue No -Bleeding Controlled with Pressure -Offloading No -Treatment Response Procedure Tolerated Well #2 right breast -Time 11:06 -Correct Patient Yes -Correct Side, Site, Position Yes -Correct Procedure Yes -Procedure Performed Yes -Type of Procedure Debridement -Clinical Debridement Subcutaneous -Post Debridement Size (cm) - Length 3.6 -Post Debridement Size (cm) - Width 7.5 -Post Debridement Size (cm) - Depth 0.1 -Total Square Cm 27.00 -Wound/Ulcer Outcome Not Healed -Ulcer Cleansing Rinsed/ Irrigated with Saline -Foul Odor after Cleansing No -Bioengineered Tissue No -Bleeding Controlled with Pressure -Offloading No -Treatment Response Procedure Tolerated Well [See Physician Procedure note for Specifics] Pain Scale: 0-10 Numeric [Pain] -Is Patient Pain Free? Yes Musculoskeletal: No Muscle Wasting Neurological: Neuro grossly intact Psych/Mental Status: Normal Affect, Appropriate Debridement Note Post-Debridement Measurements/Treatment WC - Nurse 2 - General Ulcer CM Notes Start: 08/19/19 09:40 Freq: Status: Active Protocol: Activity Type Activity Date Activity User E-Sign Co-Sign Detail Recorded Client Recorded Date Recorded By Document 08/19/19 10:37 [id number] 08/19/19 10:41 Document 08/26/19 11:04 [id number] 08/26/19 11:10 08/19/19 08/26/19 10:37 11:04 Wound Center Nurse 2 #4- R AREOLA -Time 10:41 11:06 -Correct Patient Yes Yes -Correct Side, Site, Position Yes Yes -Correct Procedure Yes Yes -Procedure Performed Yes Yes -Type of Procedure Debridement Debridement -Clinical Debridement Subcutaneous Subcutaneous -Post Debridement Size (cm) - Length 1.9 1.5 -Post Debridement Size (cm) - Width 2.8 2.5 -Post Debridement Size (cm) - Depth 0.1 0.1 -Total Square Cm 5.32 3.75 -Wound/Ulcer Outcome Not Healed Not Healed -Ulcer Cleansing Rinsed/ Rinsed/ Irrigated with Irrigated with Saline Saline -Foul Odor after Cleansing No No -Bioengineered Tissue No No -Bleeding Controlled with Pressure Pressure -Offloading No No -Treatment Response Procedure Procedure Tolerated Well Tolerated Well #3 left breast incision -Time 10:39 11:06 -Correct Patient Yes Yes -Correct Side, Site, Position Yes Yes -Correct Procedure Yes Yes -Procedure Performed Yes Yes -Type of Procedure Debridement Debridement -Clinical Debridement Subcutaneous Subcutaneous -Post Debridement Size (cm) - Length 5.0 4.3 -Post Debridement Size (cm) - Width 11.0 10.2 -Post Debridement Size (cm) - Depth 1.5 1.8 -Total Square Cm 55.00 43.86 -Wound/Ulcer Outcome Not Healed Not Healed -Ulcer Cleansing Rinsed/ Rinsed/ Irrigated with Irrigated with Saline Saline -Foul Odor after Cleansing No No -Bioengineered Tissue No No -Bleeding Controlled with Pressure Pressure -Offloading No No -Treatment Response Procedure Procedure Tolerated Well Tolerated Well #2 right breast -Time 10:39 11:06 -Correct Patient Yes Yes -Correct Side, Site, Position Yes Yes -Correct Procedure Yes Yes -Procedure Performed Yes Yes -Type of Procedure Debridement Debridement -Clinical Debridement Subcutaneous Subcutaneous -Post Debridement Size (cm) - Length 3.7 3.6 -Post Debridement Size (cm) - Width 7.8 7.5 -Post Debridement Size (cm) - Depth 0.2 0.1 -Total Square Cm 28.86 27.00 -Wound/Ulcer Outcome Not Healed Not Healed -Ulcer Cleansing Rinsed/ Rinsed/ Irrigated with Irrigated with Saline Saline -Foul Odor after Cleansing No No -Bioengineered Tissue No No -Bleeding Controlled with Pressure Pressure -Offloading No No -Treatment Response Procedure Procedure Tolerated Well Tolerated Well Pain Scale: 0-10 Numeric Is Patient Pain Free? Yes Yes Wound debrided: breast tzone/nipple Laterality: Right Type of Debridement: Excisional debridement Anesthesia Used: 5% Lidocaine Gel Depth: Down to and including healthy tissue, in the subcutaneous layer Percentage of wound debrided: 100 Instrument Used: 5mm curette Tissue Removed: subcutaneous tissue and slough Severity: Fat Layer Exposed Amount of bleeding with debridement: Mild Bleeding Controlled with: Pressure, Compression and gauze Patient tolerated procedure well - Additional Wound Wound debrided: breast tzone Laterality: Left Type of Debridement: Excisional debridement Anesthesia Used: 5% Lidocaine Gel Depth: Down to and including healthy tissue, in the subcutaneous layer Percentage of wound debrided: 100 Instrument Used: 7mm curette Tissue Removed: Subcutaneous tissue and slough Severity: Fat Layer Exposed Amount of bleeding with debridement: Mild Bleeding Controlled with: Pressure, Compression and gauze Patient tolerated procedure: Patient tolerated procedure well Assessment/Plan Assessment: 1. Open surgical wound right breast at [facility]. 2. Open surgical woudn left breast at [facility]. 3. Bilateral macromastia. 4. s/p bilateral breast reduction mammaplasty. 5. Smoker. 6. Diabetesmellitus. Plan: Bilateral breast wound at the [facility] are healing satisfactory. Good granulation tissue seen. Continue VAC. The right nipple will stop wound VAC and do daily Patricia dressing changes. A wound culture from 07/22/19 was sent from the left breast and showed MRSE and Corynebacterium amycolatum. Wound culture from her recent hospitalization on 07/08/19 was positive for Proteus mirabiis, Enterococcus faecalis, and MRSE. She was on Ceftriaxone IV along with Augmentin and Doxycycline PO. Her weekly labs were showing elevated Creatinine of 1.32. Her Ceftriaxone was discontinued but the Augmentin and Doxycycline were continued. Her Creatnine was 0.98 yesterday. She will no longer need weekly lab work. Renewed Augmentin. Renewed Percocet (21) and Valium (20). OARRS reviewed. Follow up in one week. Code Visit [id number]
[2019-09-02 10:16] VITALS: BP 119/101; PULSE 105; RESP 16; TEMP 37.3; BMI 30.9
--- NOTE | 2019-09-02 23:13 | PCM.WC.PN ---
Type of Wound Date of Service: 09/02/19 Chief Complaint: Nonhealing ulcers bilateral breasts at Tzone and right areola. History of Wound: Surgery 06/21/19 - Bilateral breast reduction mammaplasty. She was admitted to hospital on 07/05/19 with elevated WBC and compromised wound healing. On 07/08/19 the right breast eschar was debrided in the hospital to make wound care easier and to drain infection. Wound VAC was started along with PICC line placement and Ceftriaxone IV antibiotics. Wound culture from 07/08/19 was postive for Proteus mirabilis, Enterococcus faecalis and MRSE. Augmentin and Doxycycline were added. On 07/22/19, there was wound breakdown on the left breast at the Tzone. Debridement was done and a wound culture showed MRSE and Corynebacterium amycolatum. VAC was started on the left breast as well. Today she denies fever. States appetite is ok. During her IV antibiotics, the Creatinine increased to 1.32 on 08/12/19. The Ceftriaxone was stopped. The following week on 08/18/19 the Creatinine improved to normal at 0.98. Progress of Wound: Improved. - Physical Exam Vital Signs Temp Pulse Resp BP 99.1 F 105 H 16 119/101 H 09/02/19 10:16 09/02/19 10:16 09/02/19 10:16 09/02/19 10:16 Wound Measurements and Assessment WC - Nurse 1 - General Ulcer Measurement Start: 08/19/19 09:40 Freq: Status: Active Protocol: Activity Type Activity Date Activity User E-Sign Co-Sign Detail Recorded Client Recorded Date Recorded By Document 09/02/19 10:16 [facility] [id number] 09/02/19 10:34 [facility] 09/02/19 10:16 Wound Center Nurse 1 [Ulcer Assessment] #4- R AREOLA -Combined with other wound No -Current Size (cm) - Length 1.4 -Current Size (cm) - Width 2 -Current Size (cm) - Depth 0.2 -Total Square Cm 2.8 -Photo Taken No -Epithelialization Small 1-33% -Tunneling No -Undermining/Tunneling No -Circular Undermining No -Exudate Amt Small -Exudate Type Serosanguineous -Wound Margin Distinct, Outline Attached -Granulation Amt Large (67-100%) -Granulation Quality Melvin -Slough/Fibrin Yes -Necrosis Amt Small (1-33%) -Necrotic Tissue Type Adherent Slough -Texture (Flavia-wound Skin Appearance) Assessed, Scarring -Moisture (Flavia-wound Skin Appearance Assessed ) -Color (Flavia-wound Skin Appearance) Assessed -Temperature (Flavia-wound Skin No Abnormality Appearance) (Pt Warm) -Tenderness on Palpation (Flavia-wound No Skin Appearance) -Ulcer Cleansing soapy water -Foul Odor after Cleansing No -Anesthetic Used 4% Lidocaine Solution #3 left breast incision -Combined with other wound No -Current Size (cm) - Length 3.5 -Current Size (cm) - Width 7.5 -Current Size (cm) - Depth 1.9 -Total Square Cm 26.25 -Photo Taken No -Epithelialization Small 1-33% -Tunneling No -Undermining/Tunneling Yes -Undermining/Tunneling Starts (O' 9 clock) -Undermining/Tunneling Ends (O'clock) 11 -Maximum Distance (cm) 1.6 -Circular Undermining No -Exudate Amt Medium -Exudate Type Serosanguineous -Wound Margin Distinct, Outline Attached -Granulation Amt Medium (34-66%) -Granulation Quality Red -Slough/Fibrin Yes -Necrosis Amt Small (1-33%) -Necrotic Tissue Type Adherent Slough -Texture (Flavia-wound Skin Appearance) Assessed, Scarring -Moisture (Flavia-wound Skin Appearance Assessed ) -Color (Flavia-wound Skin Appearance) Assessed -Temperature (Flavia-wound Skin No Abnormality Appearance) (Pt Warm) -Tenderness on Palpation (Flavia-wound No Skin Appearance) -Ulcer Cleansing soapy water -Foul Odor after Cleansing No -Anesthetic Used 5% Lidocaine Gel #2 right breast -Combined with other wound No -Current Size (cm) - Length 4 -Current Size (cm) - Width 7.9 -Current Size (cm) - Depth 0.1 -Total Square Cm 31.6 -Photo Taken No -Epithelialization Small 1-33% -Tunneling No -Undermining/Tunneling No -Circular Undermining No -Exudate Amt Small -Exudate Type Serosanguineous -Wound Margin Distinct, Outline Attached -Granulation Amt Large (67-100%) -Granulation Quality Red -Slough/Fibrin Yes -Necrosis Amt Small (1-33%) -Necrotic Tissue Type Adherent Slough -Texture (Flavia-wound Skin Appearance) Assessed, Scarring -Moisture (Flavia-wound Skin Appearance Assessed ) -Color (Flavia-wound Skin Appearance) Assessed -Temperature (Flavia-wound Skin No Abnormality Appearance) (Pt Warm) -Tenderness on Palpation (Flavia-wound No Skin Appearance) -Ulcer Cleansing soapy water -Foul Odor after Cleansing No -Anesthetic Used 4% Lidocaine Solution WC - Nurse 2 - General Ulcer CM Notes Start: 08/19/19 09:40 Freq: Status: Active Protocol: Activity Type Activity Date Activity User E-Sign Co-Sign Detail Recorded Client Recorded Date Recorded By Document 09/02/19 11:01 TAYLA [id number] 09/02/19 11:04 [email or web address] 09/02/19 11:01 Wound Center Nurse 2 [Procedure/Treatment] #4- R AREOLA -Time 11:03 -Correct Patient Yes -Correct Side, Site, Position Yes -Correct Procedure Yes -Procedure Performed Yes -Type of Procedure Debridement -Clinical Debridement Subcutaneous -Post Debridement Size (cm) - Length 1.3 -Post Debridement Size (cm) - Width 1.8 -Post Debridement Size (cm) - Depth 0.1 -Total Square Cm 2.34 -Ulcer Cleansing Rinsed/ Irrigated with Saline -Foul Odor after Cleansing No -Bioengineered Tissue No -Bleeding Controlled with Pressure -Offloading No -Treatment Response Procedure Tolerated Well #3 left breast incision -Time 11:01 -Correct Patient Yes -Correct Side, Site, Position Yes -Correct Procedure Yes -Procedure Performed Yes -Type of Procedure Debridement -Clinical Debridement Subcutaneous -Post Debridement Size (cm) - Length 3.0 -Post Debridement Size (cm) - Width 7.9 -Post Debridement Size (cm) - Depth 2.0 -Total Square Cm 23.70 -Wound/Ulcer Outcome Not Healed -Ulcer Cleansing Rinsed/ Irrigated with Saline -Foul Odor after Cleansing No -Bioengineered Tissue No -Bleeding Controlled with Pressure -Offloading No -Treatment Response Procedure Tolerated Well #2 right breast -Time 11:02 -Correct Patient Yes -Correct Side, Site, Position Yes -Correct Procedure Yes -Procedure Performed Yes -Type of Procedure Debridement -Clinical Debridement Subcutaneous -Post Debridement Size (cm) - Length 3.5 -Post Debridement Size (cm) - Width 8.2 -Post Debridement Size (cm) - Depth 0.1 -Total Square Cm 28.70 -Wound/Ulcer Outcome Not Healed -Ulcer Cleansing Rinsed/ Irrigated with Saline -Foul Odor after Cleansing No -Bioengineered Tissue No -Bleeding Controlled with Pressure -Offloading No -Treatment Response Procedure Tolerated Well [See Physician Procedure note for Specifics] Pain Scale: 0-10 Numeric [Pain] -Is Patient Pain Free? Yes Debridement Note Post-Debridement Measurements/Treatment WC - Nurse 2 - General Ulcer CM Notes Start: 08/19/19 09:40 Freq: Status: Active Protocol: Activity Type Activity Date Activity User E-Sign Co-Sign Detail Recorded Client Recorded Date Recorded By Document 08/19/19 10:37 [id number] 08/19/19 10:41 Document 08/26/19 11:04 [id number] 08/26/19 11:10 JF Document 09/02/19 11:01 [id number] 09/02/19 11:04 08/19/19 08/26/19 09/02/19 10:37 11:04 11:01 Wound Center Nurse 2 #4- R AREOLA -Time 10:41 11:06 11:03 -Correct Patient Yes Yes Yes -Correct Side, Site, Position Yes Yes Yes -Correct Procedure Yes Yes Yes -Procedure Performed Yes Yes Yes -Type of Procedure Debridement Debridement Debridement -Clinical Debridement Subcutaneous Subcutaneous Subcutaneous -Post Debridement Size (cm) - Length 1.9 1.5 1.3 -Post Debridement Size (cm) - Width 2.8 2.5 1.8 -Post Debridement Size (cm) - Depth 0.1 0.1 0.1 -Total Square Cm 5.32 3.75 2.34 -Wound/Ulcer Outcome Not Healed Not Healed -Ulcer Cleansing Rinsed/ Rinsed/ Rinsed/ Irrigated with Irrigated with Irrigated with Saline Saline Saline -Foul Odor after Cleansing No No No -Bioengineered Tissue No No No -Bleeding Controlled with Pressure Pressure Pressure -Offloading No No No -Treatment Response Procedure Procedure Procedure Tolerated Well Tolerated Well Tolerated Well #3 left breast incision -Time 10:39 11:06 11:01 -Correct Patient Yes Yes Yes -Correct Side, Site, Position Yes Yes Yes -Correct Procedure Yes Yes Yes -Procedure Performed Yes Yes Yes -Type of Procedure Debridement Debridement Debridement -Clinical Debridement Subcutaneous Subcutaneous Subcutaneous -Post Debridement Size (cm) - Length 5.0 4.3 3.0 -Post Debridement Size (cm) - Width 11.0 10.2 7.9 -Post Debridement Size (cm) - Depth 1.5 1.8 2.0 -Total Square Cm 55.00 43.86 23.70 -Wound/Ulcer Outcome Not Healed Not Healed Not Healed -Ulcer Cleansing Rinsed/ Rinsed/ Rinsed/ Irrigated with Irrigated with Irrigated with Saline Saline Saline -Foul Odor after Cleansing No No No -Bioengineered Tissue No No No -Bleeding Controlled with Pressure Pressure Pressure -Offloading No No No -Treatment Response Procedure Procedure Procedure Tolerated Well Tolerated Well Tolerated Well #2 right breast -Time 10:39 11:06 11:02 -Correct Patient Yes Yes Yes -Correct Side, Site, Position Yes Yes Yes -Correct Procedure Yes Yes Yes -Procedure Performed Yes Yes Yes -Type of Procedure Debridement Debridement Debridement -Clinical Debridement Subcutaneous Subcutaneous Subcutaneous -Post Debridement Size (cm) - Length 3.7 3.6 3.5 -Post Debridement Size (cm) - Width 7.8 7.5 8.2 -Post Debridement Size (cm) - Depth 0.2 0.1 0.1 -Total Square Cm 28.86 27.00 28.70 -Wound/Ulcer Outcome Not Healed Not Healed Not Healed -Ulcer Cleansing Rinsed/ Rinsed/ Rinsed/ Irrigated with Irrigated with Irrigated with Saline Saline Saline -Foul Odor after Cleansing No No No -Bioengineered Tissue No No No -Bleeding Controlled with Pressure Pressure Pressure -Offloading No No No -Treatment Response Procedure Procedure Procedure Tolerated Well Tolerated Well Tolerated Well Pain Scale: 0-10 Numeric Is Patient Pain Free? Yes Yes Yes Wound debrided: #2 Right breast. Laterality: Right Wound Grade/Stage: 2. Type of Debridement: Excisional debridement Anesthesia Used: 4% Lidocaine Solution Depth: Down to and including healthy tissue, in the subcutaneous layer Percentage of wound debrided: 100 Instrument Used: 5mm curette Tissue Removed: subcutaneous tissue. Severity: Fat Layer Exposed Amount of bleeding with debridement: Mild Bleeding Controlled with: Pressure Patient tolerated procedure well - Additional Wound Wound debrided: #3 Left breast. Laterality: Left Wound Grade/Stage: 2. Type of Debridement: Excisional debridement Anesthesia Used: 4% Lidocaine Solution Depth: Down to and including healthy tissue, in the subcutaneous layer Percentage of wound debrided: 100 Instrument Used: 5mm curette Tissue Removed: subcutaneous tissue. Severity: Fat Layer Exposed Amount of bleeding with debridement: Mild Bleeding Controlled with: Pressure Patient tolerated procedure: Patient tolerated procedure well - Additional Wound Wound debrided: #4 Right areola. Laterality: Right Wound Grade/Stage: 2. Type of Debridement: Excisional debridement Anesthesia Used: 4% Lidocaine Solution Depth: Down to and including healthy tissue, in the subcutaneous layer Percentage of wound debrided: 100 Instrument Used: 3mm curette Tissue Removed: subcutaneous tissue. Severity: Fat Layer Exposed Amount of bleeding with debridement: Mild Bleeding Controlled with: Pressure Patient tolerated procedure: Patient tolerated procedure well Assessment/Plan Assessment: 1. Nonhealing ulcers bilateral breasts at Tzone and right areola. 2. Bilateral macromastia. 3. s/p bilateral breast reduction mammaplasty. 4. Smoker. 5. Diabetes mellitus. 6. Increased Creatinine, probably medication related from antibiotics, resolved after stopping the Ceftriaxone. Plan: Continue the VAC to both breast ulcers at Tzone and right areola. A wound culture from 07/22/19 was sent from the left breast and showed MRSE and Corynebacterium amycolatum. Wound culture from her recent hospitalization on 07/08/19 was postive for Proteus mirabilis, Enterococcus faecalis and MRSE. She was on Ceftriaxone IV along with Augmentin and Doxycycline PO. She stopped the Ceftriaxone because of increased Creatinine at 1.32 which improved to normal at 0.98 after stopping the antibiotic. She has finished the Augmentin and is finishing the Doxycycline. Prealbumin from 06/22/19 was 17.8. Encouraged nutritional supplementation with protein to help the healing process. Renewed her Percocet for pain (30 tabs). Renewed her Valium for spasm (20 tabs). Follow up one week. Encouraged patient to stop smoking as it may have deleterious effects on wound healing. With the improvement in the healing of the ulcers, may consider a skin substitute. Code Visit Wound Center Charges CPT - 55879 ICD-10 - V58.49, L98.492, T14.8xxA, N62, E11.9, F17.200
[2019-09-09 13:15] VITALS: BP 111/78; PULSE 98; RESP 18; TEMP 37.4; BMI 30.9
--- NOTE | 2019-09-09 14:14 | PCM.WC.PN ---
(1) Wound of right breast Status: Chronic Code(s): S21.001A - Unspecified open wound of right breast, initial encounter (2) Wound of left breast Status: Chronic Code(s): S21.002A - Unspecified open wound of left breast, initial encounter (3) Type 2 diabetes mellitus Status: Chronic Code(s): E11.9 - Type 2 diabetes mellitus without complications (4) Smoker Status: Chronic Code(s): F17.200 - Nicotine dependence, unspecified, uncomplicated Type of Wound Date of Service: 09/09/19 Chief Complaint: Open surgical wounds to bilateral breast at [facility]. History of Wound: Surgery 06/21/19 - Bilateral breast reduction mammaplasty. She was recently admitted to hospital on 07/05/19 with elevated WBC and comprosed wound healing. One 07/08/19 the right breast eschar was debrided in the hospital to make wound care easier and to drain infection. Wound VAC was started along with PICC line placement and Ceftriaxone IV antibiotics. Wound culture from 07/08/19 was positive for Proteus mirabilis, Enterococcus faecalis and MRSE. Augmentin and Doxycycline were added. On 07/22/19, there was wound breakdown on the left breast at the [facility]. Debridement was done and a wound culture showed MRSE and Corynebacterium amycolatum. Wound VAC the the left breast. Theraskin #1 applied to right breast and right nipple area. 100% of the product was used and covered with wound veil. Today she denies fever. She states her appetite is ok. Her labs are now WNL. Progress of Wound: Bilateral breast wounds at [facility] have improved. - Physical Exam Vital Signs Temp Pulse Resp BP 99.3 F H 98 18 111/78 09/09/19 13:15 09/09/19 13:15 09/09/19 13:15 09/09/19 13:15 General: Alert, Oriented x3, Cooperative HEENT: Atraumatic Oral: Moist Mucosa Lungs: Normal air movement Cardiovascular: Regular rate Abdomen: Soft Extremities: Capillary Refill Less than 3 Seconds Skin: Ulcer/ Wound - right breast, right medial nipple, and left breast Wound Measurements and Assessment WC - Nurse 1 - General Ulcer Measurement Start: 08/19/19 09:40 Freq: Status: Active Protocol: Activity Type Activity Date Activity User E-Sign Co-Sign Detail Recorded Client Recorded Date Recorded By Document 09/09/19 13:15 DL [id number] 09/09/19 13:27 DL 09/09/19 13:15 Wound Center Nurse 1 [Ulcer Assessment] #4- R AREOLA -Current Size (cm) - Length 0 -Current Size (cm) - Width 0 -Current Size (cm) - Depth 0 -Total Square Cm 0 -Photo Taken Yes -Exudate Amt None Present -Wound Margin Flat & Intact -Granulation Amt Large (67-100%) -Granulation Quality Mayflower -Necrosis Amt None Present (0 %) -Structure Exposed N/A -Texture (Flavia-wound Skin Appearance) Scarring -Moisture (Flavia-wound Skin Appearance No Abnormality ) -Color (Flavia-wound Skin Appearance) No Abnormality -Temperature (Flavia-wound Skin No Abnormality Appearance) (Pt Warm) -Tenderness on Palpation (Flavia-wound No Skin Appearance) -Ulcer Cleansing Wound Cleanser -Foul Odor after Cleansing No #3 left breast incision -Current Size (cm) - Length 2.8 -Current Size (cm) - Width 6 -Current Size (cm) - Depth 2 -Total Square Cm 16.8 -Photo Taken No -Tunneling Position (O'clock) 11 -Tunneling Distance (cm) 2 -Exudate Amt Small -Exudate Type Serosanguineous -Wound Margin Distinct, Outline Attached -Granulation Amt Large (67-100%) -Granulation Quality Red -Necrosis Amt Small (1-33%) -Necrotic Tissue Type Adherent Slough -Structure Exposed N/A -Texture (Flavia-wound Skin Appearance) Scarring -Moisture (Flavia-wound Skin Appearance No Abnormality ) -Color (Flavia-wound Skin Appearance) No Abnormality -Temperature (Flavia-wound Skin No Abnormality Appearance) (Pt Warm) -Tenderness on Palpation (Flavia-wound No Skin Appearance) -Ulcer Cleansing Wound Cleanser -Foul Odor after Cleansing No -Anesthetic Used 4% Lidocaine Solution #2 right breast -Current Size (cm) - Length 2.8 -Current Size (cm) - Width 5.8 -Current Size (cm) - Depth 0.1 -Total Square Cm 16.24 -Photo Taken No -Exudate Amt Small -Exudate Type Serosanguineous -Wound Margin Distinct, Outline Attached -Granulation Amt Large (67-100%) -Granulation Quality Red -Necrosis Amt Small (1-33%) -Necrotic Tissue Type Adherent Slough -Texture (Flavia-wound Skin Appearance) Scarring -Moisture (Flavia-wound Skin Appearance No Abnormality ) -Color (Flavia-wound Skin Appearance) No Abnormality -Temperature (Flavia-wound Skin No Abnormality Appearance) (Pt Warm) -Tenderness on Palpation (Flavia-wound No Skin Appearance) -Ulcer Cleansing Wound Cleanser -Foul Odor after Cleansing No -Anesthetic Used 4% Lidocaine Solution WC - Nurse 2 - General Ulcer CM Notes Start: 08/19/19 09:40 Freq: Status: Active Protocol: Activity Type Activity Date Activity User E-Sign Co-Sign Detail Recorded Client Recorded Date Recorded By Document 09/09/19 13:43 [email or web address] [id number] 09/09/19 13:47 TAYLA 09/09/19 13:43 Wound Center Nurse 2 [Procedure/Treatment] #4- R AREOLA -Time 13:43 -Correct Patient Yes -Correct Side, Site, Position Yes -Correct Procedure Yes -Procedure Performed Yes -Type of Procedure Debridement -Clinical Debridement Subcutaneous -Post Debridement Size (cm) - Length 0.5 -Post Debridement Size (cm) - Width 0.3 -Post Debridement Size (cm) - Depth 0.1 -Total Square Cm 0.15 -Wound/Ulcer Outcome Not Healed -Ulcer Cleansing Rinsed/ Irrigated with Saline -Foul Odor after Cleansing No -Bioengineered Tissue Yes -Type of bioengineered Tissue THERASKIN -Expiration Date 04/11/22 -Product Lot Number [id number] -Percent Used 100 -Saline Lot Number [id number] -Bleeding Controlled with Pressure -Offloading No -Treatment Response Procedure Tolerated Well #3 left breast incision -Time 13:44 -Correct Patient Yes -Correct Side, Site, Position Yes -Correct Procedure Yes -Procedure Performed Yes -Type of Procedure Debridement -Clinical Debridement Subcutaneous -Post Debridement Size (cm) - Length 3.0 -Post Debridement Size (cm) - Width 6.0 -Post Debridement Size (cm) - Depth 2.0 -Total Square Cm 18.00 -Wound/Ulcer Outcome Not Healed -Ulcer Cleansing Rinsed/ Irrigated with Saline -Foul Odor after Cleansing No -Bioengineered Tissue No -Bleeding Controlled with Pressure -Offloading No -Treatment Response Procedure Tolerated Well #2 right breast -Time 13:44 -Correct Patient Yes -Correct Side, Site, Position Yes -Correct Procedure Yes -Procedure Performed Yes -Type of Procedure Debridement -Clinical Debridement Subcutaneous -Post Debridement Size (cm) - Length 3.0 -Post Debridement Size (cm) - Width 6.7 -Post Debridement Size (cm) - Depth 0.1 -Total Square Cm 20.10 -Wound/Ulcer Outcome Not Healed -Ulcer Cleansing Rinsed/ Irrigated with Saline -Foul Odor after Cleansing No -Bioengineered Tissue Yes -Type of bioengineered Tissue THERASKIN -Expiration Date 04/11/22 -Product Lot Number [id number] -Percent Used 100 -Saline Lot Number [id number] -Bleeding Controlled with Pressure -Offloading No -Treatment Response Procedure Tolerated Well [See Physician Procedure note for Specifics] Pain Scale: 0-10 Numeric [Pain] -Is Patient Pain Free? Yes Musculoskeletal: No Muscle Wasting Neurological: Neuro grossly intact Psych/Mental Status: Normal Affect, Appropriate Debridement Note Post-Debridement Measurements/Treatment WC - Nurse 2 - General Ulcer CM Notes Start: 08/19/19 09:40 Freq: Status: Active Protocol: Activity Type Activity Date Activity User E-Sign Co-Sign Detail Recorded Client Recorded Date Recorded By Document 08/19/19 10:37 [id number] 08/19/19 10:41 Document 08/26/19 11:04 [id number] 08/26/19 11:10 Document 09/02/19 11:01 [id number] 09/02/19 11:04 Document 09/09/19 13:43 [id number] 09/09/19 13:47 08/19/19 08/26/19 09/02/19 10:37 11:04 11:01 Wound Center Nurse 2 #4- R AREOLA -Time 10:41 11:06 11:03 -Correct Patient Yes Yes Yes -Correct Side, Site, Position Yes Yes Yes -Correct Procedure Yes Yes Yes -Procedure Performed Yes Yes Yes -Type of Procedure Debridement Debridement Debridement -Clinical Debridement Subcutaneous Subcutaneous Subcutaneous -Post Debridement Size (cm) - Length 1.9 1.5 1.3 -Post Debridement Size (cm) - Width 2.8 2.5 1.8 -Post Debridement Size (cm) - Depth 0.1 0.1 0.1 -Total Square Cm 5.32 3.75 2.34 -Wound/Ulcer Outcome Not Healed Not Healed -Ulcer Cleansing Rinsed/ Rinsed/ Rinsed/ Irrigated with Irrigated with Irrigated with Saline Saline Saline -Foul Odor after Cleansing No No No -Bioengineered Tissue No No No -Type of bioengineered Tissue -Expiration Date -Product Lot Number -Percent Used -Saline Lot Number -Bleeding Controlled with Pressure Pressure Pressure -Offloading No No No -Treatment Response Procedure Procedure Procedure Tolerated Well Tolerated Well Tolerated Well #3 left breast incision -Time 10:39 11:06 11:01 -Correct Patient Yes Yes Yes -Correct Side, Site, Position Yes Yes Yes -Correct Procedure Yes Yes Yes -Procedure Performed Yes Yes Yes -Type of Procedure Debridement Debridement Debridement -Clinical Debridement Subcutaneous Subcutaneous Subcutaneous -Post Debridement Size (cm) - Length 5.0 4.3 3.0 -Post Debridement Size (cm) - Width 11.0 10.2 7.9 -Post Debridement Size (cm) - Depth 1.5 1.8 2.0 -Total Square Cm 55.00 43.86 23.70 -Wound/Ulcer Outcome Not Healed Not Healed Not Healed -Ulcer Cleansing Rinsed/ Rinsed/ Rinsed/ Irrigated with Irrigated with Irrigated with Saline Saline Saline -Foul Odor after Cleansing No No No -Bioengineered Tissue No No No -Bleeding Controlled with Pressure Pressure Pressure -Offloading No No No -Treatment Response Procedure Procedure Procedure Tolerated Well Tolerated Well Tolerated Well #2 right breast -Time 10:39 11:06 11:02 -Correct Patient Yes Yes Yes -Correct Side, Site, Position Yes Yes Yes -Correct Procedure Yes Yes Yes -Procedure Performed Yes Yes Yes -Type of Procedure Debridement Debridement Debridement -Clinical Debridement Subcutaneous Subcutaneous Subcutaneous -Post Debridement Size (cm) - Length 3.7 3.6 3.5 -Post Debridement Size (cm) - Width 7.8 7.5 8.2 -Post Debridement Size (cm) - Depth 0.2 0.1 0.1 -Total Square Cm 28.86 27.00 28.70 -Wound/Ulcer Outcome Not Healed Not Healed Not Healed -Ulcer Cleansing Rinsed/ Rinsed/ Rinsed/ Irrigated with Irrigated with Irrigated with Saline Saline Saline -Foul Odor after Cleansing No No No -Bioengineered Tissue No No No -Type of bioengineered Tissue -Expiration Date -Product Lot Number -Percent Used -Saline Lot Number -Bleeding Controlled with Pressure Pressure Pressure -Offloading No No No -Treatment Response Procedure Procedure Procedure Tolerated Well Tolerated Well Tolerated Well Pain Scale: 0-10 Numeric Is Patient Pain Free? Yes Yes Yes 09/09/19 13:43 Wound Center Nurse 2 #4- R AREOLA -Time 13:43 -Correct Patient Yes -Correct Side, Site, Position Yes -Correct Procedure Yes -Procedure Performed Yes -Type of Procedure Debridement -Clinical Debridement Subcutaneous -Post Debridement Size (cm) - Length 0.5 -Post Debridement Size (cm) - Width 0.3 -Post Debridement Size (cm) - Depth 0.1 -Total Square Cm 0.15 -Wound/Ulcer Outcome Not Healed -Ulcer Cleansing Rinsed/ Irrigated with Saline -Foul Odor after Cleansing No -Bioengineered Tissue Yes -Type of bioengineered Tissue THERASKIN -Expiration Date 04/11/22 -Product Lot Number [id number] -Percent Used 100 -Saline Lot Number [id number] -Bleeding Controlled with Pressure -Offloading No -Treatment Response Procedure Tolerated Well #3 left breast incision -Time 13:44 -Correct Patient Yes -Correct Side, Site, Position Yes -Correct Procedure Yes -Procedure Performed Yes -Type of Procedure Debridement -Clinical Debridement Subcutaneous -Post Debridement Size (cm) - Length 3.0 -Post Debridement Size (cm) - Width 6.0 -Post Debridement Size (cm) - Depth 2.0 -Total Square Cm 18.00 -Wound/Ulcer Outcome Not Healed -Ulcer Cleansing Rinsed/ Irrigated with Saline -Foul Odor after Cleansing No -Bioengineered Tissue No -Bleeding Controlled with Pressure -Offloading No -Treatment Response Procedure Tolerated Well #2 right breast -Time 13:44 -Correct Patient Yes -Correct Side, Site, Position Yes -Correct Procedure Yes -Procedure Performed Yes -Type of Procedure Debridement -Clinical Debridement Subcutaneous -Post Debridement Size (cm) - Length 3.0 -Post Debridement Size (cm) - Width 6.7 -Post Debridement Size (cm) - Depth 0.1 -Total Square Cm 20.10 -Wound/Ulcer Outcome Not Healed -Ulcer Cleansing Rinsed/ Irrigated with Saline -Foul Odor after Cleansing No -Bioengineered Tissue Yes -Type of bioengineered Tissue THERASKIN -Expiration Date 04/11/22 -Product Lot Number [id number] -Percent Used 100 -Saline Lot Number [id number] -Bleeding Controlled with Pressure -Offloading No -Treatment Response Procedure Tolerated Well Pain Scale: 0-10 Numeric Is Patient Pain Free? Yes Wound debrided: breast and medial nipple Laterality: Right Type of Debridement: Excisional debridement Anesthesia Used: 5% Lidocaine Gel Depth: Down to and including healthy tissue, in the subcutaneous layer Percentage of wound debrided: 100 Instrument Used: 5mm curette Tissue Removed: subcutaneous tissue and slough Severity: Limited To Skin Breakdown Amount of bleeding with debridement: Mild Bleeding Controlled with: Pressure Patient tolerated procedure well - Additional Wound Wound debrided: breast Laterality: Left Type of Debridement: Excisional debridement Anesthesia Used: 5% Lidocaine Gel Depth: Down to and including healthy tissue, in the subcutaneous layer Percentage of wound debrided: 100 Instrument Used: 7mm curette Tissue Removed: subcutaneous tissue and slough Severity: Fat Layer Exposed Amount of bleeding with debridement: Mild Bleeding Controlled with: Pressure Patient tolerated procedure: Patient tolerated procedure well Assessment/Plan Assessment: 1. Open surgical wound right breast at [facility]. 2. Open surgical woudn left breast at [facility]. 3. Bilateral macromastia. 4. s/p bilateral breast reduction mammaplasty. 5. Smoker. 6. Diabetesmellitus. Plan: Bilateral breast wound at the Tzone are healing satisfactory. Good granulation tissue seen. Continue VAC to the left. Theraskin #1 applied to the right nipple and right Tzone, covered by a wound veil. 100% of the product was used. A wound culture from 07/22/19 was sent from the left breast and showed MRSE and Corynebacterium amycolatum. Wound culture from her recent hospitalization on 07/08/19 was positive for Proteus mirabiis, Enterococcus faecalis, and MRSE. She was on Ceftriaxone IV along with Augmentin and Doxycycline PO. Her weekly labs were showing elevated Creatinine of 1.32. Her Ceftriaxone was discontinued but the Augmentin and Doxycycline were continued. Her Creatnine was 0.98 yesterday. She will no longer need weekly lab work. Renewed Augmentin. Follow up in one week. Code Visit [id number]: [id number] Skin sub graft trnk/arm/leg
== END 2019-09-14 23:59 ==
LOC: WC 13:00
PROVIDERS: Family Provider Family Medicine; PCP Family Medicine; Referring Provider Nurse Practitioner Family; Visit Provider Nurse Practitioner Family
DX: T81.89XA Other complications of procedures, not elsewhere classified, initial encounter (principal); Y83.8 Other surgical procedures as the cause of abnormal reaction of the patient, or of later complication, without mention of misadventure at the time of the procedure; N62 Hypertrophy of breast; E11.9 Type 2 diabetes mellitus without complications; F17.200 Nicotine dependence, unspecified, uncomplicated
CPT/HCPCS: 11042; 11045; 15271; 15272; 97605; 97606; Q4121

== ENCOUNTER → 2019-09-24 12:39 | Outpatient (CLI) | payer MEDICARE, MEDICAID, SELFPAY ==
[2019-09-23 13:16] VITALS: BMI 30.9
[2019-09-24 13:56] LABS: Absolute Lymphocyte Count 5.41 X10^3/uL (0.83-4.51); Absolute Neutrophil Count 10.1 X10^3/uL (2.0-7.7); Basophil# 0.05 X10^3/uL; Basophil% 0.3 % (0-1); Eosinophil# 0.26 X10^3/uL; Eosinophils% 1.6 % (0-5); Hematocrit 41.3 % (37-47); Hemoglobin 13.8 g/dL (12.0-15.0); Lymphocyte # 5.41 X10^3/ul (4.0); Lymphocyte % 32.5 % (19-41); Mean Corp Hgb Conc 33.4 g/dL (32-36); Mean Corpuscular Hgb 29.3 pg (27.0-32.0); Mean Corpuscular Volume 87.7 fL (81-99); Mean Platelet Vol. 9.5 fl (6.2-12.0); Monocyte# 0.77 X10^3/uL; Monocyte% 4.6 % (0-10); NRBC Flagged by Analyzer 0 % (0-5); Neutrophil # 10.06 X10^3/uL (2.7-7.7); Neutrophil % 60.5 % (47-70); POSITIVE DIFFERENTIAL YES; Platelet Count 440 K/mm3 (150-450); RBC Distribution Width CV 13.5 % (11.6-14.6); RBC Distribution Width SD 43.8 fl (35.1-43.9); Red Blood Count 4.71 M/mm3 (4.2-5.4); White Blood Count 16.6 K/mm3 (4.4-11.0)
[2019-09-24 13:58] LABS: Differential Indicated SCAN CRITERIA MET
[2019-09-24 14:11] LABS: Anion Gap 8 (5-15); BUN 12 mg/dL (7-18); BUN/Creat Ratio 11.8 RATIO (10-20); Calcium,Total 9.3 mg/dL (8.5-10.1); Chloride 108 mmol/L (98-107); Creatinine, Serum 1.02 mg/dL (0.55-1.02); EST Glomerular Filtration Rate 61 mL/min (>60); Est Glom Filt Rate - Afr Amer 74 mL/min (>60); Glucose 89 mg/dL (74-106); Potassium 3.4 mmol/L (3.5-5.1); Sodium Level 139 mmol/L (136-145)
[2019-09-25 15:04] LABS: Adrenocorticotropic Hormone 10.9 pg/mL (7.2-63.3)
== END ==
PROVIDERS: Family Provider Family Medicine; PCP Family Medicine; Referring Provider Family Medicine; Visit Provider Family Medicine
DX: E27.40 Unspecified adrenocortical insufficiency (principal)
CPT/HCPCS: 36415; 80048; 82024; 82533; 85025

== ENCOUNTER 2019-10-14 13:00 | Outpatient (RCR) | payer MEDICARE, MEDICAID, SELFPAY ==
[2019-09-15 00:57] VITALS: BP 111/78; PULSE 98; RESP 18; TEMP 37.4
[2019-09-16 11:41] VITALS: BP 128/76; PULSE 99; RESP 16; TEMP 37; BMI 30.9
--- NOTE | 2019-09-16 11:51 | WC ---
tammi left intat to R breast/areola wounds
--- NOTE | 2019-09-16 13:43 | PCM.WC.PN ---
(1) Wound of right breast Status: Chronic Current Visit: Yes Code(s): S21.001A - Unspecified open wound of right breast, initial encounter (2) Wound of left breast Status: Chronic Current Visit: Yes Code(s): S21.002A - Unspecified open wound of left breast, initial encounter (3) Type 2 diabetes mellitus Status: Chronic Current Visit: Yes Code(s): E11.9 - Type 2 diabetes mellitus without complications (4) Smoker Status: Chronic Current Visit: Yes Code(s): F17.200 - Nicotine dependence, unspecified, uncomplicated Type of Wound Date of Service: 09/16/19 Chief Complaint: Nonhealing ulcers bilateral breasts at Tzone and right areola. History of Wound: Surgery 06/21/19 - Bilateral breast reduction mammaplasty. She was recently admitted to hospital on 07/05/19 with elevated WBC and comprosed wound healing. One 07/08/19 the right breast eschar was debrided in the hospital to make wound care easier and to drain infection. Wound VAC was started along with PICC line placement and Ceftriaxone IV antibiotics. Wound culture from 07/08/19 was positive for Proteus mirabilis, Enterococcus faecalis and MRSE. Augmentin and Doxycycline were added. On 07/22/19, there was wound breakdown on the left breast at the Tzone. Debridement was done and a wound culture showed MRSE and Corynebacterium amycolatum. Wound VAC the the left breast with take a VAC holid and start 1/4 strength Dakin's solution. Theraskin #1 applied to right breast and right nipple area. 100% of the product was used and covered with wound veil. Today she denies fever. She states her appetite is ok. Her labs are now WNL. Progress of Wound: Improved. - Physical Exam Vital Signs Temp Pulse Resp BP 98.6 F 99 16 128/76 H 09/16/19 11:41 09/16/19 11:41 09/16/19 11:41 09/16/19 11:41 General: Alert, Oriented x3, Cooperative HEENT: Atraumatic Oral: Moist Mucosa Lungs: Normal air movement Cardiovascular: Regular rate Abdomen: Soft Extremities: Capillary Refill Less than 3 Seconds Skin: Ulcer/ Wound - Left breast Tzone and right breast wounds Wound Measurements and Assessment WC - Nurse 1 - General Ulcer Measurement Start: 09/16/19 11:41 Freq: Status: Active Protocol: Activity Type Activity Date Activity User E-Sign Co-Sign Detail Recorded Client Recorded Date Recorded By Document 09/16/19 11:41 [facility] [id number] 09/16/19 11:51 [facility] 09/16/19 11:41 Wound Center Nurse 1 [Ulcer Assessment] #4- R AREOLA -Combined with other wound No -Current Size (cm) - Length 0.1 -Current Size (cm) - Width 0.1 -Current Size (cm) - Depth 0.1 -Total Square Cm 0.01 -Photo Taken No #3 left breast incision -Combined with other wound No -Current Size (cm) - Length 3.2 -Current Size (cm) - Width 6 -Current Size (cm) - Depth 1 -Total Square Cm 19.2 -Photo Taken No -Epithelialization Small 1-33% -Tunneling No -Undermining/Tunneling Yes -Undermining/Tunneling Starts (O' 10 clock) -Undermining/Tunneling Ends (O'clock) 12 -Maximum Distance (cm) 1.9 -Circular Undermining No -Exudate Amt Small -Exudate Type Serosanguineous -Wound Margin Distinct, Outline Attached -Granulation Amt Large (67-100%) -Granulation Quality Red -Slough/Fibrin Yes -Necrosis Amt Small (1-33%) -Necrotic Tissue Type Adherent Slough -Texture (Flavia-wound Skin Appearance) Assessed, Scarring -Moisture (Flavia-wound Skin Appearance Assessed ) -Color (Flavia-wound Skin Appearance) Assessed -Temperature (Flavia-wound Skin No Abnormality Appearance) (Pt Warm) -Tenderness on Palpation (Flavia-wound No Skin Appearance) -Ulcer Cleansing soapy water -Foul Odor after Cleansing No -Anesthetic Used 4% Lidocaine Solution #2 right breast -Combined with other wound No -Current Size (cm) - Length 0.1 -Current Size (cm) - Width 0.1 -Current Size (cm) - Depth 0.1 -Total Square Cm 0.01 - Nurse 2 - General Ulcer CM Notes Start: 09/16/19 11:41 Freq: Status: Active Protocol: Activity Type Activity Date Activity User E-Sign Co-Sign Detail Recorded Client Recorded Date Recorded By Document 09/16/19 12:11 [id number] 09/16/19 12:19 09/16/19 12:11 Wound Center Nurse 2 [Procedure/Treatment] 5-left side left breast -Time 12:18 -Correct Patient Yes -Correct Side, Site, Position Yes -Correct Procedure Yes -Procedure Performed Yes -Type of Procedure Debridement -Clinical Debridement Subcutaneous -Post Debridement Size (cm) - Length 0.7 -Post Debridement Size (cm) - Width 1.5 -Post Debridement Size (cm) - Depth 0.1 -Total Square Cm 1.05 -Wound/Ulcer Outcome Not Healed -Ulcer Cleansing Rinsed/ Irrigated with Saline -Foul Odor after Cleansing No -Bioengineered Tissue No -Bleeding Controlled with Pressure -Offloading No -Treatment Response Procedure Tolerated Well #4- R AREOLA -Correct Patient No -Correct Side, Site, Position No -Correct Procedure No -Procedure Performed No -Wound/Ulcer Outcome Not Healed #3 left breast incision -Time 12:11 -Correct Patient Yes -Correct Side, Site, Position Yes -Correct Procedure Yes -Procedure Performed Yes -Type of Procedure Debridement -Clinical Debridement Subcutaneous -Post Debridement Size (cm) - Length 3.0 -Post Debridement Size (cm) - Width 5.8 -Post Debridement Size (cm) - Depth 2.5 -Total Square Cm 17.40 -Wound/Ulcer Outcome Not Healed -Ulcer Cleansing Rinsed/ Irrigated with Saline -Foul Odor after Cleansing No -Bioengineered Tissue No -Bleeding Controlled with Pressure -Offloading No -Treatment Response Procedure Tolerated Well #2 right breast -Correct Patient No -Correct Side, Site, Position No -Correct Procedure No -Procedure Performed No -Wound/Ulcer Outcome Not Healed [See Physician Procedure note for Specifics] Pain Scale: 0-10 Numeric [Pain] -Is Patient Pain Free? Yes Musculoskeletal: No Muscle Wasting Neurological: Neuro grossly intact Psych/Mental Status: Normal Affect, Appropriate Debridement Note Post-Debridement Measurements/Treatment WC - Nurse 2 - General Ulcer CM Notes Start: 09/16/19 11:41 Freq: Status: Active Protocol: Activity Type Activity Date Activity User E-Sign Co-Sign Detail Recorded Client Recorded Date Recorded By Document 09/16/19 12:11 [id number] 09/16/19 12:19 09/16/19 12:11 Wound Center Nurse 2 5-left side left breast -Time 12:18 -Correct Patient Yes -Correct Side, Site, Position Yes -Correct Procedure Yes -Procedure Performed Yes -Type of Procedure Debridement -Clinical Debridement Subcutaneous -Post Debridement Size (cm) - Length 0.7 -Post Debridement Size (cm) - Width 1.5 -Post Debridement Size (cm) - Depth 0.1 -Total Square Cm 1.05 -Wound/Ulcer Outcome Not Healed -Ulcer Cleansing Rinsed/ Irrigated with Saline -Foul Odor after Cleansing No -Bioengineered Tissue No -Bleeding Controlled with Pressure -Offloading No -Treatment Response Procedure Tolerated Well #4- R AREOLA -Correct Patient No -Correct Side, Site, Position No -Correct Procedure No -Procedure Performed No -Wound/Ulcer Outcome Not Healed #3 left breast incision -Time 12:11 -Correct Patient Yes -Correct Side, Site, Position Yes -Correct Procedure Yes -Procedure Performed Yes -Type of Procedure Debridement -Clinical Debridement Subcutaneous -Post Debridement Size (cm) - Length 3.0 -Post Debridement Size (cm) - Width 5.8 -Post Debridement Size (cm) - Depth 2.5 -Total Square Cm 17.40 -Wound/Ulcer Outcome Not Healed -Ulcer Cleansing Rinsed/ Irrigated with Saline -Foul Odor after Cleansing No -Bioengineered Tissue No -Bleeding Controlled with Pressure -Offloading No -Treatment Response Procedure Tolerated Well #2 right breast -Correct Patient No -Correct Side, Site, Position No -Correct Procedure No -Procedure Performed No -Wound/Ulcer Outcome Not Healed Pain Scale: 0-10 Numeric Is Patient Pain Free? Yes Wound debrided: breast tzone and nipple at 12 o'clock Laterality: Right Type of Debridement: Excisional debridement Anesthesia Used: 5% Lidocaine Gel Depth: Down to and including healthy tissue, in the subcutaneous layer Percentage of wound debrided: 100 Instrument Used: 5mm curette Tissue Removed: subcutaneous tissue and slough Severity: Fat Layer Exposed Amount of bleeding with debridement: Mild Bleeding Controlled with: Pressure Patient tolerated procedure well - Additional Wound Wound debrided: breast wound and left lateral incision line open area Laterality: Left Type of Debridement: Excisional debridement Anesthesia Used: 5% Lidocaine Gel Depth: Down to and including healthy tissue, in the subcutaneous layer Percentage of wound debrided: 100 Instrument Used: 7mm curette Tissue Removed: subcutaneous tissue and slough Severity: Fat Layer Exposed Amount of bleeding with debridement: Mild Bleeding Controlled with: Pressure Patient tolerated procedure: Patient tolerated procedure well Assessment/Plan Active Problems (Last Reviewed 06/24/19 @ 16:39 by Deedee Newton) Wound of right breast (Chronic) Wound of left breast (Chronic) Type 2 diabetes mellitus (Chronic) Smoker (Chronic) Assessment: 1. Nonhealing ulcers bilateral breasts at Tzone and right areola. 2. Bilateral macromastia. 3. s/p bilateral breast reduction mammaplasty. 4. Smoker. 5. Diabetes mellitus. 6. Increased Creatinine, probably medication related from antibiotics, resolved after stopping the Ceftriaxone. Plan: Bilateral breast wound at the Tzone are healing satisfactory. Good granulation tissue seen. Wound VAC holiday and start 1/4 strength Dakin's solution to the left. Theraskin #1 applied to the right nipple and right Tzone, covered by a wound veil last week. Will leave Theraskin in place. Left incision line has small opening that will place collagen hydrogel daily. A wound culture from 07/22/19 was sent from the left breast and showed MRSE and Corynebacterium amycolatum. Wound culture from her recent hospitalization on 07/08/19 was positive for Proteus mirabiis, Enterococcus faecalis, and MRSE. She was on Ceftriaxone IV along with Augmentin and Doxycycline PO. Her weekly labs were showing elevated Creatinine of 1.32. Her Ceftriaxone was discontinued but the Augmentin and Doxycycline were continued. Her Creatnine was 0.98 yesterday. She will no longer need weekly lab work. Continue Augmentin. Renew Percocet (14). [place] reviewed. Follow up in one week. Code Visit 55071
[2019-09-23 13:16] VITALS: BP 128/80; PULSE 86; RESP 16; TEMP 37.2; BMI 30.9
--- NOTE | 2019-09-23 14:51 | PCM.WC.PN ---
(1) Wound of right breast Status: Chronic Current Visit: Yes Code(s): S21.001A - Unspecified open wound of right breast, initial encounter (2) Wound of left breast Status: Chronic Current Visit: Yes Code(s): S21.002A - Unspecified open wound of left breast, initial encounter (3) Smoker Status: Chronic Current Visit: Yes Code(s): F17.200 - Nicotine dependence, unspecified, uncomplicated (4) Type 2 diabetes mellitus Status: Chronic Current Visit: Yes Code(s): E11.9 - Type 2 diabetes mellitus without complications Type of Wound Date of Service: 09/23/19 Chief Complaint: Nonhealing ulcers bilateral breasts at Tzone and right areola. History of Wound: Surgery 06/21/19 - Bilateral breast reduction mammaplasty. She was recently admitted to hospital on 07/05/19 with elevated WBC and comprosed wound healing. One 07/08/19 the right breast eschar was debrided in the hospital to make wound care easier and to drain infection. Wound VAC was started along with PICC line placement and Ceftriaxone IV antibiotics. Wound culture from 07/08/19 was positive for Proteus mirabilis, Enterococcus faecalis and MRSE. Augmentin and Doxycycline were added. On 07/22/19, there was wound breakdown on the left breast at the Tzone. Debridement was done and a wound culture showed MRSE and Corynebacterium amycolatum. DC wound VAC the the left breast with take a VAC holid and continue 1/4 strength Dakin's solution. Theraskin #2 applied to right breast. 100% of the product was used and covered with wound veil. Right nippl collagen hydrogel. Today she denies fever. She states her appetite is ok. Her labs are now WNL. Progress of Wound: Improved. - Physical Exam Vital Signs Temp Pulse Resp BP 98.9 F 86 16 128/80 H 09/23/19 13:16 09/23/19 13:16 09/23/19 13:16 09/23/19 13:16 General: Alert, Oriented x3, Cooperative HEENT: Atraumatic Oral: Moist Mucosa Lungs: Normal air movement Cardiovascular: Regular rate Extremities: Capillary Refill Less than 3 Seconds Skin: Ulcer/ Wound - Right and left breast wounds with right nipple opened area at 12 o'clock. Left lateral breast incision is healed today Wound Measurements and Assessment WC - Nurse 1 - General Ulcer Measurement Start: 09/16/19 11:41 Freq: Status: Active Protocol: Activity Type Activity Date Activity User E-Sign Co-Sign Detail Recorded Client Recorded Date Recorded By Document 09/23/19 13:16 [facility] [id number] 09/23/19 13:32 [facility] 09/23/19 13:16 Wound Center Nurse 1 [Ulcer Assessment] 5-left side left breast -Combined with other wound No -Current Size (cm) - Length 0.1 -Current Size (cm) - Width 0.1 -Current Size (cm) - Depth 0.1 -Total Square Cm 0.01 -Photo Taken No -Epithelialization Large 67-100% -Tunneling No -Undermining/Tunneling No -Circular Undermining No -Exudate Amt None Present -Temperature (Flavia-wound Skin No Abnormality Appearance) (Pt Warm) -Tenderness on Palpation (Flavia-wound No Skin Appearance) -Ulcer Cleansing Rinsed/ Irrigated with Saline -Foul Odor after Cleansing No #4- R AREOLA -Combined with other wound No -Current Size (cm) - Length 0.1 -Current Size (cm) - Width 0.1 -Current Size (cm) - Depth 0.1 -Total Square Cm 0.01 -Temperature (Flavia-wound Skin No Abnormality Appearance) (Pt Warm) -Tenderness on Palpation (Flavia-wound Yes Skin Appearance) -Ulcer Cleansing soapy water -Foul Odor after Cleansing No -Anesthetic Used 4% Lidocaine Solution #3 left breast incision -Combined with other wound No -Current Size (cm) - Length 3.8 -Current Size (cm) - Width 6.1 -Current Size (cm) - Depth 2 -Total Square Cm 23.18 -Photo Taken No -Epithelialization Small 1-33% -Tunneling No -Undermining/Tunneling Yes -Undermining/Tunneling Starts (O' 10 clock) -Undermining/Tunneling Ends (O'clock) 12 -Maximum Distance (cm) 2 -Circular Undermining No -Exudate Amt Medium -Exudate Type Serosanguineous -Wound Margin Distinct, Outline Attached -Granulation Amt Large (67-100%) -Granulation Quality Red -Slough/Fibrin Yes -Necrosis Amt Small (1-33%) -Necrotic Tissue Type Adherent Slough -Texture (Flavia-wound Skin Appearance) Assessed, Scarring -Moisture (Flavia-wound Skin Appearance Assessed ) -Color (Flavia-wound Skin Appearance) Assessed -Temperature (Flavia-wound Skin No Abnormality Appearance) (Pt Warm) -Tenderness on Palpation (Flavia-wound Yes Skin Appearance) -Ulcer Cleansing soapy water -Foul Odor after Cleansing No -Anesthetic Used 4% Lidocaine Solution #2 right breast -Combined with other wound No -Current Size (cm) - Length 0.1 -Current Size (cm) - Width 0.1 -Current Size (cm) - Depth 0.1 -Total Square Cm 0.01 -Temperature (Flavia-wound Skin No Abnormality Appearance) (Pt Warm) -Tenderness on Palpation (Flavia-wound Yes Skin Appearance) -Ulcer Cleansing soapy water -Foul Odor after Cleansing No -Anesthetic Used 4% Lidocaine Solution WC - Nurse 2 - General Ulcer CM Notes Start: 09/16/19 11:41 Freq: Status: Active Protocol: Activity Type Activity Date Activity User E-Sign Co-Sign Detail Recorded Client Recorded Date Recorded By Document 09/23/19 13:46 [id number] 09/23/19 14:01 TAYLA 09/23/19 13:46 Wound Center Nurse 2 [Procedure/Treatment] 5-left side left breast -Correct Patient No -Correct Side, Site, Position No -Correct Procedure No -Procedure Performed No -Post Debridement Size (cm) - Length 0 -Post Debridement Size (cm) - Width 0 -Post Debridement Size (cm) - Depth 0 -Total Square Cm 0 -Wound/Ulcer Outcome Healed- Epithelialized #4- R AREOLA -Time 13:52 -Correct Patient Yes -Correct Side, Site, Position Yes -Correct Procedure Yes -Procedure Performed Yes -Type of Procedure Debridement -Clinical Debridement Subcutaneous -Post Debridement Size (cm) - Length 0.5 -Post Debridement Size (cm) - Width 0.5 -Post Debridement Size (cm) - Depth 0.1 -Total Square Cm 0.25 -Wound/Ulcer Outcome Not Healed -Ulcer Cleansing Rinsed/ Irrigated with Saline -Foul Odor after Cleansing No -Bioengineered Tissue No -Bleeding Controlled with Pressure -Offloading No -Treatment Response Procedure Tolerated Well #3 left breast incision -Time 14:01 -Correct Patient Yes -Correct Side, Site, Position Yes -Correct Procedure Yes -Procedure Performed Yes -Type of Procedure Debridement -Clinical Debridement Subcutaneous -Post Debridement Size (cm) - Length 3.7 -Post Debridement Size (cm) - Width 6.0 -Post Debridement Size (cm) - Depth 2.5 -Total Square Cm 22.20 -Wound/Ulcer Outcome Not Healed -Ulcer Cleansing Rinsed/ Irrigated with Saline -Foul Odor after Cleansing No -Bioengineered Tissue No -Bleeding Controlled with Pressure -Offloading No -Treatment Response Procedure Tolerated Well #2 right breast -Time 13:52 -Correct Patient Yes -Correct Side, Site, Position Yes -Correct Procedure Yes -Procedure Performed Yes -Type of Procedure Debridement -Clinical Debridement Subcutaneous -Post Debridement Size (cm) - Length 3.5 -Post Debridement Size (cm) - Width 6.5 -Post Debridement Size (cm) - Depth 0.3 -Total Square Cm 22.75 -Wound/Ulcer Outcome Not Healed -Ulcer Cleansing Rinsed/ Irrigated with Saline -Foul Odor after Cleansing No -Bioengineered Tissue Yes -Type of bioengineered Tissue THERASKIN -Expiration Date 08/28/22 -Product Lot Number [id number] -Percent Used 100 -Saline Lot Number [id number] -Bleeding Controlled with Pressure -Offloading No -Treatment Response Procedure Tolerated Well [See Physician Procedure note for Specifics] Pain Scale: 0-10 Numeric [Pain] -Is Patient Pain Free? Yes Musculoskeletal: No Muscle Wasting Neurological: Neuro grossly intact Psych/Mental Status: Appropriate, - - Very weepy today. Denies depression but states she has been having increased pain of left breast with Dakin's solution and is out of pain meds and has been in a lot of pain. Debridement Note Post-Debridement Measurements/Treatment WC - Nurse 2 - General Ulcer CM Notes Start: 09/16/19 11:41 Freq: Status: Active Protocol: Activity Type Activity Date Activity User E-Sign Co-Sign Detail Recorded Client Recorded Date Recorded By Document 09/16/19 12:11 [email or web address] [id number] 09/16/19 12:19 Document 09/23/19 13:46 [email or web address] [id number] 09/23/19 14:01 09/16/19 09/23/19 12:11 13:46 Wound Center Nurse 2 5-left side left breast -Time 12:18 -Correct Patient Yes No -Correct Side, Site, Position Yes No -Correct Procedure Yes No -Procedure Performed Yes No -Type of Procedure Debridement -Clinical Debridement Subcutaneous -Post Debridement Size (cm) - Length 0.7 0 -Post Debridement Size (cm) - Width 1.5 0 -Post Debridement Size (cm) - Depth 0.1 0 -Total Square Cm 1.05 0 -Wound/Ulcer Outcome Not Healed Healed- Epithelialized -Ulcer Cleansing Rinsed/ Irrigated with Saline -Foul Odor after Cleansing No -Bioengineered Tissue No -Bleeding Controlled with Pressure -Offloading No -Treatment Response Procedure Tolerated Well #4- R AREOLA -Time 13:52 -Correct Patient No Yes -Correct Side, Site, Position No Yes -Correct Procedure No Yes -Procedure Performed No Yes -Type of Procedure Debridement -Clinical Debridement Subcutaneous -Post Debridement Size (cm) - Length 0.5 -Post Debridement Size (cm) - Width 0.5 -Post Debridement Size (cm) - Depth 0.1 -Total Square Cm 0.25 -Wound/Ulcer Outcome Not Healed Not Healed -Ulcer Cleansing Rinsed/ Irrigated with Saline -Foul Odor after Cleansing No -Bioengineered Tissue No -Bleeding Controlled with Pressure -Offloading No -Treatment Response Procedure Tolerated Well #3 left breast incision -Time 12:11 14:01 -Correct Patient Yes Yes -Correct Side, Site, Position Yes Yes -Correct Procedure Yes Yes -Procedure Performed Yes Yes -Type of Procedure Debridement Debridement -Clinical Debridement Subcutaneous Subcutaneous -Post Debridement Size (cm) - Length 3.0 3.7 -Post Debridement Size (cm) - Width 5.8 6.0 -Post Debridement Size (cm) - Depth 2.5 2.5 -Total Square Cm 17.40 22.20 -Wound/Ulcer Outcome Not Healed Not Healed -Ulcer Cleansing Rinsed/ Rinsed/ Irrigated with Irrigated with Saline Saline -Foul Odor after Cleansing No No -Bioengineered Tissue No No -Bleeding Controlled with Pressure Pressure -Offloading No No -Treatment Response Procedure Procedure Tolerated Well Tolerated Well #2 right breast -Time 13:52 -Correct Patient No Yes -Correct Side, Site, Position No Yes -Correct Procedure No Yes -Procedure Performed No Yes -Type of Procedure Debridement -Clinical Debridement Subcutaneous -Post Debridement Size (cm) - Length 3.5 -Post Debridement Size (cm) - Width 6.5 -Post Debridement Size (cm) - Depth 0.3 -Total Square Cm 22.75 -Wound/Ulcer Outcome Not Healed Not Healed -Ulcer Cleansing Rinsed/ Irrigated with Saline -Foul Odor after Cleansing No -Bioengineered Tissue Yes -Type of bioengineered Tissue THERASKIN -Expiration Date 08/28/22 -Product Lot Number [id number] -Percent Used 100 -Saline Lot Number [id number] -Bleeding Controlled with Pressure -Offloading No -Treatment Response Procedure Tolerated Well Pain Scale: 0-10 Numeric Is Patient Pain Free? Yes Yes Wound debrided: breast t zone and nipple at 12 o'clock Laterality: Right Type of Debridement: Excisional debridement Anesthesia Used: 5% Lidocaine Gel Depth: Down to and including healthy tissue Percentage of wound debrided: 100 Instrument Used: 5mm curette Tissue Removed: Subcutaneous tissue and slough Severity: Fat Layer Exposed Amount of bleeding with debridement: Mild Bleeding Controlled with: Pressure, Compression and gauze Patient tolerated procedure well - Additional Wound Wound debrided: breast at tzone Laterality: Left Type of Debridement: Excisional debridement Anesthesia Used: 5% Lidocaine Gel Depth: Down to and including healthy tissue, in the subcutaneous layer Percentage of wound debrided: 100 Instrument Used: 7mm curette Tissue Removed: Subcutaneous tissue and slough Severity: Fat Layer Exposed Amount of bleeding with debridement: Mild Bleeding Controlled with: Pressure, Compression and gauze Patient tolerated procedure: Patient tolerated procedure well Assessment/Plan Active Problems (Last Reviewed 06/24/19 @ 16:39 by Deedee Newton) Wound of right breast (Chronic) Wound of left breast (Chronic) Type 2 diabetes mellitus (Chronic) Smoker (Chronic) Assessment: 1. Nonhealing ulcers bilateral breasts at Tzone and right areola. 2. Bilateral macromastia. 3. s/p bilateral breast reduction mammaplasty. 4. Smoker. 5. Diabetes mellitus. 6. Increased Creatinine, probably medication related from antibiotics, resolved after stopping the Ceftriaxone. Plan: Bilateral breast wound at the Tzone are healing satisfactory. Good granulation tissue seen. Wound VAC holiday will DC VAC and continue 1/4 strength Dakin's solution to the left. Theraskin #2 applied to the right right Tzone, covered by a wound veil. 100 % of product was used. Right nipple place collagen hydrogel daily. Left incision line has small opening is healed. A wound culture from 07/22/19 was sent from the left breast and showed MRSE and Corynebacterium amycolatum. Wound culture from her recent hospitalization on 07/08/19 was positive for Proteus mirabiis, Enterococcus faecalis, and MRSE. She was on Ceftriaxone IV along with Augmentin and Doxycycline PO. Her weekly labs were showing elevated Creatinine of 1.32. Her Ceftriaxone was discontinued but the Augmentin and Doxycycline were continued. Her Creatnine was 0.98 yesterday. She will no longer need weekly lab work. Continue Augmentin. Renew Percocet 7.5 mg(28). Unable to review [place] due to their website was down. Follow up in one week. Code Visit 111xxx-113xx: [id number] Mar[place]ruz subq tissue 20 sq cm/< 150xxx-152xx: [id number] Skin sub graft trnk/arm/leg - right breast
[2019-09-30 13:46] VITALS: BP 151/79; PULSE 98; RESP 20; TEMP 37.2; BMI 30.9
--- NOTE | 2019-09-30 18:01 | PN.PCM_ITS ---
Type of Wound Date of Service: 10/02/19 Chief Complaint: Nonhealing ulcers bilateral breasts at [place] and right areola. History of Wound: Surgery 06/21/19 - Bilateral breast reduction mammaplasty. She was recently admitted to hospital on 07/05/19 with elevated WBC and comprosed wound healing. On 07/08/19 the right breast eschar was debrided in the hospital to make wound care easier and to drain infection. Wound VAC was started along with PICC line placement and Ceftriaxone IV antibiotics. Wound culture from 07/08/19 was positive for Proteus mirabilis, Enterococcus faecalis and MRSE. Augmentin and Doxycycline were added and she has finished them. On 07/22/19, there was wound breakdown on the left breast at the [facility]. Debridement was done and a wound culture showed MRSE and Corynebacterium amycolatum. During her IV antibiotics, the Creatinine increased to 1.32 on 08/12/19. The Ceftriaxone was stopped. The following week on 08/18/19 the Creatinine improved to normal at 0.98. Wound care - Theraskin #2 applied to right breast at [facility]. Collagen Hydrogel to the right nipple. [facility]. Today she denies fever. She states her appetite is ok. Progress of Wound: Right nipple ulcer is healed. The bilateral Tzone ulcers are improved. Thera-skin #2 has been applied to the right breast at the [place]. - Physical Exam Vital Signs Temp Pulse Resp BP 98.9 F 98 20 H 151/79 H 09/30/19 13:46 09/30/19 13:46 09/30/19 13:46 09/30/19 13:46 Wound Measurements and Assessment WC - Nurse 1 - General Ulcer Measurement Start: 09/16/19 11:41 Freq: Status: Active Protocol: Activity Type Activity Date Activity User E-Sign Co-Sign Detail Recorded Client Recorded Date Recorded By Document 09/30/19 13:46 DL [id number] 09/30/19 13:59 DL 09/30/19 13:46 Wound Center Nurse 1 [Ulcer Assessment] #4- R AREOLA -Current Size (cm) - Length 0.1 -Current Size (cm) - Width 0.1 -Current Size (cm) - Depth 0.1 -Total Square Cm 0.01 -Photo Taken No -Exudate Amt None Present -Wound Margin Flat & Intact -Granulation Amt Large (67-100%) -Granulation Quality Pale,[place] -Necrosis Amt None Present (0 %) -Structure Exposed N/A -Texture (Flavia-wound Skin Appearance) Scarring -Moisture (Flavia-wound Skin Appearance No Abnormality ) -Color (Flavia-wound Skin Appearance) No Abnormality -Temperature (Flavia-wound Skin No Abnormality Appearance) (Pt Warm) -Tenderness on Palpation (Flavia-wound No Skin Appearance) -Ulcer Cleansing Wound Cleanser -Foul Odor after Cleansing Yes -Anesthetic Used 4% Lidocaine Solution,5% Lidocaine Gel #3 left breast incision -Current Size (cm) - Length 3 -Current Size (cm) - Width 5.7 -Current Size (cm) - Depth 0.1 -Total Square Cm 17.1 -Undermining/Tunneling Starts (O' 9 clock) -Undermining/Tunneling Ends (O'clock) 11 -Maximum Distance (cm) 2.2 -Circular Undermining No -Exudate Amt Medium -Exudate Type Serosanguineous -Wound Margin Distinct, Outline Attached -Granulation Amt Large (67-100%) -Granulation Quality Red -Necrosis Amt Small (1-33%) -Necrotic Tissue Type Adherent Slough -Structure Exposed N/A -Texture (Flavia-wound Skin Appearance) Scarring -Moisture (Flavia-wound Skin Appearance No Abnormality ) -Color (Flavia-wound Skin Appearance) No Abnormality -Temperature (Flavia-wound Skin No Abnormality Appearance) (Pt Warm) -Tenderness on Palpation (Flavia-wound No Skin Appearance) -Ulcer Cleansing Wound Cleanser -Foul Odor after Cleansing No -Anesthetic Used 4% Lidocaine Solution #2 right breast -Photo Taken No -Exudate Amt Medium -Exudate Type Yellow/Green -Ulcer Cleansing Cleanser to Flavia Ulcer only . Theraskin left intact -Foul Odor after Cleansing No WC - Nurse 2 - General Ulcer CM Notes Start: 09/16/19 11:41 Freq: Status: Active Protocol: Activity Type Activity Date Activity User E-Sign Co-Sign Detail Recorded Client Recorded Date Recorded By Document 09/30/19 14:22 DL [id number] 09/30/19 14:25 DL 09/30/19 14:22 Wound Center Nurse 2 [Procedure/Treatment] #4- R AREOLA -Correct Patient No -Correct Side, Site, Position No -Correct Procedure No -Procedure Performed No -Wound/Ulcer Outcome Not Healed #3 left breast incision -Time 14:23 -Correct Patient Yes -Correct Side, Site, Position Yes -Correct Procedure Yes -Procedure Performed Yes -Type of Procedure Debridement -Clinical Debridement Subcutaneous -Post Debridement Size (cm) - Length 3 -Post Debridement Size (cm) - Width 5.8 -Post Debridement Size (cm) - Depth 2.4 -Total Square Cm 17.4 -Wound/Ulcer Outcome Not Healed -Ulcer Cleansing Rinsed/ Irrigated with Saline -Foul Odor after Cleansing No -Bioengineered Tissue No -Bleeding Controlled with Pressure -Offloading No -Treatment Response Procedure Tolerated Well #2 right breast -Correct Patient No -Correct Side, Site, Position No -Correct Procedure No -Procedure Performed No -Wound/Ulcer Outcome Not Healed [See Physician Procedure note for Specifics] Pain Scale: 0-10 Numeric [Pain] -Is Patient Pain Free? Yes Debridement Note Post-Debridement Measurements/Treatment WC - Nurse 2 - General Ulcer CM Notes Start: 09/16/19 11:41 Freq: Status: Active Protocol: Activity Type Activity Date Activity User E-Sign Co-Sign Detail Recorded Client Recorded Date Recorded By Document 09/16/19 12:11 [id number] 09/16/19 12:19 Document 09/23/19 13:46 [id number] 09/23/19 14:01 JF Document 09/30/19 14:22 DL [id number] 09/30/19 14:25 DL 09/16/19 09/23/19 09/30/19 12:11 13:46 14:22 Wound Center Nurse 2 5-left side left breast -Time 12:18 -Correct Patient Yes No -Correct Side, Site, Position Yes No -Correct Procedure Yes No -Procedure Performed Yes No -Type of Procedure Debridement -Clinical Debridement Subcutaneous -Post Debridement Size (cm) - Length 0.7 0 -Post Debridement Size (cm) - Width 1.5 0 -Post Debridement Size (cm) - Depth 0.1 0 -Total Square Cm 1.05 0 -Wound/Ulcer Outcome Not Healed Healed- Epithelialized -Ulcer Cleansing Rinsed/ Irrigated with Saline -Foul Odor after Cleansing No -Bioengineered Tissue No -Bleeding Controlled with Pressure -Offloading No -Treatment Response Procedure Tolerated Well #4- R AREOLA -Time 13:52 -Correct Patient No Yes No -Correct Side, Site, Position No Yes No -Correct Procedure No Yes No -Procedure Performed No Yes No -Type of Procedure Debridement -Clinical Debridement Subcutaneous -Post Debridement Size (cm) - Length 0.5 -Post Debridement Size (cm) - Width 0.5 -Post Debridement Size (cm) - Depth 0.1 -Total Square Cm 0.25 -Wound/Ulcer Outcome Not Healed Not Healed Not Healed -Ulcer Cleansing Rinsed/ Irrigated with Saline -Foul Odor after Cleansing No -Bioengineered Tissue No -Bleeding Controlled with Pressure -Offloading No -Treatment Response Procedure Tolerated Well #3 left breast incision -Time 12:11 14:01 14:23 -Correct Patient Yes Yes Yes -Correct Side, Site, Position Yes Yes Yes -Correct Procedure Yes Yes Yes -Procedure Performed Yes Yes Yes -Type of Procedure Debridement Debridement Debridement -Clinical Debridement Subcutaneous Subcutaneous Subcutaneous -Post Debridement Size (cm) - Length 3.0 3.7 3 -Post Debridement Size (cm) - Width 5.8 6.0 5.8 -Post Debridement Size (cm) - Depth 2.5 2.5 2.4 -Total Square Cm 17.40 22.20 17.4 -Wound/Ulcer Outcome Not Healed Not Healed Not Healed -Ulcer Cleansing Rinsed/ Rinsed/ Rinsed/ Irrigated with Irrigated with Irrigated with Saline Saline Saline -Foul Odor after Cleansing No No No -Bioengineered Tissue No No No -Bleeding Controlled with Pressure Pressure Pressure -Offloading No No No -Treatment Response Procedure Procedure Procedure Tolerated Well Tolerated Well Tolerated Well #2 right breast -Time 13:52 -Correct Patient No Yes No -Correct Side, Site, Position No Yes No -Correct Procedure No Yes No -Procedure Performed No Yes No -Type of Procedure Debridement -Clinical Debridement Subcutaneous -Post Debridement Size (cm) - Length 3.5 -Post Debridement Size (cm) - Width 6.5 -Post Debridement Size (cm) - Depth 0.3 -Total Square Cm 22.75 -Wound/Ulcer Outcome Not Healed Not Healed Not Healed -Ulcer Cleansing Rinsed/ Irrigated with Saline -Foul Odor after Cleansing No -Bioengineered Tissue Yes -Type of bioengineered Tissue THERASKIN -Expiration Date 08/28/22 -Product Lot Number [id number] -Percent Used 100 -Saline Lot Number [id number] -Bleeding Controlled with Pressure -Offloading No -Treatment Response Procedure Tolerated Well Pain Scale: 0-10 Numeric Is Patient Pain Free? Yes Yes Yes Wound debrided: #2 Right breast. Laterality: Right Wound Grade/Stage: 2. No debridement was completed today - She has Thera-skin #2 on the breast ulcer. The outer veil was changed today. Another Thera-skin application will be done next week. - Additional Wound Wound debrided: #3 Left breast. Laterality: Left Wound Grade/Stage: 2. Type of Debridement: Excisional debridement Anesthesia Used: 4% Lidocaine Solution Depth: Down to and including healthy tissue, in the subcutaneous layer Percentage of wound debrided: 100 Instrument Used: 5mm curette Tissue Removed: subcutaneous tissue. Severity: Fat Layer Exposed Amount of bleeding with debridement: Mild Bleeding Controlled with: Pressure Patient tolerated procedure: Patient tolerated procedure well - Additional Wound Wound debrided: #4 Right nipple. Laterality: Right Wound Grade/Stage: 2. Patient tolerated procedure: - - No debridement was done today as the ulcer has healed. Assessment/Plan Active Problems (Last Reviewed 06/24/19 @ 16:39 by Deedee Newton) Wound of right breast (Chronic) Wound of left breast (Chronic) Type 2 diabetes mellitus (Chronic) Smoker (Chronic) Assessment: 1. Nonhealing ulcers bilateral breasts at [facility]. 2. Ulcer right nipple areola, healed. 3. Bilateral macromastia. 4. s/p bilateral breast reduction mammaplasty. 5. Smoker. 6. Diabetes mellitus. 7. Increased Creatinine, probably medication related from antibiotics, resolved after stopping the Ceftriaxone. Plan: The right nipple ulcer is healed. There is Thera-skin #2 on the right breast at [facility]. The outer veil was changed today. Another Thera-skin application will be done next week. Continue Dakin's to the left breast at [facility]. A wound culture from 07/22/19 was sent from the left breast and showed MRSE and Corynebacterium amycolatum. Wound culture from her recent hospitalization on 07/08/19 was postive for Proteus mirabilis, Enterococcus faecalis and MRSE. She was on Ceftriaxone IV along with Augmentin and Doxycycline PO. She stopped the Ceftriaxone because of increased Creatinine at 1.32 which improved to normal at 0.98 after stopping the antibiotic. She has finished the Augmentin and the Doxycycline. Prealbumin from 06/22/19 was 17.8. Encouraged nutritional supplementation with protein to help the healing process. Renewed her Percocet for pain, 7.5 mg (30 tabs). Follow up one week. Encouraged patient to stop smoking as it may have deleterious effects on wound healing. With the improvement in the healing of the ulcers, may consider a skin substitute. Code Visit [id number]: 90327 Mar[place] subq tissue 20 sq cm/< - ICD-10 - L98.492, T14.8xxA, N62, E11.9, F17.200
[2019-10-07 13:21] VITALS: BP 171/102; PULSE 91; RESP 18; TEMP 37.4; BMI 30.9
--- NOTE | 2019-10-07 15:56 | PCM.WC.PN ---
(1) Wound of right breast Status: Chronic Code(s): S21.001A - Unspecified open wound of right breast, initial encounter (2) Wound of left breast Status: Chronic Code(s): S21.002A - Unspecified open wound of left breast, initial encounter (3) Smoker Status: Chronic Code(s): F17.200 - Nicotine dependence, unspecified, uncomplicated (4) Type 2 diabetes mellitus Status: Chronic Code(s): E11.9 - Type 2 diabetes mellitus without complications Type of Wound Date of Service: 10/07/19 Chief Complaint: Nonhealing ulcers bilateral breasts at Tzone and right areola. History of Wound: Surgery 06/21/19 - Bilateral breast reduction mammaplasty. She was recently admitted to hospital on 07/05/19 with elevated WBC and comprosed wound healing. On 07/08/19 the right breast eschar was debrided in the hospital to make wound care easier and to drain infection. Wound VAC was started along with PICC line placement and Ceftriaxone IV antibiotics. Wound culture from 07/08/19 was positive for Proteus mirabilis, Enterococcus faecalis and MRSE. Augmentin and Doxycycline were added and she has finished them. On 07/22/19, there was wound breakdown on the left breast at the Tzone. Debridement was done and a wound culture showed MRSE and Corynebacterium amycolatum. During her IV antibiotics, the Creatinine increased to 1.32 on 08/12/19. The Ceftriaxone was stopped. The following week on 08/18/19 the Creatinine improved to normal at 0.98. Wound care - Theraskin #3 applied to right breast at Tzone. Right nipple is healed. Dakin's to the left breast at Tzone. veil. Today she denies fever. She states her appetite is ok. Progress of Wound: The bilateral Tzone ulcers are improved. Thera-skin #3 has been applied to the right breast at the Tzone. - Physical Exam Vital Signs Temp Pulse Resp BP 99.3 F H 91 18 171/102 H 10/07/19 13:21 10/07/19 13:21 10/07/19 13:21 10/07/19 13:21 General: Alert, Oriented x3, Cooperative HEENT: Atraumatic Oral: Moist Mucosa Lungs: Normal air movement Cardiovascular: Regular rate Extremities: Capillary Refill Less than 3 Seconds Skin: Ulcer/ Wound - right and left breast tzone Wound Measurements and Assessment WC - Nurse 1 - General Ulcer Measurement Start: 09/16/19 11:41 Freq: Status: Active Protocol: Activity Type Activity Date Activity User E-Sign Co-Sign Detail Recorded Client Recorded Date Recorded By Document 10/07/19 13:21 MW [id number] 10/07/19 13:31 MW 10/07/19 13:21 Wound Center Nurse 1 [Ulcer Assessment] #3 left breast incision -Combined with other wound No -Current Size (cm) - Length 2.5 -Current Size (cm) - Width 5.2 -Current Size (cm) - Depth 2.1 -Total Square Cm 13.00 -Photo Taken No -Epithelialization Small 1-33% -Tunneling No -Undermining/Tunneling No -Circular Undermining No -Exudate Amt Medium -Exudate Type Serosanguineous -Wound Margin Distinct, Outline Attached -Granulation Amt Large (67-100%) -Granulation Quality Red -Slough/Fibrin Yes -Necrosis Amt Small (1-33%) -Necrotic Tissue Type Adherent Slough -Structure Exposed N/A -Texture (Flavia-wound Skin Appearance) Assessed, Scarring -Moisture (Flavia-wound Skin Appearance No Abnormality, ) Assessed -Color (Flavia-wound Skin Appearance) No Abnormality, Assessed -Temperature (Flavia-wound Skin No Abnormality Appearance) (Pt Warm) -Tenderness on Palpation (Flavia-wound Yes Skin Appearance) -Ulcer Cleansing soap and water -Foul Odor after Cleansing No -Anesthetic Used 4% Lidocaine Solution #2 right breast -Combined with other wound No -Current Size (cm) - Length 4.0 -Current Size (cm) - Width 8.2 -Current Size (cm) - Depth 0.2 -Total Square Cm 32.80 -Photo Taken No -Epithelialization None Present -Tunneling No -Undermining/Tunneling No -Circular Undermining No -Exudate Amt Large -Exudate Type Serosanguineous -Wound Margin Flat & Intact -Granulation Amt Medium (34-66%) -Granulation Quality Catherine -Slough/Fibrin Yes -Necrosis Amt Medium (34-66%) -Necrotic Tissue Type Adherent Slough -Structure Exposed N/A -Texture (Flavia-wound Skin Appearance) Assessed, Scarring -Moisture (Flavia-wound Skin Appearance No Abnormality, ) Assessed -Color (Flavia-wound Skin Appearance) No Abnormality, Assessed -Temperature (Flavia-wound Skin No Abnormality Appearance) (Pt Warm) -Tenderness on Palpation (Flavia-wound No Skin Appearance) -Ulcer Cleansing soap and water [Edema Assessment] -Lower Limb Edema Present No WC - Nurse 2 - General Ulcer CM Notes Start: 09/16/19 11:41 Freq: Status: Active Protocol: Activity Type Activity Date Activity User E-Sign Co-Sign Detail Recorded Client Recorded Date Recorded By Document 10/07/19 14:04 [id number] 10/07/19 14:06 10/07/19 14:04 Wound Center Nurse 2 [Procedure/Treatment] #4- R AREOLA -Correct Patient No -Correct Side, Site, Position No -Correct Procedure No -Procedure Performed No -Post Debridement Size (cm) - Length 0 -Post Debridement Size (cm) - Width 0 -Post Debridement Size (cm) - Depth 0 -Total Square Cm 0 -Wound/Ulcer Outcome Healed- Epithelialized #3 left breast incision -Time 14:05 -Correct Patient Yes -Correct Side, Site, Position Yes -Correct Procedure Yes -Procedure Performed Yes -Type of Procedure Debridement -Clinical Debridement Subcutaneous -Post Debridement Size (cm) - Length 2.5 -Post Debridement Size (cm) - Width 4.5 -Post Debridement Size (cm) - Depth 2.0 -Total Square Cm 11.25 -Wound/Ulcer Outcome Not Healed -Ulcer Cleansing Rinsed/ Irrigated with Saline -Foul Odor after Cleansing No -Bioengineered Tissue No -Bleeding Controlled with Pressure -Offloading No -Treatment Response Procedure Tolerated Well #2 right breast -Time 14:05 -Correct Patient Yes -Correct Side, Site, Position Yes -Correct Procedure Yes -Procedure Performed Yes -Type of Procedure Debridement -Clinical Debridement Subcutaneous -Post Debridement Size (cm) - Length 3.5 -Post Debridement Size (cm) - Width 8.8 -Post Debridement Size (cm) - Depth 0.1 -Total Square Cm 30.80 -Wound/Ulcer Outcome Not Healed -Ulcer Cleansing Rinsed/ Irrigated with Saline -Foul Odor after Cleansing No -Bioengineered Tissue Yes -Type of bioengineered Tissue THERASKIN -Expiration Date 07/22/23 -Product Lot Number [id number] -Percent Used 100 -Saline Lot Number [id number] -Bleeding Controlled with Pressure -Offloading No -Treatment Response Procedure Tolerated Well [See Physician Procedure note for Specifics] Pain Scale: 0-10 Numeric [Pain] -Is Patient Pain Free? Yes Musculoskeletal: No Tenderness to Palpation of Joints or Extremities Neurological: Neuro grossly intact Psych/Mental Status: Normal Affect, Appropriate Debridement Note Post-Debridement Measurements/Treatment WC - Nurse 2 - General Ulcer CM Notes Start: 09/16/19 11:41 Freq: Status: Active Protocol: Activity Type Activity Date Activity User E-Sign Co-Sign Detail Recorded Client Recorded Date Recorded By Document 09/16/19 12:11 JF [id number] 09/16/19 12:19 JF Document 09/23/19 13:46 JF [id number] 09/23/19 14:01 JF Document 09/30/19 14:22 DL [id number] 09/30/19 14:25 DL Document 10/07/19 14:04 [id number] 10/07/19 14:06 09/16/19 09/23/19 09/30/19 12:11 13:46 14:22 Wound Center Nurse 2 5-left side left breast -Time 12:18 -Correct Patient Yes No -Correct Side, Site, Position Yes No -Correct Procedure Yes No -Procedure Performed Yes No -Type of Procedure Debridement -Clinical Debridement Subcutaneous -Post Debridement Size (cm) - Length 0.7 0 -Post Debridement Size (cm) - Width 1.5 0 -Post Debridement Size (cm) - Depth 0.1 0 -Total Square Cm 1.05 0 -Wound/Ulcer Outcome Not Healed Healed- Epithelialized -Ulcer Cleansing Rinsed/ Irrigated with Saline -Foul Odor after Cleansing No -Bioengineered Tissue No -Bleeding Controlled with Pressure -Offloading No -Treatment Response Procedure Tolerated Well #4- R AREOLA -Time 13:52 -Correct Patient No Yes No -Correct Side, Site, Position No Yes No -Correct Procedure No Yes No -Procedure Performed No Yes No -Type of Procedure Debridement -Clinical Debridement Subcutaneous -Post Debridement Size (cm) - Length 0.5 -Post Debridement Size (cm) - Width 0.5 -Post Debridement Size (cm) - Depth 0.1 -Total Square Cm 0.25 -Wound/Ulcer Outcome Not Healed Not Healed Not Healed -Ulcer Cleansing Rinsed/ Irrigated with Saline -Foul Odor after Cleansing No -Bioengineered Tissue No -Bleeding Controlled with Pressure -Offloading No -Treatment Response Procedure Tolerated Well #3 left breast incision -Time 12:11 14:01 14:23 -Correct Patient Yes Yes Yes -Correct Side, Site, Position Yes Yes Yes -Correct Procedure Yes Yes Yes -Procedure Performed Yes Yes Yes -Type of Procedure Debridement Debridement Debridement -Clinical Debridement Subcutaneous Subcutaneous Subcutaneous -Post Debridement Size (cm) - Length 3.0 3.7 3 -Post Debridement Size (cm) - Width 5.8 6.0 5.8 -Post Debridement Size (cm) - Depth 2.5 2.5 2.4 -Total Square Cm 17.40 22.20 17.4 -Wound/Ulcer Outcome Not Healed Not Healed Not Healed -Ulcer Cleansing Rinsed/ Rinsed/ Rinsed/ Irrigated with Irrigated with Irrigated with Saline Saline Saline -Foul Odor after Cleansing No No No -Bioengineered Tissue No No No -Bleeding Controlled with Pressure Pressure Pressure -Offloading No No No -Treatment Response Procedure Procedure Procedure Tolerated Well Tolerated Well Tolerated Well #2 right breast -Time 13:52 -Correct Patient No Yes No -Correct Side, Site, Position No Yes No -Correct Procedure No Yes No -Procedure Performed No Yes No -Type of Procedure Debridement -Clinical Debridement Subcutaneous -Post Debridement Size (cm) - Length 3.5 -Post Debridement Size (cm) - Width 6.5 -Post Debridement Size (cm) - Depth 0.3 -Total Square Cm 22.75 -Wound/Ulcer Outcome Not Healed Not Healed Not Healed -Ulcer Cleansing Rinsed/ Irrigated with Saline -Foul Odor after Cleansing No -Bioengineered Tissue Yes -Type of bioengineered Tissue THERASKIN -Expiration Date 08/28/22 -Product Lot Number [id number] -Percent Used 100 -Saline Lot Number [id number] -Bleeding Controlled with Pressure -Offloading No -Treatment Response Procedure Tolerated Well Pain Scale: 0-10 Numeric Is Patient Pain Free? Yes Yes Yes 10/07/19 14:04 Wound Center Nurse 2 5-left side left breast -Time -Correct Patient -Correct Side, Site, Position -Correct Procedure -Procedure Performed -Type of Procedure -Clinical Debridement -Post Debridement Size (cm) - Length -Post Debridement Size (cm) - Width -Post Debridement Size (cm) - Depth -Total Square Cm -Wound/Ulcer Outcome -Ulcer Cleansing -Foul Odor after Cleansing -Bioengineered Tissue -Bleeding Controlled with -Offloading -Treatment Response #4- R AREOLA -Time -Correct Patient No -Correct Side, Site, Position No -Correct Procedure No -Procedure Performed No -Type of Procedure -Clinical Debridement -Post Debridement Size (cm) - Length 0 -Post Debridement Size (cm) - Width 0 -Post Debridement Size (cm) - Depth 0 -Total Square Cm 0 -Wound/Ulcer Outcome Healed- Epithelialized -Ulcer Cleansing -Foul Odor after Cleansing -Bioengineered Tissue -Bleeding Controlled with -Offloading -Treatment Response #3 left breast incision -Time 14:05 -Correct Patient Yes -Correct Side, Site, Position Yes -Correct Procedure Yes -Procedure Performed Yes -Type of Procedure Debridement -Clinical Debridement Subcutaneous -Post Debridement Size (cm) - Length 2.5 -Post Debridement Size (cm) - Width 4.5 -Post Debridement Size (cm) - Depth 2.0 -Total Square Cm 11.25 -Wound/Ulcer Outcome Not Healed -Ulcer Cleansing Rinsed/ Irrigated with Saline -Foul Odor after Cleansing No -Bioengineered Tissue No -Bleeding Controlled with Pressure -Offloading No -Treatment Response Procedure Tolerated Well #2 right breast -Time 14:05 -Correct Patient Yes -Correct Side, Site, Position Yes -Correct Procedure Yes -Procedure Performed Yes -Type of Procedure Debridement -Clinical Debridement Subcutaneous -Post Debridement Size (cm) - Length 3.5 -Post Debridement Size (cm) - Width 8.8 -Post Debridement Size (cm) - Depth 0.1 -Total Square Cm 30.80 -Wound/Ulcer Outcome Not Healed -Ulcer Cleansing Rinsed/ Irrigated with Saline -Foul Odor after Cleansing No -Bioengineered Tissue Yes -Type of bioengineered Tissue THERASKIN -Expiration Date 07/22/23 -Product Lot Number [id number] -Percent Used 100 -Saline Lot Number [id number] -Bleeding Controlled with Pressure -Offloading No -Treatment Response Procedure Tolerated Well Pain Scale: 0-10 Numeric Is Patient Pain Free? Yes Wound debrided: tzone Laterality: Right Type of Debridement: Excisional debridement Anesthesia Used: 5% Lidocaine Gel Depth: Down to and including healthy tissue, in the subcutaneous layer Percentage of wound debrided: 100 Instrument Used: 5mm curette Tissue Removed: subcutaneous tissue and slough Severity: Fat Layer Exposed Amount of bleeding with debridement: Mild Bleeding Controlled with: Pressure Patient tolerated procedure well - Additional Wound Wound debrided: breast Laterality: Left Type of Debridement: Excisional debridement Anesthesia Used: 5% Lidocaine Gel Depth: Down to and including healthy tissue, in the subcutaneous layer Percentage of wound debrided: 100 Instrument Used: 5mm curette Tissue Removed: subcutaneous tissue and slough Severity: Fat Layer Exposed Amount of bleeding with debridement: Mild Bleeding Controlled with: Pressure Patient tolerated procedure: Patient tolerated procedure well Assessment/Plan Assessment: 1. Nonhealing ulcers bilateral breasts at [facility]. 2. Ulcer right nipple areola, healed. 3. Bilateral macromastia. 4. s/p bilateral breast reduction mammaplasty. 5. Smoker. 6. Diabetes mellitus. 7. Increased Creatinine, probably medication related from antibiotics, resolved after stopping the Ceftriaxone. Plan: The right nipple ulcer is healed. Thera-skin #3 on the right breast at [facility] placed today. 100% of product used. Covered with wound veil. Continue Dakin's to the left breast at [facility]. A wound culture from 07/22/19 was sent from the left breast and showed MRSE and Corynebacterium amycolatum. Wound culture from her recent hospitalization on 07/08/19 was postive for Proteus mirabilis, Enterococcus faecalis and MRSE. She was on Ceftriaxone IV along with Augmentin and Doxycycline PO. She stopped the Ceftriaxone because of increased Creatinine at 1.32 which improved to normal at 0.98 after stopping the antibiotic. She has finished the Augmentin and the Doxycycline. Prealbumin from 06/22/19 was 17.8. Encouraged nutritional supplementation with protein to help the healing process. She continues to have increased pain. Will try to contact her pain management this week after the holiday to see how to better control her pain. Follow up one week. Encouraged patient to stop smoking as it may have deleterious effects on wound healing. With the improvement in the healing of the ulcers, may consider a skin substitute. Code Visit 150xxx-152xx: 50591 Skin sub graft trnk/arm/leg Add On Codes: 31111 Skin sub graft t/a/l add-on
[2019-10-14 13:29] VITALS: BP 158/79; PULSE 71; RESP 16; TEMP 36.6; BMI 30.9
--- NOTE | 2019-10-14 13:41 | WC ---
theraskin left intact to right breast
--- NOTE | 2019-10-14 16:18 | PN.PCM_ITS ---
(1) Wound of right breast Status: Chronic Code(s): S21.001A - Unspecified open wound of right breast, initial encounter (2) Wound of left breast Status: Chronic Code(s): S21.002A - Unspecified open wound of left breast, initial encounter (3) Smoker Status: Chronic Code(s): F17.200 - Nicotine dependence, unspecified, uncomplicated (4) Type 2 diabetes mellitus Status: Chronic Code(s): E11.9 - Type 2 diabetes mellitus without complications Type of Wound Date of Service: 10/14/19 Chief Complaint: Nonhealing ulcers bilateral breasts at Tzone and right areola. History of Wound: Surgery 06/21/19 - Bilateral breast reduction mammaplasty. She was recently admitted to hospital on 07/05/19 with elevated WBC and comprosed wound healing. On 07/08/19 the right breast eschar was debrided in the hospital to make wound care easier and to drain infection. Wound VAC was started along with PICC line placement and Ceftriaxone IV antibiotics. Wound culture from 07/08/19 was positive for Proteus mirabilis, Enterococcus faecalis and MRSE. Augmentin and Doxycycline were added and she has finished them. On 07/22/19, there was wound breakdown on the left breast at the Tzone. Debridement was done and a wound culture showed MRSE and Corynebacterium amycolatum. During her IV antibiotics, the Creatinine increased to 1.32 on 08/12/19. The Ceftriaxone was stopped. The following week on 08/18/19 the Creatinine improved to normal at 0.98. Wound care - Theraskin #3 applied to right breast at [facility] last week. Will leave on for another week. Right nipple is healed. Dakin's to the left breast at [facility]. Patient would benefit from having a SNAP VAC to the left Tzone wound to help decrease the depth of the wound. Today she denies fever. She states her appetite is ok. Progress of Wound: The bilateral Tzone ulcers are improved. Thera-skin #3 has been applied to the right breast at the [facility]. - Physical Exam Vital Signs Temp Pulse Resp BP 98 F 71 16 158/79 H 10/14/19 13:29 10/14/19 13:29 10/14/19 13:29 10/14/19 13:29 General: Alert, Oriented x3, Cooperative HEENT: Atraumatic Oral: Moist Mucosa Neck: Supple Lungs: Normal air movement Cardiovascular: Regular rate Abdomen: Soft Extremities: Capillary Refill Less than 3 Seconds Skin: Ulcer/ Wound - Right and left tzone opened areas. Right has theraskin in place Wound Measurements and Assessment WC - Nurse 1 - General Ulcer Measurement Start: 09/16/19 11:41 Freq: Status: Active Protocol: Activity Type Activity Date Activity User E-Sign Co-Sign Detail Recorded Client Recorded Date Recorded By Document 10/14/19 13:29 [facility] [id number] 10/14/19 13:41 [facility] 10/14/19 13:29 Wound Center Nurse 1 [Ulcer Assessment] #3 left breast incision -Combined with other wound No -Current Size (cm) - Length 2.8 -Current Size (cm) - Width 3.4 -Current Size (cm) - Depth 1.7 -Total Square Cm 9.52 -Photo Taken No -Epithelialization Small 1-33% -Tunneling No -Undermining/Tunneling Yes -Undermining/Tunneling Starts (O' 9 clock) -Undermining/Tunneling Ends (O'clock) 11 -Maximum Distance (cm) 1.6 -Circular Undermining No -Exudate Amt Medium -Exudate Type Serosanguineous -Wound Margin Distinct, Outline Attached -Granulation Amt Large (67-100%) -Granulation Quality Red -Slough/Fibrin No -Necrosis Amt None Present (0 %) -Texture (Flavia-wound Skin Appearance) Assessed, Scarring -Moisture (Flavia-wound Skin Appearance Assessed ) -Color (Flavia-wound Skin Appearance) Assessed -Temperature (Flavia-wound Skin No Abnormality Appearance) (Pt Warm) -Tenderness on Palpation (Flavia-wound Yes Skin Appearance) -Ulcer Cleansing Rinsed/ Irrigated with Saline -Foul Odor after Cleansing No -Anesthetic Used 4% Lidocaine Solution #2 right breast -Combined with other wound No -Current Size (cm) - Length 0.1 -Current Size (cm) - Width 0.1 -Current Size (cm) - Depth 0.1 -Total Square Cm 0.01 -Photo Taken No WC - Nurse 2 - General Ulcer CM Notes Start: 09/16/19 11:41 Freq: Status: Active Protocol: Activity Type Activity Date Activity User E-Sign Co-Sign Detail Recorded Client Recorded Date Recorded By Document 12/30/19 14:11 [id number] 10/14/19 14:18 10/14/19 14:11 Wound Center Nurse 2 [Procedure/Treatment] #3 left breast incision -Time 14:12 -Correct Patient Yes -Correct Side, Site, Position Yes -Correct Procedure Yes -Procedure Performed Yes -Type of Procedure Debridement -Clinical Debridement Subcutaneous -Post Debridement Size (cm) - Length 2 -Post Debridement Size (cm) - Width 4.2 -Post Debridement Size (cm) - Depth 2.0 -Total Square Cm 8.4 -Wound/Ulcer Outcome Not Healed -Ulcer Cleansing Rinsed/ Irrigated with Saline -Foul Odor after Cleansing No -Bioengineered Tissue No -Bleeding Controlled with Pressure -Other tunnel at 6:00- ---0.4cm -Offloading No -Treatment Response Procedure Tolerated Well #2 right breast -Correct Patient No -Correct Side, Site, Position No -Correct Procedure No -Procedure Performed No -Wound/Ulcer Outcome Not Healed [See Physician Procedure note for Specifics] Pain Scale: 0-10 Numeric [Pain] -Is Patient Pain Free? Yes Musculoskeletal: No Muscle Wasting Neurological: Neuro grossly intact Psych/Mental Status: Normal Affect, Appropriate Debridement Note Post-Debridement Measurements/Treatment WC - Nurse 2 - General Ulcer CM Notes Start: 09/16/19 11:41 Freq: Status: Active Protocol: Activity Type Activity Date Activity User E-Sign Co-Sign Detail Recorded Client Recorded Date Recorded By Document 09/16/19 12:11 [id number] 09/16/19 12:19 Document 09/23/19 13:46 [id number] 09/23/19 14:01 Document 09/30/19 14:22 [id number] 09/30/19 14:25 Document 10/07/19 14:04 [id number] 10/07/19 14:06 Document 10/14/19 14:11 [id number] 10/14/19 14:18 09/16/19 09/23/19 09/30/19 12:11 13:46 14:22 Wound Center Nurse 2 5-left side left breast -Time 12:18 -Correct Patient Yes No -Correct Side, Site, Position Yes No -Correct Procedure Yes No -Procedure Performed Yes No -Type of Procedure Debridement -Clinical Debridement Subcutaneous -Post Debridement Size (cm) - Length 0.7 0 -Post Debridement Size (cm) - Width 1.5 0 -Post Debridement Size (cm) - Depth 0.1 0 -Total Square Cm 1.05 0 -Wound/Ulcer Outcome Not Healed Healed- Epithelialized -Ulcer Cleansing Rinsed/ Irrigated with Saline -Foul Odor after Cleansing No -Bioengineered Tissue No -Bleeding Controlled with Pressure -Offloading No -Treatment Response Procedure Tolerated Well #4- R AREOLA -Time 13:52 -Correct Patient No Yes No -Correct Side, Site, Position No Yes No -Correct Procedure No Yes No -Procedure Performed No Yes No -Type of Procedure Debridement -Clinical Debridement Subcutaneous -Post Debridement Size (cm) - Length 0.5 -Post Debridement Size (cm) - Width 0.5 -Post Debridement Size (cm) - Depth 0.1 -Total Square Cm 0.25 -Wound/Ulcer Outcome Not Healed Not Healed Not Healed -Ulcer Cleansing Rinsed/ Irrigated with Saline -Foul Odor after Cleansing No -Bioengineered Tissue No -Bleeding Controlled with Pressure -Offloading No -Treatment Response Procedure Tolerated Well #3 left breast incision -Time 12:11 14:01 14:23 -Correct Patient Yes Yes Yes -Correct Side, Site, Position Yes Yes Yes -Correct Procedure Yes Yes Yes -Procedure Performed Yes Yes Yes -Type of Procedure Debridement Debridement Debridement -Clinical Debridement Subcutaneous Subcutaneous Subcutaneous -Post Debridement Size (cm) - Length 3.0 3.7 3 -Post Debridement Size (cm) - Width 5.8 6.0 5.8 -Post Debridement Size (cm) - Depth 2.5 2.5 2.4 -Total Square Cm 17.40 22.20 17.4 -Wound/Ulcer Outcome Not Healed Not Healed Not Healed -Ulcer Cleansing Rinsed/ Rinsed/ Rinsed/ Irrigated with Irrigated with Irrigated with Saline Saline Saline -Foul Odor after Cleansing No No No -Bioengineered Tissue No No No -Bleeding Controlled with Pressure Pressure Pressure -Other -Offloading No No No -Treatment Response Procedure Procedure Procedure Tolerated Well Tolerated Well Tolerated Well #2 right breast -Time 13:52 -Correct Patient No Yes No -Correct Side, Site, Position No Yes No -Correct Procedure No Yes No -Procedure Performed No Yes No -Type of Procedure Debridement -Clinical Debridement Subcutaneous -Post Debridement Size (cm) - Length 3.5 -Post Debridement Size (cm) - Width 6.5 -Post Debridement Size (cm) - Depth 0.3 -Total Square Cm 22.75 -Wound/Ulcer Outcome Not Healed Not Healed Not Healed -Ulcer Cleansing Rinsed/ Irrigated with Saline -Foul Odor after Cleansing No -Bioengineered Tissue Yes -Type of bioengineered Tissue THERASKIN -Expiration Date 08/28/22 -Product Lot Number [id number] -Percent Used 100 -Saline Lot Number [id number] -Bleeding Controlled with Pressure -Offloading No -Treatment Response Procedure Tolerated Well Pain Scale: 0-10 Numeric Is Patient Pain Free? Yes Yes Yes 10/07/19 10/14/19 14:04 14:11 Wound Center Nurse 2 5-left side left breast -Time -Correct Patient -Correct Side, Site, Position -Correct Procedure -Procedure Performed -Type of Procedure -Clinical Debridement -Post Debridement Size (cm) - Length -Post Debridement Size (cm) - Width -Post Debridement Size (cm) - Depth -Total Square Cm -Wound/Ulcer Outcome -Ulcer Cleansing -Foul Odor after Cleansing -Bioengineered Tissue -Bleeding Controlled with -Offloading -Treatment Response #4- R AREOLA -Time -Correct Patient No -Correct Side, Site, Position No -Correct Procedure No -Procedure Performed No -Type of Procedure -Clinical Debridement -Post Debridement Size (cm) - Length 0 -Post Debridement Size (cm) - Width 0 -Post Debridement Size (cm) - Depth 0 -Total Square Cm 0 -Wound/Ulcer Outcome Healed- Epithelialized -Ulcer Cleansing -Foul Odor after Cleansing -Bioengineered Tissue -Bleeding Controlled with -Offloading -Treatment Response #3 left breast incision -Time 14:05 14:12 -Correct Patient Yes Yes -Correct Side, Site, Position Yes Yes -Correct Procedure Yes Yes -Procedure Performed Yes Yes -Type of Procedure Debridement Debridement -Clinical Debridement Subcutaneous Subcutaneous -Post Debridement Size (cm) - Length 2.5 2 -Post Debridement Size (cm) - Width 4.5 4.2 -Post Debridement Size (cm) - Depth 2.0 2.0 -Total Square Cm 11.25 8.4 -Wound/Ulcer Outcome Not Healed Not Healed -Ulcer Cleansing Rinsed/ Rinsed/ Irrigated with Irrigated with Saline Saline -Foul Odor after Cleansing No No -Bioengineered Tissue No No -Bleeding Controlled with Pressure Pressure -Other tunnel at 6:00- ---0.4cm -Offloading No No -Treatment Response Procedure Procedure Tolerated Well Tolerated Well #2 right breast -Time 14:05 -Correct Patient Yes No -Correct Side, Site, Position Yes No -Correct Procedure Yes No -Procedure Performed Yes No -Type of Procedure Debridement -Clinical Debridement Subcutaneous -Post Debridement Size (cm) - Length 3.5 -Post Debridement Size (cm) - Width 8.8 -Post Debridement Size (cm) - Depth 0.1 -Total Square Cm 30.80 -Wound/Ulcer Outcome Not Healed Not Healed -Ulcer Cleansing Rinsed/ Irrigated with Saline -Foul Odor after Cleansing No -Bioengineered Tissue Yes -Type of bioengineered Tissue THERASKIN -Expiration Date 07/22/23 -Product Lot Number [id number] -Percent Used 100 -Saline Lot Number [id number] -Bleeding Controlled with Pressure -Offloading No -Treatment Response Procedure Tolerated Well Pain Scale: 0-10 Numeric Is Patient Pain Free? Yes Yes Wound debrided: left breast [facility] Laterality: Left Type of Debridement: Excisional debridement Anesthesia Used: 5% Lidocaine Gel Depth: Down to and including healthy tissue, in the subcutaneous layer Percentage of wound debrided: 100 Instrument Used: 5mm curette Tissue Removed: subcutaneous tissue and slough Severity: Fat Layer Exposed Amount of bleeding with debridement: Mild Bleeding Controlled with: Pressure Patient tolerated procedure well Assessment/Plan Assessment: 1. Nonhealing ulcers bilateral breasts at [facility]. 2. Ulcer right nipple areola, healed. 3. Bilateral macromastia. 4. s/p bilateral breast reduction mammaplasty. 5. Smoker. 6. Diabetes mellitus. 7. Increased Creatinine, probably medication related from antibiotics, resolved after stopping the Ceftriaxone. Plan: The right nipple ulcer is healed. Thera-skin #3 on the right breast at [facility] was placed last week. Will leave on for another week. Continue Dakin's to the left breast at [facility]. With the depth of her left breast wound, she would benefit from having SNAP VAC to help decrease the depth of that left breast wound. I believe she would tolerate the SNAP vac well. A wound culture from 07/22/19 was sent from the left breast and showed MRSE and Corynebacterium amycolatum. Wound culture from her recent hospitalization on 07/08/19 was postive for Proteus mirabilis, Enterococcus faecalis and MRSE. She was on Ceftriaxone IV along with Augmentin and Doxycycline PO. She stopped the Ceftriaxone because of increased Creatinine at 1.32 which improved to normal at 0.98 after stopping the antibiotic. She has finished the Augmentin and the Doxycycline. Prealbumin from 06/22/19 was 17.8. Encouraged nutritional supplementation with protein to help the healing process. She continues to have increased pain. Contacted her pain management last Monday and they are ok with us prescribing her pain medication since it is for her breasts as long as she is not using her patch they prescribed, which she is not. She has been taking her Doxycycline for her positive wound culture from 10/07/19 which was positive for MRSA and Corynebacterium striatum from her right breast tzone wound. Renewed her percocet last week after checking an [facility] report. She is having issue with vaginal yeast which is an major issue with her when she is on antibiotics, will prescribe her diflucan. Follow up one week. Encouraged patient to stop smoking as it may have deleterious effects on wound healing. With the improvement in the healing of the ulcers, may consider a skin substitute. Code Visit [id number]: [id number] Maricruz subq tissue 20 sq cm/<
== END 2019-10-15 23:59 ==
LOC: WC 13:00
PROVIDERS: Family Provider Family Medicine; PCP Family Medicine; Referring Provider Nurse Practitioner Family; Visit Provider Nurse Practitioner Family
DX: T81.31XA Disruption of external operation (surgical) wound, not elsewhere classified, initial encounter (principal); Y83.8 Other surgical procedures as the cause of abnormal reaction of the patient, or of later complication, without mention of misadventure at the time of the procedure; N62 Hypertrophy of breast; E11.9 Type 2 diabetes mellitus without complications; T81.89XA Other complications of procedures, not elsewhere classified, initial encounter; F17.200 Nicotine dependence, unspecified, uncomplicated
CPT/HCPCS: 11042; 15271; 15272; 87070; 87075; 87077; 87186; 87205; Q4121

== ENCOUNTER 2019-11-15 14:30 | Outpatient (RCR) | payer MEDICARE, MEDICAID, SELFPAY ==
[2019-10-16 00:41] VITALS: BP 158/79; PULSE 71; RESP 16; TEMP 36.6
[2019-10-21 13:15] VITALS: BP 177/77; PULSE 94; RESP 18; TEMP 36.7; BMI 30.9
--- NOTE | 2019-10-21 15:54 | PN.PCM_ITS ---
(1) Wound of right breast Status: Chronic Current Visit: Yes Code(s): S21.001A - Unspecified open wound of right breast, initial encounter (2) Wound of left breast Status: Chronic Current Visit: Yes Code(s): S21.002A - Unspecified open wound of left breast, initial encounter (3) Type 2 diabetes mellitus Status: Chronic Current Visit: Yes Code(s): E11.9 - Type 2 diabetes mellitus without complications (4) Smoker Status: Chronic Current Visit: Yes Code(s): F17.200 - Nicotine dependence, unspecified, uncomplicated Type of Wound Date of Service: 10/21/19 Chief Complaint: Nonhealing ulcers bilateral breasts at Tzone and right areola. History of Wound: Surgery 06/21/19 - Bilateral breast reduction mammaplasty. She was recently admitted to hospital on 07/05/19 with elevated WBC and comprosed wound healing. On 07/08/19 the right breast eschar was debrided in the hospital to make wound care easier and to drain infection. Wound VAC was started along with PICC line placement and Ceftriaxone IV antibiotics. Wound culture from 07/08/19 was positive for Proteus mirabilis, Enterococcus faecalis and MRSE. Augmentin and Doxycycline were added and she has finished them. On 07/22/19, there was wound breakdown on the left breast at the Tzone. Debridement was done and a wound culture showed MRSE and Corynebacterium amycolatum. During her IV antibiotics, the Creatinine increased to 1.32 on 08/12/19. The Ceftriaxone was stopped. The following week on 08/18/19 the Creatinine improved to normal at 0.98. Wound care - Theraskin #4 applied to right breast at Tzone this week with wound veil. 100% of the product was usedd. Will SNAP VAC to the left Tzone area to help decrease the depth. Will have her come back in for a nurses visit at the end of the week for a SNAP VAC change. Today she denies fever. She states her appetite is ok. Progress of Wound: The bilateral Tzone areas are improved. Thera-skin #4 has been applied to the right breast at the Tzone. Will apply SNAP VAC to the left breast - Physical Exam Vital Signs Temp Pulse Resp BP 98.1 F 94 18 177/77 H 10/21/19 13:15 10/21/19 13:15 10/21/19 13:15 10/21/19 13:15 General: Alert, Oriented x3, Cooperative HEENT: Atraumatic Oral: Moist Mucosa Lungs: Normal air movement Cardiovascular: Regular rate Abdomen: Soft Extremities: Capillary Refill Less than 3 Seconds Skin: Ulcer/ Wound - bilateral breast tzone areas. Right tzone healing well with a cluster of three opened areas. Wound Measurements and Assessment WC - Nurse 1 - General Ulcer Measurement Start: 10/21/19 13:15 Freq: Status: Active Protocol: Activity Type Activity Date Activity User E-Sign Co-Sign Detail Recorded Client Recorded Date Recorded By Document 10/21/19 13:15 MW [id number] 10/21/19 13:30 MW 10/21/19 13:15 Wound Center Nurse 1 [Ulcer Assessment] #3 left breast incision -Combined with other wound No -Current Size (cm) - Length 2.4 -Current Size (cm) - Width 3.5 -Current Size (cm) - Depth 0.5 -Total Square Cm 8.40 -Photo Taken No -Epithelialization None Present -Tunneling No -Undermining/Tunneling No -Circular Undermining No -Exudate Amt Small -Exudate Type Serosanguineous -Wound Margin Distinct, Outline Attached -Granulation Amt Large (67-100%) -Granulation Quality Red -Slough/Fibrin Yes -Necrosis Amt Small (1-33%) -Necrotic Tissue Type Adherent Slough -Structure Exposed N/A -Texture (Flavia-wound Skin Appearance) Assessed, Scarring -Moisture (Flavia-wound Skin Appearance No Abnormality, ) Assessed -Color (Flavia-wound Skin Appearance) No Abnormality, Assessed -Temperature (Flavia-wound Skin No Abnormality Appearance) (Pt Warm) -Tenderness on Palpation (Flavia-wound Yes Skin Appearance) -Ulcer Cleansing soap and water -Foul Odor after Cleansing Yes -Anesthetic Used 4% Lidocaine Solution #2 right breast -Combined with other wound No -Current Size (cm) - Length 0.1 -Current Size (cm) - Width 0.1 -Current Size (cm) - Depth 0.1 -Total Square Cm 0.01 -Photo Taken No -Epithelialization None Present -Tunneling No -Undermining/Tunneling No -Circular Undermining No -Exudate Amt None Present -Wound Margin Indistinct, Non -Visible -Granulation Amt None Present (0 %) -Granulation Quality N/A -Slough/Fibrin Yes -Necrosis Amt Large (67-100%) -Necrotic Tissue Type Adherent Slough -Structure Exposed N/A -Texture (Flavia-wound Skin Appearance) Assessed, Scarring -Moisture (Flavia-wound Skin Appearance Assessed,Dry/ ) Scaly -Color (Flavia-wound Skin Appearance) No Abnormality, Assessed -Temperature (Flavia-wound Skin No Abnormality Appearance) (Pt Warm) -Tenderness on Palpation (Flavia-wound No Skin Appearance) -Ulcer Cleansing soap and water -Foul Odor after Cleansing No -Anesthetic Used 5% Lidocaine Gel [Edema Assessment] -Lower Limb Edema Present No WC - Nurse 2 - General Ulcer CM Notes Start: 10/21/19 13:15 Freq: Status: Active Protocol: Activity Type Activity Date Activity User E-Sign Co-Sign Detail Recorded Client Recorded Date Recorded By Document 10/21/19 14:03 [id number] 10/21/19 14:12 10/21/19 14:03 Wound Center Nurse 2 [Procedure/Treatment] #4- R AREOLA -Time 14:03 -Correct Patient Yes -Correct Side, Site, Position Yes -Correct Procedure No -Procedure Performed No -Post Debridement Size (cm) - Length 0 -Post Debridement Size (cm) - Width 0 -Post Debridement Size (cm) - Depth 0 -Total Square Cm 0 -Wound/Ulcer Outcome Healed- Epithelialized -Foul Odor after Cleansing No -Type of bioengineered Tissue THERASKIN -Expiration Date 08/05/22 -Product Lot Number [id number] -Percent Used 100 -Offloading No #2 right breast -Time 14:07 -Correct Patient Yes -Correct Side, Site, Position Yes -Correct Procedure Yes -Procedure Performed Yes -Type of Procedure Debridement -Clinical Debridement Subcutaneous -Post Debridement Size (cm) - Length 7.5 -Post Debridement Size (cm) - Width 2.8 -Post Debridement Size (cm) - Depth 0.2 -Total Square Cm 21.00 -Wound/Ulcer Outcome Not Healed -Ulcer Cleansing Rinsed/ Irrigated with Saline -Foul Odor after Cleansing No -Bioengineered Tissue No -Expiration Date 08/05/22 -Product Lot Number [id number] -Percent Used 100 -Bleeding Controlled with Pressure -Offloading No -Treatment Response Procedure Tolerated Well [See Physician Procedure note for Specifics] Pain Scale: 0-10 Numeric [Pain] -Is Patient Pain Free? Yes Musculoskeletal: No Muscle Wasting Neurological: Neuro grossly intact Psych/Mental Status: Normal Affect, Appropriate Debridement Note Post-Debridement Measurements/Treatment WC - Nurse 2 - General Ulcer CM Notes Start: 10/21/19 13:15 Freq: Status: Active Protocol: Activity Type Activity Date Activity User E-Sign Co-Sign Detail Recorded Client Recorded Date Recorded By Document 10/21/19 14:03 [id number] 10/21/19 14:12 [email or web address] 10/21/19 14:03 Wound Center Nurse 2 #4- R AREOLA -Time 14:03 -Correct Patient Yes -Correct Side, Site, Position Yes -Correct Procedure No -Procedure Performed No -Post Debridement Size (cm) - Length 0 -Post Debridement Size (cm) - Width 0 -Post Debridement Size (cm) - Depth 0 -Total Square Cm 0 -Wound/Ulcer Outcome Healed- Epithelialized -Foul Odor after Cleansing No -Type of bioengineered Tissue THERASKIN -Expiration Date 08/05/22 -Product Lot Number [id number] -Percent Used 100 -Offloading No #2 right breast -Time 14:07 -Correct Patient Yes -Correct Side, Site, Position Yes -Correct Procedure Yes -Procedure Performed Yes -Type of Procedure Debridement -Clinical Debridement Subcutaneous -Post Debridement Size (cm) - Length 7.5 -Post Debridement Size (cm) - Width 2.8 -Post Debridement Size (cm) - Depth 0.2 -Total Square Cm 21.00 -Wound/Ulcer Outcome Not Healed -Ulcer Cleansing Rinsed/ Irrigated with Saline -Foul Odor after Cleansing No -Bioengineered Tissue No -Expiration Date 08/05/22 -Product Lot Number [id number] -Percent Used 100 -Bleeding Controlled with Pressure -Offloading No -Treatment Response Procedure Tolerated Well Pain Scale: 0-10 Numeric Is Patient Pain Free? Yes Wound debrided: breast tzone- cluster of three opened areas Laterality: Right Type of Debridement: Excisional debridement Anesthesia Used: 5% Lidocaine Gel Depth: Down to and including healthy tissue, in the subcutaneous layer Percentage of wound debrided: 100 Instrument Used: 5mm curette Tissue Removed: subcutaneous tissue and slough Severity: Limited To Skin Breakdown Amount of bleeding with debridement: Mild Bleeding Controlled with: Pressure - Additional Wound Wound debrided: tzone area Laterality: Left Type of Debridement: Excisional debridement Anesthesia Used: 5% Lidocaine Gel Depth: Down to and including healthy tissue, in the subcutaneous layer Percentage of wound debrided: 100 Instrument Used: 5mm curette Tissue Removed: subcutaneous tissue and slough Severity: Fat Layer Exposed Amount of bleeding with debridement: Mild Bleeding Controlled with: Pressure Patient tolerated procedure: Patient tolerated procedure well Assessment/Plan Active Problems (Last Reviewed 06/24/19 @ 16:39 by Deedee Newton) Wound of right breast (Chronic) Wound of left breast (Chronic) Type 2 diabetes mellitus (Chronic) Smoker (Chronic) Assessment: 1. Nonhealing ulcers bilateral breasts at [facility]. 2. Ulcer right nipple areola, healed. 3. Bilateral macromastia. 4. s/p bilateral breast reduction mammaplasty. 5. Smoker. 6. Diabetes mellitus. 7. Increased Creatinine, probably medication related from antibiotics, resolved after stopping the Ceftriaxone. Plan: The right nipple ulcer is healed. Thera-skin #4 on the right breast at [facility] was placed this week, using 100% of the product. Covered with a wound veil. Stop Dakin's to the left breast at [facility]. and start SNAP VAC to help decrease the depth of that left breast wound. She will return at the end of the week to have the SNAP VAC replaced. A wound culture from 07/22/19 was sent from the left breast and showed MRSE and Corynebacterium amycolatum. Wound culture from her recent hospitalization on 07/08/19 was postive for Proteus mirabilis, Enterococcus faecalis and MRSE. She was on Ceftriaxone IV along with Augmentin and Doxycycline PO. She stopped the Ceftriaxone because of increased Creatinine at 1.32 which improved to normal at 0.98 after stopping the antibiotic. She has finished the Augmentin and the Doxycycline. Prealbumin from 06/22/19 was 17.8. Encouraged nutritional supplementation with protein to help the healing process. She continues to have increased pain. Contacted her pain management last week and they are ok with us prescribing her pain medication since it is for her breasts as long as she is not using her patch they prescribed, which she is not. She has been taking her Doxycycline for her positive wound culture from 10/07/19 which was positive for MRSA and Corynebacterium striatum from her right breast tzone wound. She was having issue with vaginal yeast which is an major issue with her when she is on antibiotics, prescribed her diflucan. Follow up one week. Encouraged patient to stop smoking as it may have deleterious effects on wound healing. Code Visit 01185 left breast debridement [id number]: [id number] Skin sub graft trnk/arm/leg - right breast
[2019-10-25 09:35] VITALS: BP 144/91; PULSE 86; RESP 16; TEMP 36.9; BMI 30.9
[2019-10-28 08:46] VITALS: BP 134/85; PULSE 91; RESP 18; BMI 30.9
--- NOTE | 2019-10-28 15:13 | PCM.WC.PN ---
(1) Wound of right breast Status: Chronic Current Visit: Yes Code(s): S21.001A - Unspecified open wound of right breast, initial encounter (2) Wound of left breast Status: Chronic Current Visit: Yes Code(s): S21.002A - Unspecified open wound of left breast, initial encounter (3) Type 2 diabetes mellitus Status: Chronic Current Visit: Yes Code(s): E11.9 - Type 2 diabetes mellitus without complications (4) Smoker Status: Chronic Current Visit: Yes Code(s): F17.200 - Nicotine dependence, unspecified, uncomplicated Type of Wound Date of Service: 10/28/19 Chief Complaint: Nonhealing ulcers bilateral breasts at Tzone and right areola. History of Wound: Surgery 06/21/19 - Bilateral breast reduction mammaplasty. She was recently admitted to hospital on 07/05/19 with elevated WBC and comprosed wound healing. On 07/08/19 the right breast eschar was debrided in the hospital to make wound care easier and to drain infection. Wound VAC was started along with PICC line placement and Ceftriaxone IV antibiotics. Wound culture from 07/08/19 was positive for Proteus mirabilis, Enterococcus faecalis and MRSE. Augmentin and Doxycycline were added and she has finished them. On 07/22/19, there was wound breakdown on the left breast at the Tzone. Debridement was done and a wound culture showed MRSE and Corynebacterium amycolatum. During her IV antibiotics, the Creatinine increased to 1.32 on 08/12/19. The Ceftriaxone was stopped. The following week on 08/18/19 the Creatinine improved to normal at 0.98. Wound care - Theraskin #4 applied to right breast at Tzone last week with wound veil. Will keep it on for another week. Will SNAP VAC to the left Tzone area to help decrease the depth. The left breast is looking beefy pink. Will have her come back in for a nurses visit at the end of the week for a SNAP VAC change. Today she denies fever. She states her appetite is ok. Progress of Wound: The bilateral Tzone areas are improved. Thera-skin #4 has been applied to the right breast at the Tzone. Will apply SNAP VAC to the left breast - Physical Exam Vital Signs Temp Pulse Resp BP 98.4 F 91 18 134/85 H 10/25/19 09:35 10/28/19 08:46 10/28/19 08:46 10/28/19 08:46 General: Alert, Oriented x3, Cooperative HEENT: Atraumatic Oral: Moist Mucosa Lungs: Normal air movement Cardiovascular: Regular rate Extremities: No edema Skin: Ulcer/ Wound - Right breast has theraskin with a wound veil. Left breast is looking beefy pink and has decreased in size with the SNAP VAC in place Wound Measurements and Assessment WC - Nurse 1 - General Ulcer Measurement Start: 10/21/19 13:15 Freq: Status: Active Protocol: Activity Type Activity Date Activity User E-Sign Co-Sign Detail Recorded Client Recorded Date Recorded By Document 10/28/19 08:46 BS [id number] 10/28/19 08:56 BS 10/28/19 08:46 Wound Center Nurse 1 [Ulcer Assessment] #3 left breast incision -Current Size (cm) - Length 1.8 -Current Size (cm) - Width 3.6 -Current Size (cm) - Depth 1.7 -Total Square Cm 6.48 -Tunneling Yes -Tunneling Position (O'clock) 8 -Tunneling Distance (cm) 1.7 -Anesthetic Used 4% Lidocaine Solution #2 right breast -Current Size (cm) - Length 0.1 -Current Size (cm) - Width 0.1 -Current Size (cm) - Depth 0.1 -Total Square Cm 0.01 - Nurse 2 - General Ulcer CM Notes Start: 10/21/19 13:15 Freq: Status: Active Protocol: Activity Type Activity Date Activity User E-Sign Co-Sign Detail Recorded Client Recorded Date Recorded By Document 10/28/19 09:12 [id number] 10/28/19 09:14 10/28/19 09:12 Wound Center Nurse 2 [Procedure/Treatment] #3 left breast incision -Time 09:12 -Correct Patient Yes -Correct Side, Site, Position Yes -Correct Procedure Yes -Procedure Performed Yes -Type of Procedure Debridement -Clinical Debridement Subcutaneous -Post Debridement Size (cm) - Length 1.8 -Post Debridement Size (cm) - Width 3.7 -Post Debridement Size (cm) - Depth 1.1 -Total Square Cm 6.66 -Wound/Ulcer Outcome Not Healed -Ulcer Cleansing Rinsed/ Irrigated with Saline -Bleeding Controlled with Pressure -Offloading No -Treatment Response Procedure Tolerated Well #2 right breast -Correct Patient No -Correct Side, Site, Position No -Correct Procedure No -Procedure Performed No -Wound/Ulcer Outcome Not Healed [See Physician Procedure note for Specifics] Pain Scale: 0-10 Numeric [Pain] -Is Patient Pain Free? Yes Musculoskeletal: No Tenderness to Palpation of Joints or Extremities Neurological: Neuro grossly intact Psych/Mental Status: Normal Affect, Appropriate Debridement Note Post-Debridement Measurements/Treatment WC - Nurse 2 - General Ulcer CM Notes Start: 10/21/19 13:15 Freq: Status: Active Protocol: Activity Type Activity Date Activity User E-Sign Co-Sign Detail Recorded Client Recorded Date Recorded By Document 10/21/19 14:03 [id number] 10/21/19 14:12 Document 10/28/19 09:12 [id number] 10/28/19 09:14 10/21/19 10/28/19 14:03 09:12 Wound Center Nurse 2 #4- R AREOLA -Time 14:03 -Correct Patient Yes -Correct Side, Site, Position Yes -Correct Procedure No -Procedure Performed No -Post Debridement Size (cm) - Length 0 -Post Debridement Size (cm) - Width 0 -Post Debridement Size (cm) - Depth 0 -Total Square Cm 0 -Wound/Ulcer Outcome Healed- Epithelialized -Foul Odor after Cleansing No -Type of bioengineered Tissue THERASKIN -Expiration Date 08/05/22 -Product Lot Number [id number] -Percent Used 100 -Offloading No #3 left breast incision -Time 09:12 -Correct Patient Yes -Correct Side, Site, Position Yes -Correct Procedure Yes -Procedure Performed Yes -Type of Procedure Debridement -Clinical Debridement Subcutaneous -Post Debridement Size (cm) - Length 1.8 -Post Debridement Size (cm) - Width 3.7 -Post Debridement Size (cm) - Depth 1.1 -Total Square Cm 6.66 -Wound/Ulcer Outcome Not Healed -Ulcer Cleansing Rinsed/ Irrigated with Saline -Bleeding Controlled with Pressure -Offloading No -Treatment Response Procedure Tolerated Well #2 right breast -Time 14:07 -Correct Patient Yes No -Correct Side, Site, Position Yes No -Correct Procedure Yes No -Procedure Performed Yes No -Type of Procedure Debridement -Clinical Debridement Subcutaneous -Post Debridement Size (cm) - Length 7.5 -Post Debridement Size (cm) - Width 2.8 -Post Debridement Size (cm) - Depth 0.2 -Total Square Cm 21.00 -Wound/Ulcer Outcome Not Healed Not Healed -Ulcer Cleansing Rinsed/ Irrigated with Saline -Foul Odor after Cleansing No -Bioengineered Tissue No -Expiration Date 08/05/22 -Product Lot Number [id number] -Percent Used 100 -Bleeding Controlled with Pressure -Offloading No -Treatment Response Procedure Tolerated Well Pain Scale: 0-10 Numeric Is Patient Pain Free? Yes Yes Wound debrided: tzone breast ulcer Laterality: Left Type of Debridement: Excisional debridement Anesthesia Used: 5% Lidocaine Gel Depth: Down to and including healthy tissue, in the subcutaneous layer Percentage of wound debrided: 100 Instrument Used: 5mm curette Tissue Removed: subcutaneous tissue and slough Severity: Fat Layer Exposed Amount of bleeding with debridement: Mild Bleeding Controlled with: Pressure Patient tolerated procedure well Assessment/Plan Active Problems (Last Reviewed 06/24/19 @ 16:39 by Deedee Newton) Wound of right breast (Chronic) Wound of left breast (Chronic) Type 2 diabetes mellitus (Chronic) Smoker (Chronic) Assessment: 1. Nonhealing ulcers bilateral breasts at [facility]. 2. Ulcer right nipple areola, healed. 3. Bilateral macromastia. 4. s/p bilateral breast reduction mammaplasty. 5. Smoker. 6. Diabetes mellitus. 7. Increased Creatinine, probably medication related from antibiotics, resolved after stopping the Ceftriaxone. Plan: The right nipple ulcer is healed. Thera-skin #4 on the right breast at [facility] was placed lastweek, using 100% of the product. Covered with a wound veil. Will leave that on for another week. Right breast SNAP VAC to help decrease the depth of that left breast wound. She will return at the end of the week to have the SNAP VAC replaced. A wound culture from 07/22/19 was sent from the left breast and showed MRSE and Corynebacterium amycolatum. Wound culture from her recent hospitalization on 07/08/19 was postive for Proteus mirabilis, Enterococcus faecalis and MRSE. She was on Ceftriaxone IV along with Augmentin and Doxycycline PO. She stopped the Ceftriaxone because of increased Creatinine at 1.32 which improved to normal at 0.98 after stopping the antibiotic. She has finished the Augmentin and the Doxycycline. Prealbumin from 06/22/19 was 17.8. Encouraged nutritional supplementation with protein to help the healing process. She continues to have increased pain. Contacted her pain management last week and they are ok with us prescribing her pain medication since it is for her breasts as long as she is not using her patch they prescribed, which she is not. She has been taking her Doxycycline for her positive wound culture from 10/07/19 which was positive for MRSA and Corynebacterium striatum from her right breast tzone wound. She was having issue with vaginal yeast which is an major issue with her when she is on antibiotics, prescribed her diflucan. Follow up one week. Encouraged patient to stop smoking as it may have deleterious effects on wound healing. Code Visit [id number]-113xx: [id number] Maricruz subq tissue 20 sq cm/<
[2019-11-01 11:40] VITALS: BP 141/79; PULSE 78; RESP 16; TEMP 36.8; BMI 30.9
[2019-11-04 14:02] VITALS: BP 145/89; PULSE 97; RESP 16; TEMP 36.9; BMI 30.9
--- NOTE | 2019-11-04 17:45 | PN.PCM_ITS ---
Type of Wound Date of Service: 11/04/19 Chief Complaint: Nonhealing ulcers bilateral breasts at [facility]. History of Wound: Surgery 06/21/19 - Bilateral breast reduction mammaplasty. She was admitted to hospital on 07/05/19 with elevated WBC and comprosed wound healing. On 07/08/19 the right breast eschar was debrided in the hospital to make wound care easier and to drain infection. Wound VAC was started along with PICC line placement and Ceftriaxone IV antibiotics. Wound culture from 07/08/19 was positive for Proteus mirabilis, Enterococcus faecalis and MRSE. Augmentin and Doxycycline were added and she has finished them. On 07/22/19, there was wound breakdown on the left breast at the [facility]. Debridement was done and a wound culture showed MRSE and Corynebacterium amycolatum. During her IV antibiotics, the Creatinine increased to 1.32 on 08/12/19. The Ceftriaxone was stopped. The following week on 08/18/19 the Creatinine improved to normal at 0.98. Repeat wound culture on 10/07/19 showed MRSA and Corynebacterium striatum. She was placed on Doxycycline. Wound care - Theraskin #4 applied to right breast at [facility]. SNAP VAC placed to the left breast at [facility]. Today she denies fever. She states her appetite is ok. Progress of Wound: The bilateral Tzone ulcers are improved. - Physical Exam Vital Signs Temp Pulse Resp BP 98.4 F 97 16 145/89 H 11/04/19 14:02 11/04/19 14:02 11/04/19 14:02 11/04/19 14:02 Wound Measurements and Assessment WC - Nurse 1 - General Ulcer Measurement Start: 10/21/19 13:15 Freq: Status: Active Protocol: Activity Type Activity Date Activity User E-Sign Co-Sign Detail Recorded Client Recorded Date Recorded By Document 11/04/19 14:02 MW [id number] 11/04/19 14:13 MW 11/04/19 14:02 Wound Center Nurse 1 [Ulcer Assessment] #3 left breast incision -Combined with other wound No -Current Size (cm) - Length 2.0 -Current Size (cm) - Width 2.8 -Current Size (cm) - Depth 0.1 -Total Square Cm 5.60 -Photo Taken No -Epithelialization Small 1-33% -Tunneling Yes -Tunneling Position (O'clock) 10 -Tunneling Distance (cm) 1.4 -Undermining/Tunneling No -Circular Undermining No -Exudate Amt Small -Exudate Type Serosanguineous -Wound Margin Distinct, Outline Attached -Granulation Amt Large (67-100%) -Granulation Quality Pale,Red -Slough/Fibrin Yes -Necrosis Amt Small (1-33%) -Necrotic Tissue Type Adherent Slough -Texture (Flavia-wound Skin Appearance) Assessed, Excoriation, Scarring -Moisture (Flavia-wound Skin Appearance Assessed,Dry/ ) Scaly -Color (Flavia-wound Skin Appearance) Assessed -Temperature (Flavia-wound Skin No Abnormality Appearance) (Pt Warm) -Tenderness on Palpation (Flavia-wound No Skin Appearance) -Ulcer Cleansing soapy water -Foul Odor after Cleansing No -Anesthetic Used 5% Lidocaine Gel #2 right breast -Combined with other wound No -Current Size (cm) - Length 0.1 -Current Size (cm) - Width 0.1 -Current Size (cm) - Depth 0.1 -Total Square Cm 0.01 -Photo Taken No -Epithelialization Large 67-100% -Tunneling No -Undermining/Tunneling No -Circular Undermining No -Exudate Amt None Present -Texture (Flavia-wound Skin Appearance) Assessed, Scarring -Moisture (Flavia-wound Skin Appearance Assessed,Dry/ ) Scaly -Color (Flavia-wound Skin Appearance) Assessed -Temperature (Flavia-wound Skin No Abnormality Appearance) (Pt Warm) -Tenderness on Palpation (Flavia-wound No Skin Appearance) -Ulcer Cleansing Rinsed/ Irrigated with Saline -Foul Odor after Cleansing No -Anesthetic Used 5% Lidocaine Gel WC - Nurse 2 - General Ulcer CM Notes Start: 10/21/19 13:15 Freq: Status: Active Protocol: Activity Type Activity Date Activity User E-Sign Co-Sign Detail Recorded Client Recorded Date Recorded By Document 11/04/19 14:26 TAYLA [id number] 11/04/19 14:42 TAYLA 11/04/19 14:26 Wound Center Nurse 2 [Procedure/Treatment] #3 left breast incision -Time 14:40 -Correct Patient Yes -Correct Side, Site, Position Yes -Correct Procedure Yes -Procedure Performed Yes -Type of Procedure Debridement -Clinical Debridement Subcutaneous -Post Debridement Size (cm) - Length 1.8 -Post Debridement Size (cm) - Width 3.0 -Post Debridement Size (cm) - Depth 1.7 -Total Square Cm 5.40 -Wound/Ulcer Outcome Not Healed -Ulcer Cleansing Rinsed/ Irrigated with Saline -Foul Odor after Cleansing No -Bioengineered Tissue No -Bleeding Controlled with Pressure -Offloading No -Treatment Response Procedure Tolerated Well #2 right breast -Time 14:40 -Correct Patient Yes -Correct Side, Site, Position Yes -Correct Procedure Yes -Procedure Performed Yes -Type of Procedure Debridement -Clinical Debridement Subcutaneous -Post Debridement Size (cm) - Length 2.5 -Post Debridement Size (cm) - Width 6.2 -Post Debridement Size (cm) - Depth 0.2 -Total Square Cm 15.50 -Wound/Ulcer Outcome Not Healed -Ulcer Cleansing Rinsed/ Irrigated with Saline -Foul Odor after Cleansing No -Bioengineered Tissue Yes -Type of bioengineered Tissue THERASKIN #5 -Expiration Date 01/01/23 -Product Lot Number [id number] -Percent Used 100 -Saline Lot Number [id number] -Bleeding Controlled with Pressure -Offloading No -Treatment Response Procedure Tolerated Well [See Physician Procedure note for Specifics] Pain Scale: 0-10 Numeric [Pain] -Is Patient Pain Free? Yes Debridement Note Post-Debridement Measurements/Treatment WC - Nurse 2 - General Ulcer CM Notes Start: 10/21/19 13:15 Freq: Status: Active Protocol: Activity Type Activity Date Activity User E-Sign Co-Sign Detail Recorded Client Recorded Date Recorded By Document 10/21/19 14:03 [id number] 10/21/19 14:12 Document 10/28/19 09:12 [id number] 10/28/19 09:14 Document 11/04/19 14:26 [id number] 11/04/19 14:42 10/21/19 10/28/19 11/04/19 14:03 09:12 14:26 Wound Center Nurse 2 #4- R AREOLA -Time 14:03 -Correct Patient Yes -Correct Side, Site, Position Yes -Correct Procedure No -Procedure Performed No -Post Debridement Size (cm) - Length 0 -Post Debridement Size (cm) - Width 0 -Post Debridement Size (cm) - Depth 0 -Total Square Cm 0 -Wound/Ulcer Outcome Healed- Epithelialized -Foul Odor after Cleansing No -Type of bioengineered Tissue THERASKIN -Expiration Date 08/05/22 -Product Lot Number [id number] -Percent Used 100 -Offloading No #3 left breast incision -Time 09:12 14:40 -Correct Patient Yes Yes -Correct Side, Site, Position Yes Yes -Correct Procedure Yes Yes -Procedure Performed Yes Yes -Type of Procedure Debridement Debridement -Clinical Debridement Subcutaneous Subcutaneous -Post Debridement Size (cm) - Length 1.8 1.8 -Post Debridement Size (cm) - Width 3.7 3.0 -Post Debridement Size (cm) - Depth 1.1 1.7 -Total Square Cm 6.66 5.40 -Wound/Ulcer Outcome Not Healed Not Healed -Ulcer Cleansing Rinsed/ Rinsed/ Irrigated with Irrigated with Saline Saline -Foul Odor after Cleansing No -Bioengineered Tissue No -Bleeding Controlled with Pressure Pressure -Offloading No No -Treatment Response Procedure Procedure Tolerated Well Tolerated Well #2 right breast -Time 14:07 14:40 -Correct Patient Yes No Yes -Correct Side, Site, Position Yes No Yes -Correct Procedure Yes No Yes -Procedure Performed Yes No Yes -Type of Procedure Debridement Debridement -Clinical Debridement Subcutaneous Subcutaneous -Post Debridement Size (cm) - Length 7.5 2.5 -Post Debridement Size (cm) - Width 2.8 6.2 -Post Debridement Size (cm) - Depth 0.2 0.2 -Total Square Cm 21.00 15.50 -Wound/Ulcer Outcome Not Healed Not Healed Not Healed -Ulcer Cleansing Rinsed/ Rinsed/ Irrigated with Irrigated with Saline Saline -Foul Odor after Cleansing No No -Bioengineered Tissue No Yes -Type of bioengineered Tissue THERASKIN #5 -Expiration Date 08/05/22 01/01/23 -Product Lot Number [id number] -Percent Used 100 100 -Saline Lot Number [id number] -Bleeding Controlled with Pressure Pressure -Offloading No No -Treatment Response Procedure Procedure Tolerated Well Tolerated Well Pain Scale: 0-10 Numeric Is Patient Pain Free? Yes Yes Yes Wound debrided: #2 Right breast. Laterality: Right Wound Grade/Stage: 2. Type of Debridement: Excisional debridement Anesthesia Used: 4% Lidocaine Solution Depth: Down to and including healthy tissue, in the subcutaneous layer Percentage of wound debrided: 100 Instrument Used: 5mm curette Tissue Removed: subcutaneous tissue. Severity: Fat Layer Exposed Amount of bleeding with debridement: Mild Bleeding Controlled with: Pressure Patient tolerated procedure well, - - Had Theraskin skin substitute graft #5 application today. Expiration Date - 01/01/23. Product Lot Number - [id number]. Percent Used - 100%. Saline Lot Number - [id number]. - Additional Wound Wound debrided: #3 Left breast. Laterality: Left Wound Grade/Stage: 2. Type of Debridement: Excisional debridement Anesthesia Used: 4% Lidocaine Solution Depth: Down to and including healthy tissue, in the subcutaneous layer Percentage of wound debrided: 100 Instrument Used: 5mm curette Tissue Removed: subcutaneous tissue. Severity: Fat Layer Exposed Amount of bleeding with debridement: Mild Bleeding Controlled with: Pressure Patient tolerated procedure: Patient tolerated procedure well Assessment/Plan Active Problems Wound of right breast (Chronic) Wound of left breast (Chronic) Type 2 diabetes mellitus (Chronic) Smoker (Chronic) Assessment: 1. Nonhealing ulcers bilateral breasts at [facility]. 2. Ulcer right nipple areola, healed. 3. Bilateral macromastia. 4. s/p bilateral breast reduction mammaplasty. 5. Smoker. 6. Diabetes mellitus. Plan: The right nipple ulcer remains healed. Thera-skin #5 on the right breast at [facility] was applied today, using 100% of the product. Covered with a wound veil. Continue SNAP VAC to help decrease the depth of the left breast wound. She will return at the end of the week to have the SNAP VAC replaced. She has been taking her Doxycycline for her positive wound culture from 10/07/19 which was positive for MRSA and Corynebacterium striatum from her right breast Tzone wound. Prealbumin from 06/22/19 was 17.8. Encouraged nutritional supplementation with protein to help the healing process. The right breast ulcer is almost healed with the Thera-skin. The left breast ulcer is improving, but there is a persistent area of undermining that the SNAP VAC is trying to heal. Recommended to the patient to proceed with surgical preparation of the left breast ulcer which includes unroofing the area of undermining with skin grafting. Patient is interested in further surgery for wound closure. Will schedule under general anesthesia on an outpatient basis. Patient was informed of the risks and complications of the procedure including alternatives to surgery. These were discussed with her personally. She voices understanding and wishes to proceed. Follow up one week. Encouraged patient to stop smoking as it may have deleterious effects on wound healing. Code Visit 111xxx-113xx: 24208 Maricruz subq tissue 20 sq cm/< - -59 Modifier ICD-10 - L98.492, T14.8xxA, N62, E11.9, F17.200, A49.02 Multi Select Codes - Integumentary Integumentary CPT Codes: 12582 Skin sub graft trnk/arm/leg - ICD-10 - L98.492, T14.8xxA, N62, E11.9, F17.200, A49.02
[2019-11-04 18:46] LABS: ALB/GLOB Ratio 0.9 RATIO (0.9-2.4); AST(SGOT) 15 U/L (15-37); Alanine Aminotransfer ALT/SGPT 26 U/L (13-56); Albumin, Serum 3.5 g/dL (3.2-5.0); Alkaline Phosphatase 91 U/L (45-117); Anion Gap 8 (5-15); BUN 14 mg/dL (7-18); BUN/Creat Ratio 16.1 RATIO (10-20); Calcium,Total 9.4 mg/dL (8.5-10.1); Chloride 107 mmol/L (98-107); Creatinine, Serum 0.87 mg/dL (0.55-1.02); EST Glomerular Filtration Rate 73 mL/min (>60); Est Glom Filt Rate - Afr Amer 89 mL/min (>60); Estimated Creatinine Clearance 69.61 ml/min; Globulin 3.9 g/dL (2.2-4.2); Glucose 91 mg/dL (74-106); Protein, Total 7.4 g/dL (6.4-8.2); Sodium Level 140 mmol/L (136-145)
[2019-11-08 09:14] VITALS: BP 138/85; PULSE 90; RESP 18; TEMP 36.5; BMI 30.9
[2019-11-11 08:33] VITALS: BP 125/81; PULSE 108; RESP 18; TEMP 36.4; BMI 30.9
--- NOTE | 2019-11-11 13:16 | PCM.WC.PN ---
(1) Wound of right breast Status: Chronic Code(s): S21.001A - Unspecified open wound of right breast, initial encounter (2) Wound of left breast Status: Chronic Code(s): S21.002A - Unspecified open wound of left breast, initial encounter (3) Type 2 diabetes mellitus Status: Chronic Code(s): E11.9 - Type 2 diabetes mellitus without complications (4) Smoker Status: Chronic Code(s): F17.200 - Nicotine dependence, unspecified, uncomplicated Type of Wound Date of Service: 11/11/19 Chief Complaint: Nonhealing ulcers bilateral breasts at [facility]. History of Wound: Surgery 06/21/19 - Bilateral breast reduction mammaplasty. She was admitted to hospital on 07/05/19 with elevated WBC and comprosed wound healing. On 07/08/19 the right breast eschar was debrided in the hospital to make wound care easier and to drain infection. Wound VAC was started along with PICC line placement and Ceftriaxone IV antibiotics. Wound culture from 07/08/19 was positive for Proteus mirabilis, Enterococcus faecalis and MRSE. Augmentin and Doxycycline were added and she has finished them. On 07/22/19, there was wound breakdown on the left breast at the [facility]. Debridement was done and a wound culture showed MRSE and Corynebacterium amycolatum. During her IV antibiotics, the Creatinine increased to 1.32 on 08/12/19. The Ceftriaxone was stopped. The following week on 08/18/19 the Creatinine improved to normal at 0.98. Repeat wound culture on 10/07/19 showed MRSA and Corynebacterium striatum. She was placed on Doxycycline. Wound care - Theraskin #5 applied to right breast at [facility] last week. SNAP VAC placed to the left breast at [facility]. Today she denies fever. She states her appetite is ok. Progress of Wound: The bilateral Tzone ulcers are improved. - Physical Exam Vital Signs Temp Pulse Resp BP 97.6 F L 108 H 18 125/81 H 11/11/19 08:33 11/11/19 08:33 11/11/19 08:33 11/11/19 08:33 General: Alert, Oriented x3, Cooperative HEENT: Atraumatic Oral: Moist Mucosa Lungs: Normal air movement Cardiovascular: Regular rate Abdomen: Soft Extremities: Capillary Refill Less than 3 Seconds, Peripheral Pulses Normal Skin: Ulcer/ Wound - Right breast at T-zone with TheraSkin in place. Left breast at T-zone Wound Measurements and Assessment WC - Nurse 1 - General Ulcer Measurement Start: 10/21/19 13:15 Freq: Status: Active Protocol: Activity Type Activity Date Activity User E-Sign Co-Sign Detail Recorded Client Recorded Date Recorded By Document 11/11/19 08:33 MW [id number] 11/11/19 08:47 MW 11/11/19 08:33 Wound Center Nurse 1 [Ulcer Assessment] #3 left breast incision -Combined with other wound No -Current Size (cm) - Length 1.5 -Current Size (cm) - Width 3.0 -Current Size (cm) - Depth 0.5 -Total Square Cm 4.50 -Photo Taken No -Epithelialization Small 1-33% -Tunneling No -Undermining/Tunneling No -Circular Undermining No -Exudate Amt Medium -Exudate Type Serosanguineous -Wound Margin Distinct, Outline Attached -Granulation Amt Large (67-100%) -Granulation Quality Red -Slough/Fibrin Yes -Necrosis Amt Small (1-33%) -Necrotic Tissue Type Necrosis of Muscle -Structure Exposed N/A -Texture (Flavia-wound Skin Appearance) Assessed, Scarring -Moisture (Flavia-wound Skin Appearance No Abnormality, ) Assessed -Color (Flavia-wound Skin Appearance) No Abnormality, Assessed -Temperature (Flavia-wound Skin No Abnormality Appearance) (Pt Warm) -Tenderness on Palpation (Flavia-wound No Skin Appearance) -Ulcer Cleansing soap and water -Foul Odor after Cleansing No -Anesthetic Used 4% Lidocaine Solution #2 right breast -Combined with other wound No -Current Size (cm) - Length 0.1 -Current Size (cm) - Width 0.1 -Current Size (cm) - Depth 0.1 -Total Square Cm 0.01 -Photo Taken No -Epithelialization None Present -Tunneling No -Undermining/Tunneling No -Circular Undermining No -Exudate Amt None Present -Wound Margin Flat & Intact -Granulation Amt None Present (0 %) -Granulation Quality N/A -Slough/Fibrin Yes -Necrosis Amt Small (1-33%) -Necrotic Tissue Type Adherent Slough -Structure Exposed N/A -Texture (Flavia-wound Skin Appearance) Assessed, Scarring -Moisture (Flavia-wound Skin Appearance No Abnormality, ) Assessed -Color (Flavia-wound Skin Appearance) No Abnormality, Assessed -Temperature (Flavia-wound Skin No Abnormality Appearance) (Pt Warm) -Ulcer Cleansing Not Cleansed -Foul Odor after Cleansing No [Edema Assessment] -Lower Limb Edema Present No WC - Nurse 2 - General Ulcer CM Notes Start: 10/21/19 13:15 Freq: Status: Active Protocol: Activity Type Activity Date Activity User E-Sign Co-Sign Detail Recorded Client Recorded Date Recorded By Document 11/11/19 09:10 [id number] 11/11/19 09:11 11/11/19 09:10 Wound Center Nurse 2 [Procedure/Treatment] #3 left breast incision -Time 09:10 -Correct Patient Yes -Correct Side, Site, Position Yes -Correct Procedure Yes -Procedure Performed Yes -Type of Procedure Debridement -Clinical Debridement Subcutaneous -Post Debridement Size (cm) - Length 1.7 -Post Debridement Size (cm) - Width 3.0 -Post Debridement Size (cm) - Depth 1.7 -Total Square Cm 5.10 -Wound/Ulcer Outcome Not Healed -Ulcer Cleansing Rinsed/ Irrigated with Saline -Foul Odor after Cleansing No -Bioengineered Tissue No -Bleeding Controlled with Pressure -Offloading No -Treatment Response Procedure Tolerated Well #2 right breast -Correct Patient No -Correct Side, Site, Position No -Correct Procedure No -Procedure Performed No -Wound/Ulcer Outcome Not Healed [See Physician Procedure note for Specifics] Pain Scale: 0-10 Numeric [Pain] -Is Patient Pain Free? Yes Musculoskeletal: No Muscle Wasting Neurological: Neuro grossly intact Psych/Mental Status: Appropriate, Depressed Debridement Note Post-Debridement Measurements/Treatment WC - Nurse 2 - General Ulcer CM Notes Start: 10/21/19 13:15 Freq: Status: Active Protocol: Activity Type Activity Date Activity User E-Sign Co-Sign Detail Recorded Client Recorded Date Recorded By Document 10/21/19 14:03 [id number] 10/21/19 14:12 Document 10/28/19 09:12 [id number] 10/28/19 09:14 Document 11/04/19 14:26 [id number] 11/04/19 14:42 Document 11/11/19 09:10 [id number] 11/11/19 09:11 JF 10/21/19 10/28/19 11/04/19 14:03 09:12 14:26 Wound Center Nurse 2 #4- R AREOLA -Time 14:03 -Correct Patient Yes -Correct Side, Site, Position Yes -Correct Procedure No -Procedure Performed No -Post Debridement Size (cm) - Length 0 -Post Debridement Size (cm) - Width 0 -Post Debridement Size (cm) - Depth 0 -Total Square Cm 0 -Wound/Ulcer Outcome Healed- Epithelialized -Foul Odor after Cleansing No -Type of bioengineered Tissue THERASKIN -Expiration Date 08/05/22 -Product Lot Number [id number] -Percent Used 100 -Offloading No #3 left breast incision -Time 09:12 14:40 -Correct Patient Yes Yes -Correct Side, Site, Position Yes Yes -Correct Procedure Yes Yes -Procedure Performed Yes Yes -Type of Procedure Debridement Debridement -Clinical Debridement Subcutaneous Subcutaneous -Post Debridement Size (cm) - Length 1.8 1.8 -Post Debridement Size (cm) - Width 3.7 3.0 -Post Debridement Size (cm) - Depth 1.1 1.7 -Total Square Cm 6.66 5.40 -Wound/Ulcer Outcome Not Healed Not Healed -Ulcer Cleansing Rinsed/ Rinsed/ Irrigated with Irrigated with Saline Saline -Foul Odor after Cleansing No -Bioengineered Tissue No -Bleeding Controlled with Pressure Pressure -Offloading No No -Treatment Response Procedure Procedure Tolerated Well Tolerated Well #2 right breast -Time 14:07 14:40 -Correct Patient Yes No Yes -Correct Side, Site, Position Yes No Yes -Correct Procedure Yes No Yes -Procedure Performed Yes No Yes -Type of Procedure Debridement Debridement -Clinical Debridement Subcutaneous Subcutaneous -Post Debridement Size (cm) - Length 7.5 2.5 -Post Debridement Size (cm) - Width 2.8 6.2 -Post Debridement Size (cm) - Depth 0.2 0.2 -Total Square Cm 21.00 15.50 -Wound/Ulcer Outcome Not Healed Not Healed Not Healed -Ulcer Cleansing Rinsed/ Rinsed/ Irrigated with Irrigated with Saline Saline -Foul Odor after Cleansing No No -Bioengineered Tissue No Yes -Type of bioengineered Tissue THERASKIN -Expiration Date 08/05/22 01/01/23 -Product Lot Number [id number] -Percent Used 100 100 -Saline Lot Number [id number] -Bleeding Controlled with Pressure Pressure -Offloading No No -Treatment Response Procedure Procedure Tolerated Well Tolerated Well Pain Scale: 0-10 Numeric Is Patient Pain Free? Yes Yes Yes 11/11/19 09:10 Wound Center Nurse 2 #4- R AREOLA -Time -Correct Patient -Correct Side, Site, Position -Correct Procedure -Procedure Performed -Post Debridement Size (cm) - Length -Post Debridement Size (cm) - Width -Post Debridement Size (cm) - Depth -Total Square Cm -Wound/Ulcer Outcome -Foul Odor after Cleansing -Type of bioengineered Tissue -Expiration Date -Product Lot Number -Percent Used -Offloading #3 left breast incision -Time 09:10 -Correct Patient Yes -Correct Side, Site, Position Yes -Correct Procedure Yes -Procedure Performed Yes -Type of Procedure Debridement -Clinical Debridement Subcutaneous -Post Debridement Size (cm) - Length 1.7 -Post Debridement Size (cm) - Width 3.0 -Post Debridement Size (cm) - Depth 1.7 -Total Square Cm 5.10 -Wound/Ulcer Outcome Not Healed -Ulcer Cleansing Rinsed/ Irrigated with Saline -Foul Odor after Cleansing No -Bioengineered Tissue No -Bleeding Controlled with Pressure -Offloading No -Treatment Response Procedure Tolerated Well #2 right breast -Time -Correct Patient No -Correct Side, Site, Position No -Correct Procedure No -Procedure Performed No -Type of Procedure -Clinical Debridement -Post Debridement Size (cm) - Length -Post Debridement Size (cm) - Width -Post Debridement Size (cm) - Depth -Total Square Cm -Wound/Ulcer Outcome Not Healed -Ulcer Cleansing -Foul Odor after Cleansing -Bioengineered Tissue -Type of bioengineered Tissue -Expiration Date -Product Lot Number -Percent Used -Saline Lot Number -Bleeding Controlled with -Offloading -Treatment Response Pain Scale: 0-10 Numeric Is Patient Pain Free? Yes Wound debrided: Left breast T-zone Laterality: Left Type of Debridement: Excisional debridement Depth: Down to and including healthy tissue, in the subcutaneous layer Percentage of wound debrided: 100 Instrument Used: 5mm curette Tissue Removed: Subcutaneous tissue and slough Severity: Fat Layer Exposed Amount of bleeding with debridement: Mild Bleeding Controlled with: Pressure Assessment/Plan Assessment: 1. Nonhealing ulcers bilateral breasts at Tzone. 2. Ulcer right nipple areola, healed. 3. Bilateral macromastia. 4. s/p bilateral breast reduction mammaplasty. 5. Smoker. 6. Diabetes mellitus. Plan: The right nipple ulcer remains healed. Thera-skin #5 on the right breast at [facility] was applied last week, using 100% of the product. Covered with a wound veil. She is placing collagen hydrogel over this daily to help keep it moist and prevent the TheraSkin from drying out. Continue SNAP VAC to help decrease the depth of the left breast wound. She will return at the end of the week to have the SNAP VAC replaced. She has been taking her Doxycycline for her positive wound culture from 10/07/19 which was positive for MRSA and Corynebacterium striatum from her right breast Tzone wound. Prealbumin from 06/22/19 was 17.8. Encouraged nutritional supplementation with protein to help the healing process. The right breast ulcer is almost healed with the Thera-skin. The left breast ulcer is improving, but there is a persistent area of undermining that the SNAP VAC is trying to heal. Recommended to the patient to proceed with surgical preparation of the left breast ulcer which includes unroofing the area of undermining with skin grafting. Patient is interested in further surgery for wound closure. Will schedule under general anesthesia on an outpatient basis. Patient was informed of the risks and complications of the procedure including alternatives to surgery. These were discussed with her personally. She voices understanding and wishes to proceed. Renewed Percocet (14 tabs) for pain, PDMP reviewed. Follow up one week. Encouraged patient to stop smoking as it may have deleterious effects on wound healing. Code Visit [id number]: [id number] Maricruz subq tissue 20 sq cm/<
[2019-11-15 14:51] VITALS: BP 124/84; PULSE 107; RESP 16; TEMP 36.9; BMI 30.9
--- NOTE | 2019-11-15 14:52 | WC ---
UPON REMOVAL OF SNAP, NOTED SURROUNDING TISSUE @ 11 O'CLOCK W/ ^ IRRITATION. BRIDGET ANDERSONELL HERE AND OBSERVED. N.O. TO APPLY SILVERCEL AND DCD DAILY TO WOUND UNTIL NEXT VISIT. DO NOT REAPPLY SNAP AT THIS TIME. PT AGREEBLE AND VOICES UNDERSTANDING OF SILVERCELL USE.
== END 2019-11-15 23:59 ==
LOC: WC 14:30
PROVIDERS: Family Provider Family Medicine; PCP Family Medicine; Referring Provider Nurse Practitioner Family; Visit Provider Nurse Practitioner Family
DX: T81.31XA Disruption of external operation (surgical) wound, not elsewhere classified, initial encounter (principal); Y83.8 Other surgical procedures as the cause of abnormal reaction of the patient, or of later complication, without mention of misadventure at the time of the procedure; N62 Hypertrophy of breast; E11.9 Type 2 diabetes mellitus without complications; T81.89XA Other complications of procedures, not elsewhere classified, initial encounter; F17.200 Nicotine dependence, unspecified, uncomplicated
CPT/HCPCS: 11042; 15271; 80053; 97607; 99212; 99213; Q4121; G0463

== ENCOUNTER 2019-12-09 11:15 | Outpatient (RCR) | payer MEDICARE, MEDICAID, SELFPAY ==
[2019-11-16 00:41] VITALS: BP 124/84; PULSE 107; RESP 16; TEMP 36.9
[2019-11-18 11:22] VITALS: BP 159/102; PULSE 97; RESP 16; TEMP 36.2; BMI 30.9
--- NOTE | 2019-11-18 15:06 | PCM.WC.PN ---
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 Status: Chronic Current Visit: Yes Code(s): L98.492 - Non-pressure chronic ulcer of skin of other sites with fat layer exposed Comment: nonhealing ulcers bilateral breasts at [facility] (2) MRSA (methicillin resistant Staphylococcus aureus) infection Status: Chronic Current Visit: Yes Code(s): A49.02 - Methicillin resistant Staphylococcus aureus infection, unspecified site (3) Smoker Status: Chronic Current Visit: Yes Code(s): F17.200 - Nicotine dependence, unspecified, uncomplicated Type of Wound Date of Service: 11/18/19 Chief Complaint: Nonhealing ulcers bilateral breasts at [facility]. History of Wound: Surgery 06/21/19 - Bilateral breast reduction mammaplasty. She was admitted to hospital on 07/05/19 with elevated WBC and comprosed wound healing. On 07/08/19 the right breast eschar was debrided in the hospital to make wound care easier and to drain infection. Wound VAC was started along with PICC line placement and Ceftriaxone IV antibiotics. Wound culture from 07/08/19 was positive for Proteus mirabilis, Enterococcus faecalis and MRSE. Augmentin and Doxycycline were added and she has finished them. On 07/22/19, there was wound breakdown on the left breast at the [facility]. Debridement was done and a wound culture showed MRSE and Corynebacterium amycolatum. During her IV antibiotics, the Creatinine increased to 1.32 on 08/12/19. The Ceftriaxone was stopped. The following week on 08/18/19 the Creatinine improved to normal at 0.98. Repeat wound culture on 10/07/19 showed MRSA and Corynebacterium striatum. She was placed on Doxycycline. Wound care - Theraskin #5 removed today and she is healed on the right and SNAP VAC on the left breast at [facility]. She is having increased pain on the right so we will send a wound culture. Today she denies fever. She states her appetite is ok. Progress of Wound: The right Tzone is healed and the left Tzone is much improved. - Physical Exam Vital Signs Temp Pulse Resp BP 97.1 F L 97 16 159/102 H 11/18/19 11:22 11/18/19 11:22 11/18/19 11:22 11/18/19 11:22 General: Alert, Oriented x3, Cooperative HEENT: Atraumatic Oral: Moist Mucosa Lungs: Normal air movement Cardiovascular: Regular rate Abdomen: Soft Extremities: Capillary Refill Less than 3 Seconds Skin: Ulcer/ Wound - right Tzone is healed. Left Tzone has decreased depth with no visible fat necrosis. Wound Measurements and Assessment WC - Nurse 1 - General Ulcer Measurement Start: 11/18/19 11:21 Freq: Status: Active Protocol: Activity Type Activity Date Activity User E-Sign Co-Sign Detail Recorded Client Recorded Date Recorded By Document 11/18/19 11:22 [facility] [id number] 11/18/19 11:26 [facility] 11/18/19 11:22 Wound Center Nurse 1 [Ulcer Assessment] #3 left breast incision -Combined with other wound No -Current Size (cm) - Length 2 -Current Size (cm) - Width 2 -Current Size (cm) - Depth 0.3 -Total Square Cm 4 -Photo Taken No -Epithelialization Small 1-33% -Tunneling No -Undermining/Tunneling Yes -Undermining/Tunneling Starts (O' 9 clock) -Undermining/Tunneling Ends (O'clock) 11 -Maximum Distance (cm) 0.3 -Circular Undermining No -Exudate Amt Small -Exudate Type Serosanguineous -Wound Margin Distinct, Outline Attached -Granulation Amt Large (67-100%) -Granulation Quality Pale,Red -Slough/Fibrin Yes -Necrosis Amt Small (1-33%) -Necrotic Tissue Type Adherent Slough -Texture (Flavia-wound Skin Appearance) Assessed, Scarring -Moisture (Flavia-wound Skin Appearance Assessed ) -Color (Flavia-wound Skin Appearance) Assessed -Temperature (Flavia-wound Skin No Abnormality Appearance) (Pt Warm) -Tenderness on Palpation (Flavia-wound No Skin Appearance) -Ulcer Cleansing soapy water -Foul Odor after Cleansing No -Anesthetic Used 4% Lidocaine Solution #2 right breast -Combined with other wound No -Current Size (cm) - Length 0.1 -Current Size (cm) - Width 0.1 -Current Size (cm) - Depth 0.1 -Total Square Cm 0.01 -Photo Taken No -Epithelialization Large 67-100% -Tunneling No -Undermining/Tunneling No -Circular Undermining No -Exudate Amt None Present -Texture (Flavia-wound Skin Appearance) Assessed, Scarring -Moisture (Flavia-wound Skin Appearance Assessed,Dry/ ) Scaly -Color (Flavia-wound Skin Appearance) Assessed -Temperature (Flavia-wound Skin No Abnormality Appearance) (Pt Warm) -Tenderness on Palpation (Flavia-wound No Skin Appearance) -Ulcer Cleansing soapy water -Foul Odor after Cleansing No -Anesthetic Used 4% Lidocaine Solution MACY - Nurse 2 - General Ulcer CM Notes Start: 11/18/19 11:21 Freq: Status: Active Protocol: Activity Type Activity Date Activity User E-Sign Co-Sign Detail Recorded Client Recorded Date Recorded By Document 11/18/19 11:54 [id number] 11/18/19 11:55 11/18/19 11:54 Wound Center Nurse 2 [Procedure/Treatment] #3 left breast incision -Time 11:54 -Correct Patient Yes -Correct Side, Site, Position Yes -Correct Procedure Yes -Procedure Performed Yes -Type of Procedure Debridement -Clinical Debridement Subcutaneous -Post Debridement Size (cm) - Length 1.5 -Post Debridement Size (cm) - Width 1.9 -Post Debridement Size (cm) - Depth 0.5 -Total Square Cm 2.85 -Wound/Ulcer Outcome Not Healed -Ulcer Cleansing Rinsed/ Irrigated with Saline -Foul Odor after Cleansing No -Bioengineered Tissue No -Bleeding Controlled with Pressure -Offloading No -Treatment Response Procedure Tolerated Well #2 right breast -Correct Patient No -Correct Side, Site, Position No -Correct Procedure No -Procedure Performed No -Post Debridement Size (cm) - Length 0 -Post Debridement Size (cm) - Width 0 -Post Debridement Size (cm) - Depth 0 -Total Square Cm 0 -Wound/Ulcer Outcome Healed- Epithelialized [See Physician Procedure note for Specifics] Pain Scale: 0-10 Numeric [Pain] -Is Patient Pain Free? Yes Musculoskeletal: No Muscle Wasting Neurological: Deep Tendon Reflexes 2+/4 and Symmetrical Psych/Mental Status: Normal Affect, Appropriate Debridement Note Post-Debridement Measurements/Treatment MACY - Nurse 2 - General Ulcer CM Notes Start: 11/18/19 11:21 Freq: Status: Active Protocol: Activity Type Activity Date Activity User E-Sign Co-Sign Detail Recorded Client Recorded Date Recorded By Document 11/18/19 11:54 [id number] 11/18/19 11:55 11/18/19 11:54 Wound Center Nurse 2 #3 left breast incision -Time 11:54 -Correct Patient Yes -Correct Side, Site, Position Yes -Correct Procedure Yes -Procedure Performed Yes -Type of Procedure Debridement -Clinical Debridement Subcutaneous -Post Debridement Size (cm) - Length 1.5 -Post Debridement Size (cm) - Width 1.9 -Post Debridement Size (cm) - Depth 0.5 -Total Square Cm 2.85 -Wound/Ulcer Outcome Not Healed -Ulcer Cleansing Rinsed/ Irrigated with Saline -Foul Odor after Cleansing No -Bioengineered Tissue No -Bleeding Controlled with Pressure -Offloading No -Treatment Response Procedure Tolerated Well #2 right breast -Correct Patient No -Correct Side, Site, Position No -Correct Procedure No -Procedure Performed No -Post Debridement Size (cm) - Length 0 -Post Debridement Size (cm) - Width 0 -Post Debridement Size (cm) - Depth 0 -Total Square Cm 0 -Wound/Ulcer Outcome Healed- Epithelialized Pain Scale: 0-10 Numeric Is Patient Pain Free? Yes Wound debrided: Tzone Laterality: Left Type of Debridement: Excisional debridement Anesthesia Used: 5% Lidocaine Gel Depth: Down to and including healthy tissue, in the subcutaneous layer Percentage of wound debrided: 100 Instrument Used: 3mm curette Tissue Removed: Subcutaneous tissue and slough Severity: Fat Layer Exposed Amount of bleeding with debridement: Mild Bleeding Controlled with: Pressure Patient tolerated procedure well Assessment/Plan Active Problems MRSA (methicillin resistant Staphylococcus aureus) infection (Chronic) Chronic skin ulcer with fat layer exposed (Chronic) nonhealing ulcers bilateral breasts at [facility] Smoker (Chronic) Assessment: 1. Nonhealing ulcers bilateral breasts at [facility]. 2. Ulcer right nipple areola, healed. 3. Bilateral macromastia. 4. s/p bilateral breast reduction mammaplasty. 5. Smoker. 6. Diabetes mellitus. Plan: The right nipple ulcer remains healed. The right Tzone is healed this week after Thera-skin #5. She had an issue with the SNAP VAC last Monday where she had some of her skin in the suction tubing. The SNAP vac was stopped for the weekend. She is having no issues today so we will continue SNAP VAC to help continue to decrease the depth of the left breast wound. She will return at the end of the week to have the SNAP VAC replaced. She is having increased pain at the left Tzone area so we will send a wound culture. Depending on the results of the culture, it may necessitate antibiotic change. She has been taking her Doxycycline for her positive wound culture from 10/07/19 which was positive for MRSA and Corynebacterium striatum from her right breast Tzone wound. Prealbumin from 06/22/19 was 17.8. Encouraged nutritional supplementation with protein to help the healing process. The right breast is healed. Encouraged her massage the area daily to help soften scarring. The left breast ulcer is improving, but there is a persistent area of undermining that the SNAP VAC is trying to heal. Recommended to the patient to proceed with surgical preparation of the left breast ulcer which includes unroofing the area of undermining with skin grafting. Patient is interested in further surgery for wound closure. Will schedule under general anesthesia on an outpatient basis. Patient was informed of the risks and complications of the procedure including alternatives to surgery. These were discussed with her personally. She voices understanding and wishes to proceed. Renewed Percocet (14 tabs) for pain, PDMP reviewed. Follow up one week. Encouraged patient to stop smoking as it may have deleterious effects on wound healing. Code Visit [id number]: [id number] Maricruz subq tissue 20 sq cm/<
[2019-11-22 11:58] VITALS: BP 141/100; PULSE 102; RESP 18; TEMP 37.3; BMI 30.9
--- NOTE | 2019-11-22 12:00 | WC ---
Addendum entered by Junie Cortez 11/22/19 12:03: ALSO, PT ENCOURAGED TO TAKE A PROBIOTIC PER BRIDGET'S INSTRUCTION. Original Note: SPOKE W/ BRIDGET SORENSEN, WHO REVIEWED PT'S CX RESULTS. N.O. TO ADD CLINDAMYCIN 300MG PO TID X 15 DAYS W/ 1 REFILL. PT IS TO CON'T TO TAKE CURRENT DOSE OF DOXYCYCLINE IN ADDITION TO THE CLINDAMYCIN. PT HERE FOR NURSE VISIT AND UPDATED ON WOUND CX RESULTS AND NEW ATB ORDER. VOICES UNDERSTANDING AND AGREEABLE. RX CALLED TO [facility] PER PT PREFERENCE.
[2019-11-25 11:21] VITALS: BP 131/78; PULSE 110; RESP 18; TEMP 35.7; BMI 30.9
--- NOTE | 2019-11-25 12:57 | PCM.WC.PN ---
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 Status: Chronic Code(s): L98.492 - Non-pressure chronic ulcer of skin of other sites with fat layer exposed Comment: nonhealing ulcers bilateral breasts at [facility] (2) MRSA (methicillin resistant Staphylococcus aureus) infection Status: Chronic Code(s): A49.02 - Methicillin resistant Staphylococcus aureus infection, unspecified site (3) Smoker Status: Chronic Code(s): F17.200 - Nicotine dependence, unspecified, uncomplicated Type of Wound Date of Service: 11/25/19 Chief Complaint: Nonhealing ulcers bilateral breasts at [facility]. History of Wound: Surgery 06/21/19 - Bilateral breast reduction mammaplasty. She was admitted to hospital on 07/05/19 with elevated WBC and comprosed wound healing. On 07/08/19 the right breast eschar was debrided in the hospital to make wound care easier and to drain infection. Wound VAC was started along with PICC line placement and Ceftriaxone IV antibiotics. Wound culture from 07/08/19 was positive for Proteus mirabilis, Enterococcus faecalis and MRSE. Augmentin and Doxycycline were added and she has finished them. On 07/22/19, there was wound breakdown on the left breast at the [facility]. Debridement was done and a wound culture showed MRSE and Corynebacterium amycolatum. During her IV antibiotics, the Creatinine increased to 1.32 on 08/12/19. The Ceftriaxone was stopped. The following week on 08/18/19 the Creatinine improved to normal at 0.98. Repeat wound culture on 10/07/19 showed MRSA and Corynebacterium striatum. She was placed on Doxycycline. Wound care - Healed on the right. Will stop the SNAP VAC on the left breast at [facility] and do moistened silver to the base of the wound. She is having increased pain on the right so we will send a wound culture. Today she denies fever. She states her appetite is ok. Progress of Wound: The right Tzone is healed and the left Tzone is much improved. - Physical Exam Vital Signs Temp Pulse Resp BP 96.3 F L 110 H 18 131/78 H 11/25/19 11:21 11/25/19 11:21 11/25/19 11:21 11/25/19 11:21 General: Alert, Oriented x3, Cooperative HEENT: Atraumatic Oral: Moist Mucosa Cardiovascular: Regular rate Extremities: Capillary Refill Less than 3 Seconds Skin: Ulcer/ Wound - left breast Tzone ulcer improved. Right breast Tzone remains healed. Wound Measurements and Assessment WC - Nurse 1 - General Ulcer Measurement Start: 11/18/19 11:21 Freq: Status: Active Protocol: Activity Type Activity Date Activity User E-Sign Co-Sign Detail Recorded Client Recorded Date Recorded By Document 11/22/19 11:58 RB [id number] 11/22/19 11:59 RB Document 11/25/19 11:21 [facility] [id number] 11/25/19 11:25 BM 11/22/19 11/25/19 11:58 11:21 Wound Center Nurse 1 [Ulcer Assessment] #3 left breast incision -Combined with other wound No -Current Size (cm) - Length 1.2 -Current Size (cm) - Width 2.3 -Current Size (cm) - Depth 0.1 -Total Square Cm 2.76 -Photo Taken No -Tunneling Yes -Tunneling Position (O'clock) 10 -Tunneling Distance (cm) 0.5 -Undermining/Tunneling No -Circular Undermining No -Exudate Amt Small Medium -Exudate Type Serosanguineous Serosanguineous -Wound Margin Flat & Intact Flat & Intact -Granulation Amt Large (67-100%) Large (67-100%) -Granulation Quality Amity Amity,Red -Slough/Fibrin Yes Yes -Necrosis Amt Small (1-33%) Small (1-33%) -Necrotic Tissue Type Adherent Slough Adherent Slough -Structure Exposed N/A N/A -Texture (Flavia-wound Skin Appearance) Assessed, Scarring Scarring -Moisture (Flavia-wound Skin Appearance Assessed Assessed ) -Color (Flavia-wound Skin Appearance) Assessed Assessed -Temperature (Flavia-wound Skin No Abnormality No Abnormality Appearance) (Pt Warm) (Pt Warm) -Tenderness on Palpation (Flavia-wound No No Skin Appearance) -Ulcer Cleansing Wound Cleanser Wound Cleanser -Foul Odor after Cleansing No No -Anesthetic Used 5% Lidocaine Gel WC - Nurse 2 - General Ulcer CM Notes Start: 11/18/19 11:21 Freq: Status: Active Protocol: Activity Type Activity Date Activity User E-Sign Co-Sign Detail Recorded Client Recorded Date Recorded By Document 11/25/19 11:45 [id number] 11/25/19 11:49 11/25/19 11:45 Wound Center Nurse 2 [Procedure/Treatment] -Time 11:47 -Correct Patient Yes -Correct Side, Site, Position Yes -Correct Procedure Yes -Procedure Performed Yes -Type of Procedure Debridement -Clinical Debridement Subcutaneous -Post Debridement Size (cm) - Length 1.0 -Post Debridement Size (cm) - Width 2.3 -Post Debridement Size (cm) - Depth 0.1 -Total Square Cm 2.30 -Wound/Ulcer Outcome Not Healed -Ulcer Cleansing Rinsed/ Irrigated with Saline -Foul Odor after Cleansing No -Bioengineered Tissue No -Bleeding Controlled with Pressure -Other tunnel 9:00---0 .4cm -Offloading No -Treatment Response Procedure Tolerated Well [See Physician Procedure note for Specifics] Pain Scale: 0-10 Numeric [Pain] -Is Patient Pain Free? Yes Musculoskeletal: No Muscle Wasting Neurological: Neuro grossly intact Psych/Mental Status: Normal Affect, Appropriate Debridement Note Post-Debridement Measurements/Treatment - Nurse 2 - General Ulcer CM Notes Start: 11/18/19 11:21 Freq: Status: Active Protocol: Activity Type Activity Date Activity User E-Sign Co-Sign Detail Recorded Client Recorded Date Recorded By Document 11/18/19 11:54 [id number] 11/18/19 11:55 Document 11/25/19 11:45 [id number] 11/25/19 11:49 11/18/19 11/25/19 11:54 11:45 Wound Center Nurse 2 #3 left breast incision -Time 11:54 11:47 -Correct Patient Yes Yes -Correct Side, Site, Position Yes Yes -Correct Procedure Yes Yes -Procedure Performed Yes Yes -Type of Procedure Debridement Debridement -Clinical Debridement Subcutaneous Subcutaneous -Post Debridement Size (cm) - Length 1.5 1.0 -Post Debridement Size (cm) - Width 1.9 2.3 -Post Debridement Size (cm) - Depth 0.5 0.1 -Total Square Cm 2.85 2.30 -Wound/Ulcer Outcome Not Healed Not Healed -Ulcer Cleansing Rinsed/ Rinsed/ Irrigated with Irrigated with Saline Saline -Foul Odor after Cleansing No No -Bioengineered Tissue No No -Bleeding Controlled with Pressure Pressure -Other tunnel 9:00---0 .4cm -Offloading No No -Treatment Response Procedure Procedure Tolerated Well Tolerated Well #2 right breast -Correct Patient No -Correct Side, Site, Position No -Correct Procedure No -Procedure Performed No -Post Debridement Size (cm) - Length 0 -Post Debridement Size (cm) - Width 0 -Post Debridement Size (cm) - Depth 0 -Total Square Cm 0 -Wound/Ulcer Outcome Healed- Epithelialized Pain Scale: 0-10 Numeric Is Patient Pain Free? Yes Yes Wound debrided: Left breast tzone Laterality: Left Type of Debridement: Excisional debridement Anesthesia Used: 5% Lidocaine Gel Depth: Down to and including healthy tissue, in the subcutaneous layer Percentage of wound debrided: 100 Instrument Used: 3mm curette Tissue Removed: subcutaneous tissue and slough Severity: Limited To Skin Breakdown Amount of bleeding with debridement: Mild Bleeding Controlled with: Pressure Patient tolerated procedure well Assessment/Plan Assessment: 1. Nonhealing ulcers bilateral breasts at Tzone. 2. Ulcer right nipple areola, healed. 3. Bilateral macromastia. 4. s/p bilateral breast reduction mammaplasty. 5. Smoker. 6. Diabetes mellitus. Plan: The right nipple ulcer remains healed. The right Tzone remains healed after Thera-skin #5. Will stop the SNAP VAC and start moistened silver to the left Tzone ulcer. She is having increased pain at the left Tzone area. Wound culture on 11/18/2019 was positive for MRSA, Corynebacterium striatum, Strepsalivarius sp. salvarius and Actinomyces Odontolyticus. She will continue the Doxycycline that she is one and added Clindamycin and Flagyl to cover all of the organisms. She has been taking her Doxycycline for her positive wound culture from 10/07/19 which was positive for MRSA and Corynebacterium striatum from her right breast Tzone wound. Prealbumin from 06/22/19 was 17.8. Encouraged nutritional supplementation with protein to help the healing process. The right breast is healed. Encouraged her massage the area daily to help soften scarring. The left breast ulcer is improving, but there is a persistent area of undermining that the SNAP VAC is trying to heal. Recommended to the patient to proceed with surgical preparation of the left breast ulcer which includes unroofing the area of undermining with skin grafting. Patient is interested in further surgery for wound closure. Will schedule under general anesthesia on an outpatient basis. Patient was informed of the risks and complications of the procedure including alternatives to surgery. These were discussed with her personally. She voices understanding and wishes to proceed. Renewed Percocet (21 tabs) for pain, PDMP reviewed. Follow up one week. Encouraged patient to stop smoking as it may have deleterious effects on wound healing. Code Visit 111xxx-113xx: [id number] Maricruz subq tissue 20 sq cm/<
[2019-12-02 11:13] VITALS: BP 136/80; PULSE 95; RESP 16; TEMP 36.6; BMI 30.9
--- NOTE | 2019-12-02 18:19 | PCM.WC.PN ---
Type of Wound Date of Service: 12/02/19 Chief Complaint: Nonhealing ulcer left breast at [facility]. History of Wound: Surgery 06/21/19 - Bilateral breast reduction mammaplasty. She was admitted to hospital on 07/05/19 with elevated WBC and comprosed wound healing. On 07/08/19 the right breast eschar was debrided in the hospital to make wound care easier and to drain infection. Wound VAC was started along with PICC line placement and Ceftriaxone IV antibiotics. Wound culture from 07/08/19 was positive for Proteus mirabilis, Enterococcus faecalis and MRSE. Augmentin and Doxycycline were added and she has finished them. On 07/22/19, there was wound breakdown on the left breast at the [facility]. Debridement was done and a wound culture showed MRSE and Corynebacterium amycolatum. During her IV antibiotics, the Creatinine increased to 1.32 on 08/12/19. The Ceftriaxone was stopped. The following week on 08/18/19 the Creatinine improved to normal at 0.98. Repeat wound culture on 10/07/19 showed MRSA and Corynebacterium striatum. She was placed on Doxycycline and finished them. There was another wound culture on 11/18/19. It showed MRSA, Corynebacterium striatum, Strep salvarius, and Actinomyces odontolyticus. She was placed on Doxycycline, Cleocin, and Flagyl. Wound care - Silver. Today she denies fever. She states her appetite is ok. She is scheduled for operative debridement and skin grafting to the left breast this , 12/05/19. Progress of Wound: The right Tzone ulcer remains healed and the left Tzone ulcer is much improved. - Physical Exam Vital Signs Temp Pulse Resp BP 97.8 F 95 16 136/80 H 12/02/19 11:13 12/02/19 11:13 12/02/19 11:13 12/02/19 11:13 Wound Measurements and Assessment WC - Nurse 1 - General Ulcer Measurement Start: 11/18/19 11:21 Freq: Status: Active Protocol: Activity Type Activity Date Activity User E-Sign Co-Sign Detail Recorded Client Recorded Date Recorded By Document 12/02/19 11:13 [facility] [id number] 12/02/19 11:21 BM 12/02/19 11:13 Wound Center Nurse 1 [Ulcer Assessment] #3 left breast incision -Combined with other wound No -Current Size (cm) - Length 0.1 -Current Size (cm) - Width 0.1 -Current Size (cm) - Depth 0.1 -Total Square Cm 0.01 -Photo Taken No -Epithelialization Large 67-100% -Tunneling No -Undermining/Tunneling No -Circular Undermining No -Exudate Amt Small -Exudate Type Serous -Wound Margin Distinct, Outline Attached -Granulation Amt Small (1-33%) -Granulation Quality Red -Slough/Fibrin Yes -Necrosis Amt Small (1-33%) -Necrotic Tissue Type Adherent Slough -Texture (Flavia-wound Skin Appearance) Assessed, Scarring -Moisture (Flavia-wound Skin Appearance Assessed ) -Color (Flavia-wound Skin Appearance) Assessed -Temperature (Flavia-wound Skin No Abnormality Appearance) (Pt Warm) -Tenderness on Palpation (Flavia-wound No Skin Appearance) -Ulcer Cleansing Rinsed/ Irrigated with Saline WC - Nurse 2 - General Ulcer CM Notes Start: 11/18/19 11:21 Freq: Status: Active Protocol: Activity Type Activity Date Activity User E-Sign Co-Sign Detail Recorded Client Recorded Date Recorded By Document 12/02/19 11:52 [id number] 12/02/19 11:53 12/02/19 11:52 Wound Center Nurse 2 [Procedure/Treatment] -Time 11:52 -Correct Patient Yes -Correct Side, Site, Position Yes -Correct Procedure Yes -Procedure Performed Yes -Type of Procedure Debridement -Clinical Debridement Subcutaneous -Post Debridement Size (cm) - Length 0.4 -Post Debridement Size (cm) - Width 0.3 -Post Debridement Size (cm) - Depth 0.1 -Total Square Cm 0.12 -Wound/Ulcer Outcome Not Healed -Ulcer Cleansing Rinsed/ Irrigated with Saline -Foul Odor after Cleansing No -Bioengineered Tissue No -Bleeding Controlled with Pressure -Offloading No -Treatment Response Procedure Tolerated Well [See Physician Procedure note for Specifics] Pain Scale: 0-10 Numeric [Pain] -Is Patient Pain Free? Yes Debridement Note Post-Debridement Measurements/Treatment WC - Nurse 2 - General Ulcer CM Notes Start: 11/18/19 11:21 Freq: Status: Active Protocol: Activity Type Activity Date Activity User E-Sign Co-Sign Detail Recorded Client Recorded Date Recorded By Document 11/18/19 11:54 [id number] 11/18/19 11:55 Document 11/25/19 11:45 [id number] 11/25/19 11:49 Document 12/02/19 11:52 [id number] 12/02/19 11:53 11/18/19 11/25/19 12/02/19 11:54 11:45 11:52 Wound Center Nurse 2 #3 left breast incision -Time 11:54 11:47 11:52 -Correct Patient Yes Yes Yes -Correct Side, Site, Position Yes Yes Yes -Correct Procedure Yes Yes Yes -Procedure Performed Yes Yes Yes -Type of Procedure Debridement Debridement Debridement -Clinical Debridement Subcutaneous Subcutaneous Subcutaneous -Post Debridement Size (cm) - Length 1.5 1.0 0.4 -Post Debridement Size (cm) - Width 1.9 2.3 0.3 -Post Debridement Size (cm) - Depth 0.5 0.1 0.1 -Total Square Cm 2.85 2.30 0.12 -Wound/Ulcer Outcome Not Healed Not Healed Not Healed -Ulcer Cleansing Rinsed/ Rinsed/ Rinsed/ Irrigated with Irrigated with Irrigated with Saline Saline Saline -Foul Odor after Cleansing No No No -Bioengineered Tissue No No No -Bleeding Controlled with Pressure Pressure Pressure -Other tunnel 9:00---0 .4cm -Offloading No No No -Treatment Response Procedure Procedure Procedure Tolerated Well Tolerated Well Tolerated Well #2 right breast -Correct Patient No -Correct Side, Site, Position No -Correct Procedure No -Procedure Performed No -Post Debridement Size (cm) - Length 0 -Post Debridement Size (cm) - Width 0 -Post Debridement Size (cm) - Depth 0 -Total Square Cm 0 -Wound/Ulcer Outcome Healed- Epithelialized Pain Scale: 0-10 Numeric Is Patient Pain Free? Yes Yes Yes Wound debrided: #3 Left breast at [facility]. Laterality: Left Wound Grade/Stage: 2. Type of Debridement: Excisional debridement Anesthesia Used: 4% Lidocaine Solution Depth: Down to and including healthy tissue, in the subcutaneous layer Percentage of wound debrided: 100 Instrument Used: 3mm curette Tissue Removed: subcutaneous tissue. Severity: Fat Layer Exposed Amount of bleeding with debridement: Mild Bleeding Controlled with: Pressure Patient tolerated procedure well Assessment/Plan Assessment: 1. Nonhealing ulcer left breast at [facility]. 2. Ulcer right breast at Tzone, healed. 3. Bilateral macromastia. 4. s/p bilateral breast reduction mammaplasty. 5. Smoker. 6. MRSA. 7. Diabetes mellitus. Plan: The right nipple ulcer and right Tzone ulcer remain healed. The left breast at Tzone ulcer is almost healed. The undermined area has healed. Will stop the Silver and start Collagen Hydrogel dressing changes. Wound culture on 11/18/2019 was positive for MRSA, Corynebacterium striatum, Strepsalivarius sp. salvarius and Actinomyces Odontolyticus. She will continue the Doxycycline, Clindamycin and Flagyl. She has been taking her Doxycycline for her positive wound culture from 10/07/19 which was positive for MRSA and Corynebacterium striatum from her right breast Tzone wound. Prealbumin from 06/22/19 was 17.8. Encouraged nutritional supplementation with protein to help the healing process. Because of the undermining on the left breast, she was scheduled for surgery this , 12/05/19 for operative debridement and skin grafting. Since the ulcer on the left is almost healed, will cancel the surgery later this week. Followup one week. Encouraged patient to stop smoking as it may have deleterious effects on wound healing. Code Visit [id number]: [id number] Maricruz subq tissue 20 sq cm/< - ICD-10 - L98.492, T14.8xxA, N62, E11.9, F17.200, A49.02
[2019-12-09 11:28] VITALS: BP 99/73; PULSE 124; RESP 18; TEMP 35.6; BMI 30.9
--- NOTE | 2019-12-09 13:13 | PCM.WC.PN ---
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 Status: Chronic Code(s): L98.492 - Non-pressure chronic ulcer of skin of other sites with fat layer exposed Comment: nonhealing ulcers bilateral breasts at [facility] (2) MRSA (methicillin resistant Staphylococcus aureus) infection Status: Chronic Code(s): A49.02 - Methicillin resistant Staphylococcus aureus infection, unspecified site (3) Smoker Status: Chronic Code(s): F17.200 - Nicotine dependence, unspecified, uncomplicated Type of Wound Date of Service: 12/09/19 Chief Complaint: Nonhealing ulcer left breast at [facility]. History of Wound: Surgery 06/21/19 - Bilateral breast reduction mammaplasty. She was admitted to hospital on 07/05/19 with elevated WBC and comprosed wound healing. On 07/08/19 the right breast eschar was debrided in the hospital to make wound care easier and to drain infection. Wound VAC was started along with PICC line placement and Ceftriaxone IV antibiotics. Wound culture from 07/08/19 was positive for Proteus mirabilis, Enterococcus faecalis and MRSE. Augmentin and Doxycycline were added and she has finished them. On 07/22/19, there was wound breakdown on the left breast at the [facility]. Debridement was done and a wound culture showed MRSE and Corynebacterium amycolatum. During her IV antibiotics, the Creatinine increased to 1.32 on 08/12/19. The Ceftriaxone was stopped. The following week on 08/18/19 the Creatinine improved to normal at 0.98. Repeat wound culture on 10/07/19 showed MRSA and Corynebacterium striatum. She was placed on Doxycycline and finished them. There was another wound culture on 11/18/19. It showed MRSA, Corynebacterium striatum, Strep salvarius, and Actinomyces odontolyticus. She was placed on Doxycycline, Cleocin, and Flagyl. Wound care - Collagen hydrogel with adaptic. She is complaining of increased pain in her left breast which she states usually means she has an infection. Cultured the left breast opened area today. Today she denies fever. She states her appetite is ok. Progress of Wound: The right Tzone ulcer remains healed and the left Tzone ulcer is improved. - Physical Exam Vital Signs Temp Pulse Resp BP 96.0 F L 124 H 18 99/73 12/09/19 11:28 12/09/19 11:28 12/09/19 11:28 12/09/19 11:28 General: Alert, Oriented x3 HEENT: Atraumatic Oral: Moist Mucosa Lungs: Normal air movement Cardiovascular: Regular rate Abdomen: Non Tender Extremities: Capillary Refill Less than 3 Seconds Skin: Ulcer/ Wound - left breast tzone ulcer Wound Measurements and Assessment WC - Nurse 1 - General Ulcer Measurement Start: 11/18/19 11:21 Freq: Status: Active Protocol: Activity Type Activity Date Activity User E-Sign Co-Sign Detail Recorded Client Recorded Date Recorded By Document 12/09/19 11:28 MW [id number] 12/09/19 11:37 MW 12/09/19 11:28 Wound Center Nurse 1 [Ulcer Assessment] #3 left breast incision -Combined with other wound No -Current Size (cm) - Length 0.5 -Current Size (cm) - Width 0.6 -Current Size (cm) - Depth 0.2 -Total Square Cm 0.30 -Date of Last Picture (Recall this 12/09/19 field) -Photo Taken Yes -Epithelialization None Present -Tunneling No -Undermining/Tunneling No -Circular Undermining No -Exudate Amt Small -Exudate Type Yellow/Green -Wound Margin Thickened -Granulation Amt None Present (0 %) -Granulation Quality N/A -Slough/Fibrin Yes -Necrosis Amt Large (67-100%) -Necrotic Tissue Type Adherent Slough -Structure Exposed N/A -Texture (Flavia-wound Skin Appearance) Assessed, Localized Edema ,Scarring -Moisture (Flavia-wound Skin Appearance No Abnormality, ) Assessed -Color (Flavia-wound Skin Appearance) No Abnormality, Assessed -Temperature (Flavia-wound Skin No Abnormality Appearance) (Pt Warm) -Tenderness on Palpation (Flavia-wound No Skin Appearance) -Ulcer Cleansing Rinsed/ Irrigated with Saline -Foul Odor after Cleansing No -Anesthetic Used 5% Lidocaine Gel [Edema Assessment] -Lower Limb Edema Present No WC - Nurse 2 - General Ulcer CM Notes Start: 11/18/19 11:21 Freq: Status: Active Protocol: Activity Type Activity Date Activity User E-Sign Co-Sign Detail Recorded Client Recorded Date Recorded By Document 12/09/19 11:55 JF [id number] 12/09/19 12:03 JF 02/24/20 11:55 Wound Center Nurse 2 [Procedure/Treatment] 6-left medial breast -Time 12:03 -Correct Patient Yes -Correct Side, Site, Position Yes -Correct Procedure Yes -Procedure Performed Yes -Type of Procedure Debridement -Clinical Debridement Subcutaneous -Post Debridement Size (cm) - Length 0.5 -Post Debridement Size (cm) - Width 0.6 -Post Debridement Size (cm) - Depth 0.5 -Total Square Cm 0.30 -Wound/Ulcer Outcome Not Healed -Ulcer Cleansing Rinsed/ Irrigated with Saline -Foul Odor after Cleansing No -Bioengineered Tissue No -Bleeding Controlled with Pressure -Offloading No -Treatment Response Procedure Tolerated Well #3 left breast incision -Time 11:56 -Correct Patient No -Correct Side, Site, Position No -Correct Procedure No -Procedure Performed No -Type of Procedure Debridement -Clinical Debridement Subcutaneous -Post Debridement Size (cm) - Length 0 -Post Debridement Size (cm) - Width 0 -Post Debridement Size (cm) - Depth 0 -Total Square Cm 0 -Wound/Ulcer Outcome Healed- Epithelialized [See Physician Procedure note for Specifics] Pain Scale: 0-10 Numeric [Pain] -Is Patient Pain Free? Yes Musculoskeletal: Tenderness Neurological: Neuro grossly intact Psych/Mental Status: Normal Affect, Appropriate Debridement Note Post-Debridement Measurements/Treatment WC - Nurse 2 - General Ulcer CM Notes Start: 11/18/19 11:21 Freq: Status: Active Protocol: Activity Type Activity Date Activity User E-Sign Co-Sign Detail Recorded Client Recorded Date Recorded By Document 11/18/19 11:54 [id number] 11/18/19 11:55 Document 11/25/19 11:45 [id number] 11/25/19 11:49 Document 12/02/19 11:52 [id number] 12/02/19 11:53 Document 12/09/19 11:55 [id number] 12/09/19 12:03 11/18/19 11/25/19 12/02/19 11:54 11:45 11:52 Wound Center Nurse 2 6-left medial breast -Time -Correct Patient -Correct Side, Site, Position -Correct Procedure -Procedure Performed -Type of Procedure -Clinical Debridement -Post Debridement Size (cm) - Length -Post Debridement Size (cm) - Width -Post Debridement Size (cm) - Depth -Total Square Cm -Wound/Ulcer Outcome -Ulcer Cleansing -Foul Odor after Cleansing -Bioengineered Tissue -Bleeding Controlled with -Offloading -Treatment Response #3 left breast incision -Time 11:54 11:47 11:52 -Correct Patient Yes Yes Yes -Correct Side, Site, Position Yes Yes Yes -Correct Procedure Yes Yes Yes -Procedure Performed Yes Yes Yes -Type of Procedure Debridement Debridement Debridement -Clinical Debridement Subcutaneous Subcutaneous Subcutaneous -Post Debridement Size (cm) - Length 1.5 1.0 0.4 -Post Debridement Size (cm) - Width 1.9 2.3 0.3 -Post Debridement Size (cm) - Depth 0.5 0.1 0.1 -Total Square Cm 2.85 2.30 0.12 -Wound/Ulcer Outcome Not Healed Not Healed Not Healed -Ulcer Cleansing Rinsed/ Rinsed/ Rinsed/ Irrigated with Irrigated with Irrigated with Saline Saline Saline -Foul Odor after Cleansing No No No -Bioengineered Tissue No No No -Bleeding Controlled with Pressure Pressure Pressure -Other tunnel 9:00---0 .4cm -Offloading No No No -Treatment Response Procedure Procedure Procedure Tolerated Well Tolerated Well Tolerated Well #2 right breast -Correct Patient No -Correct Side, Site, Position No -Correct Procedure No -Procedure Performed No -Post Debridement Size (cm) - Length 0 -Post Debridement Size (cm) - Width 0 -Post Debridement Size (cm) - Depth 0 -Total Square Cm 0 -Wound/Ulcer Outcome Healed- Epithelialized Pain Scale: 0-10 Numeric Is Patient Pain Free? Yes Yes Yes 12/09/19 11:55 Wound Center Nurse 2 6-left medial breast -Time 12:03 -Correct Patient Yes -Correct Side, Site, Position Yes -Correct Procedure Yes -Procedure Performed Yes -Type of Procedure Debridement -Clinical Debridement Subcutaneous -Post Debridement Size (cm) - Length 0.5 -Post Debridement Size (cm) - Width 0.6 -Post Debridement Size (cm) - Depth 0.5 -Total Square Cm 0.30 -Wound/Ulcer Outcome Not Healed -Ulcer Cleansing Rinsed/ Irrigated with Saline -Foul Odor after Cleansing No -Bioengineered Tissue No -Bleeding Controlled with Pressure -Offloading No -Treatment Response Procedure Tolerated Well #3 left breast incision -Time 11:56 -Correct Patient No -Correct Side, Site, Position No -Correct Procedure No -Procedure Performed No -Type of Procedure Debridement -Clinical Debridement Subcutaneous -Post Debridement Size (cm) - Length 0 -Post Debridement Size (cm) - Width 0 -Post Debridement Size (cm) - Depth 0 -Total Square Cm 0 -Wound/Ulcer Outcome Healed- Epithelialized -Ulcer Cleansing -Foul Odor after Cleansing -Bioengineered Tissue -Bleeding Controlled with -Other -Offloading -Treatment Response #2 right breast -Correct Patient -Correct Side, Site, Position -Correct Procedure -Procedure Performed -Post Debridement Size (cm) - Length -Post Debridement Size (cm) - Width -Post Debridement Size (cm) - Depth -Total Square Cm -Wound/Ulcer Outcome Pain Scale: 0-10 Numeric Is Patient Pain Free? Yes Wound debrided: breast Laterality: Left Type of Debridement: Excisional debridement Anesthesia Used: 5% Lidocaine Gel Depth: Down to and including healthy tissue, in the subcutaneous layer Percentage of wound debrided: 100 Instrument Used: 3mm curette Tissue Removed: subcutaneous tissue and slough Severity: Limited To Skin Breakdown Amount of bleeding with debridement: Mild Bleeding Controlled with: Pressure Patient tolerated procedure well Assessment/Plan Assessment: 1. 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 2. Ulcer right breast at Tzone, healed. 3. Bilateral macromastia. 4. s/p bilateral breast reduction mammaplasty. 5. Smoker. 6. MRSA. 7. Diabetes mellitus. Plan: The right nipple ulcer and right Tzone ulcer remain healed. The left breast at Tzone ulcer is almost healed. Will continue Collagen Hydrogel dressing changes, covered by adaptic. She is complaining of increased pain of her left breast today. Will do a wound culture. Depending on the results, it may necessitate treatment with antibiotics. Wound culture on 11/18/2019 was positive for MRSA, Corynebacterium striatum, Strepsalivarius sp. salvarius and Actinomyces Odontolyticus. She will continue the Doxycycline, Clindamycin and Flagyl. She has been taking her Doxycycline for her positive wound culture from 10/07/19 which was positive for MRSA and Corynebacterium striatum from her right breast Tzone wound. Prealbumin from 06/22/19 was 17.8. Encouraged nutritional supplementation with protein to help the healing process. Followup one week. Encouraged patient to stop smoking as it may have deleterious effects on wound healing. Code Visit [id number]: [id number] Maricruz subq tissue 20 sq cm/<
== END 2019-12-14 23:59 ==
LOC: WC 11:15
PROVIDERS: Family Provider Family Medicine; PCP Family Medicine; Referring Provider Nurse Practitioner Family; Visit Provider Nurse Practitioner Family
DX: T81.31XA Disruption of external operation (surgical) wound, not elsewhere classified, initial encounter (principal); Y83.8 Other surgical procedures as the cause of abnormal reaction of the patient, or of later complication, without mention of misadventure at the time of the procedure; N62 Hypertrophy of breast; E11.9 Type 2 diabetes mellitus without complications; T81.89XA Other complications of procedures, not elsewhere classified, initial encounter; F17.200 Nicotine dependence, unspecified, uncomplicated; Z86.14 Personal history of Methicillin resistant Staphylococcus aureus infection
CPT/HCPCS: 11042; 87070; 87075; 87077; 87186; 87205; 97607

== ENCOUNTER → 2020-01-03 11:41 | Outpatient (CLI) | payer MEDICARE, MEDICAID, SELFPAY ==
[2019-11-11 08:33] VITALS: BMI 30.9
[2019-12-30 10:58] VITALS: BMI 30.9
== END ==
PROVIDERS: PCP Family Medicine; Referring Provider Surgery; Visit Provider Surgery
DX: Z00.00 Encounter for general adult medical examination without abnormal findings (principal)

== ENCOUNTER 2020-01-13 14:00 | Outpatient (RCR) | payer MEDICARE, MEDICAID, SELFPAY ==
[2019-12-15 00:33] VITALS: BP 99/73; PULSE 124; RESP 18; TEMP 35.6
[2019-12-16 11:22] VITALS: BP 115/73; PULSE 129; RESP 18; TEMP 36.3; BMI 30.9
--- NOTE | 2019-12-16 16:21 | PCM.WC.PN ---
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 Status: Chronic Code(s): L98.492 - Non-pressure chronic ulcer of skin of other sites with fat layer exposed Comment: nonhealing ulcers bilateral breasts at [facility] (2) MRSA (methicillin resistant Staphylococcus aureus) infection Status: Chronic Code(s): A49.02 - Methicillin resistant Staphylococcus aureus infection, unspecified site (3) Type 2 diabetes mellitus Status: Chronic Code(s): E11.9 - Type 2 diabetes mellitus without complications (4) Smoker Status: Chronic Code(s): F17.200 - Nicotine dependence, unspecified, uncomplicated Type of Wound Date of Service: 12/16/19 Chief Complaint: Nonhealing ulcer left breast at [facility]. History of Wound: Surgery 06/21/19 - Bilateral breast reduction mammaplasty. She was admitted to hospital on 07/05/19 with elevated WBC and comprosed wound healing. On 07/08/19 the right breast eschar was debrided in the hospital to make wound care easier and to drain infection. Wound VAC was started along with PICC line placement and Ceftriaxone IV antibiotics. Wound culture from 07/08/19 was positive for Proteus mirabilis, Enterococcus faecalis and MRSE. Augmentin and Doxycycline were added and she has finished them. On 07/22/19, there was wound breakdown on the left breast at the [facility]. Debridement was done and a wound culture showed MRSE and Corynebacterium amycolatum. During her IV antibiotics, the Creatinine increased to 1.32 on 08/12/19. The Ceftriaxone was stopped. The following week on 08/18/19 the Creatinine improved to normal at 0.98. Repeat wound culture on 10/07/19 showed MRSA and Corynebacterium striatum. She was placed on Doxycycline and finished them. There was another wound culture on 11/18/19. It showed MRSA, Corynebacterium striatum, Strep salvarius, and Actinomyces odontolyticus. She was placed on Doxycycline, Cleocin, and Flagyl. Wound culture done on 12/09/19 because she was having increased pain of left breast ulcer, cultures were negative for bacterial growth. Wound care - Collagen hydrogel to the left breast. Today she denies fever. She states her appetite is ok. Progress of Wound: The right Tzone ulcer remains healed and the left Tzone ulcer is much improved. - Physical Exam Vital Signs Temp Pulse Resp BP 97.3 F L 129 H 18 115/73 12/16/19 11:22 12/16/19 11:22 12/16/19 11:22 12/16/19 11:22 General: Alert, Oriented x3, Cooperative HEENT: Atraumatic Oral: Moist Mucosa Lungs: Normal air movement Cardiovascular: Regular rate Abdomen: Soft Extremities: Capillary Refill Less than 3 Seconds Skin: Ulcer/ Wound - left breast tzone Wound Measurements and Assessment WC - Nurse 1 - General Ulcer Measurement Start: 12/16/19 11:22 Freq: Status: Active Protocol: Activity Type Activity Date Activity User E-Sign Co-Sign Detail Recorded Client Recorded Date Recorded By Document 12/16/19 11:22 [email or web address] [id number] 12/16/19 11:30 DL 12/16/19 11:22 Wound Center Nurse 1 [Ulcer Assessment] 6-left medial breast -Current Size (cm) - Length 1 -Current Size (cm) - Width 1.4 -Current Size (cm) - Depth 0.1 -Total Square Cm 1.4 -Photo Taken No -Exudate Amt None Present -Wound Margin Flat & Intact -Granulation Amt Large (67-100%) -Granulation Quality [place] -Necrosis Amt None Present (0 %) -Structure Exposed N/A -Texture (Flavia-wound Skin Appearance) Scarring -Moisture (Flavia-wound Skin Appearance No Abnormality ) -Color (Flavia-wound Skin Appearance) No Abnormality -Temperature (Flavia-wound Skin No Abnormality Appearance) (Pt Warm) -Tenderness on Palpation (Flavia-wound No Skin Appearance) -Ulcer Cleansing Wound Cleanser -Foul Odor after Cleansing No -Anesthetic Used 5% Lidocaine Gel WC - Nurse 2 - General Ulcer CM Notes Start: 12/16/19 11:22 Freq: Status: Active Protocol: Activity Type Activity Date Activity User E-Sign Co-Sign Detail Recorded Client Recorded Date Recorded By Document 12/16/19 11:49 TAYLA [id number] 12/16/19 11:51 TAYLA 12/16/19 11:49 Wound Center Nurse 2 [Procedure/Treatment] -Time 11:50 -Correct Patient Yes -Correct Side, Site, Position Yes -Correct Procedure Yes -Procedure Performed Yes -Type of Procedure Debridement -Clinical Debridement Subcutaneous -Post Debridement Size (cm) - Length 0.3 -Post Debridement Size (cm) - Width 0.4 -Post Debridement Size (cm) - Depth 0.4 -Total Square Cm 0.12 -Wound/Ulcer Outcome Not Healed -Ulcer Cleansing Rinsed/ Irrigated with Saline -Foul Odor after Cleansing No -Bioengineered Tissue No -Bleeding Controlled with Pressure -Offloading No -Treatment Response Procedure Tolerated Well [See Physician Procedure note for Specifics] Pain Scale: 0-10 Numeric [Pain] -Is Patient Pain Free? Yes Musculoskeletal: No Tenderness to Palpation of Joints or Extremities Neurological: Neuro grossly intact Psych/Mental Status: Normal Affect, Appropriate Debridement Note Post-Debridement Measurements/Treatment WC - Nurse 2 - General Ulcer CM Notes Start: 12/16/19 11:22 Freq: Status: Active Protocol: Activity Type Activity Date Activity User E-Sign Co-Sign Detail Recorded Client Recorded Date Recorded By Document 12/16/19 11:49 TAYLA [id number] 12/16/19 11:51 TAYLA 12/16/19 11:49 Wound Center Nurse 2 6-left medial breast -Time 11:50 -Correct Patient Yes -Correct Side, Site, Position Yes -Correct Procedure Yes -Procedure Performed Yes -Type of Procedure Debridement -Clinical Debridement Subcutaneous -Post Debridement Size (cm) - Length 0.3 -Post Debridement Size (cm) - Width 0.4 -Post Debridement Size (cm) - Depth 0.4 -Total Square Cm 0.12 -Wound/Ulcer Outcome Not Healed -Ulcer Cleansing Rinsed/ Irrigated with Saline -Foul Odor after Cleansing No -Bioengineered Tissue No -Bleeding Controlled with Pressure -Offloading No -Treatment Response Procedure Tolerated Well Pain Scale: 0-10 Numeric Is Patient Pain Free? Yes Wound debrided: breast tzone Laterality: Left Type of Debridement: Excisional debridement Anesthesia Used: 5% Lidocaine Gel Depth: Down to and including healthy tissue, in the subcutaneous layer Percentage of wound debrided: 100 Instrument Used: 3mm curette Tissue Removed: Subcutaneous tissue and slough Severity: Limited To Skin Breakdown Amount of bleeding with debridement: Mild Bleeding Controlled with: Pressure Patient tolerated procedure well Assessment/Plan Assessment: 1. 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 2. Ulcer right breast at Tzone, healed. 3. Bilateral macromastia. 4. s/p bilateral breast reduction mammaplasty. 5. Smoker. 6. MRSA. 7. Diabetes mellitus. Plan: The right nipple ulcer and right Tzone ulcer remain healed. The left breast at Tzone ulcer is almost healed. The undermined area has healed. Wound care- daily Collagen Hydrogel dressing changes. Wound culture on 12/09/19 was negative for bacterial growth. Culture was done because patient was having increased pain. Wound culture on 11/18/2019 was positive for MRSA, Corynebacterium striatum, Strepsalivarius sp. salvarius and Actinomyces Odontolyticus. She will continue the Doxycycline, Clindamycin and Flagyl. She has been taking her Doxycycline for her positive wound culture from 10/07/19 which was positive for MRSA and Corynebacterium striatum from her right breast Tzone wound. Prealbumin from 06/22/19 was 17.8. Encouraged nutritional supplementation with protein to help the healing process. Followup one week. Encouraged patient to stop smoking as it may have deleterious effects on wound healing. [id number]: [id number] [place] subq tissue 20 sq cm/<
[2019-12-23 10:22] VITALS: BP 116/88; PULSE 117; RESP 18; TEMP 36.3; BMI 30.9
--- NOTE | 2019-12-23 11:04 | PN.PCM_ITS ---
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 Status: Chronic Current Visit: Yes Code(s): L98.492 - Non-pressure chronic ulcer of skin of other sites with fat layer exposed Comment: nonhealing ulcers bilateral breasts at [facility] (2) MRSA (methicillin resistant Staphylococcus aureus) infection Status: Chronic Current Visit: Yes Code(s): A49.02 - Methicillin resistant Staphylococcus aureus infection, unspecified site (3) Type 2 diabetes mellitus Status: Chronic Current Visit: Yes Code(s): E11.9 - Type 2 diabetes mellitus without complications (4) Smoker Status: Chronic Current Visit: Yes Code(s): F17.200 - Nicotine dependence, unspecified, uncomplicated Type of Wound Date of Service: 12/23/19 Chief Complaint: Nonhealing ulcer left breast at [facility]. History of Wound: Surgery 06/21/19 - Bilateral breast reduction mammaplasty. She was admitted to hospital on 07/05/19 with elevated WBC and comprosed wound healing. On 07/08/19 the right breast eschar was debrided in the hospital to make wound care easier and to drain infection. Wound VAC was started along with PICC line placement and Ceftriaxone IV antibiotics. Wound culture from 07/08/19 was positive for Proteus mirabilis, Enterococcus faecalis and MRSE. Augmentin and Doxycycline were added and she has finished them. On 07/22/19, there was wound breakdown on the left breast at the [facility]. Debridement was done and a wound culture showed MRSE and Corynebacterium amycolatum. During her IV antibiotics, the Creatinine increased to 1.32 on 08/12/19. The Ceftriaxone was stopped. The following week on 08/18/19 the Creatinine improved to normal at 0.98. Repeat wound culture on 10/07/19 showed MRSA and Corynebacterium striat um. She was placed on Doxycycline and finished them. There was another wound culture on 11/18/19. It showed MRSA, Corynebacterium striatum, Strep salvarius, and Actinomyces odontolyticus. She was placed on Doxycycline, Cleocin, and Flagyl. Wound culture done on 12/09/19 because she was having increased pain of left breast ulcer, cultures were negative for bacterial growth. Wound care -we will stop the collagen hydrogel to the left breast and start moistened silver covered with Adaptic. Obtained a wound culture today since there was an increase in her wound size. Today she denies fever. She states her appetite is ok. Progress of Wound: The right Tzone ulcer remains healed and the left Tzone ulcer is larger this week - Physical Exam Vital Signs Temp Pulse Resp BP 97.4 F L 117 H 18 116/88 H 12/23/19 10:22 12/23/19 10:22 12/23/19 10:22 12/23/19 10:22 General: Alert, Oriented x3 HEENT: Atraumatic Oral: Moist Mucosa Lungs: Normal air movement Cardiovascular: Regular rate Abdomen: Soft Extremities: Capillary Refill Less than 3 Seconds Skin: Ulcer/ Wound - Left breast T-zone ulcer larger this week Wound Measurements and Assessment WC - Nurse 1 - General Ulcer Measurement Start: 12/16/19 11:22 Freq: Status: Active Protocol: Activity Type Activity Date Activity User E-Sign Co-Sign Detail Recorded Client Recorded Date Recorded By Document 12/23/19 10:22 [facility] [id number] 12/23/19 10:26 [facility] 12/23/19 10:22 Wound Center Nurse 1 [Ulcer Assessment] 6-left medial breast -Combined with other wound No -Current Size (cm) - Length 1.7 -Current Size (cm) - Width 2.9 -Current Size (cm) - Depth 0.1 -Total Square Cm 4.93 -Photo Taken No -Epithelialization None Present -Tunneling No -Undermining/Tunneling No -Circular Undermining No -Exudate Amt Small -Exudate Type Serosanguineous -Wound Margin Distinct, Outline Attached -Granulation Amt Large (67-100%) -Granulation Quality Red -Slough/Fibrin No -Necrosis Amt None Present (0 %) -Texture (Flavia-wound Skin Appearance) Assessed, Scarring -Moisture (Flavia-wound Skin Appearance Assessed ) -Color (Flavia-wound Skin Appearance) Assessed -Temperature (Flavia-wound Skin No Abnormality Appearance) (Pt Warm) -Tenderness on Palpation (Flavia-wound No Skin Appearance) -Ulcer Cleansing Rinsed/ Irrigated with Saline -Foul Odor after Cleansing No -Anesthetic Used 5% Lidocaine Gel WC - Nurse 2 - General Ulcer CM Notes Start: 12/16/19 11:22 Freq: Status: Active Protocol: Activity Type Activity Date Activity User E-Sign Co-Sign Detail Recorded Client Recorded Date Recorded By Document 12/23/19 10:51 [id number] 12/23/19 10:56 12/23/19 10:51 Wound Center Nurse 2 [Procedure/Treatment] -Time 10:55 -Correct Patient Yes -Correct Side, Site, Position Yes -Correct Procedure Yes -Procedure Performed Yes -Type of Procedure Debridement -Clinical Debridement Subcutaneous -Post Debridement Size (cm) - Length 1.5 -Post Debridement Size (cm) - Width 2.8 -Post Debridement Size (cm) - Depth 0.2 -Total Square Cm 4.20 -Wound/Ulcer Outcome Not Healed -Ulcer Cleansing Rinsed/ Irrigated with Saline -Foul Odor after Cleansing No -Bioengineered Tissue No -Bleeding Controlled with Pressure -Offloading No -Treatment Response Procedure Tolerated Well [See Physician Procedure note for Specifics] Pain Scale: 0-10 Numeric [Pain] -Is Patient Pain Free? Yes Musculoskeletal: No Tenderness to Palpation of Joints or Extremities Neurological: Neuro grossly intact Psych/Mental Status: Normal Affect, Appropriate Debridement Note Post-Debridement Measurements/Treatment - Nurse 2 - General Ulcer CM Notes Start: 12/16/19 11:22 Freq: Status: Active Protocol: Activity Type Activity Date Activity User E-Sign Co-Sign Detail Recorded Client Recorded Date Recorded By Document 12/16/19 11:49 [id number] 12/16/19 11:51 Document 12/23/19 10:51 [id number] 12/23/19 10:56 12/16/19 12/23/19 11:49 10:51 Wound Center Nurse 2 6-left medial breast -Time 11:50 10:55 -Correct Patient Yes Yes -Correct Side, Site, Position Yes Yes -Correct Procedure Yes Yes -Procedure Performed Yes Yes -Type of Procedure Debridement Debridement -Clinical Debridement Subcutaneous Subcutaneous -Post Debridement Size (cm) - Length 0.3 1.5 -Post Debridement Size (cm) - Width 0.4 2.8 -Post Debridement Size (cm) - Depth 0.4 0.2 -Total Square Cm 0.12 4.20 -Wound/Ulcer Outcome Not Healed Not Healed -Ulcer Cleansing Rinsed/ Rinsed/ Irrigated with Irrigated with Saline Saline -Foul Odor after Cleansing No No -Bioengineered Tissue No No -Bleeding Controlled with Pressure Pressure -Offloading No No -Treatment Response Procedure Procedure Tolerated Well Tolerated Well Pain Scale: 0-10 Numeric Is Patient Pain Free? Yes Yes Wound debrided: Breast T-zone Laterality: Left Type of Debridement: Excisional debridement Anesthesia Used: 5% Lidocaine Gel Depth: Down to and including healthy tissue, in the subcutaneous layer, to muscle Percentage of wound debrided: 100 Instrument Used: 5mm curette Tissue Removed: Subcutaneous tissue and slough Severity: Fat Layer Exposed Amount of bleeding with debridement: Mild Bleeding Controlled with: Pressure Patient tolerated procedure well Assessment/Plan Active Problems MRSA (methicillin resistant Staphylococcus aureus) infection (Chronic) Chronic skin ulcer with fat layer exposed (Chronic) nonhealing ulcers bilateral breasts at [facility] Type 2 diabetes mellitus (Chronic) Smoker (Chronic) Assessment: 1. Nonhealing ulcer left breast at [facility]. 2. Ulcer right breast at [facility], healed. 3. Bilateral macromastia. 4. s/p bilateral breast reduction mammaplasty. 5. Smoker. 6. MRSA. 7. Diabetes mellitus. Plan: The right nipple ulcer and right Tzone ulcer remain healed. The left breast at [facility] ulcer is larger this week. Obtain wound culture due to the increase in size of the ulcer. Wound care-stop daily Collagen Hydrogel dressing changes start moisten silver covered byAdaptic. Wound culture on 12/09/19 was negative for bacterial growth. Culture was done because patient was having increased pain. Wound culture on 11/18/2019 was positive for MRSA, Corynebacterium striatum, Strepsalivarius sp. salvarius and Actinomyces Odontolyticus. She will continue the Doxycycline, Clindamycin and Flagyl. She has been taking her Doxycycline for her positive wound culture from 10/07/19 which was positive for MRSA and Corynebacterium striatum from her right breast Tzone wound. Prealbumin from 06/22/19 was 17.8. Encouraged nutritional vargas pplementation with protein to help the healing process. Followup one week. Encouraged patient to stop smoking as it may have deleterious effects on wound healing. [id number]: [id number] Maricruz subq tissue 20 sq cm/<
[2019-12-30 10:58] VITALS: BP 105/65; PULSE 100; RESP 16; TEMP 36.7; BMI 30.9
--- NOTE | 2019-12-30 14:27 | PCM.WC.PN ---
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 Status: Chronic Current Visit: Yes Code(s): L98.492 - Non-pressure chronic ulcer of skin of other sites with fat layer exposed Comment: nonhealing ulcers bilateral breasts at [facility] (2) MRSA (methicillin resistant Staphylococcus aureus) infection Status: Chronic Current Visit: Yes Code(s): A49.02 - Methicillin resistant Staphylococcus aureus infection, unspecified site (3) Type 2 diabetes mellitus Status: Chronic Current Visit: Yes Code(s): E11.9 - Type 2 diabetes mellitus without complications (4) Smoker Status: Chronic Current Visit: Yes Code(s): F17.200 - Nicotine dependence, unspecified, uncomplicated Type of Wound Date of Service: 12/30/19 Chief Complaint: Nonhealing ulcer left breast at [facility]. History of Wound: Surgery 06/21/19 - Bilateral breast reduction mammaplasty. She was admitted to hospital on 07/05/19 with elevated WBC and comprosed wound healing. On 07/08/19 the right breast eschar was debrided in the hospital to make wound care easier and to drain infection. Wound VAC was started along with PICC line placement and Ceftriaxone IV antibiotics. Wound culture from 07/08/19 was positive for Proteus mirabilis, Enterococcus faecalis and MRSE. Augmentin and Doxycycline were added and she has finished them. On 07/22/19, there was wound breakdown on the left breast at the [facility]. Debridement was done and a wound culture showed MRSE and Corynebacterium amycolatum. During her IV antibiotics, the Creatinine increased to 1.32 on 08/12/19. The Ceftriaxone was stopped. The following week on 08/18/19 the Creatinine improved to normal at 0.98. Repeat wound culture on 10/07/19 showed MRSA and Corynebacterium striatum. She was placed on Doxycycline and finished them. There was another wound culture on 11/18/19. It showed MRSA, Corynebacterium striatum, Strep salvarius, and Actinomyces odontolyticus. She was placed on Doxycycline, Cleocin, and Flagyl. Wound culture done on 12/09/19 because she was having increased pain of left breast ulcer, cultures were negative for bacterial growth. Wound care -The left breast [facility] will place silver to the tunnel (which reoccured since last visit) and moistened silver covered with Adaptic to the wound. Obtained a wound culture 12/23/19 was negative for bacterial growth, it was done because there was an increase in her wound size and pain. Today she denies fever. She states her appetite is ok. Progress of Wound: The left Tzone has started to tunnel again and remains the same size as last week. The right zone remains healed. - Physical Exam Vital Signs Temp Pulse Resp BP 98.1 F 100 16 105/65 12/30/19 10:58 12/30/19 10:58 12/30/19 10:58 12/30/19 10:58 General: Alert, Oriented x3 HEENT: Atraumatic Oral: Moist Mucosa Lungs: Normal air movement Cardiovascular: Regular rate Extremities: Capillary Refill Less than 3 Seconds Skin: Ulcer/ Wound - Left tzone ulcer now has a tunneled area. Wound Measurements and Assessment WC - Nurse 1 - General Ulcer Measurement Start: 12/16/19 11:22 Freq: Status: Active Protocol: Activity Type Activity Date Activity User E-Sign Co-Sign Detail Recorded Client Recorded Date Recorded By Document 12/30/19 10:58 [facility] [id number] 12/30/19 11:05 [facility] 12/30/19 10:58 Wound Center Nurse 1 [Ulcer Assessment] 6-left medial breast -Combined with other wound No -Current Size (cm) - Length 1.7 -Current Size (cm) - Width 2.9 -Current Size (cm) - Depth 0.2 -Total Square Cm 4.93 -Photo Taken No -Epithelialization None Present -Tunneling Yes -Tunneling Position (O'clock) 11 -Tunneling Distance (cm) 1.7 -Undermining/Tunneling No -Circular Undermining No -Exudate Amt Small -Exudate Type Yellow/Green -Wound Margin Distinct, Outline Attached -Granulation Amt Medium (34-66%) -Granulation Quality Red -Slough/Fibrin Yes -Necrosis Amt Small (1-33%) -Necrotic Tissue Type Adherent Slough -Texture (Flavia-wound Skin Appearance) Assessed, Scarring -Moisture (Flavia-wound Skin Appearance Assessed ) -Color (Flavia-wound Skin Appearance) Assessed -Temperature (Flavia-wound Skin No Abnormality Appearance) (Pt Warm) -Tenderness on Palpation (Flavia-wound Yes Skin Appearance) -Ulcer Cleansing Rinsed/ Irrigated with Saline -Foul Odor after Cleansing No -Anesthetic Used 5% Lidocaine Gel - Nurse 2 - General Ulcer CM Notes Start: 12/16/19 11:22 Freq: Status: Active Protocol: Activity Type Activity Date Activity User E-Sign Co-Sign Detail Recorded Client Recorded Date Recorded By Document 12/30/19 13:12 [id number] 12/30/19 13:13 12/30/19 13:12 Wound Center Nurse 2 [Procedure/Treatment] -Time 13:12 -Correct Patient Yes -Correct Side, Site, Position Yes -Correct Procedure Yes -Procedure Performed Yes -Type of Procedure Debridement -Clinical Debridement Subcutaneous -Post Debridement Size (cm) - Length 1.5 -Post Debridement Size (cm) - Width 3.0 -Post Debridement Size (cm) - Depth 0.3 -Total Square Cm 4.50 -Wound/Ulcer Outcome Not Healed -Ulcer Cleansing Rinsed/ Irrigated with Saline -Foul Odor after Cleansing No -Bioengineered Tissue No -Bleeding Controlled with Pressure -Other TUNNEL: 1.7CM AT 11:00 -Offloading No -Treatment Response Procedure Tolerated Well [See Physician Procedure note for Specifics] Pain Scale: 0-10 Numeric [Pain] -Is Patient Pain Free? Yes Musculoskeletal: No Tenderness to Palpation of Joints or Extremities Neurological: Neuro grossly intact Psych/Mental Status: Normal Affect, Appropriate Debridement Note Post-Debridement Measurements/Treatment - Nurse 2 - General Ulcer CM Notes Start: 12/16/19 11:22 Freq: Status: Active Protocol: Activity Type Activity Date Activity User E-Sign Co-Sign Detail Recorded Client Recorded Date Recorded By Document 12/16/19 11:49 [id number] 12/16/19 11:51 Document 12/23/19 10:51 [id number] 12/23/19 10:56 Document 12/30/19 13:12 [id number] 12/30/19 13:13 12/16/19 12/23/19 12/30/19 11:49 10:51 13:12 Wound Center Nurse 2 6-left medial breast -Time 11:50 10:55 13:12 -Correct Patient Yes Yes Yes -Correct Side, Site, Position Yes Yes Yes -Correct Procedure Yes Yes Yes -Procedure Performed Yes Yes Yes -Type of Procedure Debridement Debridement Debridement -Clinical Debridement Subcutaneous Subcutaneous Subcutaneous -Post Debridement Size (cm) - Length 0.3 1.5 1.5 -Post Debridement Size (cm) - Width 0.4 2.8 3.0 -Post Debridement Size (cm) - Depth 0.4 0.2 0.3 -Total Square Cm 0.12 4.20 4.50 -Wound/Ulcer Outcome Not Healed Not Healed Not Healed -Ulcer Cleansing Rinsed/ Rinsed/ Rinsed/ Irrigated with Irrigated with Irrigated with Saline Saline Saline -Foul Odor after Cleansing No No No -Bioengineered Tissue No No No -Bleeding Controlled with Pressure Pressure Pressure -Other TUNNEL: 1.7CM AT 11:00 -Offloading No No No -Treatment Response Procedure Procedure Procedure Tolerated Well Tolerated Well Tolerated Well Pain Scale: 0-10 Numeric Is Patient Pain Free? Yes Yes Yes Wound debrided: breast [facility] Laterality: Left Type of Debridement: Excisional debridement Anesthesia Used: 5% Lidocaine Gel Depth: Down to and including healthy tissue, in the subcutaneous layer Percentage of wound debrided: 100 Instrument Used: 3mm curette Tissue Removed: subcutaneous tissue and slough Severity: Fat Layer Exposed Amount of bleeding with debridement: Mild Bleeding Controlled with: Pressure Patient tolerated procedure well Assessment/Plan Active Problems MRSA (methicillin resistant Staphylococcus aureus) infection (Chronic) Chronic skin ulcer with fat layer exposed (Chronic) nonhealing ulcers bilateral breasts at [facility] Type 2 diabetes mellitus (Chronic) Smoker (Chronic) Assessment: 1. Nonhealing ulcer left breast at [facility]. 2. Ulcer right breast at [facility], healed. 3. Bilateral macromastia. 4. s/p bilateral breast reduction mammaplasty. 5. Smoker. 6. MRSA. 7. Diabetes mellitus. Plan: The right nipple ulcer and right [facility] ulcer remain healed. The left breast at [facility] ulcer started to tunnel this week. Wound care- Place silver into the tunnel area and apply moisten silver covered by Adaptic to the ulcer. Wound culture 12/23/19 due to the increase in size of the ulcer which was negative for bacterial growth. Wound culture on 12/09/19 was negative for bacterial growth. Culture was done because patient was having increased pain. Wound culture on 11/18/2019 was positive for MRSA, Corynebacterium striatum, Strepsalivarius sp. salvarius and Actinomyces Odontolyticus. She will continue the Doxycycline, Clindamycin and Flagyl. She has been taking her Doxycycline for her positive wound culture from 10/07/19 which was positive for MRSA and Corynebacterium striatum from her right breast Tzone wound. Prealbumin from 06/22/19 was 17.8. Encouraged nutritional supplementation with protein to help the healing process. Followup one week. Encouraged patient to stop smoking as it may have deleterious effects on wound healing. [id number]: [id number] Maricruz subq tissue 20 sq cm/<
[2020-01-06 10:15] VITALS: BP 109/73; PULSE 114; RESP 18; TEMP 35.9; BMI 30.9
--- NOTE | 2020-01-06 17:20 | PCM.WC.PN ---
Type of Wound Date of Service: 01/06/20 Chief Complaint: Nonhealing ulcer left breast at [facility]. History of Wound: Surgery 06/21/19 - Bilateral breast reduction mammaplasty. She was admitted to hospital on 07/05/19 with elevated WBC and comprosed wound healing. On 07/08/19 the right breast eschar was debrided in the hospital to make wound care easier and to drain infection. Wound VAC was started along with PICC line placement and Ceftriaxone IV antibiotics. Wound culture from 07/08/19 was positive for Proteus mirabilis, Enterococcus faecalis and MRSE. Augmentin and Doxycycline were added and she has finished them. On 07/22/19, there was wound breakdown on the left breast at the [facility]. Debridement was done and a wound culture showed MRSE and Corynebacterium amycolatum. During her IV antibiotics, the Creatinine increased to 1.32 on 08/12/19. The Ceftriaxone was stopped. The following week on 08/18/19 the Creatinine improved to normal at 0.98. Repeat wound culture on 10/07/19 showed MRSA and Corynebacterium striatum. She was placed on Doxycycline and finished them. There was another wound culture on 11/18/19. It showed MRSA, Corynebacterium striatum, Strep salvarius, and Actinomyces odontolyticus. She was placed on Doxycycline, Cleocin, and Flagyl and has finished them. Wound culture done on 12/09/19 because she was having increased pain of left breast ulcer, cultures were negative for bacterial growth. Obtained a wound culture 12/23/19 which was negative for bacterial growth. It was done because there was an increase in her wound size and pain. Wound care - Silver dressing to the left breast Tzone ulcer. She developed some yeast infection symptoms and was placed on Diflucan. Today she denies fever. She states her appetite is ok. Progress of Wound: The left breast Tzone has improved. The right breast Tzone remains healed. - Physical Exam Vital Signs Temp Pulse Resp BP 96.6 F L 114 H 18 109/73 01/06/20 10:15 01/06/20 10:15 01/06/20 10:15 01/06/20 10:15 Wound Measurements and Assessment WC - Nurse 1 - General Ulcer Measurement Start: 12/16/19 11:22 Freq: Status: Active Protocol: Activity Type Activity Date Activity User E-Sign Co-Sign Detail Recorded Client Recorded Date Recorded By Document 01/06/20 10:15 MW [id number] 01/06/20 10:17 MW 01/06/20 10:15 Wound Center Nurse 1 [Ulcer Assessment] 6-left medial breast -Combined with other wound No -Current Size (cm) - Length 1.0 -Current Size (cm) - Width 2.5 -Current Size (cm) - Depth 0.4 -Total Square Cm 2.50 -Photo Taken No -Tunneling Yes -Tunneling Position (O'clock) 11 -Tunneling Distance (cm) 1.4 -Undermining/Tunneling No -Circular Undermining No -Exudate Amt Small -Exudate Type Serosanguineous -Wound Margin Distinct, Outline Attached -Granulation Amt Large (67-100%) -Granulation Quality [place] -Slough/Fibrin Yes -Necrosis Amt Small (1-33%) -Necrotic Tissue Type Eschar -Structure Exposed N/A -Texture (Flavia-wound Skin Appearance) Assessed, Scarring -Moisture (Flavia-wound Skin Appearance No Abnormality, ) Assessed -Color (Flavia-wound Skin Appearance) No Abnormality, Assessed -Temperature (Flavia-wound Skin No Abnormality Appearance) (Pt Warm) -Tenderness on Palpation (Flavia-wound Yes Skin Appearance) -Ulcer Cleansing Rinsed/ Irrigated with Saline -Foul Odor after Cleansing No -Anesthetic Used 5% Lidocaine Gel [Edema Assessment] -Lower Limb Edema Present No WC - Nurse 2 - General Ulcer CM Notes Start: 12/16/19 11:22 Freq: Status: Active Protocol: Activity Type Activity Date Activity User E-Sign Co-Sign Detail Recorded Client Recorded Date Recorded By Document 01/06/20 10:43 [id number] 01/06/20 10:44 01/06/20 10:43 Wound Center Nurse 2 [Procedure/Treatment] 6-left medial breast -Time 10:43 -Correct Patient Yes -Correct Side, Site, Position Yes -Correct Procedure Yes -Procedure Performed Yes -Type of Procedure Debridement -Clinical Debridement Subcutaneous -Post Debridement Size (cm) - Length 1.0 -Post Debridement Size (cm) - Width 2.6 -Post Debridement Size (cm) - Depth 0.5 -Total Square Cm 2.60 -Wound/Ulcer Outcome Not Healed -Ulcer Cleansing Rinsed/ Irrigated with Saline -Foul Odor after Cleansing No -Bioengineered Tissue No -Bleeding Controlled with Pressure -Other tunnel---11;00- -1.4cm -Offloading No -Treatment Response Procedure Tolerated Well [See Physician Procedure note for Specifics] Pain Scale: 0-10 Numeric [Pain] -Is Patient Pain Free? Yes Debridement Note Post-Debridement Measurements/Treatment WC - Nurse 2 - General Ulcer CM Notes Start: 12/16/19 11:22 Freq: Status: Active Protocol: Activity Type Activity Date Activity User E-Sign Co-Sign Detail Recorded Client Recorded Date Recorded By Document 12/16/19 11:49 [id number] 12/16/19 11:51 Document 12/23/19 10:51 [id number] 12/23/19 10:56 Document 12/30/19 13:12 [id number] 12/30/19 13:13 Document 01/06/20 10:43 [id number] 01/06/20 10:44 12/16/19 12/23/19 12/30/19 11:49 10:51 13:12 Wound Center Nurse 2 6-left medial breast -Time 11:50 10:55 13:12 -Correct Patient Yes Yes Yes -Correct Side, Site, Position Yes Yes Yes -Correct Procedure Yes Yes Yes -Procedure Performed Yes Yes Yes -Type of Procedure Debridement Debridement Debridement -Clinical Debridement Subcutaneous Subcutaneous Subcutaneous -Post Debridement Size (cm) - Length 0.3 1.5 1.5 -Post Debridement Size (cm) - Width 0.4 2.8 3.0 -Post Debridement Size (cm) - Depth 0.4 0.2 0.3 -Total Square Cm 0.12 4.20 4.50 -Wound/Ulcer Outcome Not Healed Not Healed Not Healed -Ulcer Cleansing Rinsed/ Rinsed/ Rinsed/ Irrigated with Irrigated with Irrigated with Saline Saline Saline -Foul Odor after Cleansing No No No -Bioengineered Tissue No No No -Bleeding Controlled with Pressure Pressure Pressure -Other TUNNEL: 1.7CM AT 11:00 -Offloading No No No -Treatment Response Procedure Procedure Procedure Tolerated Well Tolerated Well Tolerated Well Pain Scale: 0-10 Numeric Is Patient Pain Free? Yes Yes Yes 01/06/20 10:43 Wound Center Nurse 2 6-left medial breast -Time 10:43 -Correct Patient Yes -Correct Side, Site, Position Yes -Correct Procedure Yes -Procedure Performed Yes -Type of Procedure Debridement -Clinical Debridement Subcutaneous -Post Debridement Size (cm) - Length 1.0 -Post Debridement Size (cm) - Width 2.6 -Post Debridement Size (cm) - Depth 0.5 -Total Square Cm 2.60 -Wound/Ulcer Outcome Not Healed -Ulcer Cleansing Rinsed/ Irrigated with Saline -Foul Odor after Cleansing No -Bioengineered Tissue No -Bleeding Controlled with Pressure -Other tunnel---11;00- -1.4cm -Offloading No -Treatment Response Procedure Tolerated Well Pain Scale: 0-10 Numeric Is Patient Pain Free? Yes Wound debrided: #6 Left breast at [facility]. Laterality: Left Wound Grade/Stage: 2. Type of Debridement: Excisional debridement Anesthesia Used: 4% Lidocaine Solution Depth: Down to and including healthy tissue, in the subcutaneous layer Percentage of wound debrided: 100 Instrument Used: 3mm curette Tissue Removed: subcutaneous tissue. Severity: Fat Layer Exposed Amount of bleeding with debridement: Mild Bleeding Controlled with: Pressure Patient tolerated procedure well Assessment/Plan Active Problems MRSA (methicillin resistant Staphylococcus aureus) infection (Chronic) Chronic skin ulcer with fat layer exposed (Chronic) nonhealing ulcers bilateral breasts at [facility] Type 2 diabetes mellitus (Chronic) Smoker (Chronic) Assessment: 1. Nonhealing ulcer left breast at [facility]. 2. Ulcer right breast at [facility], healed. 3. Bilateral macromastia. 4. s/p bilateral breast reduction mammaplasty. 5. Smoker. 6. MRSA. 7. Diabetes mellitus. Plan: The right breast remains healed. The left breast at [facility] ulcer shows some improvement. Reassured the patient that the tunnel was created at surgery and is not a sign of worsening infection. Continue Silver dressings to left breast at [facility]. Wound cultures from 12/23/19 and 12/09/19 were negative. Wound culture from 11/18/2019 was positive for MRSA, Corynebacterium striatum, Strepsalivarius sp. salvarius and Actinomyces Odontolyticus. She was placed on Doxycycline, Clindamycin and Flagyl and has finished them. Prealbumin from 06/22/19 was 17.8. Encouraged nutritional supplementation with protein to help the healing process. She still has yeast infection symptoms. Will continue the Diflucan. It will be renewed. Followup one week. Encouraged patient to stop smoking as it may have deleterious effects on wound healing. [id number]: [id number] Maricruz subq tissue 20 sq cm/< - ICD-10 - L98.492, N62, E11.9, F17.200, A49.02
[2020-01-13 14:23] VITALS: BP 103/77; PULSE 98; RESP 18; TEMP 36.2; BMI 30.9
--- NOTE | 2020-01-13 14:57 | PN.PCM_ITS ---
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 Status: Chronic Current Visit: Yes Code(s): L98.492 - Non-pressure chronic ulcer of skin of other sites with fat layer exposed Comment: nonhealing ulcers bilateral breasts at [facility] (2) MRSA (methicillin resistant Staphylococcus aureus) infection Status: Chronic Current Visit: Yes Code(s): A49.02 - Methicillin resistant Staphylococcus aureus infection, unspecified site (3) Type 2 diabetes mellitus Status: Chronic Current Visit: Yes Code(s): E11.9 - Type 2 diabetes mellitus without complications (4) Smoker Status: Chronic Current Visit: Yes Code(s): F17.200 - Nicotine dependence, unspecified, uncomplicated Type of Wound Date of Service: 01/13/20 Chief Complaint: Nonhealing ulcer left breast at [facility]. History of Wound: Surgery 06/21/19 - Bilateral breast reduction mammaplasty. She was admitted to hospital on 07/05/19 with elevated WBC and comprosed wound healing. On 07/08/19 the right breast eschar was debrided in the hospital to make wound care easier and to drain infection. Wound VAC was started along with PICC line placement and Ceftriaxone IV antibiotics. Wound culture from 07/08/19 was positive for Proteus mirabilis, Enterococcus faecalis and MRSE. Augmentin and Doxycycline were added and she has finished them. On 07/22/19, there was wound breakdown on the left breast at the [facility]. Debridement was done and a wound culture showed MRSE and Corynebacterium amycolatum. During her IV antibiotics, the Creatinine increased to 1.32 on 08/12/19. The Ceftriaxone was stopped. The following week on 08/18/19 the Creatinine improved to normal at 0.98. Repeat wound culture on 10/07/19 showed MRSA and Corynebacterium striat um. She was placed on Doxycycline and finished them. There was another wound culture on 11/18/19. It showed MRSA, Corynebacterium striatum, Strep salvarius, and Actinomyces odontolyticus. She was placed on Doxycycline, Cleocin, and Flagyl and has finished them. Wound culture done on 12/09/19 because she was having increased pain of left breast ulcer, cultures were negative for bacterial growth. Obtained a wound culture 12/23/19 which was negative for bacterial growth. It was done because there was an increase in her wound size and pain. Wound care - Silver dressing to the left breast Tzone ulcer including in the tunneled area. She developed some yeast infection symptoms and was placed on Diflucan. Today she denies fever. She states her appetite is ok. Progress of Wound: The left breast Tzone is stable. She continues to have a tunneled area with depth. The right breast Tzone remains healed. - Physical Exam Vital Signs Temp Pulse Resp BP 97.1 F L 98 18 103/77 01/13/20 14:23 01/13/20 14:23 01/13/20 14:23 01/13/20 14:23 General: Alert, Oriented x3, Cooperative HEENT: Atraumatic Oral: Moist Mucosa Lungs: Normal air movement Cardiovascular: Regular rate, Regular Rhythm Abdomen: Bowel Sounds Present Extremities: Capillary Refill Less than 3 Seconds Skin: Ulcer/ Wound - Left breast tzone ulcer with tunneled area. Ulcer is beefy pink. Wound Measurements and Assessment WC - Nurse 1 - General Ulcer Measurement Start: 12/16/19 11:22 Freq: Status: Active Protocol: Activity Type Activity Date Activity User E-Sign Co-Sign Detail Recorded Client Recorded Date Recorded By Document 01/13/20 14:23 DL [id number] 01/13/20 14:30 DL 01/13/20 14:23 Wound Center Nurse 1 [Ulcer Assessment] 6-left medial breast -Current Size (cm) - Length 0.7 -Current Size (cm) - Width 1.3 -Current Size (cm) - Depth 0.1 -Total Square Cm 0.91 -Photo Taken No -Tunneling Position (O'clock) 11 -Tunneling Distance (cm) 2.6 -Undermining/Tunneling No -Exudate Amt Small -Exudate Type Serosanguineous -Wound Margin Distinct, Outline Attached -Granulation Amt Large (67-100%) -Granulation Quality [place] -Necrosis Amt Small (1-33%) -Necrotic Tissue Type Adherent Slough -Structure Exposed N/A -Texture (Flavia-wound Skin Appearance) Scarring -Moisture (Flavia-wound Skin Appearance No Abnormality ) -Color (Flavia-wound Skin Appearance) No Abnormality -Temperature (Flavia-wound Skin No Abnormality Appearance) (Pt Warm) -Tenderness on Palpation (Flavia-wound No Skin Appearance) -Ulcer Cleansing Rinsed/ Irrigated with Saline -Foul Odor after Cleansing No -Anesthetic Used 4% Lidocaine Solution - Nurse 2 - General Ulcer CM Notes Start: 12/16/19 11:22 Freq: Status: Active Protocol: Activity Type Activity Date Activity User E-Sign Co-Sign Detail Recorded Client Recorded Date Recorded By Document 01/13/20 14:45 MW [id number] 01/13/20 14:49 MW 01/13/20 14:45 Wound Center Nurse 2 [Procedure/Treatment] -Time 14:45 -Correct Patient Yes -Correct Side, Site, Position Yes -Correct Procedure Yes -Procedure Performed Yes -Type of Procedure Debridement -Clinical Debridement Subcutaneous -Post Debridement Size (cm) - Length 0.7 -Post Debridement Size (cm) - Width 1.5 -Post Debridement Size (cm) - Depth 1.7 -Total Square Cm 1.05 -Wound/Ulcer Outcome Not Healed -Ulcer Cleansing Rinsed/ Irrigated with Saline -Foul Odor after Cleansing No -Bioengineered Tissue No -Bleeding Controlled with Pressure -Offloading No -Treatment Response Procedure Tolerated Well [See Physician Procedure note for Specifics] Pain Scale: 0-10 Numeric [Pain] -Is Patient Pain Free? Yes Musculoskeletal: Tenderness Neurological: Neuro grossly intact Psych/Mental Status: Normal Affect, Appropriate Debridement Note Post-Debridement Measurements/Treatment - Nurse 2 - General Ulcer CM Notes Start: 12/16/19 11:22 Freq: Status: Active Protocol: Activity Type Activity Date Activity User E-Sign Co-Sign Detail Recorded Client Recorded Date Recorded By Document 12/16/19 11:49 [id number] 12/16/19 11:51 Document 12/23/19 10:51 [id number] 12/23/19 10:56 Document 12/30/19 13:12 [id number] 12/30/19 13:13 Document 01/06/20 10:43 [id number] 01/06/20 10:44 Document 01/13/20 14:45 MW [id number] 01/13/20 14:49 MW 12/16/19 12/23/19 12/30/19 11:49 10:51 13:12 Wound Center Nurse 2 6-left medial breast -Time 11:50 10:55 13:12 -Correct Patient Yes Yes Yes -Correct Side, Site, Position Yes Yes Yes -Correct Procedure Yes Yes Yes -Procedure Performed Yes Yes Yes -Type of Procedure Debridement Debridement Debridement -Clinical Debridement Subcutaneous Subcutaneous Subcutaneous -Post Debridement Size (cm) - Length 0.3 1.5 1.5 -Post Debridement Size (cm) - Width 0.4 2.8 3.0 -Post Debridement Size (cm) - Depth 0.4 0.2 0.3 -Total Square Cm 0.12 4.20 4.50 -Wound/Ulcer Outcome Not Healed Not Healed Not Healed -Ulcer Cleansing Rinsed/ Rinsed/ Rinsed/ Irrigated with Irrigated with Irrigated with Saline Saline Saline -Foul Odor after Cleansing No No No -Bioengineered Tissue No No No -Bleeding Controlled with Pressure Pressure Pressure -Other TUNNEL: 1.7CM AT 11:00 -Offloading No No No -Treatment Response Procedure Procedure Procedure Tolerated Well Tolerated Well Tolerated Well Pain Scale: 0-10 Numeric Is Patient Pain Free? Yes Yes Yes 01/06/20 01/13/20 10:43 14:45 Wound Center Nurse 2 6-left medial breast -Time 10:43 14:45 -Correct Patient Yes Yes -Correct Side, Site, Position Yes Yes -Correct Procedure Yes Yes -Procedure Performed Yes Yes -Type of Procedure Debridement Debridement -Clinical Debridement Subcutaneous Subcutaneous -Post Debridement Size (cm) - Length 1.0 0.7 -Post Debridement Size (cm) - Width 2.6 1.5 -Post Debridement Size (cm) - Depth 0.5 1.7 -Total Square Cm 2.60 1.05 -Wound/Ulcer Outcome Not Healed Not Healed -Ulcer Cleansing Rinsed/ Rinsed/ Irrigated with Irrigated with Saline Saline -Foul Odor after Cleansing No No -Bioengineered Tissue No No -Bleeding Controlled with Pressure Pressure -Other tunnel---11;00- -1.4cm -Offloading No No -Treatment Response Procedure Procedure Tolerated Well Tolerated Well Pain Scale: 0-10 Numeric Is Patient Pain Free? Yes Yes Wound debrided: Tzone ulcer Laterality: Left Type of Debridement: Excisional debridement Anesthesia Used: 4% Lidocaine Solution, 5% Lidocaine Gel Depth: Down to and including healthy tissue, in the subcutaneous layer Percentage of wound debrided: 100 Instrument Used: 3mm curette Tissue Removed: Subcutaneous tissue and slough Severity: Fat Layer Exposed Amount of bleeding with debridement: Mild Bleeding Controlled with: Pressure Patient tolerated procedure well Assessment/Plan Active Problems MRSA (methicillin resistant Staphylococcus aureus) infection (Chronic) Chronic skin ulcer with fat layer exposed (Chronic) nonhealing ulcers bilateral breasts at [facility] Type 2 diabetes mellitus (Chronic) Smoker (Chronic) Assessment: 1. Nonhealing ulcer left breast at [facility]. 2. Ulcer right breast at [facility], healed. 3. Bilateral macromastia. 4. s/p bilateral breast reduction mammaplasty. 5. Smoker. 6. MRSA. 7. Diabetes mellitus. Plan: The right breast remains healed. The left breast at [facility] ulcer is stable. Reassured the patient that the tunnel was created at surgery and is not a sign of worsening infection. She would benefit from a negative pressure dressing such as PICCO NWPT to help decrease the depth of the tunneled area. Will continue Silver dressings to left breast at [facility], including packing into the tunnel. She has an area lateral to the ulcer that is very sensitive to light palpation that the patient state feels like the area that tunneled did before it opened up. This area is currently closed, will monitor closely. Wound cultures from 12/23/19 and 12/09/19 were negative. Wound culture from 11/18/2019 was positive for MRSA, Corynebacterium striatum, Strepsalivarius sp. salvarius and Actinomyces Odontolyticus. She was placed on Doxycycline, Clindamycin and Flagyl and has finished them. Prealbumin from 06/22/19 was 17.8. Encouraged nutritional supplementation with protein to help the healing process. Followup one week. Encouraged patient to stop smoking as it may have deleterious effects on wound healing. [id number]: [id number] Mar[place]ruz subq tissue 20 sq cm/<
== END 2020-01-14 23:59 ==
LOC: WC 14:00
PROVIDERS: Family Provider Family Medicine; PCP Family Medicine; Referring Provider Nurse Practitioner Family; Visit Provider Nurse Practitioner Family
DX: T81.31XA Disruption of external operation (surgical) wound, not elsewhere classified, initial encounter (principal); Y83.8 Other surgical procedures as the cause of abnormal reaction of the patient, or of later complication, without mention of misadventure at the time of the procedure; N62 Hypertrophy of breast; E11.9 Type 2 diabetes mellitus without complications; T81.89XA Other complications of procedures, not elsewhere classified, initial encounter; F17.200 Nicotine dependence, unspecified, uncomplicated; Z86.14 Personal history of Methicillin resistant Staphylococcus aureus infection; B37.9 Candidiasis, unspecified
CPT/HCPCS: 11042; 87070; 87075; 87205

== ENCOUNTER 2020-02-10 08:00 | Outpatient (RCR) | payer MEDICARE, MEDICAID, SELFPAY ==
[2020-01-15 00:28] VITALS: BP 103/77; PULSE 98; RESP 18; TEMP 36.2
[2020-01-20 14:34] VITALS: BP 144/106; PULSE 108; RESP 18; TEMP 36.9; BMI 30.9
--- NOTE | 2020-01-20 15:58 | PN.PCM_ITS ---
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 Status: Chronic Current Visit: Yes Code(s): L98.492 - Non-pressure chronic ulcer of skin of other sites with fat layer exposed Comment: nonhealing ulcers bilateral breasts at [facility] (2) Type 2 diabetes mellitus Status: Chronic Current Visit: Yes Code(s): E11.9 - Type 2 diabetes mellitus without complications (3) Smoker Status: Chronic Current Visit: Yes Code(s): F17.200 - Nicotine dependence, unspecified, uncomplicated Type of Wound Date of Service: 01/20/20 Chief Complaint: Nonhealing ulcer left breast at [facility]. History of Wound: Surgery 06/21/19 - Bilateral breast reduction mammaplasty. She was admitted to hospital on 07/05/19 with elevated WBC and comprosed wound healing. On 07/08/19 the right breast eschar was debrided in the hospital to make wound care easier and to drain infection. Wound VAC was started along with PICC line placement and Ceftriaxone IV antibiotics. Wound culture from 07/08/19 was positive for Proteus mirabilis, Enterococcus faecalis and MRSE. Augmentin and Doxycycline were added and she has finished them. On 07/22/19, there was wound breakdown on the left breast at the [facility]. Debridement was done and a wound culture showed MRSE and Corynebacterium amycolatum. During her IV antibiotics, the Creatinine increased to 1.32 on 08/12/19. The Ceftriaxone was stopped. The following week on 08/18/19 the Creatinine improved to normal at 0.98. Repeat wound culture on 10/07/19 showed MRSA and Corynebacterium striatum. She was placed on Doxycycline and finished them. There was another wound culture on 11/18/19. It showed MRSA, Corynebacterium striatum, Strep salvarius, and Actinomyces odontolyticus. She was placed on Doxycycline, Cleocin, and Flagyl and has finished them. Wound culture done on 12/09/19 because she was having increased pain of left breast ulcer, cultures were negative for bacterial growth. Obtained a wound culture 12/23/19 which was negative for bacterial growth. It was done because there was an increase in her wound size and pain. Wound care - Silver dressing to the left breast Tzone ulcer including in the tunneled area. She developed some yeast infection symptoms and was placed on Diflucan. Today she denies fever. She states her appetite is ok. Progress of Wound: The left breast Tzone is stable. She continues to have a tunneled area with depth. The right breast Tzone remains healed. - Physical Exam Vital Signs Temp Pulse Resp BP 98.5 F 108 H 18 144/106 H 01/20/20 14:34 01/20/20 14:34 01/20/20 14:34 01/20/20 14:34 General: Alert, Oriented x3, Cooperative HEENT: Atraumatic Oral: Moist Mucosa Lungs: Normal air movement Cardiovascular: Regular rate Extremities: Capillary Refill Less than 3 Seconds Skin: Ulcer/ Wound - Left breast tzone ulcer with tunnel Wound Measurements and Assessment WC - Nurse 1 - General Ulcer Measurement Start: 01/20/20 14:34 Freq: Status: Active Protocol: Activity Type Activity Date Activity User E-Sign Co-Sign Detail Recorded Client Recorded Date Recorded By Document 01/20/20 14:34 MW [id number] 01/20/20 14:38 MW 01/20/20 14:34 Wound Center Nurse 1 [Ulcer Assessment] 6-left medial breast -Combined with other wound No -Current Size (cm) - Length 0.5 -Current Size (cm) - Width 0.7 -Current Size (cm) - Depth 0.3 -Total Square Cm 0.35 -Photo Taken No -Epithelialization None Present -Tunneling No -Undermining/Tunneling No -Circular Undermining No -Exudate Amt Small -Exudate Type Serosanguineous -Wound Margin Distinct, Outline Attached -Granulation Amt Large (67-100%) -Granulation Quality [place] -Slough/Fibrin Yes -Necrosis Amt Small (1-33%) -Necrotic Tissue Type Adherent Slough -Structure Exposed N/A -Texture (Flavia-wound Skin Appearance) Assessed, Scarring -Moisture (Flavia-wound Skin Appearance No Abnormality, ) Assessed -Color (Flavia-wound Skin Appearance) No Abnormality, Assessed -Temperature (Flavia-wound Skin No Abnormality Appearance) (Pt Warm) -Tenderness on Palpation (Flavia-wound Yes Skin Appearance) -Ulcer Cleansing Rinsed/ Irrigated with Saline -Foul Odor after Cleansing No -Anesthetic Used 5% Lidocaine Gel [Edema Assessment] -Lower Limb Edema Present No WC - Nurse 2 - General Ulcer CM Notes Start: 01/20/20 14:34 Freq: Status: Active Protocol: Activity Type Activity Date Activity User E-Sign Co-Sign Detail Recorded Client Recorded Date Recorded By Document 01/20/20 15:00 [id number] 01/20/20 15:01 01/20/20 15:00 Wound Center Nurse 2 [Procedure/Treatment] 6-left medial breast -Time 15:00 -Correct Patient Yes -Correct Side, Site, Position Yes -Correct Procedure Yes -Procedure Performed Yes -Type of Procedure Debridement -Clinical Debridement Subcutaneous -Post Debridement Size (cm) - Length 0.5 -Post Debridement Size (cm) - Width 0.7 -Post Debridement Size (cm) - Depth 1.7 -Total Square Cm 0.35 -Wound/Ulcer Outcome Not Healed -Ulcer Cleansing Rinsed/ Irrigated with Saline -Foul Odor after Cleansing No -Bioengineered Tissue No -Bleeding Controlled with Pressure -Offloading No -Treatment Response Procedure Tolerated Well [See Physician Procedure note for Specifics] Pain Scale: 0-10 Numeric [Pain] -Is Patient Pain Free? Yes Musculoskeletal: Tenderness Neurological: Neuro grossly intact Psych/Mental Status: Normal Affect, Appropriate Debridement Note Post-Debridement Measurements/Treatment WC - Nurse 2 - General Ulcer CM Notes Start: 01/20/20 14:34 Freq: Status: Active Protocol: Activity Type Activity Date Activity User E-Sign Co-Sign Detail Recorded Client Recorded Date Recorded By Document 01/20/20 15:00 [id number] 01/20/20 15:01 01/20/20 15:00 Wound Center Nurse 2 6-left medial breast -Time 15:00 -Correct Patient Yes -Correct Side, Site, Position Yes -Correct Procedure Yes -Procedure Performed Yes -Type of Procedure Debridement -Clinical Debridement Subcutaneous -Post Debridement Size (cm) - Length 0.5 -Post Debridement Size (cm) - Width 0.7 -Post Debridement Size (cm) - Depth 1.7 -Total Square Cm 0.35 -Wound/Ulcer Outcome Not Healed -Ulcer Cleansing Rinsed/ Irrigated with Saline -Foul Odor after Cleansing No -Bioengineered Tissue No -Bleeding Controlled with Pressure -Offloading No -Treatment Response Procedure Tolerated Well Pain Scale: 0-10 Numeric Is Patient Pain Free? Yes Wound debrided: Breast tzone Laterality: Left Type of Debridement: Excisional debridement Anesthesia Used: 5% Lidocaine Gel Depth: Down to and including healthy tissue, in the subcutaneous layer Percentage of wound debrided: 100 Instrument Used: 3mm curette Tissue Removed: Subcutaneous tissue and slough Severity: Fat Layer Exposed Amount of bleeding with debridement: Mild Bleeding Controlled with: Pressure Patient tolerated procedure well Assessment/Plan Active Problems Chronic skin ulcer with fat layer exposed (Chronic) nonhealing ulcers bilateral breasts at [facility] Type 2 diabetes mellitus (Chronic) Smoker (Chronic) Assessment: 1. Nonhealing ulcer left breast at [facility]. 2. Ulcer right breast at [facility], healed. 3. Bilateral macromastia. 4. s/p bilateral breast reduction mammaplasty. 5. Smoker. 6. MRSA. 7. Diabetes mellitus. Plan: The right breast remains healed. The left breast at [facility] ulcer is stable. Reassured the patient that the tunnel was created at surgery and is not a sign of worsening infection. She would benefit from a negative pressure dressing such as PICCO NWPT to help decrease the depth of the tunneled area. Her insurance denied the PICCO so will apply for SNAP vac since she previously was approved for that. It would be beneficial to help decrease the depth of the tunnel. Will continue Silver dressings to left breast at [facility], including packing into the tunnel. She has an area lateral to the ulcer that is very sensitive to light palpation that the patient state feels like the area that tunneled did before it opened up. This area is currently closed, will monitor closely. Wound cultures from 12/23/19 and 12/09/19 were negative. Wound culture from 11/18/2019 was positive for MRSA, Corynebacterium striatum, Strepsalivarius sp. salvarius and Actinomyces Odontolyticus. She was placed on Doxycycline, Clindamycin and Flagyl and has finished them. Prealbumin from 06/22/19 was 17.8. Encouraged nutritional supplementation with protein to help the healing process. Followup one week. Encouraged patient to stop smoking as it may have deleterious effects on wound healing. [id number]: [id number] Maricruz subq tissue 20 sq cm/<
[2020-01-27 13:24] VITALS: BP 150/86; PULSE 87; RESP 18; TEMP 36.5; BMI 30.9
--- NOTE | 2020-01-27 15:01 | PCM.WC.PN ---
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 Status: Chronic Current Visit: Yes Code(s): L98.492 - Non-pressure chronic ulcer of skin of other sites with fat layer exposed Comment: nonhealing ulcers bilateral breasts at [facility] (2) Type 2 diabetes mellitus Status: Chronic Current Visit: Yes Code(s): E11.9 - Type 2 diabetes mellitus without complications (3) Smoker Status: Chronic Current Visit: Yes Code(s): F17.200 - Nicotine dependence, unspecified, uncomplicated Type of Wound Date of Service: 01/28/20 Chief Complaint: Nonhealing ulcer left breast at [facility]. History of Wound: Surgery 06/21/19 - Bilateral breast reduction mammaplasty. She was admitted to hospital on 07/05/19 with elevated WBC and comprosed wound healing. On 07/08/19 the right breast eschar was debrided in the hospital to make wound care easier and to drain infection. Wound VAC was started along with PICC line placement and Ceftriaxone IV antibiotics. Wound culture from 07/08/19 was positive for Proteus mirabilis, Enterococcus faecalis and MRSE. Augmentin and Doxycycline were added and she has finished them. On 07/22/19, there was wound breakdown on the left breast at the [facility]. Debridement was done and a wound culture showed MRSE and Corynebacterium amycolatum. During her IV antibiotics, the Creatinine increased to 1.32 on 08/12/19. The Ceftriaxone was stopped. The following week on 08/18/19 the Creatinine improved to normal at 0.98. Repeat wound culture on 10/07/19 showed MRSA and Corynebacterium striatum. She was placed on Doxycycline and finished them. There was another wound culture on 11/18/19. It showed MRSA, Corynebacterium striatum, Strep salvarius, and Actinomyces odontolyticus. She was placed on Doxycycline, Cleocin, and Flagyl and has finished them. Wound culture done on 12/09/19 because she was having increased pain of left breast ulcer, cultures were negative for bacterial growth. Obtained a wound culture 12/23/19 which was negative for bacterial growth. It was done because there was an increase in her wound size and pain. Wound care - Silver dressing to the left breast Tzone ulcer including in the tunneled area. She would benefit from a negative pressure dressing because she has depth to the tunnel but there is only the ulcer opening on the surface. The concern is that the surface will heal over and leave the tunneled area that will eventually get infected and reopen. She developed some yeast infection symptoms and was placed on Diflucan. Today she denies fever. She states her appetite is ok. Progress of Wound: The left breast Tzone is showing no improvement. She continues to have a tunneled area with depth, there is now only the tunneled area, the surface ulcer has healed. The right breast Tzone remains healed. - Physical Exam Vital Signs Temp Pulse Resp BP 97.7 F L 87 18 150/86 H 01/27/20 13:24 01/27/20 13:24 01/27/20 13:24 01/27/20 13:24 General: Alert, Oriented x3, Cooperative HEENT: Atraumatic Oral: Moist Mucosa Lungs: Normal air movement Cardiovascular: Regular rate Abdomen: Soft Extremities: Capillary Refill Less than 3 Seconds Skin: Ulcer/ Wound - Left breast at the Tzone. There is only a tunneled opening at this time. There is drainage present. Wound Measurements and Assessment WC - Nurse 1 - General Ulcer Measurement Start: 01/20/20 14:34 Freq: Status: Active Protocol: Activity Type Activity Date Activity User E-Sign Co-Sign Detail Recorded Client Recorded Date Recorded By Document 01/27/20 13:24 [id number] 01/27/20 13:28 01/27/20 13:24 Wound Center Nurse 1 [Ulcer Assessment] 6-left medial breast -Combined with other wound No -Current Size (cm) - Length 1.0 -Current Size (cm) - Width 0.8 -Current Size (cm) - Depth 0.5 -Total Square Cm 0.80 -Tunneling Yes -Tunneling Position (O'clock) 9 -Tunneling Distance (cm) 0.6 -Exudate Type Purulent -Moisture (Flavia-wound Skin Appearance No Abnormality, ) Assessed -Color (Flavia-wound Skin Appearance) No Abnormality, Assessed -Temperature (Flavia-wound Skin No Abnormality Appearance) (Pt Warm) -Tenderness on Palpation (Flavia-wound No Skin Appearance) -Ulcer Cleansing Rinsed/ Irrigated with Saline -Foul Odor after Cleansing No -Anesthetic Used 4% Lidocaine Solution WC - Nurse 2 - General Ulcer CM Notes Start: 01/20/20 14:34 Freq: Status: Active Protocol: Activity Type Activity Date Activity User E-Sign Co-Sign Detail Recorded Client Recorded Date Recorded By Document 01/27/20 13:41 [id number] 01/27/20 13:41 01/27/20 13:41 Wound Center Nurse 2 [Procedure/Treatment] -Time 13:41 -Correct Patient Yes -Correct Side, Site, Position Yes -Correct Procedure Yes -Procedure Performed Yes -Type of Procedure Debridement -Clinical Debridement Subcutaneous -Post Debridement Size (cm) - Length 0.4 -Post Debridement Size (cm) - Width 0.7 -Post Debridement Size (cm) - Depth 1.7 -Total Square Cm 0.28 -Wound/Ulcer Outcome Not Healed -Ulcer Cleansing Rinsed/ Irrigated with Saline -Foul Odor after Cleansing No -Bioengineered Tissue No -Bleeding Controlled with Pressure -Offloading No -Treatment Response Procedure Tolerated Well [See Physician Procedure note for Specifics] Pain Scale: 0-10 Numeric [Pain] -Is Patient Pain Free? Yes Musculoskeletal: Tenderness Neurological: Neuro grossly intact Psych/Mental Status: Normal Affect, Appropriate Debridement Note Post-Debridement Measurements/Treatment WC - Nurse 2 - General Ulcer CM Notes Start: 01/20/20 14:34 Freq: Status: Active Protocol: Activity Type Activity Date Activity User E-Sign Co-Sign Detail Recorded Client Recorded Date Recorded By Document 01/20/20 15:00 [id number] 01/20/20 15:01 Document 01/27/20 13:41 [id number] 01/27/20 13:41 01/20/20 01/27/20 15:00 13:41 Wound Center Nurse 2 6-left medial breast -Time 15:00 13:41 -Correct Patient Yes Yes -Correct Side, Site, Position Yes Yes -Correct Procedure Yes Yes -Procedure Performed Yes Yes -Type of Procedure Debridement Debridement -Clinical Debridement Subcutaneous Subcutaneous -Post Debridement Size (cm) - Length 0.5 0.4 -Post Debridement Size (cm) - Width 0.7 0.7 -Post Debridement Size (cm) - Depth 1.7 1.7 -Total Square Cm 0.35 0.28 -Wound/Ulcer Outcome Not Healed Not Healed -Ulcer Cleansing Rinsed/ Rinsed/ Irrigated with Irrigated with Saline Saline -Foul Odor after Cleansing No No -Bioengineered Tissue No No -Bleeding Controlled with Pressure Pressure -Offloading No No -Treatment Response Procedure Procedure Tolerated Well Tolerated Well Pain Scale: 0-10 Numeric Is Patient Pain Free? Yes Yes Wound debrided: Breast tzone ulcer tunnel Laterality: Left Type of Debridement: Excisional debridement Anesthesia Used: 5% Lidocaine Gel Depth: Down to and including healthy tissue, in the subcutaneous layer Percentage of wound debrided: 100 Instrument Used: 3mm curette Tissue Removed: Subcutaneous tissue and slough Severity: Fat Layer Exposed Amount of bleeding with debridement: Mild Bleeding Controlled with: Pressure Patient tolerated procedure well Assessment/Plan Active Problems Chronic skin ulcer with fat layer exposed (Chronic) nonhealing ulcers bilateral breasts at [facility] Type 2 diabetes mellitus (Chronic) Smoker (Chronic) Assessment: 1. Nonhealing ulcer left breast at [facility]. 2. Ulcer right breast at [facility], healed. 3. Bilateral macromastia. 4. s/p bilateral breast reduction mammaplasty. 5. Smoker. 6. MRSA. 7. Diabetes mellitus. Plan: The right breast remains healed. The left breast at one ulcer remains unchanged. Wound care - Silver dressing to the left breast Tzone ulcer including in the tunneled area to the base of the tunnel. She would benefit from a negative pressure dressing because she has depth to the tunnel but there is only the ulcer opening on the surface. The concern is that the surface will heal over and leave the tunneled area that will eventually get infected and reopen. She has an area lateral to the ulcer that is very sensitive to light palpation that the patient state feels like the area that tunneled did before it opened up. This area is currently closed, will monitor closely. Wound cultures from 12/23/19 and 12/09/19 were negative. Wound culture from 11/18/2019 was positive for MRSA, Corynebacterium striatum, Strepsalivarius sp. salvarius and Actinomyces Odontolyticus. She was placed on Doxycycline, Clindamycin and Flagyl and has finished them. Prealbumin from 06/22/19 was 17.8. Encouraged nutritional supplementation with protein to help the healing process. Followup two weeks. Encouraged patient to stop smoking as it may have deleterious effects on wound healing. [id number]: [id number] Maricruz subq tissue 20 sq cm/<
[2020-02-10 08:09] VITALS: BP 155/98; PULSE 106; RESP 20; TEMP 36.6; BMI 30.9
--- NOTE | 2020-02-10 11:40 | PN.PCM_ITS ---
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 Status: Chronic Current Visit: Yes Code(s): L98.492 - Non-pressure chronic ulcer of skin of other sites with fat layer exposed Comment: nonhealing ulcers bilateral breasts at [facility] (2) Type 2 diabetes mellitus Status: Chronic Current Visit: Yes Code(s): E11.9 - Type 2 diabetes mellitus without complications (3) Smoker Status: Chronic Current Visit: Yes Code(s): F17.200 - Nicotine dependence, unspecified, uncomplicated Type of Wound Date of Service: 02/10/20 Chief Complaint: Nonhealing ulcer left breast at [facility]. History of Wound: Surgery 06/21/19 - Bilateral breast reduction mammaplasty. She was admitted to hospital on 07/05/19 with elevated WBC and comprosed wound healing. On 07/08/19 the right breast eschar was debrided in the hospital to make wound care easier and to drain infection. Wound VAC was started along with PICC line placement and Ceftriaxone IV antibiotics. Wound culture from 07/08/19 was positive for Proteus mirabilis, Enterococcus faecalis and MRSE. Augmentin and Doxycycline were added and she has finished them. On 07/22/19, there was wound breakdown on the left breast at the [facility]. Debridement was done and a wound culture showed MRSE and Corynebacterium amycolatum. During her IV antibiotics, the Creatinine increased to 1.32 on 08/12/19. The Ceftriaxone was stopped. The following week on 08/18/19 the Creatinine improved to normal at 0.98. Repeat wound culture on 10/07/19 showed MRSA and Corynebacterium striatum. She was placed on Doxycycline and finished them. There was another wound culture on 11/18/19. It showed MRSA, Corynebacterium striatum, Strep salvarius, and Actinomyces odontolyticus. She was placed on Doxycycline, Cleocin, and Flagyl and has finished them. Wound culture done on 12/09/19 because she was having increased pain of left breast ulcer, cultures were negative for bacterial growth. Obtained a wound culture 12/23/19 which was negative for bacterial growth. It was done because there was an increase in her wound size and pain. Wound care - Silver dressing to the left breast Tzone ulcer including in the tunneled area. She would benefit from a negative pressure dressing because she has depth to the tunnel but there is only the ulcer opening on the surface. The concern is that the surface will heal over and leave the tunneled area that will eventually get infected and reopen. She developed some yeast infection symptoms and was placed on Diflucan. Today she denies fever. She states her appetite is ok. Progress of Wound: The left breast Tzone is showing very minimal improvement. She continues to have a tunneled area with depth, there is now only the tunneled area, the surface ulcer has healed. The right breast Tzone remains healed. - Physical Exam Vital Signs Temp Pulse Resp BP 97.8 F 106 H 20 H 155/98 H 02/10/20 08:09 02/10/20 08:09 02/10/20 08:09 02/10/20 08:09 General: Alert, Oriented x3, Cooperative HEENT: Atraumatic Oral: Moist Mucosa Lungs: Normal air movement Cardiovascular: Regular rate Extremities: Capillary Refill Less than 3 Seconds Skin: Ulcer/ Wound - Left breast ulcer at the T-zone, there is tunneling Wound Measurements and Assessment WC - Nurse 1 - General Ulcer Measurement Start: 01/20/20 14:34 Freq: Status: Active Protocol: Activity Type Activity Date Activity User E-Sign Co-Sign Detail Recorded Client Recorded Date Recorded By Document 02/10/20 08:09 [id number] 02/10/20 08:15 DL 02/10/20 08:09 Wound Center Nurse 1 [Ulcer Assessment] 6-left medial breast -Current Size (cm) - Length 0.6 -Current Size (cm) - Width 0.8 -Current Size (cm) - Depth 1.7 -Total Square Cm 0.48 -Photo Taken No -Exudate Amt Small -Exudate Type Serosanguineous -Wound Margin Distinct, Outline Attached -Granulation Amt Large (67-100%) -Granulation Quality [place],Red -Necrosis Amt Small (1-33%) -Necrotic Tissue Type Adherent Slough -Structure Exposed N/A -Texture (Flavia-wound Skin Appearance) Scarring -Moisture (Flavia-wound Skin Appearance No Abnormality ) -Color (Flavia-wound Skin Appearance) No Abnormality -Temperature (Flavia-wound Skin No Abnormality Appearance) (Pt Warm) -Tenderness on Palpation (Flavia-wound No Skin Appearance) -Ulcer Cleansing Rinsed/ Irrigated with Saline -Foul Odor after Cleansing No -Anesthetic Used 4% Lidocaine Solution - Nurse 2 - General Ulcer CM Notes Start: 01/20/20 14:34 Freq: Status: Active Protocol: Activity Type Activity Date Activity User E-Sign Co-Sign Detail Recorded Client Recorded Date Recorded By Document 02/10/20 08:35 [id number] 02/10/20 08:36 02/10/20 08:35 Wound Center Nurse 2 [Procedure/Treatment] -Time 08:35 -Correct Patient Yes -Correct Side, Site, Position Yes -Correct Procedure Yes -Procedure Performed Yes -Type of Procedure Debridement -Clinical Debridement Subcutaneous -Post Debridement Size (cm) - Length 0.7 -Post Debridement Size (cm) - Width 0.7 -Post Debridement Size (cm) - Depth 1.3 -Total Square Cm 0.49 -Wound/Ulcer Outcome Not Healed -Ulcer Cleansing Rinsed/ Irrigated with Saline -Foul Odor after Cleansing No -Bioengineered Tissue No -Bleeding Controlled with Pressure -Offloading No -Treatment Response Procedure Tolerated Well [See Physician Procedure note for Specifics] Pain Scale: 0-10 Numeric [Pain] -Is Patient Pain Free? Yes Musculoskeletal: No Tenderness to Palpation of Joints or Extremities Neurological: Neuro grossly intact Psych/Mental Status: Normal Affect, Appropriate Debridement Note Post-Debridement Measurements/Treatment - Nurse 2 - General Ulcer CM Notes Start: 01/20/20 14:34 Freq: Status: Active Protocol: Activity Type Activity Date Activity User E-Sign Co-Sign Detail Recorded Client Recorded Date Recorded By Document 01/20/20 15:00 [id number] 01/20/20 15:01 Document 01/27/20 13:41 [id number] 01/27/20 13:41 Document 02/10/20 08:35 [id number] 02/10/20 08:36 01/20/20 01/27/20 02/10/20 15:00 13:41 08:35 Wound Center Nurse 2 6-left medial breast -Time 15:00 13:41 08:35 -Correct Patient Yes Yes Yes -Correct Side, Site, Position Yes Yes Yes -Correct Procedure Yes Yes Yes -Procedure Performed Yes Yes Yes -Type of Procedure Debridement Debridement Debridement -Clinical Debridement Subcutaneous Subcutaneous Subcutaneous -Post Debridement Size (cm) - Length 0.5 0.4 0.7 -Post Debridement Size (cm) - Width 0.7 0.7 0.7 -Post Debridement Size (cm) - Depth 1.7 1.7 1.3 -Total Square Cm 0.35 0.28 0.49 -Wound/Ulcer Outcome Not Healed Not Healed Not Healed -Ulcer Cleansing Rinsed/ Rinsed/ Rinsed/ Irrigated with Irrigated with Irrigated with Saline Saline Saline -Foul Odor after Cleansing No No No -Bioengineered Tissue No No No -Bleeding Controlled with Pressure Pressure Pressure -Offloading No No No -Treatment Response Procedure Procedure Procedure Tolerated Well Tolerated Well Tolerated Well Pain Scale: 0-10 Numeric Is Patient Pain Free? Yes Yes Yes Wound debrided: Breast ulcer at T-zone Laterality: Left Type of Debridement: Excisional debridement Anesthesia Used: 4% Lidocaine Solution Depth: Down to and including healthy tissue, in the subcutaneous layer Percentage of wound debrided: 100 Instrument Used: 3mm curette Tissue Removed: Subcutaneous tissue and slough Severity: Limited To Skin Breakdown Amount of bleeding with debridement: Mild Bleeding Controlled with: Pressure Patient tolerated procedure well Assessment/Plan Active Problems Chronic skin ulcer with fat layer exposed (Chronic) nonhealing ulcers bilateral breasts at [facility] Type 2 diabetes mellitus (Chronic) Smoker (Chronic) Assessment: 1. Nonhealing ulcer left breast at [facility]. 2. Ulcer right breast at [facility], healed. 3. Bilateral macromastia. 4. s/p bilateral breast reduction mammaplasty. 5. Smoker. 6. MRSA. 7. Diabetes mellitus. Plan: The right breast remains healed. The left breast at [facility] ulcer remains unchanged. Wound care - Silver dressing to the left breast [facility] ulcer tunneled area to the base of the tunnel. She would benefit from a negative pressure dressing because she has depth to the tunnel to help heal it from the base outward with negative pressure. The concern is that the surface will heal over and leave the tunneled area that will eventually get infected and reopen. That is another reason the negative pressure dressing like the SNAP vac would be appropriate. The other option is to have Dr. Watkins re evaluate her ulcer and possibly take her to back to surgery for the closure of the ulcer. Wound cultures from 12/23/19 and 12/09/19 were negative. Wound culture from 11/18/2019 was positive for MRSA, Corynebacterium striatum, Strepsalivarius sp. salvarius and Actinomyces Odontolyticus. She was placed on Doxycycline, Clindamycin and Flagyl and has finished them. Prealbumin from 06/22/19 was 17.8. Encouraged nutritional supplementation with protein to help the healing process. Followup two weeks. Encouraged patient to stop smoking as it may have deleterious effects on wound healing. [id number]: [id number] Maricruz subq tissue 20 sq cm/<
== END 2020-02-13 23:59 ==
LOC: WC 08:00
PROVIDERS: Family Provider Family Medicine; PCP Family Medicine; Referring Provider Nurse Practitioner Family; Visit Provider Nurse Practitioner Family
DX: T81.31XA Disruption of external operation (surgical) wound, not elsewhere classified, initial encounter (principal); Y83.8 Other surgical procedures as the cause of abnormal reaction of the patient, or of later complication, without mention of misadventure at the time of the procedure; N62 Hypertrophy of breast; E11.9 Type 2 diabetes mellitus without complications; T81.89XA Other complications of procedures, not elsewhere classified, initial encounter; F17.200 Nicotine dependence, unspecified, uncomplicated; Z86.14 Personal history of Methicillin resistant Staphylococcus aureus infection
CPT/HCPCS: 11042

== ENCOUNTER → 2020-02-11 10:59 | Outpatient (CLI) | payer MEDICARE, MEDICAID, SELFPAY ==
[2020-01-27 13:24] VITALS: BMI 30.9
[2020-02-10 08:09] VITALS: BMI 30.9
--- NOTE | 2020-02-11 11:07 | BD_ITS ---
STUDY: DUAL ENERGY X-RAY ABSORPTIOMETRY / DXA REASON FOR EXAM: Female, 49 years old. 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 COMPARISON: None. FINDINGS: Lumbar Spine (L1-L4): g/cm2 (1.165) / T-score (-0.1) / Z-score (0.3) Findings are suggestive of normal bone density with a low fracture risk. Left Femur Total: g/cm2 (0.959) / T-score (-0.4) / Z-score (0.1) Left Femoral Neck: g/cm2 (0.908) / T-score (-0.9) / Z-score (-0.1) Right Femur Total: g/cm2 (0.908) / T-score (-0.8) / Z-score (-0.3) Right Femoral Neck: g/cm2 (0.822) / T-score (-1.6) / Z-score (-0.7) BD/Dexa Bone Density Study IMPRESSION: The patient is considered osteopenic as outlined below according to World [place] Organization (WHO) criteria with a moderate fracture risk. Reference Information: The T-score is the number of standard deviations above or below the standard which is normal for young adults at their peak bone mineral density. The World Health Organization (WHO) interprets the T-scores as follows: Above -1 Normal bone density Between -1 and -2.5 Osteopenia Equal to / or below -2.5 Osteoporosis As a practical clinical guideline, osteopenia may be graded as follows: Mild -1 through -1.5 Moderate -1.6 through -2.0 Severe -2.1 through -2.4 The Z-score is the number of standard deviations above or below age-matched controls. A Z-score of less than -1.5 would be considered abnormal. References: 1. NIH Osteoporosis and Related Bone Diseases http://www.osteo.org 2. International Society for Clinical Densitometry http://www.iscd.org 3. National Osteoporosis Foundation http://www.nof.org Electronically Signed: Rufus Pike, at 13:24 EDT , Service support ,
== END ==
PROVIDERS: PCP Family Medicine; Referring Provider Family Medicine; Visit Provider Family Medicine
DX: Z79.52 Long term (current) use of systemic steroids (principal)
CPT/HCPCS: 77080

== ENCOUNTER 2020-03-02 08:30 | Outpatient (RCR) | payer MEDICARE, MEDICAID, SELFPAY ==
[2020-02-14 00:10] VITALS: BP 155/98; PULSE 106; RESP 20; TEMP 36.6
[2020-02-24 08:40] VITALS: BP 144/69; PULSE 109; RESP 18; TEMP 36.8; BMI 30.9
--- NOTE | 2020-02-24 13:02 | PN.PCM_ITS ---
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 Status: Chronic Code(s): L98.492 - Non-pressure chronic ulcer of skin of other sites with fat layer exposed Comment: nonhealing ulcers bilateral breasts at [facility] (2) MRSA (methicillin resistant Staphylococcus aureus) infection Status: Chronic Code(s): A49.02 - Methicillin resistant Staphylococcus aureus infection, unspecified site (3) Type 2 diabetes mellitus Status: Chronic Code(s): E11.9 - Type 2 diabetes mellitus without complications (4) Smoker Status: Chronic Code(s): F17.200 - Nicotine dependence, unspecified, uncomplicated Type of Wound Date of Service: 03/01/20 Chief Complaint: Nonhealing ulcer left breast at [facility]. History of Wound: Surgery 06/21/19 - Bilateral breast reduction mammaplasty. She was admitted to hospital on 07/05/19 with elevated WBC and comprosed wound healing. On 07/08/19 the right breast eschar was debrided in the hospital to make wound care easier and to drain infection. Wound VAC was started along with PICC line placement and Ceftriaxone IV antibiotics. Wound culture from 07/08/19 was positive for Proteus mirabilis, Enterococcus faecalis and MRSE. Augmentin and Doxycycline were added and she has finished them. On 07/22/19, there was wound breakdown on the left breast at the [facility]. Debridement was done and a wound culture showed MRSE and Corynebacterium amycolatum. During her IV antibiotics, the Creatinine increased to 1.32 on 08/12/19. The Ceftriaxone was stopped. The following week on 08/18/19 the Creatinine improved to normal at 0.98. Repeat wound culture on 10/07/19 showed MRSA and Corynebacterium striatum. She was placed on Doxycycline and finished them. There was another wound culture on 11/18/19. It showed MRSA, Corynebacterium striatum, Strep salvarius, and Actinomyces odontolyticus. She was placed on Doxycycline, Cleocin, and Flagyl and has finished them. Wound culture done on 12/09/19 because she was having increased pain of left breast ulcer, cultures were negative for bacterial growth. Obtained a wound culture 12/23/19 which was negative for bacterial growth. It was done because there was an increase in her wound size and pain. Wound care - Silver dressing to the left breast Tzone ulcer including in the tunneled area. She would benefit from a negative pressure dressing because she has depth to the tunnel but there is only the ulcer opening on the surface. The concern is that the surface will heal over and leave the tunneled area that will eventually get infected and reopen. She developed some yeast infection symptoms and was placed on Diflucan. Today she denies fever. She states her appetite is ok. Progress of Wound: The left breast Tzone is showing very minimal improvement. She continues to have a tunneled area with depth, there is now only the tunneled area, the surface ulcer has healed. The right breast Tzone remains healed. - Physical Exam Vital Signs Temp Pulse Resp BP 98.3 F 109 H 18 144/69 H 02/24/20 08:40 02/24/20 08:40 02/24/20 08:40 02/24/20 08:40 General: Alert, Oriented x3, Cooperative HEENT: Atraumatic Oral: Moist Mucosa Lungs: Normal air movement Cardiovascular: Regular rate Extremities: No edema, Capillary Refill Less than 3 Seconds Skin: Ulcer/ Wound - left breast tzone ulcer Wound Measurements and Assessment WC - Nurse 1 - General Ulcer Measurement Start: 02/24/20 08:40 Freq: Status: Active Protocol: Activity Type Activity Date Activity User E-Sign Co-Sign Detail Recorded Client Recorded Date Recorded By Document 02/24/20 08:40 MW [id number] 02/24/20 08:46 MW 02/24/20 08:40 Wound Center Nurse 1 [Ulcer Assessment] 6-left medial breast -Combined with other wound No -Current Size (cm) - Length 0.6 -Current Size (cm) - Width 0.3 -Current Size (cm) - Depth 1.6 -Total Square Cm 0.18 -Photo Taken No -Epithelialization None Present -Tunneling No -Undermining/Tunneling No -Circular Undermining No -Exudate Amt Small -Exudate Type Serosanguineous -Wound Margin Indistinct, Non -Visible -Granulation Amt Small (1-33%) -Granulation Quality [place] -Slough/Fibrin Yes -Necrosis Amt Small (1-33%) -Necrotic Tissue Type Adherent Slough -Structure Exposed N/A -Texture (Flavia-wound Skin Appearance) Assessed, Scarring -Moisture (Flavia-wound Skin Appearance No Abnormality, ) Assessed -Color (Flavia-wound Skin Appearance) No Abnormality, Assessed -Temperature (Flavia-wound Skin No Abnormality Appearance) (Pt Warm) -Tenderness on Palpation (Flavia-wound Yes Skin Appearance) -Ulcer Cleansing Rinsed/ Irrigated with Saline -Foul Odor after Cleansing No -Anesthetic Used 5% Lidocaine Gel [Edema Assessment] -Lower Limb Edema Present No WC - Nurse 2 - General Ulcer CM Notes Start: 02/24/20 08:40 Freq: Status: Active Protocol: Activity Type Activity Date Activity User E-Sign Co-Sign Detail Recorded Client Recorded Date Recorded By Document 02/24/20 08:57 [id number] 02/24/20 08:59 02/24/20 08:57 Wound Center Nurse 2 [Procedure/Treatment] 6-left medial breast -Time 08:58 -Correct Patient Yes -Correct Side, Site, Position Yes -Correct Procedure Yes -Procedure Performed Yes -Type of Procedure Debridement -Clinical Debridement Subcutaneous -Post Debridement Size (cm) - Length 0.5 -Post Debridement Size (cm) - Width 0.9 -Post Debridement Size (cm) - Depth 1.6 -Total Square Cm 0.45 -Wound/Ulcer Outcome Not Healed -Ulcer Cleansing Rinsed/ Irrigated with Saline -Foul Odor after Cleansing No -Bioengineered Tissue No -Bleeding Controlled with Pressure -Offloading No -Treatment Response Procedure Tolerated Well [See Physician Procedure note for Specifics] Pain Scale: 0-10 Numeric [Pain] -Is Patient Pain Free? Yes Musculoskeletal: No Tenderness to Palpation of Joints or Extremities Neurological: Neuro grossly intact Psych/Mental Status: Normal Affect, Appropriate Debridement Note Post-Debridement Measurements/Treatment WC - Nurse 2 - General Ulcer CM Notes Start: 02/24/20 08:40 Freq: Status: Active Protocol: Activity Type Activity Date Activity User E-Sign Co-Sign Detail Recorded Client Recorded Date Recorded By Document 02/24/20 08:57 [id number] 02/24/20 08:59 02/24/20 08:57 Wound Center Nurse 2 6-left medial breast -Time 08:58 -Correct Patient Yes -Correct Side, Site, Position Yes -Correct Procedure Yes -Procedure Performed Yes -Type of Procedure Debridement -Clinical Debridement Subcutaneous -Post Debridement Size (cm) - Length 0.5 -Post Debridement Size (cm) - Width 0.9 -Post Debridement Size (cm) - Depth 1.6 -Total Square Cm 0.45 -Wound/Ulcer Outcome Not Healed -Ulcer Cleansing Rinsed/ Irrigated with Saline -Foul Odor after Cleansing No -Bioengineered Tissue No -Bleeding Controlled with Pressure -Offloading No -Treatment Response Procedure Tolerated Well Pain Scale: 0-10 Numeric Is Patient Pain Free? Yes Wound debrided: tzone ulcer Laterality: Left Type of Debridement: Excisional debridement Anesthesia Used: 5% Lidocaine Gel Depth: Down to and including healthy tissue, in the subcutaneous layer Percentage of wound debrided: 100 Instrument Used: 3mm curette Tissue Removed: Subcutaneous tissue and slough Severity: Fat Layer Exposed Amount of bleeding with debridement: Mild Bleeding Controlled with: Pressure Patient tolerated procedure well Assessment/Plan Assessment: 1. 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 2. Ulcer right breast at [facility], healed. 3. Bilateral macromastia. 4. s/p bilateral breast reduction mammaplasty. 5. Smoker. 6. MRSA. 7. Diabetes mellitus. Plan: The right breast remains healed. The left breast at [facility] ulcer remains unchanged. Wound care - Silver dressing to the left breast Tzone ulcer tunneled area to the base of the tunnel. She would benefit from a negative pressure dressing because she has depth to the tunnel to help heal it from the base outward with negative pressure. The concern is that the surface will heal over and leave the tunneled area that will eventually get infected and reopen. That is another reason the negative pressure dressing like the SNAP vac would be appropriate. The other option is to have Dr. Watkins re evaluate her ulcer and possibly take her to back to surgery for the closure of the ulcer. Wound cultures from 12/23/19 and 12/09/19 were negative. Wound culture from 11/18/2019 was positive for MRSA, Corynebacterium striatum, Strepsalivarius sp. salvarius and Actinomyces Odontolyticus. She was placed on Doxycycline, Clindamycin and Flagyl and has finished them. Prealbumin from 06/22/19 was 17.8. Encouraged nutritional supplementation with protein to help the healing process. Followup one week. Encouraged patient to stop smoking as it may have deleterious effects on wound healing. [id number]: [id number] Maricruz subq tissue 20 sq cm/<
[2020-03-02 08:37] VITALS: BP 113/73; PULSE 100; RESP 16; TEMP 35.9; BMI 30.9
--- NOTE | 2020-03-02 17:37 | PN.PCM_ITS ---
Type of Wound Date of Service: 03/02/20 Chief Complaint: Nonhealing ulcer left breast at [facility]. History of Wound: Surgery 06/21/19 - Bilateral breast reduction mammaplasty. She was admitted to hospital on 07/05/19 with elevated WBC and comprosed wound healing. On 07/08/19 the right breast eschar was debrided in the hospital to make wound care easier and to drain infection. Wound VAC was started along with PICC line placement and Ceftriaxone IV antibiotics. Wound culture from 07/08/19 was positive for Proteus mirabilis, Enterococcus faecalis and MRSE. Augmentin and Doxycycline were added and she has finished them. On 07/22/19, there was wound breakdown on the left breast at the [facility]. Debridement was done and a wound culture showed MRSE and Corynebacterium amycolatum. During her IV antibiotics, the Creatinine increased to 1.32 on 08/12/19. The Ceftriaxone was stopped. The following week on 08/18/19 the Creatinine improved to normal at 0.98. Repeat wound culture on 10/07/19 showed MRSA and Corynebacterium striatum. She was placed on Doxycycline and finished them. There was another wound culture on 11/18/19. It showed MRSA, Corynebacterium striatum, Strep salvarius, and Actinomyces odontolyticus. She was placed on Doxycycline, Cleocin, and Flagyl and has finished them. Wound culture done on 12/09/19 because she was having increased pain of left breast ulcer, cultures were negative for bacterial growth. Obtained a wound culture 12/23/19 which was negative for bacterial growth. It was done because there was an increase in her wound size and pain. Wound care - Silver dressing to the left breast Tzone ulcer including in the tunneled area. She developed some yeast infection symptoms and was placed on Diflucan and has finished them. Today she denies fever. She states her appetite is ok. Progress of Wound: The left breast Tzone is showing very minimal improvement. - Physical Exam Vital Signs Temp Pulse Resp BP 96.6 F L 100 16 113/73 03/02/20 08:37 03/02/20 08:37 03/02/20 08:37 03/02/20 08:37 Wound Measurements and Assessment WC - Nurse 1 - General Ulcer Measurement Start: 02/24/20 08:40 Freq: Status: Active Protocol: Activity Type Activity Date Activity User E-Sign Co-Sign Detail Recorded Client Recorded Date Recorded By Document 03/02/20 08:37 [facility] [id number] 03/02/20 08:41 [facility] 03/02/20 08:37 Wound Center Nurse 1 [Ulcer Assessment] 6-left medial breast -Combined with other wound No -Current Size (cm) - Length 0.4 -Current Size (cm) - Width 0.5 -Current Size (cm) - Depth 1.6 -Total Square Cm 0.20 -Photo Taken No -Epithelialization None Present -Tunneling No -Undermining/Tunneling No -Circular Undermining No -Exudate Amt Small -Exudate Type Serosanguineous -Wound Margin Distinct, Outline Attached -Granulation Amt Large (67-100%) -Granulation Quality Red -Slough/Fibrin No -Necrosis Amt None Present (0 %) -Texture (Flavia-wound Skin Appearance) Assessed, Scarring -Moisture (Flavia-wound Skin Appearance Assessed ) -Color (Flavia-wound Skin Appearance) Assessed -Temperature (Flavia-wound Skin No Abnormality Appearance) (Pt Warm) -Tenderness on Palpation (Flavia-wound Yes Skin Appearance) -Ulcer Cleansing Rinsed/ Irrigated with Saline -Foul Odor after Cleansing No -Anesthetic Used 5% Lidocaine Gel WC - Nurse 2 - General Ulcer CM Notes Start: 02/24/20 08:40 Freq: Status: Active Protocol: Activity Type Activity Date Activity User E-Sign Co-Sign Detail Recorded Client Recorded Date Recorded By Document 03/02/20 08:52 [id number] 03/02/20 08:53 03/02/20 08:52 Wound Center Nurse 2 [Procedure/Treatment] -Time 08:52 -Correct Patient Yes -Correct Side, Site, Position Yes -Correct Procedure Yes -Procedure Performed Yes -Type of Procedure Debridement -Clinical Debridement Subcutaneous -Post Debridement Size (cm) - Length 0.6 -Post Debridement Size (cm) - Width 0.7 -Post Debridement Size (cm) - Depth 1.6 -Total Square Cm 0.42 -Wound/Ulcer Outcome Not Healed -Ulcer Cleansing Rinsed/ Irrigated with Saline -Foul Odor after Cleansing No -Bioengineered Tissue No -Bleeding Controlled with Pressure -Offloading No -Treatment Response Procedure Tolerated Well [See Physician Procedure note for Specifics] Pain Scale: 0-10 Numeric [Pain] -Is Patient Pain Free? Yes Debridement Note Post-Debridement Measurements/Treatment WC - Nurse 2 - General Ulcer CM Notes Start: 02/24/20 08:40 Freq: Status: Active Protocol: Activity Type Activity Date Activity User E-Sign Co-Sign Detail Recorded Client Recorded Date Recorded By Document 02/24/20 08:57 [id number] 02/24/20 08:59 Document 03/02/20 08:52 [id number] 03/02/20 08:53 02/24/20 03/02/20 08:57 08:52 Wound Center Nurse 2 6-left medial breast -Time 08:58 08:52 -Correct Patient Yes Yes -Correct Side, Site, Position Yes Yes -Correct Procedure Yes Yes -Procedure Performed Yes Yes -Type of Procedure Debridement Debridement -Clinical Debridement Subcutaneous Subcutaneous -Post Debridement Size (cm) - Length 0.5 0.6 -Post Debridement Size (cm) - Width 0.9 0.7 -Post Debridement Size (cm) - Depth 1.6 1.6 -Total Square Cm 0.45 0.42 -Wound/Ulcer Outcome Not Healed Not Healed -Ulcer Cleansing Rinsed/ Rinsed/ Irrigated with Irrigated with Saline Saline -Foul Odor after Cleansing No No -Bioengineered Tissue No No -Bleeding Controlled with Pressure Pressure -Offloading No No -Treatment Response Procedure Procedure Tolerated Well Tolerated Well Pain Scale: 0-10 Numeric Is Patient Pain Free? Yes Yes Wound debrided: #6 Left breast at [facility]. Laterality: Left Wound Grade/Stage: 2. Type of Debridement: Excisional debridement Anesthesia Used: 4% Lidocaine Solution Depth: Down to and including healthy tissue, in the subcutaneous layer Percentage of wound debrided: 100 Instrument Used: 3mm curette Tissue Removed: subcutaneous tissue. Severity: Fat Layer Exposed Amount of bleeding with debridement: Mild Bleeding Controlled with: Pressure Patient tolerated procedure well Assessment/Plan Assessment: 1. Nonhealing ulcer left breast at [facility]. 2. Ulcer right breast at [facility], healed. 3. Bilateral macromastia. 4. s/p bilateral breast reduction mammaplasty. 5. Smoker. 6. MRSA. 7. Diabetes mellitus. Plan: The right breast remains healed. The left breast at [facility] ulcer remains unchanged. Continue Silver dressing to the left breast Tzone ulcer daily. The scar on the skin is closing but there is still a cavity on the inside that will probably not close without further operative debridement and complex secondary wound closure. A drain will be needed after surgery. Tissue debrided will be sent to Pathology for analysis to rule out carcinoma and to Microbiology for culture. A positive culture will necessitate antibiotic therapy. Surgery will be done under general anesthesia on an outpatient basis. Patient was informed of the risks and complications of the procedure including alternatives to surgery. These were discussed with her personally. She voices understanding and wishes to proceed. Before surgery will check another wound culture and obtain a HgbA1c. It needs to be less than 8 before proceeding with the surgery. Wound cultures from 12/23/19 and 12/09/19 were negative. Wound culture from 11/18/2019 was positive for MRSA, Corynebacterium striatum, Strepsalivarius sp. salvarius and Actinomyces Odontolyticus. She was placed on Doxycycline, Clindamycin and Flagyl and has finished them. Prealbumin from 06/22/19 was 17.8. Encouraged nutritional supplementation with protein to help the healing process. Followup 2 weeks. Encouraged patient to stop smoking as it may have deleterious effects on wound healing. We discussed the current risks associated with COVID-19. While it is understood that there is a community spread of COVID-19, the risk of love COVID-19 while at [facility] ([facility]) is very low; however, the risk cannot be completely mitigated because of the community spread of the disease. We discussed in detail the risk of exposure to and/or potential harm posed by the COVID-19 virus with having a surgery/procedure at this time versus the risk of delaying the surgery/procedure. It is not possible to know either the risk of delaying the surgery or procedure or chance of getting an infection with perfect accuracy, but a joint decision was made to proceed at this time with the scheduled surgery/procedure as indicated on the consent form. Patient was notified that we will need to comply with any screening or testing [facility] wishes to perform or that surgery may be delayed for any positive results. At the present time there is no testing for the surgeons. The hospital is working on a policy for that to have the surgeon and surgical staff tested. So she has the option to wait until the surgeon and surgical staff are tested or she can proceed with the surgery at this time before the surgeon and surgical staff are tested. As long as the pain can be temporarily controlled, the surgery can be delayed until surgeon and surgical staff testing are done. She will think about when she wants to proceed with the surgery and let us know. [id number]: [id number] Maricruz subq tissue 20 sq cm/< - ICD-10 - L98.492, N62, E11.9, F17.200, A49.02
== END 2020-03-15 23:59 ==
LOC: WC 08:30
PROVIDERS: Family Provider Family Medicine; PCP Family Medicine; Referring Provider Nurse Practitioner Family; Visit Provider Nurse Practitioner Family
DX: T81.31XA Disruption of external operation (surgical) wound, not elsewhere classified, initial encounter (principal); Y83.8 Other surgical procedures as the cause of abnormal reaction of the patient, or of later complication, without mention of misadventure at the time of the procedure; N62 Hypertrophy of breast; E11.9 Type 2 diabetes mellitus without complications; T81.89XA Other complications of procedures, not elsewhere classified, initial encounter; Z86.14 Personal history of Methicillin resistant Staphylococcus aureus infection; F17.200 Nicotine dependence, unspecified, uncomplicated
CPT/HCPCS: 11042

== ENCOUNTER 2020-03-24 13:18 | Observation (INO) | payer MEDICARE, MEDICAID, SELFPAY ==
[2020-03-16 08:41] VITALS: BMI 30.9
--- NOTE | 2020-03-23 09:40 | EKG12_ITS ---
Test Reason : KAIN OP Blood Pressure : / mmHG Vent. Rate : 094 BPM Atrial Rate : 094 BPM P-R Int : 136 ms QRS Dur : 084 ms QT Int : 362 ms P-R-T Axes : 063 035 033 degrees QTc Int : 452 ms Normal sinus rhythm Normal ECG Confirmed by BALJEET CRABTREE, ANIVAL ([id number]), book or script editor VÍCTOR IRBY ([id number]) on 03/24/2020 10:08:10 AM Referred By: Parth Watkins Confirmed By:ANIVAL DELONG MD
[2020-03-23 10:14] LABS: Hematocrit 44.4 % (37-47); Hemoglobin 14.3 g/dL (12.0-15.0); Mean Corp Hgb Conc 32.2 g/dL (32-36); Mean Corpuscular Hgb 30.6 pg (27.0-32.0); Mean Corpuscular Volume 94.9 fL (81-99); Mean Platelet Vol. 9.5 fl (6.2-12.0); Platelet Count 430 K/mm3 (150-450); RBC Distribution Width CV 13.3 % (11.6-14.6); RBC Distribution Width SD 46.3 fl (35.1-43.9); Red Blood Count 4.68 M/mm3 (4.2-5.4); White Blood Count 18.1 K/mm3 (4.4-11.0)
[2020-03-23 10:26] LABS: Hemoglobin A1c 6.5 % (3.8-5.6)
[2020-03-23 10:51] LABS: Anion Gap 5 (5-15); BUN 18 mg/dL (7-18); BUN/Creat Ratio 16.8 RATIO (10-20); Calcium,Total 9.5 mg/dL (8.5-10.1); Chloride 105 mmol/L (98-107); Creatinine, Serum 1.07 mg/dL (0.55-1.02); EST Glomerular Filtration Rate 58 mL/min (>60); Est Glom Filt Rate - Afr Amer 70 mL/min (>60); Glucose 131 mg/dL (74-106); Potassium 3.9 mmol/L (3.5-5.1); Sodium Level 138 mmol/L (136-145); Thyroid Stim Hormone (TSH) 0.86 uIU/mL (0.358-3.74)
[2020-03-24] VITALS (14 sets, daily range): BP systolic 90–127; BP diastolic 61–85; PULSE 64–91; RESP 16–18; TEMP 36.1–36.8; O2SAT 93–98; BMI 31.0
--- NOTE | 2020-03-24 00:37 | PCM.HP.BLA ---
History and Physical Date of Admission: 03/24/20 HISTORY OF PRESENT ILLNESS 49 year old woman presents with a nonhealing ulcer left breast. She underwent a bilateral breast reduction mammaplasty on 06/21/19. She developed wound healing problems that required wound care and antibiotics. The right breast healed and the left breast ulcer persisted. A wound culture in 12/05 showed MRSA and she was treated with Doxycycline. She has been on Silver dressing changes and has been seen at the Wound Center. The ulcer has been developing some undermining and it was recommended to proceed with operative debridement with complex secondary wound closure. PAST MEDICAL HISTORY Arthritis Asthma Back problem Diabetes GERD (gastroesophageal reflux disease) Gastric paresis IBS (irritable bowel syndrome) Kidney stones Migraines Sleep apnea in adult Thyroid disease COPD (chronic obstructive pulmonary disease) PAST SURGICAL HISTORY Carpal tunnel syndrome Cervical cancer Previous section gallbladder removal bilateral breast reduction mammaplasty - 06/21/19 ALLERGIES codeine nabumetone [From Relafen] Sulfa (Sulfonamide Antibiotics) pregabalin [From Lyrica] albuterol MEDICATIONS Atorvastatin Calcium [Lipitor] Cetirizine HCl [All Day Allergy] Cholecalciferol (Vitamin D3) [Vitamin D3] Duloxetine HCl Febuxostat [Uloric] Fluticasone/Vilanterol [Breo Ellipta] Irbesartan [Avapro] Levothyroxine [Synthroid] Lidocaine [Lidoderm Patch] Montelukast Sodium [Singulair] Omeprazole [Prilosec] Potassium Citrate [Potassium Citrate ER] Sodium Chloride [Saline Nasal [place]] metFORMIN HCl [Glucophage] Buprenorphine [Butrans] Gabapentin [Gralise] Liraglutide [Victoza] Phenergan Doxycycline Fluconazole Glucerna shake FAMILY HISTORY Mother - Cervical cancer Grandmother - Arthritis. Diabetes Grandfather - Bleeding disorder, Bowel disease, Heart disease Aunt - Throat cancer Father - Diabetes SOCIAL HISTORY Smoking Status: Current every day smoker alcohol intake: never substance use type: does not use REVIEW OF SYSTEMS General - Denies fever, fatigue, and weight loss. Eyes - Denies cataracts and glaucoma. ENT - Denies nasal congestion and sore throat. Endocrine - Denies excessive thirst and urination. Has thyroid disease. Skin - Denies skin cancer. Cystic lesion left cheek removed and healing well. Has inframammary intertrigo for which she uses powders for relief. Musculoskeletal - Denies joint pain, joint stiffness, weakness of muscles and joints, and arthritis. Has neck pain and thoracic back pain. Has bilateral shoulder pain from shoulder grooving from the weight of her breasts on her bra straps. Neuro - Has headaches. Cardiovascular - Denies chest pain, fatigue, and shortness of breath with exertion. Psych - Denies anxiety. Has depression. Respiratory - Denies chronic cough. Has shortness of breath. Has asthma. Patient is a smoker. Gastrointestinal - Denies nausea, vomiting, and constipation. Has some diarrhea. Hematologic - Denies abnormal bruising and bleeding. Genitourinary - Denies hematuria and urinary frequency. PHYSICAL EXAMINATION General - Alert and Oriented. Bra size was 44 DD prior to the breast reduction surgery. HEENT - PERRL. EOMI. Throat is clear. On the left cheek the scar has healed. Neck - Supple and nontender. No cervical adenopathy. No bony tenderness. Has pericervical soft tissue tenderness. Breasts - Had bilateral breast reduction mammaplasty. The right breast is healed. On the left breast at the Tzone area is an ulcer that measures 0.6 x 1.5 x 1.5 cm. Some granulation tissue seen. Lungs - Clear to auscultation. Heart - Regular rate and rhythm. Abdomen - Soft and nondistended. Extremities - FROM. No axillary adenopathy. Radial pulses are palpable. Back - No bony tenderness. There is perivertebral soft tissue tenderness especially in the thoracic area. Neuro - CN II-XII grossly intact. Psych - Normal mood and affect. ASSESSMENT 1. Nonhealing ulcer left breast at [facility]. 2. Bilateral macromastia. 3. s/p bilateral breast reduction mammaplasty. 4. Smoker. 5. MRSA. 6. Diabetes mellitus. PLAN The left breast at one ulcer remains unchanged. Continue Silver dressing to the left breast Tzone ulcer daily. The scar on the skin is closing but there is still a cavity on the inside that will probably not close without further operative debridement and complex secondary wound closure. A drain will be needed after surgery. Tissue debrided will be sent to Pathology for analysis to rule out carcinoma and to Microbiology for culture. A positive culture will necessitate antibiotic therapy. Surgery will be done under general anesthesia on an outpatient basis. Patient was informed of the risks and complications of the procedure including alternatives to surgery. These were discussed with her personally. She voices understanding and wishes to proceed. She had a wound culture back in November which showed MRSA and she was treated with Doxycycline. She had a recent HgbA1c which was 6.5. It needs to be less than 8 before proceeding with the surgery. Prealbumin from 06/22/19 was 17.8. Encouraged nutritional supplementation with protein to help the healing process. Encouraged patient to stop smoking as it may have deleterious effects on wound healing. We discussed the current risks associated with COVID-19. While it is understood that there is a community spread of COVID-19, the risk of love COVID-19 while at [facility] ([facility]) is very low; however, the risk cannot be completely mitigated because of the community spread of the disease. We discussed in detail the risk of exposure to and/or potential harm posed by the COVID-19 virus with having a surgery/procedure at this time versus the risk of delaying the surgery/procedure. It is not possible to know either the risk of delaying the surgery or procedure or chance of getting an infection with perfect accuracy, but a joint decision was made to proceed at this time with the scheduled surgery/procedure as indicated on the consent form. Patient was notified that we will need to comply with any screening or testing [facility] wishes to perform or that surgery may be delayed for any positive results. At the present time there is no testing for the surgeons. The hospital is working on a policy for that to have the surgeon and surgical staff tested. So she has the option to wait until the surgeon and surgical staff are tested or she can proceed with the surgery at this time before the surgeon and surgical staff are tested. As long as the pain can be temporarily controlled, the surgery can be delayed until surgeon and surgical staff testing are done. She has though about it and wishes to proceed with the surgery at this time. Procedure Criteria Procedure Type: Elective COVID Risk Discussion: The surgeon/proceduralist and patient have discussed in detail the risk of exposure to and/or potential harm posed by the COVID-19 virus with having a surgery/procedure at this time versus the risk of delaying the surgery/procedure. It is not possible to know either the risk of delaying the surgery or procedure or chance of getting an infection with perfect accuracy, but a joint decision was made between the patient and the surgeon/proceduralist to proceed at this time with the scheduled surgery/procedure as indicated on the consent form.
[2020-03-24] MEDS: Vancomycin IV 1,000 MG/200 ML BAG 200 MG IV (07:00)
[2020-03-24] MEDS: Lactated Ringers 1,000 ML 100 ML IV ×2 (08:46→11:16)
[2020-03-24 09:06] LABS: Bedside Glucose 178 mg/dL (70-110)
--- NOTE | 2020-03-24 10:00 | UL_PTH ---
PATIENT: GELY LACKEY LOC: MS3 U#:[id number] AGE/SX: 49/F ROOM: [facility] [place] RE03/24/[address]: Dr. Parth Watkins MD : 1970 BED: 1 DIS: 03/25/2020 SPEC #: [id number] RECD: 03/24/20 14:05 STATUS: DANA REPierce #: [id number] ALFREDO: 03/24/20 10:[address]: Parth Watkins DEPT: SURGICAL PATHOLOGY RECD BY: Lane Albright ENTERED: 03/25/20 08:17 SP TYPE: ULCER OTHR DR: Dr. Aron Palumbo MD Tissues: ULCER Procedures: Special Stain Group I Surgery Specimen Level III AFB Stain (control) GMS Stain (control) HEADER OPERATION: Revision reconstructed breast with excisional debridement MRSA PRE-OP DIAGNOSIS: Nonhealing ulcer left breast at T zone TISSUE SUBMITTED: Debridement MRSA ulcer left breast MICROSCOPIC DIAGNOSIS Debrided MRSA ulcer left breast: Pieces of skin with underlying tissue with focal ulceration, acute and chronic inflammation, granulation tissue reaction and abscess formation. Special stains for acid fast bacilli and fungi are negative for organisms; matched controls are appropriate. CHRIST:delaney 03/26/20 MICROSCOPIC DESCRIPTION Slides are reviewed. GROSS DESCRIPTION Received in fixative is one container labeled with the patient's name and designated debridement of MRSA ulcer left breast. The specimen consists of multiple fragments of skin with underlying tissue that in aggregate measure 10 x 8 x 3.5 cm. Sections do not reveal any mass lesion. Business Support Manager sections are submitted in three cassettes. / CHRIST:delaney 03/25/20 TC:2 CPT: 39961, 50955 x2
[2020-03-24] MEDS: Mupirocin Ointment 22gm Tube 1 APPLIC (11:03)
--- NOTE | 2020-03-24 11:16 | OP.PCM_ITS ---
Report of Operation Date of Procedure: 03/24/20 Pre-Operative Diagnosis: 1. 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 2. MRSA. 3. s/p bilateral breast reduction mammaplasty. 4. Smoker. 5. Diabetes mellitus. Post-Operative Diagnosis: Same. Surgery/Procedure Performed:: Revision reconstructed left breast with excisional debridement nonhealing MRSA ulcer and complex secondary wound closure and placement AmnioFill placental connective tissue powder (1000 mg). Description of Surgical Findings:: 49 year old woman presents with a nonhealing ulcer left breast. She underwent a bilateral breast reduction mammaplasty on 06/21/19. She developed wound healing problems that required wound care and antibiotics. The right breast healed and the left breast ulcer persisted. A wound culture in 12/05 showed MRSA and she was treated with Doxycycline. She has been on Silver dressing changes and has been seen at the [facility]. The ulcer has been developing some undermining and it was recommended to proceed with operative debridement with complex secondary wound closure. Patient was informed of the risks and complications of the procedure including alternatives to surgery. These were discussed with the patient personally. Patient voices understanding and wishes to proceed. Encouraged patient to stop smoking as it may have deleterious effects on wound healing. I used AmnioFill Placental Connective Tissue Powder, 1000 mg. Catalog Number - [id number]. Lot Number - [id number]. Expiration - October 16, 2024. I used Karen absorbable hemostat. Reference Number - [id number]. Lot Number - [id number]. Expiration - October 12, 2024. mobile solutions architect: Missael Carter. Type of Anesthesia:: General Specimen's removed: Left breast tissue to Pathology and Microbiology. Drains: Speedy. Estimated Blood Loss (mL): 50 ml. Description of Procedure: Patient was taken to OR in supine position and was placed under general anesthesia. The left breast was prepped and draped in the usual fashion. SCD's were placed for DVT prophylaxis. Perioperative antibiotics were given intravenously. Using xylocaine with epinephrine, the nonhealing MRSA ulcer and previous Tzone scarring was infiltrated. After waiting 5 minutes for the anesthetic to take effect, The Tzone incisional scarring was excised horizontally up to the ulcer and vertically to the nipple areolar complex. A circular incision was made around the nipple areolar complex. The nonhealing MRSA ulcer was excised and debrided down to the pectoralis muscle. Some additional scattered areas of fat necrosis was also excised and debrided. Breast skin flaps were elevated at the level of Orion's fascial down to within a cm of the chest wall. After the breast skin flaps from the central breast mound pedicle, I was able to position the central breast mound pedicle more centrally. I freed up the breast skin flaps a little more in the superior direction to allow advancement down to the horizontal incision for wound closure. Tissue that was excised and debrided was sent to Pathology for analysis to rule out carcinoma and to Microbiology for culture. A positive culture will necessitate antibiotic therapy. The left breast wound was irrigated with 0.05% Irrisept chlorhexidine solution which was followed by saline irrigation. Hemostasis was obtained with electrocautery. A size 15 Speedy drain was placed through a separate stab incision laterally and secured to the skin with 3-0 Nylon suture. I sprayed Karen absorbable hemostat into the breast wound to minimize seroma formation postoperatively. I then approximated the leading edge of the medial and lateral breast flaps to the mid portion of the horizontal incision with 2-0 Vicryl suture. The horizontal and vertical incisions were approximated with 3-0 Monocryl interrupted sutures. At the time of this portion of the wound closure, I placed AmnioFill placental connective tissue powder into the Tzone area and the area of the ulceration medially. I used 1000 mg of AmnioFill. This will help with wound healing. Utilizing a vertical limb length of 4.5 cm, I placed the circular template on the central aspect of the breast for the new position of the nipple areolar complex. Incisions were made and the nipple was brought through the keyhole incision and secured to the skin edges with 3-0 Monocryl interrupted sutures. The skin was approximated with 4-0 Prolene simple interrupted sutures around the nipple areolar complex and vertical limb length. The horizontal incision was approximated with 4-0 Prolene vertical mattress and simple interrupted sutures. Minimal tension was noted at the time of the wound closure especially in the Tzone area. Antibiotic ointment was applied to the suture lines followed by dry Kerlix gauze and a surgical bra. At the end of the procedure, there was no clinical evidence of hematoma. There was no vascular compromise on the skin. The nipple was viable. Patient tolerated the procedure well and was sent to PACU in satisfactory condition. Patient will be sent home on antibiotics and pain medication. She will keep her head elevated and be on a lifting restriction. Patient will followup in a week for a wound check and for discussion of the pathology report and the microbiology report. A positive culture will necessitate antibiotic therapy. The sutures will be removed in two weeks. Grafts/Implants Used: AmnioFill Placental Connective Tissue Powder. - Complications None. - Admit VTE Documentation VTE Present on Admission: No VTE Mechan Device Prophylaxis: SCD's VTE Pharm Prophylaxis ordered?: No Surgery Charges CPT - 05217 ICD-10 - L98.492, A49.02, E11.9, Z98.890, F17.200 04270 L98.492, A49.02, E11.9, Z98.890, F17.200
--- NOTE | 2020-03-24 11:41 | DCINST_ITS ---
You will use the following diet at home:: Calorie/Carbohydrate Controlled (specify 1200, 1400, etc) Discharge Activity: May not drive while taking narcotic pain medications., May Not Shower - until the drain is removed., - - no heavy lifting. keep head elevated. May shower in (days): 6 - until the drain is removed. May resume sexual activity in: No Restrictions Weight Bearing Status: Weight bearing as tolerated Lifting Restrictions: 20 lbs. Keep extremity elevated above heart level: - - elevate head. Call your doctor if your incision/area has: Continuous Slow Oozing, Sudden Increased Bleeding, Increased Pain/ Swelling, Increased Redness, Foul Smelling Discharge, Swelling at the incision site Call your doctor if you observe: Fever of 101 or Higher, Coldness, Increased Pain, Shortness of breath, Chest pain, Calf discomfort, Uncontrolled pain Suture Line Care: - - dry dressings daily. Change Dressing in (Days):: 1 - dry dressings daily. Cleanse incision/area with: - - may get incisions wet in the shower after the drain is removed. Drain: Suction - nciole drain to bulb suction. empty and record output daily. Allergies/Adverse Reactions: Allergies codeine Allergy (Verified 03/24/20 08:33) Rash nabumetone [From Relafen] Allergy (Verified 03/24/20 08:33) Rash Sulfa (Sulfonamide Antibiotics) Allergy (Verified 03/24/20 08:33) Rash pregabalin [From Lyrica] Adverse Reaction (Verified 03/24/20 08:33) confusion/delirium CONFUSION/DELIRIUM albuterol Adverse Reaction (Uncoded 03/24/20 08:33) Laryngospasms Medications to take at Discharge Atorvastatin Calcium [Lipitor] 40 mg PO QHS 03/05/18 Cetirizine HCl [All Day Allergy] 10 mg PO DAILY 03/05/18 Cholecalciferol (Vitamin D3) [Vitamin D3] 5,000 unit PO DAILY 03/05/18 Duloxetine HCl 60 mg PO DAILY 03/05/18 Febuxostat [Uloric] 80 mg PO DAILY 03/05/18 Fluticasone/Vilanterol [Breo Ellipta 200-25 Mcg INH] 1 puff IH DAILY 03/05/18 Lidocaine [Lidoderm Patch] 1 patch TOPICAL QHS 03/05/18 Montelukast Sodium [Singulair] 10 mg PO DAILY 03/05/18 Omeprazole [Prilosec] 40 mg PO DAILY 03/05/18 Potassium Citrate [Potassium Citrate ER] 15 meq PO DAILY PRN 03/05/18 Sodium Chloride [Saline Nasal [place]] 1 spray NS Q2H PRN 03/05/18 metFORMIN HCl [Glucophage] 1,000 mg PO DAILY 03/05/18 Buprenorphine 20 Mcg/Hr [Butrans 20 Mcg/Hr] 20 mcg TRANSDERM. SA 10/11/18 Gabapentin [Gralise] 800 mg PO TID 10/11/18 Liraglutide [Victoza] 1.8 mg SQ DINNER 04/19/19 Levothyroxine [Synthroid] 100 mcg PO DAILY 06/14/19 Irbesartan 75 mg PO QHS 07/06/19 proMETHazine tablet [Phenergan tablet] 25 mg PO 4X/DAY PRN PRN #30 tab 07/09/19 Doxycycline Monohydrate 100 mg PO BID 11/28/19 Glucerna Shake 120 ml PO TID 11/28/19 Fluconazole 150 mg PO DAILY #14 tab 01/06/20 Doxycycline [Vibramycin] 100 mg PO BID #14 cap 03/24/20 Fluconazole [Diflucan] 150 mg PO DAILY #5 tab 03/24/20 Oxycodone HCl/Acetaminophen [Percocet 5/325] 1 tablet PO Q6H PRN PRN 7 Days #28 tablet 03/24/20 The following prescriptions were given: Fluconazole [Diflucan] 150 mg PO DAILY #5 tab Transmission Status: Pending to [facility] Oxycodone HCl/Acetaminophen [Percocet 5/325] 1 tablet PO Q6H PRN PRN 7 Days #28 tablet PRN Reason: Pain Score 4-5/10 Transmission Status: Received by [facility] Doxycycline [Vibramycin] 100 mg PO BID #14 cap Transmission Status: Pending to [facility] [address] Orders to be completed after discharge: Nicotine Screen Blood Time Frame: 03/24/20, Facility: [facility], Location: Laboratory Primary Care Physician: Aron Palumbo MD [Primary Care Provider] - Test Results: Test results from this visit will be discussed in further detail at your follow- up appointment, if applicable. Please Follow Up With: Parth Watkins MD When: monday at wound center 03/30/20. call [phone] for appt. Proposed Discharge Date: 03/24/20
--- NOTE | 2020-03-24 14:15 | PCM.RX.CS ---
Consult Pharmacy has been consulted to manage selected antiobiotic: Vancomycin Type of Consult: New start Suspected Infection: Skin/Soft tissue Labs: Sodium 138 mmol/L (136-145) 03/23/20 09:32 Potassium 3.9 mmol/L (3.5-5.1) 03/23/20 09:32 Chloride 105 mmol/L (98-107) 03/23/20 09:32 Carbon Dioxide 28.0 mmol/L (21.0-32.0) 03/23/20 09:32 Anion Gap 5 (5-15) 03/23/20 09:32 BUN 18 mg/dL (7-18) 03/23/20 09:32 Creatinine 1.07 mg/dL (0.55-1.02) H 03/23/20 09:32 Est GFR (MDRD) Af Amer 70 mL/min (>60) 03/23/20 09:32 Est GFR (MDRD) Non-Af 58 mL/min (>60) L 03/23/20 09:32 BUN/Creatinine Ratio 16.8 RATIO (-20) 03/23/20 09:32 Glucose 131 mg/dL (74-106) H 03/23/20 09:32 Weight used for dosin kg Estimated Creatinine Clearance: 53ml/min Goal Trough: 10-15 mcg/mL Pharmacy Plan for Drug Dosing: NEW START IV VANCOMYCIN Consulting Physician: Roland Indication: Soft Tissue/Wound Goal Trough: 10-15 SrCr: 1.07 CrCl: 53.46 Comments: 1000mg pre op dose 03/24 @ 699 Vancomcyin Dose: 1750mg q24h starting 03/25 @ 00 Pending Level: 03/27 (did not count pre op dose) Pharmacy Service will continue to monitor and adjust dosing as required. Follow-Up Labs: Trough Vancomycin - 03/27
[2020-03-24] MEDS: Lactated Ringers 1,000 ML 60 ML IV ×2 (14:45→22:32)
[2020-03-24] MEDS: oxyCODONE 5 MG Tablet PO ×2 (16:12→22:35)
[2020-03-24] MEDS: Ensure Surgery 237 ML LIQUID PO (17:47)
[2020-03-24] MEDS: Acetaminophen 500 MG Tablet 1000 MG PO (17:48)
[2020-03-24] MEDS: Gabapentin 100 MG Capsule 200 MG PO (17:48)
[2020-03-24] MEDS: HYDROmorphone 1 MG/ML Syringe IV (17:54)
[2020-03-24 22:45] LABS: Bedside Glucose 242 mg/dL (70-110)
[2020-03-25] MEDS: Acetaminophen 500 MG Tablet 1000 MG PO ×3 (00:06→11:28)
[2020-03-25 00:15] VITALS: BP 115/64; PULSE 70; RESP 16; TEMP 36.7; O2SAT 95
[2020-03-25 04:00] VITALS: O2SAT 93
[2020-03-25 05:40] LABS: Hematocrit 38.7 % (37-47); Hemoglobin 12.6 g/dL (12.0-15.0); Mean Corp Hgb Conc 32.6 g/dL (32-36); Mean Corpuscular Volume 95.1 fL (81-99); Mean Platelet Vol. 9.6 fl (6.2-12.0); Platelet Count 370 K/mm3 (150-450); RBC Distribution Width CV 13.2 % (11.6-14.6); RBC Distribution Width SD 46.2 fl (35.1-43.9); Red Blood Count 4.07 M/mm3 (4.2-5.4); White Blood Count 23.7 K/mm3 (4.4-11.0)
[2020-03-25 05:59] LABS: Anion Gap 7 (5-15); BUN 20 mg/dL (7-18); BUN/Creat Ratio 21.6 RATIO (10-20); Calcium,Total 8.9 mg/dL (8.5-10.1); Chloride 107 mmol/L (98-107); Creatinine, Serum 0.93 mg/dL (0.55-1.02); EST Glomerular Filtration Rate 68 mL/min (>60); Est Glom Filt Rate - Afr Amer 82 mL/min (>60); Estimated Creatinine Clearance 65.12 ml/min; Glucose 144 mg/dL (74-106); Potassium 4.4 mmol/L (3.5-5.1); Prealbumin 24.4 mg/dL (20.0-40.0); Sodium Level 139 mmol/L (136-145)
[2020-03-25] MEDS: oxyCODONE 5 MG Tablet PO ×3 (06:07→16:32)
[2020-03-25 06:18] VITALS: BP 106/64; PULSE 67; RESP 18; TEMP 36.6; O2SAT 95
[2020-03-25 06:55] LABS: Bedside Glucose 142 mg/dL (70-110)
[2020-03-25 07:07] VITALS: O2SAT 94
[2020-03-25 08:28] VITALS: BP 110/59; PULSE 71; RESP 18; TEMP 37.5; O2SAT 97
[2020-03-25] MEDS: Gabapentin 100 MG Capsule 200 MG PO ×3 (08:36→16:33)
[2020-03-25] MEDS: Ensure Surgery 237 ML LIQUID PO ×2 (08:36→11:28)
[2020-03-25] MEDS: HYDROmorphone 1 MG/ML Syringe IV (08:36)
[2020-03-25 11:50] LABS: Bedside Glucose 304 mg/dL (70-110)
[2020-03-25] MEDS: Insulin Lispro 100 UNIT/ML INSULN.PEN SC (12:51)
[2020-03-25 14:41] VITALS: BP 119/68; PULSE 86; RESP 18; TEMP 37; O2SAT 96
[2020-03-25 16:55] LABS: Bedside Glucose 180 mg/dL (70-110)
--- NOTE | 2020-03-25 17:15 | PCM.PN.SRG ---
Subjective: Postop #1 Patient is resting comfortably. She spent the night because of increased pain that necessitated IV analgesia. - Physical Exam Vitals/I&O's: Vital Signs Temp Pulse Resp BP Pulse Ox 98.6 F 86 18 119/68 96 03/25/20 14:41 03/25/20 14:41 03/25/20 14:41 03/25/20 14:41 03/25/20 14:41 Oxygen Delivery Method Room Air Weight: 186 lb 8.177 oz Body Mass Index (BMI) 31.0 Finger Stick Blood Glucose 366 Intake and Output for Last 24 Hours 03/23/20 03/24/20 03/25/20 23:59 23:59 23:59 Intake Total 2867 / 2867 2291 / 2291 Output Total 650 / 650 2110 / 2110 Balance 2217 / 2217 181 / 181 Drainage 50 ml yesterday, 60 ml today. General: Alert, Oriented x3 HEENT: PERRLA, EOMI Neck: Supple Abdomen: Soft, Non-Distended Skin: Incision - left breast incisions are dry and intact. No vascular compromise noted on the breast skin flaps. No clinical evidence of hematoma. Nipple is viable. Neurological: Cranial nerves II-XII grossly intact Psych/Mental Status: Normal Affect, Appropriate Microbiology Past 72 Hours 03/24/20 11:06 Tissue - Breast Gram Stain - Final 03/24/20 11:06 Tissue - Breast Wound Culture - Preliminary Staphylococcus aureus Laboratory Results 03/24/20 22:38: POC Glucose 242 H 03/25/20 05:15: Sodium 139, Potassium 4.4, Chloride 107, Carbon Dioxide 25.0, Anion Gap 7, BUN 20 H, Creatinine 0.93, Estim Creat Clear Calc 65.12, Est GFR (MDRD) Af Amer 82, Est GFR (MDRD) Non-Af 68, BUN/Creatinine Ratio 21.6 H, Glucose 144 H, Calcium 8.9, Prealbumin 24.4 03/25/20 05:15: WBC 23.7 H, RBC 4.07 L, Hgb 12.6, Hct 38.7, MCV 95.1, MCH 31.0, MCHC 32.6, RDW Std Deviation 46.2 H, RDW Coeff of Cipriano 13.2, Plt Count 370, MPV 9.6 06/10/20 06:13: POC Glucose 142 H 03/25/20 11:35: POC Glucose 304 H 03/25/20 16:31: POC Glucose 180 H Current Medications Acetaminophen (Tylenol) 1,000 mg PO Q6 [facility] Last Admin: 03/25/20 11:28 Dose: 1,000 mg Documented by: Albuterol Sulfate (Ventolin Aerosols) 2.5 mg INHALATION Q2H PRN PRN PRN Reason: SOB &/OR WHEEZING Docusate Sodium (Colace) 100 mg PO BID [facility] Last Admin: 03/25/20 08:29 Dose: Not Given Documented by: Enoxaparin Sodium (Lovenox) 40 mg SC DAILY [facility] Last Admin: 03/25/20 08:30 Dose: Not Given Documented by: Enteral Nutritional Formula (Ensure Surgery) 237 ml PO TIDCM [facility] Last Admin: 03/25/20 11:28 Dose: 237 ml Documented by: Gabapentin (Neurontin) 200 mg PO TIDCM [facility] Last Admin: 03/25/20 16:33 Dose: 200 mg Documented by: Hydromorphone HCl (Dilaudid Inj) 0.5 - 1 mg IV Q3H PRN PRN PRN Reason: Pain Score 6-10/10 Last Admin: 03/25/20 08:36 Dose: 1 mg Documented by: Lactated Ringer's () 1,000 mls @ 60 mls/hr IV .[id number] [facility] Last Infusion: 03/25/20 16:37 Dose: Infused Documented by: Vancomycin IV Pharmacy to Dose (1 ea/ Sodium Chloride) 500 mls @ 250 mls/hr IV X1 PRN; Protocol PRN Reason: Rx to Dose Vancomycin HCl 1,750 mg/ (Sodium Chloride) 535 mls @ 250 mls/hr IV Q24H [facility] Last Infusion: 03/25/20 08:20 Dose: Infused Documented by: Sodium Chloride () 250 mls @ 15 mls/hr IV .[id number] PRN PRN Reason: Saline Flush Sodium Chloride () 250 mls @ 15 mls/hr IV .[id number] PRN PRN Reason: Additional IVPB Infusion Insulin Human Lispro (Humalog Kwikpen (Bkc)) 0 unit SC ACHS [facility]; Protocol Last Admin: 03/25/20 16:38 Dose: Not Given Documented by: Magnesium Oxide (Mag-Ox 400) 400 mg PO BID PRN PRN PRN Reason: Constipation Ondansetron HCl (Zofran Odt) 4 mg PO Q6H PRN PRN PRN Reason: NAUSEA Oxycodone HCl (Oxyir) 5 - 10 mg PO Q4H PRN PRN PRN Reason: Pain Score 4-5/10 Last Admin: 03/25/20 16:32 Dose: 10 mg Documented by: Sodium Chloride () 10 - 40 ml IV UD PRN PRN Reason: SALINE FLUSH Medical Necessity - Tobacco Use Smoking Status: Current some day smoker Tobacco Use: Cigarettes Assessment/Plan All Active Problems (Last Reviewed 06/24/19 @ 16:39 by Deedee Newton) Encephalopathy acute (Acute) Acute cholecystitis (Resolved) Gallbladder rupture (Resolved) Respiratory failure (Resolved) Severe sepsis (Resolved) Surgical wound dehiscence (Resolved) Wound infection after surgery (Resolved) 1. 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 2. MRSA. 3. s/p bilateral breast reduction mammaplasty. 4. Smoker. 5. Diabetes mellitus. 6. s/p revision reconstructed left breast with excisional debridement nonhealing MRSA ulcer and complex secondary wound closure and placement AmnioFill placental connective tissue powder (1000 mg). Patient tolerating po analgesia. Incisions are dry and intact. No clinical evidence of hematoma. Nipple is viable. Operative culture shows Staphylococcus aureus. Was treated with Vancomycin perioperatively. Will send home on Doxycycline. Prealbumin was 24.4. Encourage nutritional supplementation with protein to help the healing process. Discharge home today. Scripts were already sent in yesterday for [Doxycycline, Fluconazole, and Percocet (28 tabs)]. Will send in additional script for Dilaudid for severe pain (20 tabs). Keep head elevated. No heavy lifting. Followup at Wound Center 03/30/20. Will remove the drain in 10-14 days. Encouraged patient to stop smoking as it may have deleterious effects on wound healing.
[2020-03-29 13:24] LABS: Cotinine Screen Blood 268.6 ng/mL (.); Nicotine Blood 32.6 ng/mL (.)
== END 2020-03-25 18:04 | disposition home or self-care (01) ==
LOC: SDC 15:51 → MS3 15:51
PROVIDERS: Anesthesiology; Admitting Provider Surgery; PCP Family Medicine; Referring Provider Surgery; Visit Provider Surgery
PROC: (CPT 13160; principal; 2020-03-24 09:45)
DX: L98.492 Non-pressure chronic ulcer of skin of other sites with fat layer exposed (principal); N61.1 Abscess of the breast and nipple; G47.30 Sleep apnea, unspecified; J44.9 Chronic obstructive pulmonary disease, unspecified; B95.62 Methicillin resistant Staphylococcus aureus infection as the cause of diseases classified elsewhere; E11.9 Type 2 diabetes mellitus without complications; K21.9 Gastro-esophageal reflux disease without esophagitis; M19.90 Unspecified osteoarthritis, unspecified site; K58.9 Irritable bowel syndrome, unspecified; N62 Hypertrophy of breast; F41.9 Anxiety disorder, unspecified; F32.9 Major depressive disorder, single episode, unspecified; K76.0 Fatty (change of) liver, not elsewhere classified; E03.9 Hypothyroidism, unspecified; F17.210 Nicotine dependence, cigarettes, uncomplicated; Z98.890 Other specified postprocedural states; Z79.899 Other long term (current) drug therapy; Z79.84 Long term (current) use of oral hypoglycemic drugs; Z79.51 Long term (current) use of inhaled steroids
CPT/HCPCS: 00402; 13160; 19380; 36415; 80048; 80323; 82962; 83036; 84134; 84443; 85027; 87070; 87075; 87077; 87102; 87176; 87186; 87205; 87206; 87635; 88304; 88312; 93005; 94762; 96365; 96366; 96375; 96376; 99218; 99251; 99406; G2023; J7040; J7120; G0378; G0379; G0463; J2405; U0003

== ENCOUNTER 2020-04-13 09:00 | Outpatient (RCR) | payer MEDICARE, MEDICAID, SELFPAY ==
[2020-03-16 00:22] VITALS: BP 113/73; PULSE 100; RESP 16; TEMP 35.9
[2020-03-16 08:41] VITALS: BP 133/82; PULSE 94; RESP 18; TEMP 36.3; BMI 30.9
--- NOTE | 2020-03-16 11:28 | PCM.WC.PN ---
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 Status: Chronic Current Visit: Yes Code(s): L98.492 - Non-pressure chronic ulcer of skin of other sites with fat layer exposed Comment: nonhealing ulcers bilateral breasts at [facility] (2) MRSA (methicillin resistant Staphylococcus aureus) infection Status: Chronic Current Visit: Yes Code(s): A49.02 - Methicillin resistant Staphylococcus aureus infection, unspecified site (3) Type 2 diabetes mellitus Status: Chronic Current Visit: Yes Code(s): E11.9 - Type 2 diabetes mellitus without complications (4) Smoker Status: Chronic Current Visit: Yes Code(s): F17.200 - Nicotine dependence, unspecified, uncomplicated Type of Wound Date of Service: 03/16/20 Chief Complaint: Nonhealing ulcer left breast at [facility]. History of Wound: Surgery 06/21/19 - Bilateral breast reduction mammaplasty. She was admitted to hospital on 07/05/19 with elevated WBC and comprosed wound healing. On 07/08/19 the right breast eschar was debrided in the hospital to make wound care easier and to drain infection. Wound VAC was started along with PICC line placement and Ceftriaxone IV antibiotics. Wound culture from 07/08/19 was positive for Proteus mirabilis, Enterococcus faecalis and MRSE. Augmentin and Doxycycline were added and she has finished them. On 07/22/19, there was wound breakdown on the left breast at the [facility]. Debridement was done and a wound culture showed MRSE and Corynebacterium amycolatum. During her IV antibiotics, the Creatinine increased to 1.32 on 08/12/19. The Ceftriaxone was stopped. The following week on 08/18/19 the Creatinine improved to normal at 0.98. Repeat wound culture on 10/07/19 showed MRSA and Corynebacterium striatum. She was placed on Doxycycline and finished them. There was another wound culture on 11/18/19. It showed MRSA, Corynebacterium striatum, Strep salvarius, and Actinomyces odontolyticus. She was placed on Doxycycline, Cleocin, and Flagyl and has finished them. Wound culture done on 12/09/19 because she was having increased pain of left breast ulcer, cultures were negative for bacterial growth. Obtained a wound culture 12/23/19 which was negative for bacterial growth. It was done because there was an increase in her wound size and pain. Wound care - Silver dressing to the left breast Tzone ulcer including in the tunneled area. She developed some yeast infection symptoms and was placed on Diflucan and has finished them. Today she denies fever. She states her appetite is ok. Progress of Wound: The left breast Tzone is showing very minimal improvement. - Physical Exam Vital Signs Temp Pulse Resp BP 97.4 F L 94 18 133/82 H 03/16/20 08:41 03/16/20 08:41 03/16/20 08:41 03/16/20 08:41 General: Alert, Oriented x3, Cooperative HEENT: Atraumatic Oral: Moist Mucosa Lungs: Normal air movement Cardiovascular: Regular rate Extremities: No edema Skin: Ulcer/ Wound - Left breast t zone ulcer Wound Measurements and Assessment WC - Nurse 1 - General Ulcer Measurement Start: 03/16/20 08:39 Freq: Status: Active Protocol: Activity Type Activity Date Activity User E-Sign Co-Sign Detail Recorded Client Recorded Date Recorded By Document 03/16/20 08:39 [id number] 03/16/20 08:41 RB 03/16/20 08:39 Wound Center Nurse 1 [Ulcer Assessment] 6-left medial breast -Combined with other wound No -Current Size (cm) - Length 1 -Current Size (cm) - Width 1.3 -Current Size (cm) - Depth 1.9 -Total Square Cm 1.3 -Photo Taken Yes -Tunneling No -Undermining/Tunneling No -Circular Undermining No -Exudate Amt Small -Exudate Type Serosanguineous -Wound Margin Thickened & Rolled Under -Granulation Amt Medium (34-66%) -Granulation Quality [place] -Slough/Fibrin Yes -Necrosis Amt Small (1-33%) -Necrotic Tissue Type Adherent Slough -Structure Exposed N/A -Texture (Flavia-wound Skin Appearance) Assessed, Scarring -Moisture (Flavia-wound Skin Appearance Assessed ) -Color (Flavia-wound Skin Appearance) Assessed -Temperature (Flavia-wound Skin No Abnormality Appearance) (Pt Warm) -Tenderness on Palpation (Flavia-wound No Skin Appearance) -Ulcer Cleansing Wound Cleanser -Foul Odor after Cleansing No -Anesthetic Used 5% Lidocaine Gel WC - Nurse 2 - General Ulcer CM Notes Start: 03/16/20 08:39 Freq: Status: Active Protocol: Activity Type Activity Date Activity User E-Sign Co-Sign Detail Recorded Client Recorded Date Recorded By Document 03/16/20 08:58 PL [id number] 03/16/20 08:59 PL 03/16/20 08:58 Wound Center Nurse 2 [Procedure/Treatment] -Time 08:47 -Correct Patient Yes -Correct Side, Site, Position Yes -Correct Procedure Yes -Procedure Performed Yes -Type of Procedure Debridement -Clinical Debridement Subcutaneous -Post Debridement Size (cm) - Length 0.6 -Post Debridement Size (cm) - Width 1.5 -Post Debridement Size (cm) - Depth 1.5 -Total Square Cm 0.90 -Wound/Ulcer Outcome Not Healed -Ulcer Cleansing Rinsed/ Irrigated with Saline -Foul Odor after Cleansing No -Bleeding Controlled with Pressure [See Physician Procedure note for Specifics] Pain Scale: 0-10 Numeric [Pain] -Is Patient Pain Free? Yes Musculoskeletal: Tenderness Neurological: Neuro grossly intact Psych/Mental Status: Normal Affect, Appropriate Debridement Note Post-Debridement Measurements/Treatment WC - Nurse 2 - General Ulcer CM Notes Start: 03/16/20 08:39 Freq: Status: Active Protocol: Activity Type Activity Date Activity User E-Sign Co-Sign Detail Recorded Client Recorded Date Recorded By Document 03/16/20 08:58 PL [id number] 03/16/20 08:59 PL 03/16/20 08:58 Wound Center Nurse 2 6-left medial breast -Time 08:47 -Correct Patient Yes -Correct Side, Site, Position Yes -Correct Procedure Yes -Procedure Performed Yes -Type of Procedure Debridement -Clinical Debridement Subcutaneous -Post Debridement Size (cm) - Length 0.6 -Post Debridement Size (cm) - Width 1.5 -Post Debridement Size (cm) - Depth 1.5 -Total Square Cm 0.90 -Wound/Ulcer Outcome Not Healed -Ulcer Cleansing Rinsed/ Irrigated with Saline -Foul Odor after Cleansing No -Bleeding Controlled with Pressure Pain Scale: 0-10 Numeric Is Patient Pain Free? Yes Wound debrided: Breast t-zone ulcer Laterality: Left Type of Debridement: Excisional debridement Anesthesia Used: 4% Lidocaine Solution, 5% Lidocaine Gel Depth: Down to and including healthy tissue, in the subcutaneous layer Percentage of wound debrided: 100 Instrument Used: 3mm curette Tissue Removed: Subcutaneous tissue and slough Severity: Fat Layer Exposed Amount of bleeding with debridement: Mild Bleeding Controlled with: Pressure Patient tolerated procedure well Assessment/Plan Active Problems MRSA (methicillin resistant Staphylococcus aureus) infection (Chronic) Chronic skin ulcer with fat layer exposed (Chronic) nonhealing ulcers bilateral breasts at [facility] Type 2 diabetes mellitus (Chronic) Smoker (Chronic) Assessment: 1. Nonhealing ulcer left breast at [facility]. 2. Ulcer right breast at [facility], healed. 3. Bilateral macromastia. 4. s/p bilateral breast reduction mammaplasty. 5. Smoker. 6. MRSA. 7. Diabetes mellitus. Plan: The right breast remains healed. The left breast at [facility] ulcer remains unchanged. Continue Silver dressing to the left breast [facility] ulcer daily. The scar on the skin is closing but there is still a cavity on the inside that will probably not close without further operative debridement and complex secondary wound closure. A drain will be needed after surgery. Tissue debrided will be sent to Pathology for analysis to rule out carcinoma and to Microbiology for culture. A positive culture will necessitate antibiotic therapy. Surgery will be done under general anesthesia on an outpatient basis. Patient was informed of the risks and complications of the procedure including alternatives to surgery. These were discussed with her personally. She voices understanding and wishes to proceed. Before surgery will check another wound culture and obtain a HgbA1c. It needs to be less than 8 before proceeding with the surgery. Wound cultures from 12/23/19 and 12/09/19 were negative. Wound culture from 11/18/2019 was positive for MRSA, Corynebacterium striatum, Strepsalivarius sp. salvarius and Actinomyces Odontolyticus. She was placed on Doxycycline, Clindamycin and Flagyl and has finished them. Prealbumin from 06/22/19 was 17.8. Encouraged nutritional supplementation with protein to help the healing process. Followup 2 weeks. Encouraged patient to stop smoking as it may have deleterious effects on wound healing. We discussed the current risks associated with COVID-19. While it is understood that there is a community spread of COVID-19, the risk of love COVID-19 while at [facility] ([facility]) is very low; however, the risk cannot be completely mitigated because of the community spread of the disease. We discussed in detail the risk of exposure to and/or potential harm posed by the COVID-19 virus with having a surgery/procedure at this time versus the risk of delaying the surgery/procedure. It is not possible to know either the risk of delaying the surgery or procedure or chance of getting an infection with perfect accuracy, but a joint decision was made to proceed at this time with the scheduled surgery/procedure as indicated on the consent form. Patient was notified that we will need to comply with any screening or testing [facility] wishes to perform or that surgery may be delayed for any positive results. At the present time there is no testing for the surgeons. The hospital is working on a policy for that to have the surgeon and surgical staff tested. So she has the option to wait until the surgeon and surgical staff are tested or she can proceed with the surgery at this time before the surgeon and surgical staff are tested. As long as the pain can be temporarily controlled, the surgery can be delayed until surgeon and surgical staff testing are done. She is scheduled for surgery 03/24/20. Follow up in 2 weeks to the wound center. [id number]: [id number] Maricruz subq tissue 20 sq cm/<
[2020-03-30 09:04] VITALS: BP 174/86; PULSE 85; RESP 18; TEMP 36.6; BMI 30.9
--- NOTE | 2020-03-30 09:10 | WC ---
SUTURES AND MERYL DRAIN INTACT TO POST OP SITE.
--- NOTE | 2020-03-30 14:39 | PN.PCM_ITS ---
Type of Wound Date of Service: 03/30/20 Chief Complaint: Nonhealing ulcer left breast at [facility], recent surgical closure 03/24/20. History of Wound: Surgery 03/24/20 - Revision reconstructed left breast with excisional debridement nonhealing MRSA ulcer and complex secondary wound closure and placement AmnioFill placental connective tissue powder (1000 mg). Wound care - operative dressing. Operative culture - MRSA. She was placed on Doxycycline. Prealbumin from 03/25/20 was 24.4. Encourage nutritional supplementation with protein to help the healing process. HgbA1c from 03/23/20 was 6.5. Today she denies fever. Her appetite is ok. Progress of Wound: Recent surgery 03/24/20 for surgical closure. - Physical Exam Vital Signs Temp Pulse Resp BP 98 F 85 18 174/86 H 03/30/20 09:04 03/30/20 09:04 03/30/20 09:04 03/30/20 09:04 Wound Measurements and Assessment WC - Nurse 1 - General Ulcer Measurement Start: 03/16/20 08:39 Freq: Status: Active Protocol: Activity Type Activity Date Activity User E-Sign Co-Sign Detail Recorded Client Recorded Date Recorded By Document 03/30/20 09:04 [facility] [id number] 03/30/20 09:10 [facility] 03/30/20 09:04 Wound Center Nurse 1 [Ulcer Assessment] 6-left breast at [facility] -Combined with other wound No -Current Size (cm) - Length 0.1 -Current Size (cm) - Width 0.1 -Current Size (cm) - Depth 0.1 -Total Square Cm 0.01 -Date of Last Picture (Recall this 03/30/20 field) -Photo Taken Yes -Tunneling No -Undermining/Tunneling No -Circular Undermining No -Exudate Amt None Present -Temperature (Flavia-wound Skin No Abnormality Appearance) (Pt Warm) -Tenderness on Palpation (Flavia-wound No Skin Appearance) -Ulcer Cleansing soapy water -Foul Odor after Cleansing No -Anesthetic Used 4% Lidocaine Solution WC - Nurse 2 - General Ulcer CM Notes Start: 03/16/20 08:39 Freq: Status: Active Protocol: Activity Type Activity Date Activity User E-Sign Co-Sign Detail Recorded Client Recorded Date Recorded By Document 03/30/20 09:27 [id number] 03/30/20 09:28 03/30/20 09:27 Wound Center Nurse 2 [Procedure/Treatment] -Correct Patient No -Correct Side, Site, Position No -Correct Procedure No -Procedure Performed No -Wound/Ulcer Outcome Not Healed [See Physician Procedure note for Specifics] Pain Scale: 0-10 Numeric [Pain] -Is Patient Pain Free? Yes Debridement Note Post-Debridement Measurements/Treatment WC - Nurse 2 - General Ulcer CM Notes Start: 03/16/20 08:39 Freq: Status: Active Protocol: Activity Type Activity Date Activity User E-Sign Co-Sign Detail Recorded Client Recorded Date Recorded By Document 03/16/20 08:58 PL [id number] 03/16/20 08:59 PL Document 03/30/20 09:27 [id number] 03/30/20 09:28 03/16/20 03/30/20 08:58 09:27 Wound Center Nurse 2 6-left breast at [facility] -Time 08:47 -Correct Patient Yes No -Correct Side, Site, Position Yes No -Correct Procedure Yes No -Procedure Performed Yes No -Type of Procedure Debridement -Clinical Debridement Subcutaneous -Post Debridement Size (cm) - Length 0.6 -Post Debridement Size (cm) - Width 1.5 -Post Debridement Size (cm) - Depth 1.5 -Total Square Cm 0.90 -Wound/Ulcer Outcome Not Healed Not Healed -Ulcer Cleansing Rinsed/ Irrigated with Saline -Foul Odor after Cleansing No -Bleeding Controlled with Pressure Pain Scale: 0-10 Numeric Is Patient Pain Free? Yes Yes Wound debrided: #6 Left breast at [facility]. Laterality: Left Wound Grade/Stage: 2. No debridement was completed today - patient had surgical closure 03/24/20. Assessment/Plan Assessment: 1. Nonhealing ulcer left breast at [facility], recent surgical closure 03/24/20. 2. MRSA. 3. s/p bilateral breast reduction mammaplasty. 4. Smoker. 5. Diabetes mellitus. 6. s/p revision reconstructed left breast with excisional debridement nonhealing MRSA ulcer and complex secondary wound closure and placement AmnioFill placental connective tissue powder (1000 mg). Plan: Incisions are dry and intact. No vascular compromise noted on the breast skin flaps. Nipple is viable. The left breast drain was removed today without difficulty. Operative culture showed MRSA. Continue the Doxycycline. Renewed it for 3 weeks with a refill. Prealbumin from 03/25/20 was 24.4. Encourage nutritional supplementation with protein to help the healing process. HgbA1c from 03/23/20 was 6.5. Continue antibiotic ointment daily to the suture lines. Followup one week. Will remove the nipple sutures at that time. The remaining sutures in the Tzone will be removed in 2 weeks. Encouraged the patient to stop smoking as it may have deleterious effects on wound healing.
[2020-04-06 09:34] VITALS: BP 143/79; PULSE 96; RESP 18; TEMP 37.1; BMI 30.9
--- NOTE | 2020-04-06 11:14 | PCM.WC.PN ---
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 Status: Chronic Current Visit: Yes Code(s): L98.492 - Non-pressure chronic ulcer of skin of other sites with fat layer exposed Comment: nonhealing ulcers bilateral breasts at [facility] (2) MRSA (methicillin resistant Staphylococcus aureus) infection Status: Chronic Current Visit: Yes Code(s): A49.02 - Methicillin resistant Staphylococcus aureus infection, unspecified site (3) Type 2 diabetes mellitus Status: Chronic Current Visit: Yes Code(s): E11.9 - Type 2 diabetes mellitus without complications (4) Smoker Status: Chronic Current Visit: Yes Code(s): F17.200 - Nicotine dependence, unspecified, uncomplicated Type of Wound Date of Service: 04/06/20 Chief Complaint: Nonhealing ulcer left breast at [facility], recent surgical closure 03/24/20. History of Wound: Surgery 03/24/20 - Revision reconstructed left breast with excisional debridement nonhealing MRSA ulcer and complex secondary wound closure and placement AmnioFill placental connective tissue powder (1000 mg). Wound care - Removed sutures around the nipple and half of the sutures in the T-zone. Antibiotic ointment to the suture line. Operative culture - MRSA. She was placed on Doxycycline. Prealbumin from 03/25/20 was 24.4. Encourage nutritional supplementation with protein to help the healing process. HgbA1c from 03/23/20 was 6.5. Today she denies fever. Her appetite is ok. Progress of Wound: Recent surgery 03/24/20 for surgical closure. Incisions dry and intact. - Physical Exam Vital Signs Temp Pulse Resp BP 98.7 F 96 18 143/79 H 04/06/20 09:34 04/06/20 09:34 04/06/20 09:34 04/06/20 09:34 General: Alert, Oriented x3, Cooperative HEENT: Atraumatic Oral: Moist Mucosa Lungs: Normal air movement Cardiovascular: Regular rate Extremities: Capillary Refill Less than 3 Seconds Skin: Ulcer/ Wound - Left breast incision. Sutures removed from around the nipple and half of the sutures were removed from the T-zone. Wound Measurements and Assessment WC - Nurse 1 - General Ulcer Measurement Start: 03/16/20 08:39 Freq: Status: Active Protocol: Activity Type Activity Date Activity User E-Sign Co-Sign Detail Recorded Client Recorded Date Recorded By Document 04/06/20 09:34 [facility] [id number] 04/06/20 09:38 [facility] 04/06/20 09:34 Wound Center Nurse 1 [Ulcer Assessment] 6-left medial breast -Combined with other wound No -Current Size (cm) - Length 0.1 -Current Size (cm) - Width 0.1 -Current Size (cm) - Depth 0.1 -Total Square Cm 0.01 -Photo Taken No -Tunneling No -Undermining/Tunneling No -Circular Undermining No -Exudate Amt None Present -Texture (Flavia-wound Skin Appearance) Assessed, Scarring -Moisture (Flavia-wound Skin Appearance Assessed ) -Color (Flavia-wound Skin Appearance) Assessed -Temperature (Flavia-wound Skin No Abnormality Appearance) (Pt Warm) -Tenderness on Palpation (Flavia-wound Yes Skin Appearance) -Ulcer Cleansing Rinsed/ Irrigated with Saline -Foul Odor after Cleansing No -Anesthetic Used 4% Lidocaine Solution - Nurse 2 - General Ulcer CM Notes Start: 03/16/20 08:39 Freq: Status: Active Protocol: Activity Type Activity Date Activity User E-Sign Co-Sign Detail Recorded Client Recorded Date Recorded By Document 04/06/20 09:51 [id number] 04/06/20 09:59 04/06/20 09:51 Wound Center Nurse 2 [Procedure/Treatment] -Correct Patient No -Correct Side, Site, Position No -Correct Procedure No -Procedure Performed No -Wound/Ulcer Outcome Not Healed -Offloading No -Treatment Response Procedure Tolerated Well [See Physician Procedure note for Specifics] Pain Scale: 0-10 Numeric [Pain] -Is Patient Pain Free? Yes Musculoskeletal: No Tenderness to Palpation of Joints or Extremities Neurological: Neuro grossly intact Psych/Mental Status: Normal Affect, Appropriate Debridement Note Post-Debridement Measurements/Treatment - Nurse 2 - General Ulcer CM Notes Start: 03/16/20 08:39 Freq: Status: Active Protocol: Activity Type Activity Date Activity User E-Sign Co-Sign Detail Recorded Client Recorded Date Recorded By Document 03/16/20 08:58 PL [id number] 03/16/20 08:59 PL Document 03/30/20 09:27 [id number] 03/30/20 09:28 Document 04/06/20 09:51 [id number] 04/06/20 09:59 06/11/0403/30/20 04/06/20 08:58 09:27 09:51 Wound Center Nurse 2 6-left medial breast -Time 08:47 -Correct Patient Yes No No -Correct Side, Site, Position Yes No No -Correct Procedure Yes No No -Procedure Performed Yes No No -Type of Procedure Debridement -Clinical Debridement Subcutaneous -Post Debridement Size (cm) - Length 0.6 -Post Debridement Size (cm) - Width 1.5 -Post Debridement Size (cm) - Depth 1.5 -Total Square Cm 0.90 -Wound/Ulcer Outcome Not Healed Not Healed Not Healed -Ulcer Cleansing Rinsed/ Irrigated with Saline -Foul Odor after Cleansing No -Bleeding Controlled with Pressure -Offloading No -Treatment Response Procedure Tolerated Well Pain Scale: 0-10 Numeric Is Patient Pain Free? Yes Yes Yes No debridement was completed today Assessment/Plan Active Problems MRSA (methicillin resistant Staphylococcus aureus) infection (Chronic) Chronic skin ulcer with fat layer exposed (Chronic) nonhealing ulcers bilateral breasts at [facility] Type 2 diabetes mellitus (Chronic) Smoker (Chronic) Assessment: 1. Nonhealing ulcer left breast at [facility], recent surgical closure 03/24/20. 2. MRSA. 3. s/p bilateral breast reduction mammaplasty. 4. Smoker. 5. Diabetes mellitus. 6. s/p revision reconstructed left breast with excisional debridement nonhealing MRSA ulcer and complex secondary wound closure and placement AmnioFill placental connective tissue powder (1000 mg). Plan: Incisions are dry and intact. No vascular compromise noted on the breast skin flaps. Nipple is viable. Sutures removed from around the left nipple and half of the sutures removed from the T-zone. Operative culture showed MRSA. Continue the Doxycycline. Prealbumin from 03/25/20 was 24.4. Encourage nutritional supplementation with protein to help the healing process. HgbA1c from 03/23/20 was 6.5. Continue antibiotic ointment daily to the suture lines. Followup one week. The remaining sutures in the [facility] will be removed next week. Encouraged the patient to stop smoking as it may have deleterious effects on wound healing. [id number]: [id number] Global Visit
[2020-04-13 09:11] VITALS: BP 126/73; PULSE 100; RESP 20; TEMP 36.7; BMI 30.9
--- NOTE | 2020-04-13 15:42 | PCM.WC.PN ---
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 Status: Chronic Code(s): L98.492 - Non-pressure chronic ulcer of skin of other sites with fat layer exposed Comment: nonhealing ulcers bilateral breasts at [facility] (2) MRSA (methicillin resistant Staphylococcus aureus) infection Status: Chronic Code(s): A49.02 - Methicillin resistant Staphylococcus aureus infection, unspecified site (3) Type 2 diabetes mellitus Status: Chronic Code(s): E11.9 - Type 2 diabetes mellitus without complications (4) Smoker Status: Chronic Code(s): F17.200 - Nicotine dependence, unspecified, uncomplicated Type of Wound Date of Service: 04/13/20 Chief Complaint: Nonhealing ulcer left breast at [facility], recent surgical closure 03/24/20. History of Wound: Surgery 03/24/20 - Revision reconstructed left breast with excisional debridement nonhealing MRSA ulcer and complex secondary wound closure and placement AmnioFill placental connective tissue powder (1000 mg). Wound care - Removed remaining sutures in the T-zone. Collagen hydrogel to the medial fat necrosis area. Operative culture - MRSA. She was placed on Doxycycline. Prealbumin from 03/25/20 was 24.4. Encourage nutritional supplementation with protein to help the healing process. HgbA1c from 03/23/20 was 6.5. Today she denies fever. Her appetite is ok. Progress of Wound: Recent surgery 03/24/20 for surgical closure. Incisions dry and intact. - Physical Exam Vital Signs Temp Pulse Resp BP 98.1 F 100 20 H 126/73 H 04/13/20 09:11 04/13/20 09:11 04/13/20 09:11 04/13/20 09:11 General: Alert, Oriented x3, Cooperative HEENT: Atraumatic Oral: Moist Mucosa Lungs: Normal air movement Cardiovascular: Regular rate Extremities: Capillary Refill Less than 3 Seconds Skin: Incision - Left breast Tzone and nipple incision is dry and intact. Remaining sutures removed. There is a small 0.3 cm area of separation on the medial horizontal incision showing small amount of adipose tissue. No redness or drainage. Nipple viable. Wound Measurements and Assessment WC - Nurse 1 - General Ulcer Measurement Start: 03/16/20 08:39 Freq: Status: Active Protocol: Activity Type Activity Date Activity User E-Sign Co-Sign Detail Recorded Client Recorded Date Recorded By Document 04/13/20 09:11 DL [id number] 04/13/20 09:15 DL 04/13/20 09:11 Wound Center Nurse 1 [Ulcer Assessment] 6-left medial breast/Incision -Current Size (cm) - Length 0.1 -Current Size (cm) - Width 0.1 -Current Size (cm) - Depth 0.1 -Total Square Cm 0.01 -Photo Taken No -Exudate Amt None Present -Wound Margin Flat & Intact -Granulation Amt Large (67-100%) -Granulation Quality Granite -Necrosis Amt None Present (0 %) -Texture (Flavia-wound Skin Appearance) Scarring -Moisture (Flavia-wound Skin Appearance No Abnormality ) -Color (Flavia-wound Skin Appearance) Rubor -Temperature (Flavia-wound Skin No Abnormality Appearance) (Pt Warm) -Tenderness on Palpation (Flavia-wound No Skin Appearance) -Ulcer Cleansing Wound Cleanser -Foul Odor after Cleansing No -Anesthetic Used 4% Lidocaine Solution - Nurse 2 - General Ulcer CM Notes Start: 03/16/20 08:39 Freq: Status: Active Protocol: Activity Type Activity Date Activity User E-Sign Co-Sign Detail Recorded Client Recorded Date Recorded By Document 04/13/20 09:30 DL [id number] 04/13/20 09:31 DL 04/13/20 09:30 Wound Center Nurse 2 [Procedure/Treatment] -Correct Patient No -Correct Side, Site, Position No -Correct Procedure No -Procedure Performed No -Wound/Ulcer Outcome Not Healed [See Physician Procedure note for Specifics] Pain Scale: 0-10 Numeric [Pain] -Is Patient Pain Free? Yes Musculoskeletal: No Tenderness to Palpation of Joints or Extremities Neurological: Neuro grossly intact Psych/Mental Status: Normal Affect, Appropriate Debridement Note Post-Debridement Measurements/Treatment - Nurse 2 - General Ulcer CM Notes Start: 03/16/20 08:39 Freq: Status: Active Protocol: Activity Type Activity Date Activity User E-Sign Co-Sign Detail Recorded Client Recorded Date Recorded By Document 03/16/20 08:58 PL [id number] 03/16/20 08:59 PL Document 03/30/20 09:27 JF [id number] 03/30/20 09:28 JF Document 04/06/20 09:51 JF [id number] 04/06/20 09:59 JF Document 06/29/20 09:30 DL [id number] 04/13/20 09:31 DL 03/16/20 03/30/20 04/06/20 08:58 09:27 09:51 Wound Center Nurse 2 6-left medial breast/Incision -Time 08:47 -Correct Patient Yes No No -Correct Side, Site, Position Yes No No -Correct Procedure Yes No No -Procedure Performed Yes No No -Type of Procedure Debridement -Clinical Debridement Subcutaneous -Post Debridement Size (cm) - Length 0.6 -Post Debridement Size (cm) - Width 1.5 -Post Debridement Size (cm) - Depth 1.5 -Total Square Cm 0.90 -Wound/Ulcer Outcome Not Healed Not Healed Not Healed -Ulcer Cleansing Rinsed/ Irrigated with Saline -Foul Odor after Cleansing No -Bleeding Controlled with Pressure -Offloading No -Treatment Response Procedure Tolerated Well Pain Scale: 0-10 Numeric Is Patient Pain Free? Yes Yes Yes 04/13/20 09:30 Wound Center Nurse 2 6-left medial breast/Incision -Time -Correct Patient No -Correct Side, Site, Position No -Correct Procedure No -Procedure Performed No -Type of Procedure -Clinical Debridement -Post Debridement Size (cm) - Length -Post Debridement Size (cm) - Width -Post Debridement Size (cm) - Depth -Total Square Cm -Wound/Ulcer Outcome Not Healed -Ulcer Cleansing -Foul Odor after Cleansing -Bleeding Controlled with -Offloading -Treatment Response Pain Scale: 0-10 Numeric Is Patient Pain Free? Yes No debridement was completed today Assessment/Plan Assessment: 1. Nonhealing ulcer left breast at [facility], recent surgical closure 03/24/20. 2. MRSA. 3. s/p bilateral breast reduction mammaplasty. 4. Smoker. 5. Diabetes mellitus. 6. s/p revision reconstructed left breast with excisional debridement nonhealing MRSA ulcer and complex secondary wound closure and placement AmnioFill placental connective tissue powder (1000 mg). Plan: Incisions are dry and intact. No vascular compromise noted on the breast skin flaps. Nipple is viable. Remaining sutures removed from the T-zone. There is a small (<0.3 cm) area that is opened. Will place Collagen Hydrogel daily on that area only. Operative culture showed MRSA. Continue the Doxycycline. Prealbumin from 03/25/20 was 24.4. Encourage nutritional supplementation with protein to help the healing process. HgbA1c from 03/23/20 was 6.5. Massage incisions with lotion (except where placing collagen hydrogel). Renewed Diflucan (10 days) due to yeast infection from antibiotics. Followup two weeks. Encouraged the patient to stop smoking as it may have deleterious effects on wound healing. [id number]: [id number] Global Visit
== END 2020-04-14 23:59 ==
LOC: WC 09:00
PROVIDERS: Family Provider Family Medicine; PCP Family Medicine; Referring Provider Nurse Practitioner Family; Visit Provider Nurse Practitioner Family
DX: T81.31XA Disruption of external operation (surgical) wound, not elsewhere classified, initial encounter (principal); Y83.8 Other surgical procedures as the cause of abnormal reaction of the patient, or of later complication, without mention of misadventure at the time of the procedure; N62 Hypertrophy of breast; E11.9 Type 2 diabetes mellitus without complications; T81.89XA Other complications of procedures, not elsewhere classified, initial encounter; F17.200 Nicotine dependence, unspecified, uncomplicated; Z86.14 Personal history of Methicillin resistant Staphylococcus aureus infection
CPT/HCPCS: 11042; 99213; G0463

== ENCOUNTER 2020-05-11 08:30 | Outpatient (RCR) | payer MEDICARE, MEDICAID, SELFPAY ==
[2020-04-15 00:22] VITALS: BP 126/73; PULSE 100; RESP 20; TEMP 36.7; BMI 31.0
[2020-04-27 09:11] VITALS: BP 133/87; PULSE 87; RESP 20; TEMP 36.7; BMI 31.0
--- NOTE | 2020-04-27 15:32 | PN.PCM_ITS ---
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 Status: Chronic Current Visit: Yes Code(s): L98.492 - Non-pressure chronic ulcer of skin of other sites with fat layer exposed Comment: nonhealing ulcers bilateral breasts at [facility] (2) History of bilateral breast reduction surgery Status: Chronic Current Visit: Yes Code(s): Z98.890 - Other specified postprocedural states (3) MRSA (methicillin resistant Staphylococcus aureus) infection Status: Chronic Current Visit: Yes Code(s): A49.02 - Methicillin resistant Staphylococcus aureus infection, unspecified site (4) Type 2 diabetes mellitus Status: Chronic Current Visit: Yes Code(s): E11.9 - Type 2 diabetes mellitus without complications (5) Smoker Status: Chronic Current Visit: Yes Code(s): F17.200 - Nicotine dependence, unspecified, uncomplicated Type of Wound Date of Service: 04/27/20 Chief Complaint: Nonhealing ulcer left breast at [facility], recent surgical closure 03/24/20. History of Wound: Surgery 03/24/20 - Revision reconstructed left breast with excisional debridement nonhealing MRSA ulcer and complex secondary wound closure and placement AmnioFill placental connective tissue powder (1000 mg). Wound care - She is healed today. She may place dry gauze over the incision to prevent it from rubbing against her bra/clothing. Operative culture - MRSA. She was placed on Doxycycline. Prealbumin from 03/25/20 was 24.4. Encourage n utritional supplementation with protein to help the healing process. HgbA1c from 03/23/20 was 6.5. Today she denies fever. Her appetite is ok. Progress of Wound: Recent surgery 03/24/20 for surgical closure. Incisions dry and intact. - Physical Exam Vital Signs Temp Pulse Resp BP 98.1 F 87 20 H 133/87 H 04/27/20 09:11 04/27/20 09:11 04/27/20 09:11 04/27/20 09:11 General: Alert, Oriented x3, Cooperative HEENT: Atraumatic Oral: Moist Mucosa Neck: Supple Lungs: Normal air movement Cardiovascular: Regular rate Abdomen: Soft Extremities: Capillary Refill Less than 3 Seconds Skin: Incision - Left breast incision is healed. Wound Measurements and Assessment WC - Nurse 1 - General Ulcer Measurement Start: 04/27/20 08:51 Freq: Status: Active Protocol: Activity Type Activity Date Activity User E-Sign Co-Sign Detail Recorded Client Recorded Date Recorded By Document 04/27/20 09:11 DAYANNA [id number] 04/27/20 09:13 DAYANNA 04/27/20 09:11 Wound Center Nurse 1 [Ulcer Assessment] 6-left medial breast/Incision -Combined with other wound No -Current Size (cm) - Length 0.1 -Current Size (cm) - Width 0.1 -Current Size (cm) - Depth 0.1 -Total Square Cm 0.01 -Photo Taken No -Epithelialization Small 1-33% -Tunneling No -Undermining/Tunneling No -Circular Undermining No -Classification - Thickness Full Thickness without Exposed Support Structure -Exudate Amt None Present -Exudate Type Serous -Wound Margin Flat & Intact -Granulation Amt None Present (0 %) -Granulation Quality N/A -Slough/Fibrin Yes -Necrosis Amt Medium (34-66%) -Necrotic Tissue Type Adherent Slough -Structure Exposed None/Limited to Skin Breakdown -Texture (Flavia-wound Skin Appearance) Assessed, Scarring -Moisture (Flavia-wound Skin Appearance Dry/Scaly ) -Color (Flavia-wound Skin Appearance) No Abnormality, Assessed -Temperature (Flavia-wound Skin No Abnormality Appearance) (Pt Warm) -Tenderness on Palpation (Flavia-wound No Skin Appearance) -Ulcer Cleansing Rinsed/ Irrigated with Saline -Foul Odor after Cleansing No -Anesthetic Used 4% Lidocaine Solution WC - Nurse 2 - General Ulcer CM Notes Start: 04/27/20 08:51 Freq: Status: Active Protocol: Activity Type Activity Date Activity User E-Sign Co-Sign Detail Recorded Client Recorded Date Recorded By Document 04/27/20 09:18 TAYLA [id number] 04/27/20 09:19 04/27/20 09:18 Wound Center Nurse 2 [Procedure/Treatment] -Correct Patient No -Correct Side, Site, Position No -Correct Procedure No -Procedure Performed No -Post Debridement Size (cm) - Length 0 -Post Debridement Size (cm) - Width 0 -Post Debridement Size (cm) - Depth 0 -Total Square Cm 0 -Wound/Ulcer Outcome Healed- Epithelialized [See Physician Procedure note for Specifics] Pain Scale: 0-10 Numeric [Pain] -Is Patient Pain Free? Yes Musculoskeletal: No Tenderness to Palpation of Joints or Extremities Neurological: Neuro grossly intact Psych/Mental Status: Normal Affect, Appropriate Debridement Note Post-Debridement Measurements/Treatment WC - Nurse 2 - General Ulcer CM Notes Start: 04/27/20 08:51 Freq: Status: Active Protocol: Activity Type Activity Date Activity User E-Sign Co-Sign Detail Recorded Client Recorded Date Recorded By Document 04/27/20 09:18 TAYLA [id number] 04/27/20 09:19 TAYLA 04/27/20 09:18 Wound Center Nurse 2 6-left medial breast/Incision -Correct Patient No -Correct Side, Site, Position No -Correct Procedure No -Procedure Performed No -Post Debridement Size (cm) - Length 0 -Post Debridement Size (cm) - Width 0 -Post Debridement Size (cm) - Depth 0 -Total Square Cm 0 -Wound/Ulcer Outcome Healed- Epithelialized Pain Scale: 0-10 Numeric Is Patient Pain Free? Yes No debridement was completed today Assessment/Plan Active Problems History of bilateral breast reduction surgery (Chronic) MRSA (methicillin resistant Staphylococcus aureus) infection (Chronic) Chronic skin ulcer with fat layer exposed (Chronic) nonhealing ulcers bilateral breasts at [facility] Type 2 diabetes mellitus (Chronic) Smoker (Chronic) Assessment: 1. Nonhealing ulcer left breast at [facility], recent surgical closure 03/24/20. 2. MRSA. 3. s/p bilateral breast reduction mammaplasty. 4. Smoker. 5. Diabetes mellitus. 6. s/p revision reconstructed left breast with excisional debridement nonhealing MRSA ulcer and complex secondary wound closure and placement AmnioFill placental connective tissue powder (1000 mg). Plan: Incisions are dry and intact. Incision is healing well. No vascular compromise noted on the breast skin flaps. Nipple is viable. She may place dry gauze over the incision to prevent clothing from rubbing on incision. Operative culture showed MRSA. Continue the Doxycycline. Prealbumin from 03/25/20 was 24.4. Encourage nutritional supplementation with protein to help the healing process. HgbA1c from 03/23/20 was 6.5. Massage incisions with lotion (except where placing collagen hydrogel). Renewed Diflucan (10 days) due to yeast infection from antibiotics. Followup two weeks. Encouraged the patient to stop smoking as it may have deleterious effects on wound healing. [id number]: [id number] Global Visit
[2020-05-11 09:33] VITALS: BP 146/92; PULSE 120; RESP 16; TEMP 36; BMI 31.0
--- NOTE | 2020-05-11 10:20 | PN.PCM_ITS ---
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 Status: Chronic Current Visit: Yes Code(s): L98.492 - Non-pressure chronic ulcer of skin of other sites with fat layer exposed Comment: nonhealing ulcers bilateral breasts at [facility] (2) History of bilateral breast reduction surgery Status: Chronic Current Visit: Yes Code(s): Z98.890 - Other specified postprocedural states (3) MRSA (methicillin resistant Staphylococcus aureus) infection Status: Chronic Current Visit: Yes Code(s): A49.02 - Methicillin resistant Staphylococcus aureus infection, unspecified site (4) Type 2 diabetes mellitus Status: Chronic Current Visit: Yes Code(s): E11.9 - Type 2 diabetes mellitus without complications (5) Smoker Status: Chronic Current Visit: Yes Code(s): F17.200 - Nicotine dependence, unspecified, uncomplicated Type of Wound Date of Service: 05/11/20 Chief Complaint: Nonhealing ulcer left breast at [facility], recent surgical closure 03/24/20. History of Wound: Surgery 03/24/20 - Revision reconstructed left breast with excisional debridement nonhealing MRSA ulcer and complex secondary wound closure and placement AmnioFill placental connective tissue powder (1000 mg). Wound care - She remains healed today. She may place dry gauze over the incision to prevent it from rubbing against her bra/clothing. Operative culture - MRSA. She was placed on Doxycycline. Prealbumin from 03/25/20 was 24.4. Encourage nutritional supplementation with protein to help the healing process. HgbA1c from 03/23/20 was 6.5. Today she denies fever. Her appetite is ok. Progress of Wound: Recent surgery 03/24/20 for surgical closure. Incisions are healed. - Physical Exam Vital Signs Temp Pulse Resp BP 96.8 F L 120 H 16 146/92 H 05/11/20 09:33 05/11/20 09:33 05/11/20 09:33 05/11/20 09:33 General: Alert, Oriented x3, Cooperative HEENT: Atraumatic Oral: Moist Mucosa Lungs: Normal air movement Cardiovascular: Regular rate Abdomen: Soft Extremities: Capillary Refill Less than 3 Seconds Skin: Incision - Incisions are dry and intact and healed. Wound Measurements and Assessment WC - Nurse 2 - General Ulcer CM Notes Start: 04/27/20 08:51 Freq: Status: Active Protocol: Activity Type Activity Date Activity User E-Sign Co-Sign Detail Recorded Client Recorded Date Recorded By Document 05/11/20 09:54 JF [id number] 05/11/20 09:56 05/11/20 09:54 Pain Scale: 0-10 Numeric [Pain] -Is Patient Pain Free? Yes Musculoskeletal: No Tenderness to Palpation of Joints or Extremities Neurological: Cranial nerves II-XII grossly intact Psych/Mental Status: Normal Affect, Appropriate Debridement Note Post-Debridement Measurements/Treatment WC - Nurse 2 - General Ulcer CM Notes Start: 04/27/20 08:51 Freq: Status: Active Protocol: Activity Type Activity Date Activity User E-Sign Co-Sign Detail Recorded Client Recorded Date Recorded By Document 04/27/20 09:18 [id number] 04/27/20 09:19 Document 05/11/20 09:54 [id number] 05/11/20 09:56 04/27/20 05/11/20 09:18 09:54 Wound Center Nurse 2 6-left medial breast/Incision -Correct Patient No -Correct Side, Site, Position No -Correct Procedure No -Procedure Performed No -Post Debridement Size (cm) - Length 0 -Post Debridement Size (cm) - Width 0 -Post Debridement Size (cm) - Depth 0 -Total Square (cm) 0 -Wound/Ulcer Outcome Healed- Epithelialized Pain Scale: 0-10 Numeric Is Patient Pain Free? Yes Yes No debridement was completed today Assessment/Plan Active Problems History of bilateral breast reduction surgery (Chronic) MRSA (methicillin resistant Staphylococcus aureus) infection (Chronic) Chronic skin ulcer with fat layer exposed (Chronic) nonhealing ulcers bilateral breasts at [facility] Type 2 diabetes mellitus (Chronic) Smoker (Chronic) Assessment: 1. Nonhealing ulcer left breast at [facility], recent surgical closure 03/24/20. 2. MRSA. 3. s/p bilateral breast reduction mammaplasty. 4. Smoker. 5. Diabetes mellitus. 6. s/p revision reconstructed left breast with excisional debridement nonhealing MRSA ulcer and complex secondary wound closure and placement AmnioFill placental connective tissue powder (1000 mg). Plan: Incisions are dry and intact. Incision is healed. No vascular compromise noted on the breast skin flaps. Nipple is viable. She may place dry gauze over the incision to prevent clothing from rubbing on incision. Operative culture showed MRSA. Completed Doxycycline. Prealbumin from 6/10/20 was 24.4. Encourage nutritional supplementation with protein to help the healing process. HgbA1c from 03/23/20 was 6.5. Massage incisions with lotion to help soften scarring. Discharge from the wound center today. Follow up as needed. Encouraged the patient to stop smoking as it may have deleterious effects on wound healing. [id number]: [id number] Global Visit
== END 2020-05-15 23:59 ==
LOC: WC 08:30
PROVIDERS: Family Provider Family Medicine; PCP Family Medicine; Referring Provider Nurse Practitioner Family; Visit Provider Nurse Practitioner Family
DX: E11.622 Type 2 diabetes mellitus with other skin ulcer (principal); F17.200 Nicotine dependence, unspecified, uncomplicated; L98.492 Non-pressure chronic ulcer of skin of other sites with fat layer exposed; Z86.14 Personal history of Methicillin resistant Staphylococcus aureus infection
CPT/HCPCS: 99212; G0463

== ENCOUNTER → 2020-09-17 10:42 | Outpatient (CLI) | payer MEDICARE, MEDICAID, SELFPAY ==
--- NOTE | 2020-09-17 10:44 | ART_ITS ---
Reason For Study: atherosclerosis Procedure A bilateral lower extremity continuous wave Doppler with analog waveform analysis and ankle brachial indexes. Left Segmental Pressures Left brachial= 135mmHg. Left posterior tibial artery = 164mmHg. Left dorsalis pedis artery = 144mmHg. The left dorsalis pedis waveforms are triphasic. The left posterior tibial artery waveforms are triphasic. Right Segmental Pressures Right brachial= 138mmHg. Right posterior tibial artery = 158mmHg. Right dorsalis pedis artery = 150mmHg. The right dorsalis pedis waveforms are triphasic. The right posterior tibial artery waveforms are triphasic. Indices The right ankle brachial index by the dorsalis pedis is 1.09. The right ankle brachial index by the posterior tibial artery is 1.14. The right post exercise ankle brachial index is 1.06. The left ankle brachial index by the dorsalis pedis is 1.19. The left post exercise ankle brachial index is 1.07. Interpretation Summary Triphasic Doppler waveforms are noted at ankle level bilaterally. Pulse-volume recordings appear satisfactory at ankle level bilaterally. Resting ankle-brachial indices are normal bilaterally. The patient ambulated on a treadmill at 1.3 MPH and a 5% incline. Ankle pressures augmented bilaterally following cessation of exercise, a normal physiological response. There is no evidence of significant arterial occlusive disease in the lower extremities bilaterally. Ordering Physician: Aron Palumbo Performed By: Michael Merchant RVT and Student
== END ==
PROVIDERS: PCP Family Medicine; Referring Provider Family Medicine; Visit Provider Family Medicine
DX: R09.89 Other specified symptoms and signs involving the circulatory and respiratory systems (principal)
CPT/HCPCS: 93922

== ENCOUNTER → 2020-09-30 15:37 | Outpatient (CLI) | payer MEDICARE, MEDICAID, SELFPAY ==
[2020-09-30 17:49] LABS: Absolute Lymphocyte Count 5.75 X10^3/uL (0.83-4.51); Absolute Neutrophil Count 11.3 X10^3/uL (2.0-7.7); Basophil# 0.05 X10^3/uL; Basophil% 0.3 % (0-1); Eosinophil# 0.19 X10^3/uL; Hemoglobin 15.5 g/dL (12.0-15.0); Lymphocyte # 5.75 X10^3/ul (4.0); Lymphocyte % 31.4 % (19-41); Mean Corpuscular Hgb 30.7 pg (27.0-32.0); Mean Corpuscular Volume 93.1 fL (81-99); Mean Platelet Vol. 9.6 fl (6.2-12.0); Monocyte# 0.92 X10^3/uL; NRBC Flagged by Analyzer 0 % (0-5); Neutrophil # 11.32 X10^3/uL (2.7-7.7); Neutrophil % 61.8 % (47-70); POSITIVE DIFFERENTIAL YES; POSITIVE MORPHOLOGY YES; Platelet Count 501 K/mm3 (150-450); RBC Distribution Width CV 13.6 % (11.6-14.6); RBC Distribution Width SD 46.5 fl (35.1-43.9); Red Blood Count 5.05 M/mm3 (4.2-5.4); White Blood Count 18.3 K/mm3 (4.4-11.0)
[2020-09-30 18:16] LABS: Differential Indicated SCAN CRITERIA MET
[2020-09-30 18:35] LABS: ALB/GLOB Ratio 0.9 RATIO (0.9-2.4); AST(SGOT) 24 U/L (15-37); Alanine Aminotransfer ALT/SGPT 26 U/L (13-56); Alkaline Phosphatase 83 U/L (45-117); Anion Gap 9 (5-15); BUN 17 mg/dL (7-18); Chloride 106 mmol/L (98-107); Creatinine, Serum 1.13 mg/dL (0.55-1.02); EST Glomerular Filtration Rate 54 mL/min (>60); Est Glom Filt Rate - Afr Amer 65 mL/min (>60); Globulin 4.3 g/dL (2.2-4.2); Glucose 88 mg/dL (74-106); Potassium 4.2 mmol/L (3.5-5.1); Protein, Total 8.3 g/dL (6.4-8.2); Sodium Level 137 mmol/L (136-145)
[2020-09-30 18:46] LABS: Reactive Lymphocyte 1+
[2020-09-30 19:26] LABS: Microalbumin:Creatinine Ratio 249.5 mg/g CRE (<30 mg/g CRE)
== END ==
PROVIDERS: PCP Family Medicine; Referring Provider Family Medicine; Visit Provider Family Medicine
DX: E11.40 Type 2 diabetes mellitus with diabetic neuropathy, unspecified (principal)
CPT/HCPCS: 36415; 80053; 82043; 82570; 85025

== ENCOUNTER → 2021-03-04 08:35 | Outpatient (CLI) | payer MEDICARE, MEDICAID, SELFPAY ==
--- NOTE | 2021-03-04 08:39 | CT_ITS ---
STUDY: CT BRAIN WITHOUT CONTRAST REASON FOR EXAM: Female, 50 years old. Severe migraine headache RADIATION DOSAGE (If Supplied By Facility): CTDIvol = ( 44.99 ) mGy, DLP = ( 745.49 ) mGycm TECHNIQUE: Transaxial CT imaging of the brain was performed without administration of intravenous contrast material. Individualized dose optimization techniques were used for this CT. COMPARISON: 03/06/2018 FINDINGS: Normal soft tissue structures. Normal calvarium. Normal size ventricles and extra-axial spaces for the patient''s age. Normal white matter tracts of the cerebral hemispheres. Normal basal ganglia and thalami. Normal brainstem. Normal cerebellum. There is no intracranial hemorrhage. There are no findings of an acute ischemic infarction. Normal visualized paranasal sinuses. CT/Brain/Head without Contrast IMPRESSION: Normal unenhanced CT scan of the brain. Electronically Signed: Keenan Esteban MD at 9:11 EDT , Service support ,
== END ==
PROVIDERS: PCP Family Medicine; Referring Provider Family Medicine; Visit Provider Family Medicine
DX: G43.909 Migraine, unspecified, not intractable, without status migrainosus (principal)
CPT/HCPCS: 70450

== ENCOUNTER → 2021-04-15 13:44 | Outpatient (CLI) | payer MEDICARE, MEDICAID, SELFPAY ==
[2021-04-15 18:04] LABS: Absolute Neutrophil Count 12.3 X10^3/uL (2.0-7.7); Basophil# 0.09 X10^3/uL; Basophil% 0.5 % (0-1); Eosinophil# 0.16 X10^3/uL; Eosinophils% 0.9 % (0-5); Hematocrit 47.9 % (37-47); Lymphocyte % 20.7 % (19-41); Mean Corp Hgb Conc 33.4 g/dL (32-36); Mean Corpuscular Hgb 31.2 pg (27.0-32.0); Mean Corpuscular Volume 93.4 fL (81-99); Mean Platelet Vol. 10.3 fl (6.2-12.0); Monocyte# 0.74 X10^3/uL; Monocyte% 4.4 % (0-10); NRBC Flagged by Analyzer 0 % (0-5); Platelet Count 441 K/mm3 (150-450); RBC Distribution Width SD 44.9 fl (35.1-43.9); Red Blood Count 5.13 M/mm3 (4.2-5.4); White Blood Count 16.9 K/mm3 (4.4-11.0)
[2021-04-15 18:53] LABS: Hemoglobin A1c 7.3 % (3.8-5.6)
[2021-04-15 18:59] LABS: AST(SGOT) 44 U/L (15-37); Alanine Aminotransfer ALT/SGPT 45 U/L (13-56); Albumin, Serum 4.3 g/dL (3.2-5.0); Alkaline Phosphatase 95 U/L (45-117); Anion Gap 11 (5-15); BUN 19 mg/dL (7-18); BUN/Creat Ratio 12.3 RATIO (10-20); Calcium,Total 9.3 mg/dL (8.5-10.1); Chloride 99 mmol/L (98-107); Creatinine, Serum 1.54 mg/dL (0.55-1.02); EST Glomerular Filtration Rate 38 mL/min (>60); Est Glom Filt Rate - Afr Amer 46 mL/min (>60); Globulin 4.3 g/dL (2.2-4.2); Glucose 180 mg/dL (74-106); Lipase 228 U/L (73-393); Potassium 4.2 mmol/L (3.5-5.1); Protein, Total 8.6 g/dL (6.4-8.2); Sodium Level 135 mmol/L (136-145); Thyroid Stim Hormone (TSH) 2.92 uIU/mL (0.358-3.74)
[2021-04-15 19:25] LABS: Microalbumin:Creatinine Ratio 120.9 mg/g CRE (<30 mg/g CRE)
== END ==
PROVIDERS: PCP Family Medicine; Visit Provider Family Medicine
DX: E11.43 Type 2 diabetes mellitus with diabetic autonomic (poly)neuropathy (principal); I50.30 Unspecified diastolic (congestive) heart failure; E11.40 Type 2 diabetes mellitus with diabetic neuropathy, unspecified
CPT/HCPCS: 36415; 80053; 82043; 82570; 83036; 83690; 84443; 85025

== ENCOUNTER → 2021-05-26 | Outpatient (CLI) | payer MEDICARE, MEDICAID, SELFPAY | END | disposition home or self-care (01) | LOC: LABSPEC 14:17 | PROVIDERS: PCP Family Medicine; Referring Provider Family Medicine; Visit Provider Family Medicine | DX: B37.3 Candidiasis of vulva and vagina (principal) | CPT/HCPCS: 87070; 87077; 87101; 87106; 87205 ==

== ENCOUNTER → 2021-07-15 11:14 | Outpatient (CLI) | payer MEDICARE, MEDICAID, SELFPAY ==
[2021-07-15 12:56] LABS: Anion Gap 9 (5-15); BUN 10 mg/dL (7-18); Calcium,Total 9.1 mg/dL (8.5-10.1); Chloride 103 mmol/L (98-107); Creatinine, Serum 1.11 mg/dL (0.55-1.02); EST Glomerular Filtration Rate 55 mL/min (>60); Est Glom Filt Rate - Afr Amer 66 mL/min (>60); Glucose 218 mg/dL (74-106); Potassium 4.8 mmol/L (3.5-5.1); Sodium Level 137 mmol/L (136-145)
[2021-07-15 13:02] LABS: Hemoglobin A1c 8.1 % (3.8-5.6)
[2021-07-15 13:21] LABS: Microalbumin,Random Urine 79.1 mg/L (NO RANGE EST.); Microalbumin:Creatinine Ratio 31.8 mg/g CRE (<30 mg/g CRE)
== END ==
PROVIDERS: PCP Family Medicine; Referring Provider Family Medicine; Visit Provider Family Medicine
DX: E11.40 Type 2 diabetes mellitus with diabetic neuropathy, unspecified (principal)
CPT/HCPCS: 36415; 80048; 82043; 82570; 83036

== ENCOUNTER → 2021-08-16 16:03 | Outpatient (CLI) | payer MEDICARE, MEDICAID, SELFPAY ==
--- NOTE | 2021-08-16 16:13 | MRI_ITS ---
STUDY: MRI RIGHT ANKLE WITH AND WITHOUT CONTRAST REASON FOR EXAM: Female, 51 years old. GANGLION CYST, MIDFOOT ARTHRITIS, STRESS FRACTURE AND FOOT PAIN TECHNIQUE: Standarized fat and water weighted pulse sequences were obtained in all 3 orthogonal plane pre and post intravenous administration of IV 16ML DOTAREM. COMPARISON: X-ray dated 11/21/2014. FINDINGS: No acute fracture, dislocation or bone destruction. Mild subcutaneous enhancement at the skin overlying the navicular cuneiform joint. No subcutaneous lesion identified. Mild tibiotalar joint arthrosis. Mild subtalar degenerative arthrosis. Mild talonavicular joint arthrosis. Advanced navicular cuneiform joint arthrosis with prominent dorsal spurring (sagittal images 10 through 14 series 7) and cyst/erosion. Normal calcaneocuboid cartilage. Minimal tarsal metatarsal joint arthrosis. Normal extensor tendons. Normal peroneus longus and brevis tendons. Mild posterior tibialis tenosynovitis. Remainder of the flexor tendons unremarkable. Normal Lisfranc ligament. Normal syndesmotic ligaments. Normal anterior and posterior talofibular ligaments. Normal deltoid ligament. Normal spring ligament. Mild sinus Tarsi/subtalar ligamentous edema. Tiny Achilles enthesophyte. Plantar spur. Mild plantar fascial thickening with minimal adjacent edema (sagittal image 12 series 8). Normal muscles of the midfoot/hindfoot. Small volume tibiotalar/subtalar joint effusion. Small volume navicular cuneiform joint effusion with serpiginous small ganglion cyst emanating from the joint space. Cyst measures approximately 6 mm x 6 mm. MRI/Lower Ext Joint Only W/WO Cont IMPRESSION: Advanced navicular cuneiform joint arthrosis with dorsal spurring, tiny ganglion cyst and overlying subcutaneous enhancement (statistically related to chronic arthritis; exclude inflammatory/neuropathic etiologies) Small volume joint effusions with mild soft tissue swelling and mild sinus Tarsi syndrome Mild PTT tenosynovitis without tear Achilles enthesophyte, plantar spur and mild acute on chronic plantar fascial thickening Mild additional osteoarthritic features, as above Electronically Signed: Aron Adorno DO at 8:43 EDT Tel , Service support ,
== END ==
PROVIDERS: PCP Family Medicine; Referring Provider Podiatrist; Visit Provider Podiatrist
DX: M67.471 Ganglion, right ankle and foot (principal); M19.071 Primary osteoarthritis, right ankle and foot; M84.374A Stress fracture, right foot, initial encounter for fracture
CPT/HCPCS: 73723; A9585

== ENCOUNTER 2021-11-08 11:07 | Outpatient (CLI) | payer MEDICARE, MEDICAID, SELFPAY ==
[2021-11-08 12:50] LABS: Hematocrit 47.4 % (37-47); Mean Corp Hgb Conc 33.8 g/dL (32-36); Mean Corpuscular Hgb 31.5 pg (27.0-32.0); Mean Corpuscular Volume 93.3 fL (81-99); Mean Platelet Vol. 9.5 fl (6.2-12.0); Platelet Count 465 K/mm3 (150-450); RBC Distribution Width CV 13.5 % (11.6-14.6); RBC Distribution Width SD 46.3 fl (35.1-43.9); Red Blood Count 5.08 M/mm3 (4.2-5.4); White Blood Count 16.3 K/mm3 (4.4-11.0)
[2021-11-08 13:37] LABS: ALB/GLOB Ratio 0.9 RATIO (0.9-2.4); AST(SGOT) 23 U/L (15-37); Alanine Aminotransfer ALT/SGPT 22 U/L (13-56); Albumin, Serum 3.7 g/dL (3.2-5.0); Alkaline Phosphatase 78 U/L (45-117); Anion Gap 9 (5-15); BUN 15 mg/dL (7-18); BUN/Creat Ratio 12.8 RATIO (10-20); Calcium,Total 9.3 mg/dL (8.5-10.1); Chloride 103 mmol/L (98-107); Cholesterol 206 mg/dL (200); Creatinine, Serum 1.17 mg/dL (0.55-1.02); EST Glomerular Filtration Rate 52 mL/min (>60); Est Glom Filt Rate - Afr Amer 62 mL/min (>60); Glucose 106 mg/dL (74-106); High Density Lipoprotein 31 mg/dL; Potassium 4.8 mmol/L (3.5-5.1); Protein, Total 7.7 g/dL (6.4-8.2); Sodium Level 137 mmol/L (136-145); Thyroid Stim Hormone (TSH) 2.74 uIU/mL (0.358-3.74); Triglycerides 269 mg/dL; Very Low Density Lipoprotein 54 mg/dL (5-40)
== END 2021-11-08 23:59 | disposition short-term general hospital (02) ==
LOC: MFPLAB 11:11
PROVIDERS: PCP Family Medicine; Visit Provider Family Medicine
DX: J44.9 Chronic obstructive pulmonary disease, unspecified (principal); I50.30 Unspecified diastolic (congestive) heart failure; I27.20 Pulmonary hypertension, unspecified; E11.43 Type 2 diabetes mellitus with diabetic autonomic (poly)neuropathy; K31.84 Gastroparesis; E66.9 Obesity, unspecified; Z68.34 Body mass index [BMI] 34.0-34.9, adult
CPT/HCPCS: 36415; 80053; 80061; 84443; 85027

== ENCOUNTER → 2022-02-25 | Outpatient (CLI) | payer MEDICARE, MEDICAID, SELFPAY ==
[2022-02-25 12:35] LABS: Absolute Lymphocyte Count 4.07 X10^3/uL (0.83-4.51); Absolute Neutrophil Count 10.5 X10^3/uL (2.0-7.7); Basophil# 0.05 X10^3/uL; Basophil% 0.3 % (0-1); Eosinophil# 0.12 X10^3/uL; Eosinophils% 0.8 % (0-5); Hematocrit 45.2 % (37-47); Hemoglobin 15.2 g/dL (12.0-15.0); Lymphocyte # 4.07 X10^3/ul (0.83-4.51); Mean Corp Hgb Conc 33.6 g/dL (32-36); Mean Corpuscular Hgb 31.7 pg (27.0-32.0); Mean Corpuscular Volume 94.4 fL (81-99); Mean Platelet Vol. 9.6 fl (6.2-12.0); Monocyte# 0.74 X10^3/uL; Monocyte% 4.7 % (0-10); NRBC Flagged by Analyzer 0 % (0-5); Neutrophil # 10.54 X10^3/uL (2.7-7.7); Neutrophil % 67.4 % (47-70); Platelet Count 409 K/mm3 (150-450); RBC Distribution Width CV 13.4 % (11.6-14.6); RBC Distribution Width SD 46.8 fl (35.1-43.9); Red Blood Count 4.79 M/mm3 (4.2-5.4); White Blood Count 15.7 K/mm3 (4.4-11.0)
[2022-02-25 12:39] LABS: Microalbumin,Random Urine 23.7 mg/L (NO RANGE EST.); Microalbumin:Creatinine Ratio 11.2 mg/g CRE (<30 mg/g CRE)
[2022-02-25 12:47] LABS: Vitamin D,25 Hydroxy 63.9 ng/mL
[2022-02-25 13:03] LABS: BUN 22 mg/dL (7-18); Creatinine, Serum 1.13 mg/dL (0.55-1.02); EST Glomerular Filtration Rate 54 mL/min (>60); Glucose 142 mg/dL (74-106)
[2022-02-25 13:04] LABS: ALB/GLOB Ratio 0.9 RATIO (0.9-2.4); AST(SGOT) 27 U/L (15-37); Alanine Aminotransfer ALT/SGPT 37 U/L (13-56); Albumin, Serum 3.7 g/dL (3.2-5.0); Alkaline Phosphatase 67 U/L (45-117); Anion Gap 9 (5-15); BUN/Creat Ratio 19.5 RATIO (10-20); Calcium,Total 9.7 mg/dL (8.5-10.1); Chloride 100 mmol/L (98-107); Est Glom Filt Rate - Afr Amer 65 mL/min (>60); Globulin 4.3 g/dL (2.2-4.2); Potassium 4.6 mmol/L (3.5-5.1); Sodium Level 134 mmol/L (136-145); Thyroid Stim Hormone (TSH) 2.82 uIU/mL (0.358-3.74)
[2022-02-27 15:07] LABS: PROEL- Albumin 3.7 g/dL (2.9-4.4); PROEL- Alpha-1 Globulin 0.3 g/dL (0.0-0.4); PROEL- Alpha-2 Globulin 1.1 g/dL (0.4-1.0); PROEL- Beta Globulin 1.3 g/dL (0.7-1.3); PROEL- Globulin, Total 3.7 g/dL (2.2-3.9); PROEL- TOTAL PROTEIN 7.4 g/dL (6.0-8.5)
== END | disposition home or self-care (01) ==
PROVIDERS: PCP Family Medicine; Visit Provider Family Medicine
DX: E11.40 Type 2 diabetes mellitus with diabetic neuropathy, unspecified (principal); R19.7 Diarrhea, unspecified; R23.2 Flushing; L65.9 Nonscarring hair loss, unspecified
CPT/HCPCS: 36415; 80053; 82043; 82306; 82570; 84165; 84403; 84443; 85025

== ENCOUNTER → 2022-03-01 | Outpatient (CLI) | payer MEDICARE, MEDICAID, SELFPAY ==
[2022-03-01 12:19] LABS: Absolute Lymphocyte Count 4.74 X10^3/uL (0.83-4.51); Absolute Neutrophil Count 11.4 X10^3/uL (2.0-7.7); Basophil# 0.06 X10^3/uL; Basophil% 0.3 % (0-1); Eosinophil# 0.17 X10^3/uL; Hematocrit 45.1 % (37-47); Hemoglobin 15.5 g/dL (12.0-15.0); Lymphocyte # 4.74 X10^3/ul (0.83-4.51); Lymphocyte % 27.4 % (19-41); Mean Corp Hgb Conc 34.4 g/dL (32-36); Mean Corpuscular Volume 93.2 fL (81-99); Mean Platelet Vol. 9.2 fl (6.2-12.0); Monocyte# 0.76 X10^3/uL; Monocyte% 4.4 % (0-10); NRBC Flagged by Analyzer 0 % (0-5); Neutrophil # 11.43 X10^3/uL (2.7-7.7); Neutrophil % 66.1 % (47-70); Platelet Count 427 K/mm3 (150-450); RBC Distribution Width CV 13.4 % (11.6-14.6); RBC Distribution Width SD 46.1 fl (35.1-43.9); Red Blood Count 4.84 M/mm3 (4.2-5.4); White Blood Count 17.3 K/mm3 (4.4-11.0)
[2022-03-01 12:46] LABS: Vitamin D,25 Hydroxy 55.3 ng/mL
[2022-03-01 12:48] LABS: Microalbumin,Random Urine 34.4 mg/L (NO RANGE EST.); Microalbumin:Creatinine Ratio 13.3 mg/g CRE (<30 mg/g CRE)
[2022-03-01 12:54] LABS: ALB/GLOB Ratio 0.8 RATIO (0.9-2.4); AST(SGOT) 29 U/L (15-37); Alanine Aminotransfer ALT/SGPT 33 U/L (13-56); Albumin, Serum 3.7 g/dL (3.2-5.0); Alkaline Phosphatase 67 U/L (45-117); Anion Gap 7 (5-15); BUN 20 mg/dL (7-18); BUN/Creat Ratio 16.3 RATIO (10-20); Calcium,Total 9.4 mg/dL (8.5-10.1); Chloride 103 mmol/L (98-107); Creatinine, Serum 1.23 mg/dL (0.55-1.02); EST Glomerular Filtration Rate 49 mL/min (>60); Est Glom Filt Rate - Afr Amer 59 mL/min (>60); Globulin 4.5 g/dL (2.2-4.2); Glucose 154 mg/dL (74-106); Potassium 4.3 mmol/L (3.5-5.1); Protein, Total 8.2 g/dL (6.4-8.2); Sodium Level 136 mmol/L (136-145); Thyroid Stim Hormone (TSH) 2.49 uIU/mL (0.358-3.74)
[2022-03-01 13:13] LABS: Creat.Clear Total Volume 2175 mL; Creatinine Clearance 108 ml/min (100-200); Creatinine Serum Creat 1.2 mg/dL (0.6-1.0); Creatinine Urine 87.7 mg/dL (NO RANGE EST.); EST Glomerular Filtration Rate 49 mL/min (>60); Est Glom Filt Rate - Afr Amer 59 mL/min (>60)
[2022-03-02 18:47] LABS: ANTINUCLEAR ANTIBODIES DIRECT Negative (Negative)
[2022-03-04 11:23] LABS: pH, Stool 6.5 (7.0-7.5)
[2022-03-08 09:31] LABS: Pancreatic Elastase, Fecal 458 (>200)
[2022-03-13 20:07] LABS: 5-HIAA, 24UR 7.4 mg/24 hr (0.0-14.9); Cortisol, Urinary Free 10 ug/L (Undefined); PROEL- Albumin 3.6 g/dL (2.9-4.4); PROEL- Alpha-1 Globulin 0.3 g/dL (0.0-0.4); PROEL- Alpha-2 Globulin 1.1 g/dL (0.4-1.0); PROEL- Beta Globulin 1.3 g/dL (0.7-1.3); PROEL- Globulin, Total 3.7 g/dL (2.2-3.9); PROEL- TOTAL PROTEIN 7.3 g/dL (6.0-8.5)
[2022-03-14 16:47] LABS: 5-HIAA, UR 3.4 mg/L (Undefined); Cortisol, Free 24Ur 22 ug/24 hr (6-42)
== END | disposition home or self-care (01) ==
LOC: MFPLAB 11:01
PROVIDERS: PCP Family Medicine; Visit Provider Family Medicine
DX: R19.7 Diarrhea, unspecified (principal); E11.40 Type 2 diabetes mellitus with diabetic neuropathy, unspecified; R23.2 Flushing; L65.9 Nonscarring hair loss, unspecified
CPT/HCPCS: 36415; 80053; 81050; 82043; 82306; 82530; 82570; 82575; 82653; 83497; 83986; 84165; 84403; 84443; 85025; 86038

== ENCOUNTER → 2022-06-14 | Outpatient (CLI) | payer MEDICARE, MEDICAID, SELFPAY ==
[2022-06-22 16:39] LABS: HPV APTIMA, High Risk Negative (Negative); HPV Reflexed? YES, CHARGE PATIENT
== END | disposition home or self-care (01) ==
LOC: LABSPEC 16:46
PROVIDERS: PCP Family Medicine; Visit Provider Family Medicine
DX: Z12.4 Encounter for screening for malignant neoplasm of cervix (principal)
CPT/HCPCS: 87624; 88175; G0145

== ENCOUNTER → 2022-06-16 | Outpatient (CLI) | payer MEDICARE, MEDICAID, SELFPAY ==
--- NOTE | 2022-06-16 13:32 | BI_ITS ---
MAMMOGRAPHY - BILATERAL SCREENING REASON FOR EXAM: Female, 52 years old. Routine annual screening examination. PERTINENT HISTORY: History of prior bilateral breast reduction surgery. History of MRSA of the right breast. Prior surgical skin graft of the right breast. TECHNIQUE: Digital bilateral breast zelalem (3D mammographic acquisition) in the CC and MLO projections. 2-D mediolateral oblique (MLO) and craniocaudad (CC) views of both breasts were obtained. CAD: Full Field Digital Mammography with Computer Added Detection was performed. COMPARISON: Comparison is made with prior study dated 03/02/2019 and 12/26/2016. FINDINGS: Breast Composition: The breasts are almost entirely fatty. There now is evidence of a new 2 cm x 1.3 cm partially calcified nodular density along the mid medial posterior aspect of the right breast. This most likely dense postoperative calcification. Correlation with ultrasound is recommended. Stable postoperative changes seen along the inferior medial aspect. No other significant abnormalities are identified. BI/SCRN MAMM (CAD)W/ZELALEM BILAT IMPRESSION: New 2 cm x 1.3 cm impression calcified nodular density along the mid medial posterior aspect of the right breast. This most likely represents postoperative changes although correlation with ultrasound is recommended. ASSESSMENT CATEGORY: BIRADS Category 0: Incomplete. Need additional imaging evaluation. A letter regarding these results will be sent to the patient by the facility within 30 days. Approximately 10% of breast cancers are not detected by mammography. A normal mammogram should not delay biopsy of a clinically suspicious abnormality. [id number] Electronically Signed: Rufus Pike MD at 14:27 EDT ,
== END | disposition home or self-care (01) ==
LOC: OPBI 13:30
PROVIDERS: PCP Family Medicine; Visit Provider Family Medicine
DX: Z12.31 Encounter for screening mammogram for malignant neoplasm of breast (principal)
CPT/HCPCS: 77063; 77067

== ENCOUNTER → 2022-06-22 | Outpatient (CLI) | payer MEDICARE, MEDICAID, SELFPAY ==
--- NOTE | 2022-06-22 13:14 | US_ITS ---
STUDY: ULTRASOUND BREAST - RIGHT REASON FOR EXAM: Female, 52 years old. Abnormal screening mammogram. TECHNIQUE: Axial and longitudinal images of the RIGHT breast were performed with a high resolution ultrasound transducer. # OF IMAGES: 29 COMPARISON: Comparison is made with prior mammogram dated 06/16/2022. FINDINGS: RIGHT Breast: There is a 1.8 cm x 1.4 cm x 1.2 cm soft tissue density with patchy calcification at the 2 o''clock position of the breast at 2 cm from the nipple. Biopsy is recommended. US/Breast Limited Unilateral IMPRESSION: 1.8 cm x 1.4 cm x 1.2 cm soft tissue density calcification at the 2 o''clock position of the breast at 2 cm from nipple. Biopsy recommended. ASSESSMENT CATEGORY: BIRADS Category 4: Suspicious - Biopsy Should Be Considered. A letter regarding these results will be sent to the patient by the facility within 30 days. Electronically Signed: Rufus Pike MD at 15:34 EDT ,
== END | disposition home or self-care (01) ==
LOC: OPUS 13:12
PROVIDERS: PCP Family Medicine; Visit Provider Family Medicine
DX: R92.1 Mammographic calcification found on diagnostic imaging of breast (principal)
CPT/HCPCS: 76642

== ENCOUNTER → 2022-07-12 | Outpatient (CLI) | payer MEDICARE, MEDICAID, SELFPAY ==
[2022-07-12 15:19] LABS: Hematocrit 44.5 % (37-47); Hemoglobin 14.8 g/dL (12.0-15.0); Mean Corp Hgb Conc 33.3 g/dL (32-36); Mean Corpuscular Hgb 31.8 pg (27.0-32.0); Mean Corpuscular Volume 95.5 fL (81-99); Mean Platelet Vol. 9.6 fl (6.2-12.0); Platelet Count 412 K/mm3 (150-450); RBC Distribution Width CV 13.8 % (11.6-14.6); RBC Distribution Width SD 48.9 fl (35.1-43.9); Red Blood Count 4.66 M/mm3 (4.2-5.4); White Blood Count 14.2 K/mm3 (4.4-11.0)
[2022-07-12 15:46] LABS: ALB/GLOB Ratio 0.8 RATIO (0.9-2.4); AST(SGOT) 32 U/L (15-37); Alanine Aminotransfer ALT/SGPT 40 U/L (13-56); Albumin, Serum 3.5 g/dL (3.2-5.0); Alkaline Phosphatase 77 U/L (45-117); Anion Gap 8 (5-15); BUN 17 mg/dL (7-18); BUN/Creat Ratio 14.7 RATIO (10-20); Calcium,Total 9.9 mg/dL (8.5-10.1); Chloride 101 mmol/L (98-107); Creatinine, Serum 1.16 mg/dL (0.55-1.02); EST Glomerular Filtration Rate 52 mL/min (>60); Est Glom Filt Rate - Afr Amer 63 mL/min (>60); Globulin 4.6 g/dL (2.2-4.2); Glucose 120 mg/dL (74-106); Potassium 4.8 mmol/L (3.5-5.1); Protein, Total 8.1 g/dL (6.4-8.2); Sodium Level 136 mmol/L (136-145)
[2022-07-12 15:55] LABS: Hemoglobin A1c 6.7 % (3.8-5.6)
== END | disposition home or self-care (01) ==
LOC: MFPLAB 12:14
PROVIDERS: PCP Family Medicine; Referring Provider Family Medicine; Visit Provider Family Medicine
DX: E11.40 Type 2 diabetes mellitus with diabetic neuropathy, unspecified (principal)
CPT/HCPCS: 36415; 80053; 83036; 85027

== ENCOUNTER → 2022-08-23 | Outpatient (CLI) | payer MEDICARE, MEDICAID, SELFPAY ==
--- NOTE | 2022-08-23 11:45 | BRBX_PTH ---
PATIENT: GELY LACKEY LOC: [facility] U#:[id number] AGE/SX: 52/F ROOM: RE08/23/[address]: Dr. Deedee Bach MD : 1970 BED: DIS: 08/23/2022 SPEC #: [id number] RECD: 08/23/22 13:07 STATUS: DANA REQ #: [id number] ALFREDO: 08/23/22 11:[address]: Deedee Bach DEPT: SURGICAL PATHOLOGY RECD BY: Josep Kan ENTERED: 08/23/22 13:58 SP TYPE: BREAST BX OTHR DR: Dr. Aron Palumbo MD Tissues: Right breast, NOS Procedures: Surgery Specimen Level IV HEADER OPERATION: Right breast stereotactic biopsy PRE-OP DIAGNOSIS: 2 x 1.3 cm partially calcified nodular density along mid medial posterior aspect of right breast TISSUE SUBMITTED: Right breast core tissue ISCHEMIC TIME: 1 minute FIXATION TIME: 7.5 hours MICROSCOPIC DIAGNOSIS Right breast, stereotactic core biopsy: Fibrosis, fat necrosis and benign histiocytic proliferation. Focal acute inflammation. Banal microcalcifications. No evidence of malignancy. See comment. AM:delaney 08/24/2022 COMMENT The specimen may represent cyst rupture and associated reactive and reparative change. Clinical correlation is suggested. MICROSCOPIC DESCRIPTION Slides are reviewed. GROSS DESCRIPTION Received in fixative is one container labeled with the patient's name and designated right breast. The specimen consists of multiple elongated fragments of gomez-yellow fibroadipose tissue that in aggregate measure 5 x 3 x 0.3 cm. The entire specimen is submitted in two cassettes. / SJ:delaney 08/23/2022 TC:5 [facility]: [id number]
--- NOTE | 2022-08-23 13:12 | PCM.OPRPT ---
Report of Operation Date of Procedure: 08/23/22 Pre-Operative Diagnosis: abnormal right breast calcifications on mammograms Post-Operative Diagnosis: same Surgery/Procedure Performed:: right stereotactic breast biopsy Description of Surgical Findings:: probable scar tissue Surgeon: Deedee aBch Type of Anesthesia: Local Specimen's removed: right breast tissue Estimated Blood Loss (mL): minimal Description of Procedure: After informed consent was given, the patient was brought into the Breast Biopsy suite. Appropriate time out protocol was followed. The patient was placed in the prone position on the stereotactic biopsy table. The patient?s right breast was then placed in the opening at the head of the biopsy table. A parts casting machine operator compression mammogram was then obtained in the lateral view. The suspicious radiological lesion was thus identified. Stereo pictures of the lesion were then taken for XYZ coordinates. The Mammotome biopsy stylus was then positioned where it would be entering into the patient?s breast. The skin at this site was then cleansed with a surgical skin preparation. The skin and subcutaneous tissues at this site were then infiltrated with 1% xylocaine. A small skin incision was made with an 11 blade scalpel. The biopsy stylus was then positioned into the patient?s breast at the proper coordinates of depth. Using the Mammotome vacuum-assist device, several core samples of breast tissue were obtained. A specimen mammogram was the obtained. It revealed that the abnormal calcifications were within the specimen. I reviewed this personally and concluded that the tissue sampling was adequate. A hemostatic marker clip was then placed into the biopsy cavity and a parts casting machine operator film revealed that it was properly deployed. The patient was then placed in the supine position and pressure was applied to the breast until no active bleeding was noted. Steristrips were applied to reapproximate the skin. A unilateral mammogram in the CC and MLO view were then taken which revealed that the marker clip was in the same area as the previous suspicious lesion. The patient tolerated the procedure well and was discharged from the Breast Biopsy suite in good condition. Complications none noted
== END | disposition home or self-care (01) ==
LOC: BIRAD 11:01
PROVIDERS: PCP Family Medicine; Visit Provider Surgery
DX: N60.31 Fibrosclerosis of right breast (principal); R92.0 Mammographic microcalcification found on diagnostic imaging of breast
CPT/HCPCS: 19081; 88305; J7050; A4648

== ENCOUNTER → 2022-12-20 | Outpatient (CLI) | payer MEDICARE, MEDICAID, SELFPAY ==
[2022-12-20 12:51] LABS: Absolute Lymphocyte Count 3.72 X10^3/uL (0.83-4.51); Absolute Neutrophil Count 10.8 X10^3/uL (2.0-7.7); Basophil# 0.07 X10^3/uL; Basophil% 0.4 % (0-1); Eosinophil# 0.16 X10^3/uL; Hematocrit 44.9 % (37-47); Hemoglobin 14.8 g/dL (12.0-15.0); Lymphocyte # 3.72 X10^3/ul (0.83-4.51); Lymphocyte % 23.9 % (19-41); Mean Corpuscular Hgb 31.6 pg (27.0-32.0); Mean Corpuscular Volume 95.7 fL (81-99); Mean Platelet Vol. 9.7 fl (6.2-12.0); Monocyte# 0.76 X10^3/uL; Monocyte% 4.9 % (0-10); NRBC Flagged by Analyzer 0 % (0-5); Neutrophil # 10.77 X10^3/uL (2.7-7.7); Neutrophil % 69.1 % (47-70); Platelet Count 411 K/mm3 (150-450); RBC Distribution Width CV 14.3 % (11.6-14.6); RBC Distribution Width SD 49.9 fl (35.1-43.9); Red Blood Count 4.69 M/mm3 (4.2-5.4); White Blood Count 15.6 K/mm3 (4.4-11.0)
[2022-12-20 12:52] LABS: Microalbumin:Creatinine Ratio 32.1 mg/g CRE (<30 mg/g CRE)
[2022-12-20 13:08] LABS: ALB/GLOB Ratio 0.7 RATIO (0.9-2.4); AST(SGOT) 37 U/L (15-37); Alanine Aminotransfer ALT/SGPT 32 U/L (13-56); Albumin, Serum 3.3 g/dL (3.2-5.0); Alkaline Phosphatase 82 U/L (45-117); Anion Gap 7 (5-15); BUN 17 mg/dL (7-18); BUN/Creat Ratio 13.3 RATIO (10-20); Calcium,Total 9.2 mg/dL (8.5-10.1); Chloride 102 mmol/L (98-107); Creatinine, Serum 1.28 mg/dL (0.55-1.02); EST Glomerular Filtration Rate 46 mL/min (>60); Est Glom Filt Rate - Afr Amer 56 mL/min (>60); Globulin 4.8 g/dL (2.2-4.2); Glucose 147 mg/dL (74-106); Potassium 4.3 mmol/L (3.5-5.1); Protein, Total 8.1 g/dL (6.4-8.2); Sodium Level 136 mmol/L (136-145)
[2022-12-20 13:20] LABS: Hemoglobin A1c 7.1 % (3.8-5.6)
== END | disposition home or self-care (01) ==
LOC: MFPLAB 09:33
PROVIDERS: PCP Family Medicine; Referring Provider Family Medicine; Visit Provider Family Medicine
DX: E11.40 Type 2 diabetes mellitus with diabetic neuropathy, unspecified (principal)
CPT/HCPCS: 36415; 80053; 82043; 82570; 83036; 85025

== ENCOUNTER → 2023-06-30 | Outpatient (CLI) | payer MEDICARE, MEDICAID, SELFPAY ==
[2023-06-30 12:03] LABS: Absolute Lymphocyte Count 3.79 X10^3/uL (0.83-4.51); Absolute Neutrophil Count 9.9 X10^3/uL (2.0-7.7); Basophil# 0.06 X10^3/uL; Basophil% 0.4 % (0-1); Eosinophil# 0.11 X10^3/uL; Eosinophils% 0.8 % (0-5); Hematocrit 41.9 % (37-47); Hemoglobin 14.1 g/dL (12.0-15.0); Lymphocyte # 3.79 X10^3/ul (0.83-4.51); Lymphocyte % 26.1 % (19-41); Mean Corp Hgb Conc 33.7 g/dL (32-36); Mean Corpuscular Hgb 32.3 pg (27.0-32.0); Mean Corpuscular Volume 95.9 fL (81-99); Mean Platelet Vol. 9.2 fl (6.2-12.0); Monocyte# 0.61 X10^3/uL; Monocyte% 4.2 % (0-10); NRBC Flagged by Analyzer 0 % (0-5); Neutrophil # 9.85 X10^3/uL (2.7-7.7); Neutrophil % 67.9 % (47-70); Platelet Count 411 K/mm3 (150-450); RBC Distribution Width CV 14.9 % (11.6-14.6); Red Blood Count 4.37 M/mm3 (4.2-5.4); White Blood Count 14.5 K/mm3 (4.4-11.0)
[2023-06-30 12:33] LABS: ALB/GLOB Ratio 0.7 RATIO (0.9-2.4); AST(SGOT) 27 U/L (15-37); Alanine Aminotransfer ALT/SGPT 30 U/L (13-56); Albumin, Serum 3.1 g/dL (3.2-5.0); Alkaline Phosphatase 97 U/L (45-117); Anion Gap 6 (5-15); BUN 14 mg/dL (7-18); BUN/Creat Ratio 11.2 RATIO (10-20); Calcium,Total 8.8 mg/dL (8.5-10.1); Chloride 107 mmol/L (98-107); Cholesterol 173 mg/dL (200); Creatinine, Serum 1.25 mg/dL (0.55-1.02); EST Glomerular Filtration Rate 48 mL/min (>60); Est Glom Filt Rate - Afr Amer 57 mL/min (>60); Globulin 4.4 g/dL (2.2-4.2); Glucose 168 mg/dL (74-106); High Density Lipoprotein 34 mg/dL; Potassium 4.2 mmol/L (3.5-5.1); Protein, Total 7.5 g/dL (6.4-8.2); Sodium Level 136 mmol/L (136-145); Thyroid Stim Hormone (TSH) 2.06 uIU/mL (0.358-3.74); Triglycerides 193 mg/dL; Very Low Density Lipoprotein 39 mg/dL (5-40)
[2023-06-30 12:37] LABS: PTHIN 64.7 pg/mL (18.4-80.1)
[2023-06-30 13:17] LABS: Hemoglobin A1c 6.5 % (3.8-5.6)
== END | disposition home or self-care (01) ==
LOC: MTLAB 11:06
PROVIDERS: PCP Family Medicine; Referring Provider Family Medicine; Visit Provider Family Medicine
DX: J45.30 Mild persistent asthma, uncomplicated (principal); I50.30 Unspecified diastolic (congestive) heart failure; E11.40 Type 2 diabetes mellitus with diabetic neuropathy, unspecified; E11.22 Type 2 diabetes mellitus with diabetic chronic kidney disease; N18.31 Chronic kidney disease, stage 3a
CPT/HCPCS: 36415; 80053; 80061; 82306; 83036; 83970; 84443; 85025

== ENCOUNTER → 2023-07-03 | Outpatient (CLI) | payer MEDICARE, MEDICAID, SELFPAY ==
[2023-07-03 16:52] LABS: Mucous, Urine 0 SEEN /hpf (<or=2+); Red Blood Cells-Urine 0 SEEN /hpf (0-5)
[2023-07-03 18:19] LABS: Color, Urine Yellow (Yellow); Glucose, Dipstick Normal (Normal); Ketone-Dipstick 5 mg/dl (Negative); Leukocyte Esterase-Dipstick 100 /ul (Negative); Nitrite-Dipstick Positive (Negative); Occult Blood-Urine Negative /ul (Negative); Protein-Dipstick 30 mg/dl (Negative); Urine Bilirubin Dipstick Negative (Negative); Urine Clarity Sl. Cloudy (Clear); Urine Urobilinogen Normal (Normal)
[2023-07-03 18:52] LABS: Amorphous Sediment 1+ URATE; Bacteria 3+ /hpf (None Seen); Squamous Epithelial Cells - UA 0-5 SEEN /hpf (5-10); White Blood Cells 10-25 SEEN /hpf (0-5)
== END | disposition home or self-care (01) ==
LOC: LABSPEC 16:49
PROVIDERS: PCP Family Medicine; Visit Provider Family Medicine
DX: R30.0 Dysuria (principal)
CPT/HCPCS: 81001; 87077; 87086; 87088; 87186

== ENCOUNTER → 2023-08-28 | Outpatient (CLI) | payer MEDICARE, MEDICAID, SELFPAY ==
--- NOTE | 2023-08-28 13:21 | BI_ITS ---
MAMMOGRAPHY - BILATERAL SCREENING REASON FOR EXAM: Female, 53 years old. Routine annual screening examination. PERTINENT HISTORY: Non-contributory. TECHNIQUE: Digital bilateral breast zelalem (3D mammographic acquisition) in the CC and MLO projections. 2-D mediolateral oblique (MLO) and craniocaudad (CC) views of both breasts were obtained. CAD: Full Field Digital Mammography with Computer Added Detection was performed. COMPARISON: Comparison is made with prior study of June 16, 2022 and March 02, 2019. FINDINGS: Breast Composition: The breasts are almost entirely fatty. There are no dominant masses or suspicious calcifications. The previously seen partially calcified nodule in the deep mid medial posterior aspect of the right breast has decreased in size. 2 tissue markers are seen within it. No other significant abnormalities are identified. BI/SCRN MAMM (CAD)W/ZELALEM BILAT IMPRESSION: Status post ultrasound-guided biopsy of the partially calcified nodule in the right breast as described. Yearly follow-up mammogram recommended. (A) ASSESSMENT CATEGORY: BIRADS Category 2: Benign. A letter regarding these results will be sent to the patient by the facility within 30 days. Approximately 10% of breast cancers are not detected by mammography. A normal mammogram should not delay biopsy of a clinically suspicious abnormality. [id number] Electronically Signed: Rufus Pike MD at 14:24 EST ,
== END | disposition home or self-care (01) ==
LOC: OPBI 13:20
PROVIDERS: PCP Family Medicine; Referring Provider Family Medicine; Visit Provider Family Medicine
DX: Z12.31 Encounter for screening mammogram for malignant neoplasm of breast (principal)
CPT/HCPCS: 77063; 77067

== ENCOUNTER → 2023-10-03 | Outpatient (CLI) | payer MEDICARE, MEDICAID, SELFPAY ==
[2023-10-03 12:14] LABS: Absolute Lymphocyte Count 4.01 X10^3/uL (0.83-4.51); Absolute Neutrophil Count 14.2 X10^3/uL (2.0-7.7); Basophil% 0.5 % (0-1); Eosinophil# 0.14 X10^3/uL; Eosinophils% 0.7 % (0-5); Hematocrit 46.6 % (37-47); Hemoglobin 15.2 g/dL (12.0-15.0); Lymphocyte # 4.01 X10^3/ul (0.83-4.51); Lymphocyte % 20.7 % (19-41); Mean Corp Hgb Conc 32.6 g/dL (32-36); Mean Corpuscular Hgb 30.7 pg (27.0-32.0); Mean Corpuscular Volume 94.1 fL (81-99); Mean Platelet Vol. 9.3 fl (6.2-12.0); Monocyte# 0.84 X10^3/uL; Monocyte% 4.3 % (0-10); NRBC Flagged by Analyzer 0 % (0-5); Neutrophil # 14.17 X10^3/uL (2.7-7.7); Neutrophil % 73.2 % (47-70); Platelet Count 462 K/mm3 (150-450); RBC Distribution Width CV 14.9 % (11.6-14.6); RBC Distribution Width SD 51.8 fl (35.1-43.9); Red Blood Count 4.95 M/mm3 (4.2-5.4); White Blood Count 19.4 K/mm3 (4.4-11.0)
[2023-10-03 12:39] LABS: Vitamin D,25 Hydroxy 59.9 ng/mL
[2023-10-03 12:43] LABS: ALB/GLOB Ratio 0.7 RATIO (0.9-2.4); AST(SGOT) 26 U/L (15-37); Alanine Aminotransfer ALT/SGPT 24 U/L (13-56); Albumin, Serum 3.4 g/dL (3.2-5.0); Alkaline Phosphatase 83 U/L (45-117); Anion Gap 3 (5-15); BUN 17 mg/dL (7-18); BUN/Creat Ratio 12.4 RATIO (10-20); Calcium,Total 9.6 mg/dL (8.5-10.1); Chloride 108 mmol/L (98-107); Cholesterol 206 mg/dL (200); Creatinine, Serum 1.37 mg/dL (0.55-1.02); EST Glomerular Filtration Rate 43 mL/min (>60); Est Glom Filt Rate - Afr Amer 52 mL/min (>60); Globulin 4.7 g/dL (2.2-4.2); Glucose 87 mg/dL (74-106); High Density Lipoprotein 33 mg/dL; Potassium 4.5 mmol/L (3.5-5.1); Protein, Total 8.1 g/dL (6.4-8.2); Sodium Level 135 mmol/L (136-145)
[2023-10-03 13:11] LABS: Hemoglobin A1c 6.1 % (3.8-5.6)
== END | disposition home or self-care (01) ==
LOC: MFPLAB 11:04
PROVIDERS: PCP Family Medicine; Visit Provider Family Medicine
DX: N18.31 Chronic kidney disease, stage 3a (principal); E11.22 Type 2 diabetes mellitus with diabetic chronic kidney disease
CPT/HCPCS: 36415; 80053; 82306; 82465; 83036; 83718; 85025

== ENCOUNTER → 2024-01-15 | Outpatient (CLI) | payer MEDICARE, MEDICAID, SELFPAY ==
[2024-01-15 18:09] LABS: Color, Urine Yellow (Yellow); Glucose, Dipstick Normal (Normal); Ketone-Dipstick 5 mg/dl (Negative); Leukocyte Esterase-Dipstick 100 /ul (Negative); Nitrite-Dipstick Negative (Negative); Occult Blood-Urine 10 /ul (Negative); Protein-Dipstick 100 mg/dl (Negative); Specific Gravity, Urine 1.015 (1.002-1.030); Urine Bilirubin Dipstick Negative (Negative); Urine Clarity Sl. Cloudy (Clear); Urine Urobilinogen Normal (Normal)
[2024-01-15 18:15] LABS: Absolute Lymphocyte Count 4.54 X10^3/uL (0.83-4.51); Absolute Neutrophil Count 19.3 X10^3/uL (2.0-7.7); Basophil# 0.15 X10^3/uL; Basophil% 0.6 % (0-1); Eosinophil# 0.13 X10^3/uL; Eosinophils% 0.5 % (0-5); Hematocrit 46.9 % (37-47); Hemoglobin 15.7 g/dL (12.0-15.0); Lymphocyte # 4.54 X10^3/ul (0.83-4.51); Lymphocyte % 17.8 % (19-41); Mean Corp Hgb Conc 33.5 g/dL (32-36); Mean Corpuscular Hgb 31.1 pg (27.0-32.0); Mean Corpuscular Volume 92.9 fL (81-99); Mean Platelet Vol. 9.1 fl (6.2-12.0); Monocyte# 1.02 X10^3/uL; NRBC Flagged by Analyzer 0 % (0-5); Neutrophil # 19.33 X10^3/uL (2.7-7.7); Neutrophil % 75.7 % (47-70); Platelet Count 461 K/mm3 (150-450); RBC Distribution Width CV 15.7 % (11.6-14.6); Red Blood Count 5.05 M/mm3 (4.2-5.4); White Blood Count 25.5 K/mm3 (4.4-11.0)
[2024-01-15 18:41] LABS: BNP,B-Type NATRIURETIC PEPTIDE 22.4 pg/mL (0-100)
[2024-01-15 18:52] LABS: ALB/GLOB Ratio 0.8 RATIO (0.9-2.4); AST(SGOT) 30 U/L (15-37); Alanine Aminotransfer ALT/SGPT 23 U/L (13-56); Albumin, Serum 3.7 g/dL (3.2-5.0); Alkaline Phosphatase 90 U/L (45-117); Anion Gap 12 (5-15); BUN 15 mg/dL (7-18); BUN/Creat Ratio 8.6 RATIO (10-20); Calcium,Total 9.5 mg/dL (8.5-10.1); Chloride 103 mmol/L (98-107); Creatinine, Serum 1.75 mg/dL (0.55-1.02); EST Glomerular Filtration Rate 32 mL/min (>60); Est Glom Filt Rate - Afr Amer 39 mL/min (>60); Globulin 4.8 g/dL (2.2-4.2); Glucose 135 mg/dL (74-106); Magnesium 1.9 mg/dL (1.6-2.6); Potassium 3.8 mmol/L (3.5-5.1); Protein, Total 8.5 g/dL (6.4-8.2); Sodium Level 134 mmol/L (136-145); Thyroid Stim Hormone (TSH) 2.36 uIU/mL (0.358-3.74)
== END | disposition home or self-care (01) ==
LOC: MFPLAB 16:30
PROVIDERS: PCP Family Medicine; Visit Provider Family Medicine
DX: R42 Dizziness and giddiness (principal); I50.30 Unspecified diastolic (congestive) heart failure; D72.829 Elevated white blood cell count, unspecified
CPT/HCPCS: 36415; 80053; 81002; 83735; 83880; 84443; 85025; 86140

== ENCOUNTER → 2024-07-15 | Outpatient (CLI) | payer MEDICARE, MEDICAID, SELFPAY ==
[2024-07-15 12:08] LABS: Absolute Lymphocyte Count 3.37 X10^3/uL (0.83-4.51); Absolute Neutrophil Count 11.5 X10^3/uL (2.0-7.7); Basophil# 0.05 X10^3/uL; Basophil% 0.3 % (0-1); Eosinophil# 0.12 X10^3/uL; Eosinophils% 0.8 % (0-5); Hematocrit 42.7 % (37-47); Lymphocyte # 3.37 X10^3/ul (0.83-4.51); Lymphocyte % 21.3 % (19-41); Mean Corp Hgb Conc 32.8 g/dL (32-36); Mean Corpuscular Hgb 29.9 pg (27.0-32.0); Mean Corpuscular Volume 91.2 fL (81-99); Mean Platelet Vol. 8.8 fl (6.2-12.0); Monocyte# 0.66 X10^3/uL; Monocyte% 4.2 % (0-10); NRBC Flagged by Analyzer 0 % (0-5); Neutrophil % 72.8 % (47-70); Platelet Count 419 K/mm3 (150-450); RBC Distribution Width CV 15.1 % (11.6-14.6); Red Blood Count 4.68 M/mm3 (4.2-5.4); White Blood Count 15.8 K/mm3 (4.4-11.0)
[2024-07-15 13:28] LABS: ALB/GLOB Ratio 0.8 RATIO (0.9-2.4); AST(SGOT) 20 U/L (15-37); Alanine Aminotransfer ALT/SGPT 19 U/L (13-56); Albumin, Serum 3.3 g/dL (3.2-5.0); Alkaline Phosphatase 87 U/L (45-117); Anion Gap 7 (5-15); BUN 16 mg/dL (7-18); BUN/Creat Ratio 10.8 RATIO (10-20); Calcium,Total 9.4 mg/dL (8.5-10.1); Chloride 104 mmol/L (98-107); Creatinine, Serum 1.48 mg/dL (0.55-1.02); EST Glomerular Filtration Rate 39 mL/min (>60); Est Glom Filt Rate - Afr Amer 47 mL/min (>60); Globulin 4.4 g/dL (2.2-4.2); Glucose 121 mg/dL (74-106); Potassium 4.4 mmol/L (3.5-5.1); Protein, Total 7.7 g/dL (6.4-8.2); Sodium Level 136 mmol/L (136-145)
[2024-07-15 13:45] LABS: Microalbumin,Random Urine 32.1 mg/L (NO RANGE EST.); Microalbumin:Creatinine Ratio 19.6 mg/g CRE (<30 mg/g CRE)
== END | disposition home or self-care (01) ==
LOC: MFPLAB 10:31
PROVIDERS: PCP Family Medicine; Visit Provider Family Medicine
DX: E11.40 Type 2 diabetes mellitus with diabetic neuropathy, unspecified (principal)
CPT/HCPCS: 36415; 80053; 82043; 82570; 83036; 85025

== ENCOUNTER → 2024-08-29 | Outpatient (CLI) | payer MEDICARE, MEDICAID, SELFPAY ==
--- NOTE | 2024-08-29 08:15 | BI_ITS ---
MAMMOGRAPHY - BILATERAL SCREENING REASON FOR EXAM: Female, 54 years old. Routine annual screening examination. PERTINENT HISTORY: History of prior bilateral reduction surgery as well as right stereotactic breast biopsies. TECHNIQUE: Digital bilateral breast zelalem (3D mammographic acquisition) in the CC and MLO projections. 2-D mediolateral oblique (MLO) and craniocaudad (CC) views of both breasts were obtained. CAD: Full Field Digital Mammography with Computer Added Detection was performed. COMPARISON: Comparison is made with prior study dated August 28, 2023 and June 16, 2022. FINDINGS: Breast Composition: The breasts are almost entirely fatty. The amorphous calcifications in the central portion of the right breast are unchanged. This most likely represents dystrophic calcification. A tissue clip marker is seen within a tiny nodule. There has been no change. No other significant abnormalities are identified. There has been no significant change since the prior study. BI/SCRN MAMM (CAD)W/ZELALEM BILAT IMPRESSION: Stable bilateral screening mammogram. Yearly follow-up mammogram recommended. (A) ASSESSMENT CATEGORY: BIRADS Category 2: Benign. A letter regarding these results will be sent to the patient by the facility within 30 days. Approximately 10% of breast cancers are not detected by mammography. A normal mammogram should not delay biopsy of a clinically suspicious abnormality. [id number] Electronically Signed: Rufus Pike MD at 9:39 EST ,
== END | disposition home or self-care (01) ==
LOC: OPBI 08:13
PROVIDERS: PCP Family Medicine; Referring Provider Family Medicine; Visit Provider Family Medicine
DX: Z12.31 Encounter for screening mammogram for malignant neoplasm of breast (principal)
CPT/HCPCS: 77063; 77067

== ENCOUNTER → 2024-11-11 | Outpatient (CLI) | payer MEDICARE, MEDICAID, SELFPAY ==
[2024-11-11 15:36] LABS: Absolute Lymphocyte Count 3.48 X10^3/uL (0.83-4.51); Absolute Neutrophil Count 10.3 X10^3/uL (2.0-7.7); Basophil# 0.06 X10^3/uL; Basophil% 0.4 % (0-1); Eosinophil# 0.08 X10^3/uL; Eosinophils% 0.5 % (0-5); Hematocrit 45.3 % (37-47); Hemoglobin 15.4 g/dL (12.0-15.0); Lymphocyte # 3.48 X10^3/ul (0.83-4.51); Lymphocyte % 23.9 % (19-41); Mean Corpuscular Hgb 32.2 pg (27.0-32.0); Mean Corpuscular Volume 94.6 fL (81-99); Mean Platelet Vol. 9.1 fl (6.2-12.0); Monocyte# 0.59 X10^3/uL; NRBC Flagged by Analyzer 0 % (0-5); Neutrophil # 10.29 X10^3/uL (2.7-7.7); Neutrophil % 70.7 % (47-70); Platelet Count 440 K/mm3 (150-450); RBC Distribution Width CV 15.5 % (11.6-14.6); RBC Distribution Width SD 54.1 fl (35.1-43.9); Red Blood Count 4.79 M/mm3 (4.2-5.4); White Blood Count 14.6 K/mm3 (4.4-11.0)
[2024-11-11 15:48] LABS: Microalbumin,Random Urine 90.7 mg/L (NO RANGE EST.)
[2024-11-11 16:00] LABS: ALB/GLOB Ratio 0.7 RATIO (0.9-2.4); AST(SGOT) 18 U/L (15-37); Alanine Aminotransfer ALT/SGPT 17 U/L (13-56); Albumin, Serum 3.2 g/dL (3.2-5.0); Alkaline Phosphatase 83 U/L (45-117); Anion Gap 8 (5-15); BUN 13 mg/dL (7-18); BUN/Creat Ratio 8.3 RATIO (10-20); Calcium,Total 9.1 mg/dL (8.5-10.1); Chloride 106 mmol/L (98-107); Cholesterol 160 mg/dL (200); Creatinine, Serum 1.56 mg/dL (0.55-1.02); EST Glomerular Filtration Rate 37 mL/min (>60); Est Glom Filt Rate - Afr Amer 44 mL/min (>60); Globulin 4.6 g/dL (2.2-4.2); Glucose 86 mg/dL (74-106); High Density Lipoprotein 34 mg/dL; Potassium 4.5 mmol/L (3.5-5.1); Protein, Total 7.8 g/dL (6.4-8.2); Sodium Level 135 mmol/L (136-145); Triglycerides 158 mg/dL; Very Low Density Lipoprotein 32 mg/dL (5-40)
[2024-11-11 16:37] LABS: Hemoglobin A1c 5.2 % (3.8-5.6)
== END | disposition home or self-care (01) ==
LOC: MFPLAB 10:23
PROVIDERS: PCP Family Medicine; Referring Provider Family Medicine; Visit Provider Family Medicine
DX: J44.9 Chronic obstructive pulmonary disease, unspecified (principal); E11.40 Type 2 diabetes mellitus with diabetic neuropathy, unspecified; E11.22 Type 2 diabetes mellitus with diabetic chronic kidney disease; N18.31 Chronic kidney disease, stage 3a
CPT/HCPCS: 36415; 80053; 80061; 82043; 82570; 83036; 85025

== ENCOUNTER 2024-11-29 17:26 | Outpatient (CLI) | payer MEDICARE, MEDICAID, SELFPAY ==
--- NOTE | 2024-11-29 17:30 | CT_ITS ---
PROCEDURE: LOW DOSE CT LUNG SCREENING REASON FOR EXAM: Nicotine dependence. Lung cancer screening TECHNIQUE: Contiguous unenhanced axial CT images were obtained through the chest. Sagittal and coronal reformats were created. COMPARISON: None available FINDINGS: Bones/soft tissues: Bones are osteopenic with degenerative changes in the spine. Ribs grossly intact. Upper abdomen: Grossly unremarkable, although evaluation is significantly limited on this study. There is moderate ingested material in the stomach. Mediastinum: Evaluation of hilar/vascular/mediastinal structures is limited due to lack of intravenous contrast. Heart is not enlarged. No sizable pericardial effusion. No thoracic adenopathy. Soft tissue detail is limited on this study. Thoracic aorta normal in caliber. Minimal secretions in the trachea. Central airway otherwise clear. Lungs: The lungs are mildly emphysematous without focal airspace consolidation, pneumothorax, or pleural effusion. No dominant pulmonary parenchymal nodule. There is some mucous plugging involving a left lingular subsegmental bronchus on images 100-101 of the coronal lung windows. CT/Low Dose CT Lung Screening IMPRESSION: Mild emphysema. No acute findings in the chest. No dominant pulmonary nodule or thoracic adenopathy. Mild mucous plugging involving a subsegmental bronchus of the left lingula. Lung rads: Category 2. Benign findings. Recommend follow-up lung screening CT in 1 year. One or more dose reduction techniques were used (e.g., Automated exposure contr ol, adjustment of the mA and/or kV according to patient size, use of iterative reconstruction technique). The following information is provided for reference:Lung-RADS 2021 Assessment C ategories. Additional information involving Lung-RADS is available at www.acr.org. 0-INCOMPLETE 1-NEGATIVE:No nodules or definitely benign nodules. Complete, central, popcorn , or centric ring calcifications OR fat containing 2-BENIGN APPEARANCE (based on imaging features or indolent behavior). Juxtaple ural nodule: < 10mm AND solid; smooth margins; oval, entiform, or triangular shape Solid nodule: <6mm at baseline or new< 4mm Part solid Nodule: < 6mm total mean diameter at baseline Nonsolid nodule:(GGN) < 30mm OR >=30mm stable or slowly growing Airway nodule, subsegmental at baseline, new, or stable Category 3 nodule stabl e or decreased in size at 6-month follow-up CT or Category 3 or 4A nodules that resolve on follow-up OR category 4B findings prov en to be benign following diagnotic work up. 3 - Probably Benign (Based on imaging features or behavior) Solid Nodule: >= 6 to <8mm at baseline OR new 4 to <6mm Part-solid nodule: >= 6mm toal mean diam. with solid component <6mm at baseline OR new < 6mm total mean diam. Non-solid nodule: GGN >= 30mm at baseline or new Atypical pulmonary cyst: Growing cystic component (mean diam.) of thick-walled cyst Category 4A nodule stable or decreased in size at 3-month follow-up CT (excl.ai rway). 4A - Suspicious Solid nodule: >=8 to < 15mm at baseline OR growing < 8mm OR new 6 to < 8mm Part solid nodule: >= 6mm total mean diam. w/ solid component >=6mm to < 8mm at baseline OR new or growing < 4mm solid component Airway nodule, segmental or more proximal at baseline or new Atypical pulmonary cyst: Thick-walled OR multilocular at baseline OR becomes mu ltilocular 4B - Very Suspicious Airway nodule, segmental or more proximal, and stable or growing Solid nodule: >= 15mm at baseline OR new or growing >= 8mm Part solid nodule: Solid component >= 8mm OR new or growing >= 4mm solid compon ent Atypical pulmonary cyst: Thick-walled with growing wall thickness/nodularity OR Growing multilocular (mean diam.) OR Multilocular with increased loculation or new/increased opacity Slow-growing solid or part solid nodule w/ growth over multiple screening exams 4X - Very Suspicious Category 3 or 4 nodules with additional features that increase the suspicion fo r lung cancer. S - Clinically Significant or potentially significant findings (non-lung cancer ) Reading Location: [id number]
== END 2024-11-29 23:59 | disposition home or self-care (01) ==
LOC: CT 17:28
PROVIDERS: PCP Family Medicine; Referring Provider Family Medicine; Visit Provider Family Medicine
DX: Z87.891 Personal history of nicotine dependence (principal)
CPT/HCPCS: 71271

== ENCOUNTER 2024-12-18 08:04 | Emergency (ER) | payer MEDICARE, MEDICAID, SELFPAY ==
[2024-12-18] VITALS (10 sets, daily range): BP systolic 75–120; BP diastolic 46–83; PULSE 76–91; RESP 14–18; TEMP 36.6–36.7; O2SAT 89–98; BMI 28.8
--- NOTE | 2024-12-18 08:34 | RAD_ITS ---
PROCEDURE: CHEST PA AND LATERAL REASON FOR EXAM: Chest pain. Hypotension and syncope. TECHNIQUE: Frontal and lateral views of the chest. COMPARISON: Comparison is made with prior study dated January 29, 2018. FINDINGS: EKG electrodes are seen. Stable mild elevation of the right hemidiaphragm. The lungs are clear. Demineralization of the thoracic vertebrae. RAD/Chest PA and Lateral IMPRESSION: No acute abnormality is seen. Reading Location: [id number]
[2024-12-18 09:08] LABS: Bedside Glucose 107 mg/dL (74-106)
--- NOTE | 2024-12-18 09:51 | EX.ED.DYSGE1 ---
HPI History of Present Illness Chief Complaint: Syncope Detail of Chief Complaint: Near syncope. No LOC. Informant: patient Onset/Context/Timing Onset: Today Timing: Intermittent Current Severity: Mild Maximum Severity: Mild Narrative Narrative: 54-year-old female history of COPD and diabetes. Was in radiology today to have testing done. [place] lightheaded and had low blood pressures they sent her to the ER. Denies any headache. No abdominal pain. No chest pain. She has chronic diarrhea that has not changed. Denies any melena. No vomiting. No fever. Denies any dysuria. She has had episodes like this before. She is on lisinopril but that is for diabetes to protect her kidneys. She is not typically treated for hypertension. Said her blood pressure often runs low. Prior similar symptoms: Yes Recent Illness/Hospitalization: No [facility] Medical History (Updated 12/18/24 @ 14:[address] Manpreet Zacarias MD) Gastric paresis GERD (gastroesophageal reflux disease) Thyroid disease Kidney stones IBS (irritable bowel syndrome) Migraines Back problem Asthma Arthritis Multiple allergies Sleep apnea in adult Chronic pain COPD (chronic obstructive pulmonary disease) Diabetes Home Medications ?Medication ?Instructions ?Recorded ?Last Taken ?Type atorvastatin 40 mg tablet 40 mg PO QHS cholesterol 03/05/18 Unknown History cetirizine 10 mg capsule 10 mg PO DAILY allergies 03/05/18 Unknown History cholecalciferol (vitamin D3) 125 5,000 unit PO DAILY supplement 03/05/18 Unknown History mcg (5,000 unit) disintegrating tablet duloxetine 60 mg capsule,delayed 60 mg PO DAILY anxiety 03/05/18 10/18/18 06:00 History release febuxostat 80 mg tablet 80 mg PO DAILY decrease uric acid 03/05/18 Unknown History fluticasone furoate 200 1 puff IH DAILY breathing 03/05/18 04/26/19 History mcg-vilanterol 25 mcg/dose inhalation powder lidocaine 5 % topical patch 1 patch Topical QHS pain 03/05/18 Unknown History metformin 1,000 mg tablet 1,000 mg PO DAILY diabetes 03/05/18 Unknown History montelukast 10 mg tablet 10 mg PO DAILY allergies 03/05/18 Unknown History omeprazole 20 mg capsule,delayed 40 mg PO DAILY gerd 03/05/18 06/21/19 History release potassium citrate 15 mEq (1,620 15 meq PO DAILY PRN with lasix 03/05/18 Unknown History mg) tablet,extended release sodium chloride 0.65 % nasal spray 1 spray NS Q2H PRN Allergies 03/05/18 Unknown History aerosol buprenorphine 20 mcg/hour weekly 20 mcg TRANSDERM. SA pain 10/11/18 06/20/19 History transdermal patch (Butrans) gabapentin 600 mg tablet,extended 800 mg PO TID pain 10/11/18 03/24/20 History release 24 hr (Gralise) liraglutide 0.6 mg/0.1 mL (18 mg/3 1.8 mg SQ DINNER diabetes 04/19/19 Unknown History mL) subcutaneous pen injector levothyroxine 100 mcg tablet 100 mcg PO DAILY thyroid 06/14/19 03/24/20 History irbesartan 75 mg tablet 75 mg PO QHS KIDNEYS 07/06/19 10/17/19 History promethazine 25 mg tablet 25 mg PO 4X/DAY PRN PRN 07/09/19 Unknown Rx NAUSEA/VOMITING #30 tabs nutrition tx glu 120 ml PO TID supplement 11/28/19 Unknown History intol,lac-free,soy-fiber 0.06 gram-1.2 kcal/mL liquid fluconazole 150 mg tablet 150 mg PO DAILY #14 tabs 01/06/20 Unknown Rx doxycycline hyclate 100 mg capsule 100 mg PO BID #14 caps 03/24/20 Unknown Rx fluconazole 150 mg tablet 150 mg PO DAILY #5 tabs 03/24/20 Unknown Rx doxycycline monohydrate 100 mg 100 mg PO BID antibiotic #42 tabs 03/30/20 Unknown Rx tablet Allergy/AdvReac Type Severity Reaction Status Date / Time albuterol Allergy Laryngospas Verified 12/18/24 08:07 ms codeine Allergy Rash Verified 12/18/24 08:07 nabumetone (From Relafen) Allergy Rash Verified 12/18/24 08:07 Sulfa (Sulfonamide Allergy Rash Verified 12/18/24 08:07 Antibiotics) pregabalin (From Lyrica) AdvReac confusion/d Verified 12/18/24 08:07 elirium Family History Mother Cervical cancer Grandmother Arthritis Diabetes Grandfather Bleeding disorder Bowel disease Heart disease Aunt Throat cancer Father Diabetes Surgical History Cervical cancer Carpal tunnel syndrome Previous section gallbladder removal Social History Smoking Status: Current some day smoker tobacco type: cigarettes alcohol intake: never substance use type: does not use additional social history: DOES USE ASPIRIN DOES NOT USE IBUPROFEN ROS ROS ED ROS Narrative Chronic diarrhea. No recent illness. Constitutional Constitutional ED: Denies chills or fever(s) Eyes Eyes: Denies blurry vision ENT ENT ED: Denies ear pain Cardiovascular Cardiovascular: Denies chest pain Respiratory/Chest Respiratory/Chest: Denies cough or dyspnea Gastrointestinal Gastrointestinal: Reports diarrhea; Denies abdominal pain, constipation, melena, nausea or vomiting Genitourinary Genitourinary ED: Denies hematuria Musculoskeletal Musculoskeletal: Denies arthralgias or back pain Integumentary Denies abscess Neurologic Neurologic: Denies headache(s) Psychiatric Psychiatric: Denies anxiety Endocrine Endocrinology: Denies cold intolerance Hematologic/Lymphatic Hematologic/Lymphatic: Reports none Allergic/Immunologic Allergic/Immunologic ED: Denies mouth swelling, tongue swelling or urticaria EXAM Physical Exam Narrative Exam Narrative: 54-year-old female initial blood pressure 75/46 she is sitting upright in bed tolerating it well. Afebrile. Pulse ox 91% on room air no hypoxia. She is a COPD year. H EENT exam pupils round reactive light. No facial droop. Moist mucous membranes. No trauma. Neck nontender no JVD. No lymphadenopathy. Lungs coarse breath sounds bilaterally. No Rales or rhonchi. Few scattered expiratory wheezes. COPD patient. Heart regular rhythm rate about 90 no murmur. Chest wall ribs nontender. Abdomen soft nontender. Moving all 4 extremities. Nontender no edema. No deformity. 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 Normal dorsi plantarflexion. Neurologically he is awake and alert with no focal motor deficits. Answering questions following commands. Const Vital Signs: 12/18/24 08:05 12/18/24 08:32 12/18/24 10:15 Temperature 98.1 F Temperature Source Temporal Pulse Rate 91 78 Respiratory Rate 16 16 Respiratory Effort Normal Non-Labored Respiratory Pattern Normal Blood Pressure 75/46 L 83/56 L Blood Pressure Mean 55 65 Pulse Ox 91 89 Oxygen Delivery Method Room Air Room Air Oxygen Flow Rate (L/min) 12/18/24 10:16 12/18/24 10:51 12/18/24 11:59 Temperature Temperature Source Pulse Rate 79 76 Respiratory Rate 16 14 Respiratory Effort Respiratory Pattern Blood Pressure 94/63 108/80 Blood Pressure Mean 73 89 Pulse Ox 96 98 97 Oxygen Delivery Method Nasal Cannula Nasal Cannula Room Air Oxygen Flow Rate (L/min) 2 2 12/18/24 13:14 12/18/24 14:00 12/18/24 14:34 Temperature 97.8 F Temperature Source Oral Pulse Rate 88 78 76 Respiratory Rate 18 14 16 Respiratory Effort Respiratory Pattern Blood Pressure 109/73 120/83 H 106/78 Blood Pressure Mean 85 95 87 Pulse Ox 97 96 95 Oxygen Delivery Method Nasal Cannula Room Air Nasal Cannula Oxygen Flow Rate (L/min) 2 2 Positive well nourished and well developed; Negative for cachectic, contractures or unkempt General Appearance ED: well developed and NAD; Negative for unkempt, cachectic, contractures, cyanotic, diaphoretic or pallor Nutritional Appearance: Negative for cachectic HEENT Reports moist mucous membranes; Denies dry mucous membranes Negative for trauma or tenderness Mouth ED: No dry mucous membranes Mouth: No dry mucous membranes Eyes PERRL and EOMs intact bilaterally Neck no lymphadenopathy, supple and no JVD Chest Wall inspection of chest normal and palpation of chest normal Resp normal respiratory effort and clear to auscultation bilaterally Effort and Inspection: Negative for retractions Auscultation: wheezes expiratory wheezes (Few scattered expiratory wheezes. COPD history.); Negative for rales or rhonchi Cardio regular rate, regular rhythm, S1 normal heart sound, S2 normal heart sound and no murmurs GI normal to inspection, nondistended, normoactive bowel sounds, non-tender, non-distended and no masses Palpation: soft; Negative for tender, guarding or rebound tenderness present Back/Spine no CVA tenderness General Back: Negative for CVA tenderness Cervical Spine: Negative for cervical spine tenderness Thoracic Spine / Upper Back: Negative for thoracic spinal tenderness or paraspinal muscle tenderness Extremity normal to inspection General Extremety ED: Negative for edema or tenderness General Extremity: Negative for edema Neuro oriented x3 and CN's II-XII intact bilaterally Sensorium / Orientation: alert; Negative for orientation impaired, lethargic or stuporous Motor Exam: strength 5/5 throughout Psych mental status grossly normal Appearance: Negative for unkempt Attitude: No agitated Mood & Affect: Negative for depressed, anxious or tearful Skin no rashes or lesions noted and no wounds General Skin Exam: Negative for jaundice or pallor Lesions: No lesion noted Rashes: No rashes noted Trauma: Negative for abrasion Wounds: Negative for wounds noted MDM MDM MDM Narrative Medical decision making narrative: 54-year-old female hypotensive with a near syncopal episode. No other complaints. Benign exam. Will treat with IV fluids and screening labs to be obtained. Repeat exam patient is received 2 L of saline. He do not have a specific cause for her weakness and hypotension. I will speak to the hospitalist about admission. Patient is doing well on repeat exam at 2:45 PM. States she feels fine and wants to be discharged home does not want to be admitted. Currently her blood pressure was 106/78 she said for her that is actually very good. She does not feel lightheaded. Nurses that she was mildly hypoxic for on oxygen but I took her off the oxygen her pulse ox currently is 95 on room air. She had no trouble ambulating the bathroom and did not get short of breath. Should be discharged home with outpatient follow-up. I told her make sure she follows up with her primary care physician of her kidney function rechecked. Dr. Aron Palumbo there is her primary care physician I have he or who is ever on-call for him on page to ensure close follow-up. History & Record Review Discussion w/independent historian: Patient Lab Data Attestation: I reviewed the patient's lab results. Lab results narrative: CBC shows a white count of 16. H&H of 14 and 40. Platelets 363. Electrolytes show gap of 16. BUN and creatinine at 21 and 2.38. Creatinine typically runs around 1.7. Glucose 82. Lactic acid is elevated 2.3. Chest x-ray is normal. UA normal. No nitrates. No white or red cells. No bacteria. Labs are consistent with prior labs she chronically has a leukocytosis. Labs: Laboratory Results - last 24 hr 12/18/24 12/18/24 12/18/24 08:46 08:49 13:15 WBC 16.0 H RBC 4.30 Hgb 14.2 Hct 40.5 MCV 94.2 MCH 33.0 H MCHC 35.1 RDW Std Deviation 53.9 H RDW Coeff of Cipriano 15.8 H Plt Count 363 MPV 8.8 Immature Gran % (Auto) 0.600 Neut % (Auto) 76.0 H Lymph % (Auto) 17.3 L [place] % (Auto) 5.4 Eos % (Auto) 0.4 Baso % (Auto) 0.3 Absolute Neuts (auto) 12.2 H Absolute Lymphs (auto) 2.77 Nucleated RBC % 0 Sodium 136 Potassium 4.1 Chloride 98 Carbon Dioxide 22.2 Anion Gap 16 H BUN 21 H Creatinine 2.38 H Estim Creat Clear Calc 27.69 L Est GFR (MDRD) Non-Af 24 L BUN/Creatinine Ratio 8.6 L Glucose 82 Lactic Acid 2.3 H* Calcium 9.1 Urine Color Yellow Urine Clarity Sl. Cloudy Urine pH 6.0 Ur Specific [place] 1.015 Urine Protein 30 H Urine Glucose (UA) Normal Urine Ketones Negative Urine Occult Blood Negative Urine Nitrite Negative Urine Bilirubin Negative Urine Urobilinogen Normal Ur Leukocyte Esterase 25 H Urine RBC 0 SEEN Urine WBC 0-5 SEEN Ur Squamous Epith Cells 0-5 SEEN Urine Bacteria 0 SEEN Urine Mucus 0 SEEN POC Glucose 107 H Radiography Chest X-Ray - ED: 2 View, Read by ED Physician, Read by Radiologist, Heart, Lungs, Mediastinum, Bony Structures, No Acute Disease and Chronic Changes Diagnostic Testing: Clinical Impression(s) from Imaging Studies Chest X-Ray 12/18/24 08:34 IMPRESSION: No acute abnormality is seen. Reading Location: [facility] Chest x-ray, 2 views, AP and lateral: Interpreted by myself and the radiologist shows no acute abnormality. Rhythm Strip Rhythm Strip: Sinus Rhythm Rate: 81 Ectopy: None EKG Initial EKG: Attestation: I personally reviewed and interpreted this EKG as follows: Interpretation: Sinus Rhythm and No Acute Injury Pattern Comments: Normal sinus rhythm rate 80 No acute signs of NV or ischemia. No dysrhythmia. Discharge Plan Triage Chief Complaint: Syncope ED Provider: Manpreet Zacarias Dx/Rx/DC Orders Clinical Impression: Near syncope, Acute hypotension, Acute dehydration, History of diabetes mellitus, History of COPD Instructions: Hypotension Dc, ED Dehydration (Adult) Prescriptions: No Action metformin 1,000 MG tablet 1,000 mg PO DAILY omeprazole 20 MG capsule 40 mg PO DAILY montelukast 10 MG tablet 10 mg PO DAILY duloxetine 60 MG capsule,delayed release(DR/EC) 60 mg PO DAILY febuxostat 80 MG tablet 80 mg PO DAILY potassium citrate 15 MEQ tablet extended release 15 meq PO DAILY PRN (Reason: with lasix) Patient Comments: take with lasix as needed cetirizine 10 MG capsule 10 mg PO DAILY fluticasone furoate-vilanterol 1 EACH blister with device 1 puff IH DAILY cholecalciferol (vitamin D3) 5,000 UNIT tablet,disintegrating 5,000 unit PO DAILY atorvastatin 40 MG tablet 40 mg PO QHS lidocaine 1 PATCH patch 1 patch Topical QHS Patient Comments: Rx Instructions: on 12 hours, off 12 hours. PT USES 2 PATCHES sodium chloride 30 ML aerosol,spray 1 spray NS Q2H PRN (Reason: Allergies) buprenorphine [Butrans] 1 EACH patch weekly 20 mcg TRANSDERM. SA Patient Comments: on hold due to pain meds ordered Rx Instructions: WEARS FOR 7 DAYS doesnt have on now since taking oral meds for post op pain gabapentin [Gralise] 600 MG tablet extended release 24 hr 800 mg PO TID liraglutide 0.6 MG/0.1 ML pen injector 1.8 mg SQ DINNER levothyroxine 100 MCG tablet 100 mcg PO DAILY Patient Comments: pt states cannot take levothyroxine, only synthroid. irbesartan 75 MG tablet 75 mg PO QHS Patient Comments: on hold until after surgery per pt promethazine 25 MG tablet 25 mg PO 4X/DAY PRN PRN (Reason: NAUSEA/VOMITING) Qty: 30 1RF nut.tx.gluc intol,lf,soy-fiber 120 ML liquid 120 ml PO TID fluconazole 150 mg tablet 150 mg PO DAILY Qty: 14 1RF doxycycline hyclate 100 MG capsule 100 mg PO BID Qty: 14 0RF fluconazole 150 MG tablet 150 mg PO DAILY Qty: 5 0RF doxycycline monohydrate 100 MG tablet 100 mg PO BID Qty: 42 1RF Primary Care Provider: Aron Palumbo Referrals: Aron Palumbo MD [Primary Care Provider] - As soon as possible Activity Restrictions/Additional Instructions: Clinically think you are a little dehydrated from the diarrhea. Plenty of fluids and rest. Call and follow-up with primary care physician to be reseen. Your creatinine today was 2.38. That your kidney function. That needs to be rechecked in the next 1 to 2 weeks. Return if you are feeling worse. If your blood pressure is running around the 100 the upper number the systolic number. I would hold your lisinopril to your blood pressure is higher. It may also be making her blood pressure low. Print Language: Greenlandic Disposition Disposition: Home, Self Care
[2024-12-18] MEDS: 0.9% Normal Saline (1000mL) 1,000 ML 999 ML IV ×2 (10:11→10:51)
[2024-12-18 10:14] LABS: Absolute Lymphocyte Count 2.77 X10^3/uL (0.83-4.51); Absolute Neutrophil Count 12.2 X10^3/uL (2.0-7.7); Basophil# 0.05 X10^3/uL; Basophil% 0.3 % (0-1); Eosinophil# 0.06 X10^3/uL; Eosinophils% 0.4 % (0-5); Hematocrit 40.5 % (37-47); Hemoglobin 14.2 g/dL (12.0-15.0); Lymphocyte # 2.77 X10^3/ul (0.83-4.51); Lymphocyte % 17.3 % (19-41); Mean Corp Hgb Conc 35.1 g/dL (32-36); Mean Corpuscular Volume 94.2 fL (81-99); Mean Platelet Vol. 8.8 fl (6.2-12.0); Monocyte# 0.86 X10^3/uL; Monocyte% 5.4 % (0-10); NRBC Flagged by Analyzer 0 % (0-5); Neutrophil # 12.15 X10^3/uL (2.7-7.7); Platelet Count 363 K/mm3 (150-450); RBC Distribution Width CV 15.8 % (11.6-14.6); RBC Distribution Width SD 53.9 fl (35.1-43.9)
[2024-12-18 10:58] LABS: Lactic Acid 2.3 mmol/L (0.0-2.0)
[2024-12-18 11:47] LABS: Anion Gap 16 (5-15); BUN 21 mg/dL (4-19); BUN/Creat Ratio 8.6 RATIO (10-20); Calcium,Total 9.1 mg/dL (7.6-11.0); Carbon Dioxide 22.2 mmol/L (21.0-32.0); Chloride 98 mmol/L (98-108); Creatinine, Serum 2.38 mg/dL (0.70-1.20); EST Glomerular Filtration Rate 24 (>60); Estimated Creatinine Clearance 27.69 ml/min (50-250); Glucose 82 mg/dL (70-99); Potassium 4.1 mmol/L (3.3-5.1); Sodium Level 136 mmol/L (133-145)
[2024-12-18 13:29] LABS: Bacteria 0 SEEN /hpf (None Seen); Mucous, Urine 0 SEEN /hpf (<or=2+)
[2024-12-18 13:39] LABS: Color, Urine Yellow (Yellow); Glucose, Dipstick Normal (Normal); Ketone-Dipstick Negative (Negative); Leukocyte Esterase-Dipstick 25 /ul (Negative); Nitrite-Dipstick Negative (Negative); Occult Blood-Urine Negative /ul (Negative); Protein-Dipstick 30 mg/dl (Negative); Specific Gravity, Urine 1.015 (1.002-1.030); Urine Bilirubin Dipstick Negative (Negative); Urine Clarity Sl. Cloudy (Clear); Urine Urobilinogen Normal (Normal)
[2024-12-18 13:44] LABS: Squamous Epithelial Cells - UA 0-5 SEEN /hpf (5-10)
[2024-12-18 13:45] LABS: Red Blood Cells-Urine 0 SEEN /hpf (0-5); White Blood Cells 0-5 SEEN /hpf (0-5)
== END 2024-12-18 15:11 | disposition home or self-care (01) ==
PROVIDERS: Emergency Provider Emergency Medicine; PCP Family Medicine; Visit Provider Emergency Medicine
DX: R55 Syncope and collapse (principal); J44.9 Chronic obstructive pulmonary disease, unspecified; E11.9 Type 2 diabetes mellitus without complications; I95.9 Hypotension, unspecified; E86.0 Dehydration; Z79.51 Long term (current) use of inhaled steroids; Z79.84 Long term (current) use of oral hypoglycemic drugs; K21.9 Gastro-esophageal reflux disease without esophagitis; Z79.899 Other long term (current) drug therapy; Z79.85 Long-term (current) use of injectable non-insulin antidiabetic drugs; Z85.41 Personal history of malignant neoplasm of cervix uteri; F17.210 Nicotine dependence, cigarettes, uncomplicated
CPT/HCPCS: 71046; 80048; 81001; 82962; 83605; 85025; 93005; 99284; A4216

== ENCOUNTER → 2024-12-18 | Outpatient (CLI) | payer MEDICARE, MEDICAID, SELFPAY ==
--- NOTE | 2024-12-18 06:45 | CT_ITS ---
PROCEDURE: SOFT TISSUE NECK WITHOUT CONTR REASON FOR EXAM: 3 year history of right-sided neck mass. TECHNIQUE: CT of the soft tissues of the neck from the orbits to the upper mediastinum without intravenous contrast administration. COMPARISON: None. FINDINGS: Airway: Midline and patent. Salivary glands: Unremarkable. Lymph nodes: The palpable lump corresponds to a 1.1 cm 1.7 cm soft tissue density suggestive of a lymph node overlying the distal portion of the right sternocleidomastoid muscle. A similar-appearing soft tissue density is seen overlying the anterior distal portion of the left sternocleidomastoid measuring 1 cm x 6.7 mm. Thyroid: Calcific densities in the right lobe of the thyroid gland. Vasculature: Carotid arteries and internal jugular veins are unremarkable. Orbits: Unremarkable at visualized levels. Paranasal sinuses and mastoids: Grossly clear at visualized levels. Lung apices: Clear. Upper mediastinum: Visualized mediastinum is unremarkable. Bones: Multilevel degenerative changes of the spine. CT/Soft Tissue Neck without Contr IMPRESSION: The palpable lump corresponds to a 1.1 cm x 1.7 cm soft tissue density most lik taylor a lymph node overlying the distal portion of the right sternocleidomastoid muscle. A similar-appearing nodular density leslie uring 1 cm x 0.7 cm is seen in the left side. One or more dose reduction techniques were used (e.g., Automated exposure contr ol, adjustment of the mA and/or kV according to patient size, use of iterative reconstruction technique). Reading Location: [id number]
[2024-12-18 07:13] LABS: CREATININE FINGERSTICK 2.1 mg/dL (0.55-1.02)
== END | disposition home or self-care (01) ==
LOC: CT 06:42
PROVIDERS: PCP Family Medicine; Referring Provider Otolaryngology; Visit Provider Otolaryngology
DX: R22.1 Localized swelling, mass and lump, neck (principal)
CPT/HCPCS: 70490

== ENCOUNTER → 2024-12-26 | Outpatient (CLI) | payer MEDICARE, MEDICAID, SELFPAY ==
[2024-12-26 15:17] LABS: Absolute Lymphocyte Count 3.36 X10^3/uL (0.83-4.51); Basophil# 0.05 X10^3/uL; Basophil% 0.3 % (0-1); Eosinophil# 0.06 X10^3/uL; Eosinophils% 0.4 % (0-5); Hematocrit 41.8 % (37-47); Hemoglobin 14.3 g/dL (12.0-15.0); Lymphocyte # 3.36 X10^3/ul (0.83-4.51); Lymphocyte % 20.8 % (19-41); Mean Corp Hgb Conc 34.2 g/dL (32-36); Mean Corpuscular Hgb 32.9 pg (27.0-32.0); Mean Corpuscular Volume 96.1 fL (81-99); Mean Platelet Vol. 9.2 fl (6.2-12.0); Monocyte# 0.59 X10^3/uL; Monocyte% 3.7 % (0-10); NRBC Flagged by Analyzer 0.1 % (0-5); Neutrophil % 74.4 % (47-70); Platelet Count 375 K/mm3 (150-450); RBC Distribution Width CV 16.4 % (11.6-14.6); RBC Distribution Width SD 57.2 fl (35.1-43.9); Red Blood Count 4.35 M/mm3 (4.2-5.4); White Blood Count 16.1 K/mm3 (4.4-11.0)
[2024-12-26 15:30] LABS: Microalbumin,Random Urine 24.5 mg/L (NO RANGE EST.); Microalbumin:Creatinine Ratio 117.8 mg/g CRE
[2024-12-26 16:04] LABS: Erythrocyte Sedimentation Rate 34 mm/hr (0-30)
[2024-12-26 17:47] LABS: PTHIN 44 pg/mL (11-61)
[2024-12-26 21:06] LABS: ALB/GLOB Ratio 1.1 RATIO (0.9-2.4); AST(SGOT) 20 U/L (<=31); Alanine Aminotransfer ALT/SGPT 8 U/L (<=34); Albumin, Serum 3.6 g/dL (3.5-5.0); Alkaline Phosphatase 74 U/L (35-104); Anion Gap 16 (5-15); BUN 17 mg/dL (4-19); BUN/Creat Ratio 9.5 RATIO (10-20); Calcium,Total 8.7 mg/dL (7.6-11.0); Carbon Dioxide 22.6 mmol/L (21.0-32.0); Chloride 101 mmol/L (98-108); Creatinine, Serum 1.76 mg/dL (0.70-1.20); EST Glomerular Filtration Rate 34 (>60); Globulin 3.1 g/dL (2.2-4.2); Glucose 75 mg/dL (70-99); Potassium 4.3 mmol/L (3.3-5.1); Protein, Total 6.7 g/dL (5.9-8.4); Sodium Level 139 mmol/L (133-145); Thyroid Stim Hormone (TSH) 0.048 uIU/mL (0.300-4.200); Total Bilirubin 0.43 mg/dL (0.00-1.30); Uric Acid 9.8 mg/dL (2.6-6.0)
[2024-12-30 13:07] LABS: ANTINUCLEAR ANTIBODIES DIRECT Negative (Negative)
[2024-12-30 17:07] LABS: PROEL- A/G Ratio 0.9 (0.7-1.7); PROEL- Albumin 2.9 g/dL (2.9-4.4); PROEL- Alpha-1 Globulin 0.3 g/dL (0.0-0.4); PROEL- Beta Globulin 1.1 g/dL (0.7-1.3); PROEL- Gamma Globulin 0.8 g/dL (0.4-1.8); PROEL- Globulin, Total 3.2 g/dL (2.2-3.9); PROEL- TOTAL PROTEIN 6.1 g/dL (6.0-8.5); PROEL-M-Spike Comment: g/dL (Not Observed)
== END | disposition home or self-care (01) ==
LOC: MFPLAB 12:05
PROVIDERS: PCP Family Medicine; Referring Provider Family Medicine; Visit Provider Family Medicine
DX: N18.31 Chronic kidney disease, stage 3a (principal)
CPT/HCPCS: 36415; 80053; 82043; 82570; 83970; 84165; 84443; 84550; 85025; 85652; 86038; 86140

== ENCOUNTER → 2025-01-21 | Outpatient (CLI) | payer MEDICARE, MEDICAID, SELFPAY ==
[2025-01-21 15:13] LABS: Absolute Lymphocyte Count 3.55 X10^3/uL (0.83-4.51); Absolute Neutrophil Count 13.7 X10^3/uL (2.0-7.7); Basophil# 0.06 X10^3/uL; Basophil% 0.3 % (0-1); Eosinophil# 0.03 X10^3/uL; Eosinophils% 0.2 % (0-5); Hematocrit 42.5 % (37-47); Lymphocyte # 3.55 X10^3/ul (0.83-4.51); Lymphocyte % 19.5 % (19-41); Mean Corp Hgb Conc 35.3 g/dL (32-36); Mean Corpuscular Hgb 34.6 pg (27.0-32.0); Mean Corpuscular Volume 97.9 fL (81-99); Mean Platelet Vol. 8.7 fl (6.2-12.0); Monocyte# 0.77 X10^3/uL; Monocyte% 4.2 % (0-10); NRBC Flagged by Analyzer 0 % (0-5); Neutrophil # 13.65 X10^3/uL (2.7-7.7); Neutrophil % 75.2 % (47-70); Platelet Count 432 K/mm3 (150-450); RBC Distribution Width CV 17.8 % (11.6-14.6); RBC Distribution Width SD 61.8 fl (35.1-43.9); Red Blood Count 4.34 M/mm3 (4.2-5.4); White Blood Count 18.2 K/mm3 (4.4-11.0)
[2025-01-21 15:18] LABS: PTHIN 59 pg/mL (11-61)
[2025-01-21 15:27] LABS: AST(SGOT) 23 U/L (<=31); Alanine Aminotransfer ALT/SGPT 7 U/L (<=34); Albumin, Serum 3.6 g/dL (3.5-5.0); Alkaline Phosphatase 133 U/L (35-104); Anion Gap 15 (5-15); BUN 18 mg/dL (4-19); BUN/Creat Ratio 10.6 RATIO (10-20); CPK Total, Creatine Kinase 50 U/L (24-195); Calcium,Total 9.2 mg/dL (7.6-11.0); Carbon Dioxide 23.1 mmol/L (21.0-32.0); Chloride 98 mmol/L (98-108); EST Glomerular Filtration Rate 35 (>60); Globulin 3.5 g/dL (2.2-4.2); Glucose 101 mg/dL (70-99); Potassium 4.1 mmol/L (3.3-5.1); Protein, Total 7.1 g/dL (5.9-8.4); Sodium Level 135 mmol/L (133-145); Total Bilirubin 0.73 mg/dL (0.00-1.30)
[2025-01-21 15:36] LABS: Erythrocyte Sedimentation Rate 25 mm/hr (0-30)
== END | disposition home or self-care (01) ==
PROVIDERS: PCP Family Medicine; Referring Provider Family Medicine; Visit Provider Family Medicine
DX: R70.0 Elevated erythrocyte sedimentation rate (principal); R00.0 Tachycardia, unspecified
CPT/HCPCS: 36415; 80053; 82550; 83970; 85025; 85652; 86038; 86140

== ENCOUNTER → 2025-01-22 | Outpatient (CLI) | payer MEDICARE, MEDICAID, SELFPAY ==
--- NOTE | 2025-01-22 12:05 | CT_ITS ---
PROCEDURE: SPINE LUMBAR WITH CONTRAST REASON FOR EXAM: STAT: ACUTE LOWER LEG WEAK S/P EPID INJS. CONCERN DISCITIS OR C TECHNIQUE: Lumbar spine CT was performed with contrast. Multiplanar reformats were generated. CONTRAST: Isovue-300 VOLUME: 75mL One or more dose reduction techniques were used (e.g., Automated exposure control, adjustment of the mA and/or kV according to patient size, use of iterative reconstruction technique). RADIATION DOSE SUMMARY: CTDlvol: 14.78 mGy DLP: 507.18 mGycm COMPARISON: None. FINDINGS: For the purposes of this report, the last well-formed disc space will be assigned L5-S1. Vertebral body heights are preserved. Trace likely degenerative anterolisthesis at L4-L5. Mild likely degenerative grade 1 retrolisthesis at L5-S1. Mild RIGHT lateral listhesis of L5 relative to L4 and S1 with slight resultant focal dextroscoliosis. Level by level findings as below: Notably suboptimally delineated by CT: L1-2: Posterior central disc/osteophyte complex. At least mild/moderate focal spinal canal stenosis. Mild facet arthropathy. No significant foraminal stenosis evident by CT. L2-3: Diffuse disc bulging. Facet arthropathy with bony hypertrophic changes. At least moderate/severe focal spinal canal stenosis. At least mild RIGHT foraminal stenosis, suboptimally delineated by CT. L3-4: Diffuse disc bulging. Facet arthropathy with bony hypertrophic changes. At least moderate spinal canal stenosis. No significant foraminal stenosis evident by CT. L4-5: Trace anterolisthesis with as above with disc uncovering. Diffuse disc bulging with disc/osteophyte complex which is greatest in the RIGHT lateral and foraminal regions. Facet arthropathy. At least moderate/severe spinal canal stenosis. At least mild/moderate LEFT and moderate RIGHT foraminal stenosis, suboptimally delineated by CT. L5-S1: Grade 1 retrolisthesis with disc uncovering as above. Diffuse disc bulging. LEFT foraminal and lateral predominant disc/osteophyte complex. Facet arthropathy. At least moderate/severe LEFT foraminal stenosis. At least moderate RIGHT foraminal stenosis. Other: No significant endplate destructive changes or convincing paraspinal soft tissue abnormality. Nonobstructing intrarenal calculi bilaterally. 1.6 cm indeterminate LEFT adrenal nodule. 1.3 cm indeterminate RIGHT adrenal nodule versus nodular adrenal thickening/hyperplasia. Top-normal caliber of the CBD. Atherosclerosis. Presumably degenerative sclerosis along the anterior RIGHT sacrum abutting the SI joint. CT/Spine Lumbar WITH Contrast IMPRESSION: 1. No convincing acute abnormality within limitations of CT. Note that the epi dural space is poorly evaluated by CT. Early discitis/osteomyelitis may additionally be occult by CT. 2. Multilevel spondylosis as above, suboptimally delineated by CT. Spinal shanelle l and foraminal stenoses up to at least moderate/severe. 3. Indeterminate adrenal nodules versus nodular adrenal thickening/hyperplasia, up to 1.6 cm on the LEFT. if there is no history of malignancy, consider follow-up adrenal protocol CT in 12 months per ACR pura mmendations. If there is history of known malignancy, this should be performed more expeditiously on an outpatient basis. 4. Additional description as above. Reading Location: [id number]
== END | disposition home or self-care (01) ==
LOC: CT 11:48
PROVIDERS: PCP Family Medicine; Referring Provider Family Medicine; Visit Provider Family Medicine
DX: R29.898 Other symptoms and signs involving the musculoskeletal system (principal)
CPT/HCPCS: 72132; Q9967

== ENCOUNTER 2025-02-06 11:19 | Inpatient (IN) | payer MEDICARE, MEDICAID, SELFPAY ==
[2025-02-06] VITALS (10 sets, daily range): BP systolic 91–127; BP diastolic 61–95; PULSE 62–106; RESP 12–18; TEMP 36.6–37.2; O2SAT 88–98; BMI 23.6; BMI 23.5
--- NOTE | 2025-02-06 11:23 | RAD_ITS ---
PROCEDURE: CHEST PA AND LATERAL 02/06/2025 REASON FOR EXAM: CHEST PAIN TECHNIQUE: Frontal and lateral views of the chest. COMPARISON: Prior study dated January 29, 2018. FINDINGS: Hardware: EKG electrodes are seen. Heart: The heart size is normal. Mediastinum: The mediastinal contour is unremarkable. Lungs: The lungs are clear. Bones: The bones are unremarkable. RAD/Chest PA and Lateral IMPRESSION: NEGATIVE CHEST Reading Location: [place] [id number]
--- NOTE | 2025-02-06 11:30 | EX.ED.DYSGE1 ---
HPI History of Present Illness Chief Complaint: Syncope Narrative Narrative: Patient is a 54-year-old female with past medical history of COPD, heart failure, hypothyroidism, GERD, diabetes, asthma, IBS who presented to the emergency department via EMS from her primary care appointment with a chief complaint of near syncope. According to patient's primary care physician who called in and I discussed with them they state that she was having a checkup with them and noted that she had a near syncopal episode but states that she did not pass out stated that she felt lightheaded therefore they sent her here for further evaluation management. They noted that she does have unexplained weight loss and notes that she did vomit while in the office as well. Patient herself when she arrived here has no specific complaints at this point in time. [facility] Medical History Gastroparesis CKD (chronic kidney disease) stage 3, GFR 30-59 ml/min Parotid mass Hypothyroidism Diastolic heart failure Gastric paresis GERD (gastroesophageal reflux disease) Thyroid disease Kidney stones IBS (irritable bowel syndrome) Migraines Back problem Asthma Arthritis Multiple allergies Sleep apnea in adult Chronic pain COPD (chronic obstructive pulmonary disease) Diabetes Home Medications ?Medication ?Instructions ?Recorded ?Last Taken ?Type atorvastatin 40 mg tablet 40 mg PO QHS cholesterol 03/05/18 02/04/25 History cetirizine 10 mg capsule 10 mg PO DAILY allergies 03/05/18 02/05/25 History duloxetine 60 mg capsule,delayed 60 mg PO DAILY anxiety 03/05/18 02/05/25 History release febuxostat 80 mg tablet 80 mg PO DAILY decrease uric acid 03/05/18 02/05/25 History lidocaine 5 % topical patch 1 - 2 patch topical QHS pain 03/05/18 02/05/25 History montelukast 10 mg tablet 10 mg PO DAILY allergies 03/05/18 02/05/25 History potassium citrate 15 mEq (1,620 15 meq PO DAILY PRN with lasix 03/05/18 Unknown History mg) tablet,extended release sodium chloride 0.65 % nasal spray 1 spray NS Q2H PRN Allergies 03/05/18 Unknown History aerosol buprenorphine 20 mcg/hour weekly 20 mcg transdermal SA pain 10/11/18 06/20/19 History transdermal patch (Butrans) irbesartan 75 mg tablet 75 mg PO QHS KIDNEYS 07/06/19 02/04/25 History aspirin 81 mg tablet,delayed 81 mg PO DAILY 02/06/25 02/05/25 History release cholecalciferol (vitamin D3) 50 50 mcg PO DAILY 02/06/25 02/05/25 History mcg (2,000 unit) capsule (Vitamin D3) erenumab-aooe 140 mg/mL 140 mg subcut QMONTH 02/06/25 12/24/24 History subcutaneous auto-injector (Aimovig Autoinjector) fluoxetine 20 mg tablet 20 mg PO DAILY 02/06/25 02/05/25 History fluticasone fur. 100 mcg-umeclid 1 ea inhalation DAILY 02/06/25 02/05/25 History 62.5 mcg-vilant 25 mcg inhalat.powder (Trelegy Ellipta) furosemide 20 mg tablet 20 mg PO DAILY PRN swelling 02/06/25 Unknown History gabapentin 800 mg tablet 800 mg PO TID 02/06/25 02/05/25 History icosapent ethyl 1 gram capsule 2 g PO BID 02/06/25 02/05/25 History (Vascepa) levothyroxine 75 mcg tablet 75 mcg PO DAILY 02/06/25 02/05/25 History (Synthroid) metoprolol succinate 25 mg 25 mg PO DAILY 02/06/25 02/05/25 History tablet,extended release 24 hr omeprazole 40 mg capsule,delayed 40 mg PO DAILY 02/06/25 02/05/25 History release tirzepatide 12.5 mg/0.5 mL 12.5 mg subcut TH 02/06/25 Unknown History subcutaneous pen injector (Mounjaro) Allergy/AdvReac Type Severity Reaction Status Date / Time albuterol Allergy Laryngospas Verified 02/06/25 11:29 ms codeine Allergy Rash Verified 02/06/25 11:29 nabumetone (From Relafen) Allergy Rash Verified 02/06/25 11:29 Sulfa (Sulfonamide Allergy Rash Verified 02/06/25 11:29 Antibiotics) pregabalin (From Lyrica) AdvReac confusion/d Verified 02/06/25 11:29 elirium Family History Mother Cervical cancer Grandmother Arthritis Diabetes Grandfather Bleeding disorder Bowel disease Heart disease Aunt Throat cancer Father Diabetes Surgical History Cervical cancer Carpal tunnel syndrome Previous section gallbladder removal Social History Smoking Status: Current some day smoker tobacco type: cigarettes alcohol intake: never substance use type: does not use additional social history: DOES USE ASPIRIN DOES NOT USE IBUPROFEN ROS ROS ED ROS Narrative Constitutional: Denies fevers, chills, headaches, lightness, dizziness Eyes: Denies change in vision double vision blurry vision Cardiovascular: Denies chest pain or palpitation Respiratory: Denies coughing wheezing shortness of breath Abdomen: Denies abdominal pain nausea vomit diarrhea. Patient states that her stools been darker than normal for herself denies any blood thinning medications : Denies urinary symptoms Neurological: Denies numbness, weakness, tingling Musculoskeletal: Denies back pain Skin: Denies rashes or lesions EXAM Physical Exam Narrative Exam Narrative: General: Patient was lying in bed rest comfortably did not appear to be in acute distress Head: Atraumatic, normocephalic Eyes: PERRL bilaterally, EOMI bilateral, no conjunctival injection noted Neck: Soft, supple, trachea midline Cardiovascular: Patient tachycardic with regular rhythm no murmurs gallops rubs noted Respiratory: Patient has diffuse end expiratory wheezing noted on exam Abdomen: Soft, nondistended, nontender to palpation Rectal: Patient refused Extremities: +5/5 strength noted in the bilateral upper and lower extremities, radial pulses +2/4 in the bilateral per extremities Neurological: Patient following commands knew that she was at [facility] year is 2024 Skin: Warm, dry, intact no rashes or lesions noted Const Vital Signs: 02/06/25 11:20 02/06/25 11:24 02/06/25 11:30 Temperature 98.4 F Temperature Source Oral Pulse Rate 106 H Respiratory Rate 12 Respiratory Effort Normal Non-Labored Respiratory Pattern Normal Blood Pressure 114/83 H Blood Pressure Mean 93 Pulse Ox 88 93 Oxygen Delivery Method Room Air Nasal Cannula Oxygen Flow Rate (L/min) 2 02/06/25 11:30 02/06/25 12:19 02/06/25 13:00 Temperature Temperature Source Pulse Rate 97 62 Respiratory Rate 15 18 Respiratory Effort Respiratory Pattern Blood Pressure 127/85 H 110/70 Blood Pressure Mean 99 83 Pulse Ox 95 98 Oxygen Delivery Method Nasal Cannula Nasal Cannula Room Air Oxygen Flow Rate (L/min) 2 2 02/06/25 14:00 02/06/25 14:16 Temperature 98.9 F Temperature Source Pulse Rate 78 78 Respiratory Rate 18 18 Respiratory Effort Respiratory Pattern Blood Pressure 122/95 H 122/95 H Blood Pressure Mean 104 104 Pulse Ox 92 92 Oxygen Delivery Method Room Air Oxygen Flow Rate (L/min) MDM MDM MDM Narrative Medical decision making narrative: Patient is a 54-year-old female who presented to the emergency department the chief complaint of near syncopal episode while in the primary care physician's office. On the differential diagnosis includes but not limited to ACS, pneumonia, viral illness, dehydration. Once workup is obtained reviewed she will be reevaluated. Patient given IV fluids. Given patient states that her stools been darker than normal I talked with her about performing rectal exam and testing her stool for blood she refused I advised that there is a chance that with her symptoms she is having a gastrointestinal bleed and if this is going on and we do not perform this test we could miss this which could ultimately lead to her she states that I do not care I do not want the test done. Patient CBC was significant for leukocytosis of 16,000 however she chronically has elevated white blood count compared to previous blood draws, hemoglobin 16.2, platelet count normal at 381. Patient sodium was 132, potassium normal at 3.8, creatinine was elevated 1.44 however she does have underlying chronic kidney disease and this does appear around her baseline. Patient troponin was 31 with a delta troponin of 25. Patient's proBNP elevated 1097, EKG reviewed showed sinus tachycardia some ST depressions noted in the lateral leads however this could be rate dependent with a rate of 106 bpm. This was compared to EKG from December 18, 2024 which is largely unchanged. Patient TSH elevated 21.9 however free T4 and T3 normal at 0.90 and 2.2 respectively. Patient's chest x-ray reviewed by myself by radiology showed no acute cardiopulmonary processes. Patient CTA of her chest showed no evidence of acute pulmonary embolism. Given the patient's near syncopal episode in the primary care physician office today, lightheadedness, elevated troponin and proBNP will discuss case with hospitalist for admission. Discussed case with hospitalist who accept the patient for admission Dr. Del Cid. Patient was notified is agreeable to plan all course concerns answered. Lab Data Labs: Laboratory Results - last 24 hr 02/06/25 02/06/25 11:05 13:07 WBC 16.9 H RBC 4.65 Hgb 16.2 H Hct 43.7 MCV 94.0 MCH 34.8 H MCHC 37.1 H RDW Std Deviation 59.1 H RDW Coeff of Cipriano 17.4 H Plt Count 381 MPV 9.8 Immature Gran % (Auto) 1.100 H Neut % (Auto) 75.6 H Lymph % (Auto) 15.8 L [place] % (Auto) 6.9 Eos % (Auto) 0.2 Baso % (Auto) 0.4 Absolute Neuts (auto) 12.8 H Absolute Lymphs (auto) 2.68 Nucleated RBC % 0.2 Sodium 132 L Potassium 3.8 Chloride 95 L Carbon Dioxide 19.5 L Anion Gap 18 H BUN 28 H Creatinine 1.44 H Estim Creat Clear Calc 39.72 L Est GFR (MDRD) Non-Af 43 L BUN/Creatinine Ratio 19.7 Glucose 130 H Calcium 9.7 Troponin T High Sens 31 H Troponin T Hi Sens 2 Hr 25 H NT pro BNP II 1097 H TSH 21.900 H Free T4 0.90 Free T3 pg/dL 2.2 Radiography Diagnostic Testing: Clinical Impression(s) from Imaging Studies Chest X-Ray 02/06/25 11:23 IMPRESSION: NEGATIVE CHEST Reading Location: [facility]- Chest CTA 02/06/25 12:08 IMPRESSION: NORMAL CHEST CTA. NO EVIDENCE OF ACUTE PULMONARY EMBOLISM. Reading Location: [facility]-IR-1 Discharge Plan Triage Chief Complaint: Syncope ED Provider: Carlos Manuel Simmons Dx/Rx/DC Orders Clinical Impression: Near syncope Prescriptions: No Action montelukast 10 MG tablet 10 mg PO DAILY Patient Comments: PT MAY TAKE AT NIGHT, NOT SURE duloxetine 60 MG capsule,delayed release(DR/EC) 60 mg PO DAILY febuxostat 80 MG tablet 80 mg PO DAILY potassium citrate 15 MEQ tablet extended release 15 meq PO DAILY PRN (Reason: with lasix) Patient Comments: take with lasix as needed cetirizine 10 MG capsule 10 mg PO DAILY atorvastatin 40 MG tablet 40 mg PO QHS lidocaine 1 PATCH patch 1 - 2 patch topical QHS Patient Comments: Rx Instructions: on 12 hours, off 12 hours. PT USES 1-2 PATCHES sodium chloride 30 ML aerosol,spray 1 spray NS Q2H PRN (Reason: Allergies) buprenorphine [Butrans] 1 EACH patch weekly 20 mcg transdermal SA Rx Instructions: WEARS FOR 7 DAYS irbesartan 75 MG tablet 75 mg PO QHS Trelegy Ellipta 100-62.5-25 mcg blister with device 1 ea inhalation DAILY gabapentin 800 mg tablet 800 mg PO TID Mounjaro 12.5 mg/0.5 mL pen injector 12.5 mg subcut TH Patient Comments: PT HASNT TAKEN IN A COUPLE WEEKS, MED ON BACK ORDER omeprazole 40 mg capsule,delayed release(DR/EC) 40 mg PO DAILY aspirin 81 mg tablet,delayed release (DR/EC) 81 mg PO DAILY furosemide 20 mg tablet 20 mg PO DAILY PRN (Reason: swelling) Patient Comments: TAKE WITH POTASSIUM cholecalciferol (vitamin D3) [Vitamin D3] 50 mcg (2,000 unit) capsule 50 mcg PO DAILY Aimovig Autoinjector 140 mg/mL auto-injector 140 mg subcut QMONTH levothyroxine [Synthroid] 75 mcg tablet 75 mcg PO DAILY Patient Comments: PT MUST TAKE NAME BRAND SYNTHROID fluoxetine 20 mg tablet 20 mg PO DAILY metoprolol succinate 25 mg tablet extended release 24 hr 25 mg PO DAILY icosapent ethyl [Vascepa] 1 gram capsule 2 g PO BID Primary Care Provider: Aron Palumbo Referrals: Aron Palumbo MD [Primary Care Provider] - Print Language: Lebanese Disposition Disposition: Acute Care Hospital [facility]
[2025-02-06] MEDS: 0.9% Normal Saline (1000mL) 1,000 ML 999 ML IV (11:32)
[2025-02-06 11:39] LABS: Absolute Lymphocyte Count 2.68 X10^3/uL (0.83-4.51); Absolute Neutrophil Count 12.8 X10^3/uL (2.0-7.7); Basophil# 0.06 X10^3/uL; Basophil% 0.4 % (0-1); Eosinophil# 0.03 X10^3/uL; Eosinophils% 0.2 % (0-5); Hematocrit 43.7 % (37-47); Hemoglobin 16.2 g/dL (12.0-15.0); Lymphocyte # 2.68 X10^3/ul (0.83-4.51); Lymphocyte % 15.8 % (19-41); Mean Corp Hgb Conc 37.1 g/dL (32-36); Mean Corpuscular Hgb 34.8 pg (27.0-32.0); Mean Platelet Vol. 9.8 fl (6.2-12.0); Monocyte# 1.17 X10^3/uL; Monocyte% 6.9 % (0-10); NRBC Flagged by Analyzer 0.2 % (0-5); Neutrophil % 75.6 % (47-70); Platelet Count 381 K/mm3 (150-450); RBC Distribution Width CV 17.4 % (11.6-14.6); RBC Distribution Width SD 59.1 fl (35.1-43.9); Red Blood Count 4.65 M/mm3 (4.2-5.4); White Blood Count 16.9 K/mm3 (4.4-11.0)
[2025-02-06 11:58] LABS: Anion Gap 18 (5-15); BUN 28 mg/dL (4-19); BUN/Creat Ratio 19.7 RATIO (10-20); Calcium,Total 9.7 mg/dL (7.6-11.0); Carbon Dioxide 19.5 mmol/L (21.0-32.0); Chloride 95 mmol/L (98-108); Creatinine, Serum 1.44 mg/dL (0.70-1.20); EST Glomerular Filtration Rate 43 (>60); Estimated Creatinine Clearance 39.72 ml/min (50-250); Glucose 130 mg/dL (70-99); Potassium 3.8 mmol/L (3.3-5.1); Sodium Level 132 mmol/L (133-145); Troponin T High Sensitivity 31 ng/L (<=14)
[2025-02-06] MEDS: Ondansetron 4 MG/2 ML Vial IV (11:58)
[2025-02-06] MEDS: predniSONE 20 MG Tablet 60 MG PO (11:59)
--- NOTE | 2025-02-06 12:08 | CT_ITS ---
PROCEDURE: CTA CHEST W/WO CONTRAST 02/06/2025 REASON FOR EXAM: NEAR SYNCOPE, SOB TECHNIQUE: CTA axial imaging of the chest with intravenous contrast. Coronal and Sagittal reconstruction series were provided. 3D, 3D post processing, 3D reconstructions, Maximum intensity projection (MIPs) Volume rendering and Shaded surface rendering was provided. PATIENT PREPARATION: Per protocol One or more dose reduction techniques were used (e.g., Automated exposure control, adjustment of the mA and/or kV according to patient size, use of iterative reconstruction technique). CONTRAST: Isovue-300 VOLUME: 100 mL Gauge IV RADIATION DOSE SUMMARY: CTDlvol: 15.5 mGy DLP: 378.28 mGycm COMPARISON: Prior chest radiograph done earlier in the day. FINDINGS: Hardware: EKG electrodes. Lymph nodes: No mediastinal or hilar lymph nodes are seen. Heart: Unremarkable Thoracic Aorta: No thoracic aortic aneurysm or dissection. Pulmonary Vessels: No filling defects are seen. Most Proximal Level of Embolus (if embolus present): Lungs and Airways: Mild dependent atelectasis. Pleura: No pleural effusion. No pneumothorax. Upper Abdomen: Status post cholecystectomy. Diffuse fatty infiltration of the liver. Hyperplasia of the adrenal glands. Bones: Bone windows are unremarkable. CT/CTA Chest W/WO Contrast IMPRESSION: NORMAL CHEST CTA. NO EVIDENCE OF ACUTE PULMONARY EMBOLISM. Reading Location: [place] [id number]
[2025-02-06 12:13] LABS: Pro- Brain NATRIURETIC PEPTIDE 1097 pg/mL (<=900)
[2025-02-06 13:28] LABS: Free T3 2.2 pg/mL (2.18-3.98)
[2025-02-06 13:51] LABS: Troponin T High Sens 2 HR 25 ng/L (<=14)
--- NOTE | 2025-02-06 14:34 | PCM.HP.STD ---
HPI - General General Date of Admission: 02/06/25 Date of Service: 02/06/25 Chief Complaint: Episodes of light headedness HPI Narrative GLEY LACKEY, is a 54-year-old female history of hypothyroidism, COPD, GERD, diabetes, IBS, depression, chronic pain, hypertension who presented to ED 02/06/2025 with a chief complaint of near syncope. Reportedly she was at her primary care physician's office and having a checkup and then had near syncopal episode where she felt lightheaded so they sent her to the ED for evaluation. Patient notes unexplained weight loss and that she did vomit while in the office as well. On arrival patient afebrile, heart rate 106 with a blood pressure of 114/83, patient initially 88% on room air which improved to mid 90s with 2 L nasal cannula and prednisone. Patient noted to have a white blood cell count of 16.9 with a hemoglobin of 16.2, patient with troponin of 31 that down trended to 25 and proBNP of 1097. TSH of 21 with a free T3 of 2.2 and free T4 of 0.90. Sodium 132 with a creatinine of 1.44. Patient had a CTA of the chest with no acute PE or acute process. Due to the near syncopal episode of unclear etiology hospitalist contacted for admission. Patient evaluated at bedside. She reports that she has been having these intermittent near syncopal episodes over the past couple of weeks and sometimes are while she is up and moving around and does think that maybe they have happened when she has been sitting before as well. Endorses that today she got up from the waiting room and [place] and stepped on the scale and that is when she felt the symptoms. Notes that she has been trying to take her medicines for the past couple of weeks but vomits them back up so has not really been able to take any of them and has not been using her Trelegy inhaler either because of all of this. Denies any abdominal pain or diarrhea, not necessarily continuously nauseous however has not been eating and drinking well due to the intermittent vomiting. Patient possibly more short of breath over the past couple weeks with more of a cough since she has not been using her inhalers, denies any chest pain [facility] Medical History Gastroparesis CKD (chronic kidney disease) stage 3, GFR 30-59 ml/min Parotid mass Hypothyroidism Diastolic heart failure Gastric paresis GERD (gastroesophageal reflux disease) Thyroid disease Kidney stones IBS (irritable bowel syndrome) Migraines Back problem Asthma Arthritis Multiple allergies Sleep apnea in adult Chronic pain COPD (chronic obstructive pulmonary disease) Diabetes Home Medications ?Medication ?Instructions ?Recorded ?Last Taken ?Type atorvastatin 40 mg tablet 40 mg PO QHS cholesterol 03/05/18 02/04/25 History cetirizine 10 mg capsule 10 mg PO DAILY allergies 03/05/18 02/05/25 History duloxetine 60 mg capsule,delayed 60 mg PO DAILY anxiety 03/05/18 02/05/25 History release febuxostat 80 mg tablet 80 mg PO DAILY decrease uric acid 03/05/18 02/05/25 History lidocaine 5 % topical patch 1 - 2 patch topical QHS pain 03/05/18 02/05/25 History montelukast 10 mg tablet 10 mg PO DAILY allergies 03/05/18 02/05/25 History potassium citrate 15 mEq (1,620 15 meq PO DAILY PRN with lasix 03/05/18 Unknown History mg) tablet,extended release sodium chloride 0.65 % nasal spray 1 spray NS Q2H PRN Allergies 03/05/18 Unknown History aerosol buprenorphine 20 mcg/hour weekly 20 mcg transdermal SA pain 10/11/18 06/20/19 History transdermal patch (Butrans) irbesartan 75 mg tablet 75 mg PO QHS KIDNEYS 07/06/19 02/04/25 History aspirin 81 mg tablet,delayed 81 mg PO DAILY 02/06/25 02/05/25 History release cholecalciferol (vitamin D3) 50 50 mcg PO DAILY 02/06/25 02/05/25 History mcg (2,000 unit) capsule (Vitamin D3) erenumab-aooe 140 mg/mL 140 mg subcut QMONTH 02/06/25 12/24/24 History subcutaneous auto-injector (Aimovig Autoinjector) fluoxetine 20 mg tablet 20 mg PO DAILY 02/06/25 02/05/25 History fluticasone fur. 100 mcg-umeclid 1 ea inhalation DAILY 02/06/25 02/05/25 History 62.5 mcg-vilant 25 mcg inhalat.powder (Trelegy Ellipta) furosemide 20 mg tablet 20 mg PO DAILY PRN swelling 02/06/25 Unknown History gabapentin 800 mg tablet 800 mg PO TID 02/06/25 02/05/25 History icosapent ethyl 1 gram capsule 2 g PO BID 02/06/25 02/05/25 History (Vascepa) levothyroxine 75 mcg tablet 75 mcg PO DAILY 02/06/25 02/05/25 History (Synthroid) metoprolol succinate 25 mg 25 mg PO DAILY 02/06/25 02/05/25 History tablet,extended release 24 hr omeprazole 40 mg capsule,delayed 40 mg PO DAILY 02/06/25 02/05/25 History release tirzepatide 12.5 mg/0.5 mL 12.5 mg subcut TH 02/06/25 Unknown History subcutaneous pen injector (Mounjaro) Allergy/AdvReac Type Severity Reaction Status Date / Time albuterol Allergy Laryngospas Verified 02/06/25 11:29 ms codeine Allergy Rash Verified 02/06/25 11:29 nabumetone (From Relafen) Allergy Rash Verified 02/06/25 11:29 Sulfa (Sulfonamide Allergy Rash Verified 02/06/25 11:29 Antibiotics) pregabalin (From Lyrica) AdvReac confusion/d Verified 02/06/25 11:29 elirium Family History Mother Cervical cancer Grandmother Arthritis Diabetes Grandfather Bleeding disorder Bowel disease Heart disease Aunt Throat cancer Father Diabetes Surgical History Cervical cancer Carpal tunnel syndrome Previous section gallbladder removal Social History Smoking Status: Current some day smoker tobacco type: cigarettes alcohol intake: never substance use type: does not use additional social history: DOES USE ASPIRIN DOES NOT USE IBUPROFEN ROS ROS Narrative General: Denies fever/chills HENT: Denies headache, denies stuffy nose, denies sore throat EYES: Denies changes in vision Resp: Does have cough and shortness of breath, does not feel it is acutely changed but may be worse over the past couple weeks and she has not been using her inhalers Cardiac: Denies chest pain GI: Denies abdominal pain, denies changes in bowel, has had some nausea and difficulty keeping her medications down as well as poor p.o. intake : Denies changes in urination Extremity: Denies swelling MSK: Denies weakness Neuro: Denies any numbness/tingling Heme: Denies any bleeding or bruising Skin: Denies rashes Psychiatric: No complaints voiced Vital Signs Vital Signs Vital Signs: 02/06/25 11:20 02/06/25 11:24 02/06/25 11:30 Temperature 98.4 F Temperature Source Oral Pulse Rate 106 H Respiratory Rate 12 Respiratory Effort Normal Non-Labored Respiratory Pattern Normal Blood Pressure 114/83 H Blood Pressure Mean 93 Pulse Ox 88 93 Oxygen Delivery Method Room Air Nasal Cannula Oxygen Flow Rate (L/min) 2 02/06/25 11:30 02/06/25 12:19 02/06/25 13:00 Temperature Temperature Source Pulse Rate 97 62 Respiratory Rate 15 18 Respiratory Effort Respiratory Pattern Blood Pressure 127/85 H 110/70 Blood Pressure Mean 99 83 Pulse Ox 95 98 Oxygen Delivery Method Nasal Cannula Nasal Cannula Room Air Oxygen Flow Rate (L/min) 2 2 02/06/25 14:00 02/06/25 14:16 Temperature 98.9 F Temperature Source Pulse Rate 78 78 Respiratory Rate 18 18 Respiratory Effort Respiratory Pattern Blood Pressure 122/95 H 122/95 H Blood Pressure Mean 104 104 Pulse Ox 92 92 Oxygen Delivery Method Room Air Oxygen Flow Rate (L/min) Weight Weight: 64.4 kg Body Mass Index (BMI) 23.6 Physical Exam Narrative General: Alert, oriented, no apparent distress HEENT: Atraumatic, normocephalic Eyes: Anicteric, normal conjunctiva, extraocular movements grossly intact Neck: Supple Respiratory: Normal respiratory effort but diffusely wheezing Cardiovascular: Regular rate and rhythm GI: Soft, nontender, nondistended Extremities: No edema Musculoskeletal: Moving all extremities Neuro: No overt focal neurological deficits Skin: No rashes appreciated Psych: Cooperative Results Lab / Micro Data 02/06/25 11:05 02/06/25 11:05 Labs: Laboratory Results - last 24 hr 02/06/25 11:05: WBC 16.9 H, RBC 4.65, Hgb 16.2 H, Hct 43.7, MCV 94.0, MCH 34.8 H, MCHC 37.1 H, RDW Std Deviation 59.1 H, RDW Coeff of Cipriano 17.4 H, Plt Count 381, MPV 9.8, Immature Gran % (Auto) 1.100 H, Neut % (Auto) 75.6 H, Lymph % (Auto) 15.8 L, [place] % (Auto) 6.9, Eos % (Auto) 0.2, Baso % (Auto) 0.4, Absolute Neuts (auto) 12.8 H, Absolute Lymphs (auto) 2.68, Nucleated RBC % 0.2, Sodium 132 L, Potassium 3.8, Chloride 95 L, Carbon Dioxide 19.5 L, Anion Gap 18 H, BUN 28 H, Creatinine 1.44 H, Estim Creat Clear Calc 39.72 L, Est GFR (MDRD) Non-Af 43 L, BUN/Creatinine Ratio 19.7, Glucose 130 H, Calcium 9.7, Troponin T High Sens 31 H, NT pro BNP II 1097 H, TSH 21.900 H, Free T4 0.90, Free T3 pg/dL 2.2 02/06/25 13:07: Troponin T Hi Sens 2 Hr 25 H Micro: Microbiology 02/06/25 11:35 Mucosa - Nose SARS-CoV-2, Influenza & RSV (PCR) - Final Imaging Radiology Impression Chest X-Ray 02/06/25 11:23 IMPRESSION: NEGATIVE CHEST Reading Location: [facility]--1 Chest CTA 02/06/25 12:08 IMPRESSION: NORMAL CHEST CTA. NO EVIDENCE OF ACUTE PULMONARY EMBOLISM. Reading Location: [facility]-IR-1 Assessment & Plan Assessment/Plan (1) Near syncope: PLAN: Plan #Near syncopal episode -admit to telemetry -EGK normal sinus rhythm with a rate of 106, similar to EKG from December 18, 2024 -orthostatic vital signs -will obtain echo -Will obtain carotid duplex - Suspect that this is multifactorial, patient has not been able to take her medications due to nausea, also has had very poor p.o. intake over the past couple of weeks, also pulse ox was only 88% on room air at rest on arrival also patient has not been able to use her inhalers so she may also be becoming hypoxic intermittently causing or contributing to her symptoms - Resume home triple inhaled therapy - IV fluids as below # Hypoxia in the setting of COPD - Suspect due to noncompliance as she has not been able to use her Trelegy, patient was 88% at rest on room air and is diffusely wheezing and has cough -Resume home triple therapy - Incentive spirometer - May need to consider ambulatory pulse ox before discharge # Nausea and vomiting -Will check KUB -Denies any abdominal pain or diarrhea -Will monitor intake and output, daily weights -IV fluids -Antiemetics and supportive care -Check UDS and UA #Hypothyroidism -Patient's free T4 is on the low end of normal and TSH is significantly elevated at 21.9 however suspect that this is due to patient not being able to tolerate her medications, will resume here, if this were to remain elevated even though patient compliant would need further adjustments # Minimally elevated troponin -Initial troponin 31 and down trended to 25 -No chest pain reported -Very possibly due to hypoxia, patient 88% at rest on presentation and she had gotten up and been walking at her primary care physician's office which may have decreased it further -Obtain echocardiogram # CKD stage III b -Appears to be at baseline -Avoid nephrotoxic agents -Daily BMPs #Hypertension - Hold irbesartan given patient's symptoms and concerns for volume depletion, can resume if patient remains stable - Will resume patient's metoprolol succinate #Type 2 diabetes mellitus -Glucose checks and sliding scale insulin #GERD -Continue PPI - If patient not able to tolerate oral PPI can switch to IV as lack of her PPI may be contributing to her ongoing symptoms # Chronic white blood cell count elevation -Patient appears to have a chronically elevated white blood cell count all the way back to 2013. She has only had 1 normal value in the entire time -May need further outpatient workup if not already evaluated -Will check UA # Low bicarb, high gap -Unclear if this is true abnormality or due to lab error given recent changes - Check lactic acid - Repeat BMP - IV fluids #Chronic pain - Continue patient's home buprenorphine patch - Given patient's symptoms and difficulty tolerating medications recently will decrease gabapentin to 400 3 times daily and can up titrate to home dosing if blood pressure and patient tolerate #Tobacco use -Advise cessation -Nicotine replacement available if desired #Depression/anxiety -Continue home Cymbalta, patient listed on being on Cymbalta and fluoxetine, this is a dangerous combination due to risk of serotonin syndrome so will only continue Cymbalta at this time, will need to verify patient is really taking both, if so would securities counselor patient to only take 1 on discharge #DVT ppx: Lovenox subcu Keisha Del Cid MD Charges/Coding Visit Charges Inpatient E&M: 03892 Init Hosp L3
--- NOTE | 2025-02-06 15:28 | CDU_ITS ---
Reason For Study Reason For Study: Near syncope Rt. Velocities/BP Lt. Velocities/BP Prox CCA 46.6/14.5 cm/sec. Prox CCA 57.8/15.1 cm/sec. Mid CCA 48.5/15.4 cm/sec. Mid CCA 49.1/14.2 cm/sec. Dist CCA 43/16.8 cm/sec. Dist CCA 41.3/16.8 cm/sec. Prox ICA 33.4/14.2 cm/sec. Prox ICA 47.4/21.2 cm/sec. Mid ICA 52.6/22.9 cm/sec. Mid ICA 62.2/26.4 cm/sec. Dist ICA 57.8/23.8 cm/sec. Dist ICA 67/26.5 cm/sec. Rt. ICA/CCA = 1.19. Lt. ICA/CCA = 1.36. Prox ECA 63.1/16 cm/sec. Prox ECA 68.3/16.8 cm/sec. Rt. Vert. 31.7/12.5 cm/sec. Lt. Vert. 33/13.7 cm/sec. Right Extracranial There is intimal thickening but no significant atherosclerotic plaque noted in the right common carotid artery. There is homogeneous, smooth atherosclerotic plaque noted in the right internal carotid artery. There is intimal thickening but no significant atherosclerotic plaque noted in the right external carotid artery. Antegrade flow is noted in the right vertebral artery. Left Extracranial There is intimal thickening but no significant atherosclerotic plaque noted in the left common carotid artery. There is intimal thickening but no significant atherosclerotic plaque noted in the left internal carotid artery. There is intimal thickening but no significant atherosclerotic plaque noted in the left external carotid artery. Antegrade flow is noted in the left vertebral artery. Procedure Carotid Duplex 16414. This is a Carotid Duplex examination using B-mode, color flow and specral Doppler. Exam performed portable in patient room. VL/Carotid Duplex Ultrasound Interpretation Summary Mild (<50%) stenosis right extracranial internal carotid. No significant athero sclerotic plaque or stenosis noted in the left internal carotid artery. Flow within the vertebral arteries is antegrade b ilaterally. Ordering Physician: Keisha Del Cid Referring Physician: Aron Palumbo MD Performed By: Elma Castellanos RVT
--- NOTE | 2025-02-06 15:28 | ECHOD_ITS ---
Reason For Study Reason For Study: SYNCOPE/NEAR SYNCOPE Procedure This was a 2D Doppler, Color Flow transthoracic echocardiogram. The study was technically difficult. Exam performed portable in patient room. Left Ventricle Normal size and thickness. The LV systolic function is normal. EF is 65 %. No evidence for diastolic dysfunction. Right Ventricle Normal right ventricle. Atria The left and right atria are normal. Mitral Valve Trivial mitral valve insufficiency. Tricuspid Valve Normal tricuspid valve. Aortic Valve The aortic valve is not well visualized in the short axis view. There is no aortic stenosis. No aortic valve insufficiency. Pulmonic Valve The pulmonic valve is not well visualized. Great Vessels Normal sized aortic root. Pericardium/Pleural No pericardial effusion. MMode/2D Measurements & Calculations LVIDd: 3.2 cm IVSd: 0.73 cm Ao root diam: 3.0 cm LVIDs: 2.1 cm LVPWd: 0.85 cm RVDd: 2.2 cm FS: 34.9 % LAV(MOD-bp): 13.8 ml LVAd ap4: 16.9 cm2 SV(MOD-sp4): 20.1 ml LAV(MOD-bp) Indexed: 8.1 ml/m2 LVLd ap4: 6.7 cm SI(MOD-sp4): 11.8 ml/m2 LAV(MOD-sp2): 14.1 ml EDV(MOD-sp4): 34.6 ml LAV(MOD-sp4): 11.9 ml EDV(sp4-el): 36.3 ml LVAs ap4: 9.6 cm2 LVLs ap4: 5.5 cm ESV(MOD-sp4): 14.5 ml ESV(sp4-el): 14.2 ml EF(MOD-sp4): 58.2 % EF(sp4-el): 61.0 % SV(sp4-el): 22.2 ml LA A4 area: 7.8 cm2 LA dimension(2D): 2.9 cm RA A4 area: 6.4 cm2 TAPSE: 2.0 cm Time Measurements MV dec time: 0.23 sec Doppler Measurements & Calculations MV E max stevie: 66.2 cm/sec Lat Peak E' Stevie: 11.2 cm/sec Med Peak E' Stevie: 8.7 cm/sec MV A max stevie: 77.0 cm/sec E/E' lat: 5.9 E/E' med: 7.6 MV E/A: 0.86 Ao V2 max: 118.6 cm/sec LV V1 max: 94.8 cm/sec PA V2 max: 105.6 cm/sec Ao max P.6 mmHg LV V1 max P.6 mmHg ECHO/Echo Complete Interpretation Summary The study was technically difficult. The LV systolic function is normal. EF is 65 %. No evidence for diastolic dysfunction. Ordering Physician: Keisha Del Cid Referring Physician: PAYAL BURDICK Performed By: Crista Thapa RDCS
[2025-02-06 15:41] LABS: Troponin T High Sens 4 HR 23 ng/L (<=14)
--- NOTE | 2025-02-06 16:00 | RAD_ITS ---
PROCEDURE: ABDOMEN SINGLE VIEW (PORTABLE) 02/06/2025 REASON FOR EXAM: NAUSEA AND VOMITING TECHNIQUE: Three views of the abdomen COMPARISON: None FINDINGS: See impression RAD/Abdomen Single View (Portable) IMPRESSION: Residual contrast in the collecting systems and urinary bladder. Nonobstructiv e bowel gas pattern. No definite abnormal intra-abdominal calcifications. Degenerative changes of the spine. Visualized lung bases are clear. Reading Location: [facility]
[2025-02-06 16:01] LABS: Lactic Acid 1.3 mmol/L (0.0-2.0)
[2025-02-06 16:03] LABS: Anion Gap 16 (5-15); BUN 26 mg/dL (4-19); BUN/Creat Ratio 20.9 RATIO (10-20); Calcium,Total 8.9 mg/dL (7.6-11.0); Carbon Dioxide 19.5 mmol/L (21.0-32.0); Chloride 95 mmol/L (98-108); Creatinine, Serum 1.26 mg/dL (0.70-1.20); EST Glomerular Filtration Rate 50 (>60); Glucose 114 mg/dL (70-99); Sodium Level 131 mmol/L (133-145)
[2025-02-06] MEDS: 0.9% Normal Saline (1000mL) 1,000 ML 50 ML IV (16:34)
[2025-02-06 16:59] LABS: Bedside Glucose 121 mg/dL (74-106)
[2025-02-06 19:02] LABS: Bacteria 0 SEEN /hpf (None Seen); Color, Urine Yellow (Yellow); Glucose, Dipstick Normal (Normal); Leukocyte Esterase-Dipstick 25 /ul (Negative); Mucous, Urine 0 SEEN /hpf (<or=2+); Nitrite-Dipstick Negative (Negative); Occult Blood-Urine 10 /ul (Negative); Protein-Dipstick 30 mg/dl (Negative); Red Blood Cells-Urine 0 SEEN /hpf (0-5); Urine Bilirubin Dipstick Negative (Negative); Urine Clarity Clear (Clear); Urine Urobilinogen Normal (Normal)
[2025-02-06 20:04] LABS: Amphetamine Urine NEGATIVE (<1000 ng/mL); Barbiturate Urine NEGATIVE (< 200 ng/mL); Benzodiazepine Urine NEGATIVE (< 200 ng/mL); Buprenorphine Urine NEGATIVE (< 200 ng/mL); Cocaine Urine NEGATIVE (< 300 ng/mL); Fentanyl, Urine NEGATIVE; Methadone Urine NEGATIVE (< 300 ng/mL); Opiates Urine NEGATIVE (< 300 ng/mL); Oxycodone, Urine NEGATIVE (< 100 ng/mL); PCP Urine NEGATIVE (< 25 ng/mL); THC Urine NEGATIVE (< 50 ng/mL)
[2025-02-06 20:33] LABS: Ketone-Dipstick 150 mg/dl (Negative)
[2025-02-06 20:40] LABS: Bedside Glucose 157 mg/dL (74-106)
[2025-02-06 20:48] LABS: Squamous Epithelial Cells - UA 0-5 SEEN /hpf (5-10); White Blood Cells 0-5 SEEN /hpf (0-5)
[2025-02-06] MEDS: Insulin Lispro 100 UNIT/ML INSULN.PEN SC (21:34)
[2025-02-06] MEDS: Atorvastatin Calcium 40 MG Tablet PO (21:34)
[2025-02-06] MEDS: Lidocaine 5% Patch 2 PATCH TOPICAL (21:34)
[2025-02-06] MEDS: Gabapentin 400 MG Capsule PO (21:34)
[2025-02-06] MEDS: icosapent ethyL 1 GM Capsule 2 GM PO (22:34)
--- NOTE | 2025-02-06 23:48 | CPS ---
1930- RT at bedside to start breathing treatments with patient who informed RT that she cannot take aerosol treatments because they make her feel worse and more short of breath. She was persistent that she would not take breathing treatments and was interested in having them discontinued so that no one else would try to give her one while she is here. Hospitalist aware.
[2025-02-07] VITALS (9 sets, daily range): BP systolic 90–125; BP diastolic 62–77; PULSE 62–97; RESP 16–20; TEMP 36.4–36.6; O2SAT 82–98; BMI 23.7
[2025-02-07 06:32] LABS: Absolute Lymphocyte Count 2.08 X10^3/uL (0.83-4.51); Absolute Neutrophil Count 14.3 X10^3/uL (2.0-7.7); Basophil# 0.03 X10^3/uL; Basophil% 0.2 % (0-1); Hemoglobin 13.2 g/dL (12.0-15.0); Lymphocyte # 2.08 X10^3/ul (0.83-4.51); Lymphocyte % 12.1 % (19-41); Mean Corp Hgb Conc 36.7 g/dL (32-36); Mean Corpuscular Hgb 34.5 pg (27.0-32.0); Mean Platelet Vol. 10.1 fl (6.2-12.0); Monocyte# 0.61 X10^3/uL; Monocyte% 3.5 % (0-10); NRBC Flagged by Analyzer 0.2 % (0-5); Neutrophil # 14.34 X10^3/uL (2.7-7.7); Neutrophil % 83.2 % (47-70); Platelet Count 319 K/mm3 (150-450); RBC Distribution Width SD 58.2 fl (35.1-43.9); Red Blood Count 3.83 M/mm3 (4.2-5.4); White Blood Count 17.2 K/mm3 (4.4-11.0)
[2025-02-07] MEDS: Gabapentin 400 MG Capsule PO ×3 (06:34→22:56)
[2025-02-07] MEDS: Levothyroxine 75 MCG Tablet PO (06:34)
[2025-02-07 07:31] LABS: ALB/GLOB Ratio 1.3 RATIO (0.9-2.4); AST(SGOT) 24 U/L (<=31); Alanine Aminotransfer ALT/SGPT 10 U/L (<=34); Albumin, Serum 3.7 g/dL (3.5-5.0); Alkaline Phosphatase 106 U/L (35-104); Anion Gap 15 (5-15); BUN 25 mg/dL (4-19); BUN/Creat Ratio 21.1 RATIO (10-20); Calcium,Total 8.8 mg/dL (7.6-11.0); Carbon Dioxide 18.4 mmol/L (21.0-32.0); Chloride 99 mmol/L (98-108); Creatinine, Serum 1.18 mg/dL (0.70-1.20); EST Glomerular Filtration Rate 55 (>60); Estimated Creatinine Clearance 48.47 ml/min (50-250); Globulin 2.8 g/dL (2.2-4.2); Glucose 126 mg/dL (70-99); Potassium 4.2 mmol/L (3.3-5.1); Protein, Total 6.5 g/dL (5.9-8.4); Sodium Level 133 mmol/L (133-145); Total Bilirubin 0.66 mg/dL (0.00-1.30)
[2025-02-07 07:32] LABS: BETA-HYDROXYBUTYRATE 2.8 mmol/L (0.0-0.3)
[2025-02-07 07:34] LABS: Hemoglobin A1c 5.1 % (<=5.6)
[2025-02-07 08:12] LABS: Bedside Glucose 135 mg/dL (74-106)
[2025-02-07] MEDS: Aspirin E.C. 81 MG Tablet PO (09:50)
[2025-02-07] MEDS: Loratadine 10 MG Tablet PO (09:50)
[2025-02-07] MEDS: Febuxostat 40 MG TABLET 80 MG PO (09:50)
[2025-02-07] MEDS: Pantoprazole Sodium 40 MG Tablet PO (09:50)
[2025-02-07] MEDS: icosapent ethyL 1 GM Capsule 2 GM PO ×2 (09:51→22:56)
[2025-02-07] MEDS: Metoprolol(XL)Succ 25 MG Tablet PO (09:52)
[2025-02-07] MEDS: Cholecalciferol (VIT D3) 25 MCG TABLET (1,000 UNITS) 50 MCG PO (09:57)
[2025-02-07] MEDS: FLUoxetine 20 MG Capsule PO (09:57)
[2025-02-07] MEDS: Montelukast 10 MG Tablet PO (09:58)
[2025-02-07 12:07] LABS: Bedside Glucose 150 mg/dL (74-106)
[2025-02-07] MEDS: Ampicillin/Sulbactam 3 GM in 0.9% Normal Saline (100mL MB+) 100 ML IV ×3 (14:44→23:30)
[2025-02-07] MEDS: 0.9% Saline Lock 10 ML Syringe IV ×2 (14:45→22:57)
--- NOTE | 2025-02-07 15:13 | CASEMGMT ---
Addendum entered by Misael Garcia 02/07/25 15:27: Pt states she also has a Trilogy unit that she wears @ HS. Green sheet placed on chart if pt qualifies for home O2 and notated on script if pt needs O2 @ rest, will need adapter to bleed-in O2 @ HS. Original Note: MAURICE PARKER Assessment Face to Face with patient for initial transition planning/care coordination assessment. MAURICE PARKER introduced self and role at [facility], pt voices understanding. Pt is A&Ox4 and is resting comfortably in bed and is calm. Care providers, pharmacy, and demographics verified. Admitting dx: Presyncope LACE Strata:3 PCP: Aron Palumbo Specialists: Denies Preferred Pharmacy: [facility] Insurance: ROSEANNE MARIA Prescription Benefit: Yes LNOK: Milad (H) Living Arrangements: Pt lives with her in a 2 story home with 6 steps to enter with handrails ADLs/IADLs: Pt states that she is entirely independent Transportation: Self, . Denies concerns DME: [employer] Cane. BP Machine. Pt is currently requiring additional oxygen and may qualify for home oxygen use. A verbal list of local in-network DME companies were provided to the pt at this time. Pt prefers [employer]Pt states that she does not have a pox but plans to buy one at [employer] after d/c. Pt was given medical alert system resources. HHC/SNF: Reports HH history x 3- 4 years ago. Pt states that it was through [facility] HH. Denies SNF Pt?s goal: Home Plan: Home with pt SO once medically ready, follow for oxygen needs. At this time, the pt denies the need for HH, OP Tx, or any further DC needs or resources. Pt states that she feels safe returning home with her once she is medically ready and denies further questions or concerns at this time. Aleida Orosco RN, CM
[2025-02-07] MEDS: Ipratropium 0.5 MG/2.5 ML SOLUTION INHALATION ×3 (15:14→23:37)
[2025-02-07 17:21] LABS: Bedside Glucose 121 mg/dL (74-106)
--- NOTE | 2025-02-07 17:36 | PCM.PN.HOSP ---
Reason for Visit Reason for Visit: Presyncope Subjective Subjective Patient still states that she is intermittently felt presyncope despite having adequate oxygenation. Lung sounds are significantly abnormal. Patient denies fever or chills. She is not having any productive cough. She does still smoke about half a pack of cigarettes daily. Is not oxygen dependent at home. States she had a Holter monitor that was unremarkable. Objective Data Objective Data Vital Signs: Vital Signs Temp Pulse Resp BP Pulse Ox O2 Del Method O2 Flow Rate 97.8 F 80 16 90/62 92 Nasal Cannula 2 02/07/25 14:00 02/07/25 14:00 02/07/25 14:00 02/07/25 14:00 02/07/25 14:00 02/07/25 14:00 02/07/25 14:00 Oxygen Flow Rate (L/min) 2 Oxygen Delivery Method Nasal Cannula Weight: 64.6 kg Body Mass Index (BMI) 23.7 Intake & Output: Intake and Output for Last 24 Hours 02/05/25 02/06/25 02/07/25 23:59 23:59 23:59 Intake Total 1560 / 1560 1412 / 1412 Balance 1560 / 1560 1412 / 1412 Medical Nutrition Assessment Dietitian: Malnutrition Criteria Met Start: 02/07/25 15:52 Freq: Status: Active Protocol: Document 02/07/25 15:52 RMA (Rec: 02/07/25 15:52 RMA [id number]) Nutrition Malnutrition Evidence of Yes Malnutrition Exists Malnutrition (severe Acute Illness/Injury ): Evidenced By Suboptimal Energy Intake (Severe),Weight Loss (Severe) Clinical Problem Acute Disease or Injury Related Malnutrition Etiology Severe protein-calorie malnutrition in the context of acute illness related to altered GI function and inadequate oral/energy intake Signs/Symptoms as evidenced by ~10-11% unintentional weight loss x less than 1 month, BMI 23.7 and PO meeting less than 50 % estimated nutrition needs x past 2 weeks Status Active Problem Recommendation Dietitian Will liberalize diet to carbohydrate-controlled (no Recommendations/ caloric restriction). Changes Will add 120mL vanilla ensure plus HP w/ meals. Additional ONS as appetite and PO improve at meals. Trend weights closely. Lab / Micro Data 02/07/25 05:45 02/07/25 05:45 Labs: Laboratory Results - last 24 hr 02/06/25 18:45: Urine Color Yellow, Urine Clarity Clear, Urine pH 6.0, Ur Specific [place] 1.010, Urine Protein 30 H, Urine Glucose (UA) Normal, Urine Ketones 150 A*, Urine Occult Blood 10 H, Urine Nitrite Negative, Urine Bilirubin Negative, Urine Urobilinogen Normal, Ur Leukocyte Esterase 25 H, Urine RBC 0 SEEN, Urine WBC 0-5 SEEN, Ur Squamous Epith Cells 0-5 SEEN, Urine Bacteria 0 SEEN, Urine Mucus 0 SEEN, Urine Opiates Screen NEGATIVE, U Buprenorphine Qual NEGATIVE, Ur Oxycodone Screen NEGATIVE, Urine Methadone Screen NEGATIVE, Urine Fentanyl Screen NEGATIVE, Ur Barbiturates Screen NEGATIVE, Ur Phencyclidine Scrn NEGATIVE, Ur Amphetamines Screen NEGATIVE, U Benzodiazepines Scrn NEGATIVE, Urine Cocaine Screen NEGATIVE, U Cannabinoids Screen NEGATIVE 02/06/25 20:21: POC Glucose 157 H 02/07/25 05:45: WBC 17.2 H, RBC 3.83 L, Hgb 13.2, Hct 36.0 L, MCV 94.0, MCH 34.5 H, MCHC 36.7 H, RDW Std Deviation 58.2 H, RDW Coeff of Cipriano 17.0 H, Plt Count 319, MPV 10.1, Immature Gran % (Auto) 1.000 H, Neut % (Auto) 83.2 H, Lymph % (Auto) 12.1 L, [place] % (Auto) 3.5, Eos % (Auto) 0.0, Baso % (Auto) 0.2, Absolute Neuts (auto) 14.3 H, Absolute Lymphs (auto) 2.08, Nucleated RBC % 0.2, Sodium 133, Potassium 4.2, Chloride 99, Carbon Dioxide 18.4 L, Anion Gap 15, BUN 25 H, Creatinine 1.18, Estim Creat Clear Calc 48.47 L, Est GFR (MDRD) Non-Af 55 L, BUN/Creatinine Ratio 21.1 H, Glucose 126 H, Hemoglobin A1c 5.1, Calcium 8.8, Total Bilirubin 0.66, AST 24, ALT 10, Alkaline Phosphatase 106 H, Total Protein 6.5, Albumin 3.7, Globulin 2.8, Albumin/Globulin Ratio 1.3, b-Hydroxybutyric mmol/L 2.8 02/07/25 06:32: POC Glucose 135 H 02/07/25 11:48: POC Glucose 150 H 02/07/25 17:03: POC Glucose 121 H Micro: Microbiology 02/06/25 18:45 Urine, Clean Catch Urine Culture - Preliminary GPC Poss Enterococcus sp 02/06/25 11:35 Mucosa - Nose SARS-CoV-2, Influenza & RSV (PCR) - Final Radiography Diagnostic Testing: Radiology Impression Echocardiogram 02/06/25 15:28 Interpretation Summary The study was technically difficult. The LV systolic function is normal. EF is 65 %. No evidence for diastolic dysfunction. Ordering Physician: Keisha Del Cid Referring Physician: PAYAL BURDICK Performed By: Crista Thapa RDCS Physical Exam Const alert, oriented x3, no apparent distress and average body habitus; Negative for healthy appearing or well nourished Constitutional Narrative: Very pleasant, upper middle-aged, white female, sitting up in the bed, nursing at bedside, patient appears older than stated age, does not appear toxic HEENT head/scalp atraumatic and moist oral mucous membranes HEENT Narrative: Mallampati is 2, no thrush Head and Scalp: normocephalic Eyes conjunctivae normal Eyes Narrative: No scleral icterus Neck supple Neck Narrative: Trachea midline Resp normal respiratory effort, no retractions, no use of accessory muscles and No clear to auscultation bilaterally Resp Narrative: Rhonchi and wheeze right side upper and lower lobe, faint end expiratory wheeze left lung field, appears comfortable on 2 L nasal cannula with no signs of respiratory distress Auscultation: rhonchi and wheezes; Negative for rales Cardio regular rate, regular rhythm, S1 normal heart sound, S2 normal heart sound, no murmurs, no rub, no gallops and no clicks GI normal to inspection, nondistended, normoactive bowel sounds, soft to palpation and non-tender Extremity no clubbing, cyanosis or edema Extremity Narrative: Pedal pulses are 2+ Skin skin turgor normal, no jaundice, no petechiae and no mottling Neuro oriented x3, moves all extremities and no focal motor deficits Speech: speech normal Psych affect normal Psych Narrative: Extremely pleasant, patient interacts appropriately, eye contact is good Assessment & Plan Assessment/Plan (1) Near syncope: (2) Severe malnutrition: (3) Leukocytosis: (4) Hypoxia: (5) Nausea and vomiting: (6) Enterococcus UTI: PLAN: Plan Near syncope - Etiology is unclear - evidently this has been an ongoing problem as the patient had a Holter monitor that was unremarkable - Echocardiogram showed an EF of 65% with diastolic dysfunction - CTA of the chest was negative for any signs of PE but does show evidence of bronchiectasis - Blood pressure is on the soft side so we will hold losartan and put hold parameters on metoprolol Acute hypoxia - Patient with significantly abnormal lung sounds right greater than left - No significant pneumonia noted on CT however patient may have been a bit dry due to decreased p.o. intake - Continue oxygen at 2 L and wean as able - Will need to check ambulatory pulse ox prior to discharge today she required 2 L at rest and 3 with exertion - Start Solu-Medrol 40 every 8 - Incentive spirometry and Acapella - COVID/flu/RSV is negative - check respiratory viral panel - check sputum if able to produce -Will start Unasyn for now may need to broaden depending on response - BNP is not elevated Enterococcus UTI - Start Unasyn - Sensitivities are pending - Will treat as uncomplicated UTI Nausea and vomiting - May be related to urinary tract infection - IV fluids for now - Reassess nausea in the morning - As needed antiemetics - No significant abnormalities noted on KUB - Mounjaro could be nidus for this Leukocytosis - Suspect related to infection - Continue antibiotics - Repeat lab in a.m. - May trend up with steroid use Severe malnutrition - Dietitian is following -supplements added - Liberalize diet Hypothyroidism - Continue home levothyroxine Troponin elevation - Echo with no wall motion abnormalities -Initial troponin was 31 with delta down trended to 25 - No further workup necessary at this time CKD stage IIIb - Kidney function actually improved - Avoid nephrotoxins - Repeat BMP in a.m. Essential hypertension - Continue to hold Lasix - Hold irbesartan - Hold parameters on metoprolol - Continue to trend GERD - Continue home PPI Metabolic acidosis with elevated anion gap -lactic acid was normal - Highly suspect starvation ketosis as patient had large ketones on her UA - Probably related to not eating - Improved today - continue to monitor with repeat BMP in a.m. Suspected COPD - Should follow-up with pulmonary as an outpatient have PFTs and a 6-minute walk test Chronic pain - Continue home pain medication regimen including buprenorphine patch, lidocaine patch, gabapentin History of gout - Continue home medications Hyperlipidemia - Continue home atorvastatin Depression/anxiety - Will stop home Cymbalta as fluoxetine was recently filled - continue fluoxetine Tobacco abuse - Nicotine patch available - Cessation recommended DVT prophylaxis - Continue subcu Lovenox CODE STATUS - Full code was verified Charges/Coding Visit Charges Inpatient E&M: 39974 Subs Hosp L3
[2025-02-07] MEDS: guaiFENesin 1,200 MG Tablet 1200 MG PO (17:45)
[2025-02-07] MEDS: 0.9% Normal Saline (1000mL) 1,000 ML 75 ML IV (18:13)
[2025-02-07] MEDS: Atorvastatin Calcium 40 MG Tablet PO (22:57)
[2025-02-07] MEDS: Methylprednisolone Sod Succ 40 MG/ML VIAL IV (22:57)
[2025-02-07] MEDS: Lidocaine 5% Patch 2 PATCH TOPICAL (22:58)
[2025-02-08] VITALS (12 sets, daily range): BP systolic 94–107; BP diastolic 52–76; PULSE 64–79; RESP 12–18; TEMP 36.3–36.6; O2SAT 93–96; BMI 23.8
[2025-02-08 00:09] LABS: Bedside Glucose 109 mg/dL (74-106)
[2025-02-08] MEDS: Gabapentin 400 MG Capsule PO ×3 (05:08→20:25)
[2025-02-08] MEDS: Levothyroxine 75 MCG Tablet PO (05:08)
[2025-02-08] MEDS: Methylprednisolone Sod Succ 40 MG/ML VIAL IV ×3 (05:08→20:25)
[2025-02-08] MEDS: 0.9% Saline Lock 10 ML Syringe IV ×2 (05:09→20:25)
[2025-02-08] MEDS: Ampicillin/Sulbactam 3 GM in 0.9% Normal Saline (100mL MB+) 100 ML IV ×3 (05:11→18:00)
[2025-02-08 06:01] LABS: Absolute Lymphocyte Count 1.18 X10^3/uL (0.83-4.51); Absolute Neutrophil Count 10.6 X10^3/uL (2.0-7.7); Basophil# 0.01 X10^3/uL; Basophil% 0.1 % (0-1); Hematocrit 31.7 % (37-47); Hemoglobin 11.6 g/dL (12.0-15.0); Lymphocyte # 1.18 X10^3/ul (0.83-4.51); Lymphocyte % 9.8 % (19-41); Mean Corp Hgb Conc 36.6 g/dL (32-36); Mean Corpuscular Hgb 34.6 pg (27.0-32.0); Mean Corpuscular Volume 94.6 fL (81-99); Mean Platelet Vol. 10.2 fl (6.2-12.0); Monocyte# 0.12 X10^3/uL; NRBC Flagged by Analyzer 0.3 % (0-5); Neutrophil # 10.58 X10^3/uL (2.7-7.7); Neutrophil % 88.3 % (47-70); Platelet Count 252 K/mm3 (150-450); RBC Distribution Width CV 17.3 % (11.6-14.6); RBC Distribution Width SD 59.7 fl (35.1-43.9); Red Blood Count 3.35 M/mm3 (4.2-5.4)
[2025-02-08 06:22] LABS: Phosphorus 1.9 mg/dL (2.7-4.5)
[2025-02-08] MEDS: Insulin Lispro 100 UNIT/ML INSULN.PEN SC ×4 (06:22→20:23)
[2025-02-08 06:29] LABS: ALB/GLOB Ratio 1.4 RATIO (0.9-2.4); AST(SGOT) 23 U/L (<=31); Alanine Aminotransfer ALT/SGPT 9 U/L (<=34); Albumin, Serum 3.4 g/dL (3.5-5.0); Alkaline Phosphatase 90 U/L (35-104); Anion Gap 12 (5-15); BUN 26 mg/dL (4-19); BUN/Creat Ratio 23.6 RATIO (10-20); Calcium,Total 8.6 mg/dL (7.6-11.0); Carbon Dioxide 18.3 mmol/L (21.0-32.0); Chloride 103 mmol/L (98-108); Creatinine, Serum 1.08 mg/dL (0.70-1.20); EST Glomerular Filtration Rate 61 (>60); Estimated Creatinine Clearance 52.96 ml/min (50-250); Globulin 2.4 g/dL (2.2-4.2); Glucose 145 mg/dL (70-99); Potassium 4.2 mmol/L (3.3-5.1); Protein, Total 5.8 g/dL (5.9-8.4); Sodium Level 132 mmol/L (133-145); Total Bilirubin 0.68 mg/dL (0.00-1.30)
[2025-02-08 06:41] LABS: Bedside Glucose 181 mg/dL (74-106)
[2025-02-08] MEDS: Ipratropium 0.5 MG/2.5 ML SOLUTION INHALATION ×4 (07:20→22:59)
[2025-02-08] MEDS: guaiFENesin 1,200 MG Tablet 1200 MG PO ×2 (08:23→20:25)
[2025-02-08] MEDS: Febuxostat 40 MG TABLET 80 MG PO (08:24)
[2025-02-08] MEDS: icosapent ethyL 1 GM Capsule 2 GM PO ×2 (08:24→20:24)
[2025-02-08] MEDS: Cholecalciferol (VIT D3) 25 MCG TABLET (1,000 UNITS) 50 MCG PO (08:24)
[2025-02-08] MEDS: Montelukast 10 MG Tablet PO (08:25)
[2025-02-08] MEDS: Loratadine 10 MG Tablet PO (08:25)
[2025-02-08] MEDS: Aspirin E.C. 81 MG Tablet PO (08:26)
[2025-02-08] MEDS: Pantoprazole Sodium 40 MG Tablet PO (08:26)
[2025-02-08] MEDS: FLUoxetine 20 MG Capsule PO (08:26)
--- NOTE | 2025-02-08 08:28 | PN.HOSP_ITS ---
Reason for Visit Reason for Visit: Presyncope Subjective Subjective Patient states she is feeling at least 50% better today. States overall she is improved significantly since admission. Was able to eat some breakfast this morning. States that the best she is been in some time. No significant nausea or abdominal pain. Objective Data Objective Data Vital Signs: Vital Signs Temp Pulse Resp BP Pulse Ox O2 Del Method O2 Flow Rate 97.8 F 64 16 97/72 96 Nasal Cannula 2 02/08/25 08:14 02/08/25 08:14 02/08/25 08:14 02/08/25 08:14 02/08/25 08:14 02/08/25 08:14 02/08/25 08:14 Oxygen Flow Rate (L/min) 2 Oxygen Delivery Method Nasal Cannula Weight: 65 kg Body Mass Index (BMI) 23.8 Intake & Output: Intake and Output for Last 24 Hours 02/06/25 02/07/25 02/08/25 23:59 23:59 23:59 Intake Total 1560 / 1560 2540.25 / 2540.25 714 / 714 Balance 1560 / 1560 2540. / 2540.25 714 / 714 Medical Nutrition Assessment Dietitian: Malnutrition Criteria Met Start: 02/07/25 15:52 Freq: Status: Active Protocol: Document 02/07/25 15:52 RMA (Rec: 02/07/25 15:52 RMA [id number]) Nutrition Malnutrition Evidence of Yes Malnutrition Exists Malnutrition (severe Acute Illness/Injury ): Evidenced By Suboptimal Energy Intake (Severe),Weight Loss (Severe) Clinical Problem Acute Disease or Injury Related Malnutrition Etiology Severe protein-calorie malnutrition in the context of acute illness related to altered GI function and inadequate oral/energy intake Signs/Symptoms as evidenced by ~10-11% unintentional weight loss x less than 1 month, BMI 23.7 and PO meeting less than 50 % estimated nutrition needs x past 2 weeks Status Active Problem Recommendation Dietitian Will liberalize diet to carbohydrate-controlled (no Recommendations/ caloric restriction). Changes Will add 120mL vanilla ensure plus HP w/ meals. Additional ONS as appetite and PO improve at meals. Trend weights closely. Lab / Micro Data 02/08/25 05:07 02/08/25 05:07 Labs: Laboratory Results - last 24 hr 02/07/25 11:48: POC Glucose 150 H 02/07/25 17:03: POC Glucose 121 H 02/07/25 22:54: POC Glucose 109 H 02/08/25 05:07: WBC 12.0 H, RBC 3.35 L, Hgb 11.6 L, Hct 31.7 L, MCV 94.6, MCH 34.6 H, MCHC 36.6 H, RDW Std Deviation 59.7 H, RDW Coeff of Cipriano 17.3 H, Plt Count 252, MPV 10.2, Immature Gran % (Auto) 0.800, Neut % (Auto) 88.3 H, Lymph % (Auto) 9.8 L, [place] % (Auto) 1.0, Eos % (Auto) 0.0, Baso % (Auto) 0.1, Absolute Neuts (auto) 10.6 H, Absolute Lymphs (auto) 1.18, Nucleated RBC % 0.3, Sodium 132 L, Potassium 4.2, Chloride 103, Carbon Dioxide 18.3 L, Anion Gap 12, BUN 26 H, Creatinine 1.08, Estim Creat Clear Calc 52.96, Est GFR (MDRD) Non-Af 61, B UN/Creatinine Ratio 23.6 H, Glucose 145 H, Calcium 8.6, Phosphorus 1.9 L, Magnesium 2.0, Total Bilirubin 0.68, AST 23, ALT 9, Alkaline Phosphatase 90, T otal Protein 5.8 L, Albumin 3.4 L, Globulin 2.4, Albumin/Globulin Ratio 1.4 02/08/25 06:21: POC Glucose 181 H Micro: Microbiology 02/06/25 18:45 Urine, Clean Catch Urine Culture - Final Enterococcus faecalis 02/07/25 16:12 Mucosa - Nose Respiratory Panel (PCR) - Final 02/06/25 11:35 Mucosa - Nose SARS-CoV-2, Influenza & RSV (PCR) - Final Radiography Diagnostic Testing: Radiology Impression Echocardiogram 02/06/25 15:28 Interpretation Summary The study was technically difficult. The LV systolic function is normal. EF is 65 %. No evidence for diastolic dysfunction. Ordering Physician: Keisha Del Cid Referring Physician: PAYAL BURDICK Performed By: Crista Thapa RDCS Physical Exam Const alert, oriented x3, no apparent distress and average body habitus; Negative for healthy appearing or well nourished Constitutional Narrative: Very pleasant, upper middle-aged, white female, sitting up in the bed, just finished breakfast and watching television, nursing at bedside, patient appears older than stated age, does not appear toxic HEENT head/scalp atraumatic and moist oral mucous membranes HEENT Narrative: Mallampati 2, no thrush Head and Scalp: normocephalic Eyes Eyes Narrative: No scleral icterus Neck Neck Narrative: Trachea midline Resp normal respiratory effort, no retractions, no use of accessory muscles and No clear to auscultation bilaterally Resp Narrative: Still with coarse breath sounds on the right side. No wheezes today on the left, few scattered end expiratory wheezes on the right with crackles in the right base Auscultation: crackles, rhonchi and wheezes; Negative for rales Cardio regular rate, regular rhythm, S1 normal heart sound, S2 normal heart sound, no murmurs, no rub, no gallops and no clicks GI normal to inspection, nondistended, normoactive bowel sounds, soft to palpation and non-tender Extremity no clubbing, cyanosis or edema Extremity Narrative: Pedal pulses are 2+ Neuro oriented x3, moves all extremities and no focal motor deficits Speech: speech normal Psych affect normal Psych Narrative: Extremely pleasant, patient interacts appropriately, eye contact is good Assessment & Plan Assessment/Plan (1) Near syncope: (2) Severe malnutrition: (3) Leukocytosis: (4) Hypoxia: (5) Nausea and vomiting: (6) Enterococcus UTI: PLAN: Plan Near syncope - Etiology is unclear - evidently this has been an ongoing problem as the patient had a Holter monitor that was unremarkable - Echocardiogram showed an EF of 65% with diastolic dysfunction - CTA of the chest was negative for any signs of PE but does show evidence of bronchiectasis -May be related to urinary tract infection - Continue to hold home antihypertensives Acute hypoxia - Patient with significantly abnormal lung sounds right greater than left but better today than yesterday - No significant pneumonia noted on CT however patient may have been a bit dry due to decreased p.o. intake -Still requiring oxygen at 2 L - Will need to check ambulatory pulse ox prior to discharge today she required 2 L at rest and 3 with exertion - Start Solu-Medrol 40 every 8 - Incentive spirometry and Acapella - COVID/flu/RSV is negative - Respiratory viral panel was unremarkable - Patient has not yet produced a sputum culture - Continue Unasyn day 2 of 7 Enterococcus UTI -Continue Unasyn -Organism is ampicillin sensitive - Will treat as uncomplicated UTI Nausea and vomiting -Resolving with treatment of her UTI -Continue to monitor p.o. intake throughout the day - Mounjaro could be nidus for this Leukocytosis -Trending down - Continue antibiotics - Repeat lab in a.m. - May trend up with steroid use Severe malnutrition - Dietitian is following - supplements added - Liberalize diet Hypothyroidism - Continue home levothyroxine Troponin elevation - Echo with no wall motion abnormalities - Initial troponin was 31 with delta down trended to 25 - No further workup necessary at this time CKD stage IIIb - Kidney function actually improved - Avoid nephrotoxins - Repeat BMP in a.m. Essential hypertension - Continue to hold Lasix - Hold irbesartan - Hold parameters on metoprolol - Continue to trend - Patient may need less medication with weight loss--> she is down about 20 kg since 2019 and down about 10 kg since early December of this year GERD - Continue home PPI Metabolic acidosis with elevated anion gap -lactic acid was normal - Highly suspect starvation ketosis as patient had large ketones on her UA - Probably related to not eating - Improved today - continue to monitor with repeat BMP in a.m. Suspected COPD - Should follow-up with pulmonary as an outpatient have PFTs and a 6-minute walk test Chronic pain - Continue home pain medication regimen including buprenorphine patch, lidocaine patch, gabapentin History of gout - Continue home medications Hyperlipidemia - Continue home atorvastatin Depression/anxiety - Will stop home Cymbalta as fluoxetine was recently filled - continue fluoxetine Tobacco abuse - Nicotine patch available - Cessation recommended DVT prophylaxis - Continue subcu Lovenox CODE STATUS - Full code was verified Charges/Coding Visit Charges Inpatient E&M: 28440 Subs Hosp L2
[2025-02-08] MEDS: 0.9% Normal Saline (1000mL) 1,000 ML 75 ML IV (10:51)
[2025-02-08] MEDS: Buprenorphine 20 mcg Patch (WEEKLY) 1 PATCH TD (10:52)
[2025-02-08] MEDS: Sodium Phosphate/Na Biphos 40 MMOL in 0.9% Normal Saline (500mL Bag) 500 ML 62.5 MMOL IV (10:55)
[2025-02-08 12:42] LABS: Bedside Glucose 276 mg/dL (74-106)
[2025-02-08 16:57] LABS: Bedside Glucose 186 mg/dL (74-106)
[2025-02-08] MEDS: Atorvastatin Calcium 40 MG Tablet PO (20:24)
[2025-02-08] MEDS: Lidocaine 5% Patch 2 PATCH TOPICAL (20:24)
[2025-02-08 22:16] LABS: Bedside Glucose 195 mg/dL (74-106)
[2025-02-09] VITALS (7 sets, daily range): BP systolic 110–120; BP diastolic 76–80; PULSE 70–87; RESP 14–18; TEMP 36.8–37.1; O2SAT 85–96; BMI 26.1
[2025-02-09] MEDS: 0.9% Normal Saline (1000mL) 1,000 ML 75 ML IV (00:12)
[2025-02-09] MEDS: Ampicillin/Sulbactam 3 GM in 0.9% Normal Saline (100mL MB+) 100 ML IV ×3 (00:12→14:02)
[2025-02-09 05:09] LABS: Absolute Lymphocyte Count 1.61 X10^3/uL (0.83-4.51); Absolute Neutrophil Count 22.6 X10^3/uL (2.0-7.7); Basophil# 0.04 X10^3/uL; Basophil% 0.2 % (0-1); Hematocrit 31.6 % (37-47); Hemoglobin 11.6 g/dL (12.0-15.0); Lymphocyte # 1.61 X10^3/ul (0.83-4.51); Lymphocyte % 6.3 % (19-41); Mean Corp Hgb Conc 36.7 g/dL (32-36); Mean Corpuscular Volume 95.5 fL (81-99); Mean Platelet Vol. 10.4 fl (6.2-12.0); Monocyte# 0.79 X10^3/uL; Monocyte% 3.1 % (0-10); NRBC Flagged by Analyzer 0.2 % (0-5); Neutrophil # 22.59 X10^3/uL (2.7-7.7); POSITIVE DIFFERENTIAL YES; Platelet Count 281 K/mm3 (150-450); RBC Distribution Width CV 17.5 % (11.6-14.6); RBC Distribution Width SD 61.1 fl (35.1-43.9); Red Blood Count 3.31 M/mm3 (4.2-5.4); White Blood Count 25.4 K/mm3 (4.4-11.0)
[2025-02-09 05:16] LABS: Differential Indicated SCAN CRITERIA MET
[2025-02-09] MEDS: Levothyroxine 75 MCG Tablet PO (05:30)
[2025-02-09] MEDS: Methylprednisolone Sod Succ 40 MG/ML VIAL IV ×2 (05:30→14:03)
[2025-02-09] MEDS: Gabapentin 400 MG Capsule PO ×2 (05:30→14:02)
[2025-02-09 05:41] LABS: Phosphorus 3.4 mg/dL (2.7-4.5)
[2025-02-09 05:53] LABS: Anion Gap 11 (5-15); BUN 22 mg/dL (4-19); BUN/Creat Ratio 18.7 RATIO (10-20); Calcium,Total 8.4 mg/dL (7.6-11.0); Carbon Dioxide 20.6 mmol/L (21.0-32.0); Chloride 104 mmol/L (98-108); Creatinine, Serum 1.15 mg/dL (0.70-1.20); Differential Comment SCANNED; EST Glomerular Filtration Rate 56 (>60); Estimated Creatinine Clearance 54.66 ml/min (50-250); Glucose 128 mg/dL (70-99); Potassium 4.1 mmol/L (3.3-5.1); Sodium Level 135 mmol/L (133-145)
[2025-02-09] MEDS: Ipratropium 0.5 MG/2.5 ML SOLUTION INHALATION ×2 (07:02→11:31)
[2025-02-09] MEDS: Cholecalciferol (VIT D3) 25 MCG TABLET (1,000 UNITS) 50 MCG PO (08:44)
[2025-02-09] MEDS: Metoprolol(XL)Succ 25 MG Tablet PO (08:44)
[2025-02-09] MEDS: Montelukast 10 MG Tablet PO (08:44)
[2025-02-09] MEDS: Febuxostat 40 MG TABLET 80 MG PO (08:44)
[2025-02-09] MEDS: guaiFENesin 1,200 MG Tablet 1200 MG PO (08:45)
[2025-02-09] MEDS: Loratadine 10 MG Tablet PO (08:45)
[2025-02-09] MEDS: Pantoprazole Sodium 40 MG Tablet PO (08:45)
[2025-02-09] MEDS: Aspirin E.C. 81 MG Tablet PO (08:45)
[2025-02-09] MEDS: FLUoxetine 20 MG Capsule PO (08:45)
[2025-02-09] MEDS: icosapent ethyL 1 GM Capsule 2 GM PO (08:46)
[2025-02-09] MEDS: Insulin Lispro 100 UNIT/ML INSULN.PEN SC (11:53)
[2025-02-09 12:21] LABS: Bedside Glucose 217 mg/dL (74-106)
--- NOTE | 2025-02-09 13:01 | PCM.DC.SUM ---
Providers Date of Admission: 02/07/25 Date of Discharge: 02/09/25 Primary Care Physician: Dr. Aron Palumbo MD Reason For Visit: PRESYNCOPE Diagnosis Discharge Diagnosis (1) Near syncope: Status: Acute Code(s): R55 - Syncope and collapse (2) Severe malnutrition: Status: Acute Code(s): E43 - Unspecified severe protein-calorie malnutrition (3) Leukocytosis: Status: Acute Code(s): D72.829 - Elevated white blood cell count, unspecified (4) Hypoxia: Status: Acute Code(s): R09.02 - Hypoxemia (5) Nausea and vomiting: Status: Acute Code(s): R11.2 - Nausea with vomiting, unspecified (6) Enterococcus UTI: Status: Acute Code(s): N39.0 - Urinary tract infection, site not specified; B95.2 - Enterococcus as the cause of diseases classified elsewhere Medications at Discharge Home Medications atorvastatin 40 mg tablet 40 mg PO QHS cholesterol 03/05/18 cetirizine 10 mg capsule 10 mg PO DAILY allergies 03/05/18 febuxostat 80 mg tablet 80 mg PO DAILY decrease uric acid 03/05/18 lidocaine 5 % topical patch 1 - 2 patch topical QHS pain 03/05/18 montelukast 10 mg tablet 10 mg PO DAILY allergies 03/05/18 potassium citrate 15 mEq (1,620 mg) tablet,extended release 15 meq PO DAILY PRN with lasix 03/05/18 sodium chloride 0.65 % nasal spray aerosol 1 spray NS Q2H PRN Allergies 03/05/18 buprenorphine 20 mcg/hour weekly transdermal patch (Butrans) 20 mcg transdermal SA pain 10/11/18 irbesartan 75 mg tablet 75 mg PO QHS KIDNEYS 07/06/19 Held on 02/09/25. Instructions: Until instructed by a physician to restart. Your blood pressures have been low and it does not appear that you need it with the weight loss you have had aspirin 81 mg tablet,delayed release 81 mg PO DAILY 02/06/25 cholecalciferol (vitamin D3) 50 mcg (2,000 unit) capsule (Vitamin D3) 50 mcg PO DAILY 02/06/25 erenumab-aooe 140 mg/mL subcutaneous auto-injector (Aimovig Autoinjector) 140 mg subcut QMONTH 02/06/25 fluoxetine 20 mg tablet 20 mg PO DAILY 02/06/25 fluticasone fur. 100 mcg-umeclid 62.5 mcg-vilant 25 mcg inhalat.powder (Trelegy Ellipta) 1 ea inhalation DAILY 02/06/25 gabapentin 800 mg tablet 800 mg PO TID 02/06/25 icosapent ethyl 1 gram capsule (Vascepa) 2 g PO BID 02/06/25 levothyroxine 75 mcg tablet (Synthroid) 75 mcg PO DAILY 02/06/25 metoprolol succinate 25 mg tablet,extended release 24 hr 25 mg PO DAILY 02/06/25 omeprazole 40 mg capsule,delayed release 40 mg PO DAILY 02/06/25 amoxicillin 875 mg-potassium clavulanate 125 mg tablet 1 tab PO BID #10 tabs 02/09/25 prednisone 10 mg tablet 10 mg PO DAILY #40 tabs 02/09/25 tirzepatide 12.5 mg/0.5 mL subcutaneous pen injector (Mounjaro) 12.5 mg (0.5 mL) subcut TH #2 mL 02/09/25 Hospital Course Operations None Procedures EKG and - (Chest x-ray/KUB/CTA chest) Summary of Care Provided Minutes Spent on Discharge: 38 Hospital Course: Patient is a 54-year-old white female who presented to the emergency department [facility] on 02/06/2025 with a chief complaint of lightheadedness. Patient reportedly went to her primary care physician's office to have a checkup and then had a near syncopal episode while she was there. She felt lightheaded so they sent her to the emergency department. Patient reported unexplained weight loss and had an episode of vomiting while she was in the office. Patient reported that she has been having intermittent near syncopal episodes for a couple weeks prior to presentation. She reported sometimes she is up moving around and does not think that they have happened while she has been sitting. On the day of presentation and occurred after she had been sitting in the waiting room and got up to step on the scale. Patient reported that she had been trying to take her medicines for couple weeks but due to nausea vomiting had been not able to tolerate them regularly. Patient not been using her inhaler either. Vital signs on presentation showed temperature of 98.4, heart rate 106, respiratory rate was 12, blood pressure was 114/83 and pulse ox was 88% on room air. She was placed on 2 L nasal cannula and oxygen saturation improved a 93%. CBC showed leukocytosis white count of 17.2. She did have a left shift with an 83.2% neutrophilia. Her white count has been chronically elevated for some time. Platelet count was normal. Chemistry panel showed mild hyponatremia with a sodium of 132, elevated serum creatinine at 1.40 with unknown baseline however her renal function had normalized at the time of discharge and was 1.15. Glucose was 130. Initial troponin was 31 with subsequent troponin at 25 and 23. proBNP was 1095. TSH was 21.9 with a normal free T4. Patient had not been compliant with her Synthroid due to her nausea vomiting. Her UA was concerning for infection and had significant amount of ketones at 150 due to starvation ketosis. Urine culture was sent. Chest x-ray was negative for any acute findings. CT of the chest was unremarkable. KUB showed no acute findings. She was admitted to the medical floor initially treated for heart failure initially. We did obtain an echocardiogram and it showed an EF of 65% with no evidence of diastolic dysfunction or wall motion abnormality and we suspect her proBNP was likely related to demand from her hypoxia and infection from her UTI. Her blood pressures remained low so her antihypertensives were held. We were able to add back her beta-aletha but I suspect with her weight loss she no longer needs the ARB so this was discontinued on discharge. She was found to have an Enterococcus UTI. It was sensitive to penicillin so she was started on Unasyn as it was also felt she had a pneumonia with markedly abnormal lung sounds on the right side. She was placed on methylprednisolone 40 every 8. The time of discharge was slow taper. She was found to be hypoxic on a fairly consistent basis despite improving lung sounds. I do think she probably needs oxygen at baseline and this may be contributing to her lightheadedness/presyncopal episodes as she was found to be quite hypoxic with exertion. She does still smoke. Ambulatory pulse ox was done prior to discharge. I have reviewed the oxygen testing, and this patient qualifies for the home equipment and portability. The patient is mobile in the home and the community. She required 2 L at rest and 4 L with exertion. She was advised not to smoke while she is wearing her oxygen. She intends to quit smoking at baseline. We did advise her nicotine patch taper. Her appetite improved dramatically with the treatment of her urinary tract infection and she was tolerating regular food without any episodes of abdominal pain, nausea, or vomiting. There is potentiation that the Mounjaro was attributing to her nausea vomiting as well. I did advise her to let her primary care doctor know if she restarted the Mounjaro and had recurrence of her nausea vomiting. As noted to be discontinued her irbesartan and kept her on her metoprolol at discharge. She is to continue steroids with a prednisone taper and a prescription for Augmentin was sent to complete her antibiotics for her pneumonia and her urinary tract infection. She is to follow-up with her primary care physician within the next 2 weeks and have asked that she established with pulmonary medicine. Referral was given and she is to call Monday to set up an appointment for hospital follow-up. Discharge diagnoses: Near syncope Acute hypoxia Right lower lobe pneumonia Acute exacerbation of COPD Enterococcus UTI Leukocytosis Severe malnutrition Troponin elevation CKD stage IIIb Essential hypertension GERD Metabolic acidosis Elevated anion gap Starvation ketosis Suspected COPD Chronic pain History of gout Hyperlipidemia Depression Anxiety Tobacco abuse Physical Exam Const alert, oriented x3, no apparent distress and average body habitus; Negative for healthy appearing or well nourished Constitutional Narrative: Very pleasant, upper middle-aged, white female, sitting up in the bed, watching television eating lunch, appears comfortable, nontoxic, looks older than stated age General Appearance: cooperative, comfortable, well kempt and well developed Exam Limitations: no limitations HEENT normocephalic, head/scalp atraumatic, hearing grossly normal bilaterally and moist oral mucous membranes HEENT Narrative: Mallampati is 2, no thrush Eyes conjunctivae normal Eyes Narrative: No scleral icterus Neck supple Neck Narrative: Trachea midline Resp normal respiratory effort, no retractions, no use of accessory muscles and No clear to auscultation bilaterally Resp Narrative: Diffusely diminished with few crackles at the right base but otherwise clear Auscultation: crackles; Negative for rhonchi or wheezes Cardio regular rate, regular rhythm, S1 normal heart sound, S2 normal heart sound, no murmurs, no rub, no gallops and no clicks GI normal to inspection, nondistended, normoactive bowel sounds, soft to palpation and non-tender Extremity no clubbing, cyanosis or edema Extremity Narrative: Pedal pulses are 2+ Skin skin turgor normal, no jaundice, no petechiae and no mottling Neuro moves all extremities and no focal motor deficits Speech: speech normal Psych affect normal Psych Narrative: Extremely pleasant, patient interacts appropriately, eye contact is good Medical Records Data Medical Nutrition Assessment Dietitian: Malnutrition Criteria Met Start: 02/07/25 15:52 Freq: Status: Active Protocol: Document 02/07/25 15:52 RMA (Rec: 02/07/25 15:52 RMA [id number]) Nutrition Malnutrition Evidence of Yes Malnutrition Exists Malnutrition (severe Acute Illness/Injury ): Evidenced By Suboptimal Energy Intake (Severe),Weight Loss (Severe) Clinical Problem Acute Disease or Injury Related Malnutrition Etiology Severe protein-calorie malnutrition in the context of acute illness related to altered GI function and inadequate oral/energy intake Signs/Symptoms as evidenced by ~10-11% unintentional weight loss x less than 1 month, BMI 23.7 and PO meeting less than 50 % estimated nutrition needs x past 2 weeks Status Active Problem Recommendation Dietitian Will liberalize diet to carbohydrate-controlled (no Recommendations/ caloric restriction). Changes Will add 120mL vanilla ensure plus HP w/ meals. Additional ONS as appetite and PO improve at meals. Trend weights closely. Weight / BMI Weight Weight: 71.1 kg Body Mass Index (BMI) 26.1 ABG / Lab / Microbiology Data 02/09/25 04:49 02/09/25 04:49 Laboratory: Laboratory Results - last 24 hr 02/08/25 16:34: POC Glucose 186 H 02/08/25 20:21: POC Glucose 195 H 02/09/25 04:49: WBC 25.4 H, RBC 3.31 L, Hgb 11.6 L, Hct 31.6 L, MCV 95.5, MCH 35.0 H, MCHC 36.7 H, RDW Std Deviation 61.1 H, RDW Coeff of Cipriano 17.5 H, Plt Count 281, MPV 10.4, Immature Gran % (Auto) 1.400 H, Neut % (Auto) 89.0 H, Lymph % (Auto) 6.3 L, [place] % (Auto) 3.1, Eos % (Auto) 0.0, Baso % (Auto) 0.2, Absolute Neuts (auto) 22.6 H, Absolute Lymphs (auto) 1.61, Nucleated RBC % 0.2, Differential Comment SCANNED, Sodium 135, Potassium 4.1, Chloride 104, Carbon Dioxide 20.6 L, Anion Gap 11, BUN 22 H, Creatinine 1.15, Estim Creat Clear Calc 54.66, Est GFR (MDRD) Non-Af 56 L, BUN/Creatinine Ratio 18.7, Glucose 128 H, Calcium 8.4, Phosphorus 3.4 02/09/25 11:51: POC Glucose 217 H Microbiology: Microbiology 02/06/25 18:45 Urine, Clean Catch Urine Culture - Final Enterococcus faecalis 02/07/25 16:12 Mucosa - Nose Respiratory Panel (PCR) - Final 02/06/25 11:35 Mucosa - Nose SARS-CoV-2, Influenza & RSV (PCR) - Final D/C Instructions Discharge Diet: No restrictions Discharge Activity: Return to Normal Activity Return to work on: 02/12/25 DC O2, CPAP, BIPAP Needs Home O2 Discharge instructions: Yes Type of respiratory needs?: Oxygen Oxygen frequency: At rest and With Ambulation Oxygen liters per minute during Ambulation: 4 DC home with Oxygen: Yes Home O2 MD Review: I have reviewed the oxygen testing, and the patient qualifies for home oxygen equipment and portability. The patient is mobile in the home and the community. Meaningful Use Info Meaningful Use Meaningful Use Diagnoses (Choose all that apply): None applicable Ischemic Stroke Statin Dosing Therapy Reference: STATIN DOSE THERAPY REFERENCE: * Patients > 75 years receive moderate or high dose statin therapy. * Patients 75 years or YOUNGER should receive HIGH intensity statin dose unless contraindicated. You will be required to document reason for non-treatment if statin daily dose does not meet guidelines. HIGH DOSE STATIN THERAPY DAILY Atorvastatin > than or = to 40 mg Rosuvastatin > than or = to 20 mg Amlodipine + Atorvastatin > than or = to 2.5/40 mg Ezetimibe + Simvastatin 10/80 mg Simvastatin 80mg Discharge Plan Admission Admit Date/Time: 02/07/25 13:20 Primary Reason for Your Visit: lightheadedness Attending Provider: Amy Zavala Primary Care Provider: Aron Palumbo Consulting Providers: Keisha Del Cid Instructions Additional Instructions / Restrictions: 1. Please call the pulmonary office below on Monday and set up an appointment to be seen as soon as possible for COPD and posthospital follow-up 2. Please complete prednisone taper and antibiotics as prescribed 3. You need 2 L of oxygen at rest and while sleeping and 4 L with exertion. Please do not change this until instructed to do so by a physician Discharge Orders/Prescriptions Prescriptions: New amoxicillin-pot clavulanate 875-125 mg tablet 1 tab PO BID Qty: 10 0RF prednisone 10 mg tablet 10 mg PO DAILY Qty: 40 0RF Rx Instructions: 4 tablets x 4 days, 3 tablets x 4 days, 2 tablets x 4 days, 1 tablet x 4 days Continued montelukast 10 MG tablet 10 mg PO DAILY Patient Comments: PT MAY TAKE AT NIGHT, NOT SURE febuxostat 80 MG tablet 80 mg PO DAILY potassium citrate 15 MEQ tablet extended release 15 meq PO DAILY PRN (Reason: with lasix) Patient Comments: take with lasix as needed cetirizine 10 MG capsule 10 mg PO DAILY atorvastatin 40 MG tablet 40 mg PO QHS lidocaine 1 PATCH patch 1 - 2 patch topical QHS Patient Comments: Rx Instructions: on 12 hours, off 12 hours. PT USES 1-2 PATCHES sodium chloride 30 ML aerosol,spray 1 spray NS Q2H PRN (Reason: Allergies) buprenorphine [Butrans] 1 EACH patch weekly 20 mcg transdermal SA Rx Instructions: WEARS FOR 7 DAYS Trelegy Ellipta 100-62.5-25 mcg blister with device 1 ea inhalation DAILY gabapentin 800 mg tablet 800 mg PO TID omeprazole 40 mg capsule,delayed release(DR/EC) 40 mg PO DAILY aspirin 81 mg tablet,delayed release (DR/EC) 81 mg PO DAILY cholecalciferol (vitamin D3) [Vitamin D3] 50 mcg (2,000 unit) capsule 50 mcg PO DAILY Aimovig Autoinjector 140 mg/mL auto-injector 140 mg subcut QMONTH levothyroxine [Synthroid] 75 mcg tablet 75 mcg PO DAILY Patient Comments: PT MUST TAKE NAME BRAND SYNTHROID fluoxetine 20 mg tablet 20 mg PO DAILY metoprolol succinate 25 mg tablet extended release 24 hr 25 mg PO DAILY icosapent ethyl [Vascepa] 1 gram capsule 2 g PO BID Mounjaro 12.5 mg/0.5 mL pen injector 12.5 mg subcut TH Qty: 2 0RF Patient Comments: PT HASNT TAKEN IN A COUPLE WEEKS, MED ON BACK ORDER Rx Instructions: If you restart this and get nausea and vomiting would stop and discuss with your doctor Held irbesartan 75 MG tablet 75 mg PO QHS Hold Instructions: Until instructed by a physician to restart. Your blood pressures have been low and it does not appear that you need it with the weight loss you have had Discontinued duloxetine 60 MG capsule,delayed release(DR/EC) 60 mg PO DAILY furosemide 20 mg tablet 20 mg PO DAILY PRN (Reason: swelling) Patient Comments: TAKE WITH POTASSIUM Referrals / Follow Up: Javier Page DO [Med Staff - Active Staff] - See Referral Note (Call to set up an appointment to be seen at their first availability) Aron Palumbo MD [Primary Care Provider] - Within 2 Weeks Disposition Disposition (needs filled in before D/C Order can be placed): Home, Self Care Charges/Coding Visit Charges Inpatient E&M: 19652 Disch Hosp >30min
== END 2025-02-09 15:57 | disposition home or self-care (01) | DRG 689 ==
LOC: ED 14:19 → PCU 14:34
PROVIDERS: Internal Medicine; Admitting Provider Internal Medicine; Emergency Provider Emergency Medicine; PCP Family Medicine; Visit Provider Internal Medicine
DX: N39.0 Urinary tract infection, site not specified (principal); E43 Unspecified severe protein-calorie malnutrition; E87.20 Acidosis, unspecified; J44.0 Chronic obstructive pulmonary disease with (acute) lower respiratory infection; I13.0 Hypertensive heart and chronic kidney disease with heart failure and stage 1 through stage 4 chronic kidney disease, or unspecified chronic kidney disease; J44.1 Chronic obstructive pulmonary disease with (acute) exacerbation; E87.1 Hypo-osmolality and hyponatremia; I50.30 Unspecified diastolic (congestive) heart failure; E88.89 Other specified metabolic disorders; E83.39 Other disorders of phosphorus metabolism; E11.22 Type 2 diabetes mellitus with diabetic chronic kidney disease; D72.829 Elevated white blood cell count, unspecified; B95.2 Enterococcus as the cause of diseases classified elsewhere; N18.32 Chronic kidney disease, stage 3b; E03.9 Hypothyroidism, unspecified; F32.A Depression, unspecified; F41.9 Anxiety disorder, unspecified; E78.5 Hyperlipidemia, unspecified; K21.9 Gastro-esophageal reflux disease without esophagitis; F17.210 Nicotine dependence, cigarettes, uncomplicated; N18.30 Chronic kidney disease, stage 3 unspecified; R11.2 Nausea with vomiting, unspecified; M10.9 Gout, unspecified; R55 Syncope and collapse; Z79.82 Long term (current) use of aspirin; G89.29 Other chronic pain; R09.02 Hypoxemia; Z79.890 Hormone replacement therapy; Z79.899 Other long term (current) drug therapy; Z79.51 Long term (current) use of inhaled steroids; R79.89 Other specified abnormal findings of blood chemistry; Z68.23 Body mass index [BMI] 23.0-23.9, adult
CPT/HCPCS: 36415; 71046; 71275; 74018; 80048; 80053; 80307; 81001; 82010; 82962; 83036; 83605; 83735; 83880; 84100; 84439; 84443; 84481; 84484; 85025; 87077; 87086; 87088; 87186; 87631; 87633; 93005; 93306; 93880; 94640; 94668; 97802; 99285; 99406; Q9967; A4216; J0295; J2405

== ENCOUNTER → 2025-05-01 | Outpatient (CLI) | payer MEDICARE, MEDICAID, SELFPAY ==
--- NOTE | 2025-05-01 09:24 | CPS ---
No aerosol rx administered. Pt stated that she was allergic to albuterol. Pt stated that if she takes albuterol she would end up having an asthma attack at some point today.
== END | disposition home or self-care (01) ==
LOC: PSN 08:35
PROVIDERS: PCP Family Medicine; Referring Provider Internal Medicine Critical Care Medicine; Visit Provider Internal Medicine Critical Care Medicine
DX: F17.210 Nicotine dependence, cigarettes, uncomplicated (principal); R06.09 Other forms of dyspnea
CPT/HCPCS: 94010; 94726; 94729

== ENCOUNTER → 2025-05-08 | Outpatient (CLI) | payer MEDICARE, MEDICAID, SELFPAY ==
[2025-05-08 14:14] VITALS: PULSE 100; PULSE 101; PULSE 102; PULSE 103; PULSE 104; PULSE 106; PULSE 90; PULSE 91; O2SAT 86; O2SAT 89; O2SAT 90; O2SAT 92; O2SAT 94; O2SAT 95; O2SAT 96
--- NOTE | 2025-05-08 14:17 | CPS ---
PATIENT ARRIVED FOR 6MWT ON OXYGEN AND WEARING A BOOT ON HER LEFT FOOT FOR A BROKEN TOE. DISCUSSED R/S APPT D/T BOOT HOWEVER SHE DECLINED AND WISHED TO CONTINUE STATING "IT'S NOT GOING ANYWHERE SOON". PLACED ON ROOM AIR FOR 20 MINUTES PRIOR TO TESTING. 2 BRIEF REST PERIODS TAKEN DURING TESTING FOR INCREASED WOB AND TO APPLY 2LPM DEMAND FLOW 0XYGEN (PT OWN POC DEVICE) FOR SPO2 86% AT 3 MINUTES. 2LPM DEMAND FLOW WAS ABLE TO BE MAINTAINED FOR DURATION OF TESTING. PATIENT AMBULATED A TOTAL OF 554 FT. SHE USES [employer] FOR OXYGEN SUPPLY.
--- NOTE | 2025-05-09 11:09 | PCM.PSN.6M ---
PSN 6 Minute Walk Test 6 Minute Walk Test 6 Minute Walk Test: 6 Minute Walk Test PSN:6-Minute Walk Test Start: 05/08/25 14:13 Freq: Status: Active Protocol: RESP.6MINW Document 05/08/25 14:14 [facility] (Rec: 05/08/25 14:28 [facility] [id number]) 6 Minute Walk Test Date Performed 05/08/25 Time Performed 13:45 Height 5 ft 5 in Weight: 180 lb Weight in Pounds 180.[address]: Javier Page Assistive device None used: Pre-test Oxygen Delivery Room Air Method Pulse Ox (%) 95 Pulse Rate (60-100 91 beats/min) Dyspnea Jia Scale ( 2 0-10) Exertion Jia Scale 7 (6-20) 1st minute Oxygen Delivery Room Air Method Pulse Ox (%) 90 Pulse Rate (60-100 100 beats/min) Dyspnea Jia Scale ( 3 0-10) Number of Rests 0 Taken Reported Symptoms Increased Work of Breathing 2nd minute Oxygen Delivery Room Air Method Pulse Ox (%) 89 Pulse Rate (60-100 102 H beats/min) Dyspnea Jia Scale ( 3 0-10) Number of Rests 1 Taken Reported Symptoms Increased Work of Breathing 3rd minute Oxygen Delivery Room Air Method Pulse Ox (%) 86 Pulse Rate (60-100 104 H beats/min) Dyspnea Jia Scale ( 4 0-10) Number of Rests 1 Taken Reported Symptoms Increased Work of Breathing 4th minute Oxygen Flow Rate (L/ 2 min) (L/min) Oxygen Delivery Nasal Cannula Method Pulse Ox (%) 94 Pulse Rate (60-100 103 H beats/min) Dyspnea Jia Scale ( 4 0-10) Number of Rests 0 Taken Reported Symptoms Increased Work of Breathing 5th minute Oxygen Flow Rate (L/ 2 min) (L/min) Oxygen Delivery Nasal Cannula Method Pulse Ox (%) 92 Pulse Rate (60-100 101 H beats/min) Dyspnea Jia Scale ( 4 0-10) Number of Rests 0 Taken Reported Symptoms Increased Work of Breathing 6th minute Oxygen Flow Rate (L/ 2 min) (L/min) Oxygen Delivery Nasal Cannula Method Pulse Ox (%) 92 Pulse Rate (60-100 106 H beats/min) Dyspnea Jia Scale ( 4 0-10) Number of Rests 0 Taken Reported Symptoms Increased Work of Breathing Post-test Oxygen Flow Rate (L/ 2 min) (L/min) Oxygen Delivery Nasal Cannula Method Pulse Ox (%) 96 Pulse Rate (60-100 90 beats/min) Dyspnea Jia Scale ( 2 0-10) Exertion Jia Scale 7 (6-20) Full Laps Walked 9 Partial Lap, Number 23 of Tiles Walked Total Distance 554 Walked (ft) 05/08/25 14:17 Cardiopulmonary Services by Betsy Fernández PATIENT ARRIVED FOR 6MWT ON OXYGEN AND WEARING A BOOT ON HER LEFT FOOT FOR A BROKEN TOE. DISCUSSED R/S APPT D/T BOOT HOWEVER SHE DECLINED AND WISHED TO CONTINUE STATING "IT'S NOT GOING ANYWHERE SOON". PLACED ON ROOM AIR FOR 20 MINUTES PRIOR TO TESTING. 2 BRIEF REST PERIODS TAKEN DURING TESTING FOR INCREASED WOB AND TO APPLY 2LPM DEMAND FLOW 0XYGEN (PT OWN POC DEVICE) FOR SPO2 86% AT 3 MINUTES. 2LPM DEMAND FLOW WAS ABLE TO BE MAINTAINED FOR DURATION OF TESTING. PATIENT AMBULATED A TOTAL OF 554 FT. SHE USES [employer] FOR OXYGEN SUPPLY. Initialized on 05/08/25 14:17 - END OF NOTE Interpretation Interpretation: The patient ambulated 554 feet over the course of 6 minutes beginning on room air without assistive devices. Pretesting oxygen saturation was noted to be 95% on room air. With ambulation, the harpal oxygen saturation was 86%, requiring the initiation of 2 L/min of pulsed dose supplemental oxygen to maintain appropriate saturations. Recommendations Recommendations: 2 L/min of pulsed dose supplemental oxygen should be utilized with exertion.
== END | disposition home or self-care (01) ==
LOC: PSN 13:29
PROVIDERS: PCP Family Medicine; Referring Provider Internal Medicine Critical Care Medicine; Visit Provider Internal Medicine Critical Care Medicine
DX: F17.210 Nicotine dependence, cigarettes, uncomplicated (principal); R06.09 Other forms of dyspnea
CPT/HCPCS: 94618

== ENCOUNTER → 2025-06-19 | Outpatient (CLI) | payer MEDICARE, MEDICAID, SELFPAY | END | disposition home or self-care (01) | LOC: SL 20:05 | PROVIDERS: PCP Family Medicine; Referring Provider Nurse Practitioner Acute Care; Visit Provider Nurse Practitioner Acute Care | DX: G47.10 Hypersomnia, unspecified (principal) | CPT/HCPCS: 95810 ==

== ENCOUNTER → 2025-07-03 | Outpatient (CLI) | payer MEDICARE, MEDICAID, SELFPAY ==
[2025-07-03 17:39] LABS: Hematocrit 35.6 % (37-47); Hemoglobin 11.6 g/dL (12.0-15.0); Immature Granulocytes Count 0.080 X10^3/uL (0.0-0.0); Mean Corp Hgb Conc 32.6 g/dL (32-36); Mean Corpuscular Volume 88.6 fL (81-99); Mean Platelet Vol. 9.1 fl (6.2-12.0); NRBC Flagged by Analyzer 0 % (0-5); Platelet Count 428 K/mm3 (150-450); RBC Distribution Width CV 14.6 % (11.6-14.6); RBC Distribution Width SD 46.9 fl (35.1-43.9); Red Blood Count 4.02 M/mm3 (4.2-5.4); White Blood Count 17.5 K/mm3 (4.4-11.0)
[2025-07-03 18:19] LABS: AST(SGOT) 17 U/L (<=31); Alanine Aminotransfer ALT/SGPT 6 U/L (<=34); Albumin, Serum 3.9 g/dL (3.5-5.0); Alkaline Phosphatase 77 U/L (35-104); Anion Gap 15 (5-15); BUN 19 mg/dL (4-19); BUN/Creat Ratio 9.4 RATIO (10-20); Calcium,Total 9.5 mg/dL (7.6-11.0); Carbon Dioxide 22.3 mmol/L (21.0-32.0); Chloride 99 mmol/L (98-108); Globulin 3.4 g/dL (2.2-4.2); Glucose 113 mg/dL (70-99); Potassium 4.6 mmol/L (3.3-5.1)
== END | disposition home or self-care (01) ==
LOC: MFPLAB 11:54
PROVIDERS: PCP Family Medicine; Visit Provider Family Medicine
DX: E11.40 Type 2 diabetes mellitus with diabetic neuropathy, unspecified (principal)
CPT/HCPCS: 36415; 80053; 83036; 84443; 85025

== ENCOUNTER → 2025-07-25 | Outpatient (CLI) | payer MEDICARE, MEDICAID, SELFPAY ==
[2025-07-25 15:27] LABS: Follicle Stimulating Hormone 51.6 mIU/mL
[2025-07-27 07:07] LABS: PROGESTERONE 0.3 ng/mL (.)
== END | disposition home or self-care (01) ==
LOC: MFPLAB 11:45
PROVIDERS: PCP Family Medicine; Visit Provider Family Medicine
DX: N95.9 Unspecified menopausal and perimenopausal disorder (principal)
CPT/HCPCS: 36415; 82670; 83001; 83002; 84144

== ENCOUNTER → 2025-09-02 | Outpatient (CLI) | payer MEDICARE, MEDICAID, SELFPAY ==
--- NOTE | 2025-09-02 13:18 | BI_ITS ---
EXAM: SCRN MAMM (CAD)W/ZELALEM BILAT DATE: 09/02/2025 CLINICAL HISTORY: F, Age 55 y/o , ANNUAL SCREENING No family history. Prior bilateral breast reduction surgery and right stereotactic breast biopsies. TECHNIQUE: Procedure Code: [id number] Modality: MG Procedure: SCRN MAMM (CAD)W/ZELALEM BILAT COMPARISON: Prior exam(s) dated August 29, 2024.. FINDINGS: TISSUE DENSITY: The breasts are almost entirely fatty. Bilateral Breast Mammographic Findings: No significant masses, calcifications or other abnormalities are identified. Stable dystrophic calcification in the deep central medial aspect of the right breast most likely secondary to prior breast reduction surgery. A tissue clip marker is once again seen within a tiny nodule. No suspicious masses, areas of developing architectural distortion, or suspicious calcifications. There has been no significant interval change. BI/SCRN MAMM (CAD)W/ZELALEM BILAT IMPRESSION: Stable bilateral screening mammogram. OVERALL FINAL ASSESSMENT BI-RADS 2: BENIGN RECOMMENDATION: Routine annual follow-up in 1 Year Additional Recommendation none A letter with findings and recommendations will be mailed to the patient. Reading Location: [id number]
== END | disposition home or self-care (01) ==
LOC: OPBI 13:17
PROVIDERS: PCP Family Medicine; Referring Provider Family Medicine; Visit Provider Family Medicine
DX: Z12.31 Encounter for screening mammogram for malignant neoplasm of breast (principal)
CPT/HCPCS: 77063; 77067